=== PATIENT | male | born 1950 | race Two or more races ===

== ENCOUNTER 2020-04-03 06:20 | Outpatient (REF) | payer OTHER, MEDICARE, SELFPAY ==
[2020-04-03 07:18] LABS: MANUAL DIFF FLAG NO
[2020-04-03 07:23] LABS: Basophils Absolute Auto 0.1 X10*3/uL (0.0-0.2); Basophils Percent Auto 0.7 % (0-2); Eosinophils Absolute Auto 0.4 X10*3/uL (0.0-0.4); Eosinophils Percent Auto 5.5 % (0-4); Hematocrit 42.6 % (42-52); Hemoglobin 13.9 g/dl (14.0-18.0); Imm Gran Abs Auto 0.02 X10*3/uL (0.00-0.03); Imm Gran Pct Auto 0.3 % (0.0-0.4); Lymphocytes Absolute Auto 1.4 X10*3/uL (1.2-4.9); Lymphocytes Percent Auto 20.1 % (20-40); Mean Corpuscular HGB Conc 32.6 g/dl (31.0-36.0); Mean Corpuscular Hemoglobin 27.1 pg (27.0-33.0); Mean Platelet Volume 11.2 fL (9.4-12.4); Monocytes Absolute Auto 0.6 X10*3/uL (0.1-1.2); Monocytes Percent Auto 7.9 % (2-11); Neutrophils Absolute Auto 4.7 X10*3/uL (2.0-8.3); Neutrophils Percent Auto 65.5 % (45-73); Platelet Count 165 X10*3/uL (160-400); Red Blood Count 5.13 X10*6/uL (4.60-5.80); Red Cell Distribution Width 13.2 % (11.0-16.0); White Blood Count 7.1 X10*3/uL (4.8-10.8)
[2020-04-03 07:31] LABS: Glucose Urine UA NEG (NEG); Leukocyte Esterase Urine NEG (NEG); Nitrite Urine NEG (NEG); PH 5.5 (5.0-8.0); Specific Gravity - Urine 1.025 (1.005-1.025); Urine Blood NEG (NEG); Urine Ketones NEG (NEG); Urine Protein NEG (NEG-TRACE)
[2020-04-03 07:32] LABS: Appearance Urine CLEAR; Color Urine YELLOW
[2020-04-03 07:34] LABS: Alanine Aminotransferase 23 U/L (0-40); Albumin Level 4.2 g/dL (3.5-5.0); Alkaline Phosphatase 54 U/L (39-117); Anion Gap 13 (12-20); Aspartate Amino Transferase 19 U/L (5-37); Bilirubin Total 0.3 mg/dL (0.0-1.0); Blood Urea Nitrogen 19 mg/dL (9-16); Calcium 9.1 mg/dL (8.4-10.2); Carbon Dioxide 27 mmol/L (22-29); Chloride 103 mmol/L (96-108); Cholesterol 129 mg/dL; Estimated Glomerular Filt Rate > 60; Glucose Fasting 122 mg/dL (60-99); HDL Cholesterol 41 mg/dL; LDL Cholesterol Calculated 73 mg/dl; Potassium 4.9 mmol/l (3.3-5.1); Sodium 138 mmol/L (135-145); Total Protein 6.8 g/dL (6.5-8.0); Triglycerides 76 mg/dL
[2020-04-03 07:47] LABS: RBC Urine 0 /HPF (0); WBC Urine 0 /HPF (0-4)
[2020-04-03 07:59] LABS: TSH reflex Free T4 1.42 mIU/mL (0.32-4.0); Vitamin D 25-OH Total 47.3 ng/mL (>30)
[2020-04-03 08:32] LABS: Creatinine Urine 103.43 mg/dL; Microalbum/Creatinine Ratio Ur 4.8 ug/mg cr
== END 2020-04-03 06:21 | disposition home or self-care (01) ==
LOC: HO.LAB 06:20
PROVIDERS: Visit Provider Internal Medicine
DX: E78.5 Hyperlipidemia, unspecified (principal); E11.9 Type 2 diabetes mellitus without complications; I10 Essential (primary) hypertension; E55.9 Vitamin D deficiency, unspecified; E66.3 Overweight
CPT/HCPCS: 36415; 80053; 80061; 81001; 82043; 82306; 84443; 85025

== ENCOUNTER 2020-08-01 06:22 | Outpatient (REF) | payer OTHER, MEDICARE, SELFPAY ==
[2020-08-01 07:51] LABS: MANUAL DIFF FLAG NO
[2020-08-01 07:54] LABS: Basophils Absolute Auto 0.1 X10*3/uL (0.0-0.2); Basophils Percent Auto 0.8 % (0-2); Eosinophils Absolute Auto 0.4 X10*3/uL (0.0-0.4); Eosinophils Percent Auto 5.1 % (0-4); Hematocrit 45.2 % (42-52); Imm Gran Abs Auto 0.04 X10*3/uL (0.00-0.03); Imm Gran Pct Auto 0.5 % (0.0-0.4); Lymphocytes Absolute Auto 1.9 X10*3/uL (1.2-4.9); Lymphocytes Percent Auto 22.5 % (20-40); Mean Corpuscular HGB Conc 33.2 g/dl (31.0-36.0); Mean Corpuscular Hemoglobin 27.6 pg (27.0-33.0); Mean Corpuscular Volume 83.2 fL (80-98); Mean Platelet Volume 11.1 fL (9.4-12.4); Monocytes Absolute Auto 0.6 X10*3/uL (0.1-1.2); Monocytes Percent Auto 6.9 % (2-11); Neutrophils Absolute Auto 5.4 X10*3/uL (2.0-8.3); Neutrophils Percent Auto 64.2 % (45-73); Platelet Count 165 X10*3/uL (160-400); Red Blood Count 5.43 X10*6/uL (4.60-5.80); Red Cell Distribution Width 13.2 % (11.0-16.0); White Blood Count 8.4 X10*3/uL (4.8-10.8)
[2020-08-01 07:59] LABS: Estimated Average Glucose 140 mg/dL; Hemoglobin A1c % 6.5 %
[2020-08-01 08:09] LABS: Glucose Urine UA NEG (NEG); Leukocyte Esterase Urine NEG (NEG); Nitrite Urine NEG (NEG); Urine Blood NEG (NEG); Urine Ketones NEG (NEG); Urine Protein NEG (NEG-TRACE)
[2020-08-01 08:11] LABS: Appearance Urine CLEAR; Color Urine YELLOW
[2020-08-01 08:16] LABS: Alanine Aminotransferase 20 U/L (0-40); Albumin Level 4.5 g/dL (3.5-5.0); Alkaline Phosphatase 63 U/L (39-117); Anion Gap 11 (12-20); Aspartate Amino Transferase 18 U/L (5-37); Bilirubin Total 0.7 mg/dL (0.0-1.0); Blood Urea Nitrogen 19 mg/dL (9-16); Calcium 9.5 mg/dL (8.4-10.2); Carbon Dioxide 30 mmol/L (22-29); Chloride 103 mmol/L (96-108); Cholesterol 150 mg/dL; Estimated Glomerular Filt Rate 60; Glucose Fasting 143 mg/dL (60-99); HDL Cholesterol 40 mg/dL; LDL Cholesterol Calculated 89 mg/dl; Potassium 5.5 mmol/L (3.3-5.1); Sodium 138 mmol/L (135-145); Total Protein 7.2 g/dL (6.5-8.0); Triglycerides 105 mg/dL
[2020-08-01 08:39] LABS: TSH reflex Free T4 1.49 uIU/mL (0.32-4.0); Vitamin D 25-OH Total 43.1 ng/mL (>30)
== END 2020-08-01 06:23 | disposition home or self-care (01) ==
LOC: HO.LAB 06:22
PROVIDERS: PCP Internal Medicine; Visit Provider Internal Medicine
DX: I10 Essential (primary) hypertension (principal); E78.00 Pure hypercholesterolemia, unspecified; E11.9 Type 2 diabetes mellitus without complications; E55.9 Vitamin D deficiency, unspecified
CPT/HCPCS: 36415; 80053; 80061; 81003; 82306; 83036; 84443; 85025

== ENCOUNTER 2021-04-03 06:12 | Outpatient (REF) | payer OTHER, MEDICARE, SELFPAY ==
[2021-04-03 06:18] LABS: MANUAL DIFF FLAG NO
[2021-04-03 08:33] LABS: Basophils Percent Auto 0.5 % (0-2); Eosinophils Absolute Auto 0.5 X10*3/uL (0.0-0.4); Eosinophils Percent Auto 6.4 % (0-4); Hematocrit 43.2 % (42.0-52.0); Hemoglobin 14.4 g/dl (14.0-18.0); Imm Gran Abs Auto 0.03 X10*3/uL (0.00-0.03); Imm Gran Pct Auto 0.4 % (0.0-0.4); Lymphocytes Absolute Auto 1.7 X10*3/uL (1.2-4.9); Mean Corpuscular HGB Conc 33.3 g/dl (31.0-36.0); Mean Corpuscular Volume 81.1 fL (80.0-98.0); Mean Platelet Volume 11.3 fL (9.4-12.4); Monocytes Absolute Auto 0.7 X10*3/uL (0.1-1.2); Monocytes Percent Auto 8.4 % (2-11); Neutrophils Absolute Auto 5.4 x10*3/uL (2.0-8.3); Neutrophils Percent Auto 64.3 % (45-73); Platelet Count 164 X10*3/uL (160-400); Red Blood Count 5.33 X10*6/uL (4.60-5.80); Red Cell Distribution Width 12.8 % (11.0-16.0); White Blood Count 8.5 X10*3/uL (4.8-10.8)
[2021-04-03 09:13] LABS: Alanine Aminotransferase 18 U/L (0-40); Albumin Level 4.4 g/dL (3.5-5.0); Alkaline Phosphatase 66 U/L (39-117); Anion Gap 11 (12-20); Aspartate Amino Transferase 16 U/L (5-37); Bilirubin Total 0.4 mg/dL (0.0-1.0); Blood Urea Nitrogen 21 mg/dL (9-16); Calcium 9.2 mg/dL (8.4-10.2); Carbon Dioxide 28 mmol/L (22-29); Chloride 105 mmol/L (96-108); Cholesterol 154 mg/dL; Estimated Glomerular Filt Rate 59; Glucose Fasting 157 mg/dL (60-99); HDL Cholesterol 34 mg/dL; LDL Cholesterol Calculated 99 mg/dl; Potassium 4.4 mmol/L (3.3-5.1); Sodium 140 mmol/L (135-145); Triglycerides 105 mg/dL
[2021-04-03 09:16] LABS: Appearance Urine CLEAR; Color Urine YELLOW; Glucose Urine UA NEG (NEG); Leukocyte Esterase Urine NEG (NEG); Nitrite Urine NEG (NEG); Specific Gravity - Urine 1.025 (1.005-1.025); Urine Blood NEG (NEG); Urine Ketones NEG (NEG); Urine Protein NEG (NEG-TRACE)
[2021-04-03 09:21] LABS: TSH reflex Free T4 1.65 uIU/mL (0.32-4.0); Vitamin D 25-OH Total 34.8 ng/mL (>30)
[2021-04-03 09:48] LABS: Creatinine Urine 155.56 mg/dL; Microalbum/Creatinine Ratio Ur 8.3 ug/mg cr
[2021-04-03 14:00] LABS: Estimated Average Glucose 174 mg/dL; Hemoglobin A1c % 7.7 %
== END 2021-04-03 06:13 | disposition home or self-care (01) ==
LOC: HO.LAB 06:12
PROVIDERS: PCP Internal Medicine; Visit Provider Internal Medicine
DX: E78.00 Pure hypercholesterolemia, unspecified (principal); E11.9 Type 2 diabetes mellitus without complications; E55.9 Vitamin D deficiency, unspecified; I10 Essential (primary) hypertension
CPT/HCPCS: 36415; 80053; 80061; 81003; 82043; 82306; 83036; 84443; 85025

== ENCOUNTER 2021-08-04 05:59 | Outpatient (REF) | payer OTHER, MEDICARE, SELFPAY ==
[2021-08-04 06:13] LABS: MANUAL DIFF FLAG NO
[2021-08-04 07:12] LABS: Basophils Absolute Auto 0.1 X10*3/uL (0.0-0.2); Basophils Percent Auto 0.6 % (0-2); Eosinophils Absolute Auto 0.5 X10*3/uL (0.0-0.4); Eosinophils Percent Auto 5.1 % (0-4); Hematocrit 41.6 % (42.0-52.0); Hemoglobin 13.5 g/dl (14.0-18.0); Imm Gran Abs Auto 0.06 X10*3/uL (0.00-0.03); Imm Gran Pct Auto 0.6 % (0.0-0.4); Lymphocytes Absolute Auto 1.9 X10*3/uL (1.2-4.9); Lymphocytes Percent Auto 19.7 % (20-40); Mean Corpuscular HGB Conc 32.5 g/dl (31.0-36.0); Mean Corpuscular Hemoglobin 26.7 pg (27.0-33.0); Mean Corpuscular Volume 82.4 fL (80.0-98.0); Mean Platelet Volume 10.7 fL (9.4-12.4); Monocytes Absolute Auto 0.7 X10*3/uL (0.1-1.2); Monocytes Percent Auto 6.7 % (2-11); Neutrophils Absolute Auto 6.5 x10*3/uL (2.0-8.3); Neutrophils Percent Auto 67.3 % (45-73); Platelet Count 207 X10*3/uL (160-400); Red Blood Count 5.05 X10*6/uL (4.60-5.80); Red Cell Distribution Width 13.2 % (11.0-16.0); White Blood Count 9.7 X10*3/uL (4.8-10.8)
[2021-08-04 07:18] LABS: Estimated Average Glucose 154 mg/dL
[2021-08-04 07:29] LABS: Alanine Aminotransferase 18 U/L (0-40); Albumin Level 4.5 g/dL (3.5-5.0); Alkaline Phosphatase 67 U/L (39-117); Anion Gap 14 (12-20); Aspartate Amino Transferase 15 U/L (5-37); Bilirubin Total 0.4 mg/dL (0.0-1.0); Blood Urea Nitrogen 18 mg/dL (9-16); Calcium 9.7 mg/dL (8.4-10.2); Carbon Dioxide 26 mmol/L (22-29); Chloride 104 mmol/L (96-108); Cholesterol 151 mg/dL; Estimated Glomerular Filt Rate > 60; Glucose Fasting 157 mg/dL (60-99); HDL Cholesterol 40 mg/dL; LDL Cholesterol Calculated 93 mg/dl; Sodium 139 mmol/L (135-145); Total Protein 7.2 g/dL (6.5-8.0); Triglycerides 93 mg/dL
[2021-08-04 07:50] LABS: Vitamin D 25-OH Total 34.7 ng/mL (>30)
[2021-08-04 08:42] LABS: Appearance Urine CLEAR; Color Urine YELLOW; Glucose Urine UA NEG (NEG); Leukocyte Esterase Urine NEG (NEG); Nitrite Urine NEG (NEG); Specific Gravity - Urine 1.025 (1.005-1.025); Urine Blood NEG (NEG); Urine Ketones NEG (NEG); Urine Protein NEG (NEG-TRACE)
[2021-08-04 08:49] LABS: Creatinine Urine 170.09 mg/dL; Microalbum/Creatinine Ratio Ur 10.5 ug/mg cr
== END 2021-08-04 06:00 | disposition home or self-care (01) ==
LOC: HO.LAB 05:59
PROVIDERS: PCP Internal Medicine; Visit Provider Internal Medicine
DX: E78.00 Pure hypercholesterolemia, unspecified (principal); E55.9 Vitamin D deficiency, unspecified; E11.9 Type 2 diabetes mellitus without complications; I10 Essential (primary) hypertension
CPT/HCPCS: 36415; 80053; 80061; 81003; 82043; 82306; 83036; 84443; 85025

== ENCOUNTER 2021-12-07 06:06 | Outpatient (REF) | payer OTHER, MEDICARE, SELFPAY ==
[2021-12-07 06:23] LABS: MANUAL DIFF FLAG NO
[2021-12-07 08:00] LABS: Basophils Absolute Auto 0.1 X10*3/uL (0.0-0.2); Basophils Percent Auto 0.9 % (0-2); Eosinophils Absolute Auto 0.5 X10*3/uL (0.0-0.4); Eosinophils Percent Auto 6.1 % (0-4); Hematocrit 44.6 % (42.0-52.0); Hemoglobin 14.2 g/dl (14.0-18.0); Imm Gran Abs Auto 0.03 X10*3/uL (0.00-0.03); Imm Gran Pct Auto 0.4 % (0.0-0.4); Lymphocytes Absolute Auto 1.4 X10*3/uL (1.2-4.9); Lymphocytes Percent Auto 17.9 % (20-40); Mean Corpuscular HGB Conc 31.8 g/dl (31.0-36.0); Mean Corpuscular Volume 81.5 fL (80.0-98.0); Monocytes Absolute Auto 0.5 X10*3/uL (0.1-1.2); Monocytes Percent Auto 6.7 % (2-11); Neutrophils Absolute Auto 5.4 x10*3/uL (2.0-8.3); Platelet Count 159 X10*3/uL (160-400); Red Blood Count 5.47 X10*6/uL (4.60-5.80); Red Cell Distribution Width 13.4 % (11.0-16.0); White Blood Count 7.9 X10*3/uL (4.8-10.8)
[2021-12-07 08:08] LABS: Estimated Average Glucose 154 mg/dL
[2021-12-07 08:34] LABS: Alanine Aminotransferase 21 U/L (0-40); Albumin Level 4.3 g/dL (3.5-5.0); Alkaline Phosphatase 66 U/L (39-117); Anion Gap 15 (12-20); Aspartate Amino Transferase 19 U/L (5-37); Bilirubin Total 0.3 mg/dL (0.0-1.0); Blood Urea Nitrogen 16 mg/dL (9-16); Carbon Dioxide 25 mmol/L (22-29); Chloride 106 mmol/L (96-108); Cholesterol 129 mg/dL; Estimated Glomerular Filt Rate > 60; Glucose Fasting 156 mg/dL (60-99); HDL Cholesterol 40 mg/dL; LDL Cholesterol Calculated 73 mg/dl; Potassium 4.8 mmol/L (3.3-5.1); Sodium 141 mmol/L (135-145); Total Protein 6.8 g/dL (6.5-8.0); Triglycerides 81 mg/dL
[2021-12-07 09:00] LABS: TSH reflex Free T4 1.55 uIU/mL (0.32-4.0); Vitamin D 25-OH Total 37.4 ng/mL (>30)
[2021-12-07 09:00] LABS: Appearance Urine CLEAR; Color Urine YELLOW; Glucose Urine UA NEG (NEG); Leukocyte Esterase Urine NEG (NEG); Nitrite Urine NEG (NEG); PH 5.5 (5.0-8.0); Specific Gravity - Urine 1.025 (1.005-1.025); Urine Blood NEG (NEG); Urine Ketones NEG (NEG); Urine Protein NEG (NEG-TRACE)
[2021-12-07 09:09] LABS: Creatinine Urine 162.57 mg/dL
== END 2021-12-07 06:07 | disposition home or self-care (01) ==
LOC: HO.LAB 06:06
PROVIDERS: PCP Internal Medicine; Visit Provider Internal Medicine
DX: E78.00 Pure hypercholesterolemia, unspecified (principal); E55.9 Vitamin D deficiency, unspecified; E11.9 Type 2 diabetes mellitus without complications; I10 Essential (primary) hypertension
CPT/HCPCS: 36415; 80053; 80061; 81003; 82043; 82306; 83036; 84443; 85025

== ENCOUNTER 2021-12-18 06:02 | Outpatient (REF) | payer OTHER, MEDICARE, SELFPAY ==
[2021-12-18 08:09] LABS: Prostate Specific Antigen 0.85 ng/mL (<0.05-4.0)
== END 2021-12-18 06:03 | disposition home or self-care (01) ==
LOC: HO.LAB 06:02
PROVIDERS: PCP Internal Medicine; Visit Provider Nurse Practitioner Family
DX: Z12.5 Encounter for screening for malignant neoplasm of prostate (principal)
CPT/HCPCS: 36415; 84153

== ENCOUNTER 2021-12-24 06:26 | Outpatient (REF) | payer OTHER, MEDICARE, SELFPAY ==
--- NOTE | ~2021-12-24 | XR_ITS ---
EXAMINATION: XR CERVICAL SPINE CLINICAL INFORMATION: Radiculopathy, cervical area. COMPARISON: None TECHNIQUE: 4 views of cervical spine. FINDINGS: No abnormal prevertebral soft tissue swelling is seen. No acute cervical spine fracture is noted. There is mild spurring seen anteriorly C5 through C7. There is mild disc space narrowing at the L5-S1 level. XR/XR cervical spine 3V IMPRESSION: Mild cervical spondylosis without evidence of acute fracture.
== END 2021-12-24 06:27 | disposition home or self-care (01) ==
LOC: HO.XRAY 06:26
PROVIDERS: PCP Internal Medicine; Visit Provider Internal Medicine
DX: M54.12 Radiculopathy, cervical region (principal)
CPT/HCPCS: 72040

== ENCOUNTER 2022-04-09 19:40 | Emergency (ER) | payer OTHER, MEDICARE, SELFPAY ==
--- NOTE | ~2022-04-09 | CT_ITS ---
EXAMINATION: CT ABDOMEN AND PELVIS WITHOUT CONTRAST CLINICAL INFORMATION: pt c abd pain right sided now going to left . COMPARISON: No pertinent prior studies are available for comparison. TECHNIQUE: Multidetector volumetric imaging was performed from the superior aspect of the liver through the pubic symphysis without contrast per renal stone protocol. Sagittal and coronal reformatted images were obtained on the technologist workstation. This CT examination was performed using dose optimization techniques as appropriate, variously including the following: *Automated exposure control *Adjustment of mA and/or kV according to patient size (this includes techniques or standardized protocols for targeted exams where dose is matched to indication/reason for exam; i.e. extremities or head) *Use of iterative reconstruction technique DLP: 515 mGy-cm. FINDINGS: LUNG BASES: The visualized lung bases are unremarkable. LIVER, GALLBLADDER, BILIARY TREE: The non-contrast liver is normal in size, shape, and attenuation. Low-attenuation probable cyst in the lateral segment 8 of the liver. No suspicious focal hepatic lesion or biliary ductal dilatation is present. The gallbladder is unremarkable with no evidence of radiopaque gallstones, gallbladder wall thickening, or obvious pericholecystic inflammatory changes. PANCREAS: Unremarkable. SPLEEN: Unremarkable. ADRENAL GLANDS: Unremarkable. KIDNEYS AND URETERS: The kidneys are normal in size, shape, and attenuation. No hydronephrosis, hydroureter, or calculi seen. No perinephric stranding. BLADDER: Decompressed but otherwise unremarkable GASTROINTESTINAL TRACT: No colonic wall thickening or pericolonic inflammatory change. Colon is relatively redundant. Fluid-filled loops of mid-distal small bowel without discrete transition point extending to the fluid-filled cecum. I do not appreciate any significant perienteric inflammatory changes. Normal-appearing appendix in the right lower quadrant with no periappendiceal inflammatory change either. ABDOMINAL WALL: Tiny periumbilical fat-containing hernia LYMPHOVASCULAR STRUCTURES: Mild vascular calcification within the aorta iliac system.. PELVIC VISCERA: Unremarkable. OSSEUS STRUCTURES: Unremarkable. CT/CT abdomen pelvis wo IV con IMPRESSION: Fluid-filled loops of mid-distal small bowel extending to the cecum. I do not appreciate any discrete transition point or significant perienteric inflammatory changes. I do not appreciate any significant colonic wall thickening or pericolonic inflammatory change. No obstructive changes to the bowel.
--- NOTE | 2022-04-09 20:24 | ED.ABDPAIN ---
HPI - Abdominal Pain General Chief Complaint: Abdominal Pain <KOLBY Oliveira - Last Filed: 04/09/22 20:28> Stated Complaint: lower abd pain,vomiting <KOLBY Oliveira - Last Filed: 04/09/22 20:28> Time Seen by Provider: 04/09/22 21:50 <KOLBY Oliveira - Last Filed: 04/09/22 20:28> Source: patient and family (patient's ) <KOLBY Meza - Last Filed: 04/09/22 22:42> Mode of arrival: ambulatory <KOLBY Meza Last Filed: 04/09/22 22:42> Limitations: no limitations <KOLBY Meza Last Filed: 04/09/22 22:42> History of Present Illness HPI narrative: Patient is a 71 year old assigned male at with a history of DM presenting to the emergency department today with nausea, vomiting, and abdominal pain. Patient states that over the last 3 days he has had generalized abdominal pain with nausea and vomiting. Patient states that his last BM was today and they have been normal. Patient denies any dizziness, lightheadedness, fever, chills, blurry vision, double vision, loss of vision, chest pain, difficulty breathing, shortness of breath, back pain, night sweats, pain with urination, increased urinary frequency, increased urinary urgency, blood in his urine or stool, syncope or a near syncopal episode, recent trauma or falls, bowel incontinence, bladder incontinence, bowel retention, bladder retention, or any other complaints at this time. <KOLBY Meza - Last Filed: 04/09/22 22:42> MD elicited complaint: abdominal pain <KOLBY Meza - Last Filed: 04/09/22 22:42> Pertinent past history: none <KOLBY Meza Last Filed: 04/09/22 22:42> Onset (ago): day(s) (3) <KOLBY Meza - Last Filed: 04/09/22 22:42> Pain Consistency: constant <KOLBY Meza Last Filed: 04/09/22 22:42> Location: diffuse <KOLBY Meza Last Filed: 04/09/22 22:42> Severity: mild <KOLBY Meza - Last Filed: 04/09/22 22:42> Pain scale (0-10): 4 <KOLBY Meza Last Filed: 04/09/22 22:42> Quality: aching and dull <KOLBY Meza Last Filed: 04/09/22 22:42> Radiation: none <KOLBY Meza Last Filed: 04/09/22 22:42> Exacerbating factors: nothing <KOLBY Meza Last Filed: 04/09/22 22:42> Relieving factors: nothing <KOLBY Meza Last Filed: 04/09/22 22:42> Associated symptoms: nausea and vomiting <KOLBY Meza Last Filed: 04/09/22 22:42> Related Data Home Medications: Home Medications Medication Instructions Recorded Confirmed cholecalciferol (vitamin D3) 25 25 mcg PO DAILY 03/10/20 12/22/21 mcg (1,000 unit) capsule fexofenadine 180 mg tablet 180 mg PO DAILY PRN allergy 03/10/20 12/22/21 (Brooke Allergy) symptoms Previous Rx's Medication Instructions Recorded blood sugar diagnostic (FreeStyle 1 strip miscellaneous TID #100 02/11/21 Lite Strips) strips lancets 28 gauge (FreeStyle 28 gauge miscellaneous TID for 10/27/21 Lancets) diabetes mellitus #100 ea sitagliptin phosphate 100 mg 100 mg PO DAILY 90 days #90 tabs 10/27/21 tablet (Januvia) metformin 500 mg tablet,extended 500 mg PO BID 90 days #180 tabs 11/02/21 release 24 hr atorvastatin 10 mg tablet 10 mg PO BEDTIME 90 days #90 tabs 02/03/22 lisinopril 20 mg tablet 20 mg PO DAILY 90 days #90 tabs 02/03/22 ondansetron 4 mg disintegrating 4 mg PO Q8H 3 days #9 tabs 04/09/22 tablet <KOLBY Oliveira Last Filed: 04/09/22 20:28> Allergies/Adverse Reactions: Allergies Allergy/AdvReac Type Severity Reaction Status Date / Time No Known Allergies Allergy Verified 12/22/21 16:14 [No Known Allergies*] <KOLBY Oliveira - Last Filed: 04/09/22 20:28> Review of Systems Constitutional: Reports no additional constitutional complaints, Denies chills, Denies fever(s) and Denies night sweats <KOLBY Meza Last Filed: 04/09/22 22:42> Eyes: Reports no additional eye complaints, Denies blurry vision, Denies change in vision, Denies diplopia, Denies eye discharge, Denies loss of vision and Denies eye pain <KOLBY Meza - Last Filed: 04/09/22 22:42> Denies dizziness <KOLBY Meza - Last Filed: 04/09/22 22:42> Cardiovascular: Reports no additional cardiovascular complaints, Denies chest pain, Denies lightheadedness, Denies Loss of Consciousness and Denies dyspnea <KOLBY Meza - Last Filed: 04/09/22 22:42> Respiratory: Reports no additional respiratory complaints and Denies dyspnea <KOLBY Meza - Last Filed: 04/09/22 22:42> Gastrointestinal: Reports no additional gastrointestinal complaints, Reports abdominal pain, Denies melena, Denies hematochezia, Denies change in bowel habits, Denies change in stool character, Reports nausea and Reports vomiting <KOLBY Meza - Last Filed: 04/09/22 22:42> Genitourinary: Reports no additional male genitourinary complaints, Denies hematuria, Denies oliguria, Denies difficulty urinating, Denies dysuria, Denies urinary frequency, Denies urinary hesitancy, Denies urinary incontinence and Denies urinary urgency <KOLBY Meza - Last Filed: 04/09/22 22:42> Musculoskeletal: Reports no additional musculoskeletal complaints, Denies numbness and Denies tingling <KOLBY Meza - Last Filed: 04/09/22 22:42> Denies dizziness, Denies loss of vision, Denies numbness and Denies tingling <KOLBY Meza - Last Filed: 04/09/22 22:42> Psychiatric: Reports no additional psychiatric complaints <KOLBY Meza Last Filed: 04/09/22 22:42> Endocrine: Reports no additional endocrine complaints <KOLBY Meza - Last Filed: 04/09/22 22:42> Hematologic/Lymphatic: Reports no additional hematologic/lymphatic complaints <KOLBY Meza - Last Filed: 04/09/22 22:42> Allergic/Immunologic: Reports no additional allergic/immunologic complaints <KOLBY Meza - Last Filed: 04/09/22 22:42> [facility] Past Medical History Attestation statement: The following information was validated with the patient. <KOLBY Meza - Last Filed: 04/09/22 22:42> Source: old records reviewed, obtained from family (patient's ) and nursing notes reviewed <KOLBY Meza - Last Filed: 04/09/22 22:42> Medical History: Medical History Benign essential hypertension Diabetes mellitus Overweight (BMI 25.0-29.9) Pure hypercholesterolemia Syncope Vitamin D deficiency <KOLBY Oliveira - Last Filed: 04/09/22 20:28> Surgical History: Surgical History History of colonoscopy <KOLBY Oliveira - Last Filed: 04/09/22 20:28> Family History Family History: Family History Father Hypertension Diabetes Mother Diabetes Hypertension <KOLBY Oliveira - Last Filed: 04/09/22 20:28> Social History Social History: Social History Housing: House Alcohol intake: never Patient Tobacco Use Status: Never used Tobacco Second Hand Smoke Exposure: Yes Advance Directives: Yes Advance Directives on File: Yes Advance Directives Date on File: 12/24/21 service: No Current occupational status: retired Cognitive needs: No Hearing needs: No Vision needs: Yes <KOLBY Oliveira - Last Filed: 04/09/22 20:28> Physical Exam ED Vital Signs: Vital Signs - 24 hr 04/09/22 20:25 Temperature 98.7 F Pulse Rate 93 Respiratory Rate 18 Blood Pressure 145/77 H Pulse Oximetry 95 Oxygen Delivery Method Room Air BMI result Body Mass Index 28.3 <KOLBY Oilveira - Last Filed: 04/09/22 20:28> Vital Signs - 24 hr 04/09/22 20:25 Temperature 98.7 F Pulse Rate 93 Respiratory Rate 18 Blood Pressure 145/77 H Pulse Oximetry 95 Oxygen Delivery Method Room Air BMI result Body Mass Index 28.3 <KOLBY Meza - Last Filed: 04/09/22 22:42> Const General: cooperative, no acute distress, alert and awake <KOLBY Meza - Last Filed: 04/09/22 22:42> Nutritional Appearance: well nourished <KOLBY Meza - Last Filed: 04/09/22 22:42> Orientation/consciousness: patient oriented x3 <KOLBY Meza - Last Filed: 04/09/22 22:42> Limitations: no limitations <KOLBY Meza - Last Filed: 04/09/22 22:42> HENMT Head: Yes normal to inspection and Yes atraumatic <KOLBY Meza - Last Filed: 04/09/22 22:42> Ears: hearing grossly normal bilaterally and external ears normal <KOLBY Meza - Last Filed: 04/09/22 22:42> General nose exam: Normal external nose present, no nasal discharge noted and no epistaxis <KOLBY Meza - Last Filed: 04/09/22 22:42> Face and sinus: Yes normal facial exam, No abrasion and No laceration <KOLBY Meza - Last Filed: 04/09/22 22:42> Mouth: Normal oral and palatal mucosa present, no drooling and no muffled voice <KOLBY Meza - Last Filed: 04/09/22 22:42> Eyes General: appearance normal, both eyes and all related structures <KOLBY Meza - Last Filed: 04/09/22 22:42> Periorbital: periorbital findings normal <KOLBY Meza - Last Filed: 04/09/22 22:42> Eyelids: Yes eyelids normal <KOLBY Meza - Last Filed: 04/09/22 22:42> Conjunctivae: conjunctivae normal <KOLBY Meza - Last Filed: 04/09/22 22:42> Pupils: Equal, round and reactive pupils present <Magdalena Hernandez PA - Last Filed: 04/09/22 22:42> EOM: EOMs intact bilaterally <Magdalena Hernandez PA - Last Filed: 04/09/22 22:42> Neck Neck: Yes normal visual inspection, Yes full ROM and Yes no lymphadenopathy <Magdalena Hernandez PA - Last Filed: 04/09/22 22:42> Chest Chest palpation & inspection: normal inspection of the chest <Magdalena Hernandez PA - Last Filed: 04/09/22 22:42> Resp Effort & Inspection: normal respiratory effort and able to speak in complete sentences <Magdalena Hernandez PA - Last Filed: 04/09/22 22:42> Auscultation: clear to auscultation bilaterally <Magdalena Hernandez PA - Last Filed: 04/09/22 22:42> Cardio Rate: regular rate <Magdalena Hernandez PA - Last Filed: 04/09/22 22:42> Rhythm: regular rhythm <Magdalena Hernandez PA - Last Filed: 04/09/22 22:42> GI Inspection: Yes normal to inspection <Magdalena Hernandez PA - Last Filed: 04/09/22 22:42> Palpation (GI): Soft to palpation, not firm, nontender, no guarding and not rigid <Magdalena Hernandez PA - Last Filed: 04/09/22 22:42> Neuro General: patient oriented x3 and moves all extremities <Magdalena Hernandez PA - Last Filed: 04/09/22 22:42> Cranial nerves: Yes Equal, round and reactive pupils present <Magdalena Hernandez PA - Last Filed: 04/09/22 22:42> Cognition (Neuro): normal cognition <Magdalena Hernandez PA - Last Filed: 04/09/22 22:42> Motor exam (neuro): 5/5 motor strength present throughout <Magdalena Hernandez PA - Last Filed: 04/09/22 22:42> Sensory Exam: Normal double simultaneous stimulation for sensation <Magdalena Hernandez PA - Last Filed: 04/09/22 22:42> Coordination: [id number] test normal <Magdalena Prasadpraveen PA - Last Filed: 04/09/22 22:42> Extrem General: Yes normal to inspection, Yes full ROM and Yes capillary refill normal <KOLBY Meza - Last Filed: 04/09/22 22:42> Psych Appearance: grossly normal <KOLBY Meza Last Filed: 04/09/22 22:42> Mental Status: mental status grossly normal <KOLBY Meza Last Filed: 04/09/22 22:42> Affect: normal affect <KOLBY Meza - Last Filed: 04/09/22 22:42> Attitude: cooperative <KOLBY Meza - Last Filed: 04/09/22 22:42> Thought process: Normal thought process present <KOLBY Meza Last Filed: 04/09/22 22:42> Thought content: Normal thought content present <KOLBY Meza Last Filed: 04/09/22 22:42> Insight: Good insight present (Psych) <KOLBY Meza - Last Filed: 04/09/22 22:42> Course Course Course Narrative: RME- 20:25PM - 71yoM c PMHx HTN, DM, HLD and obesity who is presenting to the ED with complaints of right lower quadrant abdominal pain that is radiating to the left side of his abdomen x 3 days. Denies any fevers, nausea/vomiting, chest pain or shortness of breath, cough, sore throat, nasal congestion/rhinorrhea, back pain, flank pain, dysuria, hematuria, abnormal penile discharge, diarrhea constipation or any other symptoms complaints or concerns at this time. Plan: Will obtain labs, UA, CT scan abdomen pelvis without IV contrast. Patient is stable to be sent back to the waiting room to be evaluated in the ED. <KOLBY Oliveira - Last Filed: 04/09/22 20:28> Medical Decision Making Medical Decision Making MDM Narrative: Patient is a 71 year old assigned male at with a history of DM presenting to the emergency department today with nausea, vomiting, and abdominal pain. Patient's physical exam was unremarkable. Patient's blood work showed a slightly elevated WBC count however, I believe this to be a stress reaction. Patient's urine showed no acute process. Patient's abdominal CT showed no acute process. I explained my physical exam findings as well as all test results to the patient and the patient's . I answered all questions asked by the patient and the patient's . I stressed the importance of the patient taking his medication as prescribed. I stressed the importance of the patient following up with his primary care provider and a GI specialist. I stressed the importance of the patient returning to the emergency department immediately if his symptoms were to worsen or if he were to develop any dizziness, shortness of breath, difficulty breathing, chest pain, blurry vision, loss of vision, nausea, vomiting, abdominal pain, fever, chills, back pain, or any other complaints. Patient and the patient's verbalized agreement and understanding with this treatment plan and discharge. <KOLBY Meza - Last Filed: 04/09/22 22:42> Differential Diagnosis Differential Diagnoses: The differential diagnosis associated with the presentation includes <KOLBY Meza - Last Filed: 04/09/22 22:42> nausea, vomiting, enteritis <KOLBY Meza - Last Filed: 04/09/22 22:42> Lab Data MDM Lab Attestation statement: I reviewed the patient's lab results. <KOLBY Meza - Last Filed: 04/09/22 22:42> Result Diagrams: : 04/09/22 20:45 04/09/22 20:45 <KOLBY Oliveira - Last Filed: 04/09/22 20:28> Labs: Lab Results 04/09/22 04/09/22 04/09/22 Range/Units 20:30 20:30 20:45 WBC 12.2 H (4.8-10.8) X10*3/uL RBC 5.82 H (4.60-5.80) X10*6/uL Hgb 15.2 (14.0-18.0) g/dl Hct 47.0 (42.0-52.0) % MCV 80.8 (80.0-98.0) fL MCH 26.1 L (27.0-33.0) pg MCHC 32.3 (31.0-36.0) g/dl RDW 13.0 (11.0-16.0) % Plt Count 221 D (160-400) X10*3/uL MPV 10.4 (9.4-12.4) fL Immature Gran % (Auto) 0.2 (0.0-0.4) % Neut % (Auto) 79.5 H (45-73) % Lymph % (Auto) 7.5 L (20-40) % [place] % (Auto) 12.3 H (2-11) % Eos % (Auto) 0.2 (0-4) % Baso % (Auto) 0.3 (0-2) % Lymph # (Auto) 0.9 L (1.2-4.9) X10*3/uL [place] # (Auto) 1.5 H (0.1-1.2) X10*3/uL Eos # (Auto) 0.0 (0.0-0.4) X10*3/uL Baso # (Auto) 0.0 (0.0-0.2) X10*3/uL Abs Immat Gran (auto) 0.02 (0.00-0.03) X10*3/uL Absolute Neuts (auto) 9.7 H (2.0-8.3) x10*3/uL Absolute Nucleated RBC 0.000 (0.0-0.012) X10*3/uL Nucleated RBC % (auto) 0.0 (0.0-0.2) /100WBC PT (10.0-13.1) SEC INR (0.9-1.1) Sodium (135-145) mmol/L Potassium (3.3-5.1) mmol/L Chloride (96-108) mmol/L Carbon Dioxide (22-29) mmol/L Anion Gap (12-20) BUN (9-16) mg/dL Creatinine (0.5-1.4) mg/dL Estim Creat Clear Calc Estimated GFR Random Glucose (60-115) mg/dL Calcium (8.4-10.2) mg/dL Magnesium (1.6-2.6) mg/dL Total Bilirubin (0.0-1.0) mg/dL AST (5-37) U/L ALT (0-40) U/L Alkaline Phosphatase (39-117) U/L Total Protein (6.5-8.0) g/dL Albumin (3.5-5.0) g/dL Urine Color Yellow Urine Appearance Clear Urine pH 5.0 (5.0-9.0) Ur Specific [place] 1.025 (1.005-1.025) Urine Protein 30 (1+) H (Neg-Trace) mg/dL Urine Glucose (UA) Negative (Negative) mg/dL Urine Ketones 15 (Negative) mg/dL Urine Blood Negative (Negative) Urine Nitrite Negative (Negative) Ur Leukocyte Esterase Negative (Negative) Urine RBC 0-2 (0-2) /HPF Urine WBC 0-5 (0-5) /HPF Ur Squamous Epith Cells 0-2 (0-2) /HPF Urine Bacteria None Seen (None Seen) Hyaline Casts 3-5 (0-2) /LPF Influenza Type A (PCR) NEGATIVE (Negative) Influenza Type B (PCR) NEGATIVE (Negative) RSV RNA Qual (PCR) NEGATIVE (Negative) SARS-CoV-2 RNA (RT-PCR) NEGATIVE (Negative) 04/09/22 04/09/22 Range/Units 20:45 20:45 WBC (4.8-10.8) X10*3/uL RBC (4.60-5.80) X10*6/uL Hgb (14.0-18.0) g/dl Hct (42.0-52.0) % MCV (80.0-98.0) fL MCH (27.0-33.0) pg MCHC (31.0-36.0) g/dl RDW (11.0-16.0) % Plt Count (160-400) X10*3/uL MPV (9.4-12.4) fL Immature Gran % (Auto) (0.0-0.4) % Neut % (Auto) (45-73) % Lymph % (Auto) (20-40) % [place] % (Auto) (2-11) % Eos % (Auto) (0-4) % Baso % (Auto) (0-2) % Lymph # (Auto) (1.2-4.9) X10*3/uL [place] # (Auto) (0.1-1.2) X10*3/uL Eos # (Auto) (0.0-0.4) X10*3/uL Baso # (Auto) (0.0-0.2) X10*3/uL Abs Immat Gran (auto) (0.00-0.03) X10*3/uL Absolute Neuts (auto) (2.0-8.3) x10*3/uL Absolute Nucleated RBC (0.0-0.012) X10*3/uL Nucleated RBC % (auto) (0.0-0.2) /100WBC PT 12.9 (10.0-13.1) SEC INR 1.1 (0.9-1.1) Sodium 137 (135-145) mmol/L Potassium 5.1 (3.3-5.1) mmol/L Chloride 101 (96-108) mmol/L Carbon Dioxide 23 (22-29) mmol/L Anion Gap 18 (12-20) BUN 27 H (9-16) mg/dL Creatinine 1.36 (0.5-1.4) mg/dL Estim Creat Clear Calc 49.1 Estimated GFR 52 Random Glucose 173 H (60-115) mg/dL Calcium 10.0 D (8.4-10.2) mg/dL Magnesium 2.0 (1.6-2.6) mg/dL Total Bilirubin 1.1 H (0.0-1.0) mg/dL AST 18 (5-37) U/L ALT 21 (0-40) U/L Alkaline Phosphatase 85 (39-117) U/L Total Protein 7.7 (6.5-8.0) g/dL Albumin 4.9 (3.5-5.0) g/dL Urine Color Urine Appearance Urine pH (5.0-9.0) Ur Specific [place] (1.005-1.025) Urine Protein (Neg-Trace) mg/dL Urine Glucose (UA) (Negative) mg/dL Urine Ketones (Negative) mg/dL Urine Blood (Negative) Urine Nitrite (Negative) Ur Leukocyte Esterase (Negative) Urine RBC (0-2) /HPF Urine WBC (0-5) /HPF Ur Squamous Epith Cells (0-2) /HPF Urine Bacteria (None Seen) Hyaline Casts (0-2) /LPF Influenza Type A (PCR) (Negative) Influenza Type B (PCR) (Negative) RSV RNA Qual (PCR) (Negative) SARS-CoV-2 RNA (RT-PCR) (Negative) <KOLBY Oliveira - Last Filed: 04/09/22 20:28> Lab Results 04/09/22 04/09/22 04/09/22 Range/Units 20:30 20:30 20:45 WBC 12.2 H (4.8-10.8) X10*3/uL RBC 5.82 H (4.60-5.80) X10*6/uL Hgb 15.2 (14.0-18.0) g/dl Hct 47.0 (42.0-52.0) % MCV 80.8 (80.0-98.0) fL MCH 26.1 L (27.0-33.0) pg MCHC 32.3 (31.0-36.0) g/dl RDW 13.0 (11.0-16.0) % Plt Count 221 D (160-400) X10*3/uL MPV 10.4 (9.4-12.4) fL Immature Gran % (Auto) 0.2 (0.0-0.4) % Neut % (Auto) 79.5 H (45-73) % Lymph % (Auto) 7.5 L (20-40) % [place] % (Auto) 12.3 H (2-11) % Eos % (Auto) 0.2 (0-4) % Baso % (Auto) 0.3 (0-2) % Lymph # (Auto) 0.9 L (1.2-4.9) X10*3/uL [place] # (Auto) 1.5 H (0.1-1.2) X10*3/uL Eos # (Auto) 0.0 (0.0-0.4) X10*3/uL Baso # (Auto) 0.0 (0.0-0.2) X10*3/uL Abs Immat Gran (auto) 0.02 (0.00-0.03) X10*3/uL Absolute Neuts (auto) 9.7 H (2.0-8.3) x10*3/uL Absolute Nucleated RBC 0.000 (0.0-0.012) X10*3/uL Nucleated RBC % (auto) 0.0 (0.0-0.2) /100WBC PT (10.0-13.1) SEC INR (0.9-1.1) Sodium (135-145) mmol/L Potassium (3.3-5.1) mmol/L Chloride (96-108) mmol/L Carbon Dioxide (22-29) mmol/L Anion Gap (12-20) BUN (9-16) mg/dL Creatinine (0.5-1.4) mg/dL Estim Creat Clear Calc Estimated GFR Random Glucose (60-115) mg/dL Calcium (8.4-10.2) mg/dL Magnesium (1.6-2.6) mg/dL Total Bilirubin (0.0-1.0) mg/dL AST (5-37) U/L ALT (0-40) U/L Alkaline Phosphatase (39-117) U/L Total Protein (6.5-8.0) g/dL Albumin (3.5-5.0) g/dL Urine Color Yellow Urine Appearance Clear Urine pH 5.0 (5.0-9.0) Ur Specific [place] 1.025 (1.005-1.025) Urine Protein 30 (1+) H (Neg-Trace) mg/dL Urine Glucose (UA) Negative (Negative) mg/dL Urine Ketones 15 (Negative) mg/dL Urine Blood Negative (Negative) Urine Nitrite Negative (Negative) Ur Leukocyte Esterase Negative (Negative) Urine RBC 0-2 (0-2) /HPF Urine WBC 0-5 (0-5) /HPF Ur Squamous Epith Cells 0-2 (0-2) /HPF Urine Bacteria None Seen (None Seen) Hyaline Casts 3-5 (0-2) /LPF Influenza Type A (PCR) NEGATIVE (Negative) Influenza Type B (PCR) NEGATIVE (Negative) RSV RNA Qual (PCR) NEGATIVE (Negative) SARS-CoV-2 RNA (RT-PCR) NEGATIVE (Negative) 04/09/22 04/09/22 Range/Units 20:45 20:45 WBC (4.8-10.8) X10*3/uL RBC (4.60-5.80) X10*6/uL Hgb (14.0-18.0) g/dl Hct (42.0-52.0) % MCV (80.0-98.0) fL MCH (27.0-33.0) pg MCHC (31.0-36.0) g/dl RDW (11.0-16.0) % Plt Count (160-400) X10*3/uL MPV (9.4-12.4) fL Immature Gran % (Auto) (0.0-0.4) % Neut % (Auto) (45-73) % Lymph % (Auto) (20-40) % [place] % (Auto) (2-11) % Eos % (Auto) (0-4) % Baso % (Auto) (0-2) % Lymph # (Auto) (1.2-4.9) X10*3/uL [place] # (Auto) (0.1-1.2) X10*3/uL Eos # (Auto) (0.0-0.4) X10*3/uL Baso # (Auto) (0.0-0.2) X10*3/uL Abs Immat Gran (auto) (0.00-0.03) X10*3/uL Absolute Neuts (auto) (2.0-8.3) x10*3/uL Absolute Nucleated RBC (0.0-0.012) X10*3/uL Nucleated RBC % (auto) (0.0-0.2) /100WBC PT 12.9 (10.0-13.1) SEC INR 1.1 (0.9-1.1) Sodium 137 (135-145) mmol/L Potassium 5.1 (3.3-5.1) mmol/L Chloride 101 (96-108) mmol/L Carbon Dioxide 23 (22-29) mmol/L Anion Gap 18 (12-20) BUN 27 H (9-16) mg/dL Creatinine 1.36 (0.5-1.4) mg/dL Estim Creat Clear Calc 49.1 Estimated GFR 52 Random Glucose 173 H (60-115) mg/dL Calcium 10.0 D (8.4-10.2) mg/dL Magnesium 2.0 (1.6-2.6) mg/dL Total Bilirubin 1.1 H (0.0-1.0) mg/dL AST 18 (5-37) U/L ALT 21 (0-40) U/L Alkaline Phosphatase 85 (39-117) U/L Total Protein 7.7 (6.5-8.0) g/dL Albumin 4.9 (3.5-5.0) g/dL Urine Color Urine Appearance Urine pH (5.0-9.0) Ur Specific [place] (1.005-1.025) Urine Protein (Neg-Trace) mg/dL Urine Glucose (UA) (Negative) mg/dL Urine Ketones (Negative) mg/dL Urine Blood (Negative) Urine Nitrite (Negative) Ur Leukocyte Esterase (Negative) Urine RBC (0-2) /HPF Urine WBC (0-5) /HPF Ur Squamous Epith Cells (0-2) /HPF Urine Bacteria (None Seen) Hyaline Casts (0-2) /LPF Influenza Type A (PCR) (Negative) Influenza Type B (PCR) (Negative) RSV RNA Qual (PCR) (Negative) SARS-CoV-2 RNA (RT-PCR) (Negative) <KOLBY Meza - Last Filed: 04/09/22 22:42> Radiology Impression Discussion of test interpretation with radiology: I have reviewed the radiologist's reading. <KOLBY Meza - Last Filed: 04/09/22 22:42> Radiologist Impression: EXAMINATION: CT ABDOMEN AND PELVIS WITHOUT CONTRAST CLINICAL INFORMATION: pt c abd pain right sided now going to left . COMPARISON: No pertinent prior studies are available for comparison. TECHNIQUE: Multidetector volumetric imaging was performed from the superior aspect of the liver through the pubic symphysis without contrast per renal stone protocol. Sagittal and coronal reformatted images were obtained on the technologist workstation. This CT examination was performed using dose optimization techniques as appropriate, variously including the following: *Automated exposure control *Adjustment of mA and/or kV according to patient size (this includes techniques or standardized protocols for targeted exams where dose is matched to indication/reason for exam; i.e. extremities or head) *Use of iterative reconstruction technique DLP: 515 mGy-cm. FINDINGS: LUNG BASES: The visualized lung bases are unremarkable. LIVER, GALLBLADDER, BILIARY TREE: The non-contrast liver is normal in size, shape, and attenuation. Low-attenuation probable cyst in the lateral segment 8 of the liver. No suspicious focal hepatic lesion or biliary ductal dilatation is present.? The gallbladder is unremarkable with no evidence of radiopaque gallstones, gallbladder wall thickening, or obvious pericholecystic inflammatory changes. PANCREAS: Unremarkable. SPLEEN: Unremarkable. ADRENAL GLANDS: Unremarkable. KIDNEYS AND URETERS: The kidneys are normal in size, shape, and attenuation. No hydronephrosis, hydroureter, or calculi seen. No perinephric stranding. BLADDER: Decompressed but otherwise unremarkable GASTROINTESTINAL TRACT: No colonic wall thickening or pericolonic inflammatory change. Colon is relatively redundant. Fluid-filled loops of mid-distal small bowel without discrete transition point extending to the fluid-filled cecum. I do not appreciate any significant perienteric inflammatory changes. Normal-appearing appendix in the right lower quadrant with no periappendiceal inflammatory change either. ABDOMINAL WALL: Tiny periumbilical fat-containing hernia LYMPHOVASCULAR STRUCTURES: Mild vascular calcification within the aorta iliac system.. PELVIC VISCERA: Unremarkable. OSSEUS STRUCTURES: Unremarkable. CT/CT abdomen pelvis wo IV con IMPRESSION: Fluid-filled loops of mid-distal small bowel extending to the cecum. I do not appreciate any discrete transition point or significant perienteric inflammatory changes. I do not appreciate any significant colonic wall thickening or pericolonic inflammatory change. No obstructive changes to the bowel. Dictated By: Enrique Larsen MD Signed By: Electronically signed by Enrique Larsen MD 04/09/222208 <KOLBY Meza - Last Filed: 04/09/22 22:42> Independent Historian Clinical information obtained from an independent historian. History obtained from or confirmed by: Spouse <KOLBY Meza Last Filed: 04/09/22 22:42> Chronic Conditions Patient?s care impacted by: Diabetes <KOLBY Meza - Last Filed: 04/09/22 22:42> Discharge Plan Discharge Clinical Impression: Nausea & vomiting <KOLBY Oliveira Last Filed: 04/09/22 20:28> Patient Disposition: Home, Self-Care <KOLBY Oliveira - Last Filed: 04/09/22 20:28> Instructions: Acute Nausea and Vomiting (ED) <KOLBY Oliveira Last Filed: 04/09/22 20:28> Additional Instructions: Follow up with your primary care provider. Return to the emergency department immediately if your symptoms worsen or if you develop any dizziness, shortness of breath, difficulty breathing, chest pain, blurry vision, loss of vision, nausea, vomiting, abdominal pain, fever, chills, back pain, or any other complaints. <KOLBY Oliveira Last Filed: 04/09/22 20:28> Prescriptions: New ondansetron 4 mg tablet,disintegrating 4 mg PO Q8H 3 Days Qty: 9 0RF No Action cholecalciferol (vitamin D3) 25 mcg (1,000 unit) capsule 25 mcg PO DAILY fexofenadine [Brooke Allergy] 180 mg tablet 180 mg PO DAILY PRN (Reason: allergy symptoms) FreeStyle Lite Strips Strip 1 strip miscellaneous TID Qty: 100 0RF lancets [FreeStyle Lancets] 28 gauge misc 28 gauge miscellaneous TID Qty: 100 12RF Januvia 100 mg tablet 100 mg PO DAILY 90 Days Qty: 90 1RF metformin 500 mg tablet extended release 24 hr 500 mg PO BID 90 Days Qty: 180 1RF atorvastatin 10 mg tablet 10 mg PO BEDTIME 90 Days Qty: 90 1RF lisinopril 20 mg tablet 20 mg PO DAILY 90 Days Qty: 90 1RF <KOLBY Oliveira - Last Filed: 04/09/22 20:28> Referrals: [facility] [Provider Group] (Call to establish and follow up with a GI specialist. ) Bimal Lepe MD [Primary Care Provider] - <KOLBY Oliveira - Last Filed: 04/09/22 20:28> Interventions: ED Discharge Assessment Last Done: 04/09/22 22:35 <KOLBY Oliveira - Last Filed: 04/09/22 20:28> Discharge Date/Time: 04/09/22 22:35 <KOLBY Oliveira - Last Filed: 04/09/22 20:28> Print Language: Tuvaluan <KOLBY Oliveira - Last Filed: 04/09/22 20:28>
[2022-04-09 20:25] VITALS: BP 145/77; PULSE 93; RESP 18; TEMP 37.1; O2SAT 95; BMI 28.3
[2022-04-09 20:40] LABS: Appearance Urine Clear; Color Urine Yellow; Glucose Urine UA Negative (Negative); Leukocyte Esterase Urine Negative (Negative); Nitrite Urine Negative (Negative); Specific Gravity - Urine 1.025 (1.005-1.025); UMIC TRIGGER UACC YES; Urine Blood Negative (Negative); Urine Ketones 15 mg/dL (Negative); Urine Protein 30 (1+) mg/dL (Neg-Trace)
[2022-04-09 20:42] LABS: Bacteria Urine None Seen (None Seen); RBC Urine 0-2 /HPF (0-2); Squamous Epithelial Cell Urine 0-2 /HPF (0-2); WBC Urine 0-5 /HPF (0-5)
[2022-04-09 20:49] LABS: MANUAL DIFF FLAG NO
[2022-04-09 20:51] LABS: Basophils Percent Auto 0.3 % (0-2); Eosinophils Percent Auto 0.2 % (0-4); Hemoglobin 15.2 g/dl (14.0-18.0); Imm Gran Abs Auto 0.02 X10*3/uL (0.00-0.03); Imm Gran Pct Auto 0.2 % (0.0-0.4); Lymphocytes Absolute Auto 0.9 X10*3/uL (1.2-4.9); Lymphocytes Percent Auto 7.5 % (20-40); Mean Corpuscular HGB Conc 32.3 g/dl (31.0-36.0); Mean Corpuscular Hemoglobin 26.1 pg (27.0-33.0); Mean Corpuscular Volume 80.8 fL (80.0-98.0); Mean Platelet Volume 10.4 fL (9.4-12.4); Monocytes Absolute Auto 1.5 X10*3/uL (0.1-1.2); Monocytes Percent Auto 12.3 % (2-11); Neutrophils Absolute Auto 9.7 x10*3/uL (2.0-8.3); Neutrophils Percent Auto 79.5 % (45-73); Platelet Count 221 X10*3/uL (160-400); Red Blood Count 5.82 X10*6/uL (4.60-5.80); White Blood Count 12.2 X10*3/uL (4.8-10.8)
[2022-04-09 20:56] LABS: INTERNATIONAL NORM RATIO 1.1 (0.9-1.1); Prothrombin Time 12.9 SEC (10.0-13.1)
[2022-04-09 21:10] LABS: Alanine Aminotransferase 21 U/L (0-40); Albumin Level 4.9 g/dL (3.5-5.0); Alkaline Phosphatase 85 U/L (39-117); Anion Gap 18 (12-20); Aspartate Amino Transferase 18 U/L (5-37); Bilirubin Total 1.1 mg/dL (0.0-1.0); Blood Urea Nitrogen 27 mg/dL (9-16); Carbon Dioxide 23 mmol/L (22-29); Chloride 101 mmol/L (96-108); Creatinine Clr Calc Pharmacy 49.1; Estimated Glomerular Filt Rate 52; Glucose Random 173 mg/dL (60-115); Potassium 5.1 mmol/L (3.3-5.1); Sodium 137 mmol/L (135-145); Total Protein 7.7 g/dL (6.5-8.0)
[2022-04-09 21:16] LABS: Influenza A PCR NEGATIVE (Negative); Influenza B PCR NEGATIVE (Negative); Resp Syncy Virus RNA Qual PCR NEGATIVE (Negative); SARS COV2 PCR INHOUSE NEGATIVE (Negative)
--- OUTSIDE RECORDS SUMMARY | 2022-04-09 21:49 | XMS_ITS | Continuity of Care Document ---
:1950 Author Organization [facility] Address [address] [place] [id number]- Care Team Providers Name Role Phone Bimal Lepe MD Primary Care Physician Encounter [facility] [place] Date(s): 07/19/21 - 07/19/[address] [id number]- Encounter Diagnosis Non-cardiac syncope (Final) - 07/19/21 Dehydration (Final) - 07/19/21 Discharge Disposition: A-D/C Home Attending Physician: Mac Looney MD Admitting Physician: Mac Looney MD Referring Physician: Not on Staff, Referring MD Allergies, Adverse Reactions, Alerts No Known Allergies Immunizations Given and Recorded Vaccine Date Status Refusal Reason SARS-CoV-2 (COVID-19) mRNA BNT-162b2 vac 08/05/20 Given SARS-CoV-2 (COVID-19) mRNA BNT-162b2 vac 07/15/20 Given Vital Signs Most recent to oldest 1 2 3 [Reference Range]: Oxygen Saturation [94-100 %] 100 % 100 % 97 % (07/19/21 5:52 PM) (07/19/21 4:45 PM) (07/19/21 3:0 5 PM) Pulse Rate [55-90 bpm] 69 bpm 66 bpm 72 bpm (07/19/21 5:52 PM) (07/19/21 4:45 PM) (07/19/21 3:0 5 PM) Blood Pressure [90-138/55-84 mm 122/69 mm Hg 108/65 mm Hg 91/56 mm Hg Hg] (07/19/21 5:52 PM) (07/19/21 4:45 PM) (07/19/21 3:0 5 PM) Respiratory Rate [16-30 br/min] 16 br/min 20 br/min 18 br/min (07/19/21 5:52 PM) (07/19/21 4:45 PM) (07/19/21 3:0 5 PM) Temperature [96.8-100.4 DegF] 97.7 DegF 98.1 DegF 98 .0 DegF (07/19/21 5:52 PM) (07/19/21 4:45 PM) (07/19/21 3:0 5 PM) Mode of Delivery (Oxygen) Room air Room air Room a ir (07/19/21 5:52 PM) (07/19/21 4:45 PM) (07/19/21 3:0 5 PM) Blood pressure sites Arm, right Arm, right (07/19/21 5:52 PM) (07/19/21 4:45 PM) Temperature Route Oral Oral Oral (07/19/21 5:52 PM) (07/19/21 4:45 PM) (07/19/21 3:0 5 PM)
== END 2022-04-09 22:35 | disposition home or self-care (01) ==
PROVIDERS: Physician Assistant Medical; Emergency Provider Student in an Organized Health Care Education/Training Program; PCP Internal Medicine
DX: R11.2 Nausea with vomiting, unspecified (principal); R10.30 Lower abdominal pain, unspecified; Z20.822 Contact with and (suspected) exposure to COVID-19; E11.9 Type 2 diabetes mellitus without complications; I10 Essential (primary) hypertension; E78.00 Pure hypercholesterolemia, unspecified; Z79.84 Long term (current) use of oral hypoglycemic drugs; Z79.02 Long term (current) use of antithrombotics/antiplatelets; Z79.899 Other long term (current) drug therapy
CPT/HCPCS: 0241U; 36415; 74176; 80053; 81001; 83735; 85025; 85610; 99282; 99284

== ENCOUNTER 2022-04-20 06:29 | Outpatient (REF) | payer OTHER, MEDICARE, SELFPAY ==
[2022-04-20 07:34] LABS: Estimated Average Glucose 143 mg/dL; Hemoglobin A1c % 6.6 %
[2022-04-20 08:17] LABS: Alanine Aminotransferase 35 U/L (0-40); Alkaline Phosphatase 64 U/L (39-117); Anion Gap 13 (12-20); Aspartate Amino Transferase 18 U/L (5-37); Bilirubin Total 0.4 mg/dL (0.0-1.0); Blood Urea Nitrogen 18 mg/dL (9-16); Calcium 9.1 mg/dL (8.4-10.2); Carbon Dioxide 26 mmol/L (22-29); Chloride 105 mmol/L (96-108); Cholesterol 86 mg/dL; Estimated Glomerular Filt Rate > 60; Glucose Fasting 148 mg/dL (60-99); HDL Cholesterol 27 mg/dL; LDL Cholesterol Calculated 45 mg/dl; Potassium 4.7 mmol/L (3.3-5.1); Sodium 139 mmol/L (135-145); Total Protein 6.2 g/dL (6.5-8.0); Triglycerides 72 mg/dL; Vitamin D 25-OH Total 45.5 ng/mL (>30)
[2022-04-20 09:16] LABS: Appearance Urine Clear; Color Urine Yellow; Glucose Urine UA Negative (Negative); Leukocyte Esterase Urine Negative (Negative); Nitrite Urine Negative (Negative); PH 5.5 (5.0-9.0); Specific Gravity - Urine 1.025 (1.005-1.025); Urine Blood Negative (Negative); Urine Ketones Negative (Negative); Urine Protein Negative (Neg-Trace)
[2022-04-20 09:36] LABS: Creatinine Urine 192.79 mg/dL; Microalbum/Creatinine Ratio Ur 8.8 ug/mg cr
== END 2022-04-20 06:30 | disposition home or self-care (01) ==
LOC: HO.LAB 06:29
PROVIDERS: PCP Internal Medicine; Visit Provider Internal Medicine
DX: E11.9 Type 2 diabetes mellitus without complications (principal); I10 Essential (primary) hypertension; E55.9 Vitamin D deficiency, unspecified; E78.00 Pure hypercholesterolemia, unspecified
CPT/HCPCS: 36415; 80053; 80061; 81003; 82043; 82306; 83036

== ENCOUNTER 2022-04-23 16:40 | Outpatient (REF) | payer OTHER, MEDICARE, SELFPAY ==
[2022-04-23 16:56] LABS: MANUAL DIFF FLAG NO
[2022-04-23 17:17] LABS: Basophils Percent Auto 0.3 % (0-2); Eosinophils Percent Auto 0.4 % (0-4); Hematocrit 42.4 % (42.0-52.0); Hemoglobin 13.9 g/dl (14.0-18.0); Imm Gran Abs Auto 0.04 X10*3/uL (0.00-0.03); Imm Gran Pct Auto 0.4 % (0.0-0.4); Mean Corpuscular HGB Conc 32.8 g/dl (31.0-36.0); Mean Corpuscular Hemoglobin 26.2 pg (27.0-33.0); Mean Platelet Volume 9.8 fL (9.4-12.4); Monocytes Absolute Auto 1.1 X10*3/uL (0.1-1.2); Monocytes Percent Auto 10.6 % (2-11); Neutrophils Absolute Auto 7.9 x10*3/uL (2.0-8.3); Neutrophils Percent Auto 78.3 % (45-73); Platelet Count 241 X10*3/uL (160-400); Red Cell Distribution Width 12.7 % (11.0-16.0); White Blood Count 10.1 X10*3/uL (4.8-10.8)
[2022-04-23 17:44] LABS: Lipase 12 U/L (8-78)
== END 2022-04-23 16:41 | disposition home or self-care (01) ==
LOC: HO.LAB 16:40
PROVIDERS: PCP Internal Medicine; Visit Provider Internal Medicine
DX: R10.9 Unspecified abdominal pain (principal)
CPT/HCPCS: 36415; 83690; 85025

== ENCOUNTER 2022-04-26 12:47 | Inpatient (IN) | payer OTHER, MEDICARE, SELFPAY ==
--- NOTE | ~2022-04-26 | CT_ITS ---
EXAMINATION: CT ABDOMEN AND PELVIS WITHOUT CONTRAST CLINICAL INFORMATION: Mild obstruction. Persistent distended small bowel loops in spite of simple plate and Gastrografin enema. COMPARISON: CT abdomen pelvis 04/26/2022 TECHNIQUE: Multidetector volumetric imaging was performed from the superior aspect of the liver through the pubic symphysis. Sagittal and coronal reformatted images were obtained on the technologist's workstation. This CT examination was performed using dose optimization techniques as appropriate, variously including the following: *Automated exposure control *Adjustment of mA and/or kV according to patient size (this includes techniques or standardized protocols for targeted exams where dose is matched to indication/reason for exam; i.e. extremities or head) *Use of iterative reconstruction technique DLP: 496 mGy-cm FINDINGS: LUNG BASES: There is bibasilar and right middle lobe atelectasis/consolidation with small bilateral pleural effusions. Heart size is normal. Mild coronary artery calcifications are present. LIVER, GALLBLADDER, AND BILIARY TREE: The liver is normal in size, shape, and attenuation. There is a 1.4 cm cyst right hepatic lobe. The gallbladder is unremarkable with no evidence of radiopaque gallstones, gallbladder wall thickening, or obvious pericholecystic inflammatory changes. PANCREAS: Unremarkable. SPLEEN: Unremarkable. ADRENAL GLANDS: Unremarkable. KIDNEYS AND URETERS: The kidneys are normal in size, shape, and attenuation. No hydronephrosis, hydroureter, or calculi seen. No perinephric stranding. BLADDER: Unremarkable. GASTROINTESTINAL TRACT: Again visualized are contrast opacified nondilated transverse, descending and sigmoid colon with Gastrografin contrast from yesterday's barium enema exam. There is a mildly dilated ascending colon and small bowel loops without dilatation of the right colon is stable. There is no pneumatosis. Moderate stool seen in the distal ascending colon has improved or resolved. Multiple dilated small bowel loops are again seen with dilated oral contrast administered today with CT. Again there is no pneumatosis. No free air or free fluid. No obstructive lesion seen at the IC junction however no lesion or mass seen at IC Junction or internal ileum.. No fat stranding either. Appendix is not visualized. No free fluid or free air. ABDOMINAL WALL: No significant hernia is appreciated. LYMPH NODES: Normal. VASCULAR: Unremarkable. PELVIC VISCERA: No free fluid or free air seen. OSSEOUS STRUCTURES: No aggressive lytic or sclerotic process seen. CT/CT abdomen pelvis wo IV con IMPRESSION: 1. Multiple dilated small bowel loops with oral contrast administered today. There is no pneumatosis. No free air or free fluid seen. The dilated small bowel loops are unchanged compared 04/26/2022 2. There is no obstructive lesion seen at the IC junction or terminal ileum. 3. Mild dilated proximal ascending colon and cecum is stable. There is no pneumatosis. 4. There is bibasilar and right middle lobe atelectasis/consolidation with small bilateral pleural effusions, stable. Fleischner guidelines were followed.
--- NOTE | ~2022-04-26 | FL_ITS ---
EXAMINATION: XR BARIUM ENEMA CLINICAL INFORMATION: Distended small bowel loops and colon. Question obstruction. COMPARISON: None TECHNIQUE: KUB was obtained. Subsequently retrograde Gastrografin 50/50 dilution was inserted through a balloon inflated rectal tube FINDINGS: A single KUB obtained prior exam reveals NG tube within the body the stomach. There is a dilated small bowel loops and transverse colon. There is a passage of Gastrografin from the rectum, sigmoid, descending, transverse colon and the right hepatic flexure and the proximal ascending colon. Minimal contrast is seen within the proximal ascending colon. However patient started complaining of abdominal pain secondary to distention and the exam was terminated. No obstructing lesion, mass or stricture seen. There is contrast extravasation around the rectal tube surrounding the bed sheets and patient distress. FLUOROSCOPY TIME: 4.3 minutes DOSE AREA PRODUCT: 112 uGy-m2 (microgray-meter squared) FL/FL barium enema IMPRESSION: 1. There is contrast extravasation around the rectal tube surrounding the bed sheets and patient distress. 2. There is a dilated small bowel loops and transverse colon. There is no obstructing lesion or stricture seen. Distal ascending colon is patent. Contrast trickled into the proximal ascending colon.
--- NOTE | ~2022-04-26 | XR_ITS ---
EXAMINATION: XR CHEST CLINICAL INFORMATION: NG tube placement COMPARISON: Chest x-ray 04/26/2022 TECHNIQUE: Frontal portable view of the chest was obtained. 6:44 PM FINDINGS: Tubes and lines: 1. Nasogastric tube in stomach. Lung volume low. Linear atelectasis at right lung base with asymmetric elevation of right diaphragm above the left. No pulmonary vascular congestion. The cardiac and mediastinal contours are normal. XR/XR chest 1V IMPRESSION: 1. Nasogastric tube in stomach. 2. Low lung volume with linear atelectasis at right lung base.
--- NOTE | ~2022-04-26 | XR_ITS ---
EXAMINATION: XR chest 2V CLINICAL INFORMATION: Reason for Exam Abdominal pain/bloating COMPARISON: Prior chest x-ray 2007 TECHNIQUE: XR chest 2V Lungs and Shari: There is a platelike atelectasis is middle lobe. Mild atelectatic changes at left lung base. No radiographic evidence of acute infiltrates or failure. Pleura: Normal. Costophrenic angles are sharp. No pneumothorax. Heart: The heart is normal in size. Mediastinum: The mediastinum is within normal limits.. Bones: Skeletal structures included are normal for patient's age. XR/XR chest 2V IMPRESSION: * Platelike atelectasis middle lobe and mild atelectatic changes at left lung base. * No radiographic evidence of acute infiltrates or failure.
--- NOTE | ~2022-04-26 | CT_ITS ---
EXAMINATION: CT abdomen pelvis wo IV con CLINICAL INFORMATION: Abdominal pain, bloating COMPARISON: Prior CT 04/09/2022 TECHNIQUE: Multidetector volumetric imaging was performed from the superior aspect of the liver through the pubic symphysis 100 mL of Omnipaque 350 injected Sagittal and coronal reformatted images were obtained on the technologist's workstation. This CT examination was performed using dose optimization techniques as appropriate, variously including the following: *Automated exposure control *Adjustment of mA and/or kV according to patient size (this includes techniques or standardized protocols for targeted exams where dose is matched to indication/reason for exam; i.e. extremities or head) *Use of iterative reconstruction technique DLP: 554 mGy-cm FINDINGS: LOWER THORAX: There is a platelike atelectasis middle lobe, mild linear opacities likely scarring at lower lobes left more than right. HEPATOBILIARY: There is a cyst right lobe of the liver 1.4 cm liver otherwise homogeneous. GALLBLADDER: Gallbladder distended. SPLEEN: Spleen is normal in size. PANCREAS: No focal mass or ductal dilatation. STOMACH AND GASTROINTESTINAL TRACT: Stomach is distended fluid-filled. Redemonstration of diffuse small bowel dilatation, this has worsened since prior exam, more dilatation of small bowel loops measuring up to 7.1 cm, this dilatation extends all the way to the cecum, there is evidence of submucosal pneumatosis raising concern for bowel ischemia. The entire colon is nondistended there is a stool in the cecum, transition at the level of the ileocecal junction. No CT evidence of appendicitis. ADRENALS: No adrenal nodules. KIDNEYS/URETERS: No hydronephrosis, stones or solid mass lesions. URINARY BLADDER: Partially decompressed. PELVIC VISCERA: There is no free air or fluid. PERITONEUM: No free air or fluid. LYMPH NODES: No lymphadenopathy. VASCULAR:Abdominal aorta normal in size, no aneurysm found. BONES, ABDOMINAL WALL AND SOFT TISSUES: Age-appropriate changes of the spine and skeletal system, no destructive osteolytic or osteosclerotic bone lesion found CT/CT abdomen pelvis wo IV con IMPRESSION: *Worsening small bowel dilatation, more dilated small bowel loops measuring up to 7.1 cm, there is submucosal air suggesting pneumatosis intestinalis, raising concern for bowel ischemia. Surgical evaluation warranted. * Dilated bowel loops with Transition at the level of the ileocecal junction. * No free air or fluid. * Other noncritical findings as above. (Referring physician staff is being called, to be alerted of the above findings and recommendations.) kp
[2022-04-26 14:25] VITALS: BP 142/85; PULSE 108; RESP 18; TEMP 36.6; O2SAT 96; BMI 28.1
--- NOTE | 2022-04-26 14:25 | ED.ABDPAIN ---
HPI - Abdominal Pain General Chief Complaint: Abdominal Pain <KOLBY Oliveira - Last Filed: 04/26/22 14:30> Stated Complaint: severe abd pain <KOLBY Oliveira Last Filed: 04/26/22 14:30> Time Seen by Provider: 04/26/22 16:06 <KOLBY Oliveira - Last Filed: 04/26/22 14:30> Source: patient and family <KOLBY Alford - Last Filed: 04/26/22 18:04> Mode of arrival: ambulatory <KOLBY Alford - Last Filed: 04/26/22 18:04> Limitations: no limitations <KOLBY Alford Last Filed: 04/26/22 18:04> History of Present Illness HPI narrative: This is a 71-year-old male history of diabetes, hypertension, cervical radiculopathy, hypercholesterolemia presenting to the emergency department with abdominal pain and distension progressively worsening since 04/09/2022. Patient tells me he feels like his abdomen is distended, diffusely tender, he tells me he feels like he is . Tells me he is not been pooping, last bowel movement was 4 days ago. He tells me this is not normal for him. He rates his pain a 12/10. Reports intermittent nausea,vomiting. Denies chills, chest pain, shortness of breath, fevers, headache, vision changes, dizziness. <KOLBY Alford - Last Filed: 04/26/22 18:04> Related Data Home Medications: Home Medications Medication Instructions Recorded Confirmed cholecalciferol (vitamin D3) 25 25 mcg PO DAILY 03/10/20 04/25/22 mcg (1,000 unit) capsule fexofenadine 180 mg tablet 180 mg PO DAILY PRN allergy 03/10/20 04/25/22 (Brooke Allergy) symptoms Previous Rx's Medication Instructions Recorded blood sugar diagnostic (FreeStyle 1 strip miscellaneous TID #100 02/11/21 Lite Strips) strips lancets 28 gauge (FreeStyle 28 gauge miscellaneous TID for 10/27/21 Lancets) diabetes mellitus #100 ea sitagliptin phosphate 100 mg 100 mg PO DAILY 90 days #90 tabs 10/27/21 tablet (Januvia) metformin 500 mg tablet,extended 500 mg PO BID 90 days #180 tabs 11/02/21 release 24 hr atorvastatin 10 mg tablet 10 mg PO BEDTIME 90 days #90 tabs 02/03/22 lisinopril 20 mg tablet 20 mg PO DAILY 90 days #90 tabs 02/03/22 ondansetron 4 mg disintegrating 4 mg PO Q8H 3 days #9 tabs 04/09/22 tablet famotidine 40 mg tablet 40 mg PO BID 10 days #20 tabs 04/23/22 pantoprazole 40 mg tablet,delayed 40 mg PO DAILY 30 days #30 tabs 04/23/22 release sucralfate 1 gram tablet (Carafate) 1 g PO BID 10 days #20 tabs 04/23/22 <KOLBY Oliveira - Last Filed: 04/26/22 14:30> Allergies/Adverse Reactions: Allergies Allergy/AdvReac Type Severity Reaction Status Date / Time No Known Allergies Allergy Verified 04/25/22 17:01 [No Known Allergies*] <KOLBY Oliveira - Last Filed: 04/26/22 14:30> Review of Systems Review of Systems Constitutional : No Weight loss, No Fever, No Chills, No Fatigue, No Malaise ENT/Mouth : No sore throat, No Rhinorrhea Eyes: No Eye Pain, No Swelling, No Redness Cardiovascular : No Chest Pain, No SOB, No Dyspnea on Exertion, No Orthopnea, No Edema, No Palpitations Respiratory : No Cough, No Sputum, No Wheezing Gastrointestinal : + Nausea, + Vomiting, No Diarrhea, No Constipation, + abdominal Pain, No Hematochezia, No Melena Genitourinary : No Dysuria, No Urinary Frequency, No Hematuria, Musculoskeletal : No joint pain, No Myalgias, No Joint Swelling Skin : No Skin Lesions, No rash Neuro : No Weakness, No Numbness, No Dizziness, No Headache Psych : No Anxiety/Panic, No Depression All other systems reviewed and are negative <KOLBY Alford Last Filed: 04/26/22 18:04> Yes all other systems are reviewed and are negative <KOLBY Alford Last Filed: 04/26/22 18:04> [facility] Past Medical History Attestation statement: The following information was validated with the patient. <KOLBY Alford - Last Filed: 04/26/22 18:04> Source: old records reviewed and nursing notes reviewed <KOLBY Alford - Last Filed: 04/26/22 18:04> Medical History: Medical History Benign essential hypertension Diabetes mellitus Overweight (BMI 25.0-29.9) Pure hypercholesterolemia Syncope Vitamin D deficiency <KOLBY Oliveira - Last Filed: 04/26/22 14:30> Surgical History: Surgical History History of colonoscopy <KOLBY Oliveira - Last Filed: 04/26/22 14:30> Family History Family History: Family History Father Hypertension Diabetes Mother Diabetes Hypertension <KOLBY Oliveira - Last Filed: 04/26/22 14:30> Social History Social History: Social History Housing: House Alcohol intake: never Patient Tobacco Use Status: Never used Tobacco e-Cigarette/Vaping Use: Never Used Second Hand Smoke Exposure: Yes Advance Directives: Yes Advance Directives on File: Yes Advance Directives Date on File: 12/24/21 service: No Current occupational status: retired Cognitive needs: No Hearing needs: No Vision needs: Yes <KOLBY Oliveira - Last Filed: 04/26/22 14:30> Physical Exam ED Vital Signs: Vital Signs - 24 hr 04/26/22 14:25 04/26/22 15:34 Temperature 98 F 98.4 F Pulse Rate 108 H 93 Respiratory Rate 18 18 Blood Pressure 142/85 H 147/80 H Pulse Oximetry 96 94 Oxygen Delivery Method Room Air Room Air BMI result Body Mass Index 28.1 <KOLBY Oliveira - Last Filed: 04/26/22 14:30> Vital Signs - 24 hr 04/26/22 14:25 04/26/22 15:34 Temperature 98 F 98.4 F Pulse Rate 108 H 93 Respiratory Rate 18 18 Blood Pressure 142/85 H 147/80 H Pulse Oximetry 96 94 Oxygen Delivery Method Room Air Room Air BMI result Body Mass Index 28.1 vss <KOLBY Alford - Last Filed: 04/26/22 18:04> Appearance: Alert.? Oriented X3.? No acute distress.? Head: Normocephalic, atraumatic, no step-offs or deformities Eyes: Pupils equal, round and reactive to light.? ENT: Pharynx normal.? Neck: Normal inspection.? Neck supple.? CVS: Normal heart rate and rhythm.? Pulses normal.? Respiratory: No respiratory distress.? Breath sounds normal.? Abdomen: Soft + distended, hypoactive bowel sounds throughout. Diffusley tender. Skin: Skin warm and dry.? Normal skin color.? Normal skin turgor.? Extremities: No lower extremity edema.? No calf ttp. 5/5 strength to bilateral upper and lower extremities Neuro: Oriented X 3.? No motor deficit.? No sensory deficit. CN 2-12 intact <KOLBY Alford - Last Filed: 04/26/22 18:04> Course Course Course Narrative: RMSharif-14:25PM - 71yoM presenting to the the ED c c/o mid to lower abd pain since the 09 of April. He was seen here and had labs and imaging and told that everything was normal and sent home with [facility]. He reports his blood sugar was 200 last night. Feels like he is bloated. He had some vomiting. Reports was his last bowel movement which was small amount. Plan: At this time labs, chest x-ray, COVID/RSV/flu swab and a CT scan of abdomen pelvis ordered. Patient will be sent to the waiting room to be evaluated in the ED. <KOLBY Oliveira - Last Filed: 04/26/22 14:30> Reevaluation(s) Reevaluation #1: CBC with slight leukocytosis 12.9, neutrophilic predominance. Chemistry with no acute electrolyte abnormalities requiring intervention. Coags INR 16.1, PT 1.4 . Flu/COVID/RSV negative. X-ray of the chest with platelike atelectasis to the middle lobe and mid atelectatic changes at the left lung base. UA, CT of the abdomen pelvis pending. <KOLBY Alford - Last Filed: 04/26/22 18:04> Time: 16:27 <KOLBY Alford - Last Filed: 04/26/22 18:04> Reevaluation #2: CT of the abdomen and pelvis with worsening small-bowel dilation more dilated small-bowel loops measuring up to 7.1 cm there is submucosal air concerning for pneumatosis intestinalis concerning for bowel ischemia. I did reach out to the on-call surgeon who will come evaluate patient. <KOLBY Alford - Last Filed: 04/26/22 18:04> Time: 17:22 <KOLBY Alford - Last Filed: 04/26/22 18:04> Reevaluation #3: Surgery Dr. Wolf recommend NGT now, they will order enema, and admit patient. <KOLBY Alford - Last Filed: 04/26/22 18:04> Time: 17:46 <KOLBY Alford - Last Filed: 04/26/22 18:04> Additional Reevaluation(s): 1802 Lactic within normal limits, inflammatory markers elevated. <KOLBY Alford - Last Filed: 04/26/22 18:04> Medical Decision Making Medical Decision Making [facility] Narrative: 1623 71-year-old male presents with abdominal pain, distension, constipation worsening of the past few days. Physical exam with distended, diffusely tender abdomen with hypo active bowel sounds throughout. Concerns for possible small-bowel obstruction, large bowel obstruction, ischemic bowel. Unlikely acute abdomen. Plan at this time labs, imaging, urine <KOLBY Alford - Last Filed: 04/26/22 18:04> Differential Diagnosis Differential Diagnoses: The differential diagnosis associated with the presentation includes <KOLBY Alford - Last Filed: 04/26/22 18:04> Likely constipation versus small-bowel obstruction. Unlikely large bowel obstruction, acute abdomen, cholecystitis, appendicitis, pancreatitis <KOLBY Alford - Last Filed: 04/26/22 18:04> Admission/Observation Consideration of admission/observation: Escalation of care including admission/observation considered <KOLBY Alford - Last Filed: 04/26/22 18:04> Lab Data MDM Lab Attestation statement: I reviewed the patient's lab results. <KOLBY Alford - Last Filed: 04/26/22 18:04> I attest that I reviewed patient's laboratory studies. <KOLBY Alford - Last Filed: 04/26/22 18:04> Result Diagrams: : 04/26/22 14:36 04/26/22 14:36 <KOLBY Oliveira - Last Filed: 04/26/22 14:30> Labs: Lab Results 04/26/22 04/26/22 04/26/22 Range/Units 14:36 14:36 14:36 WBC 12.9 H (4.8-10.8) X10*3/uL RBC 5.62 (4.60-5.80) X10*6/uL Hgb 14.6 (14.0-18.0) g/dl Hct 44.7 (42.0-52.0) % MCV 79.5 L (80.0-98.0) fL MCH 26.0 L (27.0-33.0) pg MCHC 32.7 (31.0-36.0) g/dl RDW 12.9 (11.0-16.0) % Plt Count 275 (160-400) X10*3/uL MPV 9.8 (9.4-12.4) fL Immature Gran % (Auto) 0.2 (0.0-0.4) % Neut % (Auto) 80.5 H (45-73) % Lymph % (Auto) 7.6 L (20-40) % [place] % (Auto) 11.4 H (2-11) % Eos % (Auto) 0.1 (0-4) % Baso % (Auto) 0.2 (0-2) % Lymph # (Auto) 1.0 L (1.2-4.9) X10*3/uL [place] # (Auto) 1.5 H (0.1-1.2) X10*3/uL Eos # (Auto) 0.0 (0.0-0.4) X10*3/uL Baso # (Auto) 0.0 (0.0-0.2) X10*3/uL Abs Immat Gran (auto) 0.03 (0.00-0.03) X10*3/uL Absolute Neuts (auto) 10.3 H (2.0-8.3) x10*3/uL Absolute Nucleated RBC 0.000 (0.0-0.012) X10*3/uL Nucleated RBC % (auto) 0.0 (0.0-0.2) /100WBC PT 16.1 H (10.0-13.1) SEC INR 1.4 H (0.9-1.1) Sodium 139 (135-145) mmol/L Potassium 4.0 (3.3-5.1) mmol/L Chloride 98 (96-108) mmol/L Carbon Dioxide 28 (22-29) mmol/L Anion Gap 17 (12-20) BUN 30 H (9-16) mg/dL Creatinine 1.19 (0.5-1.4) mg/dL Estim Creat Clear Calc 54.0 Estimated GFR > 60 Random Glucose 195 H (60-115) mg/dL Lactic Acid (0.5-2.0) mmol/L Calcium 9.2 (8.4-10.2) mg/dL Magnesium 2.5 (1.6-2.6) mg/dL Total Bilirubin 0.8 (0.0-1.0) mg/dL AST 17 (5-37) U/L ALT 40 (0-40) U/L Alkaline Phosphatase 83 (39-117) U/L C-Reactive Protein (< or = 0.50) mg/dL Total Protein 6.9 (6.5-8.0) g/dL Albumin 4.3 (3.5-5.0) g/dL Lipase 10 (8-78) U/L Influenza Type A (PCR) (Negative) Influenza Type B (PCR) (Negative) RSV RNA Qual (PCR) (Negative) SARS-CoV-2 RNA (RT-PCR) (Negative) 04/26/22 04/26/22 04/26/22 Range/Units 14:36 17:22 17:22 WBC (4.8-10.8) X10*3/uL RBC (4.60-5.80) X10*6/uL Hgb (14.0-18.0) g/dl Hct (42.0-52.0) % MCV (80.0-98.0) fL MCH (27.0-33.0) pg MCHC (31.0-36.0) g/dl RDW (11.0-16.0) % Plt Count (160-400) X10*3/uL MPV (9.4-12.4) fL Immature Gran % (Auto) (0.0-0.4) % Neut % (Auto) (45-73) % Lymph % (Auto) (20-40) % [place] % (Auto) (2-11) % Eos % (Auto) (0-4) % Baso % (Auto) (0-2) % Lymph # (Auto) (1.2-4.9) X10*3/uL [place] # (Auto) (0.1-1.2) X10*3/uL Eos # (Auto) (0.0-0.4) X10*3/uL Baso # (Auto) (0.0-0.2) X10*3/uL Abs Immat Gran (auto) (0.00-0.03) X10*3/uL Absolute Neuts (auto) (2.0-8.3) x10*3/uL Absolute Nucleated RBC (0.0-0.012) X10*3/uL Nucleated RBC % (auto) (0.0-0.2) /100WBC PT (10.0-13.1) SEC INR (0.9-1.1) Sodium (135-145) mmol/L Potassium (3.3-5.1) mmol/L Chloride (96-108) mmol/L Carbon Dioxide (22-29) mmol/L Anion Gap (12-20) BUN (9-16) mg/dL Creatinine (0.5-1.4) mg/dL Estim Creat Clear Calc Estimated GFR Random Glucose (60-115) mg/dL Lactic Acid 1.2 (0.5-2.0) mmol/L Calcium (8.4-10.2) mg/dL Magnesium (1.6-2.6) mg/dL Total Bilirubin (0.0-1.0) mg/dL AST (5-37) U/L ALT (0-40) U/L Alkaline Phosphatase (39-117) U/L C-Reactive Protein 14.91 H (< or = 0.50) mg/dL Total Protein (6.5-8.0) g/dL Albumin (3.5-5.0) g/dL Lipase (8-78) U/L Influenza Type A (PCR) NEGATIVE (Negative) Influenza Type B (PCR) NEGATIVE (Negative) RSV RNA Qual (PCR) NEGATIVE (Negative) SARS-CoV-2 RNA (RT-PCR) NEGATIVE (Negative) <KOLBY Oliveira - Last Filed: 04/26/22 14:30> Lab Results 04/26/22 04/26/22 04/26/22 Range/Units 14:36 14:36 14:36 WBC 12.9 H (4.8-10.8) X10*3/uL RBC 5.62 (4.60-5.80) X10*6/uL Hgb 14.6 (14.0-18.0) g/dl Hct 44.7 (42.0-52.0) % MCV 79.5 L (80.0-98.0) fL MCH 26.0 L (27.0-33.0) pg MCHC 32.7 (31.0-36.0) g/dl RDW 12.9 (11.0-16.0) % Plt Count 275 (160-400) X10*3/uL MPV 9.8 (9.4-12.4) fL Immature Gran % (Auto) 0.2 (0.0-0.4) % Neut % (Auto) 80.5 H (45-73) % Lymph % (Auto) 7.6 L (20-40) % [place] % (Auto) 11.4 H (2-11) % Eos % (Auto) 0.1 (0-4) % Baso % (Auto) 0.2 (0-2) % Lymph # (Auto) 1.0 L (1.2-4.9) X10*3/uL [place] # (Auto) 1.5 H (0.1-1.2) X10*3/uL Eos # (Auto) 0.0 (0.0-0.4) X10*3/uL Baso # (Auto) 0.0 (0.0-0.2) X10*3/uL Abs Immat Gran (auto) 0.03 (0.00-0.03) X10*3/uL Absolute Neuts (auto) 10.3 H (2.0-8.3) x10*3/uL Absolute Nucleated RBC 0.000 (0.0-0.012) X10*3/uL Nucleated RBC % (auto) 0.0 (0.0-0.2) /100WBC PT 16.1 H (10.0-13.1) SEC INR 1.4 H (0.9-1.1) Sodium 139 (135-145) mmol/L Potassium 4.0 (3.3-5.1) mmol/L Chloride 98 (96-108) mmol/L Carbon Dioxide 28 (22-29) mmol/L Anion Gap 17 (12-20) BUN 30 H (9-16) mg/dL Creatinine 1.19 (0.5-1.4) mg/dL Estim Creat Clear Calc 54.0 Estimated GFR > 60 Random Glucose 195 H (60-115) mg/dL Lactic Acid (0.5-2.0) mmol/L Calcium 9.2 (8.4-10.2) mg/dL Magnesium 2.5 (1.6-2.6) mg/dL Total Bilirubin 0.8 (0.0-1.0) mg/dL AST 17 (5-37) U/L ALT 40 (0-40) U/L Alkaline Phosphatase 83 (39-117) U/L C-Reactive Protein (< or = 0.50) mg/dL Total Protein 6.9 (6.5-8.0) g/dL Albumin 4.3 (3.5-5.0) g/dL Lipase 10 (8-78) U/L Influenza Type A (PCR) (Negative) Influenza Type B (PCR) (Negative) RSV RNA Qual (PCR) (Negative) SARS-CoV-2 RNA (RT-PCR) (Negative) 04/26/22 04/26/22 04/26/22 Range/Units 14:36 17:22 17:22 WBC (4.8-10.8) X10*3/uL RBC (4.60-5.80) X10*6/uL Hgb (14.0-18.0) g/dl Hct (42.0-52.0) % MCV (80.0-98.0) fL MCH (27.0-33.0) pg MCHC (31.0-36.0) g/dl RDW (11.0-16.0) % Plt Count (160-400) X10*3/uL MPV (9.4-12.4) fL Immature Gran % (Auto) (0.0-0.4) % Neut % (Auto) (45-73) % Lymph % (Auto) (20-40) % [place] % (Auto) (2-11) % Eos % (Auto) (0-4) % Baso % (Auto) (0-2) % Lymph # (Auto) (1.2-4.9) X10*3/uL [place] # (Auto) (0.1-1.2) X10*3/uL Eos # (Auto) (0.0-0.4) X10*3/uL Baso # (Auto) (0.0-0.2) X10*3/uL Abs Immat Gran (auto) (0.00-0.03) X10*3/uL Absolute Neuts (auto) (2.0-8.3) x10*3/uL Absolute Nucleated RBC (0.0-0.012) X10*3/uL Nucleated RBC % (auto) (0.0-0.2) /100WBC PT (10.0-13.1) SEC INR (0.9-1.1) Sodium (135-145) mmol/L Potassium (3.3-5.1) mmol/L Chloride (96-108) mmol/L Carbon Dioxide (22-29) mmol/L Anion Gap (12-20) BUN (9-16) mg/dL Creatinine (0.5-1.4) mg/dL Estim Creat Clear Calc Estimated GFR Random Glucose (60-115) mg/dL Lactic Acid 1.2 (0.5-2.0) mmol/L Calcium (8.4-10.2) mg/dL Magnesium (1.6-2.6) mg/dL Total Bilirubin (0.0-1.0) mg/dL AST (5-37) U/L ALT (0-40) U/L Alkaline Phosphatase (39-117) U/L C-Reactive Protein 14.91 H (< or = 0.50) mg/dL Total Protein (6.5-8.0) g/dL Albumin (3.5-5.0) g/dL Lipase (8-78) U/L Influenza Type A (PCR) NEGATIVE (Negative) Influenza Type B (PCR) NEGATIVE (Negative) RSV RNA Qual (PCR) NEGATIVE (Negative) SARS-CoV-2 RNA (RT-PCR) NEGATIVE (Negative) <KOLBY Alford - Last Filed: 04/26/22 18:04> Radiology Impression Discussion of test interpretation with radiology: I have reviewed the radiologist's reading. <KOLBY Alford - Last Filed: 04/26/22 18:04> Independent Historian Clinical information obtained from an independent historian. History obtained from or confirmed by: Other (Cells) <KOLBY Alford - Last Filed: 04/26/22 18:04> Chronic Conditions Patient?s care impacted by: Diabetes and Hypertension <KOLBY Alford - Last Filed: 04/26/22 18:04> Core Measures AMI core measures followed: Yes <KOLBY Alford - Last Filed: 04/26/22 18:04> Medications Administered Discontinued Medications Generic Name Dose Route Start Last Admin Trade Name Freq PRN Reason Stop Dose Admin Piperacillin Sod/Tazobactam 50 mls @ 100 mls/hr 04/26/22 17:15 04/26/22 17:34 Sod 3.375 gm/ Sodium Chloride IV 04/26/22 17:44 100 mls/hr ONCE ONE Administration <KOLBY Oliveira - Last Filed: 04/26/22 14:30> Medications Administered Discontinued Medications Generic Name Dose Route Start Last Admin Trade Name Freq PRN Reason Stop Dose Admin Piperacillin Sod/Tazobactam 50 mls @ 100 mls/hr 04/26/22 17:15 04/26/22 17:34 Sod 3.375 gm/ Sodium Chloride IV 04/26/22 17:44 100 mls/hr ONCE ONE Administration <KOLBY Alford Last Filed: 04/26/22 18:04> Critical Care Time Critical Care Time Critical Care Time: Yes <KOLBY Alford - Last Filed: 04/26/22 18:04> Total Critical Care Time: 40 <KOLBY Alford - Last Filed: 04/26/22 18:04> Attestation: I attest to this time spent taking care of the patient, obtaining history, physical, reviewing labs, imaging, speaking to my attending, speaking to specialist. <KOLBY Alford - Last Filed: 04/26/22 18:04> Discharge Plan Discharge Clinical Impression: Abdominal pain, Bowel obstruction <KOLBY Oliveira - Last Filed: 04/26/22 14:30> Patient Disposition: Admitted As Inpatient <KOLBY Oliveira - Last Filed: 04/26/22 14:30>
[2022-04-26 14:41] LABS: Basophils Percent Auto 0.2 % (0-2); Eosinophils Percent Auto 0.1 % (0-4); Hematocrit 44.7 % (42.0-52.0); Hemoglobin 14.6 g/dl (14.0-18.0); Imm Gran Abs Auto 0.03 X10*3/uL (0.00-0.03); Imm Gran Pct Auto 0.2 % (0.0-0.4); Lymphocytes Percent Auto 7.6 % (20-40); MANUAL DIFF FLAG NO; Mean Corpuscular HGB Conc 32.7 g/dl (31.0-36.0); Mean Corpuscular Volume 79.5 fL (80.0-98.0); Mean Platelet Volume 9.8 fL (9.4-12.4); Monocytes Absolute Auto 1.5 X10*3/uL (0.1-1.2); Monocytes Percent Auto 11.4 % (2-11); Neutrophils Absolute Auto 10.3 x10*3/uL (2.0-8.3); Neutrophils Percent Auto 80.5 % (45-73); Platelet Count 275 X10*3/uL (160-400); Red Blood Count 5.62 X10*6/uL (4.60-5.80); Red Cell Distribution Width 12.9 % (11.0-16.0); White Blood Count 12.9 X10*3/uL (4.8-10.8)
[2022-04-26 14:50] LABS: INTERNATIONAL NORM RATIO 1.4 (0.9-1.1); Prothrombin Time 16.1 SEC (10.0-13.1)
[2022-04-26 14:58] LABS: Alanine Aminotransferase 40 U/L (0-40); Albumin Level 4.3 g/dL (3.5-5.0); Alkaline Phosphatase 83 U/L (39-117); Anion Gap 17 (12-20); Aspartate Amino Transferase 17 U/L (5-37); Bilirubin Total 0.8 mg/dL (0.0-1.0); Blood Urea Nitrogen 30 mg/dL (9-16); Calcium 9.2 mg/dL (8.4-10.2); Carbon Dioxide 28 mmol/L (22-29); Chloride 98 mmol/L (96-108); Estimated Glomerular Filt Rate > 60; Glucose Random 195 mg/dL (60-115); Magnesium 2.5 mg/dL (1.6-2.6); Sodium 139 mmol/L (135-145); Total Protein 6.9 g/dL (6.5-8.0)
[2022-04-26 15:34] VITALS: BP 147/80; PULSE 93; RESP 18; TEMP 36.9; O2SAT 94
[2022-04-26 15:40] LABS: Influenza A PCR NEGATIVE (Negative); Influenza B PCR NEGATIVE (Negative); Resp Syncy Virus RNA Qual PCR NEGATIVE (Negative); SARS COV2 PCR INHOUSE NEGATIVE (Negative)
[2022-04-26 16:39] LABS: Lipase 10 U/L (8-78)
[2022-04-26] MEDS: Piperacillin Sodium/Tazobactam 3.375 GM in 0.9 % Sodium Chloride 50 ML IV (17:34)
[2022-04-26 17:46] LABS: Lactic Acid 1.2 mmol/L (0.5-2.0)
[2022-04-26 17:51] LABS: Appearance Urine Clear; Color Urine Dark Yellow; Glucose Urine UA Negative (Negative); Leukocyte Esterase Urine Negative (Negative); Nitrite Urine Negative (Negative); Specific Gravity - Urine >= 1.030 (1.005-1.025); UMIC TRIGGER UACC YES; Urine Blood Negative (Negative); Urine Ketones 15 mg/dL (Negative); Urine Protein 100 (2+) mg/dL (Neg-Trace)
[2022-04-26 17:54] LABS: C Reactive Protein 14.91 mg/dL (< or = 0.50)
--- NOTE | 2022-04-26 18:24 | PHA.MEDREC ---
Pharmacy Consult ? Medication Reconciliation Pharmacy has completed the medication reconciliation. Spoke to at bedside
[2022-04-26 18:34] VITALS: BP 180/88; PULSE 102; RESP 18; TEMP 36.4; O2SAT 93
[2022-04-26 18:37] LABS: Erythrocyte Sedimentation Rate 7 MM/HR (0-15)
--- NOTE | 2022-04-26 18:39 | PC.NURSE ---
Ng tube placed in the left nare. placed on low intermittent wall suction. patient tolerated ng tube well. placement checked with auscultation, will confirm with xray as well. family at the bedside. call uribe within reach
--- NOTE | 2022-04-26 19:07 | PM.HPGS ---
History of Present Illness History of Present Illness Date of Service: 04/26/22 Chief complaint: Abd pain Narrative: Evgeny Ag is a 71 year old male Who has been having abdominal pain since the middle of the month in March. He came to the emergency room mid March complaining of abdominal pain nausea vomiting and a CT scan done did not reveal any acute issues. His white count was slightly elevated. He was DC home and was a little bit better but went to see his primary care who wanted to do a little more testing. For the last day or 2 he has been feeling worse again. He has not had bowel movement he says for about 6 days has not really been passing gas. Has been very nauseated vomiting. His abdomen gets very distended and hard and painful. This happened again today and he has not been able to eat and drink very much over the last several days so he came to the emergency room. Here CT scan was carried out which showed significantly distended small bowel were so then to 3 weeks ago. There is a lot of stool in the cecum right colon the rest of the colon is decompressed. The patient says he has had a colonoscopy back in 2014 without any significant findings. He denies any family history of any colon cancer. He is retired but he does not have any other medical problems other than diabetes. He has been urinating well Review of Systems Review of Systems: Yes all other systems are reviewed and are negative PMF Past Medical History Medical History Benign essential hypertension Diabetes mellitus Overweight (BMI 25.0-29.9) Pure hypercholesterolemia Syncope Vitamin D deficiency Family History Family History Father Hypertension Diabetes Mother Diabetes Hypertension Surgical History Surgical History History of colonoscopy Social History Social History Housing: House Alcohol intake: never Patient Tobacco Use Status: Never used Tobacco e-Cigarette/Vaping Use: Never Used Second Hand Smoke Exposure: Yes Advance Directives: Yes Advance Directives on File: Yes Advance Directives Date on File: 12/24/21 service: No Current occupational status: retired Cognitive needs: No Hearing needs: No Vision needs: Yes Meds Allergies Allergy/AdvReac Type Severity Reaction Status Date / Time No Known Allergies Allergy Verified 04/25/22 17:01 [No Known Allergies*] Active Medications: Current Medications Benzocaine (Throat Lozenge, Medicated Lozenge) 1 lozenge MUCOUS MEM RQ4H PRN PRN Reason: Sore Throat Dextrose/Sodium Chloride (D5ns) 1,000 mls @ 100 mls/hr IVCONT .Q10H SOFIA Sodium Chloride (Ns) 1,000 mls @ 100 mls/hr IVCONT .Q10H SOFIA Morphine Sulfate (Morphine Sulfate 4 Mg/Ml Cartridge) 4 mg IVPUSH RQ4H PRN; Protocol PRN Reason: Pain, Severe (Pain Scale 7-10) Ondansetron HCl (Ondansetron Hcl 4 Mg/2 Ml Vial) 4 mg IVPUSH RQ6H PRN PRN Reason: Nausea and Vomiting Pantoprazole Sodium (Pantoprazole Sodium 40 Mg/10 Ml Vial) 40 mg IVPUSH DAILY ONE Stop: 04/26/22 19:01 Pharmacy Consult (Consult Rx Perform Med Rec) 1 each MISCELLANE ONCE PRN PRN Reason: Consult order Sodium Chloride (0.9 % Sodium Chloride Flush 3 Ml Syringe) 3 ml IVFLUSH QSHIFT [facility] Home Medications Medication Instructions Recorded Confirmed Last Taken Type cholecalciferol (vitamin D3) 25 25 mcg PO DAILY 03/10/20 04/26/22 04/26/22 History mcg (1,000 unit) capsule cetirizine 10 mg tablet 10 mg PO DAILY 04/26/22 04/26/22 04/25/22 History multivitamin 1 tab PO DAILY 04/26/22 04/26/22 04/25/22 History Physical Exam Vital Signs: Vital Signs: Last Vital Signs Temp 97.5 F 04/26/22 18:34 Pulse 102 H 04/26/22 18:34 Resp 18 04/26/22 18:34 BP 180/88 H 04/26/22 18:34 Pulse Ox 93 04/26/22 18:34 O2 Del Method 04/26/22 18:34 BMI result Body Mass Index 28.1 Const: General: cooperative, alert, awake and acute distress mild Nutritional Appearance: average body habitus Orientation/consciousness: oriented to person, oriented to place and oriented to time HEENT: Head: Yes normal to inspection Neck: Neck: Yes normal visual inspection Resp: Effort & Inspection: normal respiratory effort Auscultation: clear to auscultation bilaterally Cardio: Rate: regular rate Rhythm: regular rhythm GI: Other: abdomen is soft but distended and tympanitic he has high-pitched bowel sounds consistent with a bowel obstruction. Right side is nontender the left abdomen is diffusely tender but no guarding no peritoneal signs. No masses are palpable Skin: General skin exam: no rashes or lesions noted Neuro: General: oriented to person, oriented to place and oriented to time Extrem: General: Yes normal to inspection Psych: Appearance: grossly normal Mental Status: mental status grossly normal Results Results Labs: Short CBC 04/26/22 Range/Units 14:36 WBC 12.9 H (4.8-10.8) X10*3/uL Hgb 14.6 (14.0-18.0) g/dl Hct 44.7 (42.0-52.0) % Plt Count 275 (160-400) X10*3/uL BMP 04/26/22 14:36 Sodium 139 Potassium 4.0 Chloride 98 Carbon Dioxide 28 BUN 30 H Creatinine 1.19 Calcium 9.2 Liver Function 04/26/22 Range/Units 14:36 Total Bilirubin 0.8 (0.0-1.0) mg/dL AST 17 (5-37) U/L ALT 40 (0-40) U/L Alkaline Phosphatase 83 (39-117) U/L Albumin 4.3 (3.5-5.0) g/dL Urine 04/26/22 Range/Units 17:21 Urine Color Dark Yellow Urine Appearance Clear Urine pH 5.0 (5.0-9.0) Ur Specific [place] >= 1.030 H (1.005-1.025) Urine Protein 100 (2+) H (Neg-Trace) mg/dL Urine Glucose (UA) Negative (Negative) mg/dL Abdomen CT scan report/results: report reviewed and image reviewed CT scan - pelvis: report reviewed and image reviewed Assessment and Plan (1) Bowel obstruction: Status: Acute Plan 71-year-old male with a bowel obstruction question etiology. Apparently it has been worsening over the last month. He has not passed any gas in the last dated 2 and has not had bowel movement over a week. This is unusual for him. He has had a colonoscopy he says in 2014 that was normal. At this point I do not think that he has ischemic bowel but he is very distended an obstructed. Plan to place NG tube decompressed him IV hydration and serial abdominal exams. We will try and enema from below to move along with stool and see how he does. May need inpatient colonoscopy to evaluate the cecum. Question whether he may have a mass present here. In the meantime repeat labs tomorrow IV fluid hydration and will see how he does. He and his understand and agree with the above plan Time Spent With Patient Time: Total time managing care of this patient today ____ minutes. Quality Stroke Does the patient have a stroke diagnosis?: No VTE Prior VTE?: No VTE Risk Level:: Surgical - low VTE Device Contraindication: N/A - Device Ordered VTE Drug Contraindication: Treatment Not Indicated Procedures Date of Service Date of Service: 04/26/22
[2022-04-26 19:13] LABS: RBC Urine 0-2 /HPF (0-2); WBC Urine 0-5 /HPF (0-5)
[2022-04-26 19:14] LABS: Bacteria Urine None Seen (None Seen); Hyaline Casts Urine 0-2 /LPF (0-2); Squamous Epithelial Cell Urine 0-2 /HPF (0-2)
[2022-04-26 19:28] VITALS: BP 158/80; PULSE 102; RESP 14; TEMP 36.9; O2SAT 93
--- NOTE | 2022-04-26 21:14 | MHC.EDTECH ---
POC done 145 DUTCH kim.
[2022-04-26 21:16] LABS: Glucose, Whole Blood 145 mg/dL (60-115)
[2022-04-26] MEDS: 0.9 % Sodium Chloride 1,000 ML 100 ML IVCONT (21:47)
[2022-04-26] MEDS: Pantoprazole Sodium 40 MG/10 ML VIAL IVPUSH (21:48)
--- NOTE | 2022-04-26 22:01 | PC.NURSE ---
IVF NS running at 100mL/hour. Pt. due for an enema, however, pt. wanting to sleep right now. Will give pt. enema after pt. has had a chance to rest. NG tube is in place and is draining. Pt. much more comfortable since NG tube was placed. is at bedside.
[2022-04-27] MEDS: Sodium Phosphate,Mono-Dibasic 133 ML ENEMA PR (02:10)
--- NOTE | 2022-04-27 02:19 | PC.NURSE ---
Pt. awake and prepared for the enema. Enema administered...pending results.
--- NOTE | 2022-04-27 02:43 | PC.NURSE ---
Charted against 2100 dextrose 5% fluids as pt. had both NS and D5 ordered. Blood sugar level 145. Messaged the surgeon and will hold the D5 and give the NS.
--- NOTE | 2022-04-27 03:49 | MHC.EDTECH ---
of pt would like a call if anything is going to happen to her before 8 am. She went home and will be back at 8 am.
--- NOTE | 2022-04-27 04:26 | PC.NURSE ---
Pt. had a small amount of stool following enema.
--- NOTE | 2022-04-27 04:52 | PC.NURSE ---
Pulled 600mL of fluid off NG tube waste container. Cannister and tubing appeared to no longer be suctioning. Tested suction, replaced tubing. Suction is functioning, however, output has decreased to almost 0.
[2022-04-27 05:48] VITALS: BP 169/80; PULSE 86; RESP 14; TEMP 36.8; O2SAT 95
--- NOTE | 2022-04-27 06:26 | MHC.EDTECH ---
POC taken 163. DUTCH kim.
[2022-04-27 06:28] LABS: Glucose, Whole Blood 163 mg/dL (60-115)
--- NOTE | 2022-04-27 06:31 | PC.NURSE ---
Pt. IVF still running. Due at 5am. Will hang when current bag is completed. Current POC is 163. Plan is to hang NS and chart against D5.
[2022-04-27 07:44] LABS: Hemoglobin 13.3 g/dl (14.0-18.0); Mean Corpuscular HGB Conc 32.4 g/dl (31.0-36.0); Mean Corpuscular Hemoglobin 26.4 pg (27.0-33.0); Mean Corpuscular Volume 81.3 fL (80.0-98.0); Mean Platelet Volume 10.2 fL (9.4-12.4); Platelet Count 256 X10*3/uL (160-400); Red Blood Count 5.04 X10*6/uL (4.60-5.80); Red Cell Distribution Width 13.1 % (11.0-16.0); White Blood Count 9.7 X10*3/uL (4.8-10.8)
[2022-04-27 07:59] LABS: Anion Gap 18 (12-20); Blood Urea Nitrogen 31 mg/dL (9-16); Calcium 8.5 mg/dL (8.4-10.2); Carbon Dioxide 25 mmol/L (22-29); Chloride 103 mmol/L (96-108); Creatinine Clr Calc Pharmacy 58.5; Estimated Glomerular Filt Rate > 60; Glucose Random 171 mg/dL (60-115); Potassium 4.5 mmol/L (3.3-5.1); Sodium 141 mmol/L (135-145)
[2022-04-27 08:11] LABS: Band Neutrophils Percent 16 % (3-5); Basophils Abs Manual 0.1 X10*3/uL (0.0-0.2); Basophils Percent Manual 1 % (0-2); Lymphocytes Absolute Manual 0.7 X10*3/uL (1.2-4.9); Lymphocytes Percent Manual 7 % (20-40); Monocytes Absolute Manual 1.5 X10*3/uL (0.1-1.2); Monocytes Percent Manual 15 % (2-11); Neutrophils Absolute Manual 7.5 X10*3/uL (2.0-8.3); Neutrophils Percent Manual 61 % (45-73)
[2022-04-27 08:13] LABS: Burr Cells 1+ (0-2) /OIF; Microcytosis 1+ (5-14) /OIF; Platelet Estimate NORMAL (NORMAL); Platelet Morphology Comment NORMAL; Polychromasia 1+ (0-2) /OIF; RBC Morphology NOTED; Toxic Vacuolation PRESENT
[2022-04-27] MEDS: 0.9 % Sodium Chloride 1,000 ML 100 ML IVCONT ×2 (10:10→22:04)
--- NOTE | 2022-04-27 10:57 | P.PNGS_ITS ---
Subjective Subjective Date of Service: 04/27/22 <Crystal Hernandez PA-C - Last Filed: 04/27/22 12:11> 04/28/22 <Darion Fam MD - Last Filed: 04/28/22 09:11> Interval history: Abdominal pain is minimally improved. Continues to feel very bloated. Denies flatus. Had very small hard BM following fleets. Reports change in stool caliber over the past month with a couple of episodes of blood in stool. Denies prior abd surgery. Colonoscopy in 2014 revealed hemorrhoids otherwise normal. <Crystal Hernandez PA-C - Last Filed: 04/27/22 12:11> Physical Exam Vital Signs: Vital Signs: Last Vital Signs Temp 98.3 F 04/27/22 05:48 Pulse 86 04/27/22 05:48 Resp 14 04/27/22 05:48 BP 169/80 H 04/27/22 05:48 Pulse Ox 95 04/27/22 05:48 O2 Del Method 04/27/22 05:48 BMI result Body Mass Index 28.1 <Crystal Hernandez PA-C - Last Filed: 04/27/22 12:11> Const: General: comfortable, no acute distress and alert <GEOVANY Swanson Last Filed: 04/27/22 12:11> Orientation/consciousness: patient oriented x3 <GEOVANY Swanson Last Filed: 04/27/22 12:11> Resp: Effort & Inspection: normal respiratory effort <Crystal Hernandez PA-C - Last Filed: 04/27/22 12:11> Cardio: Rate: regular rate <Crystal Hernandez PA-C - Last Filed: 04/27/22 12:11> GI: Inspection: Yes distended and No scar <GEOVANY Swanson Last Filed: 04/27/22 12:11> Palpation (GI): Soft to palpation, Tenderness to palpation present (GI) (diffusely, mild), no guarding and not rigid <GEOVANY Swanson Last Filed: 04/27/22 12:11> Percussion: Yes tympanic to percussion <GEOVANY Swanson Filed: 04/27/22 12:11> Skin: General skin exam: no rashes or lesions noted <GEOVANY Swanson Last Filed: 04/27/22 12:11> Neuro: General: patient oriented x3 <GEOVANY Swanson Last Filed: 04/27/22 12:11> Extrem: General: Yes no clubbing, cyanosis or edema <Crystal Hernandez PA-C - Last Filed: 04/27/22 12:11> Objective Data Active Medications Benzocaine (Throat Lozenge, Medicated Lozenge) 1 lozenge MUCOUS MEM RQ4H PRN PRN Reason: Sore Throat Dextrose/Sodium Chloride (D5ns) 1,000 mls @ 100 mls/hr IVCONT .Q10H [facility] Last Admin: 04/26/22 21:43 Dose: Not Given Documented By: GALEN Non-Admin Reason: Physician Approved Sodium Chloride (Ns) 1,000 mls @ 100 mls/hr IVCONT .Q10H [facility] Last Admin: 04/27/22 10:10 Dose: 100 mls/hr Documented By: XIOMARA Morphine Sulfate (Morphine Sulfate 4 Mg/Ml Cartridge) 4 mg IVPUSH RQ4H PRN; Protocol PRN Reason: Pain, Severe (Pain Scale 7-10) Ondansetron HCl (Ondansetron Hcl 4 Mg/2 Ml Vial) 4 mg IVPUSH RQ6H PRN PRN Reason: Nausea and Vomiting Pantoprazole Sodium (Pantoprazole Sodium 40 Mg/10 Ml Vial) 40 mg IVPUSH DAILY@0630 [facility] Last Admin: 04/26/22 21:48 Dose: 40 mg Documented By: GALEN Pharmacy Consult (Consult Rx Perform Med Rec) 1 each MISCELLANE ONCE PRN PRN Reason: Consult order Sodium Chloride (0.9 % Sodium Chloride Flush 3 Ml Syringe) 3 ml IVFLUSH QSHIFT [facility] Last Admin: 04/27/22 02:14 Dose: Not Given Documented By: GALEN Non-Admin Reason: IV Running <GEOVANY Swanson Last Filed: 04/27/22 12:11> Labs CBC & Chem 7: : 04/27/22 07:16 04/28/22 05:19 <Crystal Hernandez PA-C - Last Filed: 04/27/22 12:11> Labs: Laboratory Results - last 24 hr 04/26/22 04/26/22 04/26/22 14:36 14:36 14:36 MCV 79.5 L MCH 26.0 L MCHC 32.7 RDW 12.9 Plt Count 275 MPV 9.8 Immature Gran % (Auto) 0.2 Neut % (Auto) 80.5 H Lymph % (Auto) 7.6 L [place] % (Auto) 11.4 H Eos % (Auto) 0.1 Baso % (Auto) 0.2 Lymph # (Auto) 1.0 L [place] # (Auto) 1.5 H Eos # (Auto) 0.0 Baso # (Auto) 0.0 Abs Immat Gran (auto) 0.03 Absolute Neuts (auto) 10.3 H Absolute Nucleated RBC 0.000 Nucleated RBC % (auto) 0.0 Neutrophils % (Manual) Band Neutrophils % Lymphocytes % (Manual) Monocytes % (Manual) Basophils % (Manual) Abs Neuts (Manual) Lymphocytes # (Manual) Monocytes # (Manual) Basophils # (Manual) Toxic Vacuolation Platelet Estimate Plt Morphology Comment RBC Morphology Polychromasia Microcytosis Mai Cells ESR PT 16.1 H INR 1.4 H Anion Gap 17 Estim Creat Clear Calc 54.0 Estimated GFR > 60 POC Glucose Random Glucose 195 H Lactic Acid Calcium 9.2 Magnesium 2.5 Total Bilirubin 0.8 AST 17 ALT 40 Alkaline Phosphatase 83 C-Reactive Protein Total Protein 6.9 Albumin 4.3 Lipase 10 Carcinoembryonic Ag Urine Color Urine Appearance Urine pH Ur Specific [place] Urine Protein Urine Glucose (UA) Urine Ketones Urine Blood Urine Nitrite Ur Leukocyte Esterase Urine RBC Urine WBC Ur Squamous Epith Cells Urine Bacteria Hyaline Casts Influenza Type A (PCR) Influenza Type B (PCR) RSV RNA Qual (PCR) SARS-CoV-2 RNA (RT-PCR) Blood Type Antibody Screen 04/26/22 04/26/22 04/26/22 14:36 17:21 17:22 MCV MCH MCHC RDW Plt Count MPV Immature Gran % (Auto) Neut % (Auto) Lymph % (Auto) [place] % (Auto) Eos % (Auto) Baso % (Auto) Lymph # (Auto) [place] # (Auto) Eos # (Auto) Baso # (Auto) Abs Immat Gran (auto) Absolute Neuts (auto) Absolute Nucleated RBC Nucleated RBC % (auto) Neutrophils % (Manual) Band Neutrophils % Lymphocytes % (Manual) Monocytes % (Manual) Basophils % (Manual) Abs Neuts (Manual) Lymphocytes # (Manual) Monocytes # (Manual) Basophils # (Manual) Toxic Vacuolation Platelet Estimate Plt Morphology Comment RBC Morphology Polychromasia Microcytosis [place] Cells ESR 7 PT INR Anion Gap Estim Creat Clear Calc Estimated GFR POC Glucose Random Glucose Lactic Acid Calcium Magnesium Total Bilirubin AST ALT Alkaline Phosphatase C-Reactive Protein Total Protein Albumin Lipase Carcinoembryonic Ag Urine Color Dark Yellow Urine Appearance Clear Urine pH 5.0 Ur Specific [place] >= 1.030 H Urine Protein 100 (2+) H Urine Glucose (UA) Negative Urine Ketones 15 Urine Blood Negative Urine Nitrite Negative Ur Leukocyte Esterase Negative Urine RBC 0-2 Urine WBC 0-5 Ur Squamous Epith Cells 0-2 Urine Bacteria None Seen Hyaline Casts 0-2 Influenza Type A (PCR) NEGATIVE Influenza Type B (PCR) NEGATIVE RSV RNA Qual (PCR) NEGATIVE SARS-CoV-2 RNA (RT-PCR) NEGATIVE Blood Type Antibody Screen 04/26/22 04/26/22 04/26/22 17:22 17:22 17:28 MCV MCH MCHC RDW Plt Count MPV Immature Gran % (Auto) Neut % (Auto) Lymph % (Auto) [place] % (Auto) Eos % (Auto) Baso % (Auto) Lymph # (Auto) [place] # (Auto) Eos # (Auto) Baso # (Auto) Abs Immat Gran (auto) Absolute Neuts (auto) Absolute Nucleated RBC Nucleated RBC % (auto) Neutrophils % (Manual) Band Neutrophils % Lymphocytes % (Manual) Monocytes % (Manual) Basophils % (Manual) Abs Neuts (Manual) Lymphocytes # (Manual) Monocytes # (Manual) Basophils # (Manual) Toxic Vacuolation Platelet Estimate Plt Morphology Comment RBC Morphology Polychromasia Microcytosis Mai Cells ESR PT INR Anion Gap Estim Creat Clear Calc Estimated GFR POC Glucose Random Glucose Lactic Acid 1.2 Calcium Magnesium Total Bilirubin AST ALT Alkaline Phosphatase C-Reactive Protein 14.91 H Total Protein Albumin Lipase Carcinoembryonic Ag Urine Color Urine Appearance Urine pH Ur Specific [place] Urine Protein Urine Glucose (UA) Urine Ketones Urine Blood Urine Nitrite Ur Leukocyte Esterase Urine RBC Urine WBC Ur Squamous Epith Cells Urine Bacteria Hyaline Casts Influenza Type A (PCR) Influenza Type B (PCR) RSV RNA Qual (PCR) SARS-CoV-2 RNA (RT-PCR) Blood Type A Positive Antibody Screen NEGATIVE 04/26/22 04/27/22 04/27/22 21:12 06:24 07:16 MCV 81.3 MCH 26.4 L MCHC 32.4 RDW 13.1 Plt Count 256 MPV 10.2 Immature Gran % (Auto) Cancelled Neut % (Auto) Cancelled Lymph % (Auto) Cancelled [place] % (Auto) Cancelled Eos % (Auto) Cancelled Baso % (Auto) Cancelled Lymph # (Auto) Cancelled [place] # (Auto) Cancelled Eos # (Auto) Cancelled Baso # (Auto) Cancelled Abs Immat Gran (auto) Cancelled Absolute Neuts (auto) Cancelled Absolute Nucleated RBC 0.000 Nucleated RBC % (auto) 0.0 Neutrophils % (Manual) 61 Band Neutrophils % 16 H Lymphocytes % (Manual) 7 L Monocytes % (Manual) 15 H Basophils % (Manual) 1 Abs Neuts (Manual) 7.5 Lymphocytes # (Manual) 0.7 L Monocytes # (Manual) 1.5 H Basophils # (Manual) 0.1 Toxic Vacuolation PRESENT Platelet Estimate NORMAL Plt Morphology Comment NORMAL RBC Morphology NOTED Polychromasia 1+ (0-2) Microcytosis 1+ (5-14) [place] Cells 1+ (0-2) ESR PT INR Anion Gap Estim Creat Clear Calc Estimated GFR POC Glucose 145 H 163 H Random Glucose Lactic Acid Calcium Magnesium Total Bilirubin AST ALT Alkaline Phosphatase C-Reactive Protein Total Protein Albumin Lipase Carcinoembryonic Ag Urine Color Urine Appearance Urine pH Ur Specific [place] Urine Protein Urine Glucose (UA) Urine Ketones Urine Blood Urine Nitrite Ur Leukocyte Esterase Urine RBC Urine WBC Ur Squamous Epith Cells Urine Bacteria Hyaline Casts Influenza Type A (PCR) Influenza Type B (PCR) RSV RNA Qual (PCR) SARS-CoV-2 RNA (RT-PCR) Blood Type Antibody Screen 04/27/22 04/27/22 07:16 07:16 MCV MCH MCHC RDW Plt Count MPV Immature Gran % (Auto) Neut % (Auto) Lymph % (Auto) [place] % (Auto) Eos % (Auto) Baso % (Auto) Lymph # (Auto) [place] # (Auto) Eos # (Auto) Baso # (Auto) Abs Immat Gran (auto) Absolute Neuts (auto) Absolute Nucleated RBC Nucleated RBC % (auto) Neutrophils % (Manual) Band Neutrophils % Lymphocytes % (Manual) Monocytes % (Manual) Basophils % (Manual) Abs Neuts (Manual) Lymphocytes # (Manual) Monocytes # (Manual) Basophils # (Manual) Toxic Vacuolation Platelet Estimate Plt Morphology Comment RBC Morphology Polychromasia Microcytosis [place] Cells ESR PT INR Anion Gap 18 Estim Creat Clear Calc 58.5 Estimated GFR > 60 POC Glucose Random Glucose 171 H Lactic Acid Calcium 8.5 D Magnesium Total Bilirubin AST ALT Alkaline Phosphatase C-Reactive Protein Total Protein Albumin Lipase Carcinoembryonic Ag 2.50 Urine Color Urine Appearance Urine pH Ur Specific [place] Urine Protein Urine Glucose (UA) Urine Ketones Urine Blood Urine Nitrite Ur Leukocyte Esterase Urine RBC Urine WBC Ur Squamous Epith Cells Urine Bacteria Hyaline Casts Influenza Type A (PCR) Influenza Type B (PCR) RSV RNA Qual (PCR) SARS-CoV-2 RNA (RT-PCR) Blood Type Antibody Screen <Crystal Hernandez PA-C - Last Filed: 04/27/22 12:11> Procedures Date of Service Date of Service: 04/27/22 <Crystal Hernandez PA-C - Last Filed: 04/27/22 12:11> Progress Note: A&P Assessment and plan (1) Bowel obstruction: Status: Acute <Crystal Hernandez PA-C - Last Filed: 04/27/22 12:11> Assessment and Plan: Patient with lingering abdominal pain for almost month He was in the ER last April 09 for similar complaint -CT scan did not reveal any significant acute process CT scan reviewed multiple times with the radiologist - diffuse dilatation of the small bowel, right colon and transverse, seems to taper the distal sigmoid no obvious mass or cut off Colonoscopy in 2015 did not reveal any lesions or polyps CEA level normal As per radiologist - consider colonic ileus Will need to rule out distal obstruction - repeat CT with Gastrografin, andl consider flexible sigmoidoscopy Keep NG tube in place I explained to patient and that surgical intervention may be necessary if with no improvement - stoma? Resection? <Darion Fam MD - Last Filed: 04/28/22 09:11> Assessment and Plan: 71 year old male with one month history of worsening abd pain now presenting with abd pain, bloating and obstipation with CT scan showing dilated bowel loops with ?transition at the level of the ileocecal junction. Etiology of obstruction remains unclear; review of CT shows there may be rectosigmoid narrowing. He reports little to no improvement with NGT insertion and very little results with fleets. Will repeat CT scan with gastrograffin via NGT to further evaluate colon. ?Flex sigmoid down the line if CT unrevealing. Continue supportive measures of NPO, NGT, IVF for now. Plan discussed with patient and . <Crystal Hernandez PA-C - Last Filed: 04/27/22 12:11> Time Spent With Patient Time: Total time managing care of this patient today ____ minutes. <Crystal Hernandez PA-C - Last Filed: 04/27/22 12:11> Quality Stroke Does the patient have a stroke diagnosis?: No <Crystal Hernandez PA-C - Last Filed: 04/27/22 12:11> VTE Prior VTE?: No <Crystal Hernandez PA-C - Last Filed: 04/27/22 12:11> VTE Risk Level:: Surgical - low <GEOVANY Swanson Last Filed: 04/27/22 12:11> VTE Device Contraindication: N/A - Device Ordered <Crytsal Hernandez PA-C - Last Filed: 04/27/22 12:11> VTE Drug Contraindication: Treatment Not Indicated <Crystal Hernandez PA-C - Last Filed: 04/27/22 12:11>
--- NOTE | 2022-04-27 11:16 | PC.NURSE ---
Patients blood sugar remains stable, to continue wuth NS infusion, not D5 at this time
[2022-04-27] MEDS: 0.9 % Sodium Chloride Flush 3 ML SYRINGE IVFLUSH (11:27)
--- NOTE | 2022-04-27 11:34 | MHC.CM.PN ---
met with pt and his they are independent cm intervention is not indicated,pt is blaine castillo x5 ,has a ride home dc [place] [facility] no servceis
[2022-04-27 13:56] VITALS: BP 178/82; PULSE 94; RESP 16; TEMP 37.1; O2SAT 93
[2022-04-27 14:19] LABS: Glucose, Whole Blood 158 mg/dL (60-115)
[2022-04-27 15:28] VITALS: BP 187/96; PULSE 88; RESP 18; TEMP 37.1; O2SAT 96
--- NOTE | 2022-04-27 17:05 | PM.EVENT ---
Event Note Date of Service: 04/27/22 Event Note: Barium enema done, images reviewed with radiologist no colonic obstruction seen although colon distended diffusely - imaging suggestive of atony? plan to repeat CT scan tomorrow as discussed with radiologist abdomen remains distended although soft Keep NG tube in place to wall suction intermittently - nursing staff reminded and patient updated keep NPO IV fluids repeat BMP in a.m. in view of NG tube losses Time Spent With Patient Time: Total time managing care of this patient today ____ minutes.
[2022-04-27 18:04] LABS: Glucose, Whole Blood 186 mg/dL (60-115)
--- NOTE | 2022-04-27 18:08 | PC.NURSE ---
POC 186. 2 units lispro held per Dr Fam due to pt being NPO
[2022-04-27 19:21] VITALS: BP 190/89; PULSE 94; RESP 18; TEMP 36.9; O2SAT 94
[2022-04-28 00:52] LABS: Glucose, Whole Blood 135 mg/dL (60-115)
[2022-04-28 03:31] VITALS: BP 177/84; PULSE 83; RESP 18; TEMP 36.9; O2SAT 93
[2022-04-28 05:21] LABS: Glucose, Whole Blood 150 mg/dL (60-115)
[2022-04-28] MEDS: Pantoprazole Sodium 40 MG/10 ML VIAL IVPUSH (05:30)
[2022-04-28 06:19] LABS: Anion Gap 14 (12-20); Blood Urea Nitrogen 27 mg/dL (9-16); Calcium 8.3 mg/dL (8.4-10.2); Carbon Dioxide 23 mmol/L (22-29); Chloride 111 mmol/L (96-108); Creatinine Clr Calc Pharmacy 75.7; Estimated Glomerular Filt Rate > 60; Glucose Random 146 mg/dL (60-115); Sodium 144 mmol/L (135-145)
[2022-04-28 07:42] LABS: Glucose, Whole Blood 155 mg/dL (60-115)
[2022-04-28] MEDS: 0.9 % Sodium Chloride 1,000 ML 100 ML IVCONT (07:59)
[2022-04-28 08:00] VITALS: BP 196/91; PULSE 91; RESP 18; TEMP 37.2; O2SAT 93
--- NOTE | 2022-04-28 09:07 | P.PNGS_ITS ---
Subjective Subjective Date of Service: 04/29/22 Interval history: says he feels better this AM less discomfort minimal abdominal pain says he passed a little flatus overnight Physical Exam Vital Signs: Vital Signs: Last Vital Signs Temp 99.0 F 04/28/22 08:00 Pulse 91 04/28/22 08:00 Resp 18 04/28/22 08:00 BP 196/91 H 04/28/22 08:00 Pulse Ox 93 04/28/22 08:00 O2 Del Method 04/28/22 08:00 BMI result Body Mass Index 28.1 Const: Other: NGT in General: comfortable and no acute distress Resp: Effort & Inspection: normal respiratory effort Cardio: Rate: regular rate GI: Other: distended, soft, mild tenderness diffusely Palpation (GI): no guarding and not rigid Objective Data Active Medications Benzocaine (Throat Lozenge, Medicated Lozenge) 1 lozenge MUCOUS MEM RQ4H PRN PRN Reason: Sore Throat Dextrose (Dextrose 50 % 25 Gm/50 Ml Syringe) 25 gm IVPUSH Q15M PRN; Protocol PRN Reason: per Hypoglycemia Standing Ord. Glucose (Glucose Gel 15 Gm Gel..Gram.) 15 gm PO Q15M PRN; Protocol PRN Reason: per Hypoglycemia Standing Ord. Dextrose/Sodium Chloride (D5ns) 1,000 mls @ 100 mls/hr IVCONT .Q10H [facility] Last Admin: 04/28/22 01:45 Dose: Not Given Documented By: KOURTNEY Non-Admin Reason: IV Running Sodium Chloride (Ns) 1,000 mls @ 100 mls/hr IVCONT .Q10H [facility] Last Admin: 04/28/22 07:59 Dose: 100 mls/hr Documented By: ELENA Insulin Human Lispro (Insulin Lispro 100 Unit/Ml 3 Ml Vial) 0 unit SUBCUT Q6H [facility]; Protocol Last Admin: 04/28/22 05:20 Dose: Not Given Documented By: KOURTNEY Non-Admin Reason: No Insulin Coverage Morphine Sulfate (Morphine Sulfate 4 Mg/Ml Cartridge) 4 mg IVPUSH RQ4H PRN; Protocol PRN Reason: Pain, Severe (Pain Scale 7-10) Ondansetron HCl (Ondansetron Hcl 4 Mg/2 Ml Vial) 4 mg IVPUSH RQ6H PRN PRN Reason: Nausea and Vomiting Pantoprazole Sodium (Pantoprazole Sodium 40 Mg/10 Ml Vial) 40 mg IVPUSH DAILY@0630 [facility] Last Admin: 04/28/22 05:30 Dose: 40 mg Documented By: KOURTNEY Pharmacy Consult (Consult Rx Perform Med Rec) 1 each MISCELLANE ONCE PRN PRN Reason: Consult order Sodium Chloride (0.9 % Sodium Chloride Flush 3 Ml Syringe) 3 ml IVFLUSH QSHIFT [facility] Last Admin: 04/28/22 07:58 Dose: Not Given Documented By: ELENA Non-Admin Reason: IV Running Labs CBC & Chem 7: 04/29/22 05:10 04/29/22 05:10 Labs: Laboratory Results - last 24 hr 04/27/22 04/27/22 04/28/22 14:15 17:59 00:49 Anion Gap Estim Creat Clear Calc Estimated GFR POC Glucose 158 H 186 H 135 H Random Glucose Calcium 04/28/22 04/28/22 04/28/22 05:18 05:19 07:37 Anion Gap 14 Estim Creat Clear Calc 75.7 Estimated GFR > 60 POC Glucose 150 H 155 H Random Glucose 146 H Calcium 8.3 L Microbiology Microbiology Results: Microbiology 04/26/22 17:27 Blood Culture - Preliminary Blood - Venous No growth after 24 hours. 04/26/22 17:21 Blood Culture - Preliminary Blood - Venous No growth after 24 hours. Procedures Date of Service Date of Service: 04/28/22 Progress Note: A&P Assessment and plan (1) Abdominal pain: Status: Acute Assessment and Plan: Barium enema study does not reveal obstruction in colon colon distension from atony? pseudo obstruction? images reviewed again with radiologist - SB may be from air backing up from the colon will repeat CT with oral contrast, Gastrograffin remains distended although soft lytes ok IV fluids plan explained to pt hospitalist consult for HTN Time Spent With Patient Time: Total time managing care of this patient today ____ minutes. Quality Stroke Does the patient have a stroke diagnosis?: No VTE Prior VTE?: No VTE Risk Level:: Surgical - low VTE Device Contraindication: N/A - Device Ordered VTE Drug Contraindication: Treatment Not Indicated
[2022-04-28 11:23] LABS: Glucose, Whole Blood 139 mg/dL (60-115)
--- NOTE | 2022-04-28 11:44 | HO.PM.IMCN ---
History of Present Illness Data of Consult Service Date: 04/28/22 Requesting physician: Crystal Hernandez Primary Care Provider: Bimal Lepe MD [facility] Reason for consult: HTN, DM 71-year-old male with history of [id number] type 2 diabetes, hypertension, hypercholesterolemia, vitamin-D deficiency admitted to General surgery for management of acute abdominal pain with consult placed to Medicine for management of hypertension and diabetes. Patient has been NPO with NG tube in place being managed by General surgery. Glucose levels have been reasonably controlled. However blood pressures have been elevated. No headaches, lightheadedness, shortness of breath, chest pain. Review of Systems Review of Systems: Yes all other systems are reviewed and are negative [facility] Medical History Benign essential hypertension Diabetes mellitus Overweight (BMI 25.0-29.9) Pure hypercholesterolemia Syncope Vitamin D deficiency Family History Father Hypertension Diabetes Mother Diabetes Hypertension Surgical History History of colonoscopy Social History Household Members: Spouse Housing: House Do you presently have visiting nurse or other home services: No Alcohol intake: never Patient Tobacco Use Status: Never used Tobacco e-Cigarette/Vaping Use: Never Used Second Hand Smoke Exposure: Yes Advance Directives Date on File: 12/24/21 service: No Current occupational status: retired Cognitive needs: No Hearing needs: No Vision needs: Yes Meds Allergies Allergy/AdvReac Type Severity Reaction Status Date / Time No Known Allergies Allergy Verified 04/25/22 17:01 [No Known Allergies*] Active Medications: Current Medications Benzocaine (Throat Lozenge, Medicated Lozenge) 1 lozenge MUCOUS MEM RQ4H PRN PRN Reason: Sore Throat Dextrose (Dextrose 50 % 25 Gm/50 Ml Syringe) 25 gm IVPUSH Q15M PRN; Protocol PRN Reason: per Hypoglycemia Standing Ord. Glucose (Glucose Gel 15 Gm Gel..Gram.) 15 gm PO Q15M PRN; Protocol PRN Reason: per Hypoglycemia Standing Ord. Dextrose/Sodium Chloride (D5ns) 1,000 mls @ 100 mls/hr IVCONT .Q10H [facility] Last Admin: 04/28/22 11:05 Dose: Not Given Sodium Chloride (Ns) 1,000 mls @ 100 mls/hr IVCONT .Q10H [facility] Last Admin: 04/28/22 07:59 Dose: 100 mls/hr Insulin Human Lispro (Insulin Lispro 100 Unit/Ml 3 Ml Vial) 0 unit SUBCUT Q6H [facility]; Protocol Last Admin: 04/28/22 11:31 Dose: Not Given Lisinopril (Lisinopril 20 Mg Tablet) 20 mg PO DAILY [facility]; Protocol Morphine Sulfate (Morphine Sulfate 4 Mg/Ml Cartridge) 4 mg IVPUSH RQ4H PRN; Protocol PRN Reason: Pain, Severe (Pain Scale 7-10) Ondansetron HCl (Ondansetron Hcl 4 Mg/2 Ml Vial) 4 mg IVPUSH RQ6H PRN PRN Reason: Nausea and Vomiting Pantoprazole Sodium (Pantoprazole Sodium 40 Mg/10 Ml Vial) 40 mg IVPUSH DAILY@0630 [facility] Last Admin: 04/28/22 05:30 Dose: 40 mg Pharmacy Consult (Consult Rx Perform Med Rec) 1 each MISCELLANE ONCE PRN PRN Reason: Consult order Sodium Chloride (0.9 % Sodium Chloride Flush 3 Ml Syringe) 3 ml IVFLUSH QSHIFT [facility] Last Admin: 04/28/22 07:58 Dose: Not Given Home Medications Medication Instructions Recorded Confirmed Last Taken Type cholecalciferol (vitamin D3) 25 25 mcg PO DAILY 03/10/20 04/26/22 04/26/22 History mcg (1,000 unit) capsule cetirizine 10 mg tablet 10 mg PO DAILY 04/26/22 04/26/22 04/25/22 History multivitamin 1 tab PO DAILY 04/26/22 04/26/22 04/25/22 History Physical Exam Vital Signs and Narrative: Vital Signs: Last Vital Signs Temp 99.0 F 04/28/22 08:00 Pulse 91 04/28/22 08:00 Resp 18 04/28/22 08:00 BP 196/91 H 04/28/22 08:00 Pulse Ox 93 04/28/22 08:00 O2 Del Method 04/28/22 08:00 BMI result Body Mass Index 28.1 Constitutional - Awake and Alert, No apparent distress Eyes - PERRLA, EOMI Cardiovascular - S1S2, RRR, No edema Respiratory - Normal lung expansion, Normal respiratory effort, No respiratory distress, CTA bilaterally Gastrointestinal - Softly distended, mild tenderness to palpation across the epigastric and left upper quadrant regions without any guarding or rebound. +BS; NGT in place Extremities - no calf tenderness bilaterally, no swelling Skin - Warm/Dry Neurological - Alert & oriented x3 Psychological - Appropriate affect Results Labs CBC and Chem 7: 04/27/22 07:16 04/28/22 05:19 Labs: Laboratory Results - last 24 hr 04/27/22 04/27/22 04/28/22 14:15 17:59 00:49 Anion Gap Estim Creat Clear Calc Estimated GFR POC Glucose 158 H 186 H 135 H Random Glucose Calcium 04/28/22 04/28/22 04/28/22 05:18 05:19 07:37 Anion Gap 14 Estim Creat Clear Calc 75.7 Estimated GFR > 60 POC Glucose 150 H 155 H Random Glucose 146 H Calcium 8.3 L 04/28/22 11:18 Anion Gap Estim Creat Clear Calc Estimated GFR POC Glucose 139 H Random Glucose Calcium Assessment and Plan (1) Abdominal pain: Status: Acute Plan 71-year-old male with history of [id number] type 2 diabetes, hypertension, hypercholesterolemia, vitamin-D deficiency admitted to General surgery for management of acute abdominal pain with consult placed to Medicine for management of hypertension and diabetes. #Acute abdominal pain -Plan per general surgery -NGT in place currently wt contrast being administed. NPO #Hypertension- uncontrolled with bp 189/89 during exam -Has not received PO Antihypertensives as he has been NPO with NGT in place. Now with contrast running through NG tube -Administer 1 time dose hydralazine 5mg given SBP >180 -Resume lisinopril later today once contrast studies completed # [id number] type 2 diabetes without hyperglycemia - glucose levels reasonably controlled - Continue POC - Currently NPO. Consider SSI once diet advances/NGT dc'd Thank you for allowing me to participate in this consult. Signing off at this time. Please do not hesitate to call for further questions. Time Spent With Patient Time: Total time managing care of this patient today ____ minutes.
[2022-04-28] MEDS: hydrALAZINE HCl 20 MG/ML VIAL 5 MG IVPUSH (12:00)
[2022-04-28] MEDS: Morphine Sulfate 4 MG/ML CARTRIDGE IVPUSH ×2 (12:00→22:41)
--- NOTE | 2022-04-28 13:02 | MHC.CM.PN ---
Addendum entered by Flora Dejesus RN 04/28/22 13:11: PT TO ARRANGE TRANSPORT Original Note: EMR REVIEWED, PT REMAINS ON NPO, PER SURGICAL NOTES PLAN FOR REPEAT ABD CT SCAN, PT PASSING FLATUS HOWEVER STILL AWAITING FULL RETURN OF BOWEL FX, CM WILL CONT TO FOLLOW D/C NEEDS. ANTIC PT WILL D/C HOME NO SERVICES WHEN MEDICALLY CLEARED AND
[2022-04-28] MEDS: Diatrizoate Meglumine, Sodium 30 ML SOLUTION PO (13:33)
[2022-04-28 15:29] VITALS: BP 195/95; PULSE 89; RESP 16; TEMP 36.8; O2SAT 94
[2022-04-28 16:20] LABS: Glucose, Whole Blood 142 mg/dL (60-115)
--- NOTE | 2022-04-28 17:23 | PM.EVENT ---
Event Note Date of Service: 04/29/22 Event Note: CT scan reviewed with multiple radiologists diffuse small bowel dilatation all the way to the colon, no obvious identifiable transition point abdomen remains distended but soft patient describes some pain, no nausea or vomiting denies flatus still uncertain as to why he remains very distended with diffuse dilatation of the GI tract no obvious mechanical obstruction noted may need exploration if persistent explained this to the patient and at bedside Time Spent With Patient Time: Total time managing care of this patient today ____ minutes.
[2022-04-28] MEDS: amLODIPine Besylate 10 MG TABLET PO (17:36)
[2022-04-28 20:00] VITALS: BP 180/70; PULSE 90; RESP 17; TEMP 36.6; O2SAT 94
[2022-04-28 20:11] LABS: Glucose, Whole Blood 134 mg/dL (60-115)
[2022-04-28 22:10] VITALS: BP 178/82
[2022-04-28] MEDS: Labetalol HCL 100 MG/20 ML VIAL 10 MG IVPUSH (22:41)
[2022-04-28 23:23] VITALS: BP 146/72
[2022-04-29] VITALS (13 sets, daily range): BP systolic 136–183; BP diastolic 64–87; PULSE 80–105; RESP 9–18; TEMP 36–37.3; O2SAT 89–97
[2022-04-29] MEDS: Pantoprazole Sodium 40 MG/10 ML VIAL IVPUSH (05:22)
[2022-04-29 05:31] LABS: Glucose, Whole Blood 145 mg/dL (60-115)
[2022-04-29] MEDS: 0.9 % Sodium Chloride 1,000 ML 100 ML IVCONT ×4 (06:15→22:52)
[2022-04-29 06:17] LABS: Hematocrit 39.8 % (42.0-52.0); Hemoglobin 12.7 g/dl (14.0-18.0); Mean Corpuscular HGB Conc 31.9 g/dl (31.0-36.0); Mean Corpuscular Hemoglobin 26.1 pg (27.0-33.0); Mean Corpuscular Volume 81.7 fL (80.0-98.0); Platelet Count 232 X10*3/uL (160-400); Red Blood Count 4.87 X10*6/uL (4.60-5.80); Red Cell Distribution Width 13.3 % (11.0-16.0); White Blood Count 14.5 X10*3/uL (4.8-10.8)
[2022-04-29 07:13] LABS: Anion Gap 18 (12-20); Blood Urea Nitrogen 22 mg/dL (9-16); Calcium 8.1 mg/dL (8.4-10.2); Carbon Dioxide 19 mmol/L (22-29); Chloride 111 mmol/L (96-108); Creatinine Clr Calc Pharmacy 81.4; Estimated Glomerular Filt Rate > 60; Glucose Random 128 mg/dL (60-115); Potassium 4.1 mmol/L (3.3-5.1); Sodium 144 mmol/L (135-145)
--- NOTE | 2022-04-29 08:20 | P.PNGS_ITS ---
Subjective Subjective Date of Service: 04/29/22 <Crystal Hernandez PA-C - Last Filed: 04/29/22 08:26> 04/29/22 <Darion Fam MD - Last Filed: 04/29/22 12:54> Interval history: Denies constant abd pain but has intermittent episodes of cramping. Feels like his abd is softer. Taking in a lot of cups of ice chips. Denies nausea. Denies flatus or BM. Has not been OOB. <Crystal Hernandez PA-C - Last Filed: 04/29/22 08:26> Physical Exam Vital Signs: Vital Signs: Last Vital Signs Temp 97.9 F 04/29/22 07:06 Pulse 83 04/29/22 07:06 Resp 18 04/29/22 07:06 BP 158/72 H 04/29/22 07:06 Pulse Ox 94 04/29/22 07:06 O2 Del Method 04/29/22 07:06 BMI result Body Mass Index 28.1 <Crystal Hernandez PA-C - Last Filed: 04/29/22 08:26> Const: General: comfortable, no acute distress and alert <Crystal Hernandez PA-C - Last Filed: 04/29/22 08:26> Orientation/consciousness: patient oriented x3 <GEOVANY Swanson Last Filed: 04/29/22 08:26> Resp: Effort & Inspection: normal respiratory effort <Crystal Hernandez PA-C - Last Filed: 04/29/22 08:26> Cardio: Rate: regular rate <Crystal Hernandez PA-C - Last Filed: 04/29/22 08:26> GI: Inspection: Yes distended <GEOVANY Swanson Last Filed: 04/29/22 08:26> Palpation (GI): Soft to palpation, Tenderness to palpation present (GI) (mild diffuse), no guarding and not rigid <GEOVANY Swanson Last Filed: 04/29/22 08:26> Percussion: Yes tympanic to percussion <GEOVANY Swanson Last Filed: 04/29/22 08:26> Rectal Exam - Male: Yes other (performed by Dr. Fam, no stool or lesions palpated) <Crystal Hernandez PA-C - Last Filed: 04/29/22 08:26> Skin: General skin exam: no rashes or lesions noted <Crystal Hernandez PA-C - Last Filed: 04/29/22 08:26> Neuro: General: patient oriented x3 and moves all extremities <Crystal Hernandez PA-C - Last Filed: 04/29/22 08:26> Objective Data Active Medications Amlodipine Besylate (Amlodipine Besylate 10 Mg Tablet) 10 mg PO DAILY [facility]; Protocol Last Admin: 04/28/22 17:36 Dose: 10 mg Documented By: ELENA Benzocaine (Throat Lozenge, Medicated Lozenge) 1 lozenge MUCOUS MEM RQ4H PRN PRN Reason: Sore Throat Dextrose (Dextrose 50 % 25 Gm/50 Ml Syringe) 25 gm IVPUSH Q15M PRN; Protocol PRN Reason: per Hypoglycemia Standing Ord. Glucose (Glucose Gel 15 Gm Gel..Gram.) 15 gm PO Q15M PRN; Protocol PRN Reason: per Hypoglycemia Standing Ord. Sodium Chloride (Ns) 1,000 mls @ 100 mls/hr IVCONT .Q10H [facility] Last Admin: 04/29/22 06:15 Dose: 100 mls/hr Documented By: BENITA Insulin Human Lispro (Insulin Lispro 100 Unit/Ml 3 Ml Vial) 0 unit SUBCUT Q6H SOFIA; Protocol Last Admin: 04/29/22 05:35 Dose: Not Given Documented By: BENITA Non-Admin Reason: No Insulin Coverage Lisinopril (Lisinopril 20 Mg Tablet) 20 mg PO DAILY [facility]; Protocol Last Admin: 04/28/22 11:58 Dose: Not Given Documented By: ELENA Non-Admin Reason: Physician Approved Morphine Sulfate (Morphine Sulfate 4 Mg/Ml Cartridge) 4 mg IVPUSH RQ4H PRN; Protocol PRN Reason: Pain, Severe (Pain Scale 7-10) Last Admin: 04/28/22 22:41 Dose: 4 mg Documented By: BENITA Ondansetron HCl (Ondansetron Hcl 4 Mg/2 Ml Vial) 4 mg IVPUSH RQ6H PRN PRN Reason: Nausea and Vomiting Pantoprazole Sodium (Pantoprazole Sodium 40 Mg/10 Ml Vial) 40 mg IVPUSH DAILY@0630 [facility] Last Admin: 04/29/22 05:22 Dose: 40 mg Documented By: BENITA Pharmacy Consult (Consult Rx Perform Med Rec) 1 each MISCELLANE ONCE PRN PRN Reason: Consult order Sodium Chloride (0.9 % Sodium Chloride Flush 3 Ml Syringe) 3 ml IVFLUSH QSHIFT [facility] Last Admin: 04/28/22 23:39 Dose: Not Given Documented By: BENITA Non-Admin Reason: IV Running <Crystal Hernandez PA-C - Last Filed: 04/29/22 08:26> Labs CBC & Chem 7: : 04/29/22 05:10 04/29/22 05:10 <Crystal Hernandez PA-C - Last Filed: 04/29/22 08:26> Labs: Laboratory Results - last 24 hr 04/28/22 04/28/22 04/28/22 11:18 16:09 20:01 MCV MCH MCHC RDW Plt Count MPV Absolute Nucleated RBC Nucleated RBC % (auto) Anion Gap Estim Creat Clear Calc Estimated GFR POC Glucose 139 H 142 H 134 H Random Glucose Calcium Magnesium 04/29/22 04/29/22 04/29/22 05:10 05:10 05:26 MCV 81.7 MCH 26.1 L MCHC 31.9 RDW 13.3 Plt Count 232 MPV 10.0 Absolute Nucleated RBC 0.000 Nucleated RBC % (auto) 0.0 Anion Gap 18 Estim Creat Clear Calc 81.4 Estimated GFR > 60 POC Glucose 145 H Random Glucose 128 H Calcium 8.1 L Magnesium 2.0 <Crystal Hernandez PA-C - Last Filed: 04/29/22 08:26> Microbiology Microbiology Results: Microbiology 04/26/22 17:27 Blood Culture - Preliminary Blood - Venous No growth after 48 hours. 04/26/22 17:21 Blood Culture - Preliminary Blood - Venous No growth after 48 hours. <Crystal Hernandez PA-C - Last Filed: 04/29/22 08:26> Procedures Date of Service Date of Service: 04/29/22 <Crystal Hernandez PA-C - Last Filed: 04/29/22 08:26> Progress Note: A&P Assessment and plan (1) Bowel obstruction: Status: Acute <Crystal Hernandez PA-C - Last Filed: 04/29/22 08:26> Assessment and Plan: Patient remains distended Says he passes amounts of flatus but no stool Repeat CT with oral Gastrografin yesterday showing diffusely dilated bowel loops, all the way to the colon with no transition point seen Rectal exam done - rectal vault empty but with gas Patient has not really demonstrated significant improvement Remains distended although without any guarding or rebound Had a long discussion with patient and his Arin at bedside this morning He has had this problem for more than 3 weeks now without any significant change In view marked small bowel distension, I told him that it may be best to proceed with exploration to rule out any occult mass or point of obstruction We may need to do bowel resection or even just a stoma decompress I explained the technique of this procedure and I reviewed the risks including but not limited to bleeding, infections, bowel injury, staple line leak, injury to other organs inside the abdomen, blood clots, pneumonia, strokes MA I have explained the possibility of stoma and reviewed postop care with this The patient and his Arin had agreed to proceed Will do laparotomy today <Darion Fam MD - Last Filed: 04/29/22 12:54> Assessment and Plan: 71 year old male admitted with SBO of unknown etiology. CT with contrast yesterday revealed diffuse small bowel dilatation all the way to the colon, no obvious identifiable transition point. He is softer this morning but remains distended. Rectal vault empty and no lesions palpated. Will continue nonopera tive measures for now. May need exploration if no further improvement with ?ostomy or decompression of SB if no pathology found. Encouraged to ambulate the halls multiple times today. Patient understands plan. <Crystal Hernandez PA-C - Last Filed: 04/29/22 08:26> Time Spent With Patient Time: Total time managing care of this patient today ____ minutes. <Crystal Hernandez PA-C - Last Filed: 04/29/22 08:26> Quality Stroke Does the patient have a stroke diagnosis?: No <Crystal Hernandez PA-C - Last Filed: 04/29/22 08:26> VTE Prior VTE?: No <Crystal Hernandez PA-C - Last Filed: 04/29/22 08:26> VTE Risk Level:: Surgical - low <GEOVANY Swanson Last Filed: 04/29/22 08:26> VTE Device Contraindication: N/A - Device Ordered <GEOVANY Swanson Last Filed: 04/29/22 08:26> VTE Drug Contraindication: Treatment Not Indicated <GEOVANY Swanson Last Filed: 04/29/22 08:26>
--- NOTE | 2022-04-29 09:34 | HO.ANESPROP2 ---
HPI - Anesthesia Eval Consult details Narrative: Exploratory laparotomy PMFSH Active Problems Active Problems: All Active Problems (Updated 04/26/22 @ 17:49 by KOLBY Alford) Bowel obstruction (Acute) Abdominal pain (Acute) Right cervical radiculopathy (Acute) Screening for prostate cancer (Acute) Benign essential hypertension (Acute) Overweight (BMI 25.0-29.9) (Acute) Encounter for Medicare annual wellness exam (Acute) Vitamin D deficiency (Acute) Diabetes mellitus (Acute) Pure hypercholesterolemia (Acute) Past Medical History Medical History Benign essential hypertension Diabetes mellitus Overweight (BMI 25.0-29.9) Pure hypercholesterolemia Syncope Vitamin D deficiency Family History Family History Father Hypertension Diabetes Mother Diabetes Hypertension Family history of problems with anesthesia: No Surgical History Surgical History History of colonoscopy History of Problems with Anesthesia: No Social History Social History Household Members: Spouse Housing: House Do you presently have visiting nurse or other home services: No Alcohol intake: never Patient Tobacco Use Status: Never used Tobacco e-Cigarette/Vaping Use: Never Used Second Hand Smoke Exposure: Yes Advance Directives Date on File: 12/24/21 service: No Current occupational status: retired Cognitive needs: No Hearing needs: No Vision needs: Yes Meds Allergies Allergy/AdvReac Type Severity Reaction Status Date / Time No Known Allergies Allergy Verified 04/25/22 17:01 [No Known Allergies*] Active Medications: Current Medications Amlodipine Besylate (Amlodipine Besylate 10 Mg Tablet) 10 mg PO DAILY SOFIA; Protocol Last Admin: 04/28/22 17:36 Dose: 10 mg Benzocaine (Throat Lozenge, Medicated Lozenge) 1 lozenge MUCOUS MEM RQ4H PRN PRN Reason: Sore Throat Dextrose (Dextrose 50 % 25 Gm/50 Ml Syringe) 25 gm IVPUSH Q15M PRN; Protocol PRN Reason: per Hypoglycemia Standing Ord. Glucose (Glucose Gel 15 Gm Gel..Gram.) 15 gm PO Q15M PRN; Protocol PRN Reason: per Hypoglycemia Standing Ord. Sodium Chloride (Ns) 1,000 mls @ 100 mls/hr IVCONT .Q10H [facility] Last Admin: 04/29/22 06:15 Dose: 100 mls/hr Cefazolin Sodium/Dextrose (Ancef) 2 gm in 50 mls @ 100 mls/hr IV PREOP ONE Stop: 04/29/22 09:35 Insulin Human Lispro (Insulin Lispro 100 Unit/Ml 3 Ml Vial) 0 unit SUBCUT Q6H [facility]; Protocol Last Admin: 04/29/22 05:35 Dose: Not Given Lisinopril (Lisinopril 20 Mg Tablet) 20 mg PO DAILY [facility]; Protocol Last Admin: 04/28/22 11:58 Dose: Not Given Morphine Sulfate (Morphine Sulfate 4 Mg/Ml Cartridge) 4 mg IVPUSH RQ4H PRN; Protocol PRN Reason: Pain, Severe (Pain Scale 7-10) Last Admin: 04/28/22 22:41 Dose: 4 mg Ondansetron HCl (Ondansetron Hcl 4 Mg/2 Ml Vial) 4 mg IVPUSH RQ6H PRN PRN Reason: Nausea and Vomiting Pantoprazole Sodium (Pantoprazole Sodium 40 Mg/10 Ml Vial) 40 mg IVPUSH DAILY@0630 [facility] Last Admin: 04/29/22 05:22 Dose: 40 mg Pharmacy Consult (Consult Rx Perform Med Rec) 1 each MISCELLANE ONCE PRN PRN Reason: Consult order Sodium Chloride (0.9 % Sodium Chloride Flush 3 Ml Syringe) 3 ml IVFLUSH QSHIFT [facility] Last Admin: 04/29/22 09:18 Dose: Not Given Home Medications Medication Instructions Recorded Confirmed Last Taken Type cholecalciferol (vitamin D3) 25 25 mcg PO DAILY 03/10/20 04/26/22 04/26/22 History mcg (1,000 unit) capsule cetirizine 10 mg tablet 10 mg PO DAILY 04/26/22 04/26/22 04/25/22 History multivitamin 1 tab PO DAILY 04/26/22 04/26/22 04/25/22 History Exam Exam Date and Time: April 29, 2022 0934 Height,Weight and Vital Signs: Height 5 ft 4 in Weight 74.389 kg Last Vital Signs Temp 97.9 F 04/29/22 07:06 Pulse 83 04/29/22 07:06 Resp 18 04/29/22 07:06 BP 158/72 H 04/29/22 07:06 Pulse Ox 94 04/29/22 07:06 O2 Del Method 04/29/22 07:06 Pertinent Lab Results Pertinent Lab Results: Laboratory Tests 04/26/22 04/26/22 04/26/22 14:36 14:36 14:36 WBC 12.9 H RBC 5.62 Hgb 14.6 Hct 44.7 MCV 79.5 L MCH 26.0 L MCHC 32.7 RDW 12.9 Plt Count 275 MPV 9.8 Immature Gran % (Auto) 0.2 Neut % (Auto) 80.5 H Lymph % (Auto) 7.6 L [place] % (Auto) 11.4 H Eos % (Auto) 0.1 Baso % (Auto) 0.2 Lymph # (Auto) 1.0 L [place] # (Auto) 1.5 H Eos # (Auto) 0.0 Baso # (Auto) 0.0 Abs Immat Gran (auto) 0.03 Absolute Neuts (auto) 10.3 H Absolute Nucleated RBC 0.000 Nucleated RBC % (auto) 0.0 Neutrophils % (Manual) Band Neutrophils % Lymphocytes % (Manual) Monocytes % (Manual) Basophils % (Manual) Abs Neuts (Manual) Lymphocytes # (Manual) Monocytes # (Manual) Basophils # (Manual) Toxic Vacuolation Platelet Estimate Plt Morphology Comment RBC Morphology Polychromasia Microcytosis Mai Cells ESR PT 16.1 H INR 1.4 H Sodium 139 Potassium 4.0 Chloride 98 Carbon Dioxide 28 Anion Gap 17 BUN 30 H Creatinine 1.19 Estim Creat Clear Calc 54.0 Estimated GFR > 60 POC Glucose Random Glucose 195 H Lactic Acid Calcium 9.2 Magnesium 2.5 Total Bilirubin 0.8 AST 17 ALT 40 Alkaline Phosphatase 83 C-Reactive Protein Total Protein 6.9 Albumin 4.3 Lipase 10 Carcinoembryonic Ag Urine Color Urine Appearance Urine pH Ur Specific [place] Urine Protein Urine Glucose (UA) Urine Ketones Urine Blood Urine Nitrite Ur Leukocyte Esterase Urine RBC Urine WBC Ur Squamous Epith Cells Urine Bacteria Hyaline Casts Influenza Type A (PCR) Influenza Type B (PCR) RSV RNA Qual (PCR) SARS-CoV-2 RNA (RT-PCR) Blood Type Antibody Screen 04/26/22 04/26/22 04/26/22 14:36 17:21 17:22 WBC RBC Hgb Hct MCV MCH MCHC RDW Plt Count MPV Immature Gran % (Auto) Neut % (Auto) Lymph % (Auto) [place] % (Auto) Eos % (Auto) Baso % (Auto) Lymph # (Auto) [place] # (Auto) Eos # (Auto) Baso # (Auto) Abs Immat Gran (auto) Absolute Neuts (auto) Absolute Nucleated RBC Nucleated RBC % (auto) Neutrophils % (Manual) Band Neutrophils % Lymphocytes % (Manual) Monocytes % (Manual) Basophils % (Manual) Abs Neuts (Manual) Lymphocytes # (Manual) Monocytes # (Manual) Basophils # (Manual) Toxic Vacuolation Platelet Estimate Plt Morphology Comment RBC Morphology Polychromasia Microcytosis Mai Cells ESR 7 PT INR Sodium Potassium Chloride Carbon Dioxide Anion Gap BUN Creatinine Estim Creat Clear Calc Estimated GFR POC Glucose Random Glucose Lactic Acid Calcium Magnesium Total Bilirubin AST ALT Alkaline Phosphatase C-Reactive Protein Total Protein Albumin Lipase Carcinoembryonic Ag Urine Color Dark Yellow Urine Appearance Clear Urine pH 5.0 Ur Specific [place] >= 1.030 H Urine Protein 100 (2+) H Urine Glucose (UA) Negative Urine Ketones 15 Urine Blood Negative Urine Nitrite Negative Ur Leukocyte Esterase Negative Urine RBC 0-2 Urine WBC 0-5 Ur Squamous Epith Cells 0-2 Urine Bacteria None Seen Hyaline Casts 0-2 Influenza Type A (PCR) NEGATIVE Influenza Type B (PCR) NEGATIVE RSV RNA Qual (PCR) NEGATIVE SARS-CoV-2 RNA (RT-PCR) NEGATIVE Blood Type Antibody Screen 04/26/22 04/26/22 04/26/22 17:22 17:22 17:28 WBC RBC Hgb Hct MCV MCH MCHC RDW Plt Count MPV Immature Gran % (Auto) Neut % (Auto) Lymph % (Auto) [place] % (Auto) Eos % (Auto) Baso % (Auto) Lymph # (Auto) [place] # (Auto) Eos # (Auto) Baso # (Auto) Abs Immat Gran (auto) Absolute Neuts (auto) Absolute Nucleated RBC Nucleated RBC % (auto) Neutrophils % (Manual) Band Neutrophils % Lymphocytes % (Manual) Monocytes % (Manual) Basophils % (Manual) Abs Neuts (Manual) Lymphocytes # (Manual) Monocytes # (Manual) Basophils # (Manual) Toxic Vacuolation Platelet Estimate Plt Morphology Comment RBC Morphology Polychromasia Microcytosis Mai Cells ESR PT INR Sodium Potassium Chloride Carbon Dioxide Anion Gap BUN Creatinine Estim Creat Clear Calc Estimated GFR POC Glucose Random Glucose Lactic Acid 1.2 Calcium Magnesium Total Bilirubin AST ALT Alkaline Phosphatase C-Reactive Protein 14.91 H Total Protein Albumin Lipase Carcinoembryonic Ag Urine Color Urine Appearance Urine pH Ur Specific [place] Urine Protein Urine Glucose (UA) Urine Ketones Urine Blood Urine Nitrite Ur Leukocyte Esterase Urine RBC Urine WBC Ur Squamous Epith Cells Urine Bacteria Hyaline Casts Influenza Type A (PCR) Influenza Type B (PCR) RSV RNA Qual (PCR) SARS-CoV-2 RNA (RT-PCR) Blood Type A Positive Antibody Screen NEGATIVE 04/26/22 04/27/22 04/27/22 21:12 06:24 07:16 WBC 9.7 RBC 5.04 Hgb 13.3 L Hct 41.0 L MCV 81.3 MCH 26.4 L MCHC 32.4 RDW 13.1 Plt Count 256 MPV 10.2 Immature Gran % (Auto) Cancelled Neut % (Auto) Cancelled Lymph % (Auto) Cancelled [place] % (Auto) Cancelled Eos % (Auto) Cancelled Baso % (Auto) Cancelled Lymph # (Auto) Cancelled [place] # (Auto) Cancelled Eos # (Auto) Cancelled Baso # (Auto) Cancelled Abs Immat Gran (auto) Cancelled Absolute Neuts (auto) Cancelled Absolute Nucleated RBC 0.000 Nucleated RBC % (auto) 0.0 Neutrophils % (Manual) 61 Band Neutrophils % 16 H Lymphocytes % (Manual) 7 L Monocytes % (Manual) 15 H Basophils % (Manual) 1 Abs Neuts (Manual) 7.5 Lymphocytes # (Manual) 0.7 L Monocytes # (Manual) 1.5 H Basophils # (Manual) 0.1 Toxic Vacuolation PRESENT Platelet Estimate NORMAL Plt Morphology Comment NORMAL RBC Morphology NOTED Polychromasia 1+ (0-2) Microcytosis 1+ (5-14) Mai Cells 1+ (0-2) ESR PT INR Sodium Potassium Chloride Carbon Dioxide Anion Gap BUN Creatinine Estim Creat Clear Calc Estimated GFR POC Glucose 145 H 163 H Random Glucose Lactic Acid Calcium Magnesium Total Bilirubin AST ALT Alkaline Phosphatase C-Reactive Protein Total Protein Albumin Lipase Carcinoembryonic Ag Urine Color Urine Appearance Urine pH Ur Specific [place] Urine Protein Urine Glucose (UA) Urine Ketones Urine Blood Urine Nitrite Ur Leukocyte Esterase Urine RBC Urine WBC Ur Squamous Epith Cells Urine Bacteria Hyaline Casts Influenza Type A (PCR) Influenza Type B (PCR) RSV RNA Qual (PCR) SARS-CoV-2 RNA (RT-PCR) Blood Type Antibody Screen 04/27/22 04/27/22 04/27/22 07:16 07:16 14:15 WBC RBC Hgb Hct MCV MCH MCHC RDW Plt Count MPV Immature Gran % (Auto) Neut % (Auto) Lymph % (Auto) [place] % (Auto) Eos % (Auto) Baso % (Auto) Lymph # (Auto) [place] # (Auto) Eos # (Auto) Baso # (Auto) Abs Immat Gran (auto) Absolute Neuts (auto) Absolute Nucleated RBC Nucleated RBC % (auto) Neutrophils % (Manual) Band Neutrophils % Lymphocytes % (Manual) Monocytes % (Manual) Basophils % (Manual) Abs Neuts (Manual) Lymphocytes # (Manual) Monocytes # (Manual) Basophils # (Manual) Toxic Vacuolation Platelet Estimate Plt Morphology Comment RBC Morphology Polychromasia Microcytosis Mai Cells ESR PT INR Sodium 141 Potassium 4.5 Chloride 103 Carbon Dioxide 25 Anion Gap 18 BUN 31 H D Creatinine 1.10 Estim Creat Clear Calc 58.5 Estimated GFR > 60 POC Glucose 158 H Random Glucose 171 H Lactic Acid Calcium 8.5 D Magnesium Total Bilirubin AST ALT Alkaline Phosphatase C-Reactive Protein Total Protein Albumin Lipase Carcinoembryonic Ag 2.50 Urine Color Urine Appearance Urine pH Ur Specific [place] Urine Protein Urine Glucose (UA) Urine Ketones Urine Blood Urine Nitrite Ur Leukocyte Esterase Urine RBC Urine WBC Ur Squamous Epith Cells Urine Bacteria Hyaline Casts Influenza Type A (PCR) Influenza Type B (PCR) RSV RNA Qual (PCR) SARS-CoV-2 RNA (RT-PCR) Blood Type Antibody Screen 04/27/22 04/28/22 04/28/22 17:59 00:49 05:18 WBC RBC Hgb Hct MCV MCH MCHC RDW Plt Count MPV Immature Gran % (Auto) Neut % (Auto) Lymph % (Auto) [place] % (Auto) Eos % (Auto) Baso % (Auto) Lymph # (Auto) [place] # (Auto) Eos # (Auto) Baso # (Auto) Abs Immat Gran (auto) Absolute Neuts (auto) Absolute Nucleated RBC Nucleated RBC % (auto) Neutrophils % (Manual) Band Neutrophils % Lymphocytes % (Manual) Monocytes % (Manual) Basophils % (Manual) Abs Neuts (Manual) Lymphocytes # (Manual) Monocytes # (Manual) Basophils # (Manual) Toxic Vacuolation Platelet Estimate Plt Morphology Comment RBC Morphology Polychromasia Microcytosis [place] Cells ESR PT INR Sodium Potassium Chloride Carbon Dioxide Anion Gap BUN Creatinine Estim Creat Clear Calc Estimated GFR POC Glucose 186 H 135 H 150 H Random Glucose Lactic Acid Calcium Magnesium Total Bilirubin AST ALT Alkaline Phosphatase C-Reactive Protein Total Protein Albumin Lipase Carcinoembryonic Ag Urine Color Urine Appearance Urine pH Ur Specific [place] Urine Protein Urine Glucose (UA) Urine Ketones Urine Blood Urine Nitrite Ur Leukocyte Esterase Urine RBC Urine WBC Ur Squamous Epith Cells Urine Bacteria Hyaline Casts Influenza Type A (PCR) Influenza Type B (PCR) RSV RNA Qual (PCR) SARS-CoV-2 RNA (RT-PCR) Blood Type Antibody Screen 04/28/22 04/28/22 04/28/22 05:19 07:37 11:18 WBC RBC Hgb Hct MCV MCH MCHC RDW Plt Count MPV Immature Gran % (Auto) Neut % (Auto) Lymph % (Auto) [place] % (Auto) Eos % (Auto) Baso % (Auto) Lymph # (Auto) [place] # (Auto) Eos # (Auto) Baso # (Auto) Abs Immat Gran (auto) Absolute Neuts (auto) Absolute Nucleated RBC Nucleated RBC % (auto) Neutrophils % (Manual) Band Neutrophils % Lymphocytes % (Manual) Monocytes % (Manual) Basophils % (Manual) Abs Neuts (Manual) Lymphocytes # (Manual) Monocytes # (Manual) Basophils # (Manual) Toxic Vacuolation Platelet Estimate Plt Morphology Comment RBC Morphology Polychromasia Microcytosis Mai Cells ESR PT INR Sodium 144 Potassium 4.0 Chloride 111 H Carbon Dioxide 23 Anion Gap 14 BUN 27 H Creatinine 0.85 Estim Creat Clear Calc 75.7 Estimated GFR > 60 POC Glucose 155 H 139 H Random Glucose 146 H Lactic Acid Calcium 8.3 L Magnesium Total Bilirubin AST ALT Alkaline Phosphatase C-Reactive Protein Total Protein Albumin Lipase Carcinoembryonic Ag Urine Color Urine Appearance Urine pH Ur Specific [place] Urine Protein Urine Glucose (UA) Urine Ketones Urine Blood Urine Nitrite Ur Leukocyte Esterase Urine RBC Urine WBC Ur Squamous Epith Cells Urine Bacteria Hyaline Casts Influenza Type A (PCR) Influenza Type B (PCR) RSV RNA Qual (PCR) SARS-CoV-2 RNA (RT-PCR) Blood Type Antibody Screen 04/28/22 04/28/22 04/29/22 16:09 20:01 05:10 WBC 14.5 H RBC 4.87 Hgb 12.7 L Hct 39.8 L MCV 81.7 MCH 26.1 L MCHC 31.9 RDW 13.3 Plt Count 232 MPV 10.0 Immature Gran % (Auto) Neut % (Auto) Lymph % (Auto) [place] % (Auto) Eos % (Auto) Baso % (Auto) Lymph # (Auto) [place] # (Auto) Eos # (Auto) Baso # (Auto) Abs Immat Gran (auto) Absolute Neuts (auto) Absolute Nucleated RBC 0.000 Nucleated RBC % (auto) 0.0 Neutrophils % (Manual) Band Neutrophils % Lymphocytes % (Manual) Monocytes % (Manual) Basophils % (Manual) Abs Neuts (Manual) Lymphocytes # (Manual) Monocytes # (Manual) Basophils # (Manual) Toxic Vacuolation Platelet Estimate Plt Morphology Comment RBC Morphology Polychromasia Microcytosis [place] Cells ESR PT INR Sodium Potassium Chloride Carbon Dioxide Anion Gap BUN Creatinine Estim Creat Clear Calc Estimated GFR POC Glucose 142 H 134 H Random Glucose Lactic Acid Calcium Magnesium Total Bilirubin AST ALT Alkaline Phosphatase C-Reactive Protein Total Protein Albumin Lipase Carcinoembryonic Ag Urine Color Urine Appearance Urine pH Ur Specific [place] Urine Protein Urine Glucose (UA) Urine Ketones Urine Blood Urine Nitrite Ur Leukocyte Esterase Urine RBC Urine WBC Ur Squamous Epith Cells Urine Bacteria Hyaline Casts Influenza Type A (PCR) Influenza Type B (PCR) RSV RNA Qual (PCR) SARS-CoV-2 RNA (RT-PCR) Blood Type Antibody Screen 04/29/22 04/29/22 05:10 05:26 WBC RBC Hgb Hct MCV MCH MCHC RDW Plt Count MPV Immature Gran % (Auto) Neut % (Auto) Lymph % (Auto) [place] % (Auto) Eos % (Auto) Baso % (Auto) Lymph # (Auto) [place] # (Auto) Eos # (Auto) Baso # (Auto) Abs Immat Gran (auto) Absolute Neuts (auto) Absolute Nucleated RBC Nucleated RBC % (auto) Neutrophils % (Manual) Band Neutrophils % Lymphocytes % (Manual) Monocytes % (Manual) Basophils % (Manual) Abs Neuts (Manual) Lymphocytes # (Manual) Monocytes # (Manual) Basophils # (Manual) Toxic Vacuolation Platelet Estimate Plt Morphology Comment RBC Morphology Polychromasia Microcytosis Mai Cells ESR PT INR Sodium 144 Potassium 4.1 Chloride 111 H Carbon Dioxide 19 L Anion Gap 18 BUN 22 H Creatinine 0.79 Estim Creat Clear Calc 81.4 Estimated GFR > 60 POC Glucose 145 H Random Glucose 128 H Lactic Acid Calcium 8.1 L Magnesium 2.0 Total Bilirubin AST ALT Alkaline Phosphatase C-Reactive Protein Total Protein Albumin Lipase Carcinoembryonic Ag Urine Color Urine Appearance Urine pH Ur Specific [place] Urine Protein Urine Glucose (UA) Urine Ketones Urine Blood Urine Nitrite Ur Leukocyte Esterase Urine RBC Urine WBC Ur Squamous Epith Cells Urine Bacteria Hyaline Casts Influenza Type A (PCR) Influenza Type B (PCR) RSV RNA Qual (PCR) SARS-CoV-2 RNA (RT-PCR) Blood Type Antibody Screen Airway Mallampati Class: II TM Dist: >3cm Neck ROM: Full Heart: ok Lungs: ok Assessment and Plan Assessment Anesthesia Assessment: Anesthesia Plan Discussed and Chart Reviewed Final Anesthetic Review Family History of Problems with Anesthesia: No History of Problems with Anesthesia: No NPO: Yes ASA Class: III and Emergency Final Preanesthetic Review: No Changes in Pt Med Stat, Meds/Allgs Chart Reviewed, Consent Obtained/Reviewed and Anes Risks/Benef Reviewed Patient Risk: High Procedure Risk: Intermediate Anesthetic Plan Anesthetic Plan: GA and Agree w/ Assess. and Plan Disposition: Standard PACU
[2022-04-29 10:02] LABS: Glucose, Whole Blood 141 mg/dL (60-115)
--- NOTE | 2022-04-29 12:37 | W.PM.OPN ---
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 There was still significant air distal to the stricture in the distal transverse colon. There was erythema of the proximal source: From distension. The small bowels also diffusely erythematous from prolonged distension. There was no obstruction of the small bowel seen. There was note of some unavoidable spillage of liquid stool and contrast during the anastomosis of the transverse colon due to the marked distention with the lumen filled up with liquid stool proximally. The patient is a 71-year-old male who has had some distension vomiting for about 3 weeks now. He has had an NG tube for the past 3 days without any significant improvement. Repeat CT scan with oral contrast yesterday showing persistent dilatation of the small bowel as well as the colon out any obvious cut off. The right colon appeared to be more distended than the rest of the colon however. In view of nonimprovement, with persistent marked dilatation of the small bowel, explained to him that the best to proceed with exploration to at least be able to decompress dilated bowel. He understood the technique of the planned procedure as well as the risks, benefits, and alternatives . He was brought to the operating room and placed supine under general anesthesia via endotracheal tube. A Collins catheter was inserted. The abdomen is prepped and draped in the usual sterile fashion. A surgical time-out was done. The patient received Cefotan 2 g IV preoperatively. A laparotomy incision made on the midline using blade 10. And this was carried down through the full-thickness of the skin subcutaneous fat down to the fascia. The fascia was incised. The peritoneum was entered. There was no free fluid noted. Examination of the viscera showed diffuse dilatation of the small bowel all the to the terminal ileum. The right colon was distended all the way to the proximal transverse. Transverse colon was I will tortuous. At this point the Book[place]ter retractors were placed to allow better visualization. I was able to visualize the the left colon and sigmoid and there was no obvious masses. I palpated for the rectum. There was no mass in the pelvis and the rectum felt supple. The omentum was stuck to the transverse colon in between the tortuous loops. I had to divide and lyse this with electrocautery and LigaSure. By doing so was able to visualize the entire transverse colon. I was able to see a stricture with adhesions in the proximal transverse colon. The transverse colon was very dilated proximal to this. The distal transverse colon was of normal caliber was full of air as well. This suggested that there was still the presence of a patent lumen within the stricture, but this obviously was causing some significant degree of obstruction. I other expose the transverse colon be able to care for resection of this short segment and anastomosis. I had to therefore separate this area from the rest of the omentum. This was achieved with electrocautery and LigaSure. I then created a mesenteric defect proximal to this stricture. I divided this with the GINA 80 mm stapler. I divided the transverse colon distal to the stricture with a GINA 80 mm stapler as well. I resected the attached mesentery using 0 ligation with the LigaSure. This short segment of stricture was sent as a specimen. There was no palpable mass surrounding this. This stricture appeared to be an inflammatory process. I then proceeded to do our anastomosis. I opened up the apex of each staple line. I aligned both proximal and distal limbs together. There was some spillage of liquid stool as we opened the apex of the staple line proximally. This was unavoidable in view of the marked distension with the earlier obstruction. There was note of significant discrepancy in the of the proximal and distal limbs. I used the GINA 60 mm stapler to do our [id number] anastomosis. I completed the anastomosis by closing the enterotomy with a TA 60 mm stapler. I visualized the staple lines and these were all intact without any obvious leak. The anastomosis appeared viable and not ischemic at the end. In view of the marked edema and erythema of the proximal transverse colon along with the discrepancy in her, I decided to protect this with a diverting loop ileostomy. I identified the terminal ileum. I chose a segment just proximal to this and created a mesenteric defect. I excised the discoid piece of skin on the right lower quadrant which had been earlier marked using a blade 10. I used electrocautery to divide through the subcutaneous fat and incised the anterior sheath. I used muscle splitting on the rectus and divided the posterior sheath. I dilated this opening. Used a Ridge drain to pull up the segment of the distal ileum through the mesenteric defect. This was brought out through our small opening. I then removed the [place] drain applied a stoma bridge. I matured the loop ileostomy by opening the anterior wall with electrocautery. I applied Dexon 3-0 sutures full-thickness of the wall of the small bowel to the subdermal layer circumferentially to mature our loop ileostomy. We then used the suction catheter to further suction out contents from the proximal limb to decompress the small bowel. By doing so, we seemed to have traumatized the mucosa and this appeared very edematous and erythematous at the end. This ileostomy loop however viable. We had copiously irrigated the area of the anastomosis on the upper abdomen because of some spillage of liquid stool during the creation of the anastomosis. After copious irrigation, hemostasis was observed. We closed the fascia with running PDS 1 loop suture. The subcutaneous layer was irrigated. Skin closure was achieved with skin sindy. The incisions were infiltrated with Marcaine 0.5% for postop analgesia. The stoma appliance and dressings were applied. The procedure was completed. The patient tolerated procedure well. There were no immediate complications. Initial and final counts of sponges and instruments were correct. Blood loss was about 50 cc. The patient was extubated without difficulty and transferred to the recovery room with stable vital signs.
--- NOTE | 2022-04-29 12:38 | PM.OP ---
Brief Operative Note Date of Service: 04/29/22 <Crystal Hernandez PA-C - Last Filed: 04/29/22 12:39> Pre-op diagnosis: bowel obstruction <GEOVANY Swanson Last Filed: 04/29/22 12:39> Post-op diagnosis: same (stricture of transverse colon) <Crystal Hernandez PA-C - Last Filed: 04/29/22 12:39> Procedure: ex lap, resection of transverse colon stricture, loop ileostomy <Crystal Hernandez PA-C - Last Filed: 04/29/22 12:39> Surgeon: ANNA FAM MD <Crystal Hernandez PA-C - Last Filed: 04/29/22 12:39> Anesthesia: GETA <Crystal Hernandez PA-C - Last Filed: 04/29/22 12:39> Was an Configuration Management Consultant used for this Procedure?: Yes <Crystal Hernandez PA-C - Last Filed: 04/29/22 12:39> No <Anna Fam MD - Last Filed: 04/29/22 15:33> Configuration Management Consultant: Crystal Hernandez <Crystal Hernandez PA-C - Last Filed: 04/29/22 12:39> Estimated blood loss (mL): 50 <Crystal Hernandez PA-C - Last Filed: 04/29/22 12:39> IV fluids (mL): 3,000 <GEOVANY Swanson Last Filed: 04/29/22 12:39> Urine output (mL): 300 <GEOVANY Swanson Last Filed: 04/29/22 12:39> Pathology: other (TRANSVERSE COLON) <GEOVANY Swanson Last Filed: 04/29/22 12:39> Condition: stable <GEOVANY Swanson Last Filed: 04/29/22 12:39> Disposition: PACU <GEOVANY Swanson Last Filed: 04/29/22 12:39>
[2022-04-29 14:22] LABS: Glucose, Whole Blood 160 mg/dL (60-115)
--- NOTE | 2022-04-29 15:33 | PM.EVENT ---
Event Note Date of Service: 04/29/22 Event Note: Seen postop Underwent laparotomy, resection of short segment of transverse colon stricture, diverting loop ileostomy Appears to have adequate pain control Good urine output Abdomen soft Stable vital signs Continue IV fluids Collins catheter in place Pain management Family at bedside - updated Incentive spirometry Time Spent With Patient Time: Total time managing care of this patient today ____ minutes.
[2022-04-29 16:03] LABS: Glucose, Whole Blood 157 mg/dL (60-115)
[2022-04-29] MEDS: Acetaminophen 1,000 MG/100 ML PIGGYBACK 400 MG IV ×2 (17:36→22:49)
[2022-04-29 20:52] LABS: Glucose, Whole Blood 139 mg/dL (60-115)
[2022-04-30 03:38] VITALS: BP 127/76; PULSE 98; RESP 18; TEMP 37; O2SAT 96
[2022-04-30] MEDS: Acetaminophen 1,000 MG/100 ML PIGGYBACK 400 MG IV ×4 (05:16→22:55)
[2022-04-30 05:32] LABS: Glucose, Whole Blood 162 mg/dL (60-115)
[2022-04-30 06:21] LABS: Hemoglobin 13.8 g/dl (14.0-18.0); Mean Corpuscular HGB Conc 32.1 g/dl (31.0-36.0); Mean Corpuscular Hemoglobin 26.3 pg (27.0-33.0); Mean Corpuscular Volume 81.9 fL (80.0-98.0); Mean Platelet Volume 10.2 fL (9.4-12.4); Platelet Count 250 X10*3/uL (160-400); Red Blood Count 5.25 X10*6/uL (4.60-5.80); Red Cell Distribution Width 13.6 % (11.0-16.0); White Blood Count 12.4 X10*3/uL (4.8-10.8)
[2022-04-30 06:31] LABS: Anion Gap 18 (12-20); Blood Urea Nitrogen 23 mg/dL (9-16); Calcium 7.7 mg/dL (8.4-10.2); Carbon Dioxide 18 mmol/L (22-29); Chloride 113 mmol/L (96-108); Creatinine Clr Calc Pharmacy 58.5; Estimated Glomerular Filt Rate > 60; Glucose Fasting 170 mg/dL (60-99); Potassium 4.5 mmol/L (3.3-5.1); Sodium 144 mmol/L (135-145)
[2022-04-30 06:58] VITALS: BP 145/73; PULSE 101; RESP 16; TEMP 36.6; O2SAT 92
[2022-04-30 07:18] LABS: Band Neutrophils Percent 22 % (3-5); Lymphocytes Absolute Manual 0.2 X10*3/uL (1.2-4.9); Lymphocytes Percent Manual 2 % (20-40); Monocytes Absolute Manual 0.5 X10*3/uL (0.1-1.2); Monocytes Percent Manual 4 % (2-11); Neutrophils Absolute Manual 11.7 X10*3/uL (2.0-8.3); Neutrophils Percent Manual 72 % (45-73)
[2022-04-30 07:20] LABS: RBC Morphology NOTED
[2022-04-30 07:21] LABS: Burr Cells 3+ (>5) /OIF; Large Platelet PRESENT; Ovalocytes 1+ (5-14) /OIF; Platelet Estimate NORMAL (NORMAL); Platelet Morphology Comment NOTED
--- NOTE | 2022-04-30 08:24 | PM.PNGS ---
Subjective Subjective Date of Service: 04/30/22 <Crystal Hernandez PA-C - Last Filed: 04/30/22 08:32> 04/30/22 <Darion Fam MD - Last Filed: 04/30/22 09:42> Interval history: Feels better this morning. Wants NGT out. Denies abd pain but reports more of a pressure . Feels rumbling but denies flatus from ostomy. <Crystal Hernandez PA-C - Last Filed: 04/30/22 08:32> Physical Exam Vital Signs: Vital Signs: Last Vital Signs Temp 97.9 F 04/30/22 06:58 Pulse 101 H 04/30/22 06:58 Resp 16 04/30/22 06:58 BP 145/73 H 04/30/22 06:58 Pulse Ox 92 04/30/22 06:58 O2 Del Method 04/30/22 06:58 O2 Flow Rate 3 04/29/22 19:35 BMI result Body Mass Index 28.1 <Crystal Hernandez PA-C - Last Filed: 04/30/22 08:32> Const: General: comfortable, no acute distress and alert <Crystal Hernandez PA-C - Last Filed: 04/30/22 08:32> Orientation/consciousness: patient oriented x3 <GEOVANY Swanson Last Filed: 04/30/22 08:32> HEENT: Other: NGT in place, bilious output <GEOVANY Swanson Last Filed: 04/30/22 08:32> Resp: Effort & Inspection: normal respiratory effort <GEOVANY Swanson Last Filed: 04/30/22 08:32> GI: Inspection: Yes distended and Yes incision (dressing intact) <GEOVANY Swanson Last Filed: 04/30/22 08:32> Palpation (GI): Soft to palpation, Tenderness to palpation present (GI) (mild), no guarding and not rigid <GEOVANY Swanson Last Filed: 04/30/22 08:32> Percussion: Yes tympanic to percussion <GEOVANY Swanson Last Filed: 04/30/22 08:32> Skin: General skin exam: no rashes or lesions noted <GEOVANY Swanson Last Filed: 04/30/22 08:32> Neuro: General: patient oriented x3 <GEOVANY Swanson Last Filed: 04/30/22 08:32> Extrem: General: Yes no clubbing, cyanosis or edema <Crystal Hernandez PA-C - Last Filed: 04/30/22 08:32> Objective Data Active Medications Amlodipine Besylate (Amlodipine Besylate 10 Mg Tablet) 10 mg PO DAILY [facility]; Protocol Last Admin: 04/29/22 11:07 Dose: Not Given Documented By: RISHABH Non-Admin Reason: Pt went for surgery Benzocaine (Throat Lozenge, Medicated Lozenge) 1 lozenge MUCOUS MEM RQ4H PRN PRN Reason: Sore Throat Dextrose (Dextrose 50 % 25 Gm/50 Ml Syringe) 25 gm IVPUSH Q15M PRN; Protocol PRN Reason: per Hypoglycemia Standing Ord. Glucose (Glucose Gel 15 Gm Gel..Gram.) 15 gm PO Q15M PRN; Protocol PRN Reason: per Hypoglycemia Standing Ord. Heparin Sodium (Porcine) (Heparin Sodium,Porcine 5,000 Unit/Ml Vial) 5,000 unit SUBCUT Q12H [facility] Acetaminophen (Ofirmev) 1,000 mg in 100 mls @ 400 mls/hr IV Q6H COUNT [facility]CLUDES [facility] Last Infusion: 04/30/22 05:43 Dose: 0 mls/hr Documented By: BENITA Lactated Ringer's (Lr) 1,000 mls @ 125 mls/hr IVCONT .Q8H [facility] Insulin Human Lispro (Insulin Lispro 100 Unit/Ml 3 Ml Vial) 0 unit SUBCUT Q6H [facility]; Protocol Last Admin: 04/30/22 05:29 Dose: Not Given Documented By: BENITA Non-Admin Reason: NPO Lisinopril (Lisinopril 20 Mg Tablet) 20 mg PO DAILY [facility]; Protocol Last Admin: 04/29/22 11:07 Dose: Not Given Documented By: RISHABH Non-Admin Reason: Not In Room Morphine Sulfate (Morphine Sulfate 4 Mg/Ml Cartridge) 4 mg IVPUSH RQ4H PRN; Protocol PRN Reason: Pain, Severe (Pain Scale 7-10) Last Admin: 04/28/22 22:41 Dose: 4 mg Documented By: BENITA Ondansetron HCl (Ondansetron Hcl 4 Mg/2 Ml Vial) 4 mg IVPUSH RQ6H PRN PRN Reason: Nausea and Vomiting Pharmacy Consult (Consult Rx Perform Med Rec) 1 each MISCELLANE ONCE PRN PRN Reason: Consult order Sodium Chloride (0.9 % Sodium Chloride Flush 3 Ml Syringe) [facility] Last Admin: 04/30/22 01:29 Dose: Not Given Documented By: BENITA Non-Admin Reason: IV Running <Crystal Hernandez PA-C - Last Filed: 04/30/22 08:32> Labs CBC & Chem 7: 04/30/22 05:12 04/30/22 05:12 <Crystal Hernandez PA-C - Last Filed: 04/30/22 08:32> Labs: Laboratory Results - last 24 hr 04/29/22 04/29/22 04/29/22 09:36 14:18 16:00 MCV MCH MCHC RDW Plt Count MPV Immature Gran % (Auto) Neut % (Auto) Lymph % (Auto) [place] % (Auto) Eos % (Auto) Baso % (Auto) Lymph # (Auto) [place] # (Auto) Eos # (Auto) Baso # (Auto) Abs Immat Gran (auto) Absolute Neuts (auto) Absolute Nucleated RBC Nucleated RBC % (auto) Neutrophils % (Manual) Band Neutrophils % Lymphocytes % (Manual) Monocytes % (Manual) Abs Neuts (Manual) Lymphocytes # (Manual) Monocytes # (Manual) Platelet Estimate Large Platelets Plt Morphology Comment RBC Morphology Ovalocytes [place] Cells Anion Gap Estim Creat Clear Calc Estimated GFR POC Glucose 141 H 160 H 157 H Fasting Glucose Calcium 04/29/22 04/30/22 04/30/22 20:49 05:12 05:12 MCV 81.9 MCH 26.3 L MCHC 32.1 RDW 13.6 Plt Count 250 MPV 10.2 Immature Gran % (Auto) Cancelled Neut % (Auto) Cancelled Lymph % (Auto) Cancelled [place] % (Auto) Cancelled Eos % (Auto) Cancelled Baso % (Auto) Cancelled Lymph # (Auto) Cancelled [place] # (Auto) Cancelled Eos # (Auto) Cancelled Baso # (Auto) Cancelled Abs Immat Gran (auto) Cancelled Absolute Neuts (auto) Cancelled Absolute Nucleated RBC 0.000 Nucleated RBC % (auto) 0.0 Neutrophils % (Manual) 72 Band Neutrophils % 22 H Lymphocytes % (Manual) 2 L Monocytes % (Manual) 4 Abs Neuts (Manual) 11.7 H Lymphocytes # (Manual) 0.2 L Monocytes # (Manual) 0.5 Platelet Estimate NORMAL Large Platelets PRESENT Plt Morphology Comment NOTED RBC Morphology NOTED Ovalocytes 1+ (5-14) [place] Cells 3+ (>5) Anion Gap 18 Estim Creat Clear Calc 58.5 Estimated GFR > 60 POC Glucose 139 H Fasting Glucose 170 H Calcium 7.7 L 04/30/22 05:27 MCV MCH MCHC RDW Plt Count MPV Immature Gran % (Auto) Neut % (Auto) Lymph % (Auto) [place] % (Auto) Eos % (Auto) Baso % (Auto) Lymph # (Auto) [place] # (Auto) Eos # (Auto) Baso # (Auto) Abs Immat Gran (auto) Absolute Neuts (auto) Absolute Nucleated RBC Nucleated RBC % (auto) Neutrophils % (Manual) Band Neutrophils % Lymphocytes % (Manual) Monocytes % (Manual) Abs Neuts (Manual) Lymphocytes # (Manual) Monocytes # (Manual) Platelet Estimate Large Platelets Plt Morphology Comment RBC Morphology Ovalocytes [place] Cells Anion Gap Estim Creat Clear Calc Estimated GFR POC Glucose 162 H Fasting Glucose Calcium <GEOVANY Swanson Last Filed: 04/30/22 08:32> Procedures Date of Service Date of Service: 04/30/22 <GEOVANY Swanson Last Filed: 04/30/22 08:32> Progress Note: A&P Assessment and plan (1) Bowel obstruction: Status: Acute <GEOVANY Swanson Last Filed: 04/30/22 08:32> (2) Status post colon resection: Status: Acute <GEOVANY Swanson Last Filed: 04/30/22 08:32> (3) Stricture of transverse colon: Status: Acute <GEOVANY Swanson Filed: 04/30/22 08:32> Assessment and Plan: Feels better this morning Looks comfortable Abdomen distended but soft Stoma viable looking, no output yet Good urine output Continue IV fluids NG tube Pain management Incentive spirometry Out of bed Seen and examined independently - agree with KOLBY Hernandez <Darion Fam MD - Last Filed: 04/30/22 09:42> Assessment and Plan: 71 year old male admitted with bowel dilatation. He was taken to the OR for exploration yesterday and is s/p ex lap, resection of transverse colon stricture, diverting loop ileostomy. He was found to have transverse colon stricture intraoperatively. He is doing fairly well post op. Abd remains distended and tympanitic. Ostomy dark appearing but viable, no evidence of GI function yet. Will keep NGT in for now. IVF increased- most likely hypovolemic given tachycardia and elevated BUN. Strongly encouraged to ambulate halls at least 4 times today to promote bowel function, IS use. Collins removed this am. Await pathology. <Crystal Hernandez PA-C - Last Filed: 04/30/22 08:32> Time Spent With Patient Time: Total time managing care of this patient today ____ minutes. <Crystal Hernandez PA-C - Last Filed: 04/30/22 08:32> Quality Stroke Does the patient have a stroke diagnosis?: No <Crystal Hernandez PA-C - Last Filed: 04/30/22 08:32> VTE Prior VTE?: No <Crystal Hernandez PA-C - Last Filed: 04/30/22 08:32> VTE Risk Level:: Surgical - low <Crystal Hernandez PA-C - Last Filed: 04/30/22 08:32> VTE Device Contraindication: N/A - Device Ordered <Crystal Hernandez PA-C - Last Filed: 04/30/22 08:32> VTE Drug Contraindication: Treatment Not Indicated <GEOVANY Swanson Last Filed: 04/30/22 08:32>
[2022-04-30] MEDS: lisinopriL 20 MG TABLET PO (08:46)
[2022-04-30] MEDS: 0.9 % Sodium Chloride Flush 3 ML SYRINGE IVFLUSH (08:46)
[2022-04-30] MEDS: amLODIPine Besylate 10 MG TABLET PO (08:46)
[2022-04-30] MEDS: Lactated Ringers 1,000 ML 125 ML IVCONT ×2 (09:01→17:17)
[2022-04-30 11:57] LABS: Glucose, Whole Blood 177 mg/dL (60-115)
[2022-04-30] MEDS: Insulin Lispro 100 UNIT/ML 3 ML VIAL SUBCUT ×2 (12:10→18:24)
[2022-04-30 14:50] VITALS: BP 170/81; PULSE 100; RESP 18; TEMP 37.2; O2SAT 93
--- NOTE | 2022-04-30 15:27 | HO.POSTANES ---
Post Anesthesia Evaluation Post Anesthesia Evaluation Vital Signs: Vital Signs Temp Pulse Resp BP Pulse Ox O2 Del Method 04/30/22 14:50 98.9 F 100 18 170/81 H 93 Room Air 04/30/22 06:58 97.9 F 101 H 16 145/73 H 92 Room Air 04/30/22 03:38 98.6 F 98 18 127/76 96 Room Air Anesthesia: General Endotracheal-GETA Mental Status: Awake Pain Control: Satisfactory Nausea/Vomiting: None Hydration: Adequate Anesthesia-Related Issues: No Anes. Related Issues
[2022-04-30 15:45] VITALS: BP 153/78
--- NOTE | 2022-04-30 15:55 | PM.EVENT ---
Event Note Date of Service: 04/30/22 Event Note: Seen on afternoon rounds Says he continues to feel better Some incisional pain Looks well He says he has passed some flatus via the stoma Stoma no stool yet Through abdomen distended but soft Keep NG tube in place Able to void freely Pain management Incentive spirometry, out of bed Time Spent With Patient Time: Total time managing care of this patient today ____ minutes.
[2022-04-30 18:20] LABS: Glucose, Whole Blood 152 mg/dL (60-115)
[2022-04-30 19:04] VITALS: BP 164/80; PULSE 96; RESP 16; TEMP 36.6; O2SAT 92
[2022-04-30] MEDS: Heparin Sodium,Porcine 5,000 UNIT/ML VIAL 5000 UNIT SUBCUT (20:15)
[2022-04-30 23:55] LABS: Glucose, Whole Blood 142 mg/dL (60-115)
[2022-05-01] MEDS: Lactated Ringers 1,000 ML 125 ML IVCONT ×2 (01:31→08:53)
[2022-05-01 04:00] VITALS: BP 184/86; PULSE 86; RESP 18; TEMP 36.7; O2SAT 96
[2022-05-01] MEDS: Acetaminophen 1,000 MG/100 ML PIGGYBACK 400 MG IV ×4 (04:56→22:31)
[2022-05-01] MEDS: Insulin Lispro 100 UNIT/ML 3 ML VIAL SUBCUT (06:30)
[2022-05-01 06:34] LABS: Glucose, Whole Blood 161 mg/dL (60-115)
[2022-05-01 08:00] VITALS: BP 156/78; PULSE 97; RESP 20; TEMP 36.9; O2SAT 92
[2022-05-01] MEDS: Heparin Sodium,Porcine 5,000 UNIT/ML VIAL 5000 UNIT SUBCUT ×2 (08:53→19:17)
[2022-05-01] MEDS: amLODIPine Besylate 10 MG TABLET PO (08:53)
[2022-05-01] MEDS: lisinopriL 20 MG TABLET PO (08:53)
--- NOTE | 2022-05-01 09:31 | PM.PNGS ---
Subjective Subjective Date of Service: 05/01/22 Interval history: states he continues to feel better has had output frol ileostomy - liquid stool and gas wants NGT out voiding freely Physical Exam Vital Signs: Vital Signs: Last Vital Signs Temp 98.4 F 05/01/22 08:00 Pulse 97 05/01/22 08:00 Resp 20 05/01/22 08:00 BP 156/78 H 05/01/22 08:00 Pulse Ox 92 05/01/22 08:00 O2 Del Method 05/01/22 08:00 O2 Flow Rate 3 04/29/22 19:35 BMI result Body Mass Index 28.1 Const: General: comfortable and no acute distress Resp: Effort & Inspection: normal respiratory effort Cardio: Rate: regular rate GI: Other: ileostomy discolored but viable, good stool and air in bag, incision clean Palpation (GI): Soft to palpation, not firm and no guarding Objective Data Active Medications Amlodipine Besylate (Amlodipine Besylate 10 Mg Tablet) 10 mg PO DAILY [facility]; Protocol Last Admin: 05/01/22 08:53 Dose: 10 mg Documented By: ELENA Benzocaine (Throat Lozenge, Medicated Lozenge) 1 lozenge MUCOUS MEM RQ4H PRN PRN Reason: Sore Throat Dextrose (Dextrose 50 % 25 Gm/50 Ml Syringe) 25 gm IVPUSH Q15M PRN; Protocol PRN Reason: per Hypoglycemia Standing Ord. Glucose (Glucose Gel 15 Gm Gel..Gram.) 15 gm PO Q15M PRN; Protocol PRN Reason: per Hypoglycemia Standing Ord. Heparin Sodium (Porcine) (Heparin Sodium,Porcine 5,000 Unit/Ml Vial) 5,000 unit SUBCUT Q12H [facility] Last Admin: 05/01/22 08:53 Dose: 5,000 unit Documented By: ELENA Acetaminophen (Ofirmev) 1,000 mg in 100 mls @ 400 mls/hr IV Q6H [facility] Last Infusion: 05/01/22 05:13 Dose: 0 mls/hr Documented By: BHAVNA Lactated Ringer's (Lr) 1,000 mls @ 100 mls/hr IVCONT .Q10H [facility] Last Admin: 05/01/22 08:53 Dose: 125 mls/hr Documented By: ELENA Insulin Human Lispro (Insulin Lispro 100 Unit/Ml 3 Ml Vial) 0 unit SUBCUT Q6H [facility]; Protocol Last Admin: 05/01/22 06:30 Dose: 2 unit Documented By: BHAVNA Lisinopril (Lisinopril 20 Mg Tablet) 20 mg PO DAILY [facility]; Protocol Last Admin: 05/01/22 08:53 Dose: 20 mg Documented By: ELENA Morphine Sulfate (Morphine Sulfate 4 Mg/Ml Cartridge) 3 mg IVPUSH RQ4H PRN; Protocol PRN Reason: Pain, Severe (Pain Scale 7-10) Ondansetron HCl (Ondansetron Hcl 4 Mg/2 Ml Vial) 4 mg IVPUSH RQ6H PRN PRN Reason: Nausea and Vomiting Pharmacy Consult (Consult Rx Perform Med Rec) 1 each MISCELLANE ONCE PRN PRN Reason: Consult order Sodium Chloride (0.9 % Sodium Chloride Flush 3 Ml Syringe) 3 ml IVFLUSH QSHIFT [facility] Last Admin: 05/01/22 08:54 Dose: Not Given Documented By: ELENA Non-Admin Reason: IV Running Labs 04/30/22 05:12 04/30/22 05:12 Labs: Laboratory Results - last 24 hr 04/30/22 04/30/22 04/30/22 11:54 18:15 23:50 POC Glucose 177 H 152 H 142 H 05/01/22 06:18 POC Glucose 161 H Procedures Date of Service Date of Service: 05/01/22 Progress Note: A&P Assessment and plan (1) Stricture of transverse colon: Status: Acute Assessment and Plan: s/p resection, loop ileostomy stoma with good output possibly dc NGT later today OOB to chair pain mgt incentive spirometry subjectively state he feels much better IV abx Time Spent With Patient Time: Total time managing care of this patient today ____ minutes. Quality Stroke Does the patient have a stroke diagnosis?: No VTE Prior VTE?: No VTE Risk Level:: Surgical - low VTE Device Contraindication: N/A - Device Ordered VTE Drug Contraindication: Treatment Not Indicated
[2022-05-01] MEDS: Piperacillin Sodium/Tazobactam 3.375 GM in 0.9 % Sodium Chloride 50 ML IV ×3 (10:48→22:01)
[2022-05-01 12:08] LABS: Glucose, Whole Blood 131 mg/dL (60-115)
--- NOTE | 2022-05-01 15:40 | PM.EVENT ---
Event Note Date of Service: 05/01/22 Event Note: continues to have good stoma output no NGT output abd remains soft stoma functioning well will dc NGT keep NPO, sips of clears only OOB family at bedside Time Spent With Patient Time: Total time managing care of this patient today ____ minutes.
[2022-05-01 16:00] VITALS: BP 142/72; PULSE 90; RESP 18; TEMP 37.2; O2SAT 91
[2022-05-01 16:21] LABS: Glucose, Whole Blood 122 mg/dL (60-115)
[2022-05-01] MEDS: 0.9 % Sodium Chloride Flush 3 ML SYRINGE IVFLUSH (16:58)
[2022-05-01] MEDS: Lactated Ringers 1,000 ML 100 ML IVCONT (19:19)
[2022-05-01 20:00] VITALS: BP 142/78; PULSE 96; RESP 16; TEMP 36.8; O2SAT 91
[2022-05-01 20:21] LABS: Glucose, Whole Blood 145 mg/dL (60-115)
[2022-05-02] MEDS: Insulin Lispro 100 UNIT/ML 3 ML VIAL SUBCUT ×4 (00:19→20:53)
[2022-05-02 00:39] LABS: Glucose, Whole Blood 154 mg/dL (60-115)
[2022-05-02 02:59] VITALS: BP 147/77; PULSE 95; RESP 17; TEMP 36.3; O2SAT 92
[2022-05-02] MEDS: Piperacillin Sodium/Tazobactam 3.375 GM in 0.9 % Sodium Chloride 50 ML IV ×4 (03:50→20:53)
[2022-05-02] MEDS: Acetaminophen 1,000 MG/100 ML PIGGYBACK 400 MG IV ×2 (04:23→11:38)
[2022-05-02] MEDS: Lactated Ringers 1,000 ML 100 ML IVCONT ×2 (04:25→14:36)
[2022-05-02 06:02] LABS: Glucose, Whole Blood 175 mg/dL (60-115)
[2022-05-02 08:00] VITALS: BP 158/81; PULSE 90; RESP 20; TEMP 37.1; O2SAT 89
[2022-05-02] MEDS: Heparin Sodium,Porcine 5,000 UNIT/ML VIAL 5000 UNIT SUBCUT ×2 (09:18→20:52)
[2022-05-02] MEDS: 0.9 % Sodium Chloride Flush 3 ML SYRINGE IVFLUSH ×2 (09:19→16:53)
[2022-05-02] MEDS: amLODIPine Besylate 10 MG TABLET PO (09:19)
[2022-05-02] MEDS: lisinopriL 20 MG TABLET PO (09:19)
--- NOTE | 2022-05-02 10:10 | P.PNGS_ITS ---
Subjective Subjective Date of Service: 05/02/22 Interval history: states he continues to feel better no N/V ambulated well Physical Exam Vital Signs: Vital Signs: Last Vital Signs Temp 98.8 F 05/02/22 08:00 Pulse 90 05/02/22 08:00 Resp 20 05/02/22 08:00 BP 158/81 H 05/02/22 08:00 Pulse Ox 92 05/02/22 02:59 O2 Del Method 05/02/22 08:00 O2 Flow Rate 1 05/01/22 16:00 BMI result Body Mass Index 28.1 Const: General: comfortable and no acute distress Resp: Effort & Inspection: normal respiratory effort Cardio: Rate: regular rate GI: Other: distended but less, also softer; good stoma function, viable with areas of mucosal discoloration incision with serous drainage in middle part Objective Data Active Medications Amlodipine Besylate (Amlodipine Besylate 10 Mg Tablet) 10 mg PO DAILY [facility]; Protocol Last Admin: 05/02/22 09:19 Dose: 10 mg Documented By: ELENA Benzocaine (Throat Lozenge, Medicated Lozenge) 1 lozenge MUCOUS MEM RQ4H PRN PRN Reason: Sore Throat Dextrose (Dextrose 50 % 25 Gm/50 Ml Syringe) 25 gm IVPUSH Q15M PRN; Protocol PRN Reason: per Hypoglycemia Standing Ord. Glucose (Glucose Gel 15 Gm Gel..Gram.) 15 gm PO Q15M PRN; Protocol PRN Reason: per Hypoglycemia Standing Ord. Heparin Sodium (Porcine) (Heparin Sodium,Porcine 5,000 Unit/Ml Vial) 5,000 unit SUBCUT Q12H [facility] Last Admin: 05/02/22 09:18 Dose: 5,000 unit Documented By: ELENA Acetaminophen (Ofirmev) 1,000 mg in 100 mls @ 400 mls/hr IV Q6H [facility] Last Infusion: 05/02/22 04:43 Dose: 0 mls/hr Documented By: BHAVNA Lactated Ringer's (Lr) 1,000 mls @ 100 mls/hr IVCONT .Q10H [facility] Last Admin: 05/02/22 04:25 Dose: 100 mls/hr Documented By: BHAVNA Piperacillin Sod/Tazobactam (Sod 3.375 gm/ Sodium Chloride) 50 mls @ 100 mls/hr IV Q6H [facility] Last Infusion: 05/02/22 10:07 Dose: 0 mls/hr Documented By: ELENA Insulin Human Lispro (Insulin Lispro 100 Unit/Ml 3 Ml Vial) 0 unit SUBCUT Q6H [facility]; Protocol Last Admin: 05/02/22 06:11 Dose: 2 unit Documented By: BHAVNA Lisinopril (Lisinopril 20 Mg Tablet) 20 mg PO DAILY [facility]; Protocol Last Admin: 05/02/22 09:19 Dose: 20 mg Documented By: ELENA Morphine Sulfate (Morphine Sulfate 4 Mg/Ml Cartridge) 3 mg IVPUSH RQ4H PRN; Protocol PRN Reason: Pain, Severe (Pain Scale 7-10) Ondansetron HCl (Ondansetron Hcl 4 Mg/2 Ml Vial) 4 mg IVPUSH RQ6H PRN PRN Reason: Nausea and Vomiting Pharmacy Consult (Consult Rx Perform Med Rec) 1 each MISCELLANE ONCE PRN PRN Reason: Consult order Sodium Chloride (0.9 % Sodium Chloride Flush 3 Ml Syringe) 3 ml IVFLUSH QSHIFT [facility] Last Admin: 05/02/22 09:19 Dose: 3 ml Documented By: ELENA Labs 04/30/22 05:12 04/30/22 05:12 Labs: Laboratory Results - last 24 hr 05/01/22 05/01/22 05/01/22 12:02 15:58 20:06 POC Glucose 131 H 122 H 145 H 05/02/22 05/02/22 00:15 05:57 POC Glucose 154 H 175 H Microbiology Microbiology Results: Microbiology 04/26/22 17:27 Blood Culture - Final Blood - Venous No growth after 5 days. 04/26/22 17:21 Blood Culture - Final Blood - Venous No growth after 5 days. Procedures Date of Service Date of Service: 05/02/22 Progress Note: A&P Assessment and plan (1) Stricture of transverse colon: Status: Acute Assessment and Plan: much improved NGT output removed yesterday ok to have clear liquids stoma functioning well I probed incision with qtip - large amounts of serous fluid c/w subctaneous fat necrosis dressings changed doing well Time Spent With Patient Time: Total time managing care of this patient today ____ minutes. Quality Stroke Does the patient have a stroke diagnosis?: No VTE Prior VTE?: No VTE Risk Level:: Surgical - low VTE Device Contraindication: N/A - Device Ordered VTE Drug Contraindication: Treatment Not Indicated
[2022-05-02 11:34] LABS: Glucose, Whole Blood 118 mg/dL (60-115)
[2022-05-02 14:59] VITALS: BP 153/79; PULSE 92; RESP 19; TEMP 36.8; O2SAT 92
[2022-05-02 16:21] LABS: Glucose, Whole Blood 164 mg/dL (60-115)
[2022-05-02 19:08] VITALS: BP 161/82; PULSE 96; RESP 20; TEMP 37.3; O2SAT 90
[2022-05-02 20:28] LABS: Glucose, Whole Blood 190 mg/dL (60-115)
[2022-05-03] MEDS: Lactated Ringers 1,000 ML 100 ML IVCONT (02:18)
[2022-05-03 03:07] VITALS: BP 175/83; PULSE 93; RESP 18; TEMP 37.2; O2SAT 94
[2022-05-03] MEDS: Piperacillin Sodium/Tazobactam 3.375 GM in 0.9 % Sodium Chloride 50 ML IV ×4 (04:56→20:41)
[2022-05-03 07:27] VITALS: BP 160/80; PULSE 97; RESP 18; TEMP 37.4; O2SAT 90
[2022-05-03] MEDS: Heparin Sodium,Porcine 5,000 UNIT/ML VIAL 5000 UNIT SUBCUT ×2 (07:39→20:40)
[2022-05-03] MEDS: lisinopriL 20 MG TABLET PO (07:40)
[2022-05-03] MEDS: amLODIPine Besylate 10 MG TABLET PO (07:40)
[2022-05-03 07:54] LABS: Glucose, Whole Blood 135 mg/dL (60-115)
--- NOTE | 2022-05-03 08:18 | PM.PNGS ---
Subjective Subjective Date of Service: 05/04/22 Interval history: States he continues to feel better Tolerating clear liquids Has been ambulating Stoma with good function Physical Exam Vital Signs: Vital Signs: Last Vital Signs Temp 99.3 F 05/03/22 07:27 Pulse 97 05/03/22 07:27 Resp 18 05/03/22 07:27 BP 160/80 H 05/03/22 07:27 Pulse Ox 90 L 05/03/22 07:27 O2 Del Method 05/03/22 07:27 O2 Flow Rate 1 05/01/22 16:00 BMI result Body Mass Index 28.1 Const: Other: Looks well General: comfortable and no acute distress Resp: Effort & Inspection: normal respiratory effort Cardio: Rate: regular rate GI: Other: Soft, no guarding rebound,, with good output, discolored but viable Objective Data Active Medications Amlodipine Besylate (Amlodipine Besylate 10 Mg Tablet) 10 mg PO DAILY [facility]; Protocol Last Admin: 05/03/22 07:40 Dose: 10 mg Documented By: PAPO Benzocaine (Throat Lozenge, Medicated Lozenge) 1 lozenge MUCOUS MEM RQ4H PRN PRN Reason: Sore Throat Dextrose (Dextrose 50 % 25 Gm/50 Ml Syringe) 25 gm IVPUSH Q15M PRN; Protocol PRN Reason: per Hypoglycemia Standing Ord. Glucose (Glucose Gel 15 Gm Gel..Gram.) 15 gm PO Q15M PRN; Protocol PRN Reason: per Hypoglycemia Standing Ord. Heparin Sodium (Porcine) (Heparin Sodium,Porcine 5,000 Unit/Ml Vial) 5,000 unit SUBCUT Q12H [facility] Last Admin: 05/03/22 07:39 Dose: 5,000 unit Documented By: PAPO Lactated Ringer's (Lr) 1,000 mls @ 100 mls/hr IVCONT .Q10H [facility] Last Admin: 05/03/22 02:18 Dose: 100 mls/hr Documented By: KOURTNEY Piperacillin Sod/Tazobactam (Sod 3.375 gm/ Sodium Chloride) 50 mls @ 100 mls/hr IV Q6H [facility] Last Infusion: 05/03/22 05:53 Dose: 0 mls/hr Documented By: KOURTNEY Insulin Human Lispro (Insulin Lispro 100 Unit/Ml 3 Ml Vial) 0 unit SUBCUT QIDACHS [facility]; Protocol Last Admin: 05/03/22 07:39 Dose: Not Given Documented By: PAPO Non-Admin Reason: No Insulin Coverage Lisinopril (Lisinopril 20 Mg Tablet) 20 mg PO DAILY [facility]; Protocol Last Admin: 05/03/22 07:40 Dose: 20 mg Documented By: PAPO Morphine Sulfate (Morphine Sulfate 4 Mg/Ml Cartridge) 3 mg IVPUSH RQ4H PRN; Protocol PRN Reason: Pain, Severe (Pain Scale 7-10) Ondansetron HCl (Ondansetron Hcl 4 Mg/2 Ml Vial) 4 mg IVPUSH RQ6H PRN PRN Reason: Nausea and Vomiting Pharmacy Consult (Consult Rx Perform Med Rec) 1 each MISCELLANE ONCE PRN PRN Reason: Consult order Sodium Chloride (0.9 % Sodium Chloride Flush 3 Ml Syringe) 3 ml IVFLUSH QSHIFT [facility] Last Admin: 05/03/22 07:39 Dose: Not Given Documented By: PAPO Non-Admin Reason: IV Running Labs 04/30/22 05:12 04/30/22 05:12 Labs: Laboratory Results - last 24 hr 05/02/22 05/02/22 05/02/22 11:22 16:05 19:12 POC Glucose 118 H 164 H 190 H 05/03/22 07:25 POC Glucose 135 H Procedures Date of Service Date of Service: 05/03/22 Progress Note: A&P Assessment and plan (1) Stricture of transverse colon: Status: Acute Assessment and Plan: Status post short segment dissection Continues to do well Stoma functioning well Advance diet DC stoma bridge Out of bed Wound care Time Spent With Patient Time: Total time managing care of this patient today ____ minutes. Quality Stroke Does the patient have a stroke diagnosis?: No VTE Prior VTE?: No VTE Risk Level:: Surgical - low VTE Device Contraindication: N/A - Device Ordered VTE Drug Contraindication: Treatment Not Indicated
[2022-05-03 11:28] LABS: Glucose, Whole Blood 191 mg/dL (60-115)
[2022-05-03] MEDS: Insulin Lispro 100 UNIT/ML 3 ML VIAL SUBCUT ×3 (11:33→20:40)
[2022-05-03] MEDS: 0.9 % Sodium Chloride Flush 3 ML SYRINGE IVFLUSH ×2 (15:09→20:43)
[2022-05-03 16:00] VITALS: BP 160/75; PULSE 103; RESP 16; TEMP 37.4; O2SAT 92
[2022-05-03 16:10] LABS: Glucose, Whole Blood 200 mg/dL (60-115)
--- NOTE | 2022-05-03 18:39 | PC.NURSE ---
Pt tolerating diet. Ambulated in [place]. Encouraged use of incentive spirometer. Room air sats 89%, pt placed on 2L [place]
[2022-05-03 19:42] VITALS: BP 146/75; PULSE 96; RESP 16; TEMP 37.1; O2SAT 94
[2022-05-03 20:07] LABS: Glucose, Whole Blood 218 mg/dL (60-115)
[2022-05-04 03:45] VITALS: BP 160/72; PULSE 94; RESP 17; TEMP 36.6; O2SAT 96
[2022-05-04] MEDS: Piperacillin Sodium/Tazobactam 3.375 GM in 0.9 % Sodium Chloride 50 ML IV ×4 (05:35→22:03)
[2022-05-04 07:24] VITALS: BP 170/81; PULSE 93; RESP 16; TEMP 37; O2SAT 95
[2022-05-04 07:26] LABS: Glucose, Whole Blood 162 mg/dL (60-115)
--- NOTE | 2022-05-04 08:05 | P.PNGS_ITS ---
Subjective Subjective Date of Service: 05/04/22 <Crystal Hernandez PA-C - Last Filed: 05/04/22 09:00> 05/04/22 <Darion Fam MD - Last Filed: 05/04/22 12:26> Interval history: Continues to feel well. Tolerating solid diet. Ostomy continues with good output. Denies abd pain, reports occasional gas cramping. OOB and ambulating. <Crystal Hernandez PA-C - Last Filed: 05/04/22 09:00> Physical Exam Vital Signs: Vital Signs: Last Vital Signs Temp 98.6 F 05/04/22 07:24 Pulse 93 05/04/22 07:24 Resp 16 05/04/22 07:24 BP 170/81 H 05/04/22 07:24 Pulse Ox 95 05/04/22 07:24 O2 Del Method 05/04/22 07:24 O2 Flow Rate 2 05/04/22 03:45 BMI result Body Mass Index 28.1 <Crystal Hernandez PA-C - Last Filed: 05/04/22 09:00> Const: General: comfortable, no acute distress and alert <Crystal Hernandez PA-C - Last Filed: 05/04/22 09:00> Orientation/consciousness: patient oriented x3 <Crystal Hernandez PA-C - Last Filed: 05/04/22 09:00> Resp: Effort & Inspection: normal respiratory effort <Crystal Hernandez PA-C - Last Filed: 05/04/22 09:00> GI: Inspection: Yes distended and Yes incision (clean) <Crystal Hernandez PA-C - Last Filed: 05/04/22 09:00> Palpation (GI): Soft to palpation, nontender, no guarding and not rigid <GEOVANY Swanson Last Filed: 05/04/22 09:00> Percussion: Yes normal to percussion <GEOVANY Swanson Last Filed: 05/04/22 09:00> Skin: General skin exam: no rashes or lesions noted <GEOVANY Swanson Last Filed: 05/04/22 09:00> Neuro: General: patient oriented x3 <Crystal Hernandez PA-C - Last Filed: 05/04/22 09:00> Extrem: General: Yes no clubbing, cyanosis or edema <Crystal Hernandze PA-C - Last Filed: 05/04/22 09:00> Objective Data Active Medications Amlodipine Besylate (Amlodipine Besylate 10 Mg Tablet) 10 mg PO DAILY [facility]; Protocol Last Admin: 05/03/22 07:40 Dose: 10 mg Documented By: PAPO Benzocaine (Throat Lozenge, Medicated Lozenge) 1 lozenge MUCOUS MEM RQ4H PRN PRN Reason: Sore Throat Dextrose (Dextrose 50 % 25 Gm/50 Ml Syringe) 25 gm IVPUSH Q15M PRN; Protocol PRN Reason: per Hypoglycemia Standing Ord. Glucose (Glucose Gel 15 Gm Gel..Gram.) 15 gm PO Q15M PRN; Protocol PRN Reason: per Hypoglycemia Standing Ord. Heparin Sodium (Porcine) (Heparin Sodium,Porcine 5,000 Unit/Ml Vial) 5,000 unit SUBCUT Q12H [facility] Last Admin: 05/03/22 20:40 Dose: 5,000 unit Documented By: KOURTNEY Piperacillin Sod/Tazobactam (Sod 3.375 gm/ Sodium Chloride) 50 mls @ 100 mls/hr IV Q6H [facility] Last Infusion: 05/04/22 06:23 Dose: 0 mls/hr Documented By: KOURTNEY Insulin Human Lispro (Insulin Lispro 100 Unit/Ml 3 Ml Vial) 0 unit SUBCUT QIDACHS [facility]; Protocol Last Admin: 05/03/22 20:40 Dose: 4 unit Documented By: KOURTNEY Lisinopril (Lisinopril 20 Mg Tablet) 20 mg PO DAILY [facility]; Protocol Last Admin: 05/03/22 07:40 Dose: 20 mg Documented By: PAPO Morphine Sulfate (Morphine Sulfate 4 Mg/Ml Cartridge) 3 mg IVPUSH RQ4H PRN; Protocol PRN Reason: Pain, Severe (Pain Scale 7-10) Ondansetron HCl (Ondansetron Hcl 4 Mg/2 Ml Vial) 4 mg IVPUSH RQ6H PRN PRN Reason: Nausea and Vomiting Pharmacy Consult (Consult Rx Perform Med Rec) 1 each MISCELLANE ONCE PRN PRN Reason: Consult order Sodium Chloride (0.9 % Sodium Chloride Flush 3 Ml Syringe) 3 ml IVFLUSH QSHIFT [facility] Last Admin: 05/03/22 20:43 Dose: 3 ml Documented By: KOURTNEY <Crystal Hernandez PA-C - Last Filed: 05/04/22 09:00> Labs CBC & Chem 7: 04/30/22 05:12 04/30/22 05:12 <Crystal Hernandez PA-C - Last Filed: 05/04/22 09:00> Labs: Laboratory Results - last 24 hr 05/03/22 05/03/22 05/03/22 11:18 15:36 19:43 POC Glucose 191 H 200 H 218 H 05/04/22 07:23 POC Glucose 162 H <Crystal Hernandez PA-C - Last Filed: 05/04/22 09:00> Procedures Date of Service Date of Service: 05/04/22 <Crystal Hernandez PA-C - Last Filed: 05/04/22 09:00> Progress Note: A&P Assessment and plan (1) Stricture of transverse colon: Status: Acute <Crystal Hernandez PA-C - Last Filed: 05/04/22 09:00> (2) Status post colon resection: Status: Acute <Crystal Hernandez PA-C - Last Filed: 05/04/22 09:00> Assessment and Plan: continues to feel better tolerating diet well stoma with good function abd soft has has been ambulating Arin says she can bring him home tomorrow - they need to arrange bedroom for him doing very well path pending seen and examined independently <Darion Fam MD - Last Filed: 05/04/22 12:26> (3) Bowel obstruction: Status: Acute <Crystal Hernandez PA-C - Last Filed: 05/04/22 09:00> Assessment and Plan: 71 year old male admitted with bowel dilatation. He was taken to the OR for exploration 04/29/22 and is s/p ex lap, resection of transverse colon s tricture, diverting loop ileostomy. He was found to have transverse colon stricture intraoperatively. He is doing well post op and tolerating solid diet. Abd is benign, ostomy functioning well. Ostomy education performed, encouraged own participation in care today. Will reassess later today for possible discharge to home. Pathology still pending. <Crystal Hernandez PA-C - Last Filed: 05/04/22 09:00> Time Spent With Patient Time: Total time managing care of this patient today ____ minutes. <Crystal Hernandez PA-C - Last Filed: 05/04/22 09:00> Quality Stroke Does the patient have a stroke diagnosis?: No <Crystal Hernandez PA-C - Last Filed: 05/04/22 09:00> VTE Prior VTE?: No <Crystal Hernandez PA-C - Last Filed: 05/04/22 09:00> VTE Risk Level:: Surgical - low <GEOVANY Swanson Last Filed: 05/04/22 09:00> VTE Device Contraindication: N/A - Device Ordered <Crystal Hernandez PA-C - Last Filed: 05/04/22 09:00> VTE Drug Contraindication: Treatment Not Indicated <GEOVANY Swanson Last Filed: 05/04/22 09:00>
[2022-05-04] MEDS: Heparin Sodium,Porcine 5,000 UNIT/ML VIAL 5000 UNIT SUBCUT ×2 (09:57→22:03)
[2022-05-04] MEDS: lisinopriL 20 MG TABLET PO (09:58)
[2022-05-04] MEDS: amLODIPine Besylate 10 MG TABLET PO (09:58)
[2022-05-04] MEDS: 0.9 % Sodium Chloride Flush 3 ML SYRINGE IVFLUSH ×3 (09:58→23:52)
[2022-05-04] MEDS: Insulin Lispro 100 UNIT/ML 3 ML VIAL SUBCUT ×4 (09:58→22:02)
--- NOTE | 2022-05-04 10:50 | MHC.CM.PN ---
PER SURGICAL PT MAY BE CLEARED FOR D/C TODAY, [facility] WILL PROVIDE SN FOR NEW OSTOMY TEACHING, FAMILY WILL TRANSPORT
[2022-05-04 11:13] LABS: Glucose, Whole Blood 203 mg/dL (60-115)
[2022-05-04 15:31] VITALS: BP 149/78; PULSE 104; RESP 17; TEMP 37.6; O2SAT 92
[2022-05-04 16:02] LABS: Glucose, Whole Blood 186 mg/dL (60-115)
[2022-05-04 20:00] VITALS: BP 151/76; PULSE 95; RESP 17; TEMP 37.2; O2SAT 92
[2022-05-04 20:30] LABS: Glucose, Whole Blood 256 mg/dL (60-115)
[2022-05-05 03:22] VITALS: BP 164/77; PULSE 98; RESP 16; TEMP 37.3; O2SAT 92
[2022-05-05] MEDS: Piperacillin Sodium/Tazobactam 3.375 GM in 0.9 % Sodium Chloride 50 ML IV ×2 (04:45→10:27)
[2022-05-05 07:27] LABS: Glucose, Whole Blood 192 mg/dL (60-115)
[2022-05-05 07:49] VITALS: BP 163/79; PULSE 91; RESP 18; TEMP 36.9; O2SAT 91
--- NOTE | 2022-05-05 08:15 | PM.PNGS ---
Subjective Subjective Date of Service: 05/06/22 Interval history: Says he continues to feel better Exercise tolerance improved Ambulating well Good oral intake Stoma functioning Physical Exam Vital Signs: Vital Signs: Last Vital Signs Temp 98.4 F 05/05/22 07:49 Pulse 91 05/05/22 07:49 Resp 18 05/05/22 07:49 BP 163/79 H 05/05/22 07:49 Pulse Ox 91 L 05/05/22 07:49 O2 Del Method 05/05/22 07:49 O2 Flow Rate 2 05/04/22 03:45 BMI result Body Mass Index 28.1 Const: General: comfortable and no acute distress Resp: Effort & Inspection: normal respiratory effort Cardio: Rate: regular rate GI: Other: Incision clean, stoma functioning well with good output Palpation (GI): Soft to palpation, not firm and nontender Objective Data Active Medications Amlodipine Besylate (Amlodipine Besylate 10 Mg Tablet) 10 mg PO DAILY [facility]; Protocol Last Admin: 05/04/22 09:58 Dose: 10 mg Documented By: CLARK Benzocaine (Throat Lozenge, Medicated Lozenge) 1 lozenge MUCOUS MEM RQ4H PRN PRN Reason: Sore Throat Dextrose (Dextrose 50 % 25 Gm/50 Ml Syringe) 25 gm IVPUSH Q15M PRN; Protocol PRN Reason: per Hypoglycemia Standing Ord. Glucose (Glucose Gel 15 Gm Gel..Gram.) 15 gm PO Q15M PRN; Protocol PRN Reason: per Hypoglycemia Standing Ord. Heparin Sodium (Porcine) (Heparin Sodium,Porcine 5,000 Unit/Ml Vial) 5,000 unit SUBCUT Q12H [facility] Last Admin: 05/04/22 22:03 Dose: 5,000 unit Documented By: ROSSI Piperacillin Sod/Tazobactam (Sod 3.375 gm/ Sodium Chloride) 50 mls @ 100 mls/hr IV Q6H [facility] Last Infusion: 05/05/22 05:34 Dose: 0 mls/hr Documented By: ROSSI Insulin Human Lispro (Insulin Lispro 100 Unit/Ml 3 Ml Vial) 0 unit SUBCUT QIDACHS [facility]; Protocol Last Admin: 05/04/22 22:02 Dose: 6 unit Documented By: ROSSI Lisinopril (Lisinopril 20 Mg Tablet) 20 mg PO DAILY [facility]; Protocol Last Admin: 05/04/22 09:58 Dose: 20 mg Documented By: CLARK Morphine Sulfate (Morphine Sulfate 4 Mg/Ml Cartridge) 3 mg IVPUSH RQ4H PRN; Protocol PRN Reason: Pain, Severe (Pain Scale 7-10) Ondansetron HCl (Ondansetron Hcl 4 Mg/2 Ml Vial) 4 mg IVPUSH RQ6H PRN PRN Reason: Nausea and Vomiting Pharmacy Consult (Consult Rx Perform Med Rec) 1 each MISCELLANE ONCE PRN PRN Reason: Consult order Sodium Chloride (0.9 % Sodium Chloride Flush 3 Ml Syringe) 3 ml IVFLUSH QSHIFT [facility] Last Admin: 05/04/22 23:52 Dose: 3 ml Documented By: ROSSI Labs 04/30/22 05:12 04/30/22 05:12 Labs: Laboratory Results - last 24 hr 05/04/22 05/04/22 05/04/22 11:05 15:51 20:19 POC Glucose 203 H 186 H 256 H 05/05/22 07:08 POC Glucose 192 H Procedures Date of Service Date of Service: 05/05/22 Progress Note: A&P Assessment and plan (1) Stricture of transverse colon: Start date: 05/05/22 Status: Acute Assessment and Plan: Status post resection, diverting loop ileostomy Continues to improve Feels well States he is ready to go home Good stoma function Continue incentive spirometry Follow-up with me in the office well as PCP Plans discussed with Arin as well Time Spent With Patient Time: Total time managing care of this patient today ____ minutes. Quality Stroke Does the patient have a stroke diagnosis?: No VTE Prior VTE?: No VTE Risk Level:: Surgical - low VTE Device Contraindication: N/A - Device Ordered VTE Drug Contraindication: Treatment Not Indicated
[2022-05-05] MEDS: lisinopriL 20 MG TABLET PO (08:28)
[2022-05-05] MEDS: Insulin Lispro 100 UNIT/ML 3 ML VIAL SUBCUT ×2 (08:28→11:56)
[2022-05-05] MEDS: Heparin Sodium,Porcine 5,000 UNIT/ML VIAL 5000 UNIT SUBCUT (08:28)
[2022-05-05] MEDS: amLODIPine Besylate 10 MG TABLET PO (08:28)
--- NOTE | 2022-05-05 09:40 | MHC.CM.PN ---
PT MEDICALLY CLEARED FOR D/C HOME W/[facility] FOR VNA SERVICES AND FOR TRANSPORT.
--- NOTE | 2022-05-05 09:42 | P.F2F_ITS ---
Service Date Service Date: 05/05/22 Encounter Date of encounter: 05/05/22 Reasons for Services Signs and symptoms assessed: Has loop ileostomy after short segment resection of the transverse colon Reason for penitentiary: wound care Homebound: Leaving the home is medically contraindicated at this time without the asist of a device and/or another person due th the listed conditions above and below. Reason homebound: poor balance / fall risk and weakness related to hospital stay Certification: Based on the above findings, I certify that this patient is confined to the home and needs intermittent penitentiary care, physical therapy and/or speech therapy, or continues to need occupational therapy. The patient is under my care, and I have initiated the establishment of the plan of care. The patient will be followed by a physician who will periodically review the plan of care. Time Spent With Patient Time: Total time managing care of this patient today ____ minutes.
--- NOTE | 2022-05-05 09:43 | P.DS_ITS ---
DS: Providers Provider Date of Service: 05/05/22 Date of admission: 04/26/22 18:52 Date of discharge: 05/05/22 Primary care physician: Bimal Lepe MD Consults: 04/26/22 18:03 Consult to General Surgery Stat Consulting Provider: Maribel Wolf Reason for consultation: Abd pain ? obstruction vs ischemic bowel 04/28/22 09:10 Consult to Hospitalist Routine Consulting Provider: Hospitalist Reason For Exam: medical management HTN, DM DS: Diagnosis Discharge Diagnosis (1) Stricture of transverse colon: Status: Acute (2) Benign essential hypertension: Status: Acute DS: Summary Hospital Course Hospital Course: 71-year-old male admitted on April 26, 2021 for abdominal pain, vomiting and distension. Imaging study showed dilated small bowel and colon. No obvious cut off was identified. He had persistent distension without any passage of significant stool, and persistently high NG tube output. I therefore took him to the operating room for a laparotomy last April 29, 2021. He was noted to have a short segment stricture at any mass in the transverse colon. Resection of this was done along with diverting ileostomy for protection. His NG tube was 2 days postop. He had good passage of stool and gas from his ileostomy. He improved steadily. Was tolerating regular diet by his 4th postop day. He has been ambulating and has had good function of his ileostomy. He has been educated on stoma care. Time spent discussing smoking cessation with patient: 3 to 10 minutes Status at Discharge Overall status at discharge: patient is progressing back to baseline Time Spent with Patient Time attestation: Total time managing care of this patient today ____ minutes. Discharge coordination time: Less than 30 minutes Quality: Safe Use of Opioids Does Pt have an Active Cancer Diagnosis on the Problem List?: No Quality: Stroke Does the patient have a stroke diagnosis?: No Physical Exam Vital Signs: Vital Signs: Last Vital Signs Temp 98.4 F 05/05/22 07:49 Pulse 91 05/05/22 07:49 Resp 18 05/05/22 07:49 BP 163/79 H 05/05/22 07:49 Pulse Ox 91 L 05/05/22 07:49 O2 Del Method 05/05/22 07:49 O2 Flow Rate 2 05/04/22 03:45 BMI result Body Mass Index 28.1 Const: General: comfortable and no acute distress Orientation/consciousness : patient oriented x3 Neck: Neck: Yes no lymphadenopathy Resp: Auscultation: clear to auscultation bilaterally Cardio: Rhythm: regular rhythm GI: Other: Midline incision healing well, stoma functioning well Palpation (GI): Soft to palpation, nontender and no guarding Neuro: General: patient oriented x3 DS: Data Data Completed and Pending Pending studies at discharge: Pending at discharge 04/29/22 11:35 Surgical [PTH] Routine Labs on day of discharge: Laboratory Results - last 24 hr 05/04/22 05/04/22 05/04/22 11:05 15:51 20:19 POC Glucose 203 H 186 H 256 H 05/05/22 07:08 POC Glucose 192 H Laboratory Results WBC 12.4 X10*3/uL (4.8-10.8) H 04/30/22 05:12 RBC 5.25 X10*6/uL (4.60-5.80) 04/30/22 05:12 Hgb 13.8 g/dl (14.0-18.0) L 04/30/22 05:12 Hct 43.0 % (42.0-52.0) 04/30/22 05:12 MCV 81.9 fL (80.0-98.0) 04/30/22 05:12 MCH 26.3 pg (27.0-33.0) L 04/30/22 05:12 MCHC 32.1 g/dl (31.0-36.0) 04/30/22 05:12 RDW 13.6 % (11.0-16.0) 04/30/22 05:12 Plt Count 250 X10*3/uL (160-400) 04/30/22 05:12 MPV 10.2 fL (9.4-12.4) 04/30/22 05:12 Immature Gran % (Auto) Cancelled 04/30/22 05:12 Neut % (Auto) Cancelled 04/30/22 05:12 Lymph % (Auto) Cancelled 04/30/22 05:12 [place] % (Auto) Cancelled 04/30/22 05:12 Eos % (Auto) Cancelled 04/30/22 05:12 Baso % (Auto) Cancelled 04/30/22 05:12 Lymph # (Auto) Cancelled 04/30/22 05:12 [place] # (Auto) Cancelled 04/30/22 05:12 Eos # (Auto) Cancelled 04/30/22 05:12 Baso # (Auto) Cancelled 04/30/22 05:12 Abs Immat Gran (auto) Cancelled 04/30/22 05:12 Absolute Neuts (auto) Cancelled 04/30/22 05:12 Absolute Nucleated RBC 0.000 X10*3/uL (0.0-0.012) 04/30/22 05:12 Nucleated RBC % (auto) 0.0 /100WBC (0.0-0.2) 04/30/22 05:12 Neutrophils % (Manual) 72 % (45-73) 04/30/22 05:12 Band Neutrophils % 22 % (3-5) H 04/30/22 05:12 Lymphocytes % (Manual) 2 % (20-40) L 04/30/22 05:12 Monocytes % (Manual) 4 % (2-11) 04/30/22 05:12 Basophils % (Manual) 1 % (0-2) 04/27/22 07:16 Abs Neuts (Manual) 11.7 X10*3/uL (2.0-8.3) H 04/30/22 05:12 Lymphocytes # (Manual) 0.2 X10*3/uL (1.2-4.9) L 04/30/22 05:12 Monocytes # (Manual) 0.5 X10*3/uL (0.1-1.2) 04/30/22 05:12 Basophils # (Manual) 0.1 X10*3/uL (0.0-0.2) 04/27/22 07:16 Toxic Vacuolation PRESENT 04/27/22 07:16 Platelet Estimate NORMAL (NORMAL) 04/30/22 05:12 Large Platelets PRESENT 04/30/22 05:12 Plt Morphology Comment NOTED 04/30/22 05:12 RBC Morphology NOTED 04/30/22 05:12 Polychromasia 1+ (0-2) /OIF 04/27/22 07:16 Microcytosis 1+ (5-14) /OIF 04/27/22 07:16 Ovalocytes 1+ (5-14) /OIF 04/30/22 05:12 Mai Cells 3+ (>5) /OIF 04/30/22 05:12 ESR 7 MM/HR (0-15) 04/26/22 17:22 PT 16.1 SEC (10.0-13.1) H 04/26/22 14:36 INR 1.4 (0.9-1.1) H 04/26/22 14:36 Sodium 144 mmol/L (135-145) 04/30/22 05:12 Potassium 4.5 mmol/L (3.3-5.1) 04/30/22 05:12 Chloride 113 mmol/L (96-108) H 04/30/22 05:12 Carbon Dioxide 18 mmol/L (22-29) L 04/30/22 05:12 Anion Gap 18 (12-20) 04/30/22 05:12 BUN 23 mg/dL (9-16) H 04/30/22 05:12 Creatinine 1.10 mg/dL (0.5-1.4) 04/30/22 05:12 Estim Creat Clear Calc 58.5 04/30/22 05:12 Estimated GFR > 60 04/30/22 05:12 POC Glucose 192 mg/dL (60-115) H 05/05/22 07:08 Random Glucose 128 mg/dL (60-115) H 04/29/22 05:10 Fasting Glucose 170 mg/dL (60-99) H 04/30/22 05:12 Lactic Acid 1.2 mmol/L (0.5-2.0) 04/26/22 17:22 Calcium 7.7 mg/dL (8.4-10.2) L 04/30/22 05:12 Magnesium 2.0 mg/dL (1.6-2.6) 04/29/22 05:10 Total Bilirubin 0.8 mg/dL (0.0-1.0) 04/26/22 14:36 AST 17 U/L (5-37) 04/26/22 14:36 ALT 40 U/L (0-40) 04/26/22 14:36 Alkaline Phosphatase 83 U/L (39-117) 04/26/22 14:36 C-Reactive Protein 14.91 mg/dL (< or = 0.50) H 04/26/22 17:22 Total Protein 6.9 g/dL (6.5-8.0) 04/26/22 14:36 Albumin 4.3 g/dL (3.5-5.0) 04/26/22 14:36 Lipase 10 U/L (8-78) 04/26/22 14:36 Carcinoembryonic Ag 2.50 ng/mL 04/27/22 07:16 Urine Color Dark Yellow 04/26/22 17:21 Urine Appearance Clear 04/26/22 17:21 Urine pH 5.0 (5.0-9.0) 04/26/22 17:21 Ur Specific M[place] >= 1.030 (1.005-1.025) H 04/26/22 17:21 Urine Protein 100 (2+) mg/dL (Neg-Trace) H 04/26/22 17:21 Urine Glucose (UA) Negative mg/dL (Negative) 04/26/22 17:21 Urine Ketones 15 mg/dL (Negative) 04/26/22 17:21 Urine Blood Negative (Negative) 04/26/22 17:21 Urine Nitrite Negative (Negative) 04/26/22 17:21 Ur Leukocyte Esterase Negative (Negative) 04/26/22 17:21 Urine RBC 0-2 /HPF (0-2) 04/26/22 17:21 Urine WBC 0-5 /HPF (0-5) 04/26/22 17:21 Ur Squamous Epith Cells 0-2 /HPF (0-2) 04/26/22 17:21 Urine Bacteria None Seen (None Seen) 04/26/22 17:21 Hyaline Casts 0-2 /LPF (0-2) 04/26/22 17:21 Influenza Type A (PCR) NEGATIVE (Negative) 04/26/22 14:36 Influenza Type B (PCR) NEGATIVE (Negative) 04/26/22 14:36 RSV RNA Qual (PCR) NEGATIVE (Negative) 04/26/22 14:36 SARS-CoV-2 RNA (RT-PCR) NEGATIVE (Negative) 04/26/22 14:36 Blood Type A Positive 04/26/22 17:28 Antibody Screen NEGATIVE 04/26/22 17:28 Impressions Chest X-Ray 04/26/22 18:47 IMPRESSION: 1. Nasogastric tube in stomach. 2. Low lung volume with linear atelectasis at right lung base. Barium Enema 04/27/22 17:30 IMPRESSION: 1. There is contrast extravasation around the rectal tube surrounding the bed sheets and patient distress. 2. There is a dilated small bowel loops and transverse colon. There is no obstructing lesion or stricture seen. Distal ascending colon is patent. Contrast trickled into the proximal ascending colon. Abdomen/Pelvis CT 04/28/22 13:29 IMPRESSION: 1. Multiple dilated small bowel loops with oral contrast administered today. There is no pneumatosis. No free air or free fluid seen. The dilated small bowel loops are unchanged compared 04/26/2022 2. There is no obstructive lesion seen at the IC junction or terminal ileum. 3. Mild dilated proximal ascending colon and cecum is stable. There is no pneumatosis. 4. There is bibasilar and right middle lobe atelectasis/consolidation with small bilateral pleural effusions, stable. Fleischner guidelines were followed. Discharge Plan Discharge Anticipated Discharge Date/Time: 05/04/22 13:11 Patient Disposition: Home Health Service Discharge Diagnosis: transverse colon stricture Referrals: [facility] [Other] - 1 Day ([facility], A NURSE WILL CONTACT YOU TO ARRANGE FIRST VISIT. ) Bimal Lepe MD [Primary Care Provider] - 1 Week Darion Fam MD [Physician] - 2 Weeks Discharge Medications: New amlodipine 10 mg tablet 10 mg PO DAILY Qty: 30 0RF amoxicillin-pot clavulanate [Augmentin] 500-125 mg tablet 1 tab PO BID Qty: 4 0RF oxycodone 5 mg tablet 5 mg PO Q4H PRN (Reason: pain (scale score 7-10)) Qty: 20 0RF Rx Instructions: Partial Fill upon patient request. Continued cholecalciferol (vitamin D3) 25 mcg (1,000 unit) capsule 25 mcg PO DAILY Januvia 100 mg tablet 100 mg PO DAILY 90 Days Qty: 90 1RF metformin 500 mg tablet extended release 24 hr 500 mg PO BID 90 Days Qty: 180 1RF atorvastatin 10 mg tablet 10 mg PO BEDTIME 90 Days Qty: 90 1RF lisinopril 20 mg tablet 20 mg PO DAILY 90 Days Qty: 90 1RF ondansetron 4 mg tablet,disintegrating 4 mg PO Q8H 3 Days Qty: 9 0RF multivitamin Tablet 1 tab PO DAILY cetirizine 10 mg Tablet 10 mg PO DAILY pantoprazole 40 mg tablet,delayed release (DR/EC) 40 mg PO DAILY 30 Days Qty: 30 2RF sucralfate [Carafate] 1 gram tablet 1 g PO BID 10 Days Qty: 20 0RF Discharge Orders: Discharge Order (Routine); Ordered 05/05/22 Ordered By: Darion Fam Diet: Diabetic diet Activity on Discharge: No heavy lifting Stand Alone Forms: Patient Portal Discharge page Activity Restrictions/Additional Instructions: If the incision area is tender, you may apply an ice pack for short intervals (No more than 20 minutes on, followed by at least 20 minutes off). Do not apply heat. Do not use creams, lotions, or topical antibiotics unless instructed to do so by your surgeon. These can cause infection or allergic reaction. Ok to shower. You have sindy closing your incision and these will be removed approximately 10-14 days after surgery. NO HEAVY LIFTING (>10lbs) or strenuous activity. Follow up in office with Dr. Fam. ([phone]) F/u with your PCP regarding your blood pressure. Call Your Doctor If: -Your temperature exceeds 101.5? F -You experience excessive pain or swelling -You have an unexpected reaction to medication -You have excessive bleeding -You experience continued vomiting/nausea -Your incision begins to separate -Your incision shows signs of infection such as increased redness, swelling, excessive pain, drainage (light blood or clear fluid is normal) or heat Care Plan Goals: Return to baseline health and gradual return to activity following recovery period. Health Concerns: Diabetes mellitus Hypertension Transverse colon stricture Bowel obstruction Plan of Treatment: S/p transverse colon resection, loop ileostomy VNA services F/u in office Assessment: Doing well post op
[2022-05-05] MEDS: 0.9 % Sodium Chloride Flush 3 ML SYRINGE IVFLUSH (10:29)
[2022-05-05 11:36] LABS: Glucose, Whole Blood 235 mg/dL (60-115)
== END 2022-05-05 13:26 | disposition home health service (06) | DRG 230 ==
LOC: HO.ED 17:49 → HO.EDOVER 19:05 → HO.S3 04-27 12:36
PROVIDERS: Physician Assistant; Physician Assistant Medical; Physician Assistant Surgical; Admitting Provider Surgery; Emergency Provider Internal Medicine; PCP Internal Medicine; Visit Provider Surgery
PROC: 0D1B0Z4 Bypass Ileum to Cutaneous, Open Approach (ICD-10-PCS; CPT 49000; principal; 2022-04-29 10:00)
DX: K56.699 Other intestinal obstruction unspecified as to partial versus complete obstruction (principal); E11.9 Type 2 diabetes mellitus without complications; E78.00 Pure hypercholesterolemia, unspecified; Z20.822 Contact with and (suspected) exposure to COVID-19; Z79.84 Long term (current) use of oral hypoglycemic drugs; Z79.899 Other long term (current) drug therapy
CPT/HCPCS: 0241U; 36415; 71045; 71046; 74176; 74270; 80048; 80053; 81001; 82378; 82947; 83605; 83690; 83735; 85007; 85025; 85027; 85610; 85652; 86140; 86850; 86900; 86901; 87040; 88307; 88341; 88342; 99285; C1758; J0131; J0690; J1170; J1643; J2250; J2270; J2370; J2405; J2543; J3010

== ENCOUNTER → 2022-05-13 14:14 | Outpatient (BNVA) | payer OTHER, MEDICARE, SELFPAY | PROVIDERS: PCP Internal Medicine; Visit Provider Surgery | DX: Z13.89 Encounter for screening for other disorder (principal) ==

== ENCOUNTER 2022-05-28 09:49 | Inpatient (IN) | payer OTHER, MEDICARE, SELFPAY ==
[2022-05-28] VITALS (9 sets, daily range): BP systolic 73–131; BP diastolic 38–58; PULSE 78–100; RESP 14–19; TEMP 36.3–36.7; O2SAT 98–100; BMI 23.6
--- NOTE | ~2022-05-28 | CT_ITS ---
EXAMINATION: CT ABDOMEN AND PELVIS WITHOUT CONTRAST CLINICAL INFORMATION: Abdominal pain. Colon cancer. Acute kidney injury. COMPARISON: CT abdomen pelvis 04/28/2022 TECHNIQUE: Multidetector volumetric imaging was performed from the superior aspect of the liver through the pubic symphysis. Sagittal and coronal reformatted images were obtained on the technologist's workstation. This CT examination was performed using dose optimization techniques as appropriate, variously including the following: *Automated exposure control *Adjustment of mA and/or kV according to patient size (this includes techniques or standardized protocols for targeted exams where dose is matched to indication/reason for exam; i.e. extremities or head) *Use of iterative reconstruction technique DLP: 420 mGy-cm FINDINGS: LUNG BASES: The visualized lung bases are unremarkable. LIVER, GALLBLADDER, AND BILIARY TREE: 1.5 cm low attenuating lesion segment 8 of the liver. This is unchanged since CAT scan 04/09/2022. No additional liver lesion. No intrahepatic bile duct dilatation. The gallbladder is unremarkable with no evidence of radiopaque gallstones, gallbladder wall thickening, or obvious pericholecystic inflammatory changes. PANCREAS: Unremarkable. SPLEEN: Unremarkable. ADRENAL GLANDS: Unremarkable. KIDNEYS AND URETERS: The kidneys are normal in size, shape, and attenuation. No hydronephrosis, hydroureter, or calculi seen. No perinephric stranding. BLADDER: Unremarkable. ABDOMINAL WALL/GASTROINTESTINAL TRACT: Status post ileostomy through the anterior abdominal wall. There are now surgical sutures associated with the hepatic flexure of the colon with some surrounding edema consistent with postoperative changes. No abscess or evidence of perforation. Midline surgical incision at the abdominal wall is intact with no herniation, fluid collection or abscess. LYMPH NODES: Normal. VASCULAR: Scattered vascular calcifications of aorta and iliac arteries. There is no aneurysm. PELVIC VISCERA: Prostate measures 4.7 cm transverse. OSSEOUS STRUCTURES: No suspicious osseous lesions. Mild degenerative spondylosis of the spine. CT/CT abdomen pelvis wo IV con IMPRESSION: 1. Status post ileostomy through the anterior abdominal wall. Postsurgical changes at the hepatic flexure of the colon. No abscess or evidence of perforation. 2. Stable 1.5 cm low attenuating lesion in the right lobe of liver unchanged since CAT scan 04/09/2022. Fleischner guidelines were followed.
--- NOTE | 2022-05-28 10:16 | ECG_ITS ---
Test Reason : HYPOTENSION Blood Pressure : / mmHG Vent. Rate : 082 BPM Atrial Rate : 082 BPM P-R Int : 184 ms QRS Dur : 082 ms QT Int : 318 ms P-R-T Axes : 051 -05 030 degrees QTc Int : 371 ms Normal sinus rhythm Low voltage QRS Borderline ECG When compared to the previous EKG of Premature ventricular complexes not present Referred By: Lety Garber Electronically Signed By:Drew Thomas
[2022-05-28] MEDS: 0.9 % Sodium Chloride 1,000 ML 999 ML IV ×4 (10:22→13:47)
--- NOTE | 2022-05-28 10:23 | ED_ITS ---
HPI - General Adult General Chief complaint: Abdominal Pain <Lety GarberMENDY - Last Filed: 05/28/22 19:10> Stated complaint: Low blood pressure <Lety GarberMENDY - Last Filed: 05/28/22 19:10> Time Seen by Provider: 05/28/22 10:07 <Lety LopesMENDY luther - Last Filed: 05/28/22 19:10> Source: patient and family <Lety GarberMENDY - Last Filed: 05/28/22 19:10> Mode of arrival: ambulatory <Lety GarberMENDY - Last Filed: 05/28/22 19:10> Limitations: no limitations <Lety GarberMENDY - Last Filed: 05/28/22 19:10> History of Present Illness HPI narrative: Patient is a 71-year-old male who presents to emergency department with his . Patient has been feeling generally weak over the past few days, reports that she contacted his oncologist 3 days ago, he came in to have IV fluids administered. Over the past couple of days he has continued to be weak, poor p.o. intake, vomiting since yesterday. Visiting nurse arrived to the home today to check his blood pressure which was reading low 80s systolic, and therefore was referred to the emergency department. Reports recent colon cancer diagnosis, not yet started on chemotherapy, he is awaiting port placement. Denies any known sick contacts. Denies any fevers, chills, chest pain, shortness of breath, difficulty breathing, dizziness, headache, dysuria, urinary frequency, constipation, diarrhea, hematochezia, melena. <Lety LopesMENDY luther - Last Filed: 05/28/22 19:10> Related Data Home medications: Home Medications Medication Instructions Recorded Confirmed cholecalciferol (vitamin D3) 25 25 mcg PO DAILY 03/10/20 05/28/22 mcg (1,000 unit) capsule multivitamin 1 tab PO DAILY 04/26/22 05/28/22 cetirizine 10 mg tablet 10 mg PO DAILY 05/28/22 05/28/22 pantoprazole 40 mg tablet,delayed 40 mg PO DAILY 05/28/22 05/28/22 release Previous Rx's Medication Instructions Recorded sitagliptin phosphate 100 mg 100 mg PO DAILY 90 days #90 tabs 10/27/21 tablet (Januvia) metformin 500 mg tablet,extended 500 mg PO BID 90 days #180 tabs 11/02/21 release 24 hr atorvastatin 10 mg tablet 10 mg PO BEDTIME 90 days #90 tabs 02/03/22 lisinopril 20 mg tablet 20 mg PO DAILY 90 days #90 tabs 02/03/22 amlodipine 10 mg tablet 10 mg PO DAILY #30 tabs 05/04/22 blood sugar diagnostic (FreeStyle #100 ea 05/17/22 Test strips) <Lety Garber CNP - Last Filed: 05/28/22 19:10> Allergies/adverse reactions: Allergies Allergy/AdvReac Type Severity Reaction Status Date / Time No Known Allergies Allergy Verified 04/25/22 17:01 [No Known Allergies*] <Lety Garber CNP - Last Filed: 05/28/22 19:10> Review of Systems Review of Systems: Constitutional : No Weight loss, No Fever, No Chills ENT/Mouth :? No sore throat, No Rhinorrhea Eyes: No Swelling, No Redness Cardiovascular : No Chest Pain, No SOB, No Edema Respiratory : No Cough, No Sputum, No Wheezing Gastrointestinal : Positive Nausea, Positive Vomiting, no Diarrhea, no abdominal pain, No Hematochezia, No Melena Genitourinary : No Dysuria, No Urinary Frequency, No Hematuria, No Urgency? Musculoskeletal : No joint pain, No Myalgias, No Joint Swelling Skin : No Skin Lesions, No rash Neuro : Positive Weakness, No Numbness, No Dizziness, No Headache Psych : No Anxiety/Panic, No Depression <Lety Garber CNP - Last Filed: 05/28/22 19:10> Yes all other systems are reviewed and are negative <Lety Garber CNP - Last Filed: 05/28/22 19:10> FOR[facility]LY [facility], [facility] Past Medical History Attestation statement: The following information was validated with the patient. <Lety Garber CNP - Last Filed: 05/28/22 19:10> Source: old records reviewed <Lety Garber CNP - Last Filed: 05/28/22 19:10> Medical History: Medical History Benign essential hypertension Colon cancer Diabetes mellitus Overweight (BMI 25.0-29.9) Pure hypercholesterolemia Syncope Vitamin D deficiency <Lety Garber CNP - Last Filed: 05/28/22 19:10> Surgical History: Surgical History History of colonoscopy <Lety Garber CNP - Last Filed: 05/28/22 19:10> Family History Family History: Family History (Updated 05/19/22 @ 10:08 by Layla Terrell MD) Father Diabetes Hypertension Mother Diabetes Hypertension Mother Colon cancer Unknown Colon cancer Daughter Breast cancer <Lety Garber CNP - Last Filed: 05/28/22 19:10> Social History Social History: Social History (Updated 05/19/22 @ 09:51 by Simran Eric) Household Members: Spouse Housing: House Do you presently have visiting nurse or other home services: No Alcohol intake: unknown Patient Tobacco Use Status: Never used Tobacco Smoked in Last 30 Days: No e-Cigarette/Vaping Use: Never Used Second Hand Smoke Exposure: No Use of substances other than those prescribed or required for medical reasons: Unknown Advance Directives: Yes Advance Directives on File: Yes Advance Directives Date on File: 12/24/21 service: No Current occupational status: retired Cognitive needs: No Hearing needs: No Vision needs: Yes <Lety Garber CNP - Last Filed: 05/28/22 19:10> Physical Exam ED Vital Signs: Vital Signs - 24 hr 05/28/22 09:56 05/28/22 10:34 05/28/22 10:54 Temperature 97.4 F Pulse Rate 100 81 78 Respiratory Rate 19 18 Blood Pressure 73/42 L 102/38 L 101/44 L Pulse Oximetry 100 Oxygen Delivery Method Room Air 05/28/22 14:15 05/28/22 15:23 05/28/22 16:03 Temperature 97.5 F 97.9 F Pulse Rate 81 91 84 Respiratory Rate 14 16 18 Blood Pressure 111/46 L 111/50 L 118/44 L Pulse Oximetry 98 98 98 Oxygen Delivery Method Room Air Room Air Room Air 05/28/22 17:54 05/28/22 19:34 05/28/22 22:00 Temperature 97.6 F 97.7 F 98.1 F Pulse Rate 87 89 90 Respiratory Rate 16 16 16 Blood Pressure 124/55 L 121/51 L 131/58 L Pulse Oximetry 99 98 98 Oxygen Delivery Method Room Air Room Air 05/29/22 00:00 05/29/22 02:00 05/29/22 04:00 Temperature 98.0 F 98.5 F 97.5 F Pulse Rate 85 82 70 Respiratory Rate 16 16 16 Blood Pressure 98/46 L 100/50 L 93/41 L Pulse Oximetry 98 99 98 Oxygen Delivery Method Room Air Room Air Room Air 05/29/22 04:59 05/29/22 06:00 05/29/22 08:10 Temperature 98.8 F 97.9 F Pulse Rate 76 85 85 Respiratory Rate 16 16 14 Blood Pressure 100/47 L 105/52 L 118/54 L Pulse Oximetry 99 99 98 Oxygen Delivery Method Room Air Room Air Room Air BMI result Body Mass Index 23.6 <Lety Garber CNP - Last Filed: 05/28/22 19:10> Vital Signs - 24 hr 05/28/22 09:56 05/28/22 10:34 05/28/22 10:54 Temperature 97.4 F Pulse Rate 100 81 78 Respiratory Rate 19 18 Blood Pressure 73/42 L 102/38 L 101/44 L Pulse Oximetry 100 Oxygen Delivery Method Room Air 05/28/22 14:15 05/28/22 15:23 05/28/22 16:03 Temperature 97.5 F 97.9 F Pulse Rate 81 91 84 Respiratory Rate 14 16 18 Blood Pressure 111/46 L 111/50 L 118/44 L Pulse Oximetry 98 98 98 Oxygen Delivery Method Room Air Room Air Room Air 05/28/22 17:54 05/28/22 19:34 05/28/22 22:00 Temperature 97.6 F 97.7 F 98.1 F Pulse Rate 87 89 90 Respiratory Rate 16 16 16 Blood Pressure 124/55 L 121/51 L 131/58 L Pulse Oximetry 99 98 98 Oxygen Delivery Method Room Air Room Air 05/29/22 00:00 05/29/22 02:00 05/29/22 04:00 Temperature 98.0 F 98.5 F 97.5 F Pulse Rate 85 82 70 Respiratory Rate 16 16 16 Blood Pressure 98/46 L 100/50 L 93/41 L Pulse Oximetry 98 99 98 Oxygen Delivery Method Room Air Room Air Room Air 05/29/22 04:59 05/29/22 06:00 05/29/22 08:10 Temperature 98.8 F 97.9 F Pulse Rate 76 85 85 Respiratory Rate 16 16 14 Blood Pressure 100/47 L 105/52 L 118/54 L Pulse Oximetry 99 99 98 Oxygen Delivery Method Room Air Room Air Room Air BMI result Body Mass Index 23.6 <Jose Antonio Nowak MD - Last Filed: 05/29/22 01:20> Appearance: Alert.?Oriented to person, place and time. No acute distress.?Normal affect. Eyes: Pupils equal, round and reactive to light.? ENT: Pharynx normal.?? Neck: Normal inspection.? Neck supple.?? CVS: Heart sounds normal. Normal heart rate and rhythm.? Pulses normal.?? Respiratory: No respiratory distress.? Lung sounds clear to auscultation bilaterally?? Abdomen: Soft and non-tender. Normoactive bowel sounds. No pulsatile mass.?? Skin: Skin warm and dry.? Normal skin color.? ? Extremities: No lower extremity edema.? Neuro: Moves all extremities spontaneously. Sensation intact bilaterally. CN II- XII intact. No focal neuro deficits. Ambulates with normal steady gait. <Lety Garber CNP - Last Filed: 05/28/22 19:10> Course Course Course Narrative: 1 am Patient to stay in the ER as observation to be seen by illuminating engineer and correctional lieutenant in the morning repeat labs showed potassium of 5.8 creatinine of 8.45 BUN 140 bicarb of 15 will continue IV hydration, MARILYNN likely from high output ileostomy done on 04/29/19. <Jose Antonio Nowak MD - Last Filed: 0 05/29/22 01:20> Reevaluation(s) Reevaluation #1: CBC revealing a mild leukocytosis with left shift, microcytic anemia. Received call from lab, critical values; potassium 6.8, bicarb 9, creatinine 10.0 for consistent with a metabolic acidosis. Lactic acid is within normal limits. Troponin 17.0, EKG revealing normal sinus rhythm with ventricular rate of 82, normal HI eye, QTC 371, no ST elevation, no ST depression, no T-wave inversion, no acute hyperkalemia changes. Patient receive D50 25 g, insulin reg ular 5 units IV, sodium bicarb 50 mEq IV, calcium gluconate 2 g IV. Will provide patient with additional 2 L normal saline, abdominal examination is overall benign, no active nausea or vomiting at this time, ileostomy remains with normal output, patient declines inability to void, has been urinating over the past couple days and today without issue. Will obtain CT of the abdomen and pelvis, does not appear consistent with bowel obstruction as he has normal ileostomy output and a benign exam, therefore will obtain CT without oral contrast at this time. Discussed this case with ED attending Dr. Andujar. Agrees with plan of care. <Lety Garber CNP - Last Filed: 05/28/22 19:10> Time: 12:00 <Lety Garber CNP - Last Filed: 05/28/22 19:10> Reevaluation #2: Received call from lab, repeat potassium of 7.0, bicarb 10, creatinine 9.3, venous blood gas consistent with compensating metabolic acidosis pH 7.21, CO2 23.6, HCO3 9. BP stable 111/46. CT abdomen and pelvis is pending. <Anna Garber CNP - Last Filed: 05/28/22 19:10> Time: 13:45 <Lety Garber CNP - Last Filed: 05/28/22 19:10> Reevaluation #3: Consulted with correctional lieutenant, Dr. Sandy, Collins catheter placed, sodium bicarb drip ordered, if patient is able to produce urinary output, at that time intense this feels patient would be appropriate for admission to telemetry. <Lety Garber CNP - Last Filed: 05/28/22 19:10> Time: 15:00 <Lety Garber CNP - Last Filed: 05/28/22 19:10> Additional Reevaluation(s): 1700: Patient with urinary output from Collins catheter, approximately [address] of the abdomen and pelvis shows s/p ileostomy with postsurgical changes no evidence of abscess, perforation, obstruction, unchanged lesion of the liver. At this time Will consult with hospitalist, Dr. Martins, for admission to medicine service as discussed with attending. 1814: Repeat venous pH improving 7.27, HC03 11. Consulted with Nephrology, Dr Caio Hinson, advised most likely to need dialysis if no significant improvement in renal function or hyperkalemia on repeat. 1829: Creatinine 8.71, potassium 5.9, bicarb 11. Nephrology at this time recommends holding off on dialysis. Recommend Q 4 hour lab monitoring. Will speak with correctional lieutenant again Dr. Sandy, and hospitalist Dr. Martins to coordinate admission. 1899: Spoke with correctional lieutenant Dr. Sandy, recommends patient be admitted to ICU at this time, however no ICU beds are available. He advised that if patient is not admitted to ICU should either remain in ED for continued management, or consider transfer out of hospital. Reviewed case at this time with ED attending Dr. Nowak, patient will remain on bicarb drip, repeat basic metabolic panel 22:00. Patient signed out to Dr. Nowak <Lety Garber, MENDY - Last Filed: 05/28/22 19:10> Medications Administered Generic Name Dose Route Start Last Admin Trade Name Freq PRN Reason Stop Dose Admin Sodium Bicarbonate 150 meq/ 1,000 mls @ 100 mls/hr 05/28/22 15:00 05/29/22 00 :10 Dextrose IV 100 mls/hr .Q10H SOFIA Administration Discontinued Medications Generic Name Dose Route Start Last Admin Trade Name Freq PRN Reason Stop Dose Admin Dextrose 25 gm 05/28/22 12:03 05/28/22 12:18 Dextrose 50 % 25 Gm/50 Ml Syringe IVPUSH 05/28/22 12:04 25 gm ONCE ONE Administration Sodium Chloride 1,000 mls @ 999 mls/hr 05/28/22 10:15 05/28/22 10:45 Ns IV 05/28/22 11:15 Infused .Q1H1M SOFIA Infusion Sodium Chloride 1,000 mls @ 999 mls/hr 05/28/22 10:45 05/28/22 14:19 Ns IV 05/28/22 11:45 Infused .Q1H1M SOFIA Infusion Calcium Gluconate 2 gm in 100 mls @ 50 mls/hr 05/28/22 12:03 05/28/22 14:17 Calcium Gluconate IV 05/28/22 14:02 Infused ONCE ONE Infusion Sodium Chloride 1,000 mls @ 999 mls/hr 05/28/22 12:45 05/28/22 14:17 Ns IV 05/28/22 14:45 Infused .Q1H1M SOFIA Infusion Lactated Ringer's 1,000 mls @ 150 mls/hr 05/29/22 01:30 05/29/22 08:29 Lr IVCONT Infused .Q6H40M SOFIA Infusion Insulin Human Regular 5 unit 05/28/22 12:03 05/28/22 12:18 Insulin Regular, Human 100 Unit/Ml 3 Ml Vial IVPUSH 05/28/22 12:04 5 unit ONCE ONE Administration Ondansetron HCl 4 mg 05/28/22 10:15 05/28/22 10:24 Ondansetron Hcl 4 Mg/2 Ml Vial IVPUSH 05/28/22 10:16 4 mg ONCE ONE Administration Sodium Bicarbonate 50 meq 05/28/22 12:03 05/28/22 12:18 Sodium Bicarbonate 8.4% 50 Meq/50 Ml Syringe IVPUSH 05/28/22 12:04 50 meq ONCE ONE Administration Sodium Zirconium Cyclosilicate 10 gm 05/28/22 17:58 05/28/22 18:18 Sodium Zirconium Cyclosilicate 10 Gm Powd.Pack PO 05/28/22 17:59 10 gm ONCE ONE Administration <Lety Garber, PHOTO PRODUCER - Last Filed: 05/28/22 19:10> Medications Administered Generic Name Dose Route Start Last Admin Trade Name Freq PRN Reason Stop Dose Admin Sodium Bicarbonate 150 meq/ 1,000 mls @ 100 mls/hr 05/28/22 15:00 05/29/22 00:10 Dextrose IV 100 mls/hr .Q10H SOFIA Administration Discontinued Medications Generic Name Dose Route Start Last Admin Trade Name Freq PRN Reason Stop Dose Admin Dextrose 25 gm 05/28/22 12:03 05/28/22 12:18 Dextrose 50 % 25 Gm/50 Ml Syringe IVPUSH 05/28/22 12:04 25 gm ONCE ONE Administration Sodium Chloride 1,000 mls @ 999 mls/hr 05/28/22 10:15 05/28/22 10:45 Ns IV 05/28/22 11:15 Infused .Q1H1M SOFIA Infusion Sodium Chloride 1,000 mls @ 999 mls/hr 05/28/22 10:45 05/28/22 14:19 Ns IV 05/28/22 11:45 Infused .Q1H1M SOFIA Infusion Calcium Gluconate 2 gm in 100 mls @ 50 mls/hr 05/28/22 12:03 05/28/22 14:17 Calcium Gluconate IV 05/28/22 14:02 Infused ONCE ONE Infusion Sodium Chloride 1,000 mls @ 999 mls/hr 05/28/22 12:45 05/28/22 14:17 Ns IV 05/28/22 14:45 Infused .Q1H1M SOFIA Infusion Lactated Ringer's 1,000 mls @ 150 mls/hr 05/29/22 01:30 05/29/22 08:29 Lr IVCONT Infused .Q6H40M SOFIA Infusion Insulin Human Regular 5 unit 05/28/22 12:03 05/28/22 12:18 Insulin Regular, Human 100 Unit/Ml 3 Ml Vial IVPUSH 05/28/22 12:04 5 unit ONCE ONE Administration Ondansetron HCl 4 mg 05/28/22 10:15 05/28/22 10:24 Ondansetron Hcl 4 Mg/2 Ml Vial IVPUSH 05/28/22 10:16 4 mg ONCE ONE Administration Sodium Bicarbonate 50 meq 05/28/22 12:03 05/28/22 12:18 Sodium Bicarbonate 8.4% 50 Meq/50 Ml Syringe IVPUSH 05/28/22 12:04 50 meq ONCE ONE Administration Sodium Zirconium Cyclosilicate 10 gm 05/28/22 17:58 05/28/22 18:18 Sodium Zirconium Cyclosilicate 10 Gm Powd.Pack PO 05/28/22 17:59 10 gm ONCE ONE Administration <Jose Antonio Nowak MD - Last Filed: 05/29/22 01:20> Medical Decision Making Medical Decision Making MDM Narrative: Patient is a 71-year-old male with past medical history of hypertension, diabetes, hyperlipidemia, recent diagnosis of colon cancer presenting to emergency department for evaluation of hypotension weakness, nausea/vomiting. Patient was admitted to [facility] 04/26/2022, found to have dilated small bowel and colon, underwent laparotomy revealing stricture and mass of the transverse colon underwent resection and had ileostomy placed. Patient seen by General surgery Dr. Fam is 05/13/2022, pathology revealing adenocarcinoma T4 NO with recommendations for chemotherapy, therefore he was referred to oncology Dr. Terrell, seen 05/19/2022; with recommendation for chemotherapy, awaiting med port placement and PET-CT scan for staging, has follow-up scheduled in 2 weeks. At the time of examination Patient noted to be hypotensive and tachycardic, meeting SIRS criteria, blood cultures and lactic acid ordered at this time, although I suspect this is secondary to hypovolemia at this time. Patient to receive normal saline 1 L IV fluid bolus, ondansetron IV for nausea. Will obtain CBC to evaluate for leukocytosis/ anemia, CMP and lipase to evaluate for abnormal electrolytes /abnormal renal function/ abnormal hepatic/biliary function, EKG and troponin to evaluate for ischemia/ACS, and Urinalysis. <Lety Garber CNP - Last Filed: 05/28/22 19:10> Differential Diagnosis Differential Diagnoses: The differential diagnosis associated with the presentation includes (Viral gastroenteritis, bowel obstruction, metastasis, ACS, dehydration, viral upper respiratory infection) <Lety Garber CNP - Last Filed: 05/28/22 19:10> Admission/Observation Consideration of admission/observation: Escalation of care including admission/observation considered (As noted in course) <Lety Garber CNP - Last Filed: 05/28/22 19:10> Consult Healthcare Provider Management of the patient was discussed with: Hospitalist (As noted in course) <Lety Garber CNP - Last Filed: 05/28/22 19:10> Lab Data MDM Lab Attestation statement: I reviewed the patient's lab results. <Lety Garber CNP - Last Filed: 05/28/22 19:10> Result Diagrams: 05/28/22 10:31 05/28/22 10:31 <Lety Garber CNP - Last Filed: 05/28/22 19:10> Labs: Lab Results 05/28/22 05/28/22 05/28/22 Range/Units 10:31 10:31 10:31 WBC 12.1 H (4.8-10.8) X10*3/uL RBC 4.62 (4.60-5.80) X10*6/uL Hgb 12.0 L (14.0-18.0) g/dl Hct 36.7 L (42.0-52.0) % MCV 79.4 L (80.0-98.0) fL MCH 26.0 L (27.0-33.0) pg MCHC 32.7 (31.0-36.0) g/dl RDW 14.2 (11.0-16.0) % Plt Count 186 D (160-400) X10*3/uL MPV 10.5 (9.4-12.4) fL Immature Gran % (Auto) 0.6 H (0.0-0.4) % Neut % (Auto) 84.6 H (45-73) % Lymph % (Auto) 8.0 L (20-40) % Benson % (Auto) 6.0 (2-11) % Eos % (Auto) 0.3 (0-4) % Baso % (Auto) 0.5 (0-2) % Lymph # (Auto) 1.0 L (1.2-4.9) X10*3/uL Benson # (Auto) 0.7 (0.1-1.2) X10*3/uL Eos # (Auto) 0.0 (0.0-0.4) X10*3/uL Baso # (Auto) 0.1 (0.0-0.2) X10*3/uL Abs Immat Gran (auto) 0.07 H (0.00-0.03) X10*3/uL Absolute Neuts (auto) 10.2 H (2.0-8.3) x10*3/uL Absolute Nucleated RBC 0.000 (0.0-0.012) X10*3/uL Nucleated RBC % (auto) 0.0 (0.0-0.2) /100WBC VBG pH (7.32-7.43) VBG pCO2 mmHg VBG pO2 mmHg VBG HCO3 (22-26) mmol/L VBG O2 Saturation % VBG Base Excess mmol/L Sodium 130 L (135-145) mmol/L Potassium 6.8 H* D (3.3-5.1) mmol/L Chloride 101 (96-108) mmol/L Carbon Dioxide 9 L* D (22-29) mmol/L Anion Gap 27 H (12-20) BUN 169 H (9-16) mg/dL Creatinine 10.04 H* (0.5-1.4) mg/dL Estim Creat Clear Calc 5.8 Estimated GFR 5 POC Glucose (60-115) mg/dL Random Glucose 191 H (60-115) mg/dL Lactic Acid (0.5-2.0) mmol/L Calcium 9.6 D (8.4-10.2) mg/dL Magnesium 1.8 (1.6-2.6) mg/dL Total Bilirubin 0.4 (0.0-1.0) mg/dL AST 19 (5-37) U/L ALT 67 H (0-40) U/L Alkaline Phosphatase 109 (39-117) U/L Troponin I High Sens 17.0 (<3.5-35.0) ng/L Total Protein 6.6 (6.5-8.0) g/dL Albumin 3.9 (3.5-5.0) g/dL Lipase 219 H (8-78) U/L Urine Color Urine Appearance Urine pH (5.0-9.0) Ur Specific [place] (1.005-1.025) Urine Protein (Neg-Trace) mg/dL Urine Glucose (UA) (Negative) mg/dL Urine Ketones (Negative) mg/dL Urine Blood (Negative) Urine Nitrite (Negative) Ur Leukocyte Esterase (Negative) Urine RBC (0-2) /HPF Urine WBC (0-5) /HPF Ur Squamous Epith Cells (0-2) /HPF Urine Bacteria (None Seen) Hyaline Casts (0-2) /LPF COVID-19 (BRITTNEE) (Negative) COVID-19 Clin Com Influenza Type A (SARAH) (Negative) Influenza Type B (SARAH) (Negative) Influenza A & B Note 05/28/22 05/28/22 05/28/22 Range/Units 10:31 10:34 10:34 WBC (4.8-10.8) X10*3/uL RBC (4.60-5.80) X10*6/uL Hgb (14.0-18.0) g/dl Hct (42.0-52.0) % MCV (80.0-98.0) fL MCH (27.0-33.0) pg MCHC (31.0-36.0) g/dl RDW (11.0-16.0) % Plt Count (160-400) X10*3/uL MPV (9.4-12.4) fL Immature Gran % (Auto) (0.0-0.4) % Neut % (Auto) (45-73) % Lymph % (Auto) (20-40) % Benson % (Auto) (2-11) % Eos % (Auto) (0-4) % Baso % (Auto) (0-2) % Lymph # (Auto) (1.2-4.9) X10*3/uL Benson # (Auto) (0.1-1.2) X10*3/uL Eos # (Auto) (0.0-0.4) X10*3/uL Baso # (Auto) (0.0-0.2) X10*3/uL Abs Immat Gran (auto) (0.00-0.03) X10*3/uL Absolute Neuts (auto) (2.0-8.3) x10*3/uL Absolute Nucleated RBC (0.0-0.012) X10*3/uL Nucleated RBC % (auto) (0.0-0.2) /100WBC VBG pH (7.32-7.43) VBG pCO2 mmHg VBG pO2 mmHg VBG HCO3 (22-26) mmol/L VBG O2 Saturation % VBG Base Excess mmol/L Sodium (135-145) mmol/L Potassium (3.3-5.1) mmol/L Chloride (96-108) mmol/L Carbon Dioxide (22-29) mmol/L Anion Gap (12-20) BUN (9-16) mg/dL Creatinine (0.5-1.4) mg/dL Estim Creat Clear Calc Estimated GFR POC Glucose (60-115) mg/dL Random Glucose (60-115) mg/dL Lactic Acid 0.9 (0.5-2.0) mmol/L Calcium (8.4-10.2) mg/dL Magnesium (1.6-2.6) mg/dL Total Bilirubin (0.0-1.0) mg/dL AST (5-37) U/L ALT (0-40) U/L Alkaline Phosphatase (39-117) U/L Troponin I High Sens (<3.5-35.0) ng/L Total Protein (6.5-8.0) g/dL Albumin (3.5-5.0) g/dL Lipase (8-78) U/L Urine Color Urine Appearance Urine pH (5.0-9.0) Ur Specific [place] (1.005-1.025) Urine Protein (Neg-Trace) mg/dL Urine Glucose (UA) (Negative) mg/dL Urine Ketones (Negative) mg/dL Urine Blood (Negative) Urine Nitrite (Negative) Ur Leukocyte Esterase (Negative) Urine RBC (0-2) /HPF Urine WBC (0-5) /HPF Ur Squamous Epith Cells (0-2) /HPF Urine Bacteria (None Seen) Hyaline Casts (0-2) /LPF COVID-19 ([facility]) Negative (Negative) COVID-19 Clin Com See Note Influenza Type A (SARAH) Negative (Negative) Influenza Type B (SARAH) Negative (Negative) Influenza A & B Note See Note 05/28/22 05/28/22 05/28/22 Range/Units 12:49 13:02 13:21 WBC (4.8-10.8) X10*3/uL RBC (4.60-5.80) X10*6/uL Hgb (14.0-18.0) g/dl Hct (42.0-52.0) % MCV (80.0-98.0) fL MCH (27.0-33.0) pg MCHC (31.0-36.0) g/dl RDW (11.0-16.0) % Plt Count (160-400) X10*3/uL MPV (9.4-12.4) fL Immature Gran % (Auto) (0.0-0.4) % Neut % (Auto) (45-73) % Lymph % (Auto) (20-40) % Benson % (Auto) (2-11) % Eos % (Auto) (0-4) % Baso % (Auto) (0-2) % Lymph # (Auto) (1.2-4.9) X10*3/uL Benson # (Auto) (0.1-1.2) X10*3/uL Eos # (Auto) (0.0-0.4) X10*3/uL Baso # (Auto) (0.0-0.2) X10*3/uL Abs Immat Gran (auto) (0.00-0.03) X10*3/uL Absolute Neuts (auto) (2.0-8.3) x10*3/uL Absolute Nucleated RBC (0.0-0.012) X10*3/uL Nucleated RBC % (auto) (0.0-0.2) /100WBC VBG pH 7.21 L (7.32-7.43) VBG pCO2 24 mmHg VBG pO2 155 mmHg VBG HCO3 9 L (22-26) mmol/L VBG O2 Saturation 99.0 % VBG Base Excess -16.2 mmol/L Sodium 130 L (135-145) mmol/L Potassium 7.0 H* (3.3-5.1) mmol/L Chloride 106 (96-108) mmol/L Carbon Dioxide 10 L* (22-29) mmol/L Anion Gap 21 H (12-20) BUN > 125 H (9-16) mg/dL Creatinine 9.33 H* (0.5-1.4) mg/dL Estim Creat Clear Calc 6.2 Estimated GFR 6 POC Glucose 251 H (60-115) mg/dL Random Glucose 287 H (60-115) mg/dL Lactic Acid (0.5-2.0) mmol/L Calcium 9.7 (8.4-10.2) mg/dL Magnesium (1.6-2.6) mg/dL Total Bilirubin (0.0-1.0) mg/dL AST (5-37) U/L ALT (0-40) U/L Alkaline Phosphatase (39-117) U/L Troponin I High Sens (<3.5-35.0) ng/L Total Protein (6.5-8.0) g/dL Albumin (3.5-5.0) g/dL Lipase (8-78) U/L Urine Color Urine Appearance Urine pH (5.0-9.0) Ur Specific [place] (1.005-1.025) Urine Protein (Neg-Trace) mg/dL Urine Glucose (UA) (Negative) mg/dL Urine Ketones (Negative) mg/dL Urine Blood (Negative) Urine Nitrite (Negative) Ur Leukocyte Esterase (Negative) Urine RBC (0-2) /HPF Urine WBC (0-5) /HPF Ur Squamous Epith Cells (0-2) /HPF Urine Bacteria (None Seen) Hyaline Casts (0-2) /LPF COVID-19 ([facility]) (Negative) COVID-19 Clin Com Influenza Type A (SARAH) (Negative) Influenza Type B (SARAH) (Negative) Influenza A & B Note 05/28/22 05/28/22 05/28/22 Range/Units 18:02 18:02 18:08 WBC (4.8-10.8) X10*3/uL RBC (4.60-5.80) X10*6/uL Hgb (14.0-18.0) g/dl Hct (42.0-52.0) % MCV (80.0-98.0) fL MCH (27.0-33.0) pg MCHC (31.0-36.0) g/dl RDW (11.0-16.0) % Plt Count (160-400) X10*3/uL MPV (9.4-12.4) fL Immature Gran % (Auto) (0.0-0.4) % Neut % (Auto) (45-73) % Lymph % (Auto) (20-40) % Benson % (Auto) (2-11) % Eos % (Auto) (0-4) % Baso % (Auto) (0-2) % Lymph # (Auto) (1.2-4.9) X10*3/uL Benson # (Auto) (0.1-1.2) X10*3/uL Eos # (Auto) (0.0-0.4) X10*3/uL Baso # (Auto) (0.0-0.2) X10*3/uL Abs Immat Gran (auto) (0.00-0.03) X10*3/uL Absolute Neuts (auto) (2.0-8.3) x10*3/uL Absolute Nucleated RBC (0.0-0.012) X10*3/uL Nucleated RBC % (auto) (0.0-0.2) /100WBC VBG pH 7.27 L (7.32-7.43) VBG pCO2 23 mmHg VBG pO2 199 mmHg VBG HCO3 11 L (22-26) mmol/L VBG O2 Saturation 99.0 % VBG Base Excess -13.9 mmol/L Sodium 134 L (135-145) mmol/L Potassium 5.9 H (3.3-5.1) mmol/L Chloride 110 H (96-108) mmol/L Carbon Dioxide 11 L (22-29) mmol/L Anion Gap 19 (12-20) BUN 144 H (9-16) mg/dL Creatinine 8.71 H* (0.5-1.4) mg/dL Estim Creat Clear Calc 6.7 Estimated GFR 6 POC Glucose (60-115) mg/dL Random Glucose 164 H (60-115) mg/dL Lactic Acid (0.5-2.0) mmol/L Calcium 8.6 D (8.4-10.2) mg/dL Magnesium (1.6-2.6) mg/dL Total Bilirubin (0.0-1.0) mg/dL AST (5-37) U/L ALT (0-40) U/L Alkaline Phosphatase (39-117) U/L Troponin I High Sens (<3.5-35.0) ng/L Total Protein (6.5-8.0) g/dL Albumin (3.5-5.0) g/dL Lipase (8-78) U/L Urine Color Dark Yellow Urine Appearance Cloudy Urine pH 5.0 (5.0-9.0) Ur Specific [place] 1.020 (1.005-1.025) Urine Protein 100 (2+) H (Neg-Trace) mg/dL Urine Glucose (UA) Negative (Negative) mg/dL Urine Ketones Negative (Negative) mg/dL Urine Blood Moderate (2+) H (Negative) Urine Nitrite Negative (Negative) Ur Leukocyte Esterase Trace H (Negative) Urine RBC >20 H (0-2) /HPF Urine WBC 11-20 H (0-5) /HPF Ur Squamous Epith Cells 0-2 (0-2) /HPF Urine Bacteria None Seen (None Seen) Hyaline Casts >20 (0-2) /LPF COVID-19 ([facility]) (Negative) COVID-19 Clin Com Influenza Type A (SARAH) (Negative) Influenza Type B (SARAH) (Negative) Influenza A & B Note 05/28/22 05/29/22 Range/Units 22:06 05:03 WBC (4.8-10.8) X10*3/uL RBC (4.60-5.80) X10*6/uL Hgb (14.0-18.0) g/dl Hct (42.0-52.0) % MCV (80.0-98.0) fL MCH (27.0-33.0) pg MCHC (31.0-36.0) g/dl RDW (11.0-16.0) % Plt Count (160-400) X10*3/uL MPV (9.4-12.4) fL Immature Gran % (Auto) (0.0-0.4) % Neut % (Auto) (45-73) % Lymph % (Auto) (20-40) % Benson % (Auto) (2-11) % Eos % (Auto) (0-4) % Baso % (Auto) (0-2) % Lymph # (Auto) (1.2-4.9) X10*3/uL Benson # (Auto) (0.1-1.2) X10*3/uL Eos # (Auto) (0.0-0.4) X10*3/uL Baso # (Auto) (0.0-0.2) X10*3/uL Abs Immat Gran (auto) (0.00-0.03) X10*3/uL Absolute Neuts (auto) (2.0-8.3) x10*3/uL Absolute Nucleated RBC (0.0-0.012) X10*3/uL Nucleated RBC % (auto) (0.0-0.2) /100WBC VBG pH (7.32-7.43) VBG pCO2 mmHg VBG pO2 mmHg VBG HCO3 (22-26) mmol/L VBG O2 Saturation % VBG Base Excess mmol/L Sodium 135 137 (135-145) mmol/L Potassium 5.8 H 5.2 H (3.3-5.1) mmol/L Chloride 106 107 (96-108) mmol/L Carbon Dioxide 15 L 15 L (22-29) mmol/L Anion Gap 20 20 (12-20) BUN 140 H 139 H (9-16) mg/dL Creatinine 8.45 H* 7.62 H* (0.5-1.4) mg/dL Estim Creat Clear Calc 6.9 7.6 Estimated GFR 6 7 POC Glucose (60-115) mg/dL Random Glucose 186 H 176 H (60-115) mg/dL Lactic Acid (0.5-2.0) mmol/L Calcium 8.7 8.4 (8.4-10.2) mg/dL Magnesium (1.6-2.6) mg/dL Total Bilirubin (0.0-1.0) mg/dL AST (5-37) U/L ALT (0-40) U/L Alkaline Phosphatase (39-117) U/L Troponin I High Sens (<3.5-35.0) ng/L Total Protein (6.5-8.0) g/dL Albumin (3.5-5.0) g/dL Lipase (8-78) U/L Urine Color Urine Appearance Urine pH (5.0-9.0) Ur Specific [place] (1.005-1.025) Urine Protein (Neg-Trace) mg/dL Urine Glucose (UA) (Negative) mg/dL Urine Ketones (Negative) mg/dL Urine Blood (Negative) Urine Nitrite (Negative) Ur Leukocyte Esterase (Negative) Urine RBC (0-2) /HPF Urine WBC (0-5) /HPF Ur Squamous Epith Cells (0-2) /HPF Urine Bacteria (None Seen) Hyaline Casts (0-2) /LPF COVID-19 ([facility]) (Negative) COVID-19 Clin Com Influenza Type A (SARAH) (Negative) Influenza Type B (SARAH) (Negative) Influenza A & B Note <Lety Garber, MENDY - Last Filed: 05/28/22 19:10> Lab Results 05/28/22 05/28/22 05/28/22 Range/Units 10:31 10:31 10:31 WBC 12.1 H (4.8-10.8) X10*3/uL RBC 4.62 (4.60-5.80) X10*6/uL Hgb 12.0 L (14.0-18.0) g/dl Hct 36.7 L (42.0-52.0) % MCV 79.4 L (80.0-98.0) fL MCH 26.0 L (27.0-33.0) pg MCHC 32.7 (31.0-36.0) g/dl RDW 14.2 (11.0-16.0) % Plt Count 186 D (160-400) X10*3/uL MPV 10.5 (9.4-12.4) fL Immature Gran % (Auto) 0.6 H (0.0-0.4) % Neut % (Auto) 84.6 H (45-73) % Lymph % (Auto) 8.0 L (20-40) % Benson % (Auto) 6.0 (2-11) % Eos % (Auto) 0.3 (0-4) % Baso % (Auto) 0.5 (0-2) % Lymph # (Auto) 1.0 L (1.2-4.9) X10*3/uL Benson # (Auto) 0.7 (0.1-1.2) X10*3/uL Eos # (Auto) 0.0 (0.0-0.4) X10*3/uL Baso # (Auto) 0.1 (0.0-0.2) X10*3/uL Abs Immat Gran (auto) 0.07 H (0.00-0.03) X10*3/uL Absolute Neuts (auto) 10.2 H (2.0-8.3) x10*3/uL Absolute Nucleated RBC 0.000 (0.0-0.012) X10*3/uL Nucleated RBC % (auto) 0.0 (0.0-0.2) /100WBC VBG pH (7.32-7.43) VBG pCO2 mmHg VBG pO2 mmHg VBG HCO3 (22-26) mmol/L VBG O2 Saturation % VBG Base Excess mmol/L Sodium 130 L (135-145) mmol/L Potassium 6.8 H* D (3.3-5.1) mmol/L Chloride 101 (96-108) mmol/L Carbon Dioxide 9 L* D (22-29) mmol/L Anion Gap 27 H (12-20) BUN 169 H (9-16) mg/dL Creatinine 10.04 H* (0.5-1.4) mg/dL Estim Creat Clear Calc 5.8 Estimated GFR 5 POC Glucose (60-115) mg/dL Random Glucose 191 H (60-115) mg/dL Lactic Acid (0.5-2.0) mmol/L Calcium 9.6 D (8.4-10.2) mg/dL Magnesium 1.8 (1.6-2.6) mg/dL Total Bilirubin 0.4 (0.0-1.0) mg/dL AST 19 (5-37) U/L ALT 67 H (0-40) U/L Alkaline Phosphatase 109 (39-117) U/L Troponin I High Sens 17.0 (<3.5-35.0) ng/L Total Protein 6.6 (6.5-8.0) g/dL Albumin 3.9 (3.5-5.0) g/dL Lipase 219 H (8-78) U/L Urine Color Urine Appearance Urine pH (5.0-9.0) Ur Specific [place] (1.005-1.025) Urine Protein (Neg-Trace) mg/dL Urine Glucose (UA) (Negative) mg/dL Urine Ketones (Negative) mg/dL Urine Blood (Negative) Urine Nitrite (Negative) Ur Leukocyte Esterase (Negative) Urine RBC (0-2) /HPF Urine WBC (0-5) /HPF Ur Squamous Epith Cells (0-2) /HPF Urine Bacteria (None Seen) Hyaline Casts (0-2) /LPF COVID-19 ([facility]) (Negative) COVID-19 Clin Com Influenza Type A (SARAH) (Negative) Influenza Type B (SARAH) (Negative) Influenza A & B Note 05/28/22 05/28/22 05/28/22 Range/Units 10:31 10:34 10:34 WBC (4.8-10.8) X10*3/uL RBC (4.60-5.80) X10*6/uL Hgb (14.0-18.0) g/dl Hct (42.0-52.0) % MCV (80.0-98.0) fL MCH (27.0-33.0) pg MCHC (31.0-36.0) g/dl RDW (11.0-16.0) % Plt Count (160-400) X10*3/uL MPV (9.4-12.4) fL Immature Gran % (Auto) (0.0-0.4) % Neut % (Auto) (45-73) % Lymph % (Auto) (20-40) % Benson % (Auto) (2-11) % Eos % (Auto) (0-4) % Baso % (Auto) (0-2) % Lymph # (Auto) (1.2-4.9) X10*3/uL [place] # (Auto) (0.1-1.2) X10*3/uL Eos # (Auto) (0.0-0.4) X10*3/uL Baso # (Auto) (0.0-0.2) X10*3/uL Abs Immat Gran (auto) (0.00-0.03) X10*3/uL Absolute Neuts (auto) (2.0-8.3) x10*3/uL Absolute Nucleated RBC (0.0-0.012) X10*3/uL Nucleated RBC % (auto) (0.0-0.2) /100WBC VBG pH (7.32-7.43) VBG pCO2 mmHg VBG pO2 mmHg VBG HCO3 (22-26) mmol/L VBG O2 Saturation % VBG Base Excess mmol/L Sodium (135-145) mmol/L Potassium (3.3-5.1) mmol/L Chloride (96-108) mmol/L Carbon Dioxide (22-29) mmol/L Anion Gap (12-20) BUN (9-16) mg/dL Creatinine (0.5-1.4) mg/dL Estim Creat Clear Calc Estimated GFR POC Glucose (60-115) mg/dL Random Glucose (60-115) mg/dL Lactic Acid 0.9 (0.5-2.0) mmol/L Calcium (8.4-10.2) mg/dL Magnesium (1.6-2.6) mg/dL Total Bilirubin (0.0-1.0) mg/dL AST (5-37) U/L ALT (0-40) U/L Alkaline Phosphatase (39-117) U/L Troponin I High Sens (<3.5-35.0) ng/L Total Protein (6.5-8.0) g/dL Albumin (3.5-5.0) g/dL Lipase (8-78) U/L Urine Color Urine Appearance Urine pH (5.0-9.0) Ur Specific [place] (1.005-1.025) Urine Protein (Neg-Trace) mg/dL Urine Glucose (UA) (Negative) mg/dL Urine Ketones (Negative) mg/dL Urine Blood (Negative) Urine Nitrite (Negative) Ur Leukocyte Esterase (Negative) Urine RBC (0-2) /HPF Urine WBC (0-5) /HPF Ur Squamous Epith Cells (0-2) /HPF Urine Bacteria (None Seen) Hyaline Casts (0-2) /LPF COVID-19 ([facility]) Negative (Negative) COVID-19 Clin Com See Note Influenza Type A (SARAH) Negative (Negative) Influenza Type B (SARAH) Negative (Negative) Influenza A & B Note See Note 05/28/22 05/28/22 05/28/22 Range/Units 12:49 13:02 13:21 WBC (4.8-10.8) X10*3/uL RBC (4.60-5.80) X10*6/uL Hgb (14.0-18.0) g/dl Hct (42.0-52.0) % MCV (80.0-98.0) fL MCH (27.0-33.0) pg MCHC (31.0-36.0) g/dl RDW (11.0-16.0) % Plt Count (160-400) X10*3/uL MPV (9.4-12.4) fL Immature Gran % (Auto) (0.0-0.4) % Neut % (Auto) (45-73) % Lymph % (Auto) (20-40) % Benson % (Auto) (2-11) % Eos % (Auto) (0-4) % Baso % (Auto) (0-2) % Lymph # (Auto) (1.2-4.9) X10*3/uL [place] # (Auto) (0.1-1.2) X10*3/uL Eos # (Auto) (0.0-0.4) X10*3/uL Baso # (Auto) (0.0-0.2) X10*3/uL Abs Immat Gran (auto) (0.00-0.03) X10*3/uL Absolute Neuts (auto) (2.0-8.3) x10*3/uL Absolute Nucleated RBC (0.0-0.012) X10*3/uL Nucleated RBC % (auto) (0.0-0.2) /100WBC VBG pH 7.21 L (7.32-7.43) VBG pCO2 24 mmHg VBG pO2 155 mmHg VBG HCO3 9 L (22-26) mmol/L VBG O2 Saturation 99.0 % VBG Base Excess -16.2 mmol/L Sodium 130 L (135-145) mmol/L Potassium 7.0 H* (3.3-5.1) mmol/L Chloride 106 (96-108) mmol/L Carbon Dioxide 10 L* (22-29) mmol/L Anion Gap 21 H (12-20) BUN > 125 H (9-16) mg/dL Creatinine 9.33 H* (0.5-1.4) mg/dL Estim Creat Clear Calc 6.2 Estimated GFR 6 POC Glucose 251 H (60-115) mg/dL Random Glucose 287 H (60-115) mg/dL Lactic Acid (0.5-2.0) mmol/L Calcium 9.7 (8.4-10.2) mg/dL Magnesium (1.6-2.6) mg/dL Total Bilirubin (0.0-1.0) mg/dL AST (5-37) U/L ALT (0-40) U/L Alkaline Phosphatase (39-117) U/L Troponin I High Sens (<3.5-35.0) ng/L Total Protein (6.5-8.0) g/dL Albumin (3.5-5.0) g/dL Lipase (8-78) U/L Urine Color Urine Appearance Urine pH (5.0-9.0) Ur Specific [place] (1.005-1.025) Urine Protein (Neg-Trace) mg/dL Urine Glucose (UA) (Negative) mg/dL Urine Ketones (Negative) mg/dL Urine Blood (Negative) Urine Nitrite (Negative) Ur Leukocyte Esterase (Negative) Urine RBC (0-2) /HPF Urine WBC (0-5) /HPF Ur Squamous Epith Cells (0-2) /HPF Urine Bacteria (None Seen) Hyaline Casts (0-2) /LPF COVID-19 ([facility]) (Negative) COVID-19 Clin Com Influenza Type A (SARAH) (Negative) Influenza Type B (SARAH) (Negative) Influenza A & B Note 05/28/22 05/28/22 05/28/22 Range/Units 18:02 18:02 18:08 WBC (4.8-10.8) X10*3/uL RBC (4.60-5.80) X10*6/uL Hgb (14.0-18.0) g/dl Hct (42.0-52.0) % MCV (80.0-98.0) fL MCH (27.0-33.0) pg MCHC (31.0-36.0) g/dl RDW (11.0-16.0) % Plt Count (160-400) X10*3/uL MPV (9.4-12.4) fL Immature Gran % (Auto) (0.0-0.4) % Neut % (Auto) (45-73) % Lymph % (Auto) (20-40) % [place] % (Auto) (2-11) % Eos % (Auto) (0-4) % Baso % (Auto) (0-2) % Lymph # (Auto) (1.2-4.9) X10*3/uL [place] # (Auto) (0.1-1.2) X10*3/uL Eos # (Auto) (0.0-0.4) X10*3/uL Baso # (Auto) (0.0-0.2) X10*3/uL Abs Immat Gran (auto) (0.00-0.03) X10*3/uL Absolute Neuts (auto) (2.0-8.3) x10*3/uL Absolute Nucleated RBC (0.0-0.012) X10*3/uL Nucleated RBC % (auto) (0.0-0.2) /100WBC VBG pH 7.27 L (7.32-7.43) VBG pCO2 23 mmHg VBG pO2 199 mmHg VBG HCO3 11 L (22-26) mmol/L VBG O2 Saturation 99.0 % VBG Base Excess -13.9 mmol/L Sodium 134 L (135-145) mmol/L Potassium 5.9 H (3.3-5.1) mmol/L Chloride 110 H (96-108) mmol/L Carbon Dioxide 11 L (22-29) mmol/L Anion Gap 19 (12-20) BUN 144 H (9-16) mg/dL Creatinine 8.71 H* (0.5-1.4) mg/dL Estim Creat Clear Calc 6.7 Estimated GFR 6 POC Glucose (60-115) mg/dL Random Glucose 164 H (60-115) mg/dL Lactic Acid (0.5-2.0) mmol/L Calcium 8.6 D (8.4-10.2) mg/dL Magnesium (1.6-2.6) mg/dL Total Bilirubin (0.0-1.0) mg/dL AST (5-37) U/L ALT (0-40) U/L Alkaline Phosphatase (39-117) U/L Troponin I High Sens (<3.5-35.0) ng/L Total Protein (6.5-8.0) g/dL Albumin (3.5-5.0) g/dL Lipase (8-78) U/L Urine Color Dark Yellow Urine Appearance Cloudy Urine pH 5.0 (5.0-9.0) Ur Specific [place] 1.020 (1.005-1.025) Urine Protein 100 (2+) H (Neg-Trace) mg/dL Urine Glucose (UA) Negative (Negative) mg/dL Urine Ketones Negative (Negative) mg/dL Urine Blood Moderate (2+) H (Negative) Urine Nitrite Negative (Negative) Ur Leukocyte Esterase Trace H (Negative) Urine RBC >20 H (0-2) /HPF Urine WBC 11-20 H (0-5) /HPF Ur Squamous Epith Cells 0-2 (0-2) /HPF Urine Bacteria None Seen (None Seen) Hyaline Casts >20 (0-2) /LPF COVID-19 ([facility]) (Negative) COVID-19 Clin Com Influenza Type A (SARAH) (Negative) Influenza Type B (SARAH) (Negative) Influenza A & B Note 05/28/22 05/29/22 Range/Units 22:06 05:03 WBC (4.8-10.8) X10*3/uL RBC (4.60-5.80) X10*6/uL Hgb (14.0-18.0) g/dl Hct (42.0-52.0) % MCV (80.0-98.0) fL MCH (27.0-33.0) pg MCHC (31.0-36.0) g/dl RDW (11.0-16.0) % Plt Count (160-400) X10*3/uL MPV (9.4-12.4) fL Immature Gran % (Auto) (0.0-0.4) % Neut % (Auto) (45-73) % Lymph % (Auto) (20-40) % [place] % (Auto) (2-11) % Eos % (Auto) (0-4) % Baso % (Auto) (0-2) % Lymph # (Auto) (1.2-4.9) X10*3/uL [place] # (Auto) (0.1-1.2) X10*3/uL Eos # (Auto) (0.0-0.4) X10*3/uL Baso # (Auto) (0.0-0.2) X10*3/uL Abs Immat Gran (auto) (0.00-0.03) X10*3/uL Absolute Neuts (auto) (2.0-8.3) x10*3/uL Absolute Nucleated RBC (0.0-0.012) X10*3/uL Nucleated RBC % (auto) (0.0-0.2) /100WBC VBG pH (7.32-7.43) VBG pCO2 mmHg VBG pO2 mmHg VBG HCO3 (22-26) mmol/L VBG O2 Saturation % VBG Base Excess mmol/L Sodium 135 137 (135-145) mmol/L Potassium 5.8 H 5.2 H (3.3-5.1) mmol/L Chloride 106 107 (96-108) mmol/L Carbon Dioxide 15 L 15 L (22-29) mmol/L Anion Gap 20 20 (12-20) BUN 140 H 139 H (9-16) mg/dL Creatinine 8.45 H* 7.62 H* (0.5-1.4) mg/dL Estim Creat Clear Calc 6.9 7.6 Estimated GFR 6 7 POC Glucose (60-115) mg/dL Random Glucose 186 H 176 H (60-115) mg/dL Lactic Acid (0.5-2.0) mmol/L Calcium 8.7 8.4 (8.4-10.2) mg/dL Magnesium (1.6-2.6) mg/dL Total Bilirubin (0.0-1.0) mg/dL AST (5-37) U/L ALT (0-40) U/L Alkaline Phosphatase (39-117) U/L Troponin I High Sens (<3.5-35.0) ng/L Total Protein (6.5-8.0) g/dL Albumin (3.5-5.0) g/dL Lipase (8-78) U/L Urine Color Urine Appearance Urine pH (5.0-9.0) Ur Specific [place] (1.005-1.025) Urine Protein (Neg-Trace) mg/dL Urine Glucose (UA) (Negative) mg/dL Urine Ketones (Negative) mg/dL Urine Blood (Negative) Urine Nitrite (Negative) Ur Leukocyte Esterase (Negative) Urine RBC (0-2) /HPF Urine WBC (0-5) /HPF Ur Squamous Epith Cells (0-2) /HPF Urine Bacteria (None Seen) Hyaline Casts (0-2) /LPF COVID-19 ([facility]) (Negative) COVID-19 Clin Com Influenza Type A (SARAH) (Negative) Influenza Type B (SARAH) (Negative) Influenza A & B Note <Jose Antonio Nowak MD - Last Filed: 05/29/22 01:20> Independent Interpretation I performed an independent interpretation of an: EKG (As noted in course) and CT Scan <Lety Garber CNP - Last Filed: 05/28/22 19:10> Radiology Impression Discussion of test interpretation with radiology: I have reviewed the radiologist's reading. <Lety Garber CNP - Last Filed: 05/28/22 19:10> Radiologist Impression: CT/CT abdomen pelvis wo IV con IMPRESSION: 1.? Status post ileostomy through the anterior abdominal wall. Postsurgical changes at the hepatic flexure of the colon. No abscess or evidence of perforation. 2.? Stable 1.5 cm low attenuating lesion in the right lobe of liver unchanged since CAT scan 04/09/2022. <Lety Garber CNP - Last Filed: 05/28/22 19:10> Critical Care Time Critical Care Time Critical Care Time: Yes <Lety Garber CNP - Last Filed: 05/28/22 19:10> Total Critical Care Time: 60 <Lety Garber CNP - Last Filed: 05/28/22 19:10> Attestation: I personally attest to this critical care time spent taking care of the patient exclusive of all other billable procedures was approximately 60 minutes including initial evaluation of patient, ordering tests, x-ray interpretation, EKG interpretation, medical consultation, documentation, re-evaluation. <Lety Garber CNP - Last Filed: 05/28/22 19:10> Discharge Plan Discharge Clinical Impression: Acute kidney injury, Colon cancer, Acute hyperkalemia <Lety Garber CNP - Last Filed: 05/28/22 19:10> Patient Disposition: Still a Patient <Lety Garber CNP - Last Filed: 05/28/22 19:10> Prescriptions: No Action cholecalciferol (vitamin D3) 25 mcg (1,000 unit) capsule 25 mcg PO DAILY Januvia 100 mg tablet 100 mg PO DAILY 90 Days Qty: 90 1RF metformin 500 mg tablet extended release 24 hr 500 mg PO BID 90 Days Qty: 180 1RF atorvastatin 10 mg tablet 10 mg PO BEDTIME 90 Days Qty: 90 1RF lisinopril 20 mg tablet 20 mg PO DAILY 90 Days Qty: 90 1RF (DME) FreeStyle Test Strip See Rx Instructions .Route Qty: 100 3RF Rx Instructions: As directed multivitamin Tablet 1 tab PO DAILY amlodipine 10 mg tablet 10 mg PO DAILY Qty: 30 0RF pantoprazole 40 mg Tablet,Delayed Release (Dr/Ec) 40 mg PO DAILY cetirizine 10 mg Tablet 10 mg PO DAILY <Lety Garber CNP - Last Filed: 05/28/22 19:10>
[2022-05-28] MEDS: ondansetron HCL 4 MG/2 ML VIAL IVPUSH (10:24)
[2022-05-28 10:41] LABS: MANUAL DIFF FLAG NO
[2022-05-28 10:42] LABS: Basophils Absolute Auto 0.1 X10*3/uL (0.0-0.2); Basophils Percent Auto 0.5 % (0-2); Eosinophils Percent Auto 0.3 % (0-4); Hematocrit 36.7 % (42.0-52.0); Imm Gran Abs Auto 0.07 X10*3/uL (0.00-0.03); Imm Gran Pct Auto 0.6 % (0.0-0.4); Mean Corpuscular HGB Conc 32.7 g/dl (31.0-36.0); Mean Corpuscular Volume 79.4 fL (80.0-98.0); Mean Platelet Volume 10.5 fL (9.4-12.4); Monocytes Absolute Auto 0.7 X10*3/uL (0.1-1.2); Neutrophils Absolute Auto 10.2 x10*3/uL (2.0-8.3); Neutrophils Percent Auto 84.6 % (45-73); Platelet Count 186 X10*3/uL (160-400); Red Blood Count 4.62 X10*6/uL (4.60-5.80); Red Cell Distribution Width 14.2 % (11.0-16.0); White Blood Count 12.1 X10*3/uL (4.8-10.8)
[2022-05-28 10:56] LABS: Lactic Acid 0.9 mmol/L (0.5-2.0)
--- NOTE | 2022-05-28 11:06 | PC.NURSE ---
Patient with recent illeostomy with weakness hypotension. Liquid stool noted denies any bleeding. Patient is cancer patient PO intake poor. Patient denies chest pain or SOB no distress noted. Responsive to fluids will CTM
[2022-05-28 11:13] LABS: COVID-19 Test Negative (Negative); IDNOW Serial# 9DB6401D; IDNOW Serial# BCCEAD1C; Influenza A Negative (Negative); Influenza B2 Negative (Negative)
[2022-05-28 11:31] LABS: Alanine Aminotransferase 67 U/L (0-40); Albumin Level 3.9 g/dL (3.5-5.0); Alkaline Phosphatase 109 U/L (39-117); Aspartate Amino Transferase 19 U/L (5-37); Bilirubin Total 0.4 mg/dL (0.0-1.0); Calcium 9.6 mg/dL (8.4-10.2); Glucose Random 191 mg/dL (60-115); Lipase 219 U/L (8-78); Magnesium 1.8 mg/dL (1.6-2.6); Total Protein 6.6 g/dL (6.5-8.0)
[2022-05-28 12:00] LABS: Anion Gap 27 (12-20); Blood Urea Nitrogen 169 mg/dL (9-16); Carbon Dioxide 9 mmol/L (22-29); Chloride 101 mmol/L (96-108); Creatinine Clr Calc Pharmacy 5.8; Estimated Glomerular Filt Rate 5; Potassium 6.8 mmol/L (3.3-5.1); Sodium 130 mmol/L (135-145)
[2022-05-28] MEDS: Insulin Regular, Human 100 UNIT/ML 3 ML VIAL IVPUSH (12:18)
[2022-05-28] MEDS: Dextrose 50 % 25 GM/50 ML SYRINGE IVPUSH (12:18)
[2022-05-28] MEDS: Calcium Gluconate/NaCl,Iso-Osm 2 GM/100 ML PLAST..BAG IV (12:18)
[2022-05-28] MEDS: Sodium Bicarbonate 8.4% 50 MEQ/50 ML SYRINGE IVPUSH (12:18)
[2022-05-28 13:07] LABS: Glucose, Whole Blood 251 mg/dL (60-115)
[2022-05-28 13:31] LABS: VBG Base Excess -16.2 mmol/L; VBG HCO3 9 mmol/L (22-26); VBG pCO2 24 mmHg; VBG pH 7.21 (7.32-7.43); VBG pO2 155 mmHg
[2022-05-28 13:48] LABS: Anion Gap 21 (12-20); Blood Urea Nitrogen > 125 mg/dL (9-16); Calcium 9.7 mg/dL (8.4-10.2); Carbon Dioxide 10 mmol/L (22-29); Chloride 106 mmol/L (96-108); Creatinine Clr Calc Pharmacy 6.2; Estimated Glomerular Filt Rate 6; Glucose Random 287 mg/dL (60-115); Sodium 130 mmol/L (135-145)
[2022-05-28 13:51] LABS: Venous Blood Gas Refer to POC result
--- NOTE | 2022-05-28 15:24 | MHC.EDTECH ---
this pct assumed care of pt at 1500 ,assist rn with pt kern cath ,vitals sign taken .
[2022-05-28] MEDS: Sodium Bicarbonate 8.4% 150 MEQ in Dextrose 5 % 850 ML 100 MEQ IV (16:03)
--- NOTE | 2022-05-28 16:48 | PC.NURSE ---
Notified TRANSIT SPECIALIST patient tolerating IVF making urine small amount 50 ml
--- NOTE | 2022-05-28 17:39 | P.HPHOSP_ITS ---
History of Present Illness Date of Service: 05/28/22 Attending physician on admission: Charles Martins Chief Complaint: Hypotension, generalized weakness Pt is a 71-year-old male with a PMH significant for recent cancer diagnosis who presents to the ED with? In the ED hypotensive at 73/42 at time presentation. Labs were significant for leukocytosis of 12.1, H&H of 12.0/36.7, hyponatremia 130, hyperkalemia 6.8 with repeat 7.0, carbon dioxide of 9 with repeat of 10, VBG with pH of 7.21 and HC03 of 9. CXR showed CT? EKG demonstrates Pt was treated with Pt will be admitted to the hospital [facility] Medical History Benign essential hypertension Colon cancer Diabetes mellitus Overweight (BMI 25.0-29.9) Pure hypercholesterolemia Syncope Vitamin D deficiency Family History (Updated 05/19/22 @ 10:08 by Layla Terrell MD) Father Diabetes Hypertension Mother Diabetes Hypertension Mother Colon cancer Unknown Colon cancer Daughter Breast cancer Surgical History History of colonoscopy Social History (Updated 05/19/22 @ 09:51 by Simran Eric) Household Members: Spouse Housing: House Do you presently have visiting nurse or other home services: No Alcohol intake: unknown Patient Tobacco Use Status: Never used Tobacco Smoked in Last 30 Days: No e-Cigarette/Vaping Use: Never Used Second Hand Smoke Exposure: No Use of substances other than those prescribed or required for medical reasons: Unknown Advance Directives: Yes Advance Directives on File: Yes Advance Directives Date on File: 12/24/21 service: No Current occupational status: retired Cognitive needs: No Hearing needs: No Vision needs: Yes Meds Allergies Allergy/AdvReac Type Severity Reaction Status Date / Time No Known Allergies Allergy Verified 04/25/22 17:01 [No Known Allergies*] Active Medications: Current Medications Sodium Bicarbonate 150 meq/ (Dextrose) 1,000 mls @ 100 mls/hr IV .Q10H SOFIA Last Admin: 05/28/22 16:03 Dose: 100 mls/hr Pharmacy Consult (Consult Rx Perform Med Rec) 1 each MISCELLANE ONCE PRN PRN Reason: Consult order Home Medications Medication Instructions Recorded Confirmed Last Taken Type cholecalciferol (vitamin D3) 25 25 mcg PO DAILY 03/10/20 05/19/22 04/26/22 History mcg (1,000 unit) capsule cetirizine 10 mg tablet 10 mg PO DAILY 04/26/22 05/19/22 04/25/22 History multivitamin 1 tab PO DAILY 04/26/22 05/19/22 04/25/22 History Physical Exam Vital Signs and Narrative: Vital Signs: Last Vital Signs Temp 97.9 F 05/28/22 15:23 Pulse 84 05/28/22 16:03 Resp 18 05/28/22 16:03 BP 118/44 L 05/28/22 16:03 Pulse Ox 98 05/28/22 16:03 O2 Del Method 05/28/22 16:03 BMI result Body Mass Index 23.6 Results Labs 05/28/22 10:31 05/28/22 12:49 Labs: Laboratory Results - last 24 hr 05/28/22 05/28/22 05/28/22 10:31 10:31 10:31 MCV 79.4 L MCH 26.0 L MCHC 32.7 RDW 14.2 Plt Count 186 D MPV 10.5 Immature Gran % (Auto) 0.6 H Neut % (Auto) 84.6 H Lymph % (Auto) 8.0 L Runn[place] % (Auto) 6.0 Eos % (Auto) 0.3 Baso % (Auto) 0.5 Lymph # (Auto) 1.0 L R[place] # (Auto) 0.7 Eos # (Auto) 0.0 Baso # (Auto) 0.1 Abs Immat Gran (auto) 0.07 H Absolute Neuts (auto) 10.2 H Absolute Nucleated RBC 0.000 Nucleated RBC % (auto) 0.0 VBG pH VBG pCO2 VBG pO2 VBG HCO3 VBG O2 Saturation VBG Base Excess Anion Gap 27 H Estim Creat Clear Calc 5.8 Estimated GFR 5 POC Glucose Random Glucose 191 H Lactic Acid Calcium 9.6 D Magnesium 1.8 Total Bilirubin 0.4 AST 19 ALT 67 H Alkaline Phosphatase 109 Troponin I High Sens 17.0 Total Protein 6.6 Albumin 3.9 Lipase 219 H COVID-19 ([facility]) COVID-19 Clin Com Influenza Type A (SARAH) Influenza Type B (SARAH) Influenza A & B Note 05/28/22 05/28/22 05/28/22 10:31 10:34 10:34 MCV MCH MCHC RDW Plt Count MPV Immature Gran % (Auto) Neut % (Auto) Lymph % (Auto) Runnels % (Auto) Eos % (Auto) Baso % (Auto) Lymph # (Auto) Runnels # (Auto) Eos # (Auto) Baso # (Auto) Abs Immat Gran (auto) Absolute Neuts (auto) Absolute Nucleated RBC Nucleated RBC % (auto) VBG pH VBG pCO2 VBG pO2 VBG HCO3 VBG O2 Saturation VBG Base Excess Anion Gap Estim Creat Clear Calc Estimated GFR POC Glucose Random Glucose Lactic Acid 0.9 Calcium Magnesium Total Bilirubin AST ALT Alkaline Phosphatase Troponin I High Sens Total Protein Albumin Lipase COVID-19 ([facility]) Negative COVID-19 Clin Com See Note Influenza Type A (SARAH) Negative Influenza Type B (SARAH) Negative Influenza A & B Note See Note 05/28/22 05/28/22 05/28/22 12:49 13:02 13:21 MCV MCH MCHC RDW Plt Count MPV Immature Gran % (Auto) Neut % (Auto) Lymph % (Auto) Runnels % (Auto) Eos % (Auto) Baso % (Auto) Lymph # (Auto) Runnels # (Auto) Eos # (Auto) Baso # (Auto) Abs Immat Gran (auto) Absolute Neuts (auto) Absolute Nucleated RBC Nucleated RBC % (auto) VBG pH 7.21 L VBG pCO2 24 VBG pO2 155 VBG HCO3 9 L VBG O2 Saturation 99.0 VBG Base Excess -16.2 Anion Gap 21 H Estim Creat Clear Calc 6.2 Estimated GFR 6 POC Glucose 251 H Random Glucose 287 H Lactic Acid Calcium 9.7 Magnesium Total Bilirubin AST ALT Alkaline Phosphatase Troponin I High Sens Total Protein Albumin Lipase COVID-19 ([facility]) COVID-19 Clin Com Influenza Type A (SARAH) Influenza Type B (SARAH) Influenza A & B Note Imaging Radiologist's Impressions: Impressions Abdomen/Pelvis CT 05/28/22 13:51 IMPRESSION: 1. Status post ileostomy through the anterior abdominal wall. Postsurgical changes at the hepatic flexure of the colon. No abscess or evidence of perforation. 2. Stable 1.5 cm low attenuating lesion in the right lobe of liver unchanged since CAT scan 04/09/2022. Fleischner guidelines were followed. Assessment and Plan Time Spent With Patient Time: Total time managing care of this patient today ____ minutes.
--- NOTE | 2022-05-28 18:03 | MHC.EDTECH ---
1800 rounding and vitals sign taken ,repeated labs drawn and send to lab .
[2022-05-28 18:16] LABS: Appearance Urine Cloudy; Color Urine Dark Yellow; Glucose Urine UA Negative (Negative); Leukocyte Esterase Urine Trace (Negative); Nitrite Urine Negative (Negative); UMIC TRIGGER UACC YES; Urine Blood Moderate (2+) (Negative); Urine Ketones Negative (Negative); Urine Protein 100 (2+) mg/dL (Neg-Trace)
[2022-05-28 18:16] LABS: VBG Base Excess -13.9 mmol/L; VBG HCO3 11 mmol/L (22-26); VBG pCO2 23 mmHg; VBG pH 7.27 (7.32-7.43); VBG pO2 199 mmHg
[2022-05-28] MEDS: Sodium Zirconium Cyclosilicate 10 GM POWD.PACK PO (18:18)
[2022-05-28 18:25] LABS: Bacteria Urine None Seen (None Seen); Hyaline Casts Urine >20 /LPF (0-2); RBC Urine >20 /HPF (0-2); Squamous Epithelial Cell Urine 0-2 /HPF (0-2); UACC Culture Trigger YES
[2022-05-28 18:35] LABS: Anion Gap 19 (12-20); Calcium 8.6 mg/dL (8.4-10.2); Carbon Dioxide 11 mmol/L (22-29); Chloride 110 mmol/L (96-108); Creatinine Clr Calc Pharmacy 6.7; Estimated Glomerular Filt Rate 6; Glucose Random 164 mg/dL (60-115); Potassium 5.9 mmol/L (3.3-5.1); Sodium 134 mmol/L (135-145)
[2022-05-28 18:41] LABS: Blood Urea Nitrogen 144 mg/dL (9-16)
[2022-05-28 19:04] LABS: Venous Blood Gas Refer to POC result
--- NOTE | 2022-05-28 20:35 | PHA.MEDREC ---
Pharmacy Consult ? Medication Reconciliation Pharmacy has completed the medication reconciliation. Spoke to patients on the phone
--- NOTE | 2022-05-28 22:06 | MHC.EDTECH ---
pt 2200 rounding and vitals sign taken ,repeated labs drawn and send to lab .
[2022-05-28 22:46] LABS: Anion Gap 20 (12-20); Calcium 8.7 mg/dL (8.4-10.2); Carbon Dioxide 15 mmol/L (22-29); Chloride 106 mmol/L (96-108); Creatinine Clr Calc Pharmacy 6.9; Estimated Glomerular Filt Rate 6; Glucose Random 186 mg/dL (60-115); Potassium 5.8 mmol/L (3.3-5.1); Sodium 135 mmol/L (135-145)
[2022-05-28 22:58] LABS: Blood Urea Nitrogen 140 mg/dL (9-16)
[2022-05-29] VITALS (8 sets, daily range): BP systolic 93–151; BP diastolic 41–57; PULSE 70–97; RESP 14–18; TEMP 36.4–37.1; O2SAT 97–99; BMI 25.1
[2022-05-29] MEDS: Sodium Bicarbonate 8.4% 150 MEQ in Dextrose 5 % 850 ML 100 MEQ IV ×2 (00:10→11:21)
--- NOTE | 2022-05-29 00:19 | MHC.EDTECH ---
0000 rounding and vitals sign taken ,pt sleeping ,pt at bedside ,call uribe within reach .
[2022-05-29] MEDS: Lactated Ringers 1,000 ML 150 ML IVCONT (01:44)
--- NOTE | 2022-05-29 05:07 | MHC.EDTECH ---
pt repeated lab drawn and send to lab ,vitals sign taken ,pt at bedside .
[2022-05-29 05:27] LABS: Anion Gap 20 (12-20)
[2022-05-29 05:34] LABS: Calcium 8.4 mg/dL (8.4-10.2); Carbon Dioxide 15 mmol/L (22-29); Chloride 107 mmol/L (96-108); Creatinine Clr Calc Pharmacy 7.6; Estimated Glomerular Filt Rate 7; Glucose Random 176 mg/dL (60-115); Potassium 5.2 mmol/L (3.3-5.1); Sodium 137 mmol/L (135-145)
[2022-05-29 05:44] LABS: Blood Urea Nitrogen 139 mg/dL (9-16)
--- NOTE | 2022-05-29 08:50 | W.ED.CONSULT ---
Consult Details Consult Details: 71-year-old male signed out to Dr. Brady last night after there were no beds available in the ER she was made to board the patient in the ER overnight. I will call this morning from Dr. Sandy off from the ICU who had seen the patient yesterday patient had been evaluated by hospitalist service as well there is a note in from both. Patient is cleared per Dr. Sandy up to go to the floor at this time. I did consult the hospitalist
--- NOTE | 2022-05-29 09:12 | PM.IMHP ---
History of Present Illness Date of Service: 05/29/22 Chief Complaint: Hyperkalemia 71-year-old male with history of sfg-emsumfg-xpfghdiop type 2 diabetes, hypertension, hypercholesterolemia, vitamin-D deficiency who was diagnosed with colon cancer s/p ex lap, resection of transverse colon stricture, loop ileostomyand on 04/29/[address] Fam and is awaiting chemotherapy. He has no underlying kidney disease. On April 30 his creatinine was 1. He presented to the emergency room yesterday with nausea vomiting and feeling weak and was advised to come to the emergency room by [facility]. He was noted to have a creatinine of 10 and potassium of 7 with marked metabolic acidosis. Initial thought was that patient was to be admitted to ICU for possible emergent dialysis however there were no ICU bed so the patient was managed while in the emergency room with bicarb in an and the potassium lowering agent. At this point his potassium has come down to 5.2 and creatinine has reduced to 7.6 to and no emergent dialysis is advise by Nephrology. Patient overall said he feels better it is also of note that his blood pressure was markedly low when the checked at home by the VNA yesterday but is much better and in fact within normal limits at this time. Review of Systems Review of Systems: Gen: no fever Resp: no sob, no cough CV: no chest, no AGUILA, no leg edema GI: No n/v, no abd pain Neuro: No confusion Yes all other systems are reviewed and are negative [facility] Medical History Benign essential hypertension Colon cancer Diabetes mellitus Overweight (BMI 25.0-29.9) Pure hypercholesterolemia Syncope Vitamin D deficiency Family History Father Diabetes Hypertension Mother Diabetes Hypertension Mother Colon cancer Unknown Colon cancer Daughter Breast cancer Surgical History History of colonoscopy Social History Household Members: Spouse Housing: House Do you presently have visiting nurse or other home services: No Alcohol intake: unknown Patient Tobacco Use Status: Never used Tobacco Smoked in Last 30 Days: No e-Cigarette/Vaping Use: Never Used Second Hand Smoke Exposure: No Use of substances other than those prescribed or required for medical reasons: Unknown Advance Directives: Yes Advance Directives on File: Yes Advance Directives Date on File: 12/24/21 Nutrition Risks: No Nutritional Risk service: No Current occupational status: retired Cognitive needs: No Hearing needs: No Vision needs: Yes Meds Allergies Allergy/AdvReac Type Severity Reaction Status Date / Time No Known Allergies Allergy Verified 04/25/22 17:01 [No Known Allergies*] Active Medications: Current Medications Sodium Bicarbonate 150 meq/ (Dextrose) 1,000 mls @ 100 mls/hr IV .Q10H [facility] Last Admin: 05/29/22 00:10 Dose: 100 mls/hr Pharmacy Consult (Consult Rx Perform Med Rec) 1 each MISCELLANE ONCE PRN PRN Reason: Consult order Sodium Bicarbonate (Sodium Bicarbonate 650 Mg Tablet) 1,300 mg PO BID [facility] Home Medications Medication Instructions Recorded Confirmed Last Taken Type cholecalciferol (vitamin D3) 25 25 mcg PO DAILY 03/10/20 05/28/22 04/26/22 History mcg (1,000 unit) capsule multivitamin 1 tab PO DAILY 04/26/22 05/28/22 04/25/22 History cetirizine 10 mg tablet 10 mg PO DAILY 05/28/22 05/28/22 Unknown History pantoprazole 40 mg tablet,delayed 40 mg PO DAILY 05/28/22 05/28/22 Unknown History release Physical Exam Vital Signs and Narrative: Vital Signs: Last Vital Signs Temp 97.9 F 05/29/22 06:00 Pulse 85 05/29/22 08:10 Resp 14 05/29/22 08:10 BP 118/54 L 05/29/22 08:10 Pulse Ox 98 05/29/22 08:10 O2 Del Method 05/29/22 08:10 BMI result Body Mass Index 23.6 Const: Other: Constitutional: Alert, in no distress, Mental Status: Oriented to person, place and time. Eyes: Pupils are equal, round and reactive to light. Ear, Nose and Throat: Oropharynx clear, mucous membranes moist. Ears and nose without deformities. Trachea midline. Respiratory: Clear to auscultation. No wheezing, rales or rhonchi. Cardiovascular: S1 S2 regular. No murmurs, rubs or gallops. Gastrointestinal: Abdomen soft, non-tender, non-distended. Normal bowel sounds.?colostomy bag Neurologic: Cranial nerves II-XII grossly intact. No focal neurological deficits. Moves all extremities spontaneously.? Skin: No rashes or lesions.? Musculoskeletal: No cyanosis or clubbing. Psychiatric: Normal mood and affect? Results Labs 05/28/22 10:31 05/29/22 05:03 Labs: Laboratory Results - last 24 hr 05/28/22 05/28/22 05/28/22 10:31 10:31 10:31 MCV 79.4 L MCH 26.0 L MCHC 32.7 RDW 14.2 Plt Count 186 D MPV 10.5 Immature Gran % (Auto) 0.6 H Neut % (Auto) 84.6 H Lymph % (Auto) 8.0 L Cuming % (Auto) 6.0 Eos % (Auto) 0.3 Baso % (Auto) 0.5 Lymph # (Auto) 1.0 L Cuming # (Auto) 0.7 Eos # (Auto) 0.0 Baso # (Auto) 0.1 Abs Immat Gran (auto) 0.07 H Absolute Neuts (auto) 10.2 H Absolute Nucleated RBC 0.000 Nucleated RBC % (auto) 0.0 VBG pH VBG pCO2 VBG pO2 VBG HCO3 VBG O2 Saturation VBG Base Excess Anion Gap 27 H Estim Creat Clear Calc 5.8 Estimated GFR 5 POC Glucose Random Glucose 191 H Lactic Acid Calcium 9.6 D Magnesium 1.8 Total Bilirubin 0.4 AST 19 ALT 67 H Alkaline Phosphatase 109 Troponin I High Sens 17.0 Total Protein 6.6 Albumin 3.9 Lipase 219 H Urine Color Urine Appearance Urine pH Ur Specific [place] Urine Protein Urine Glucose (UA) Urine Ketones Urine Blood Urine Nitrite Ur Leukocyte Esterase Urine RBC Urine WBC Ur Squamous Epith Cells Urine Bacteria Hyaline Casts COVID-19 (BRITTNEE) COVID-19 Clin Com Influenza Type A (SARAH) Influenza Type B (SARAH) Influenza A & B Note 05/28/22 05/28/22 05/28/22 10:31 10:34 10:34 MCV MCH MCHC RDW Plt Count MPV Immature Gran % (Auto) Neut % (Auto) Lymph % (Auto) Cuming % (Auto) Eos % (Auto) Baso % (Auto) Lymph # (Auto) Cuming # (Auto) Eos # (Auto) Baso # (Auto) Abs Immat Gran (auto) Absolute Neuts (auto) Absolute Nucleated RBC Nucleated RBC % (auto) VBG pH VBG pCO2 VBG pO2 VBG HCO3 VBG O2 Saturation VBG Base Excess Anion Gap Estim Creat Clear Calc Estimated GFR POC Glucose Random Glucose Lactic Acid 0.9 Calcium Magnesium Total Bilirubin AST ALT Alkaline Phosphatase Troponin I High Sens Total Protein Albumin Lipase Urine Color Urine Appearance Urine pH Ur Specific [place] Urine Protein Urine Glucose (UA) Urine Ketones Urine Blood Urine Nitrite Ur Leukocyte Esterase Urine RBC Urine WBC Ur Squamous Epith Cells Urine Bacteria Hyaline Casts COVID-19 (BRITTNEE) Negative COVID-19 Clin Com See Note Influenza Type A (SARAH) Negative Influenza Type B (SARAH) Negative Influenza A & B Note See Note 05/28/22 05/28/22 05/28/22 12:49 13:02 13:21 MCV MCH MCHC RDW Plt Count MPV Immature Gran % (Auto) Neut % (Auto) Lymph % (Auto) Cuming % (Auto) Eos % (Auto) Baso % (Auto) Lymph # (Auto) Cuming # (Auto) Eos # (Auto) Baso # (Auto) Abs Immat Gran (auto) Absolute Neuts (auto) Absolute Nucleated RBC Nucleated RBC % (auto) VBG pH 7.21 L VBG pCO2 24 VBG pO2 155 VBG HCO3 9 L VBG O2 Saturation 99.0 VBG Base Excess -16.2 Anion Gap 21 H Estim Creat Clear Calc 6.2 Estimated GFR 6 POC Glucose 251 H Random Glucose 287 H Lactic Acid Calcium 9.7 Magnesium Total Bilirubin AST ALT Alkaline Phosphatase Troponin I High Sens Total Protein Albumin Lipase Urine Color Urine Appearance Urine pH Ur Specific [place] Urine Protein Urine Glucose (UA) Urine Ketones Urine Blood Urine Nitrite Ur Leukocyte Esterase Urine RBC Urine WBC Ur Squamous Epith Cells Urine Bacteria Hyaline Casts COVID-19 (BRTITNEE) COVID-19 Clin Com Influenza Type A (SARAH) Influenza Type B (SARAH) Influenza A & B Note 05/28/22 05/28/22 05/28/22 18:02 18:02 18:08 MCV MCH MCHC RDW Plt Count MPV Immature Gran % (Auto) Neut % (Auto) Lymph % (Auto) Cuming % (Auto) Eos % (Auto) Baso % (Auto) Lymph # (Auto) Cuming # (Auto) Eos # (Auto) Baso # (Auto) Abs Immat Gran (auto) Absolute Neuts (auto) Absolute Nucleated RBC Nucleated RBC % (auto) VBG pH 7.27 L VBG pCO2 23 VBG pO2 199 VBG HCO3 11 L VBG O2 Saturation 99.0 VBG Base Excess -13.9 Anion Gap 19 Estim Creat Clear Calc 6.7 Estimated GFR 6 POC Glucose Random Glucose 164 H Lactic Acid Calcium 8.6 D Magnesium Total Bilirubin AST ALT Alkaline Phosphatase Troponin I High Sens Total Protein Albumin Lipase Urine Color Dark Yellow Urine Appearance Cloudy Urine pH 5.0 Ur Specific [place] 1.020 Urine Protein 100 (2+) H Urine Glucose (UA) Negative Urine Ketones Negative Urine Blood Moderate (2+) H Urine Nitrite Negative Ur Leukocyte Esterase Trace H Urine RBC >20 H Urine WBC 11-20 H Ur Squamous Epith Cells 0-2 Urine Bacteria None Seen Hyaline Casts >20 COVID-19 (BRITTNEE) COVID-19 Clin Com Influenza Type A (SARAH) Influenza Type B (SARAH) Influenza A & B Note 05/28/22 05/29/22 22:06 05:03 MCV MCH MCHC RDW Plt Count MPV Immature Gran % (Auto) Neut % (Auto) Lymph % (Auto) Cuming % (Auto) Eos % (Auto) Baso % (Auto) Lymph # (Auto) Cuming # (Auto) Eos # (Auto) Baso # (Auto) Abs Immat Gran (auto) Absolute Neuts (auto) Absolute Nucleated RBC Nucleated RBC % (auto) VBG pH VBG pCO2 VBG pO2 VBG HCO3 VBG O2 Saturation VBG Base Excess Anion Gap 20 20 Estim Creat Clear Calc 6.9 7.6 Estimated GFR 6 7 POC Glucose Random Glucose 186 H 176 H Lactic Acid Calcium 8.7 8.4 Magnesium Total Bilirubin AST ALT Alkaline Phosphatase Troponin I High Sens Total Protein Albumin Lipase Urine Color Urine Appearance Urine pH Ur Specific [place] Urine Protein Urine Glucose (UA) Urine Ketones Urine Blood Urine Nitrite Ur Leukocyte Esterase Urine RBC Urine WBC Ur Squamous Epith Cells Urine Bacteria Hyaline Casts COVID-19 ([facility]ITTN[facility]) COVID-19 Clin Com Influenza Type A (SARAH) Influenza Type B (SARAH) Influenza A & B Note Imaging Radiologist's Impressions: Impressions Abdomen/Pelvis CT 05/28/22 13:51 IMPRESSION: 1. Status post ileostomy through the anterior abdominal wall. Postsurgical changes at the hepatic flexure of the colon. No abscess or evidence of perforation. 2. Stable 1.5 cm low attenuating lesion in the right lobe of liver unchanged since CAT scan 04/09/2022. Fleischner guidelines were followed. Assessment and Plan (1) Acute kidney injury: Status: Acute (2) Acute hyperkalemia: Status: Acute Plan 71-year-old male with history of gaz-olcepnt-weitqyhmj type 2 diabetes, hypertension, hypercholesterolemia, vitamin-D deficiency who was diagnosed with colon cancer s/p ex lap, resection of transverse colon stricture, loop ileostomyand on 04/29/[address] Fam and is awaiting chemotherapy here here with MARILYNN, hyperkalemia and Metabolic acidosid 1/MARILYNN suspect possible pre renal and ATN from renal hypOperfusion hypotension. Creatine is already getting better and full recovery expected. Nephrology will be following. Continue IVF with Bicab. No indication for HD at this 2/Hyperkalemia--d/t #1, improved with k lowering agents, continue to moniotor and if needed Lokelnd 3/ acute Metabolic aciodis d/t above..Bicab as directed by Nephrology 4/Diabetes--SSI, 5/HTN--in light hypotension hold meds 6/DVT prophylaxis--Lovenox Full code, plan discussed with spouse Admission to last at least 2 midnight for management of acute hyperkalemia in the setting of acute renal failure with a possibility of needing dialysis. Time Spent With Patient Time: Total time managing care of this patient today ____ minutes. Quality Stroke Does the patient have a stroke diagnosis?: No VTE Prior VTE?: No VTE Risk Level:: Medical - moderate - high VTE Device Contraindication: Treatment Not Indicated VTE Drug Contraindication: N/A - Med Ordered
--- NOTE | 2022-05-29 10:01 | MHC.CM.PN ---
Lives with on second floor, owns walker. drives him where he needs to go. No previous services. Prior to this past month, patient has been mostly functionally independent at home until recent illness and slow decline. Plan is home with via . CM to follow.
[2022-05-29] MEDS: Sodium Bicarbonate 650 MG TABLET 1300 MG PO ×2 (10:24→21:47)
[2022-05-29] MEDS: Sodium Zirconium Cyclosilicate 10 GM POWD.PACK PO ×2 (10:25→15:31)
--- NOTE | 2022-05-29 11:14 | PM.CNNEP ---
History of Present Illness Reason for Consult Consult date: 05/29/22 Reason for consult: MARILYNN, Hyperkalemia Chief Complaint Chief complaint: Hyperkalemia History of Present Illness Narrative: Mr. Evgeny Ag is a 71-year-old gentleman with history of vag-aarcjjv-gduhtxiqx type 2 diabetes, hypertension, hypercholesterolemia, vitamin-D deficiency who was diagnosed with colon cancer s/p?ex lap & resection of transverse colon stricture w/ loop ileostomy on 04/29/22. He is now awaiting CHEMO by port to be placed 06/01/22. He presented to the emergency room 05/28/22 with nausea vomiting and feeling weak. Creatinine of 10mg/dL and potassium of 7meq/L with profound metabolic acidosis. Collins was placed with 100cc UOP. CT abd/pelvis non-contrast ruled out obstruction. He was started on Bicarb isotonic gtt with improving GFR / Acidosis / Hyperkalemia since. On my exam, the patient has been profoundly depressed since hearing of his colon cancer diagnosis. tells me he has stopped eating and has been less interactive. Review of Systems Review of Systems Gen: no fever Resp: no sob, no cough CV: no chest, no AGUILA, no leg edema GI: No n/v, no abd pain Neuro: No confusion Yes all other systems are reviewed and are negative Constitutional: Reports no additional constitutional complaints Cardiovascular: Reports no additional cardiovascular complaints Respiratory: Reports no additional respiratory complaints Gastrointestinal: Reports no additional gastrointestinal complaints Genitourinary: Reports no additional male genitourinary complaints Reports system reviewed and no additional complaints, except as documented PMFSH Past Medical History Medical History Benign essential hypertension Colon cancer Diabetes mellitus Overweight (BMI 25.0-29.9) Pure hypercholesterolemia Syncope Vitamin D deficiency Family History Family History Father Diabetes Hypertension Mother Diabetes Hypertension Mother Colon cancer Unknown Colon cancer Daughter Breast cancer Surgical History Surgical History History of colonoscopy Social History Social History Household Members: Spouse Housing: House Do you presently have visiting nurse or other home services: No Alcohol intake: unknown Patient Tobacco Use Status: Never used Tobacco Smoked in Last 30 Days: No e-Cigarette/Vaping Use: Never Used Second Hand Smoke Exposure: No Use of substances other than those prescribed or required for medical reasons: Unknown Advance Directives: Yes Advance Directives on File: Yes Advance Directives Date on File: 12/24/21 service: No Current occupational status: retired Cognitive needs: No Hearing needs: No Vision needs: Yes Meds Allergies Allergy/AdvReac Type Severity Reaction Status Date / Time No Known Allergies Allergy Verified 04/25/22 17:01 [No Known Allergies*] Active Medications: Current Medications Acetaminophen (Acetaminophen 325 Mg Tablet) 650 mg PO Q6H PRN PRN Reason: Pain, Mild (Pain Scale 1-3) Atorvastatin Calcium (Atorvastatin Calcium 10 Mg Tablet) 10 mg PO BEDTIME [facility] Sodium Bicarbonate 150 meq/ (Dextrose) 1,000 mls @ 100 mls/hr IV .Q10H [facility] Last Admin: 05/29/22 00:10 Dose: 100 mls/hr Insulin Human Lispro (Insulin Lispro 100 Unit/Ml 3 Ml Vial) 0 unit SUBCUT QIDACHS [facility]; Protocol Loratadine (Loratadine 10 Mg Tablet) 10 mg PO DAILY [facility] Multivitamins/Vitamin C (Multivitamin Tablet) 1 tab PO DAILY [facility] Omeprazole (Omeprazole 20 Mg Capsule.Dr) 20 mg PO DAILY@0630 [facility] Ondansetron HCl (Ondansetron Hcl 4 Mg/2 Ml Vial) 4 mg IVPUSH Q8H PRN PRN Reason: Nausea and Vomiting Pharmacy Consult (Consult Rx Perform Med Rec) 1 each MISCELLANE ONCE PRN PRN Reason: Consult order Sodium Bicarbonate (Sodium Bicarbonate 650 Mg Tablet) 1,300 mg PO BID [facility] Last Admin: 05/29/22 10:24 Dose: 1,300 mg Sodium Chloride (0.9 % Sodium Chloride Flush 3 Ml Syringe) 3 ml IVFLUSH QSHIFT [facility] Vitamin D (Cholecalciferol (Vitamin D3) 25 Mcg Tablet) 25 mcg PO DAILY [facility] Home Medications Medication Instructions Recorded Confirmed Last Taken Type cholecalciferol (vitamin D3) 25 25 mcg PO DAILY 03/10/20 05/28/22 04/26/22 History mcg (1,000 unit) capsule multivitamin 1 tab PO DAILY 04/26/22 05/28/22 04/25/22 History cetirizine 10 mg tablet 10 mg PO DAILY 05/28/22 05/28/22 Unknown History pantoprazole 40 mg tablet,delayed 40 mg PO DAILY 05/28/22 05/28/22 Unknown History release Physical Exam Vital Signs: Last Vital Signs Temp 97.9 F 05/29/22 06:00 Pulse 85 05/29/22 08:10 Resp 14 05/29/22 08:10 BP 118/54 L 05/29/22 08:10 Pulse Ox 98 05/29/22 08:10 O2 Del Method 05/29/22 08:10 BMI result Body Mass Index 23.6 Const Other: Constitutional: Alert, in no distress, Mental Status: Oriented to person, place and time. Eyes: Pupils are equal, round and reactive to light. Ear, Nose and Throat: Oropharynx clear, mucous membranes moist. Ears and nose without deformities. Trachea midline. Respiratory: Clear to auscultation. No wheezing, rales or rhonchi. Cardiovascular: S1 S2 regular. No murmurs, rubs or gallops. Gastrointestinal: Abdomen soft, non-tender, non-distended. Normal bowel sounds.?colostomy bag Neurologic: Cranial nerves II-XII grossly intact. No focal neurological deficits. Moves all extremities spontaneously.? Skin: No rashes or lesions.? Musculoskeletal: No cyanosis or clubbing. Psychiatric: Normal mood and affect? Results Lab Results 05/28/22 10:31 05/29/22 05:03 Lab results: Chemistry 05/28/22 05/28/22 05/28/22 10:31 12:49 18:02 Sodium 130 L 130 L 134 L Potassium 6.8 H* D 7.0 H* 5.9 H Carbon Dioxide 9 L* D 10 L* 11 L BUN 169 H > 125 H 144 H Creatinine 10.04 H* 9.33 H* 8.71 H* Calcium 9.6 D 9.7 8.6 D 05/28/22 05/29/22 22:06 05:03 Sodium 135 137 Potassium 5.8 H 5.2 H Carbon Dioxide 15 L 15 L BUN 140 H 139 H Creatinine 8.45 H* 7.62 H* Calcium 8.7 8.4 Hematology 05/28/22 10:31 WBC 12.1 H Hgb 12.0 L Plt Count 186 D Urinalysis 05/28/22 18:02 Urine Color Dark Yellow Urine Appearance Cloudy Urine pH 5.0 Ur Specific [place] 1.020 Urine Protein 100 (2+) H Urine Glucose (UA) Negative Urine Ketones Negative Urine Blood Moderate (2+) H Urine Nitrite Negative Ur Leukocyte Esterase Trace H Urine RBC >20 H Urine WBC 11-20 H Ur Squamous Epith Cells 0-2 Hyaline Casts >20 Assessment and Plan (1) Acute kidney injury: Status: Acute (2) Acute hyperkalemia: Status: Acute (3) Colon cancer: Status: Acute (4) Benign essential hypertension: Status: Acute (5) Metabolic acidosis: Status: Acute Plan Mr. Evgeny Ag is a 71-year-old gentleman with history of dig-yahnxan-lstuwffti type 2 diabetes, hypertension, hypercholesterolemia, vitamin-D deficiency who was diagnosed with colon cancer s/p?ex lap & resection of transverse colon stricture w/ loop ileostomy on 04/29/22. He is now awaiting CHEMO by port to be placed 06/01/22. He presented to the emergency room 05/28/22 with nausea vomiting and feeling weak. Creatinine of 10mg/dL and potassium of 7meq/L with profound metabolic acidosis. 1. MARILYNN 2. Metabolic acidosis of renal failure 3. Hyperkalemia of renal failure Hemodynamic stress with renal hypo -perfusion and pre-renal azotemia which has undoubtedly progressed to ischemic tubular injury. Some Cr / GFR improvement with IVF support. He is has not normalized renal function because there are some nephron units with necrosis. 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 - Watch serum calcium which will fall as we reverse acidosis. Time Spent With Patient Time: Total time managing care of this patient today ____ minutes. Procedures Date of Service Date of Service: 05/29/22
[2022-05-29 14:31] LABS: Glucose, Whole Blood 184 mg/dL (60-115)
[2022-05-29 21:43] LABS: Glucose, Whole Blood 172 mg/dL (60-115)
[2022-05-29] MEDS: Atorvastatin Calcium 10 MG TABLET PO (21:43)
[2022-05-29] MEDS: Insulin Lispro 100 UNIT/ML 3 ML VIAL SUBCUT (21:43)
[2022-05-30] VITALS (7 sets, daily range): BP systolic 111–158; BP diastolic 55–69; PULSE 68–86; RESP 14–18; TEMP 35.7–37.6; O2SAT 95–98
[2022-05-30] MEDS: Sodium Bicarbonate 8.4% 150 MEQ in Dextrose 5 % 850 ML 100 MEQ IV (00:33)
[2022-05-30] MEDS: Omeprazole 20 MG CAPSULE.DR PO (05:24)
--- NOTE | 2022-05-30 09:19 | P.PNIM_ITS ---
Subjective Subjective Date of Service: 05/30/22 Interval History: f/u on MARILYNN, hyperkalemia interval history: no complaint, no n/v, K level is pending Physical Exam Vital Signs: Vital Signs: Last Vital Signs Temp 98.2 F 05/30/22 07:49 Pulse 78 05/30/22 07:49 Resp 18 05/30/22 07:49 BP 111/55 L 05/30/22 07:49 Pulse Ox 97 05/30/22 07:49 O2 Del Method 05/30/22 07:49 BMI result Body Mass Index 25.1 Const: Other: General: AO X 3, no acute distress Resp: CTA bilateral CVS: S1,S2,RRR GI: +BS, NT, no distention, colostomy in place Skin: No rash Neuro: motor grossly intact Psych: appropriate affect Objective Data Active Medications Acetaminophen (Acetaminophen 325 Mg Tablet) 650 mg PO Q6H PRN PRN Reason: Pain, Mild (Pain Scale 1-3) Atorvastatin Calcium (Atorvastatin Calcium 10 Mg Tablet) 10 mg PO BEDTIME [facility] Last Admin: 05/29/22 21:43 Dose: 10 mg Documented By: AYAH Sodium Bicarbonate 150 meq/ (Dextrose) 1,000 mls @ 100 mls/hr IV .Q10H [facility] Last Admin: 05/30/22 00:33 Dose: 100 mls/hr Documented By: AYAH Insulin Human Lispro (Insulin Lispro 100 Unit/Ml 3 Ml Vial) 0 unit SUBCUT QIDACHS [facility]; Protocol Last Admin: 05/29/22 21:43 Dose: 2 unit Documented By: AYAH Loratadine (Loratadine 10 Mg Tablet) 10 mg PO DAILY [facility] Multivitamins/Vitamin C (Multivitamin Tablet) 1 tab PO DAILY [facility] Omeprazole (Omeprazole 20 Mg Capsule.) 20 mg PO DAILY@0630 [facility] Last Admin: 05/30/22 05:24 Dose: 20 mg Documented By: AYAH Ondansetron HCl (Ondansetron Hcl 4 Mg/2 Ml Vial) 4 mg IVPUSH Q8H PRN PRN Reason: Nausea and Vomiting Pharmacy Consult (Consult Rx Perform Med Rec) 1 each MISCELLANE ONCE PRN PRN Reason: Consult order Sodium Bicarbonate (Sodium Bicarbonate 650 Mg Tablet) 1,300 mg PO BID [facility] Last Admin: 05/29/22 21:47 Dose: 1,300 mg Documented By: AYAH Sodium Chloride (0.9 % Sodium Chloride Flush 3 Ml Syringe) 3 ml IVFLUSH QSHIFT [facility] Last Admin: 05/30/22 00:35 Dose: Not Given Documented By: AYAH Non-Admin Reason: IV Running Vitamin D (Cholecalciferol (Vitamin D3) 25 Mcg Tablet) 25 mcg PO DAILY [facility] Labs 05/28/22 10:31 05/29/22 05:03 Labs: Laboratory Results - last 24 hr 05/29/22 05/29/22 14:26 21:39 POC Glucose 184 H 172 H Microbiology Microbiology Results: Microbiology 05/28/22 10:34 Blood Culture - Preliminary Blood - Venous No growth after 24 hours. 05/28/22 10:31 Blood Culture - Preliminary Blood - Venous No growth after 24 hours. 05/28/22 19:03 Urine Culture - Preliminary Urine clean catch - Urine hood top No growth to date. Assessment and Plan (1) Acute kidney injury: Status: Acute (2) Metabolic acidosis: Status: Acute (3) Colon cancer: Status: Acute (4) Acute hyperkalemia: Status: Acute Plan 71-year-old male with history of sja-bvhroze-qezwukolf type 2 diabetes, hypertension, hypercholesterolemia, vitamin-D deficiency who was diagnosed with colon cancer s/p ex lap, resection of transverse colon stricture, loop ileostomyand on 04/29/[address] Fam and is awaiting chemotherapy here here with MARILYNN, hyperkalemia and Metabolic acidosid 1/MARILYNN suspect possible pre renal and ATN from renal hypOperfusion hypotension. Creatine is already trending down 10 --> 4 today and full recovery expected. Nephrology will be following. Continue IVF with Bicab. No indication for HD at this time 2/Hyperkalemia--d/t #1, resolved after LokelmaAutumn 4.2 3/ acute Metabolic aciodis d/t above..Bicab as directed by Nephrology 4/Diabetes--SSI, 5/HTN--in light hypotension hold meds' 6/ Colon cancer--outpatient f/u with Dr. Terrell 6/DVT prophylaxis--Lovenox Full code, plan discussed with spouse Admission to last at least 2 midnight for management of acute hyperkalemia in the setting of acute renal failure with a possibility of needing dialysis. Time Spent With Patient Time: Total time managing care of this patient today ____ minutes. Quality Stroke Does the patient have a stroke diagnosis?: No VTE Prior VTE?: No VTE Risk Level:: Medical - moderate - high VTE Device Contraindication: Treatment Not Indicated VTE Drug Contraindication: N/A - Med Ordered
[2022-05-30 09:20] LABS: Glucose, Whole Blood 258 mg/dL (60-115)
[2022-05-30] MEDS: Cholecalciferol (Vitamin D3) 25 MCG TABLET PO (09:25)
[2022-05-30] MEDS: Multivitamin TABLET 1 TAB PO (09:25)
[2022-05-30] MEDS: Sodium Bicarbonate 650 MG TABLET 1300 MG PO (09:25)
[2022-05-30] MEDS: Insulin Lispro 100 UNIT/ML 3 ML VIAL SUBCUT ×2 (09:25→20:48)
[2022-05-30] MEDS: Loratadine 10 MG TABLET PO (09:25)
[2022-05-30 09:43] LABS: Anion Gap 17 (12-20); Blood Urea Nitrogen 108 mg/dL (9-16); Calcium 8.3 mg/dL (8.4-10.2); Carbon Dioxide 27 mmol/L (22-29); Chloride 100 mmol/L (96-108); Estimated Glomerular Filt Rate 13; Glucose Random 173 mg/dL (60-115); Potassium 4.2 mmol/L (3.3-5.1); Sodium 140 mmol/L (135-145)
--- NOTE | 2022-05-30 10:26 | PM.PNNEP ---
Subjective Subjective Date of Service: 05/30/22 Interval history: Cr falling like a stone Hyperkalemia and Acidosis resolved Physical Exam Vital Signs: Vital Signs: Last Vital Signs Temp 98.2 F 05/30/22 07:49 Pulse 78 05/30/22 07:49 Resp 18 05/30/22 07:49 BP 111/55 L 05/30/22 07:49 Pulse Ox 97 05/30/22 07:49 O2 Del Method 05/30/22 07:49 BMI result Body Mass Index 25.1 Const: Other: Constitutional: Alert, in no distress, Mental Status: Oriented to person, place and time. Eyes: Pupils are equal, round and reactive to light. Ear, Nose and Throat: Oropharynx clear, mucous membranes moist. Ears and nose without deformities. Trachea midline. Respiratory: Clear to auscultation. No wheezing, rales or rhonchi. Cardiovascular: S1 S2 regular. No murmurs, rubs or gallops. Gastrointestinal: Abdomen soft, non-tender, non-distended. Normal bowel sounds.?colostomy bag Neurologic: Cranial nerves II-XII grossly intact. No focal neurological deficits. Moves all extremities spontaneously.? Skin: No rashes or lesions.? Musculoskeletal: No cyanosis or clubbing. Psychiatric: Normal mood and affect? Objective Data Labs 05/28/22 10:31 05/30/22 07:54 Labs: Laboratory Results - last 24 hr 05/29/22 05/29/22 05/30/22 14:26 21:39 07:54 Sodium 140 Potassium 4.2 Chloride 100 Carbon Dioxide 27 Anion Gap 17 BUN 108 H Creatinine 4.48 H* Estim Creat Clear Calc 13.0 Estimated GFR 13 POC Glucose 184 H 172 H Random Glucose 173 H Calcium 8.3 L 05/30/22 09:16 Sodium Potassium Chloride Carbon Dioxide Anion Gap BUN Creatinine Estim Creat Clear Calc Estimated GFR POC Glucose 258 H Random Glucose Calcium Microbiology Microbiology Results: Microbiology 05/28/22 10:34 Blood - Venous Blood Culture - Preliminary Prelim: GPC Gram Stain only 05/28/22 10:31 Blood - Venous Blood Culture - Preliminary No growth after 24 hours. 05/28/22 19:03 Urine clean catch - Urine hood top Urine Culture - Preliminary No growth to date. Procedures Date of Service Date of Service: 05/30/22 Assessment & Plan Assessment and plan (1) Acute kidney injury: Status: Acute (2) Acute hyperkalemia: Status: Acute (3) Colon cancer: Status: Acute (4) Benign essential hypertension: Status: Acute (5) Metabolic acidosis: Status: Acute Plan Mr. Evgeny Ag is a 71-year-old gentleman with history of cqv-riquijd-qennlvnno type 2 diabetes, hypertension, hypercholesterolemia, vitamin-D deficiency who was diagnosed with colon cancer s/p?ex lap & resection of transverse colon stricture w/ loop ileostomy on 04/29/22. He is now awaiting CHEMO by port to be placed 06/01/22. He presented to the emergency room 05/28/22 with nausea vomiting and feeling weak. Creatinine of 10mg/dL and potassium of 7meq/L with profound metabolic acidosis. 1. MARILYNN 2. Metabolic acidosis of renal failure 3. Hyperkalemia of renal failure Hemodynamic stress with renal hypo -perfusion and pre-renal azotemia which has undoubtedly progressed to ischemic tubular injury. Some Cr / GFR improvement with IVF support. He is has not normalized renal function because there are some nephron units with necrosis. 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 Time Spent With Patient Time: Total time managing care of this patient today ____ minutes. Progress Note: Quality Stroke Does the patient have a stroke diagnosis?: No
[2022-05-30] MEDS: Lactated Ringers 1,000 ML 100 ML IVCONT ×2 (10:51→20:17)
[2022-05-30 13:21] LABS: Glucose, Whole Blood 185 mg/dL (60-115)
[2022-05-30 16:12] LABS: Glucose, Whole Blood 157 mg/dL (60-115)
[2022-05-30] MEDS: Atorvastatin Calcium 10 MG TABLET PO (20:48)
[2022-05-30 20:49] LABS: Glucose, Whole Blood 156 mg/dL (60-115)
[2022-05-31 04:00] VITALS: BP 131/62; PULSE 80; RESP 18; TEMP 37; O2SAT 96
[2022-05-31] MEDS: Lactated Ringers 1,000 ML 100 ML IVCONT ×2 (05:57→17:17)
[2022-05-31] MEDS: Omeprazole 20 MG CAPSULE.DR PO (05:57)
[2022-05-31 07:09] VITALS: BP 122/58; PULSE 82; RESP 20; TEMP 37.1; O2SAT 95
[2022-05-31 07:13] LABS: Glucose, Whole Blood 150 mg/dL (60-115)
[2022-05-31 09:25] LABS: Blood Urea Nitrogen 68 mg/dL (9-16); Calcium 8.2 mg/dL (8.4-10.2); Creatinine Clr Calc Pharmacy 19.9; Estimated Glomerular Filt Rate 22; Glucose Random 262 mg/dL (60-115)
[2022-05-31 09:51] LABS: Anion Gap 14 (12-20); Carbon Dioxide 28 mmol/L (22-29); Chloride 102 mmol/L (96-108); Potassium 5.1 mmol/L (3.3-5.1); Sodium 139 mmol/L (135-145)
[2022-05-31] MEDS: Cholecalciferol (Vitamin D3) 25 MCG TABLET PO (10:28)
[2022-05-31] MEDS: 0.9 % Sodium Chloride Flush 3 ML SYRINGE IVFLUSH (10:29)
[2022-05-31] MEDS: Loratadine 10 MG TABLET PO (10:29)
[2022-05-31] MEDS: Multivitamin TABLET 1 TAB PO (10:29)
--- NOTE | 2022-05-31 10:46 | P.PNIM_ITS ---
Subjective Subjective Date of Service: 05/31/22 Interval History: f/u on MARILYNN, hyperkalemia interval history:Creatine continues to trend down, has no new symptoms Review of Systems Gen: no fever Resp: no sob, no cough CV: no chest, no AGUILA, no leg edema GI: No n/v, no abd pain Neuro: No confusion Physical Exam Vital Signs: Vital Signs: Last Vital Signs Temp 98.7 F 05/31/22 07:09 Pulse 82 05/31/22 07:09 Resp 20 05/31/22 07:09 BP 122/58 L 05/31/22 07:09 Pulse Ox 95 05/31/22 07:09 O2 Del Method 05/31/22 07:09 BMI result Body Mass Index 25.1 Const: Other: General: AO X 3, no acute distress Resp: CTA bilateral CVS: S1,S2,RRR GI: +BS, NT, no distention, colostomy in place Skin: No rash Neuro: motor grossly intact Psych: appropriate affect Objective Data Active Medications Acetaminophen (Acetaminophen 325 Mg Tablet) 650 mg PO Q6H PRN PRN Reason: Pain, Mild (Pain Scale 1-3) Atorvastatin Calcium (Atorvastatin Calcium 10 Mg Tablet) 10 mg PO BEDTIME [facility] Last Admin: 05/30/22 20:48 Dose: 10 mg Documented By: LUZ Lactated Ringer's (Lr) 1,000 mls @ 100 mls/hr IVCONT .Q10H [facility] Last Admin: 05/31/22 05:57 Dose: 100 mls/hr Documented By: LUZ Insulin Human Lispro (Insulin Lispro 100 Unit/Ml 3 Ml Vial) 0 unit SUBCUT QIDACHS [facility]; Protocol Last Admin: 05/31/22 09:58 Dose: Not Given Documented By: SHAUN Non-Admin Reason: No Insulin Coverage Loratadine (Loratadine 10 Mg Tablet) 10 mg PO DAILY [facility] Last Admin: 05/31/22 10:29 Dose: 10 mg Documented By: SHAUN Multivitamins/Vitamin C (Multivitamin Tablet) 1 tab PO DAILY [facility] Last Admin: 05/31/22 10:29 Dose: 1 tab Documented By: SHAUN Omeprazole (Omeprazole 20 Mg Reyes.) 20 mg PO DAILY@0630 [facility] Last Admin: 05/31/22 05:57 Dose: 20 mg Documented By: LUZ Ondansetron HCl (Ondansetron Hcl 4 Mg/2 Ml Vial) 4 mg IVPUSH Q8H PRN PRN Reason: Nausea and Vomiting Pharmacy Consult (Consult Rx Perform Med Rec) 1 each MISCELLANE ONCE PRN PRN Reason: Consult order Sodium Chloride (0.9 % Sodium Chloride Flush 3 Ml Syringe) 3 ml IVFLUSH QSHIFT [facility] Last Admin: 05/31/22 10:29 Dose: 3 ml Documented By: SHAUN Vitamin D (Cholecalciferol (Vitamin D3) 25 Mcg Tablet) 25 mcg PO DAILY [facility] Last Admin: 05/31/22 10:28 Dose: 25 mcg Documented By: SHAUN Labs 05/28/22 10:31 05/31/22 08:42 Labs: Laboratory Results - last 24 hr 05/30/22 05/30/22 05/30/22 13:16 16:09 20:43 Anion Gap Estim Creat Clear Calc Estimated GFR POC Glucose 185 H 157 H 156 H Random Glucose Calcium 05/31/22 05/31/22 07:10 08:42 Anion Gap 14 Estim Creat Clear Calc 19.9 Estimated GFR 22 POC Glucose 150 H Random Glucose 262 H Calcium 8.2 L Microbiology Microbiology Results: Microbiology 05/28/22 10:34 Blood Culture - Final Blood - Venous Coag negative Staphylococcus 05/28/22 10:31 Blood Culture - Preliminary Blood - Venous No growth after 48 hours. 05/28/22 19:03 Urine Culture - Final Urine clean catch - Urine hood top No growth. Assessment and Plan (1) Acute kidney injury: Status: Acute (2) Metabolic acidosis: Status: Acute (3) Colon cancer: Status: Acute (4) Acute hyperkalemia: Status: Acute Plan 71-year-old male with history of [id number]-[id number] type 2 diabetes, hypertension, hypercholesterolemia, vitamin-D deficiency who was diagnosed with colon cancer s/p ex lap, resection of transverse colon stricture, loop ileostomyand on 04/29/[address] Fam and is awaiting chemotherapy here here with MARILYNN, hyperkalemia and Metabolic acidosid 1/MARILYNN suspect possible pre renal and ATN from renal hypOperfusion hypotension. Creatine is already trending down 10 --> 4 (2/)--> 2 2/6 today and full recovery expected. Nephrology will be following. 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 Terrell was scheduled for a Port tomorrow 6/DVT prophylaxis--Lovenox Full code, plan discussed with spouse Admission to last at least 2 midnight for management of acute hyperkalemia in the setting of acute renal failure with a possibility of needing dialysis. Time Spent With Patient Time: Total time managing care of this patient today ____ minutes. Quality Stroke Does the patient have a stroke diagnosis?: No VTE Prior VTE?: No VTE Risk Level:: Medical - moderate - high VTE Device Contraindication: Treatment Not Indicated VTE Drug Contraindication: N/A - Med Ordered
--- NOTE | 2022-05-31 10:53 | P.PNNP_ITS ---
Subjective Subjective Date of Service: 06/01/22 Interval history: Events noted Physical Exam Vital Signs: Vital Signs: Last Vital Signs Temp 98.7 F 05/31/22 07:09 Pulse 82 05/31/22 07:09 Resp 20 05/31/22 07:09 BP 122/58 L 05/31/22 07:09 Pulse Ox 95 05/31/22 07:09 O2 Del Method 05/31/22 07:09 BMI result Body Mass Index 25.1 Const: Other: Constitutional: Alert, in no distress, Mental Status: Oriented to person, place and time. Eyes: Pupils are equal, round and reactive to light. Ear, Nose and Throat: Oropharynx clear, mucous membranes moist. Ears and nose without deformities. Trachea midline. Respiratory: Clear to auscultation. No wheezing, rales or rhonchi. Cardiovascular: S1 S2 regular. No murmurs, rubs or gallops. Gastrointestinal: Abdomen soft, non-tender, non-distended. Normal bowel sounds.?colostomy bag Neurologic: Cranial nerves II-XII grossly intact. No focal neurological deficits. Moves all extremities spontaneously.? Skin: No rashes or lesions.? Musculoskeletal: No cyanosis or clubbing. Psychiatric: Normal mood and affect? Objective Data Labs 05/28/22 10:31 05/31/22 08:42 Labs: Laboratory Results - last 24 hr 05/30/22 05/30/22 05/30/22 13:16 16:09 20:43 Sodium Potassium Chloride Carbon Dioxide Anion Gap BUN Creatinine Estim Creat Clear Calc Estimated GFR POC Glucose 185 H 157 H 156 H Random Glucose Calcium 05/31/22 05/31/22 07:10 08:42 Sodium 139 Potassium 5.1 D Chloride 102 Carbon Dioxide 28 Anion Gap 14 BUN 68 H Creatinine 2.92 H Estim Creat Clear Calc 19.9 Estimated GFR 22 POC Glucose 150 H Random Glucose 262 H Calcium 8.2 L Microbiology Microbiology Results: Microbiology 05/28/22 10:34 Blood - Venous Blood Culture - Final Coag negative Staphylococcus 05/28/22 10:31 Blood - Venous Blood Culture - Preliminary No growth after 48 hours. 05/28/22 19:03 Urine clean catch - Urine hood top Urine Culture - Final No growth. Procedures Date of Service Date of Service: 05/31/22 Assessment & Plan Assessment and plan (1) Acute kidney injury: Status: Acute (2) Acute hyperkalemia: Status: Acute (3) Colon cancer: Status: Acute (4) Benign essential hypertension: Status: Acute (5) Metabolic acidosis: Status: Acute Plan 71-year-old gentleman with history of xqv-rlcgube-wpyorslwk type 2 diabetes, hypertension, hypercholesterolemia, vitamin-D deficiency who was diagnosed with colon cancer s/p?ex lap & resection of transverse colon stricture w/ loop ileostomy on 04/29/22. He is now awaiting CHEMO by port to be placed 06/01/22. He presented to the emergency room 05/28/22 with nausea vomiting and feeling weak. Creatinine of 10mg/dL and potassium of 7meq/L with profound metabolic acidosis. 1. MARILYNN 2. Metabolic acidosis of renal failure 3. Hyperkalemia of renal failure Hemodynamic stress with renal hypo -perfusion and pre-renal azotemia which has undoubtedly progressed to ischemic tubular injury. Some Cr / GFR improvement with IVF support. He is has not normalized renal function because there are some nephron units with necrosis. 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 Progress Note: Quality Stroke Does the patient have a stroke diagnosis?: No
[2022-05-31 11:07] VITALS: BP 134/63; PULSE 78; RESP 20; TEMP 37.1; O2SAT 95
[2022-05-31 11:19] LABS: Glucose, Whole Blood 301 mg/dL (60-115)
[2022-05-31] MEDS: Insulin Lispro 100 UNIT/ML 3 ML VIAL SUBCUT ×3 (12:31→21:21)
[2022-05-31 14:01] VITALS: BMI 25.1
--- NOTE | 2022-05-31 14:05 | MHC.CLN ---
PT WITH 13% SIGNIFICANT WT LOSS X 6 MONTHS S/P COLON CA WITH EX LAP SX AWAITING CHEMO PO INTAKE 75% X 1 MEALS DIET RX: 1800DM-RECOMMEND INCREASING 2000DM DIET IN ADDITION, RECOMMEND ADDING ENSURE MAX BID TO INCREASE KCALS/PROTEIN SUPP TO PROVIDE 300KCALS, 60G PROTEIN MONITOR PO INTAKE CLOSELY SEE FULL CLINICAL NUTRITION ASSESSMENT
[2022-05-31 14:58] VITALS: BP 154/71; PULSE 82; RESP 18; TEMP 37.1; O2SAT 97
--- NOTE | 2022-05-31 15:47 | MHC.CM.PN ---
per rounds pt may be dcd today plan [facility] home
[2022-05-31 15:55] LABS: Glucose, Whole Blood 151 mg/dL (60-115)
[2022-05-31 19:52] VITALS: BP 156/75; PULSE 79; RESP 18; TEMP 37.1; O2SAT 98
[2022-05-31 20:29] LABS: Glucose, Whole Blood 193 mg/dL (60-115)
[2022-05-31] MEDS: Atorvastatin Calcium 10 MG TABLET PO (21:20)
[2022-06-01] VITALS (7 sets, daily range): BP systolic 132–146; BP diastolic 66–74; PULSE 70–81; RESP 16–20; TEMP 36.9–37.1; O2SAT 96–98
[2022-06-01] MEDS: Omeprazole 20 MG CAPSULE.DR PO (06:23)
[2022-06-01] MEDS: 0.9 % Sodium Chloride Flush 3 ML SYRINGE IVFLUSH ×3 (06:25→15:49)
[2022-06-01 07:20] LABS: Glucose, Whole Blood 280 mg/dL (60-115)
[2022-06-01] MEDS: Insulin Lispro 100 UNIT/ML 3 ML VIAL SUBCUT ×2 (08:20→11:43)
[2022-06-01] MEDS: Cholecalciferol (Vitamin D3) 25 MCG TABLET PO (08:21)
[2022-06-01] MEDS: Multivitamin TABLET 1 TAB PO (08:21)
[2022-06-01] MEDS: Loratadine 10 MG TABLET PO (08:21)
[2022-06-01 08:36] LABS: Anion Gap 15 (12-20); Blood Urea Nitrogen 46 mg/dL (9-16); Calcium 8.2 mg/dL (8.4-10.2); Carbon Dioxide 23 mmol/L (22-29); Chloride 108 mmol/L (96-108); Creatinine Clr Calc Pharmacy 28.3; Estimated Glomerular Filt Rate 32; Glucose Random 149 mg/dL (60-115); Potassium 4.7 mmol/L (3.3-5.1); Sodium 141 mmol/L (135-145)
--- NOTE | 2022-06-01 09:57 | PC.NURSE ---
erlin mercer dc'd at 1630
--- NOTE | 2022-06-01 10:08 | PM.PNNEP ---
Subjective Subjective Date of Service: 06/02/22 Interval history: Events noted Physical Exam Vital Signs: Vital Signs: Last Vital Signs Temp 98.4 F 06/01/22 07:19 Pulse 72 06/01/22 07:19 Resp 20 06/01/22 07:19 BP 132/66 06/01/22 07:19 Pulse Ox 96 06/01/22 07:19 O2 Del Method 06/01/22 07:19 BMI result Body Mass Index 25.1 Const: Other: Constitutional: Alert, in no distress, Mental Status: Oriented to person, place and time. Eyes: Pupils are equal, round and reactive to light. Ear, Nose and Throat: Oropharynx clear, mucous membranes moist. Ears and nose without deformities. Trachea midline. Respiratory: Clear to auscultation. No wheezing, rales or rhonchi. Cardiovascular: S1 S2 regular. No murmurs, rubs or gallops. Gastrointestinal: Abdomen soft, non-tender, non-distended. Normal bowel sounds.?colostomy bag Neurologic: Cranial nerves II-XII grossly intact. No focal neurological deficits. Moves all extremities spontaneously.? Skin: No rashes or lesions.? Musculoskeletal: No cyanosis or clubbing. Psychiatric: Normal mood and affect? Objective Data Labs 05/28/22 10:31 06/01/22 08:11 Labs: Laboratory Results - last 24 hr 05/31/22 05/31/22 05/31/22 11:13 14:56 19:49 Sodium Potassium Chloride Carbon Dioxide Anion Gap BUN Creatinine Estim Creat Clear Calc Estimated GFR POC Glucose 301 H 151 H 193 H Random Glucose Calcium 06/01/22 06/01/22 07:16 08:11 Sodium 141 Potassium 4.7 Chloride 108 Carbon Dioxide 23 Anion Gap 15 BUN 46 H Creatinine 2.06 H Estim Creat Clear Calc 28.3 Estimated GFR 32 POC Glucose 280 H Random Glucose 149 H Calcium 8.2 L Microbiology Microbiology Results: Microbiology 05/28/22 10:34 Blood - Venous Blood Culture - Final Coag negative Staphylococcus 05/28/22 10:31 Blood - Venous Blood Culture - Preliminary No growth after 48 hours. 05/28/22 19:03 Urine clean catch - Urine hood top Urine Culture - Final No growth. Procedures Date of Service Date of Service: 06/01/22 Assessment & Plan Assessment and plan (1) Acute kidney injury: Status: Acute (2) Acute hyperkalemia: Status: Acute (3) Colon cancer: Status: Acute (4) Benign essential hypertension: Status: Acute (5) Metabolic acidosis: Status: Acute Plan 71-year-old gentleman with history of lni-dszqopn-ucgksakbz type 2 diabetes, hypertension, hypercholesterolemia, vitamin-D deficiency who was diagnosed with colon cancer s/p?ex lap & resection of transverse colon stricture w/ loop ileostomy on 04/29/22. He is now awaiting CHEMO by port to be placed 06/01/22. He presented to the emergency room 05/28/22 with nausea vomiting and feeling weak. Creatinine of 10mg/dL and potassium of 7meq/L with profound metabolic acidosis. 1. MARILYNN 2. Metabolic acidosis of renal failure 3. Hyperkalemia of renal failure Hemodynamic stress with renal hypo -perfusion and pre-renal azotemia which has undoubtedly progressed to ischemic tubular injury. Some Cr / GFR improvement with IVF support. He is has not normalized renal function because there are some nephron units with necrosis. 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 Progress Note: Quality Stroke Does the patient have a stroke diagnosis?: No
[2022-06-01 11:09] LABS: Glucose, Whole Blood 288 mg/dL (60-115)
--- NOTE | 2022-06-01 15:44 | P.CNID_ITS ---
History of Present Illness Data of Consult Service Date: 06/01/22 Requesting physician: Justen Chiu Primary Care Provider: Bimal Lepe MD HPI Reason for consult: bacteremia He presents with weakness,nausea and vomiting and now feeling better. He had symptoms several days. He has weakness as well. He has new diagnosis of colon cancer and had colonoscopy by Dr Fam in 2015 and at that time no abnormalities seen he says. He had loop ileostomy and has area that healed above surgical site and now has some clear fluid leaking. He is awaiting port for chemotherapy. He has blood culture coagulase negative staph. Review of Systems Review of Systems: Yes all other systems are reviewed and are negative PMFSH Past Medical History Medical History (Updated 06/01/22 @ 15:48 by Tierra Simms MD) Benign essential hypertension Coagulase negative Staphylococcus bacteremia Colon cancer Diabetes mellitus Overweight (BMI 25.0-29.9) Pure hypercholesterolemia Syncope Vitamin D deficiency Family History Family History Father Diabetes Hypertension Mother Diabetes Hypertension Mother Colon cancer Unknown Colon cancer Daughter Breast cancer Family history: reviewed and not pertinent Surgical History Surgical History History of colonoscopy Social History Social History Household Members: Spouse Housing: House Do you presently have visiting nurse or other home services: Yes (unsure) Alcohol intake: unknown Patient Tobacco Use Status: Never used Tobacco Smoked in Last 30 Days: No e-Cigarette/Vaping Use: Never Used Second Hand Smoke Exposure: No Use of substances other than those prescribed or required for medical reasons: No Currently Displaying Signs/Symptoms of Drug Intoxication Withdrawal: No Have you been hit, kicked, punched, or otherwise hurt by someone within the past year? If so, by whom?: No Do you feel safe in your current relationship?: Yes Is there a partner from a previous relationship who is making you feel unsafe now?: No Advance Directives: Yes Advance Directives on File: Yes Advance Directives Date on File: 12/24/21 Do you have thoughts of harming others: None Do you have a plan to hurt others: No Plan Recently lost weight without trying: Yes How much weight loss: 24-33 pounds Eating poorly because of decreased appetite: No Nutrition screen score: 5 Nutrition Risks: No Nutritional Risk Poor oral hygiene: No service: No Current occupational status: retired Cognitive needs: No Hearing needs: No Vision needs: Yes Meds Allergies Allergy/AdvReac Type Severity Reaction Status Date / Time No Known Allergies Allergy Verified 04/25/22 17:01 [No Known Allergies*] Active Medications: Current Medications Acetaminophen (Acetaminophen 325 Mg Tablet) 650 mg PO Q6H PRN PRN Reason: Pain, Mild (Pain Scale 1-3) Atorvastatin Calcium (Atorvastatin Calcium 10 Mg Tablet) 10 mg PO BEDTIME [facility] Last Admin: 05/31/22 21:20 Dose: 10 mg Insulin Human Lispro (Insulin Lispro 100 Unit/Ml 3 Ml Vial) 0 unit SUBCUT QIDACHS [facility]; Protocol Last Admin: 06/01/22 11:43 Dose: 6 unit Loratadine (Loratadine 10 Mg Tablet) 10 mg PO DAILY [facility] Last Admin: 06/01/22 08:21 Dose: 10 mg Multivitamins/Vitamin C (Multivitamin Tablet) 1 tab PO DAILY [facility] Last Admin: 06/01/22 08:21 Dose: 1 tab Omeprazole (Omeprazole 20 Mg Capsule.Dr) 20 mg PO DAILY@0630 [facility] Last Admin: 06/01/22 06:23 Dose: 20 mg Ondansetron HCl (Ondansetron Hcl 4 Mg/2 Ml Vial) 4 mg IVPUSH Q8H PRN PRN Reason: Nausea and Vomiting Pharmacy Consult (Consult Rx Perform Med Rec) 1 each MISCELLANE ONCE PRN PRN Reason: Consult order Sodium Chloride (0.9 % Sodium Chloride Flush 3 Ml Syringe) 3 ml IVFLUSH QSHIFT [facility] Last Admin: 06/01/22 08:21 Dose: 3 ml Vitamin D (Cholecalciferol (Vitamin D3) 25 Mcg Tablet) 25 mcg PO DAILY [facility] Last Admin: 06/01/22 08:21 Dose: 25 mcg Home Medications Medication Instructions Recorded Confirmed Last Taken Type cholecalciferol (vitamin D3) 25 25 mcg PO DAILY 03/10/20 05/28/22 04/26/22 History mcg (1,000 unit) capsule multivitamin 1 tab PO DAILY 04/26/22 05/28/22 04/25/22 History cetirizine 10 mg tablet 10 mg PO DAILY 05/28/22 05/28/22 Unknown History pantoprazole 40 mg tablet,delayed 40 mg PO DAILY 05/28/22 05/28/22 Unknown History release Physical Exam Vital Signs: Vital Signs: Last Vital Signs Temp 98.4 F 06/01/22 11:02 Pulse 78 06/01/22 11:02 Resp 20 06/01/22 11:02 BP 142/74 H 06/01/22 11:02 Pulse Ox 97 06/01/22 11:02 O2 Del Method 06/01/22 11:02 BMI result Body Mass Index 25.1 Const: General: cooperative HEENT: Head: Yes normal to inspection Face and sinus: Yes normal facial exam Mouth: Normal oral and palatal mucosa present Teeth and gingiva: dentition normal Eyes: General: appearance normal, both eyes and all related structures P upils: Equal, round and reactive pupils present Resp: Effort & Inspection: normal respiratory effort Cardio: Rate: regular rate Rhythm: regular rhythm GI: Other: clear .3cm drainage area above surgery Palpation (GI): Soft to palpation and nontender : General: Yes no CVA tenderness Back/Spine/Pelvis: Back: no CVA tenderness Skin: General skin exam: no rashes or lesions noted Neuro: General: moves all extremities Cranial nerves: Yes Equal, round and reactive pupils present Extrem: General: Yes normal to inspection Psych: Appearance: grossly normal Results Labs 05/28/22 10:31 06/01/22 08:11 Labs: BMP 06/01/22 08:11 Sodium 141 Potassium 4.7 Chloride 108 Carbon Dioxide 23 BUN 46 H Creatinine 2.06 H Calcium 8.2 L Microbiology Microbiology Results: Microbiology 05/28/22 10:34 Blood - Venous Blood Culture - Final Coag negative Staphylococcus 05/28/22 10:31 Blood - Venous Blood Culture - Preliminary No growth after 48 hours. 05/28/22 19:03 Urine clean catch - Urine hood top Urine Culture - Final No growth. Assessment and Plan (1) Coagulase negative Staphylococcus bacteremia: Status: Acute This bacteremia is a contaminant. This coagulase negative staph is not a barrier to portacath (can have with IR). Wound evaluation possibly per Surgery Time Spent With Patient Time: Total time managing care of this patient today ____ minutes.
[2022-06-01 16:06] LABS: Glucose, Whole Blood 105 mg/dL (60-115)
--- NOTE | 2022-06-01 16:45 | PC.NURSE ---
Per Dr Fam , dry dressing only to the midline incision wound
--- NOTE | 2022-06-01 17:01 | HO.PM.IMPN ---
Subjective Subjective Date of Service: 06/01/22 Interval History: 1/2 gram posiitive cocci,f/u on MARILYNN, hyperkalemia Review of Systems Creatine continues to trend down, has no new symptoms Physical Exam Vital Signs: Vital Signs: Last Vital Signs Temp 98.7 F 06/01/22 16:00 Pulse 70 06/01/22 16:00 Resp 18 06/01/22 16:00 BP 135/68 06/01/22 16:00 Pulse Ox 98 06/01/22 16:00 O2 Del Method 06/01/22 16:00 BMI result Body Mass Index 25.1 General: AO X 3, no acute distress Resp:? CTA bilateral CVS: S1,S2,RRR GI: +BS, NT, no distention, colostomy in place Skin: No rash Neuro:? motor grossly intact Psych: appropriate affect Objective Data Active Medications Acetaminophen (Acetaminophen 325 Mg Tablet) 650 mg PO Q6H PRN PRN Reason: Pain, Mild (Pain Scale 1-3) Atorvastatin Calcium (Atorvastatin Calcium 10 Mg Tablet) 10 mg PO BEDTIME [facility] Last Admin: 05/31/22 21:20 Dose: 10 mg Documented By: CASSIE Insulin Human Lispro (Insulin Lispro 100 Unit/Ml 3 Ml Vial) 0 unit SUBCUT QIDACHS [facility]; Protocol Last Admin: 06/01/22 16:43 Dose: Not Given Documented By: DANY Non-Admin Reason: No Insulin Coverage Loratadine (Loratadine 10 Mg Tablet) 10 mg PO DAILY [facility] Last Admin: 06/01/22 08:21 Dose: 10 mg Documented By: MARIE Multivitamins/Vitamin C (Multivitamin Tablet) 1 tab PO DAILY [facility] Last Admin: 06/01/22 08:21 Dose: 1 tab Documented By: MARIE Omeprazole (Omeprazole 20 Mg Capsule.) 20 mg PO DAILY@0630 [facility] Last Admin: 06/01/22 06:23 Dose: 20 mg Documented By: CASSIE Ondansetron HCl (Ondansetron Hcl 4 Mg/2 Ml Vial) 4 mg IVPUSH Q8H PRN PRN Reason: Nausea and Vomiting Pharmacy Consult (Consult Rx Perform Med Rec) 1 each MISCELLANE ONCE PRN PRN Reason: Consult order Sodium Chloride (0.9 % Sodium Chloride Flush 3 Ml Syringe) 3 ml IVFLUSH QSHIFT [facility] Last Admin: 06/01/22 15:49 Dose: 3 ml Documented By: DANY Vitamin D (Cholecalciferol (Vitamin D3) 25 Mcg Tablet) 25 mcg PO DAILY [facility] Last Admin: 06/01/22 08:21 Dose: 25 mcg Documented By: MARIE Labs 05/28/22 10:31 06/01/22 08:11 Labs: Laboratory Results - last 24 hr 05/31/22 06/01/22 06/01/22 19:49 07:16 08:11 Anion Gap 15 Estim Creat Clear Calc 28.3 Estimated GFR 32 POC Glucose 193 H 280 H Random Glucose 149 H Calcium 8.2 L 06/01/22 06/01/22 11:04 16:02 Anion Gap Estim Creat Clear Calc Estimated GFR POC Glucose 288 H 105 Random Glucose Calcium Assessment and Plan (1) Coagulase negative Staphylococcus bacteremia: Status: Acute (2) Acute kidney injury: Status: Acute (3) Acute hyperkalemia: Status: Acute (4) Colon cancer: Status: Acute Plan 71-year-old male with history of dka-uyrtwaj-zcormgrkv type 2 diabetes, hypertension, hypercholesterolemia, vitamin-D deficiency who was diagnosed with colon cancer s/p? ex lap, resection of transverse colon stricture, loop ileostomyand on 04/29/[address] Fam and is awaiting chemotherapy here here with MARILYNN, hyperkalemia and Metabolic acidosid MARILYNN suspect possible pre renal and ATN from renal hypOperfusion hypotension. Creatine is already trending down 10 --> 4 (2/5)--> 2 2/6 today and full recovery expected. Nephrology will be following. DC IVF,? 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 HTN--in light hypotension and now normal BPs, hold meds Colon cancer--outpatient f/u with Dr. Terrell. has colostomy was scheduled for? a Port ? coagulase neg staph : possible contaimination ,leucocytosis trending down DVT prophylaxis--Lovenox Full code,? plan discussed with spouse. inpatient need:marilynn/hyperkalemia : Monitor renal function electrolytes closely, in addition possible need of Port-A-Cath for treatment of colon cancer?chemo. Time Spent With Patient Time: Total time managing care of this patient today ____ minutes. Quality Stroke Does the patient have a stroke diagnosis?: No VTE Prior VTE?: No VTE Risk Level:: Medical - moderate - high VTE Device Contraindication: Treatment Not Indicated VTE Drug Contraindication: N/A - Med Ordered
[2022-06-01 19:42] LABS: Glucose, Whole Blood 185 mg/dL (60-115)
[2022-06-01] MEDS: Atorvastatin Calcium 10 MG TABLET PO (20:24)
[2022-06-02] MEDS: 0.9 % Sodium Chloride Flush 3 ML SYRINGE IVFLUSH ×2 (00:09→08:19)
[2022-06-02 03:23] VITALS: BP 152/77; PULSE 77; RESP 18; TEMP 37.1; O2SAT 98
[2022-06-02 07:22] LABS: Anion Gap 16 (12-20); Blood Urea Nitrogen 32 mg/dL (9-16); Calcium 8.4 mg/dL (8.4-10.2); Carbon Dioxide 22 mmol/L (22-29); Chloride 108 mmol/L (96-108); Creatinine Clr Calc Pharmacy 32.9; Estimated Glomerular Filt Rate 38; Glucose Random 149 mg/dL (60-115); Potassium 4.7 mmol/L (3.3-5.1); Sodium 141 mmol/L (135-145)
[2022-06-02 07:35] VITALS: BP 124/74; PULSE 73; RESP 16; TEMP 37.2; O2SAT 98
[2022-06-02 07:47] LABS: Glucose, Whole Blood 162 mg/dL (60-115)
[2022-06-02] MEDS: Insulin Lispro 100 UNIT/ML 3 ML VIAL SUBCUT (08:18)
[2022-06-02 08:31] LABS: Hematocrit 29.9 % (42.0-52.0); Hemoglobin 9.9 g/dl (14.0-18.0); Mean Corpuscular HGB Conc 33.1 g/dl (31.0-36.0); Mean Corpuscular Hemoglobin 26.7 pg (27.0-33.0); Mean Corpuscular Volume 80.6 fL (80.0-98.0); Mean Platelet Volume 10.3 fL (9.4-12.4); Platelet Count 133 X10*3/uL (160-400); Red Blood Count 3.71 X10*6/uL (4.60-5.80); Red Cell Distribution Width 13.6 % (11.0-16.0); White Blood Count 9.7 X10*3/uL (4.8-10.8)
[2022-06-02 08:33] LABS: INTERNATIONAL NORM RATIO 1.2 (0.9-1.1); Prothrombin Time 13.3 SEC (10.0-13.1)
[2022-06-02 11:17] VITALS: BP 131/73; PULSE 72; RESP 16; TEMP 36.6; O2SAT 98
--- NOTE | 2022-06-02 11:17 | P.PNNP_ITS ---
Subjective Subjective Date of Service: 06/02/22 Interval history: Events noted Family at bedside Physical Exam Vital Signs: Vital Signs: Last Vital Signs Temp 99.0 F 06/02/22 07:35 Pulse 73 06/02/22 07:35 Resp 16 06/02/22 07:35 BP 124/74 06/02/22 07:35 Pulse Ox 98 06/02/22 07:35 O2 Del Method 06/02/22 07:35 BMI result Body Mass Index 25.1 Const: Other: Constitutional: Alert, in no distress, Mental Status: Oriented to person, place and time. Eyes: Pupils are equal, round and reactive to light. Ear, Nose and Throat: Oropharynx clear, mucous membranes moist. Ears and nose without deformities. Trachea midline. Respiratory: Clear to auscultation. No wheezing, rales or rhonchi. Cardiovascular: S1 S2 regular. No murmurs, rubs or gallops. Gastrointestinal: Abdomen soft, non-tender, non-distended. Normal bowel sounds.?colostomy bag Neurologic: Cranial nerves II-XII grossly intact. No focal neurological defic its. Moves all extremities spontaneously.? Skin: No rashes or lesions.? Musculoskeletal: No cyanosis or clubbing. Psychiatric: Normal mood and affect? Objective Data Labs 06/02/22 08:19 06/02/22 06:29 Labs: Laboratory Results - last 24 hr 06/01/22 06/01/22 06/02/22 16:02 19:14 06:29 WBC RBC Hgb Hct MCV MCH MCHC RDW Plt Count MPV Absolute Nucleated RBC Nucleated RBC % (auto) PT INR Sodium 141 Potassium 4.7 Chloride 108 Carbon Dioxide 22 Anion Gap 16 BUN 32 H Creatinine 1.77 H Estim Creat Clear Calc 32.9 Estimated GFR 38 POC Glucose 105 185 H Random Glucose 149 H Calcium 8.4 06/02/22 06/02/22 06/02/22 07:37 08:19 08:19 WBC 9.7 RBC 3.71 L Hgb 9.9 L Hct 29.9 L MCV 80.6 MCH 26.7 L MCHC 33.1 RDW 13.6 Plt Count 133 L D MPV 10.3 Absolute Nucleated RBC 0.000 Nucleated RBC % (auto) 0.0 PT 13.3 H INR 1.2 H Sodium Potassium Chloride Carbon Dioxide Anion Gap BUN Creatinine Estim Creat Clear Calc Estimated GFR POC Glucose 162 H Random Glucose Calcium Microbiology Microbiology Results: Microbiology 05/28/22 10:34 Blood - Venous Blood Culture - Final Coag negative Staphylococcus 05/28/22 10:31 Blood - Venous Blood Culture - Preliminary No growth after 48 hours. 05/28/22 19:03 Urine clean catch - Urine hood top Urine Culture - Final No growth. Procedures Date of Service Date of Service: 06/02/22 Assessment & Plan Assessment and plan (1) Acute kidney injury: Status: Acute (2) Acute hyperkalemia: Status: Acute (3) Colon cancer: Status: Acute (4) Benign essential hypertension: Status: Acute (5) Metabolic acidosis: Status: Acute Plan 71-year-old gentleman with history of won-ygpgsgt-otssnvupw type 2 diabetes, hypertension, hypercholesterolemia, vitamin-D deficiency who was diagnosed with colon cancer s/p?ex lap & resection of transverse colon stricture w/ loop ileostomy on 04/29/22. He is now awaiting CHEMO by port to be placed 06/01/22. He presented to the emergency room 05/28/22 with nausea vomiting and feeling weak. Creatinine of 10mg/dL and potassium of 7meq/L with profound metabolic acidosis. 1. MARILYNN 2. Metabolic acidosis of renal failure 3. Hyperkalemia of renal failure Hemodynamic stress with renal hypo -perfusion and pre-renal azotemia which has undoubtedly progressed to ischemic tubular injury. Some Cr / GFR improvement with IVF support. He is has not normalized renal function because there are some nephron units with necrosis. 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 Progress Note: Quality Stroke Does the patient have a stroke diagnosis?: No
[2022-06-02 11:53] LABS: Glucose, Whole Blood 147 mg/dL (60-115)
--- NOTE | 2022-06-02 13:23 | MHC.CLN ---
F/U PO INTAKE 75-100% DIET RX: 1800DM-RECOMMEND INCREASING 2000DM DIET IN ADDITION, RECOMMEND RE-STARTING ENSURE MAX BID TO INCREASE KCALS/PROTEIN SUPP TO PROVIDE 300KCALS, 60G PROTEIN MONITOR PO INTAKE CLOSELY
--- NOTE | 2022-06-02 13:33 | PM.DS ---
DS: Providers Provider Date of Service: 06/02/22 Date of admission: 05/29/22 09:20 Primary care physician: Bimal Lepe MD Consults: 06/01/22 08:04 Consult to Infectious Diseases Routine Consulting Provider: Tierra Simms Reason for consultation: ?bacterermia vs contamination/leucocytosis Has provider been notified: No DS: Diagnosis Discharge Diagnosis (1) Acute kidney injury: Status: Acute (2) Acute hyperkalemia: Status: Acute (3) Colon cancer: Status: Acute (4) Benign essential hypertension: Status: Acute (5) Metabolic acidosis: Status: Acute DS: Summary Hospital Course Hospital Course: 71-year-old male with history of jfq-sovtnbh-puyqxruuy type 2 diabetes, hypertension, hypercholesterolemia, vitamin-D deficiency who was diagnosed with colon cancer s/p? ex lap, resection of transverse colon stricture, loop ileostomyand on 04/29/[address] Fam and is awaiting chemotherapy.? He has no underlying kidney disease.? On April 30 his creatinine was 1.? He presented to the emergency room yesterday with nausea vomiting and feeling weak and was advised to come to the emergency room by [facility].? He was noted to have a creatinine of 10 and potassium of 7 with marked metabolic acidosis.? Initial thought was that patient was to be admitted to ICU for possible emergent dialysis however there were no ICU bed so the patient was managed while in the emergency room with bicarb in an and the potassium lowering agent.? At this point his potassium has come down to 5.2 and creatinine has reduced to 7.6 to and no emergent dialysis is advise by Nephrology.? Patient overall said he feels better it is also of note that his blood pressure was markedly low when the checked at home by the [facility] yesterday but is much better and in fact within normal limits at this time. hospital course: Patient admitted for MARILYNN secondary to ATN and hypoperfusion-patient was given hydration initially-subsequently was seen by Nephrology thought to be kidney injury due to hypoperfusion, blood pressure medications were on hold initially for due to low blood pressure. Renal function seems to be improving, patient was encouraged for hydration and p.o. intake, as well as blood pressure medication adjusted . Blood pressure is fluctuating running between 130-150 range, we will start small dose amlodipine. Patient creatinine is 1.7 today. Monitor blood pressure out patiently . Metabolic acidosis and hyperkalemia probably related to acute renal failure: Seems to be improved with hydration , hyperkalemia also improved with bicarbarb drip. Monitor renal function and electrolytes outpatient. moniter dm : General via adjusted for renal function, metformin stopped until recovery of renal function. Currently given insulin sliding scale coverage monitor fingersticks at home. Colon cancer--outpatient f/u with Dr. Terrell. Plan for outpatient Port-A-Cath for tomorrow morning. plan: Acute kidney failure is improving-encouraged for hydration and p.o. intake, monitor blood pressures at home. 2.5 mg amlodipine started. Hold lisinopril until seen by Nephrology out patiently. Monitor renal function and electrolytes outpatient. Monitor fingersticks-metformin stopped, sitagliptin adjusted, in addition given diabetic supply with sliding scale coverage until renal function improves then may consider to reintroduce metformin. Colon cancer: Patient need Port-A-Cath possible tomorrow. Patient is to follow-up with Nephrology, Oncology outpatient. Also patient is to follow-up with surgery Dr. Fam as outpatient. Assessment and plan coordination time spent 50 minute. Time Spent with Patient Time attestation: Total time managing care of this patient today ____ minutes. Discharge coordination time: Greater than 30 minutes Quality: Safe Use of Opioids Does Pt have an Active Cancer Diagnosis on the Problem List?: No Quality: Stroke Does the patient have a stroke diagnosis?: No Physical Exam Vital Signs: Vital Signs: Last Vital Signs Temp 97.8 F 06/02/22 11:17 Pulse 72 06/02/22 11:17 Resp 16 06/02/22 11:17 BP 131/73 06/02/22 11:17 Pulse Ox 98 06/02/22 11:17 O2 Del Method 06/02/22 11:17 BMI result Body Mass Index 25.1 ?General: AO X 3, no acute distress Resp:? CTA bilateral CVS: S1,S2,RRR GI: +BS, NT, no distention, colostomy in place Skin: No rash Neuro:? motor grossly intact Psych: appropriate affect DS: Data Data Completed and Pending Completed studies during hospitalization [Text1]: Procedures Bypass Ileum to Cutaneous, Open Approach (04/26/22) Excision of Transverse Colon, Open Approach (04/26/22) Labs on day of discharge: Laboratory Results - last 24 hr 06/01/22 06/01/22 06/02/22 16:02 19:14 06:29 WBC RBC Hgb Hct MCV MCH MCHC RDW Plt Count MPV Absolute Nucleated RBC Nucleated RBC % (auto) PT INR Sodium 141 Potassium 4.7 Chloride 108 Carbon Dioxide 22 Anion Gap 16 BUN 32 H Creatinine 1.77 H Estim Creat Clear Calc 32.9 Estimated GFR 38 POC Glucose 105 185 H Random Glucose 149 H Calcium 8.4 06/02/22 06/02/22 06/02/22 07:37 08:19 08:19 WBC 9.7 RBC 3.71 L Hgb 9.9 L Hct 29.9 L MCV 80.6 MCH 26.7 L MCHC 33.1 RDW 13.6 Plt Count 133 L D MPV 10.3 Absolute Nucleated RBC 0.000 Nucleated RBC % (auto) 0.0 PT 13.3 H INR 1.2 H Sodium Potassium Chloride Carbon Dioxide Anion Gap BUN Creatinine Estim Creat Clear Calc Estimated GFR POC Glucose 162 H Random Glucose Calcium 06/02/22 11:49 WBC RBC Hgb Hct MCV MCH MCHC RDW Plt Count MPV Absolute Nucleated RBC Nucleated RBC % (auto) PT INR Sodium Potassium Chloride Carbon Dioxide Anion Gap BUN Creatinine Estim Creat Clear Calc Estimated GFR POC Glucose 147 H Random Glucose Calcium Imaging Chest x-ray: Radiologist's impression: ITS Impressions Abdomen/Pelvis CT 05/28/22 13:51 IMPRESSION: 1. Status post ileostomy through the anterior abdominal wall. Postsurgical changes at the hepatic flexure of the colon. No abscess or evidence of perforation. 2. Stable 1.5 cm low attenuating lesion in the right lobe of liver unchanged since CAT scan 04/09/2022. Fleischner guidelines were followed. Discharge Plan Discharge Anticipated Discharge Date/Time: 06/02/22 12:49 Patient Disposition: Home, Self-Care Discharge Diagnosis: marilynn , hyperkalemia, metabolic acidosis, recent colon cancer history. Referrals: Bimal Lepe MD [Primary Care Provider] - 1 Week (CALL OFFICE TO SCHEDULE FOLLOW UP APPOINTMENT WITH PCP) Layla Terrell MD [Physician] - 1 Week (follow up outpatient) Nato Lerner MD [Physician] - 1 Week (follow up outpatient) Discharge Medications: New (DME) FreeStyle Lite Strips Strip Qty: 100 0RF Rx Instructions: Test four times a day or as directed. (DME) blood-glucose meter [FreeStyle Lite Meter] Kit Qty: 1 0RF Rx Instructions: As Directed alcohol swabs Pads, Medicated 1 pad TOPICAL QIDACHS Qty: 100 0RF Rx Instructions: Use four times a day or as directed. insulin lispro [Humalog KwikPen Insulin] 100 unit/mL insulin pen 0 sliding scale dose SUBCUT QIDACHS Qty: 15 0RF Rx Instructions: Blood Sugar: <150 - 0 units 151-200 - 2 units 201-250 - 4 units 251-300 - 6 units 301-350 - 8 units >350 - 10 units (DME) pen needle, diabetic 32 gauge x 1/4 needle Qty: 100 0RF Rx Instructions: Use four times a day or as directed. (DME) lancets [FreeStyle Lancets] 28 gauge misc Qty: 100 0RF Rx Instructions: Test four times a day or as directed. Continued cholecalciferol (vitamin D3) 25 mcg (1,000 unit) capsule 25 mcg PO DAILY atorvastatin 10 mg tablet 10 mg PO BEDTIME 90 Days Qty: 90 1RF (DME) FreeStyle Test Strip See Rx Instructions .Route Qty: 100 3RF Rx Instructions: As directed multivitamin Tablet 1 tab PO DAILY pantoprazole 40 mg Tablet,Delayed Release (Dr/Ec) 40 mg PO DAILY cetirizine 10 mg Tablet 10 mg PO DAILY Changed Januvia 100 mg tablet 50 mg PO DAILY 90 Days Qty: 90 1RF amlodipine 10 mg tablet 2.5 mg PO DAILY Qty: 30 0RF Discontinued metformin 500 mg tablet extended release 24 hr 500 mg PO BID 90 Days Qty: 180 1RF lisinopril 20 mg tablet 20 mg PO DAILY 90 Days Qty: 90 1RF Discharge Orders: Discharge Order (Routine); Ordered 06/02/22 Ordered By: Justen Chiu Diet: Diabetic diet Activity on Discharge: As tolerated Stand Alone Forms: Patient Portal Discharge page Care Plan Goals: Patient admitted for MARILYNN secondary to ATN and hypoperfusion-patient was given hydration initially-subsequently was seen by Nephrology thought to be kidney injury due to hypoperfusion, blood pressure medications were on hold initially for due to low blood pressure. Renal function seems to be improving, patient was encouraged for hydration and p.o. intake, as well as blood pressure medication adjusted . Blood pressure is fluctuating running between 130-150 range, we will start small dose amlodipine. Patient creatinine is 1.7 today. Monitor blood pressure out patiently . Metabolic acidosis and hyperkalemia probably related to acute renal failure: Seems to be improved with hydration , hyperkalemia also improved with bicarbarb drip. Monitor renal function and electrolytes outpatient. moniter dm : General via adjusted for renal function, metformin stopped until recovery of renal function. Currently given insulin sliding scale coverage monitor fingersticks at home. Colon cancer--outpatient f/u with Dr. Terrell. Plan for outpatient Port-A-Cath for tomorrow morning. Health Concerns: As above. Plan of Treatment: As above. Assessment: As above.
--- NOTE | 2022-06-02 13:47 | MHC.CM.PN ---
pt dcd home no skilled servceis orderd by
--- NOTE | 2022-06-02 15:20 | PM.EVENT ---
Event Note Date of Service: 06/02/22 Event Note: Patient is wellknown to me admitted for hypertensive nephropathy midline incision with small area of skin separation, clean, not infected continue dry dressings daily to allow healing by secondary intention Time Spent With Patient Time: Total time managing care of this patient today ____ minutes.
== END 2022-06-02 17:06 | disposition home or self-care (01) | DRG 469 ==
LOC: HO.ED 19:10 → HO.EDOVER 05-29 09:26 → HO.IMC 05-29 16:57
PROVIDERS: Internal Medicine; Nurse Practitioner Family; Admitting Provider Internal Medicine; Emergency Provider Emergency Medicine; PCP Internal Medicine; Visit Provider Internal Medicine
DX: N17.0 Acute kidney failure with tubular necrosis (principal); E87.21 Acute metabolic acidosis; C18.4 Malignant neoplasm of transverse colon; F32.A Depression, unspecified; E55.9 Vitamin D deficiency, unspecified; E11.9 Type 2 diabetes mellitus without complications; E78.00 Pure hypercholesterolemia, unspecified; E87.5 Hyperkalemia; Z20.822 Contact with and (suspected) exposure to COVID-19; Z93.2 Ileostomy status; Z79.4 Long term (current) use of insulin; Z79.899 Other long term (current) drug therapy
CPT/HCPCS: 36415; 74176; 80048; 80053; 81001; 82803; 82947; 83605; 83690; 83735; 84484; 85025; 85027; 85610; 87040; 87086; 87147; 87205; 87502; 87635; 93005; 99285; C1758; J0611; J2405

== ENCOUNTER 2022-06-03 07:15 | Day surgery (SDC) | payer OTHER, MEDICARE, SELFPAY ==
[2022-06-03] VITALS (8 sets, daily range): BP systolic 96–118; BP diastolic 61–68; PULSE 72–91; RESP 16; TEMP 36.4–36.6; O2SAT 95–96; BMI 23.6
--- NOTE | ~2022-06-03 | IR_ITS ---
PROCEDURE: IR INSERTION OF TUNNEL CATHETER CLINICAL INFORMATION: Colon cancer. Needs IV chemotherapy. COMPARISON: None TECHNIQUE: Following explaining ultrasound and fluoroscopy-guided placement of port catheter procedure, benefits and risks, a written consent was obtained. Patient was placed supine on fluoroscopy table and preliminary ultrasound imaging was obtained through the right neck. An optimal site was selected, marked and draped in the usual sterile manner with 2% chlorhexidine solution. 1% lidocaine was inserted at puncture site. Under sterile ultrasound guidance, the right jugular vein was punctured and a thin guidewire was advanced through the single wall needle after observing venous return. The needle was withdrawn and 5-Colombian dilator with sheath was placed. Approximately 1 gauze length from the right anterior neck wall incision, 1% lidocaine was injected along the anterior chest wall and skin was infiltrated. A small skin incision was performed. More lidocaine with epinephrine was injected in the subcutaneous soft tissues and a small pocket was dissected. A trial of hardware was performed to the port within the pocket. Subsequently, the port attached to the catheter was inserted in the pocket and the port was anchored to the subcutaneous soft tissues with 2 nonabsorbable 3-0 nylon sutures. A blunt tunneler attached to the catheter was then tunneled subcutaneous from the right anterior chest wall incision to the right neck incision and pulled through the neck incision. The tunneler was removed and the catheter was sized appropriately. The guidewire and the dilator were removed and a 0.035 J-wire was advanced and placed in the SVC under fluoroscopy. The 5-Colombian dilator was removed and a 6.6-Colombian dilator with peel-away sheath was placed over the guidewire. The dilator and the guidewire was removed and precut catheter was then inserted through the peel-away sheath as the peel-away sheath was removed. The catheter tip now lies within the mid SVC. A single image was obtained for documentation. The port was then flushed with heparinized saline. Absorbable 3-0 sutures were then placed subcutaneously along the right anterior chest wall followed by absorbable sutures along the skin. The right neck incision was also sutured with 3-0 absorbable sutures. Sterile dressing applied postprocedure. Patient tolerated procedure extremely well. All elements of maximal sterile barrier technique followed including use of cap, mask, sterile gown, sterile gloves, a sterile full body drape and hand hygiene. Also followed skin preparation with 2% chlorhexidine for cutaneous antisepsis, and sterile ultrasound preparation with sterile gel and probe cover when applicable. Conscious sedation was utilized and patient monitored for 45 minutes by IR nursing and IR radiologist. FINDINGS: On preliminary ultrasound imaging there is a widely patent right jugular vein. A 20 cm long 6.6-Colombian port catheter was placed with its tip in the mid SVC and the hardware along the right anterolateral upper chest wall. IR/IR cvc insert tunnel w prt/metal bench patternmaker IMPRESSION: Successful ultrasound and fluoroscopy-guided placement of a right port catheter with its tip in mid SVC. FLUOROSCOPY TIME: 1.3 minutes. DOSE AREA PRODUCT: 288 cGy-cm2. SEDATION TIME: 45 minutes. IMAGES: 1 ultrasound. 1 x-ray.
--- NOTE | ~2022-06-03 | IR_ITS ---
PROCEDURE: IR INSERTION OF TUNNEL CATHETER CLINICAL INFORMATION: Colon cancer. Needs IV chemotherapy. COMPARISON: None TECHNIQUE: Following explaining ultrasound and fluoroscopy-guided placement of port catheter procedure, benefits and risks, a written consent was obtained. Patient was placed supine on fluoroscopy table and preliminary ultrasound imaging was obtained through the right neck. An optimal site was selected, marked and draped in the usual sterile manner with 2% chlorhexidine solution. 1% lidocaine was inserted at puncture site. Under sterile ultrasound guidance, the right jugular vein was punctured and a thin guidewire was advanced through the single wall needle after observing venous return. The needle was withdrawn and 5-Ecuadorean dilator with sheath was placed. Approximately 1 gauze length from the right anterior neck wall incision, 1% lidocaine was injected along the anterior chest wall and skin was infiltrated. A small skin incision was performed. More lidocaine with epinephrine was injected in the subcutaneous soft tissues and a small pocket was dissected. A trial of hardware was performed to the port within the pocket. Subsequently, the port attached to the catheter was inserted in the pocket and the port was anchored to the subcutaneous soft tissues with 2 nonabsorbable 3-0 nylon sutures. A blunt tunneler attached to the catheter was then tunneled subcutaneous from the right anterior chest wall incision to the right neck incision and pulled through the neck incision. The tunneler was removed and the catheter was sized appropriately. The guidewire and the dilator were removed and a 0.035 J-wire was advanced and placed in the SVC under fluoroscopy. The 5-Ecuadorean dilator was removed and a 6.6-Ecuadorean dilator with peel-away sheath was placed over the guidewire. The dilator and the guidewire was removed and precut catheter was then inserted through the peel-away sheath as the peel-away sheath was removed. The catheter tip now lies within the mid SVC. A single image was obtained for documentation. The port was then flushed with heparinized saline. Absorbable 3-0 sutures were then placed subcutaneously along the right anterior chest wall followed by absorbable sutures along the skin. The right neck incision was also sutured with 3-0 absorbable sutures. Sterile dressing applied postprocedure. Patient tolerated procedure extremely well. All elements of maximal sterile barrier technique followed including use of cap, mask, sterile gown, sterile gloves, a sterile full body drape and hand hygiene. Also followed skin preparation with 2% chlorhexidine for cutaneous antisepsis, and sterile ultrasound preparation with sterile gel and probe cover when applicable. Conscious sedation was utilized and patient monitored for 45 minutes by IR nursing and IR radiologist. FINDINGS: On preliminary ultrasound imaging there is a widely patent right jugular vein. A 20 cm long 6.6-Ecuadorean port catheter was placed with its tip in the mid SVC and the hardware along the right anterolateral upper chest wall. IR/IR us guide venous access IMPRESSION: Successful ultrasound and fluoroscopy-guided placement of a right port catheter with its tip in mid SVC. FLUOROSCOPY TIME: 1.3 minutes. DOSE AREA PRODUCT: 288 cGy-cm2. SEDATION TIME: 45 minutes. IMAGES: 1 ultrasound. 1 x-ray.
[2022-06-03 08:01] LABS: Glucose, Whole Blood 168 mg/dL (60-115)
[2022-06-03] MEDS: Lidocaine HCl 1 % MPF 30 ML VIAL 10 ML SUBCUT (10:41)
== END 2022-06-03 12:58 | disposition home or self-care (01) ==
PROVIDERS: PCP Internal Medicine; Visit Provider Radiology Diagnostic Radiology
DX: Z45.2 Encounter for adjustment and management of vascular access device (principal); C18.9 Malignant neoplasm of colon, unspecified; Z80.0 Family history of malignant neoplasm of digestive organs; I10 Essential (primary) hypertension; E11.9 Type 2 diabetes mellitus without complications; E78.00 Pure hypercholesterolemia, unspecified; E55.9 Vitamin D deficiency, unspecified; R55 Syncope and collapse; Z79.899 Other long term (current) drug therapy
CPT/HCPCS: 36561; 76937; 82947; 99152; 99153; C1769; C1788; J0690; J1642; J2250; J3010

== ENCOUNTER → 2022-06-07 14:17 | Outpatient (BNVA) | payer OTHER, MEDICARE, SELFPAY | PROVIDERS: PCP Internal Medicine; Referring Provider Internal Medicine; Visit Provider Surgery | DX: Z13.89 Encounter for screening for other disorder (principal) ==

== ENCOUNTER → 2022-06-11 14:00 | Outpatient (BNV) | payer MEDICARE, OTHER, SELFPAY | PROVIDERS: PCP Internal Medicine; Visit Provider Internal Medicine | DX: C18.9 Malignant neoplasm of colon, unspecified (principal) | CPT/HCPCS: 99213; 99214; G2211 ==

== ENCOUNTER 2022-06-15 10:42 | Outpatient (REF) | payer OTHER, MEDICARE, SELFPAY ==
--- NOTE | ~2022-06-15 | PE_ITS ---
EXAMINATION: Fluorine-18 FDG PET/CT Scan CLINICAL INDICATION: Subsequent treatment management. Colon cancer, restaging. PROCEDURE: 60 minutes following the intravenous administration of 19.5 mCi of fluorine 18 FDG, images from the base of the skull to the mid thighs were obtained using a combined PET/CT scanner with CT scan based attenuation correction. No oral contrast was administered. No intravenous contrast was administered. Transverse, coronal, sagittal, and volume reconstruction projections were obtained. The patient's blood glucose as determined by a finger stick, was 140 mg/dl immediately prior to injection. Total CT exam dose-length product 328.70 mGy-cm * These CT images were obtained using dose optimization techniques as appropriate, variously including the following: Automated exposure control * Adjustment of mA and/or kV according to patient size (this includes techniques or standardized protocols for targeted exams where dose is matched to indication/reason for exam; i.e. extremities or head) * Use of iterative reconstruction technique COMPARISON: No previous PET/CT scan is available for comparison. CT scan of the abdomen and pelvis dated 05/28/2022 is available for comparison. FINDINGS: (Slice numbers described in this report are numbered superiorly to inferiorly with slice #1 in the head) NECK AND VISUALIZED HEAD: No foci of abnormal FDG activity are noted. The distribution of FDG activity is physiological. There is no cervical lymphadenopathy. THORAX: There is minimally increased FDG activity associated with a few centimeters of length adjacent to the supraclavicular anterior aspect of the recently placed internal jugular catheter associated with the right chest port which terminates in the superior vena cava. This likely represents minimal inflammatory changes at this site, showing SUVmax 2.7, slice 58/267. There are no other foci of abnormal FDG activity in the chest. No pulmonary nodules are visualized. There is no pleural or pericardial fluid or pneumothorax. There is no mediastinal, supraclavicular, or axillary lymphadenopathy. ABDOMEN AND PELVIS: There are no foci of abnormal FDG activity in the abdomen and pelvis. Multiple metallic sutures are present in the hepatic flexure of the large bowel with no associated abnormal FDG activity. There is also mildly increased FDG activity in the midline lower abdominal surgical incision likely representing mild postsurgical inflammatory changes and unchanged on the CT images from 05/28/2022. A right lower quadrant ileostomy is present with minimally increased FDG activity within the bowel similar to diffuse FDG activity throughout the gastrointestinal tract, the latter without a suspicious focal noted and likely physiological. There is a stable 1.5 cm hypodensity in the right lobe of the liver unchanged from the 05/28/2022 CT scan and showing no abnormal increased or decreased FDG activity. The liver is otherwise unremarkable. The gallbladder, spleen comment kidneys, adrenal glands, and pancreas are unremarkable. There is no retroperitoneal, mesenteric, pelvic or inguinal lymphadenopathy. The pelvic organs are unremarkable. MUSCULOSKELETAL: There are no foci of abnormal FDG activity in the osseous structures. There are mild degenerative changes in the spine but no suspicious sclerotic or lytic lesions are visualized. VASCULAR: Diffuse vascular calcifications including coronary are noted. PET/PET CT fusion whole body IMPRESSION: 1. Postsurgical changes are noted in the abdomen as described above with mild FDG activity associated with the recent surgical incision which likely represent mild postoperative inflammatory changes. 2. There are no abnormalities suspicious for metastatic or other malignant lesions. 3. Very mild FDG activity adjacent to a small portion of the chest port catheter in the right supraclavicular region likely represents inflammatory changes from its recent placement. 4. Vascular calcifications including coronary.
== END 2022-06-15 10:43 | disposition home or self-care (01) ==
LOC: HO.PET 10:42
PROVIDERS: PCP Internal Medicine; Visit Provider Internal Medicine
DX: Z13.89 Encounter for screening for other disorder (principal)

== ENCOUNTER → 2022-06-17 14:15 | Outpatient (BNVA) | payer OTHER, MEDICARE, SELFPAY | PROVIDERS: PCP Internal Medicine; Visit Provider Surgery | DX: Z13.89 Encounter for screening for other disorder (principal) | CPT/HCPCS: 99212 ==

== ENCOUNTER 2022-07-15 06:47 | Outpatient (REF) | payer OTHER, MEDICARE, SELFPAY ==
[2022-07-15 07:49] LABS: Hematocrit 33.1 % (42.0-52.0); Hemoglobin 10.6 g/dl (14.0-18.0); Mean Corpuscular Volume 81.3 fL (80.0-98.0); Mean Platelet Volume 9.8 fL (9.4-12.4); Platelet Count 153 X10*3/uL (160-400); Red Blood Count 4.07 X10*6/uL (4.60-5.80); White Blood Count 6.2 X10*3/uL (4.8-10.8)
[2022-07-15 07:58] LABS: Estimated Average Glucose 197 mg/dL; Hemoglobin A1c % 8.5 %
[2022-07-15 08:08] LABS: Appearance Urine Clear; Color Urine Yellow; Glucose Urine UA >=1000 mg/dL (Negative); Leukocyte Esterase Urine Negative (Negative); Nitrite Urine Negative (Negative); Specific Gravity - Urine 1.025 (1.005-1.025); UMIC TRIGGER UACC YES; Urine Blood Negative (Negative); Urine Ketones Negative (Negative); Urine Protein Negative (Neg-Trace)
[2022-07-15 08:14] LABS: Bacteria Urine None Seen (None Seen); Hyaline Casts Urine 0-2 /LPF (0-2); RBC Urine 0-2 /HPF (0-2); Squamous Epithelial Cell Urine 0-2 /HPF (0-2); WBC Urine 0-5 /HPF (0-5)
[2022-07-15 08:25] LABS: Band Neutrophils Percent 2 % (3-5); Basophils Abs Manual 0.1 X10*3/uL (0.0-0.2); Basophils Percent Manual 1 % (0-2); Eosinophils Absolute Manual 0.2 X10*3/uL (0.0-0.4); Eosinophils Percent Manual 3 % (0-4); Lymphocytes Absolute Manual 1.6 X10*3/uL (1.2-4.9); Lymphocytes Percent Manual 26 % (20-40); Metamyelocytes Absolute 0.3 X10*3/uL; Metamyelocytes Percent 5 %; Monocytes Absolute Manual 0.6 X10*3/uL (0.1-1.2); Monocytes Percent Manual 9 % (2-11); Myelocytes Absolute 0.1 X10*/uL; Myelocytes Percent 2 %; Neutrophils Absolute Manual 3.3 X10*3/uL (2.0-8.3); Neutrophils Percent Manual 52 % (45-73); Platelet Estimate SLIGHTLY DECREASED (NORMAL); Platelet Morphology Comment NORMAL; RBC Morphology NORMAL
[2022-07-15 09:26] LABS: Alanine Aminotransferase 25 U/L (0-40); Albumin Level 3.9 g/dL (3.5-5.0); Alkaline Phosphatase 108 U/L (39-117); Anion Gap 16 (12-20); Aspartate Amino Transferase 21 U/L (5-37); Bilirubin Total 0.4 mg/dL (0.0-1.0); Blood Urea Nitrogen 13 mg/dL (9-16); Calcium 9.4 mg/dL (8.4-10.2); Carbon Dioxide 21 mmol/L (22-29); Chloride 103 mmol/L (96-108); Cholesterol 170 mg/dL; Estimated Glomerular Filt Rate 54; Glucose Fasting 434 mg/dL (60-99); HDL Cholesterol 58 mg/dL; LDL Cholesterol Calculated 88 mg/dl; Potassium 4.8 mmol/L (3.3-5.1); Sodium 135 mmol/L (135-145); Total Protein 6.2 g/dL (6.5-8.0); Triglycerides 121 mg/dL
== END 2022-07-15 06:48 | disposition home or self-care (01) ==
LOC: HO.LAB 06:47
PROVIDERS: PCP Internal Medicine; Visit Provider Internal Medicine
DX: E78.00 Pure hypercholesterolemia, unspecified (principal); E11.9 Type 2 diabetes mellitus without complications
CPT/HCPCS: 36415; 80053; 80061; 81001; 81003; 83036; 85007; 85025; 85027

== ENCOUNTER 2022-07-18 09:41 | Emergency (ER) | payer OTHER, MEDICARE, SELFPAY ==
--- NOTE | ~2022-07-18 | CT_ITS ---
EXAMINATION: CT ABDOMEN AND PELVIS WITHOUT CONTRAST CLINICAL INFORMATION: Abdominal pain, colon cancer and colectomy. COMPARISON: None available. TECHNIQUE: Multidetector volumetric imaging was performed from the superior aspect of the liver through the pubic symphysis. Sagittal and coronal reformatted images were obtained on the technologist's workstation. This CT examination was performed using dose optimization techniques as appropriate, variously including the following: *Automated exposure control *Adjustment of mA and/or kV according to patient size (this includes techniques or standardized protocols for targeted exams where dose is matched to indication/reason for exam; i.e. extremities or head) *Use of iterative reconstruction technique DLP: 430 mGy-cm FINDINGS: LUNG BASES: The visualized lung bases are unremarkable. LIVER, GALLBLADDER, AND BILIARY TREE: The liver is normal in size, shape, and attenuation. There are several hypodense areas in the right and left hepatic lobe largest measuring 1.1 cm on axial image 17/3. A punctate radiopaque calculi is visualized in the neck of the gallbladder. PANCREAS: Unremarkable. SPLEEN: Unremarkable. ADRENAL GLANDS: Unremarkable. KIDNEYS AND URETERS: The kidneys are normal in size, shape, and attenuation. No hydronephrosis, hydroureter, or calculi seen. No perinephric stranding. BLADDER: Unremarkable. GASTROINTESTINAL TRACT: There are postsurgical changes along the right ascending colon with patent lumen. Scattered stool is seen throughout the colon. There is fecal residue seen in the loop of bowel left upper mid quadrant likely closed loop obstruction from adhesion, less likely twist. The distal small bowel loops are normal. There is no free fluid or free air. ABDOMINAL WALL: There is a right mid/lower quadrant colostomy. LYMPH NODES: Normal. VASCULAR: Unremarkable. PELVIC VISCERA: Unremarkable. OSSEOUS STRUCTURES: No aggressive lytic or sclerotic process seen. CT/CT abdomen pelvis wo IV con IMPRESSION: 1. Postsurgical changes along the right ascending colon with patent lumen. 2. There is fecal residue seen in a loop of bowel left upper mid quadrant likely closed loop obstruction from adhesion, less likely twist. 3. Likely hepatic cyst. 4. No free air or free fluid. Fleischner guidelines were followed.
[2022-07-18 09:53] VITALS: BP 141/75; PULSE 99; RESP 18; TEMP 36.6; O2SAT 99; BMI 25.2
[2022-07-18 13:50] VITALS: BP 147/77; PULSE 93; RESP 16; TEMP 36.7; O2SAT 100
--- NOTE | 2022-07-18 13:58 | PC.NURSE ---
pt reporting pain in abdomen that was more severe last night but has lessened to a 4/10 today. pt AOx3. ostomy bag due to colon cancer. current contents of bag are liquid and pt reports that typically the contents are solid. Vitals stable. awaiting labs and ct scan
--- NOTE | 2022-07-18 14:15 | ED_ITS ---
HPI - Abdominal Pain General Chief Complaint: Abdominal Pain Stated Complaint: Vomiting/Colostomy bag issues Time Seen by Provider: 07/18/22 13:51 Source: patient and family (Spouse) Mode of arrival: ambulatory Limitations: no limitations History of Present Illness HPI narrative: 71-year-old male history of colon cancer status post colectomy with diverting ileostomy about 2 months ago. Patient returned today for severe abdominal pain last night, with empty ileostomy bag, patient had 1 time vomiting, while patient waiting in the emergency department started to have drainage in ileostomy bag with significant improvement of the abdominal pain and nausea with vomiting, ileostomy bag was emptied by the patient twice in the emergency department with passing gas and fluid. Related Data Home Medications Medication Instructions Recorded Confirmed cholecalciferol (vitamin D3) 25 25 mcg PO DAILY 03/10/20 06/11/22 mcg (1,000 unit) capsule multivitamin 1 tab PO DAILY 04/26/22 06/11/22 cetirizine 10 mg tablet 10 mg PO DAILY 05/28/22 06/11/22 pantoprazole 40 mg tablet,delayed 40 mg PO DAILY 05/28/22 06/11/22 release Previous Rx's Medication Instructions Recorded atorvastatin 10 mg tablet 10 mg PO BEDTIME 90 days #90 tabs 02/03/22 blood sugar diagnostic (FreeStyle #100 ea 05/17/22 Test strips) blood-glucose meter (FreeStyle #1 ea 06/02/22 Lite Meter kit) insulin lispro 100 unit/mL 0 sliding scale dose subcut 06/02/22 subcutaneous pen (Humalog KwikPen QIDACHS #15 mL (U-100) Insulin) lancets 28 gauge (FreeStyle #100 ea 06/02/22 Lancets) pen needle, diabetic 32 gauge x #100 ea 06/02/22 1/ sitagliptin phosphate 100 mg 50 mg PO DAILY 90 days #90 tabs 06/02/22 tablet (Januvia) blood sugar diagnostic (FreeStyle #100 ea 06/10/22 Lite Strips) dexamethasone 4 mg tablet 4 mg PO BID #30 tabs 06/11/22 ondansetron 8 mg disintegrating 8 mg PO Q8H PRN Nausea #60 tabs 06/11/22 tablet BD Ultra Fine Floridalma Pen Needle 32 G #100 ea 06/29/22 x /32 alcohol swabs 1 pad topical QIDACHS #100 ea 06/29/22 amlodipine 10 mg tablet 2.5 mg PO DAILY #30 tabs 06/29/22 glipizide 5 mg tablet, extended 5 mg PO DAILY #90 tabs 07/07/22 release 24 hr (Glucotrol XL) Allergies Allergy/AdvReac Type Severity Reaction Status Date / Time No Known Allergies Allergy Verified 07/18/22 09:53 [No Known Allergies*] Review of Systems Review of Systems All other systems are reviewed and are negative Constitutional: Reports as per HPI and Reports no additional constitutional complaints Eyes: Reports as per HPI and Reports no additional eye complaints Reports system reviewed and no additional complaints, except as documented Cardiovascular: Reports as per HPI and Reports no additional cardiovascular complaints Respiratory: Reports as per HPI and Reports no additional respiratory complaints Gastrointestinal: Reports as per HPI and Reports no additional gastrointestinal complaints Genitourinary: Reports no additional female genitourinary complaints Musculoskeletal: Reports no additional musculoskeletal complaints Skin/Breast: Reports system reviewed and no additional complaints, except as docu Psychiatric: Reports no additional psychiatric complaints Endocrine: Reports no additional endocrine complaints Hematologic/Lymphatic: Reports no additional hematologic/lymphatic complaints Allergic/Immunologic: Reports no additional allergic/immunologic complaints Reports system reviewed and no additional complaints, except as documented and Reports Abnormal speech present [facility] Past Medical History Medical History Benign essential hypertension Coagulase negative Staphylococcus bacteremia Colon cancer Diabetes mellitus Overweight (BMI 25.0-29.9) Pure hypercholesterolemia Syncope Vitamin D deficiency Surgical History History of colonoscopy Status post colon resection (~04/29/22) Family History Family History Father Diabetes Hypertension Mother Diabetes Hypertension Mother Colon cancer Unknown Colon cancer Daughter Breast cancer Social History Social History Household Members: Spouse Housing: House Do you presently have visiting nurse or other home services: Yes (unsure) Alcohol intake: never Patient Tobacco Use Status: Never used Tobacco e-Cigarette/Vaping Use: Never Used Second Hand Smoke Exposure: No Use of substances other than those prescribed or required for medical reasons: No Advance Directives: No Advance Directives Information Provided: No Advance Directives Date on File: 12/24/21 service: No Current occupational status: retired Cognitive needs: No Hearing needs: No Vision needs: Yes Physical Exam ED Vital Signs: Vital Signs - 24 hr 07/18/22 09:53 07/18/22 13:50 07/18/22 15:47 Temperature 98 F 98.0 F 98.2 F Pulse Rate 99 93 93 Respiratory Rate 18 16 16 Blood Pressure 141/75 H 147/77 H 152/83 H Pulse Oximetry 99 100 97 Oxygen Delivery Method Room Air Room Air Room Air BMI result Body Mass Index 25.2 Vital signs have been reviewed as appeared to be correct. Blood pressure normal. Heart rate normal. Respiration rate normal. Temperature normal. O xygen saturation normal. Appearance: Alert. Oriented X3. No acute distress. Head: Normal external exam. Normocephalic. Atraumatic. No Hunter signs noted. No raccoon eyes noted Eyes: PERRLA. EOMI. Conjunctiva and sclera normal. Eyelids normal. ENT: TM's Normal. Pharynx normal. Uvula midline. Moist mucous membranes. No trismus noted. No drooling noted. No muffled voice noted. Neck: Normal inspection. Neck supple. FROM. No adenopathy. Thyroid Normal. No meningeal signs. No neck mass noted. CVS: Normal heart rate and rhythm. Heart sound normal. No murmurs noted. Pulses normal throughout. Respiratory: No respiratory distress. Painless inspiration. Breath sounds normal. No wheezes/rales/rhonchi noted. Chest nontender. No accessory muscle usage noted or decreased air movement noted. Abdomen: Soft, ileostomy stump appear paring with no tenderness, skin around it is unremarkable, bag is full of gas and fluid.. Bowel sounds normal in all 4 quadrants. No distention noted. No organomegaly noted. No visible injury noted. Back: No CVA tenderness. Full range of motion noted. Skin: Skin warm and dry. Normal skin color. Normal skin turgor. No rashes/lesions/lacerations noted. Extremities: No lower extremity edema. Extremities exhibit normal range of m otion. Extremities nontender. Neuro: Oriented X 3. Cranial nerve exam: II-XII are grossly intact No motor deficit. No sensory deficit. Reflexes normal. Course Course Course Narrative: 71-year-old male came in for crampy abdominal pain was not passing fecal material in the ileostomy, possibly patient had episode of bowel obstruction that was improved spontaneously while he is in the emergency department, the case was discussed with Dr. Esposito who is okay with discharge the patient with no concern of any further obstruction. Patient was instructed to follow up with Dr. Fam as an outpatient, return if worsening of abdominal pain, or ileostomy bag is not working. Medical Decision Making Differential Diagnosis Differential Diagnoses: The differential diagnosis associated with the presentation includes (Bowel obstruction, postsurgical complication, intra- abdominal bleed.) Admission/Observation Consideration of admission/observation: Escalation of care including admission/observation considered Consult Healthcare Provider Management of the patient was discussed with: Instructor Knitting (Dr. Esposito) Lab Data MDM Lab Attestation statement: I reviewed the patient's lab results. 07/18/22 14:57 07/18/22 14:57 Labs: Lab Results 07/18/22 07/18/22 Range/Units 14:57 14:57 WBC 14.0 H (4.8-10.8) X10*3/uL RBC 4.58 L (4.60-5.80) X10*6/uL Hgb 12.3 L (14.0-18.0) g/dl Hct 36.9 L (42.0-52.0) % MCV 80.6 (80.0-98.0) fL MCH 26.9 L (27.0-33.0) pg MCHC 33.3 (31.0-36.0) g/dl RDW 16.7 H (11.0-16.0) % Plt Count 118 L (160-400) X10*3/uL MPV 10.0 (9.4-12.4) fL Immature Gran % (Auto) 0.7 H (0.0-0.4) % Neut % (Auto) 86.2 H (45-73) % Lymph % (Auto) 6.9 L (20-40) % Hayes % (Auto) 5.9 (2-11) % Eos % (Auto) 0.0 (0-4) % Baso % (Auto) 0.3 (0-2) % Lymph # (Auto) 1.0 L (1.2-4.9) X10*3/uL Hayes # (Auto) 0.8 (0.1-1.2) X10*3/uL Eos # (Auto) 0.0 (0.0-0.4) X10*3/uL Baso # (Auto) 0.0 (0.0-0.2) X10*3/uL Abs Immat Gran (auto) 0.10 H (0.00-0.03) X10*3/uL Absolute Neuts (auto) 12.1 H (2.0-8.3) x10*3/uL Absolute Nucleated RBC 0.000 (0.0-0.012) X10*3/uL Nucleated RBC % (auto) 0.0 (0.0-0.2) /100WBC Sodium 137 (135-145) mmol/L Potassium 4.7 (3.3-5.1) mmol/L Chloride 102 (96-108) mmol/L Carbon Dioxide 20 L (22-29) mmol/L Anion Gap 20 (12-20) BUN 15 (9-16) mg/dL Creatinine 1.12 (0.5-1.4) mg/dL Estim Creat Clear Calc 52.1 Estimated GFR > 60 Random Glucose 225 H (60-115) mg/dL Calcium 9.1 (8.4-10.2) mg/dL Total Bilirubin 0.6 (0.0-1.0) mg/dL Direct Bilirubin 0.2 (0.0-0.5) mg/dL AST 17 (5-37) U/L ALT 21 (0-40) U/L Alkaline Phosphatase 124 H (39-117) U/L Total Protein 6.6 (6.5-8.0) g/dL Albumin 4.2 (3.5-5.0) g/dL Lipase 21 (8-78) U/L Independent Interpretation I performed an independent interpretation of an: CT Scan (Abdomen and pelvis:1. Postsurgical changes along the right ascending colon with patent lumen. 2. There is fecal residue seen in a loop of bowel left upper mid quadrant likely closed loop obstruction from adhesion, less likely twist. 3. Likely hepatic cyst. 4. No free air or free fluid.) Radiology Impression Discussion of test interpretation with radiology: I have reviewed the radiologist's reading. Discharge Plan Discharge Clinical Impression: Abdominal pain Patient Disposition: Home, Self-Care Instructions: Abdominal Pain (ED) Prescriptions: No Action cholecalciferol (vitamin D3) 25 mcg (1,000 unit) capsule 25 mcg PO DAILY atorvastatin 10 mg tablet 10 mg PO BEDTIME 90 Days Qty: 90 1RF (DME) FreeStyle Test Strip See Rx Instructions .Route Qty: 100 3RF Rx Instructions: As directed amlodipine 10 mg tablet 2.5 mg PO DAILY Qty: 30 0RF alcohol swabs Pads, Medicated 1 pad TOPICAL QIDACHS Qty: 100 12RF Rx Instructions: Use four times a day or as directed. (DME) BD Ultra Fine Floridalma Pen Needle 32 G x / See Rx Instructions .ROUTE .MEDSUPPLY Qty: 100 12RF Rx Instructions: Use as directed up to 4 times a day multivitamin Tablet 1 tab PO DAILY ondansetron 8 mg Tablet,Disintegrating 8 mg PO Q8H PRN (Reason: Nausea) Qty: 60 3RF dexamethasone 4 mg Tablet 4 mg PO BID Qty: 30 0RF Rx Instructions: for 2 days after chemo glipizide [Glucotrol XL] 5 mg Tablet Extended Release 24hr 5 mg PO DAILY Qty: 90 0RF pantoprazole 40 mg Tablet,Delayed Release (Dr/Ec) 40 mg PO DAILY cetirizine 10 mg Tablet 10 mg PO DAILY Januvia 100 mg tablet 50 mg PO DAILY 90 Days Qty: 90 1RF (DME) blood-glucose meter [FreeStyle Lite Meter] Kit Qty: 1 0RF Rx Instructions: As Directed insulin lispro [Humalog KwikPen Insulin] 100 unit/mL insulin pen 0 sliding scale dose SUBCUT QIDACHS Qty: 15 0RF Rx Instructions: Blood Sugar: <150 - 0 units 151-200 - 2 units 201-250 - 4 units 251-300 - 6 units 301-350 - 8 units >350 - 10 units (DME) pen needle, diabetic 32 gauge x 1/4 needle Qty: 100 0RF Rx Instructions: Use four times a day or as directed. (DME) lancets [FreeStyle Lancets] 28 gauge misc Qty: 100 0RF Rx Instructions: Test four times a day or as directed. (DME) FreeStyle Lite Strips Strip Qty: 100 12RF Rx Instructions: Test four times a day or as directed. Referrals: Bimal Lepe MD [Primary Care Provider] - Darion Fam MD [Physician] -
--- NOTE | 2022-07-18 14:42 | PC.NURSE ---
patient is a difficult stick- pt does have a port, spoke with Dr. Gilman who requested that we just do a straight stick vs start an iv or access a port at this time until CT results have come back. If the patient is needing port access Dr. Gilman was notified that we will need a chest xray to determine what type of port he has as there is no previous cxr on file. will ask a tech to attempt a straight stick with a butterfly per Dr. Mayorga request.
[2022-07-18 15:01] LABS: MANUAL DIFF FLAG NO
[2022-07-18 15:05] LABS: Basophils Percent Auto 0.3 % (0-2); Hematocrit 36.9 % (42.0-52.0); Hemoglobin 12.3 g/dl (14.0-18.0); Imm Gran Pct Auto 0.7 % (0.0-0.4); Lymphocytes Percent Auto 6.9 % (20-40); Mean Corpuscular HGB Conc 33.3 g/dl (31.0-36.0); Mean Corpuscular Hemoglobin 26.9 pg (27.0-33.0); Mean Corpuscular Volume 80.6 fL (80.0-98.0); Monocytes Absolute Auto 0.8 X10*3/uL (0.1-1.2); Monocytes Percent Auto 5.9 % (2-11); Neutrophils Absolute Auto 12.1 x10*3/uL (2.0-8.3); Neutrophils Percent Auto 86.2 % (45-73); Platelet Count 118 X10*3/uL (160-400); Red Blood Count 4.58 X10*6/uL (4.60-5.80); Red Cell Distribution Width 16.7 % (11.0-16.0)
[2022-07-18 15:25] LABS: Alanine Aminotransferase 21 U/L (0-40); Albumin Level 4.2 g/dL (3.5-5.0); Alkaline Phosphatase 124 U/L (39-117); Anion Gap 20 (12-20); Aspartate Amino Transferase 17 U/L (5-37); Bilirubin Direct 0.2 mg/dL (0.0-0.5); Bilirubin Total 0.6 mg/dL (0.0-1.0); Blood Urea Nitrogen 15 mg/dL (9-16); Calcium 9.1 mg/dL (8.4-10.2); Carbon Dioxide 20 mmol/L (22-29); Chloride 102 mmol/L (96-108); Creatinine Clr Calc Pharmacy 52.1; Estimated Glomerular Filt Rate > 60; Glucose Random 225 mg/dL (60-115); Lipase 21 U/L (8-78); Potassium 4.7 mmol/L (3.3-5.1); Sodium 137 mmol/L (135-145); Total Protein 6.6 g/dL (6.5-8.0)
[2022-07-18 15:47] VITALS: BP 152/83; PULSE 93; RESP 16; TEMP 36.8; O2SAT 97
== END 2022-07-18 16:14 | disposition home or self-care (01) ==
PROVIDERS: Emergency Provider Emergency Medicine; PCP Internal Medicine
DX: R11.10 Vomiting, unspecified (principal); R10.13 Epigastric pain; Z79.899 Other long term (current) drug therapy
CPT/HCPCS: 36415; 74176; 80048; 80076; 83690; 85025; 96360; 99284

== ENCOUNTER 2022-07-19 09:21 | Inpatient (IN) | payer OTHER, MEDICARE, SELFPAY ==
[2022-07-19] VITALS (14 sets, daily range): BP systolic 141–185; BP diastolic 79–90; PULSE 73–87; RESP 14–18; TEMP 36.1–36.9; O2SAT 94–100; BMI 22.8
--- NOTE | 2022-07-19 09:36 | ED_ITS ---
HPI - Abdominal Pain General Chief Complaint: Abdominal Pain Stated Complaint: Abdominal Pain Time Seen by Provider: 07/19/22 09:30 Source: patient and old records reviewed Mode of arrival: ambulatory Limitations: no limitations History of Present Illness HPI narrative: Patient is a 71yo male with PMH of alv-uebfoti-xywxvfirx type 2 diabetes, hypertension, and colon cancer s/p? colectomy with diverting ileostomy on 04/29/22 who presented to the ER yesterday for abdominal pain which was determined to be due to possible bowel obstruction which improved spontaneously. Consulted with surgery who had no concerns for further obstruction and patient was sent home. Patient returned today for continuing abdominal pain with no passage of fecal materials in his ileostomy. Patient endorsed cramping pain that comes and goes and associated nausea and vomiting. MD elicited complaint: abdominal pain Pertinent past history: other (colon cancer s/p colectomy with diverting ileostomy) Onset (ago): day(s) (2) Pain Consistency: intermittent Location: LUQ and LLQ Severity: similar to previous episodes Quality: cramping Radiation: none Migration to: no migration Context: recent surgery/procedure (colectomy 04/29/22) Associated symptoms: nausea and vomiting Treatments prior to arrival: other (odansetron) Related Data Home Medications Medication Instructions Recorded Confirmed cholecalciferol (vitamin D3) 25 25 mcg PO DAILY 03/10/20 06/11/22 mcg (1,000 unit) capsule multivitamin 1 tab PO DAILY 04/26/22 06/11/22 cetirizine 10 mg tablet 10 mg PO DAILY 05/28/22 06/11/22 pantoprazole 40 mg tablet,delayed 40 mg PO DAILY 05/28/22 06/11/22 release amlodipine 2.5 mg tablet 2.5 mg PO DAILY 07/19/22 famotidine 20 mg tablet 20 mg PO BID 07/19/22 Previous Rx's Medication Instructions Recorded atorvastatin 10 mg tablet 10 mg PO BEDTIME 90 days #90 tabs 02/03/22 blood sugar diagnostic (FreeStyle #100 ea 05/17/22 Test strips) blood-glucose meter (FreeStyle #1 ea 06/02/22 Lite Meter kit) insulin lispro 100 unit/mL 0 sliding scale dose subcut 06/02/22 subcutaneous pen (Humalog KwikPen QIDACHS #15 mL (U-100) Insulin) lancets 28 gauge (FreeStyle #100 ea 06/02/22 Lancets) pen needle, diabetic 32 gauge x #100 ea 06/02/22 1/ sitagliptin phosphate 100 mg 50 mg PO DAILY 90 days #90 tabs 06/02/22 tablet (Januvia) blood sugar diagnostic (FreeStyle #100 ea 06/10/22 Lite Strips) dexamethasone 4 mg tablet 4 mg PO BID #30 tabs 06/11/22 ondansetron 8 mg disintegrating 8 mg PO Q8H PRN Nausea #60 tabs 06/11/22 tablet BD Ultra Fine Floridalma Pen Needle 32 G #100 ea 06/29/22 x glipizide 5 mg tablet, extended 5 mg PO DAILY #90 tabs 07/07/22 release 24 hr (Glucotrol XL) Allergies Allergy/AdvReac Type Severity Reaction Status Date / Time No Known Allergies Allergy Verified 07/18/22 09:53 [No Known Allergies*] Review of Systems Review of Systems Cramping pain in left abdominal quadrants Yes all other systems are reviewed and are negative PMFSH Past Medical History Medical History Benign essential hypertension Coagulase negative Staphylococcus bacteremia Colon cancer Diabetes mellitus Overweight (BMI 25.0-29.9) Pure hypercholesterolemia Syncope Vitamin D deficiency Surgical History History of colonoscopy Status post colon resection (~04/29/22) Family History Family History Father Diabetes Hypertension Mother Diabetes Hypertension Mother Colon cancer Unknown Colon cancer Daughter Breast cancer Social History Social History Household Members: Spouse Housing: House Do you presently have visiting nurse or other home services: Yes (unsure) Alcohol intake: never Patient Tobacco Use Status: Never used Tobacco Smoked in Last 30 Days: No e-Cigarette/Vaping Use: Never Used Second Hand Smoke Exposure: No Use of substances other than those prescribed or required for medical reasons: No Advance Directives: Yes Advance Directives on File: Yes Advance Directives Date on File: 12/24/21 service: No Current occupational status: retired Cognitive needs: No Hearing needs: No Vision needs: Yes Physical Exam ED Vital Signs: Vital Signs - 24 hr 07/19/22 09:32 07/19/22 10:35 07/19/22 10:50 Temperature 98.4 F Pulse Rate 78 74 75 Respiratory Rate 18 18 16 Blood Pressure 146/80 H 154/83 H 160/84 H Pulse Oximetry 100 98 98 Oxygen Delivery Method Room Air Room Air Room Air BMI result Body Mass Index 22.8 Appearance: Alert. Oriented X3. No acute distress. HEENT: normal inspection Respiratory: No respiratory distress. Clear lungs throughout CV: RRR, no murmur Abdomen: soft abdomen with guarding and tenderness in LUQ and LLQ. +BS x4. Minimal mucous noted in illeostomy Skin: Skin warm and dry. Normal skin color. Normal skin turgor. No rashes. Neuro: Oriented X 3. No motor deficit. No sensory deficit. Medical Decision Making Medical Decision Making [facility] Narrative: Patient is a 71yo male with PMH of joi-eeizxwc-ryyglxfuk type 2 diabetes, hypertension, and colon cancer s/p? colectomy with diverting ileostomy on 04/29/22 who presented to the ER yesterday for abdominal pain which was determined to be due to possible bowel obstruction which improved spontaneously, presenting today for continued intermittent abdominal pain with nausea and vomiting. No Stool in ostomy bag. Given CT scan findings yesterday and patient's symptoms concern is for obstruction. Dr. Fam came to see the patient in the ER - will admit and take to the OR. Differential Diagnosis Differential Diagnoses: The differential diagnosis associated with the presentation includes Large bowel obstruction, Small bowel obstruction, Volvulus, Illeus, Splenic infarction, Nephrolithiasis Admission/Observation Consideration of admission/observation: Escalation of care including admission/observation considered patient to go to the OR Consult Healthcare Provider Management of the patient was discussed with: Child Development Assistant Dr. Fam came to evaluate the patient. He has going to take the patient to the OR given yesterday's CT scan findings Lab Data [facility] Lab Attestation statement: I reviewed the patient's lab results. improved leukocytosis compared to yesterday, hyperglycmia without anion gap 07/19/22 09:39 07/19/22 09:39 Labs: Lab Results 07/19/22 07/19/22 07/19/22 Range/Units 09:39 09:39 09:39 WBC 10.9 H (4.8-10.8) X10*3/uL RBC 4.29 L (4.60-5.80) X10*6/uL Hgb 11.5 L (14.0-18.0) g/dl Hct 34.3 L (42.0-52.0) % MCV 80.0 (80.0-98.0) fL MCH 26.8 L (27.0-33.0) pg MCHC 33.5 (31.0-36.0) g/dl RDW 16.6 H (11.0-16.0) % Plt Count 118 L (160-400) X10*3/uL MPV 9.7 (9.4-12.4) fL Immature Gran % (Auto) 0.5 H (0.0-0.4) % Neut % (Auto) 83.5 H (45-73) % Lymph % (Auto) 7.2 L (20-40) % Worth % (Auto) 8.4 (2-11) % Eos % (Auto) 0.2 (0-4) % Baso % (Auto) 0.2 (0-2) % Lymph # (Auto) 0.8 L (1.2-4.9) X10*3/uL Worth # (Auto) 0.9 (0.1-1.2) X10*3/uL Eos # (Auto) 0.0 (0.0-0.4) X10*3/uL Baso # (Auto) 0.0 (0.0-0.2) X10*3/uL Abs Immat Gran (auto) 0.05 H (0.00-0.03) X10*3/uL Absolute Neuts (auto) 9.1 H (2.0-8.3) x10*3/uL Absolute Nucleated RBC 0.000 (0.0-0.012) X10*3/uL Nucleated RBC % (auto) 0.0 (0.0-0.2) /100WBC Sodium 136 (135-145) mmol/L Potassium 4.3 (3.3-5.1) mmol/L Chloride 98 (96-108) mmol/L Carbon Dioxide 26 (22-29) mmol/L Anion Gap 16 (12-20) BUN 15 (9-16) mg/dL Creatinine 1.17 (0.5-1.4) mg/dL Estim Creat Clear Calc 49.8 Estimated GFR > 60 Random Glucose 266 H (60-115) mg/dL Calcium 9.0 (8.4-10.2) mg/dL Magnesium 1.4 L* (1.6-2.6) mg/dL Total Bilirubin 0.9 (0.0-1.0) mg/dL Direct Bilirubin 0.3 (0.0-0.5) mg/dL AST 15 (5-37) U/L ALT 19 (0-40) U/L Alkaline Phosphatase 120 H (39-117) U/L Total Protein 6.3 L (6.5-8.0) g/dL Albumin 4.0 (3.5-5.0) g/dL Lipase 18 (8-78) U/L COVID-19 ([facility]) Negative (Negative) COVID-19 Clin Com See Note Radiology Impression Discussion of test interpretation with radiology: I have reviewed the radiologist's reading. Radiologist Impression: 07/18 - CT/CT abdomen pelvis wo IV con IMPRESSION: 1.? Postsurgical changes along the right ascending colon with patent lumen. 2.? There is fecal residue seen in a loop of bowel left upper mid quadrant likely closed loop obstruction from adhesion, less likely twist. 3.? Likely hepatic cyst. 4.? No free air or free fluid. Independent Historian Clinical information obtained from an independent historian. History obtained from or confirmed by: Spouse and Other Dr. Terrell, oncologist External Record Review External record reviewed: Inpatient record, Office record, Outpatient record, Prior outpatient labs and Prior outpatient radiology Tests considered The following testing was considered but not selected: CT scan, KUB. Awaiting recommendation from surgery Prescription Management I considered prescription management with: Pain Medication Chronic Conditions Patient?s care impacted by: Diabetes, Hypertension and Cancer Medications Administered Generic Name Dose Route Start Last Admin Trade Name Freq PRN Reason Stop Dose Admin Magnesium Sulfate 2 gm in 50 mls @ 25 mls/hr 07/19/22 10:19 07/19/22 10:33 Magnesium Sulfate/H2o IV 07/19/22 12:18 25 mls/hr ONCE ONE Administration Discontinued Medications Generic Name Dose Route Start Last Admin Trade Name Freq PRN Reason Stop Dose Admin Sodium Chloride 1,000 mls @ 999 mls/hr 07/19/22 10:00 07/19/22 10:57 Ns IVCONT 07/19/22 11:00 Infused .Q1H1M [facility] Infusion Discharge Plan Discharge Clinical Impression: Bowel obstruction Patient Disposition: Admitted As Inpatient
[2022-07-19 09:50] LABS: MANUAL DIFF FLAG NO
[2022-07-19 09:54] LABS: Basophils Percent Auto 0.2 % (0-2); Eosinophils Percent Auto 0.2 % (0-4); Hematocrit 34.3 % (42.0-52.0); Hemoglobin 11.5 g/dl (14.0-18.0); Imm Gran Abs Auto 0.05 X10*3/uL (0.00-0.03); Imm Gran Pct Auto 0.5 % (0.0-0.4); Lymphocytes Absolute Auto 0.8 X10*3/uL (1.2-4.9); Lymphocytes Percent Auto 7.2 % (20-40); Mean Corpuscular HGB Conc 33.5 g/dl (31.0-36.0); Mean Corpuscular Hemoglobin 26.8 pg (27.0-33.0); Mean Platelet Volume 9.7 fL (9.4-12.4); Monocytes Absolute Auto 0.9 X10*3/uL (0.1-1.2); Monocytes Percent Auto 8.4 % (2-11); Neutrophils Absolute Auto 9.1 x10*3/uL (2.0-8.3); Neutrophils Percent Auto 83.5 % (45-73); Platelet Count 118 X10*3/uL (160-400); Red Blood Count 4.29 X10*6/uL (4.60-5.80); Red Cell Distribution Width 16.6 % (11.0-16.0); White Blood Count 10.9 X10*3/uL (4.8-10.8)
[2022-07-19] MEDS: 0.9 % Sodium Chloride 1,000 ML 999 ML IVCONT (09:55)
[2022-07-19 10:05] LABS: COVID-19 Test Negative (Negative); IDNOW Serial# BCCEAD1C
[2022-07-19 10:19] LABS: Alanine Aminotransferase 19 U/L (0-40); Alkaline Phosphatase 120 U/L (39-117); Anion Gap 16 (12-20); Aspartate Amino Transferase 15 U/L (5-37); Bilirubin Direct 0.3 mg/dL (0.0-0.5); Bilirubin Total 0.9 mg/dL (0.0-1.0); Blood Urea Nitrogen 15 mg/dL (9-16); Carbon Dioxide 26 mmol/L (22-29); Chloride 98 mmol/L (96-108); Creatinine Clr Calc Pharmacy 49.8; Estimated Glomerular Filt Rate > 60; Glucose Random 266 mg/dL (60-115); Lipase 18 U/L (8-78); Magnesium 1.4 mg/dL (1.6-2.6); Potassium 4.3 mmol/L (3.3-5.1); Sodium 136 mmol/L (135-145); Total Protein 6.3 g/dL (6.5-8.0)
[2022-07-19] MEDS: Magnesium Sulfate/H2O 2 GM/50 ML PIGGYBACK IV (10:33)
--- NOTE | 2022-07-19 11:28 | PM.HPGS ---
History of Present Illness History of Present Illness Date of Service: 07/26/22 Chief complaint: Closed Loop Small Bowel Obstruction Narrative: Evgeny Ag is a 71 year old male who was sent to the ER this morning because of abdominal pain. He had undergone urgent transverse colon resection with a diverting loop ileostomy for obstruction last April 29, 2022. 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 He has been undergoing adjuvant chemotherapy. He had been doing very well and says that he has had no problems with stoma function as well as with oral intake However he says that he had sudden abdominal pain 2 days ago. He also had multiple episodes of vomiting. He went to the emergency room yesterday. He had a CAT scan showing what appeared to be a small-bowel obstruction with question of closed loop. At that time, he has stoma had and he says that his pain improved so he was discharged from the ER. However, he continued to have vomiting overnight at home along with episodes of pain. His stoma has had no output since yesterday. Review of Systems Constitutional: Constitutional: Denies chills and Denies fever(s) Cardiovascular: Cardiovascular: Denies chest pain, Denies dyspnea and Denies dyspnea on exertion Respiratory: Respiratory: Denies cough, Denies dyspnea and Denies dyspnea on exertion Gastrointestinal: Gastrointestinal: Denies hematochezia and Denies change in bowel habits Genitourinary: Genitourinary: Denies hematuria and Denies difficulty urinating Musculoskeletal: Musculoskeletal: Denies back pain and Denies limited range of motion Neurologic: Denies focal weakness and Denies convulsions Psychiatric: Psychiatric: Denies depression and Denies mood swings [facility] Past Medical History Medical History (Updated 07/25/22 @ 17:00 by Bimal Lepe MD) Benign essential hypertension Coagulase negative Staphylococcus bacteremia Colon cancer Diabetes mellitus Overweight (BMI 25.0-29.9) Pure hypercholesterolemia Small bowel obstruction Syncope Vitamin D deficiency Family History Family History Father Diabetes Hypertension Mother Diabetes Hypertension Mother Colon cancer Unknown Colon cancer Daughter Breast cancer Surgical History Surgical History History of colonoscopy Status post colon resection (~04/29/22) Social History Social History Household Members: Unknown / Unable to assess Housing: House Do you presently have visiting nurse or other home services: Yes (unsure) Unable to assess alcohol history related to: Unknown Alcohol intake: never Patient Tobacco Use Status: Never used Tobacco e-Cigarette/Vaping Use: Never Used Second Hand Smoke Exposure: No Advance Directives Date on File: 12/24/21 service: No Current occupational status: retired Cognitive needs: No Hearing needs: No Vision needs: Yes Meds Allergies Allergy/AdvReac Type Severity Reaction Status Date / Time No Known Allergies Allergy Verified 07/25/22 16:37 [No Known Allergies*] Active Medications: Current Medications Magnesium Sulfate (Magnesium Sulfate/H2o) 2 gm in 50 mls @ 25 mls/hr IV ONCE ONE Stop: 07/19/22 12:18 Last Admin: 07/19/22 10:33 Dose: 25 mls/hr Pharmacy Consult (Consult Rx Perform Med Rec) 1 each MISCELLANE ONCE PRN PRN Reason: Consult order Sodium Chloride (0.9 % Sodium Chloride Flush 3 Ml Syringe) 3 ml IVFLUSH [facility] Medications Medication Instructions Recorded Confirmed Last Taken Type cholecalciferol (vitamin D3) 25 25 mcg PO DAILY 03/10/20 07/25/22 04/26/22 History mcg (1,000 unit) capsule multivitamin 1 tab PO DAILY 04/26/22 07/25/22 07/19/22 History cetirizine 10 mg tablet 10 mg PO DAILY 05/28/22 07/25/22 Unknown History pantoprazole 40 mg tablet,delayed 40 mg PO DAILY 05/28/22 07/25/22 07/19/22 History release lisinopril 20 mg tablet 20 mg PO DAILY 07/19/22 07/25/22 07/19/22 History Physical Exam Vital Signs: Vital Signs: Last Vital Signs Temp 98.4 F 07/19/22 09:32 Pulse 75 07/19/22 10:50 Resp 16 07/19/22 10:50 BP 160/84 H 07/19/22 10:50 Pulse Ox 98 07/19/22 10:50 O2 Del Method Room Air 07/19/22 10:50 BMI result Body Mass Index 22.8 Const: General: comfortable and no acute distress Orientation/consciousness: patient oriented x3 Neck: Neck: Yes no lymphadenopathy Resp: Auscultation: clear to auscultation bilaterally Cardio: Rhythm: regular rhythm GI: Palpation (GI): Soft to palpation, nontender and no guarding Neuro: General: patient oriented x3 Results Results Labs: Short CBC 07/19/22 Range/Units 09:39 WBC 10.9 H (4.8-10.8) X10*3/uL Hgb 11.5 L (14.0-18.0) g/dl Hct 34.3 L (42.0-52.0) % Plt Count 118 L (160-400) X10*3/uL BMP 07/19/22 09:39 Sodium 136 Potassium 4.3 Chloride 98 Carbon Dioxide 26 BUN 15 Creatinine 1.17 Calcium 9.0 Liver Function 07/19/22 Range/Units 09:39 Total Bilirubin 0.9 (0.0-1.0) mg/dL Direct Bilirubin 0.3 (0.0-0.5) mg/dL AST 15 (5-37) U/L ALT 19 (0-40) U/L Alkaline Phosphatase 120 H (39-117) U/L Albumin 4.0 (3.5-5.0) g/dL Assessment and Plan (1) Small bowel obstruction: Status: Acute I have reviewed his CAT scan with the radiologist. He appears to have a closed loop small-bowel obstruction. This is likely secondary to adhesions from his colon resection. He still has had no output from his ileostomy since yesterday. I therefore explained to him that it will be best to proceed with laparotomy in view of the likely closed loop nature of the obstruction. This may involve possible small bowel resection. I reviewed the technique of this procedure. I explained the risks including but not limited to bleeding, infections, bowel injury, recurrence, wound complications, inherent risks of anesthesia, as well as the benefits and alternatives. He understands and wants to proceed. We will put him on the add on schedule for today. Because of the suggestion of a closed-loop obstruction, it may be best to proceed with surgery as soon as possible because of the risks of ongoing ischemia from any twisting of the involved bowel. His was with him during the discussion. Time Spent With Patient Time: Total time managing care of this patient today ____ minutes. Quality Stroke Does the patient have a stroke diagnosis?: No VTE Prior VTE?: No VTE Risk Level:: Medical - moderate - high VTE Device Contraindication: N/A - Device Ordered VTE Drug Contraindication: N/A - Med Ordered Procedures Date of Service Date of Service: 07/19/22
--- NOTE | 2022-07-19 11:54 | PC.NURSE ---
Report given to OR. Patient remains alert and oriented x3. VSS
--- NOTE | 2022-07-19 12:06 | PHA.MEDREC ---
Pharmacy Consult ? Medication Reconciliation Pharmacy has completed the medication reconciliation. Pt unsure of home medications, called his Arin who went over home medications. She noted that he no longer takes amlodipine but takes lisinopril instead. She also noted he got 8 units of insulin this morning.
--- NOTE | 2022-07-19 12:28 | HO.ANESPROP2 ---
HPI - Anesthesia Eval Consult details Narrative: 71 M for Ex Lap s/p colon resection undergoing chemo Magnesium replenished by ED Case discussed with the surgeon , as per him this is emergent and needs to proceed PMFSH Active Problems Active Problems: All Active Problems (Updated 07/19/22 @ 11:28 by Darion Fam MD) Small bowel obstruction (Acute) Bowel obstruction (Acute) Status post colon resection (Acute ~04/29/22) Diabetes (Acute) Coagulase negative Staphylococcus bacteremia (Acute) Metabolic acidosis (Acute) Acute kidney injury (Acute) Acute hyperkalemia (Acute) Colon cancer (Acute) Stricture of transverse colon (Acute) Right cervical radiculopathy (Acute) Screening for prostate cancer (Acute) Benign essential hypertension (Acute) Overweight (BMI 25.0-29.9) (Acute) Encounter for Medicare annual wellness exam (Acute) Vitamin D deficiency (Acute) Diabetes mellitus (Acute) Pure hypercholesterolemia (Acute) Past Medical History Medical History Benign essential hypertension Coagulase negative Staphylococcus bacteremia Colon cancer Diabetes mellitus Overweight (BMI 25.0-29.9) Pure hypercholesterolemia Small bowel obstruction Syncope Vitamin D deficiency Functional capacity: independent ambulation Family History Family History Father Diabetes Hypertension Mother Diabetes Hypertension Mother Colon cancer Unknown Colon cancer Daughter Breast cancer Family history of problems with anesthesia: No Surgical History Surgical History History of colonoscopy Status post colon resection (~04/29/22) History of Problems with Anesthesia: No Social History Social History Household Members: Unknown / Unable to assess Housing: House Do you presently have visiting nurse or other home services: Yes (unsure) Unable to assess alcohol history related to: Unknown Alcohol intake: never Patient Tobacco Use Status: Never used Tobacco Smoked in Last 30 Days: No e-Cigarette/Vaping Use: Never Used Second Hand Smoke Exposure: No Use of substances other than those prescribed or required for medical reasons: Unknown Are you DNR?: No Advance Directives: Yes Advance Directives Information Provided: No Advance Directives on File: Yes Advance Directives Date on File: 12/24/21 Do you have thoughts of harming others: None Do you have a plan to hurt others: No Plan Recently lost weight without trying: No How much weight loss: Not applicable Eating poorly because of decreased appetite: Yes Nutrition screen score: 1 Nutrition Risks: No Nutritional Risk Poor oral hygiene: No service: No Current occupational status: retired Cognitive needs: No Hearing needs: No Vision needs: Yes Meds Allergies Allergy/AdvReac Type Severity Reaction Status Date / Time No Known Allergies Allergy Verified 07/18/22 09:53 [No Known Allergies*] Active Medications: Current Medications Pharmacy Consult (Consult Rx Perform Med Rec) 1 each MISCELLANE ONCE PRN PRN Reason: Consult order Sodium Chloride (0.9 % Sodium Chloride Flush 3 Ml Syringe) 3 ml IVFLUSH QSHIFT [facility] Home Medications Medication Instructions Recorded Confirmed Last Taken Type cholecalciferol (vitamin D3) 25 25 mcg PO DAILY 03/10/20 07/19/22 04/26/22 History mcg (1,000 unit) capsule multivitamin 1 tab PO DAILY 04/26/22 07/19/22 07/19/22 History cetirizine 10 mg tablet 10 mg PO DAILY 05/28/22 07/19/22 Unknown History pantoprazole 40 mg tablet,delayed 40 mg PO DAILY 05/28/22 07/19/22 07/19/22 History release lisinopril 20 mg tablet 20 mg PO DAILY 07/19/22 07/19/22 07/19/22 History Exam Exam Date and Time: July 19, 2022 1228 Height,Weight and Vital Signs: Height 5 ft 4 in Weight 60.5 kg Last Vital Signs Temp 98.0 F 07/19/22 12:17 Pulse 83 07/19/22 12:17 Resp 16 07/19/22 12:17 BP 164/81 H 07/19/22 12:17 Pulse Ox 98 07/19/22 12:17 O2 Del Method Room Air 07/19/22 12:17 Pertinent Lab Results Pertinent Lab Results: Laboratory Tests 07/19/22 07/19/22 07/19/22 09:39 09:39 09:39 WBC 10.9 H RBC 4.29 L Hgb 11.5 L Hct 34.3 L MCV 80.0 MCH 26.8 L MCHC 33.5 RDW 16.6 H Plt Count 118 L MPV 9.7 Immature Gran % (Auto) 0.5 H Neut % (Auto) 83.5 H Lymph % (Auto) 7.2 L [place] % (Auto) 8.4 Eos % (Auto) 0.2 Baso % (Auto) 0.2 Lymph # (Auto) 0.8 L [place] # (Auto) 0.9 Eos # (Auto) 0.0 Baso # (Auto) 0.0 Abs Immat Gran (auto) 0.05 H Absolute Neuts (auto) 9.1 H Absolute Nucleated RBC 0.000 Nucleated RBC % (auto) 0.0 Sodium 136 Potassium 4.3 Chloride 98 Carbon Dioxide 26 Anion Gap 16 BUN 15 Creatinine 1.17 Estim Creat Clear Calc 49.8 Estimated GFR > 60 Random Glucose 266 H Calcium 9.0 Magnesium 1.4 L* Total Bilirubin 0.9 Direct Bilirubin 0.3 AST 15 ALT 19 Alkaline Phosphatase 120 H Total Protein 6.3 L Albumin 4.0 Lipase 18 COVID-19 ([facility]) Negative COVID-19 Clin Com See Note Narrative Narrative: Date of Service: 05/28/22 Procedure(s): ECG 12 lead EKG Vent. Rate : 082 BPM ? ? Atrial Rate : 082 BPM ?? P-R Int : 184 ms? QRS Dur : 082 ms ? ? QT Int : 318 ms ? ? ? P-R-T Axes : 051 -05 030 degrees ?? QTc Int : 371 ms ? Normal sinus rhythm Low voltage QRS Borderline ECG When compared to the previous EKG of Premature ventricular complexes not present Airway Mallampati Class: IV TM Dist: >3cm Neck ROM: Full Loose/Missing/Broken Teeth: Yes Heart: S1,S2 Lungs: b/l breath sounds Assessment and Plan Assessment Anesthesia Assessment: Anesthesia Plan Discussed and Chart Reviewed Final Anesthetic Review Family History of Problems with Anesthesia: No History of Problems with Anesthesia: No NPO: No ASA Class: III and Emergency Final Preanesthetic Review: Meds/Allgs Chart Reviewed, Consent Obtained/Reviewed and Anes Risks/Benef Reviewed Patient Risk: High Procedure Risk: Intermediate Anesthetic Plan Anesthetic Plan: GA and Agree w/ Assess. and Plan Disposition: Inp. Admit - Standard Bed
[2022-07-19 12:30] LABS: Glucose, Whole Blood 193 mg/dL (60-115)
--- NOTE | 2022-07-19 14:28 | P.OP_ITS ---
Operative Note Operative Note Date of Service: 07/19/22 Narrative: Preop Diagnosis: closed loop small-bowel obstruction Postop diagnosis: As above, with extensive adhesions Procedure: Laparotomy, extensive lysis of adhesions Surgeon: Darion Fam MD The patient is a 71-year-old male, with a 2 day history of abdominal pain, and vomiting. He had a CAT scan in the ER yesterday showing small-bowel obstruction with what appeared to be a closed loop. 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 He had not improved since yesterday and has had no output from his stoma for almost 24 hours. In view of the suggestion of closed loop, persistent pain and vomiting came explained him that it would be best to proceed with laparotomy. I reviewed with her the technique of this procedure. He understood the risks, b enefits, and alternatives. He had given consent. His Arin was involved with discussion . He was brought to the operating room. He was placed supine. A Collins catheter was inserted. He was under general anesthesia via endotracheal tube.An NG tube was also inserted. The abdomen was prepped and draped in the usual sterile fashion. A surgical time-out was done. The patient received cefazolin 2 g IV preoperatively . The ileostomy was sealed with Tegaderm. I made an incision on the skin of the midline along the same problem incision from April using blade 10. This was carried down with electrocautery through the full-thickness of the skin subcutaneous fat exposed the fascia. There was note of a lot of fibrotic changes with poor planes in the subcutaneous layer as well as the fascia. I therefore had to be a mm by mm dissection of the fascia to enter the peritoneal cavity. I applied graspers on this open fascia to directly visualize the peritoneal cavity. I was able to see that reason area on the fascia free of adhesions so I went leak and slowly open this with electrocautery, periodically looking at the fascial edges to make sure that there were no bowel loops or any adhesions. I retracted the GINA with Francisco clamps. By doing so was able to visualize markedly adherent small bowel loops mostly on the left side of the incision. I therefore had to carefully this up using fine dissection with the Metzenbaum sirs. This long loop was eventually freed up and this allowed us to open up the entire she had to optimize the length of the skin incision. There was still a lot of small-bowel loops the inferior aspect which wet to free up from the peritoneum with gentle sharp dissection using the Metzenbaum scissors. This part of the procedure took and extended period of time. Eventually we were able to free up the entire abdominal wall from adherent bowel loops. This allowed me to see bowel loops and on the left side was note of what appeared to be markedly distended small bowel loops. This appeared to be long. there were extensive interloop adhesions as well which we had to carefully lysed with Metzenbaum scissors until was able to pull up this markedly distended small bowel loops. There was note of a thick adherent bands during this superiorly causing this small-bowel obstruction, with adhesions surrounding this long loop. We had to do a lot of careful dissection with Metzenbaum scissors to divide all these adhesions. There were multiple of these causing distension of the involved small bowel loops. We proceeded to carefully pull up the bowel loops towards distally, periodically freeing up these bowel loops of adhesions. Eventually, as able to visualize nondistended small bowel loops leading all the way to the loop ileostomy. I was able to clearly visualize this loop ileostomy in see both its afferent and efferent limbs. I therefore proceeded to trace this entire length of small bowel starting from this ileostomy all the way to the end of Treitz. There was note of diffusely distended small bowel loops but no evidence of any residual obstruction after extensive lysis. I also proceeded to seated lead read the small bowel starting from the ligament of Treitz all the way to the loop ileostomy. Again, there was no other pathology seen. There was note of some evidence of transition point but these segments were patent. It appeared that all the bowel loops were free of adhesions. Once this was confirmed, I proceeded to do therefore irrigate. The recurrent fluid with suction out. There was no evidence of any injury nor any spillage. I closed the fascia with a running Maxon 1 stitch with wide bites due to thepresence of fibrotic tissue. The skin was closed with skin sindy. The area was infiltrated with Marcaine 0.5% for postop GINA. The procedure was completed. A new stoma appliance was also positioned. The patient tolerated procedure well. There were there were no immediate complications. Initial and final counts of sponges and instruments were correct. Estimated blood loss was less than 20 cc. The patient was extubated without difficulty and transferred to the recovery room with stable vital signs.
[2022-07-19] MEDS: fentaNYL citrate/PF 100 MCG/2 ML VIAL 25 MCG IVPUSH (15:09)
[2022-07-19] MEDS: Acetaminophen 1,000 MG/100 ML PIGGYBACK 400 MG IV ×2 (16:15→21:05)
[2022-07-19] MEDS: 0.9 % Sodium Chloride Flush 3 ML SYRINGE IVFLUSH (16:15)
[2022-07-19] MEDS: Lactated Ringers 1,000 ML 100 ML IVCONT (16:15)
[2022-07-19 16:49] LABS: Glucose, Whole Blood 241 mg/dL (60-115)
--- NOTE | 2022-07-19 17:16 | P.CONHOSP_ITS ---
History of Present Illness Data of Consult Service Date: 07/19/22 Requesting physician: Darion Fam Primary Care Provider: Bimal Lepe MD HPI Reason for consult: diabetes 71-year-old male admitted by general surgery for small-bowel obstruction. He is status post laparotomy with extensive lysis of adhesions. He presented to the ER with 2 days of abdominal pain and vomiting. He has a history of laparotomy and transverse colon resection with ostomy due to obstructive cancer in April of 2022.. Surgery was unremarkable. His vital signs are stable and in fact blood pressure is on the higher side. Labs within acceptable limits except for magnesium 1.4 which was repleted. Review of Systems Review of Systems: Denies any recent fever chills or decrease in appetite respiratory denies any shortness of breath coverage production cardiovascular denies chest pain gastrointestinal denies any dysphagia abdominal pain nausea vomiting or diarrhea genitourinary denies any dysuria frequency or hematuria musculoskeletal denies any joint pain or swelling neuropsych denies any weakness or seizures all other systems reviewed are negative [facility] Medical History Benign essential hypertension Coagulase negative Staphylococcus bacteremia Colon cancer Diabetes mellitus Overweight (BMI 25.0-29.9) Pure hypercholesterolemia Small bowel obstruction Syncope Vitamin D deficiency Functional capacity: independent ambulation Family History Father Diabetes Hypertension Mother Diabetes Hypertension Mother Colon cancer Unknown Colon cancer Daughter Breast cancer Surgical History History of colonoscopy Status post colon resection (~04/29/22) Social History Household Members: Unknown / Unable to assess Housing: House Do you presently have visiting nurse or other home services: Yes (unsure) Unable to assess alcohol history related to: Unknown Alcohol intake: never Patient Tobacco Use Status: Never used Tobacco Smoked in Last 30 Days: No e-Cigarette/Vaping Use: Never Used Second Hand Smoke Exposure: No Use of substances other than those prescribed or required for medical reasons: Unknown Are you DNR?: No Advance Directives: Yes Advance Directives Information Provided: No Advance Directives on File: Yes Advance Directives Date on File: 12/24/21 Do you have thoughts of harming others: None Do you have a plan to hurt others: No Plan Recently lost weight without trying: No How much weight loss: Not applicable Eating poorly because of decreased appetite: Yes Nutrition screen score: 1 Nutrition Risks: No Nutritional Risk Poor oral hygiene: No service: No Current occupational status: retired Cognitive needs: No Hearing needs: No Vision needs: Yes Meds Allergies Allergy/AdvReac Type Severity Reaction Status Date / Time No Known Allergies Allergy Verified 07/18/22 09:53 [No Known Allergies*] Active Medications: Current Medications Famotidine (Famotidine/Pf 20 Mg/2 Ml Vial) 20 mg IVPUSH DAILY [facility] Glucose (Glucose Gel 15 Gm Gel..Gram.) 15 gm PO Q15M PRN; Protocol PRN Reason: per Hypoglycemia Standing Ord. Acetaminophen (Ofirmev) 1,000 mg in 100 mls @ 400 mls/hr IV Q6H [facility] Last Infusion: 07/19/22 16:54 Dose: Infused Dextrose (D10) 250 mls @ 750 mls/hr IV Q15M PRN; Protocol PRN Reason: per Hypoglycemia Standing Ord. Lactated Ringer's (Lr) 1,000 mls @ 100 mls/hr IVCONT .Q10H [facility] Last Admin: 07/19/22 16:15 Dose: 100 mls/hr Insulin Human Lispro (Insulin Lispro 100 Unit/Ml 3 Ml Vial) 0 unit SUBCUT QIDACHS [facility]; Protocol Last Admin: 07/19/22 16:54 Dose: Not Given Lisinopril (Lisinopril 20 Mg Tablet) 20 mg PO DAILY [facility]; Protocol Morphine Sulfate (Morphine Sulfate 4 Mg/Ml Cartridge) 4 mg IVPUSH Q3H PRN; Protocol PRN Reason: Pain, Severe (Pain Scale 7-10) Ondansetron HCl (Ondansetron Hcl 4 Mg/2 Ml Vial) 4 mg IVPUSH Q8H PRN PRN Reason: Nausea and Vomiting Pharmacy Consult (Consult Rx Perform Med Rec) 1 each MISCELLANE ONCE PRN PRN Reason: Consult order Sodium Chloride (0.9 % Sodium Chloride Flush 3 Ml Syringe) 3 ml IVFLUSH QSHIFT [facility] Last Admin: 07/19/22 16:15 Dose: 3 ml Home Medications Medication Instructions Recorded Confirmed Last Taken Type cholecalciferol (vitamin D3) 25 25 mcg PO DAILY 03/10/20 07/19/2223 History mcg (1,000 unit) capsule multivitamin 1 tab PO DAILY 04/26/22 07/19/22 07/19/22 History cetirizine 10 mg tablet 10 mg PO DAILY 05/28/22 07/19/22 Unknown History pantoprazole 40 mg tablet,delayed 40 mg PO DAILY 05/28/22 07/19/22 07/19/22 History release lisinopril 20 mg tablet 20 mg PO DAILY 07/19/22 07/19/22 07/19/22 History Physical Exam Vital Signs and Narrative: Vital Signs: Last Vital Signs Temp 97.0 F 07/19/22 15:47 Pulse 87 07/19/22 15:47 Resp 16 07/19/22 15:47 BP 162/90 H 07/19/22 15:47 Pulse Ox 100 07/19/22 15:47 O2 Del Method Nasal Cannula 07/19/22 15:47 O2 Flow Rate 2 07/19/22 15:47 BMI result Body Mass Index 22.8 Appearing in no acute distress head is normocephalic atraumatic eyes pupils are PERRLA sclera is anicteric mouth throat mucous membranes are intact and moist neck is supple no lymphadenopathy, no JVD noted lung sounds are clear to auscultation heart regular rate rhythm, clear S1, S2 positive bowel sounds, abdomen is soft, nontender neuro patient is alert x3, no focal deficits Results Labs 07/19/22 09:39 07/19/22 09:39 Labs: Laboratory Results - last 24 hr 07/19/22 07/19/22 07/19/22 09:39 09:39 09:39 MCV 80.0 MCH 26.8 L MCHC 33.5 RDW 16.6 H Plt Count 118 L MPV 9.7 Immature Gran % (Auto) 0.5 H Neut % (Auto) 83.5 H Lymph % (Auto) 7.2 L [place] % (Auto) 8.4 Eos % (Auto) 0.2 Baso % (Auto) 0.2 Lymph # (Auto) 0.8 L [place] # (Auto) 0.9 Eos # (Auto) 0.0 Baso # (Auto) 0.0 Abs Immat Gran (auto) 0.05 H Absolute Neuts (auto) 9.1 H Absolute Nucleated RBC 0.000 Nucleated RBC % (auto) 0.0 Anion Gap 16 Estim Creat Clear Calc 49.8 Estimated GFR > 60 POC Glucose Random Glucose 266 H Calcium 9.0 Magnesium 1.4 L* Total Bilirubin 0.9 Direct Bilirubin 0.3 AST 15 ALT 19 Alkaline Phosphatase 120 H Total Protein 6.3 L Albumin 4.0 Lipase 18 COVID-19 ([facility]) Negative COVID-19 Clin Com See Note Blood Type Antibody Screen 07/19/22 07/19/22 07/19/22 12:27 12:52 16:46 MCV MCH MCHC RDW Plt Count MPV Immature Gran % (Auto) Neut % (Auto) Lymph % (Auto) [place] % (Auto) Eos % (Auto) Baso % (Auto) Lymph # (Auto) [place] # (Auto) Eos # (Auto) Baso # (Auto) Abs Immat Gran (auto) Absolute Neuts (auto) Absolute Nucleated RBC Nucleated RBC % (auto) Anion Gap Estim Creat Clear Calc Estimated GFR POC Glucose 193 H 241 H Random Glucose Calcium Magnesium Total Bilirubin Direct Bilirubin AST ALT Alkaline Phosphatase Total Protein Albumin Lipase COVID-19 ([facility]) COVID-19 Clin Com Blood Type A Positive Antibody Screen NEGATIVE Assessment and Plan (1) Small bowel obstruction: Status: Acute Plan 71-year-old man admitted by general surgery and is status post laparotomy and lysis of adhesions Laparotomy Management as per surgical team Pain management Ppi Hypomagnesemia Repleted Diabetes mellitus type 2 Sliding scale, ADA diet was started by admitting team Hypertension Continue home medications as blood pressure is on the higher side Hyperlipidemia Continue statin at discharge DVT prophylaxis as per surgical team Full code Attending Dr. Chiu Time Spent With Patient Time: Total time managing care of this patient today ____ minutes.
--- NOTE | 2022-07-19 18:33 | PM.EVENT ---
Event Note Date of Service: 07/19/22 Event Note: Seen postop underwent extensive lysis of adhesions earlier appears to have good pain control NG tube in place stoma without output yet abdomen soft Good urine output pain management await return of GI function updated Time Spent With Patient Time: Total time managing care of this patient today ____ minutes.
[2022-07-19 20:10] LABS: Glucose, Whole Blood 251 mg/dL (60-115)
[2022-07-19] MEDS: Insulin Lispro 100 UNIT/ML 3 ML VIAL SUBCUT (21:06)
[2022-07-20] MEDS: Lactated Ringers 1,000 ML 100 ML IVCONT ×2 (01:34→10:42)
[2022-07-20 03:40] VITALS: BP 134/72; PULSE 74; RESP 16; TEMP 36.4; O2SAT 100
[2022-07-20] MEDS: Acetaminophen 1,000 MG/100 ML PIGGYBACK 400 MG IV ×4 (04:24→23:05)
[2022-07-20 06:40] LABS: MANUAL DIFF FLAG NO
[2022-07-20 06:44] LABS: Basophils Percent Auto 0.3 % (0-2); Eosinophils Percent Auto 0.1 % (0-4); Hematocrit 31.9 % (42.0-52.0); Hemoglobin 10.5 g/dl (14.0-18.0); Imm Gran Abs Auto 0.05 X10*3/uL (0.00-0.03); Imm Gran Pct Auto 0.5 % (0.0-0.4); Lymphocytes Absolute Auto 0.9 X10*3/uL (1.2-4.9); Lymphocytes Percent Auto 8.9 % (20-40); Mean Corpuscular HGB Conc 32.9 g/dl (31.0-36.0); Mean Corpuscular Hemoglobin 26.6 pg (27.0-33.0); Mean Corpuscular Volume 80.8 fL (80.0-98.0); Mean Platelet Volume 10.3 fL (9.4-12.4); Monocytes Absolute Auto 1.5 X10*3/uL (0.1-1.2); Monocytes Percent Auto 13.9 % (2-11); Neutrophils Percent Auto 76.3 % (45-73); Platelet Count 120 X10*3/uL (160-400); Red Blood Count 3.95 X10*6/uL (4.60-5.80); Red Cell Distribution Width 16.5 % (11.0-16.0); White Blood Count 10.5 X10*3/uL (4.8-10.8)
[2022-07-20 07:22] LABS: Anion Gap 14 (12-20); Blood Urea Nitrogen 13 mg/dL (9-16); Calcium 8.2 mg/dL (8.4-10.2); Carbon Dioxide 25 mmol/L (22-29); Chloride 104 mmol/L (96-108); Creatinine Clr Calc Pharmacy 57.2; Estimated Glomerular Filt Rate > 60; Glucose Fasting 150 mg/dL (60-99); Potassium 4.8 mmol/L (3.3-5.1); Sodium 138 mmol/L (135-145)
[2022-07-20 07:57] VITALS: BP 136/71; PULSE 75; RESP 18; TEMP 37.2; O2SAT 96
[2022-07-20 07:59] LABS: Glucose, Whole Blood 154 mg/dL (60-115)
--- NOTE | 2022-07-20 08:08 | PM.PNGS ---
Subjective Subjective Date of Service: 07/20/22 Interval history: Feels overall much better this morning. Denies nausea. Stoma now wiith liquid and solid stool output. Has not been OOB. Pain well controlled. Reports discomfort from NGT and wants it out. Physical Exam Vital Signs: Vital Signs: Last Vital Signs Temp 98.9 F 07/20/22 07:57 Pulse 75 07/20/22 07:57 Resp 18 07/20/22 07:57 BP 136/71 07/20/22 07:57 Pulse Ox 96 07/20/22 07:57 O2 Del Method Room Air 07/20/22 07:57 O2 Flow Rate 2 07/19/22 19:24 BMI result Body Mass Index 22.8 Const: General: comfortable, no acute distress and alert Orientation/consciousness: patient oriented x3 HEENT: Other: NGT in place with bilious output Resp: Effort & Inspection: normal respiratory effort GI: Inspection: No distended and Yes incision (dressing c/d/i) Palpation (GI): Soft to palpation, Tenderness to palpation present (GI) (mild, incisional), no guarding and not rigid Percussion: Yes normal to percussion Skin: General skin exam: no rashes or lesions noted Neuro: General: patient oriented x3 Objective Data Active Medications Famotidine (Famotidine/Pf 20 Mg/2 Ml Vial) 20 mg IVPUSH DAILY [facility] Glucose (Glucose Gel 15 Gm Gel..Gram.) 15 gm PO Q15M PRN; Protocol PRN Reason: per Hypoglycemia Standing Ord. Acetaminophen (Ofirmev) 1,000 mg in 100 mls @ 400 mls/hr IV Q6H [facility] Last Infusion: 07/20/22 05:09 Dose: 0 mls/hr Documented By: MICHAEL Dextrose (D10) 250 mls @ 750 mls/hr IV Q15M PRN; Protocol PRN Reason: per Hypoglycemia Standing Ord. Lactated Ringer's (Lr) 1,000 mls @ 100 mls/hr IVCONT .Q10H [facility] Last Admin: 07/20/22 01:34 Dose: 100 mls/hr Documented By: MICHAEL Insulin Human Lispro (Insulin Lispro 100 Unit/Ml 3 Ml Vial) 0 unit SUBCUT QIDACHS [facility]; Protocol Last Admin: 07/20/22 08:00 Dose: Not Given Documented By: ELENA Non-Admin Reason: No Insulin Coverage Lisinopril (Lisinopril 20 Mg Tablet) 20 mg PO DAILY [facility]; Protocol Morphine Sulfate (Morphine Sulfate 4 Mg/Ml Cartridge) 4 mg IVPUSH Q3H PRN; Protocol PRN Reason: Pain, Severe (Pain Scale 7-10) Ondansetron HCl (Ondansetron Hcl 4 Mg/2 Ml Vial) 4 mg IVPUSH Q8H PRN PRN Reason: Nausea and Vomiting Pharmacy Consult (Consult Rx Perform Med Rec) 1 each MISCELLANE ONCE PRN PRN Reason: Consult order Sodium Chloride (0.9 % Sodium Chloride Flush 3 Ml Syringe) 3 ml IVFLUSH QSHIFT [facility] Last Admin: 07/20/22 00:01 Dose: Not Given Documented By: MICHAEL Non-Admin Reason: IV Running Labs 07/20/22 05:35 07/20/22 05:35 Labs: Laboratory Results - last 24 hr 07/19/22 07/19/22 07/19/22 09:39 09:39 09:39 MCV 80.0 MCH 26.8 L MCHC 33.5 RDW 16.6 H Plt Count 118 L MPV 9.7 Immature Gran % (Auto) 0.5 H Neut % (Auto) 83.5 H Lymph % (Auto) 7.2 L [place] % (Auto) 8.4 Eos % (Auto) 0.2 Baso % (Auto) 0.2 Lymph # (Auto) 0.8 L [place] # (Auto) 0.9 Eos # (Auto) 0.0 Baso # (Auto) 0.0 Abs Immat Gran (auto) 0.05 H Absolute Neuts (auto) 9.1 H Absolute Nucleated RBC 0.000 Nucleated RBC % (auto) 0.0 Anion Gap 16 Estim Creat Clear Calc 49.8 Estimated GFR > 60 POC Glucose Random Glucose 266 H Fasting Glucose Calcium 9.0 Magnesium 1.4 L* Total Bilirubin 0.9 Direct Bilirubin 0.3 AST 15 ALT 19 Alkaline Phosphatase 120 H Total Protein 6.3 L Albumin 4.0 Lipase 18 COVID-19 ([facility]) Negative COVID-19 Clin Com See Note Blood Type Antibody Screen 07/19/22 07/19/22 07/19/22 12:27 12:52 16:46 MCV MCH MCHC RDW Plt Count MPV Immature Gran % (Auto) Neut % (Auto) Lymph % (Auto) [place] % (Auto) Eos % (Auto) Baso % (Auto) Lymph # (Auto) [place] # (Auto) Eos # (Auto) Baso # (Auto) Abs Immat Gran (auto) Absolute Neuts (auto) Absolute Nucleated RBC Nucleated RBC % (auto) Anion Gap Estim Creat Clear Calc Estimated GFR POC Glucose 193 H 241 H Random Glucose Fasting Glucose Calcium Magnesium Total Bilirubin Direct Bilirubin AST ALT Alkaline Phosphatase Total Protein Albumin Lipase COVID-19 ([facility]) COVID-19 Clin Com Blood Type A Positive Antibody Screen NEGATIVE 07/19/22 07/20/22 07/20/22 20:00 05:35 05:35 MCV 80.8 MCH 26.6 L MCHC 32.9 RDW 16.5 H Plt Count 120 L MPV 10.3 Immature Gran % (Auto) 0.5 H Neut % (Auto) 76.3 H Lymph % (Auto) 8.9 L [place] % (Auto) 13.9 H Eos % (Auto) 0.1 Baso % (Auto) 0.3 Lymph # (Auto) 0.9 L [place] # (Auto) 1.5 H Eos # (Auto) 0.0 Baso # (Auto) 0.0 Abs Immat Gran (auto) 0.05 H Absolute Neuts (auto) 8.0 Absolute Nucleated RBC 0.000 Nucleated RBC % (auto) 0.0 Anion Gap 14 Estim Creat Clear Calc 57.2 Estimated GFR > 60 POC Glucose 251 H Random Glucose Fasting Glucose 150 H Calcium 8.2 L D Magnesium Total Bilirubin Direct Bilirubin AST ALT Alkaline Phosphatase Total Protein Albumin Lipase COVID-19 ([facility]) COVID-19 Clin Com Blood Type Antibody Screen 07/20/22 07:47 MCV MCH MCHC RDW Plt Count MPV Immature Gran % (Auto) Neut % (Auto) Lymph % (Auto) [place] % (Auto) Eos % (Auto) Baso % (Auto) Lymph # (Auto) [place] # (Auto) Eos # (Auto) Baso # (Auto) Abs Immat Gran (auto) Absolute Neuts (auto) Absolute Nucleated RBC Nucleated RBC % (auto) Anion Gap Estim Creat Clear Calc Estimated GFR POC Glucose 154 H Random Glucose Fasting Glucose Calcium Magnesium Total Bilirubin Direct Bilirubin AST ALT Alkaline Phosphatase Total Protein Albumin Lipase COVID-19 ([facility]) COVID-19 Clin Com Blood Type Antibody Screen Procedures Date of Service Date of Service: 07/20/22 Progress Note: A&P Assessment and plan (1) Small bowel obstruction: Status: Acute (2) Status post colon resection: Status: Acute (3) Colon cancer: Status: Acute Plan 71 year old male with hx of laparotomy and transverse colon resection and diverting loop ileostomy for obstructing colon CA in 05/17. He had 2 day history of abdominal pain, and vomiting found to have closed loop small-bowel obstruction on CT scan.?Therefore underwent ex lap, extensive RAQUEL yesterday. He is doing well this morning now and obstruction seems to be resolving with good ileostomy output. NGT output has not been significant. VSS. Abd very benign with appropriate post op tenderness, clean dressing. Will dc NGT. Ok for ice chips, sips of water. Encouraged OOB/ambulation. Dc kern. Cont IVF for now. Will advance diet as tolerated. Time Spent With Patient Time: Total time managing care of this patient today ____ minutes. Quality Stroke Does the patient have a stroke diagnosis?: No VTE Prior VTE?: No VTE Risk Level:: Medical - moderate - high VTE Device Contraindication: N/A - Device Ordered VTE Drug Contraindication: N/A - Med Ordered
[2022-07-20 08:31] LABS: Magnesium 1.6 mg/dL (1.6-2.6)
[2022-07-20] MEDS: Famotidine/PF 20 MG/2 ML VIAL IVPUSH (09:05)
[2022-07-20] MEDS: 0.9 % Sodium Chloride Flush 3 ML SYRINGE IVFLUSH ×2 (09:05→19:56)
[2022-07-20] MEDS: lisinopriL 20 MG TABLET PO (09:06)
--- NOTE | 2022-07-20 09:59 | HO.PM.IMPN ---
Subjective Subjective Date of Service: 07/20/22 Review of Systems Follow up consult, SBO doing better still with NGT Physical Exam Vital Signs: Vital Signs: Last Vital Signs Temp 98.9 F 07/20/22 07:57 Pulse 75 07/20/22 07:57 Resp 18 07/20/22 07:57 BP 136/71 07/20/22 07:57 Pulse Ox 96 07/20/22 07:57 O2 Del Method Room Air 07/20/22 07:57 O2 Flow Rate 2 07/19/22 19:24 BMI result Body Mass Index 22.8 Appearing in no acute distress lung sounds are clear to auscultation heart regular rate rhythm, clear S1, S2 positive bowel sounds, abdomen is soft, nontender, NGT neuro patient is alert x3, no focal deficits Objective Data Active Medications Famotidine (Famotidine/Pf 20 Mg/2 Ml Vial) 20 mg IVPUSH DAILY [facility] Last Admin: 07/20/22 09:05 Dose: 20 mg Documented By: ELENA Glucose (Glucose Gel 15 Gm Gel..Gram.) 15 gm PO Q15M PRN; Protocol PRN Reason: per Hypoglycemia Standing Ord. Acetaminophen (Ofirmev) 1,000 mg in 100 mls @ 400 mls/hr IV Q6H [facility] Last Infusion: 07/20/22 09:41 Dose: 0 mls/hr Documented By: ELENA Dextrose (D10) 250 mls @ 750 mls/hr IV Q15M PRN; Protocol PRN Reason: per Hypoglycemia Standing Ord. Lactated Ringer's (Lr) 1,000 mls @ 100 mls/hr IVCONT .Q10H [facility] Last Admin: 07/20/22 01:34 Dose: 100 mls/hr Documented By: MICHAEL Insulin Human Lispro (Insulin Lispro 100 Unit/Ml 3 Ml Vial) 0 unit SUBCUT QIDACHS [facility]; Protocol Last Admin: 07/20/22 08:00 Dose: Not Given Documented By: ELENA Non-Admin Reason: No Insulin Coverage Lisinopril (Lisinopril 20 Mg Tablet) 20 mg PO DAILY [facility]; Protocol Last Admin: 07/20/22 09:06 Dose: 20 mg Documented By: ELENA Morphine Sulfate (Morphine Sulfate 4 Mg/Ml Cartridge) 4 mg IVPUSH Q3H PRN; Protocol PRN Reason: Pain, Severe (Pain Scale 7-10) Ondansetron HCl (Ondansetron Hcl 4 Mg/2 Ml Vial) 4 mg IVPUSH Q8H PRN PRN Reason: Nausea and Vomiting Pharmacy Consult (Consult Rx Perform Med Rec) 1 each MISCELLANE ONCE PRN PRN Reason: Consult order Sodium Chloride (0.9 % Sodium Chloride Flush 3 Ml Syringe) 3 ml IVFLUSH QSHIFT [facility] Last Admin: 07/20/22 09:05 Dose: 3 ml Documented By: ELENA Labs 07/20/22 05:35 07/20/22 05:35 Labs: Laboratory Results - last 24 hr 07/19/22 07/19/22 07/19/22 09:39 09:39 12:27 MCV MCH MCHC RDW Plt Count MPV Immature Gran % (Auto) Neut % (Auto) Lymph % (Auto) [place] % (Auto) Eos % (Auto) Baso % (Auto) Lymph # (Auto) [place] # (Auto) Eos # (Auto) Baso # (Auto) Abs Immat Gran (auto) Absolute Neuts (auto) Absolute Nucleated RBC Nucleated RBC % (auto) Anion Gap 16 Estim Creat Clear Calc 49.8 Estimated GFR > 60 POC Glucose 193 H Random Glucose 266 H Fasting Glucose Calcium 9.0 Magnesium 1.4 L* Total Bilirubin 0.9 Direct Bilirubin 0.3 AST 15 ALT 19 Alkaline Phosphatase 120 H Total Protein 6.3 L Albumin 4.0 Lipase 18 COVID-19 ([facility]) Negative COVID-19 Clin Com See Note Blood Type Antibody Screen 07/19/22 07/19/22 07/19/22 12:52 16:46 20:00 MCV MCH MCHC RDW Plt Count MPV Immature Gran % (Auto) Neut % (Auto) Lymph % (Auto) [place] % (Auto) Eos % (Auto) Baso % (Auto) Lymph # (Auto) [place] # (Auto) Eos # (Auto) Baso # (Auto) Abs Immat Gran (auto) Absolute Neuts (auto) Absolute Nucleated RBC Nucleated RBC % (auto) Anion Gap Estim Creat Clear Calc Estimated GFR POC Glucose 241 H 251 H Random Glucose Fasting Glucose Calcium Magnesium Total Bilirubin Direct Bilirubin AST ALT Alkaline Phosphatase Total Protein Albumin Lipase COVID-19 ([facility]) COVID-19 Clin Com Blood Type A Positive Antibody Screen NEGATIVE 07/20/22 07/20/22 07/20/22 05:35 05:35 07:47 MCV 80.8 MCH 26.6 L MCHC 32.9 RDW 16.5 H Plt Count 120 L MPV 10.3 Immature Gran % (Auto) 0.5 H Neut % (Auto) 76.3 H Lymph % (Auto) 8.9 L [place] % (Auto) 13.9 H Eos % (Auto) 0.1 Baso % (Auto) 0.3 Lymph # (Auto) 0.9 L [place] # (Auto) 1.5 H Eos # (Auto) 0.0 Baso # (Auto) 0.0 Abs Immat Gran (auto) 0.05 H Absolute Neuts (auto) 8.0 Absolute Nucleated RBC 0.000 Nucleated RBC % (auto) 0.0 Anion Gap 14 Estim Creat Clear Calc 57.2 Estimated GFR > 60 POC Glucose 154 H Random Glucose Fasting Glucose 150 H Calcium 8.2 L D Magnesium 1.6 Total Bilirubin Direct Bilirubin AST ALT Alkaline Phosphatase Total Protein Albumin Lipase COVID-19 ([facility]) COVID-19 Clin Com Blood Type Antibody Screen Assessment and Plan (1) Coagulase negative Staphylococcus bacteremia: Status: Acute (2) Acute kidney injury: Status: Acute (3) Acute hyperkalemia: Status: Acute (4) Colon cancer: Status: Acute Assessment and Plan: 71-year-old man admitted by general surgery and is status post laparotomy and lysis of adhesions Laparotomy Management as per surgical team Pain management PPI NGT Hypomagnesemia Repleted Diabetes mellitus type 2 Sliding scale, ADA diet was started by admitting team Hypertension Continue home medications as blood pressure is on the higher side Hyperlipidemia Continue statin at discharge DVT prophylaxis as per surgical team Full code Attending Dr. Hilario Medical consultation completed. Will sign off (5) Small bowel obstruction: Status: Acute Time Spent With Patient Time: Total time managing care of this patient today ____ minutes. Quality Stroke Does the patient have a stroke diagnosis?: No VTE Prior VTE?: No VTE Risk Level:: Medical - moderate - high VTE Device Contraindication: N/A - Device Ordered VTE Drug Contraindication: N/A - Med Ordered
--- NOTE | 2022-07-20 11:18 | MHC.CM.PN ---
pt lives with his ,he is covid vax reports he has a vna 2 x weekly for bp checks and ostomy care he is unsure of agencey call placed and message left for dc plan home resume vna
[2022-07-20 11:21] LABS: Glucose, Whole Blood 177 mg/dL (60-115)
[2022-07-20] MEDS: oxyCODONE HCl Immed Release 5 MG TABLET 10 MG PO (11:26)
--- NOTE | 2022-07-20 15:31 | HO.POSTANES ---
Post Anesthesia Evaluation Post Anesthesia Evaluation Vital Signs: Vital Signs Temp Pulse Resp BP Pulse Ox O2 Del Method 07/20/22 07:57 98.9 F 75 18 136/71 96 Room Air 07/20/22 03:40 97.5 F 74 16 134/72 100 Room Air Anesthesia: General Endotracheal-GETA Mental Status: Awake Pain Control: Satisfactory Nausea/Vomiting: None Hydration: Adequate Anesthesia-Related Issues: No Anes. Related Issues
[2022-07-20 15:40] VITALS: BP 99/58; PULSE 70; RESP 18; TEMP 36.6; O2SAT 99
--- NOTE | 2022-07-20 15:40 | PM.EVENT ---
Event Note Date of Service: 07/20/22 Event Note: Seen on afternoon rounds He says he continues to feel well Tolerating liquids Stoma functioning Pain well controlled He has been ambulating Wants to try regular fluid tonight Looks well bedside Time Spent With Patient Time: Total time managing care of this patient today ____ minutes.
[2022-07-20 16:43] LABS: Glucose, Whole Blood 155 mg/dL (60-115)
[2022-07-20 19:25] VITALS: BP 101/55; PULSE 77; RESP 16; TEMP 36.6; O2SAT 97
[2022-07-20 20:30] LABS: Glucose, Whole Blood 223 mg/dL (60-115)
[2022-07-20] MEDS: Insulin Lispro 100 UNIT/ML 3 ML VIAL SUBCUT (20:51)
[2022-07-20] MEDS: Lactated Ringers 1,000 ML 80 ML IVCONT (20:52)
[2022-07-20 23:46] VITALS: BP 90/55; PULSE 72; RESP 16; TEMP 36.3; O2SAT 97
[2022-07-21 03:26] VITALS: BP 103/56; PULSE 74; RESP 16; TEMP 36.6; O2SAT 95
[2022-07-21 07:23] LABS: Glucose, Whole Blood 141 mg/dL (60-115)
[2022-07-21] MEDS: oxyCODONE HCl Immed Release 5 MG TABLET 10 MG PO (07:46)
[2022-07-21] MEDS: Lactated Ringers 1,000 ML 80 ML IVCONT (07:47)
[2022-07-21 08:00] VITALS: BP 114/56; PULSE 80; RESP 18; TEMP 36.6; O2SAT 94
[2022-07-21] MEDS: lisinopriL 20 MG TABLET PO (08:04)
[2022-07-21] MEDS: Famotidine/PF 20 MG/2 ML VIAL IVPUSH (08:05)
[2022-07-21] MEDS: Acetaminophen 1,000 MG/100 ML PIGGYBACK 400 MG IV ×3 (08:05→22:39)
--- NOTE | 2022-07-21 08:46 | PM.PNGS ---
Subjective Subjective Date of Service: 07/21/22 <Crystal Hernandez PA-C - Last Filed: 07/21/22 08:47> 07/21/22 <Darion Fam MD - Last Filed: 07/21/22 09:49> Interval history: Feeling well this morning. Tolerating solid diet. OOB and ambulating halls. <Crystal Hernandez PA-C - Last Filed: 07/21/22 08:47> Physical Exam Vital Signs: Vital Signs: Last Vital Signs Temp 97.8 F 07/21/22 03:26 Pulse 74 07/21/22 03:26 Resp 16 07/21/22 03:26 BP 103/56 L 07/21/22 03:26 Pulse Ox 95 07/21/22 03:26 O2 Del Method Room Air 07/21/22 03:26 O2 Flow Rate 2 07/19/22 19:24 BMI result Body Mass Index 22.8 <Crystal Hernandez PA-C - Last Filed: 07/21/22 08:47> Const: General: comfortable, no acute distress and alert <Crystal Hernandez PA-C - Last Filed: 07/21/22 08:47> Orientation/consciousness: patient oriented x3 <Crystal Hernandez PA-C - Last Filed: 07/21/22 08:47> Resp: Effort & Inspection: normal respiratory effort <Crystal Hernandez PA-C - Last Filed: 07/21/22 08:47> GI: Other: ileostomy pink, small amt of stool output in appliance <Crystal Hernandez PA-C - Last Filed: 07/21/22 08:47> Inspection: No distended and Yes incision (clean) <Crystal Hernandez PA-C - Last Filed: 07/21/22 08:47> Palpation (GI): Soft to palpation, Tenderness to palpation present (GI) (mild, incisional), no guarding and not rigid <GEOVANY Swanson Last Filed: 07/21/22 08:47> Percussion: Yes normal to percussion <GEOVANY Swanson Last Filed: 07/21/22 08:47> Skin: General skin exam: no rashes or lesions noted <Crystal Hernandez PA-C - Last Filed: 07/21/22 08:47> Neuro: General: patient oriented x3 <Crystal Hernandez PA-C - Last Filed: 07/21/22 08:47> Objective Data Active Medications Famotidine (Famotidine/Pf 20 Mg/2 Ml Vial) 20 mg IVPUSH DAILY [facility] Last Admin: 07/21/22 08:05 Dose: 20 mg Documented By: ALPA Glucose (Glucose Gel 15 Gm Gel..Gram.) 15 gm PO Q15M PRN; Protocol PRN Reason: per Hypoglycemia Standing Ord. Acetaminophen (Ofirmev) 1,000 mg in 100 mls @ 400 mls/hr IV Q6H [facility] Last Infusion: 07/21/22 08:39 Dose: 0 mls/hr Documented By: MURPHY Dextrose (D10) 250 mls @ 750 mls/hr IV Q15M PRN; Protocol PRN Reason: per Hypoglycemia Standing Ord. Lactated Ringer's (Lr) 1,000 mls @ 80 mls/hr IVCONT .[id number] [facility] Last Admin: 07/21/22 07:47 Dose: 80 mls/hr Documented By: MURPHY Insulin Human Lispro (Insulin Lispro 100 Unit/Ml 3 Ml Vial) 0 unit SUBCUT QIDACHS [facility]; Protocol Last Admin: 07/21/22 07:24 Dose: Not Given Documented By: MURPHY Non-Admin Reason: See Note Lisinopril (Lisinopril 20 Mg Tablet) 20 mg PO DAILY [facility]; Protocol Last Admin: 07/21/22 08:04 Dose: 20 mg Documented By: ALPA Morphine Sulfate (Morphine Sulfate 4 Mg/Ml Cartridge) 4 mg IVPUSH Q3H PRN; Protocol PRN Reason: Pain, Severe (Pain Scale 7-10) Ondansetron HCl (Ondansetron Hcl 4 Mg/2 Ml Vial) 4 mg IVPUSH Q8H PRN PRN Reason: Nausea and Vomiting Oxycodone HCl (Oxycodone Hcl Immed Release 5 Mg Tablet) 10 mg PO Q4H PRN PRN Reason: Pain, Severe (Pain Scale 7-10) Last Admin: 07/21/22 07:46 Dose: 10 mg Documented By: MURPHY Pharmacy Consult (Consult Rx Perform Med Rec) 1 each MISCELLANE ONCE PRN PRN Reason: Consult order Sodium Chloride (0.9 % Sodium Chloride Flush 3 Ml Syringe) 3 ml IVFLUSH QSHIFT [facility] Last Admin: 07/21/22 07:24 Dose: Not Given Documented By: MURPHY Non-Admin Reason: See Note <Crystal Hernandez PA-C - Last Filed: 07/21/22 08:47> Labs CBC & Chem 7: 07/20/22 05:35 07/20/22 05:35 <GEOVANY Swanson Last Filed: 07/21/22 08:47> Labs: Laboratory Results - last 24 hr 07/20/22 07/20/22 07/20/22 11:07 16:35 20:24 POC Glucose 177 H 155 H 223 H 07/21/22 07:10 POC Glucose 141 H <Crystal Hernandez PA-C - Last Filed: 07/21/22 08:47> Procedures Date of Service Date of Service: 07/21/22 <Darion Fam MD - Last Filed: 07/21/22 09:49> Progress Note: A&P Assessment and plan (1) Small bowel obstruction: Status: Acute <Crystal Hernandez PA-C - Last Filed: 07/21/22 08:47> Assessment and Plan: Status post laparotomy, extensive lysis of adhesions He continues to do well Tolerating regular diet Good stoma function Seems to have good pain control Abdomen soft He feels he may be ready to go home this afternoon Will re-evaluate later Doing well overall postop Seen and examined independently-agree with KOLBY Hernandez <Darion Fam MD - Last Filed: 07/21/22 09:49> (2) Status post colon resection: Status: Acute <Crystal Hernandez PA-C - Last Filed: 07/21/22 08:47> Assessment and Plan: 71 year old male with hx of laparotomy and transverse colon resection and diverting loop ileostomy for obstructing colon CA in 05/17. He had 2 day history of abdominal pain, and vomiting found to have closed loop small-bowel obstruction on CT scan. Therefore underwent ex lap, extensive RAQUEL 07/19/22. Continues to do well and tolerating solid diet. Ileostomy continues with output VSS. Abd very benign with appropriate post op tenderness, clean dressing. Will dc NGT. Ok for ice chips, sips of water. Encouraged OOB/ambulation. Dc kern. Cont IVF for now. Will advance diet as tolerated. <Crystal Hernandez PA-C - Last Filed: 07/21/22 08:47> Time Spent With Patient Time: Total time managing care of this patient today ____ minutes. <Crystal Hernandez PA-C - Last Filed: 07/21/22 08:47> Quality Stroke Does the patient have a stroke diagnosis?: No <Crystal Hernandez PA-C - Last Filed: 07/21/22 08:47> VTE Prior VTE?: No <Crystal Hernandez PA-C - Last Filed: 07/21/22 08:47> VTE Risk Level:: Medical - moderate - high <GEOVANY Swanson Last Filed: 07/21/22 08:47> VTE Device Contraindication: N/A - Device Ordered <GEOVANY Swanson Last Filed: 07/21/22 08:47> VTE Drug Contraindication: N/A - Med Ordered <Crystal Hernandez PA-C - Last Filed: 07/21/22 08:47>
--- NOTE | 2022-07-21 08:58 | P.CDIM_ITS ---
PROVIDER RESPONSE TEXT: To clarify, the appropriate diagnosis supported by the clinical indicators: Small bowel obstruction with adhesions, complete QUERY TEXT: PHYSICIAN'S DOCUMENTATION REQUEST Date of Query: 07/20/2022 08:42 AM EDT Patient Name: Evgeny Samayoa Admit Date: 07/19/2022 Dear Darion Fam, A review of the medical record indicates additional documentation may be needed. Please review below and update the documentation accordingly. Clinical Indicators: CT 07/18 - Fecal residue seen in a loop of bowel left upper mid quadrant likely closed loop obstructio n from adhesions. OP 07/19 - Closed loop small bowel obstruction, extensive lysis of adhesions. Based on the above, could you clarify the appropriate diagnosis, if significant, that supports the ab ove abnormalities and additional evaluation, monitoring, and/or treatment rendered: Small bowel obstruction with adhesions Small bowel obstruction with adhesions, complete Small bowel obstruction with adhesions, incomplete Small bowel obstruction with adhesions, partial Small bowel obstruction with adhesions, unspecified or unable to determine Other (explain) Clinically unable to determine (explain) Thank you, Pham Tomlinson, CCS, CDIS Use of terms such as suspected, likely, concern for, or probable (associated with a specific diagnosi s that is being evaluated, monitored, or treated as if it exists) are acceptable and can be coded in the inpatient se tting, when documented at the time of discharge. Please use your independent medical judgment in providing your response. THIS QUERY IS PART OF THE PERMANENT MEDICAL RECORD
[2022-07-21 11:11] LABS: Glucose, Whole Blood 192 mg/dL (60-115)
[2022-07-21 16:00] VITALS: BP 137/69; PULSE 75; RESP 18; TEMP 36.4; O2SAT 98
[2022-07-21 16:34] LABS: Glucose, Whole Blood 211 mg/dL (60-115)
[2022-07-21] MEDS: Insulin Lispro 100 UNIT/ML 3 ML VIAL SUBCUT (16:39)
[2022-07-21 20:08] LABS: Glucose, Whole Blood 199 mg/dL (60-115)
[2022-07-21] MEDS: 0.9 % Sodium Chloride Flush 3 ML SYRINGE IVFLUSH (22:40)
[2022-07-21 23:41] VITALS: BP 141/64; PULSE 72; RESP 16; TEMP 36.6; O2SAT 95
[2022-07-22 03:52] VITALS: BP 146/76; PULSE 76; RESP 16; TEMP 36.6; O2SAT 98
[2022-07-22 07:09] VITALS: BP 168/77; PULSE 70; RESP 18; TEMP 36.8; O2SAT 95
[2022-07-22 07:35] LABS: Glucose, Whole Blood 175 mg/dL (60-115)
--- NOTE | 2022-07-22 08:04 | P.PNGS_ITS ---
Subjective Subjective Date of Service: 07/22/22 <Crystal Hernandez PA-C - Last Filed: 07/22/22 09:14> 07/22/22 <Darion Fam MD - Last Filed: 07/22/22 08:45> Interval history: Feels well today. Pain well controlled. tolerating solid diet. Ostomy functioning. OOB and ambulating without difficulty. <Crystal Hernandez PA-C - Last Filed: 07/22/22 09:14> Physical Exam Vital Signs: Vital Signs: Last Vital Signs Temp 98.3 F 07/22/22 07:09 Pulse 70 07/22/22 07:09 Resp 18 07/22/22 07:09 BP 168/77 H 07/22/22 07:09 Pulse Ox 95 07/22/22 07:09 O2 Del Method Room Air 07/22/22 07:09 O2 Flow Rate 2 07/19/22 19:24 BMI result Body Mass Index 22.8 <Crystal Hernandez PA-C - Last Filed: 07/22/22 09:14> Const: General: comfortable, no acute distress and alert <Crystal Hernandez PA-C - Last Filed: 07/22/22 09:14> Orientation/consciousness: patient oriented x3 <Crystal Hernandez PA-C - Last Filed: 07/22/22 09:14> Resp: Effort & Inspection: normal respiratory effort <Crystal Hernandez PA-C - Last Filed: 07/22/22 09:14> GI: Other: ostomy pink <Crystal Hernandez PA-C - Last Filed: 07/22/22 09:14> Inspection: No distended and Yes incision (clean) <Crystal Hernandez PA-C - Last Filed: 07/22/22 09:14> Palpation (GI): Soft to palpation, Tenderness to palpation present (GI) (mild i ncisional), no guarding and not rigid <GEOVANY Swanson Last Filed: 07/22/22 09:14> Skin: General skin exam: no rashes or lesions noted <GEOVANY Swanson Last Filed: 07/22/22 09:14> Neuro: General: patient oriented x3 and moves all extremities <Crystal Hernandez PA-C - Last Filed: 07/22/22 09:14> Objective Data Active Medications Famotidine (Famotidine/Pf 20 Mg/2 Ml Vial) 20 mg IVPUSH DAILY [facility] Last Admin: 07/21/22 08:05 Dose: 20 mg Documented By: ALPA Glucose (Glucose Gel 15 Gm Gel..Gram.) 15 gm PO Q15M PRN; Protocol PRN Reason: per Hypoglycemia Standing Ord. Acetaminophen (Ofirmev) 1,000 mg in 100 mls @ 400 mls/hr IV Q6H [facility] Last Admin: 07/22/22 04:19 Dose: Not Given Documented By: AGNES Non-Admin Reason: Patient Asleep Dextrose (D10) 250 mls @ 750 mls/hr IV Q15M PRN; Protocol PRN Reason: per Hypoglycemia Standing Ord. Insulin Human Lispro (Insulin Lispro 100 Unit/Ml 3 Ml Vial) 0 unit SUBCUT QIDACHS [facility]; Protocol Last Admin: 07/22/22 07:39 Dose: Not Given Documented By: OBINNA Non-Admin Reason: No Insulin Coverage Lisinopril (Lisinopril 20 Mg Tablet) 20 mg PO DAILY [facility]; Protocol Last Admin: 07/21/22 08:04 Dose: 20 mg Documented By: ALPA Morphine Sulfate (Morphine Sulfate 4 Mg/Ml Cartridge) 4 mg IVPUSH Q3H PRN; Protocol PRN Reason: Pain, Severe (Pain Scale 7-10) Ondansetron HCl (Ondansetron Hcl 4 Mg/2 Ml Vial) 4 mg IVPUSH Q8H PRN PRN Reason: Nausea and Vomiting Oxycodone HCl (Oxycodone Hcl Immed Release 5 Mg Tablet) 10 mg PO Q4H PRN PRN Reason: Pain, Severe (Pain Scale 7-10) Last Admin: 07/21/22 07:46 Dose: 10 mg Documented By: MURPHY Pharmacy Consult (Consult Rx Perform Med Rec) 1 each MISCELLANE ONCE PRN PRN Reason: Consult order Sodium Chloride (0.9 % Sodium Chloride Flush 3 Ml Syringe) 3 ml IVFLUSH QSHIFT [facility] Last Admin: 07/21/22 22:40 Dose: 3 ml Documented By: AGNES <Crystal Hernandez PA-C - Last Filed: 07/22/22 09:14> Labs CBC & Chem 7: 07/20/22 05:35 07/20/22 05:35 <Crystal Hernandez PA-C - Last Filed: 07/22/22 09:14> Labs: Laboratory Results - last 24 hr 07/21/22 07/21/22 07/21/22 11:03 16:29 20:05 POC Glucose 192 H 211 H 199 H 07/22/22 07:07 POC Glucose 175 H <Crystal Hernandez PA-C - Last Filed: 07/22/22 09:14> Procedures Date of Service Date of Service: 07/22/22 <Darion Fam MD - Last Filed: 07/22/22 08:45> Progress Note: A&P Assessment and plan (1) Small bowel obstruction: Status: Acute <Crystal Hernandez PA-C - Last Filed: 07/22/22 09:14> Assessment and Plan: continues to feel well postoperatively good p.o. intake appropriate incisional pain stoma functioning well okay to DC home today follow-up in the office he also has a follow-up with Dr. Terrell <Darion Fam MD - Last Filed: 08:45> (2) Status post colon resection: Status: Acute <Crystal Hernandez PA-C - Last Filed: 07/22/22 09:14> (3) Colon cancer: Status: Acute <Crystal Hernandez PA-C - Last Filed: 07/22/22 09:14> Assessment and Plan: 71 year old male with hx of laparotomy and transverse colon resection and diverting loop ileostomy for obstructing colon CA in 05/17. He had 2 day history of abdominal pain, and vomiting found to have closed loop small-bowel obstructi on on CT scan. Therefore underwent ex lap, extensive RAQUEL 07/19/22. Doing well post op, comfortable on PO analgesics, tolerating diet with good ostomy function. vss. abd exam is benign with clean incision. Stable for discharge to home today with VNA services. F/u in office in 2 weeks. <Crystal Hernandez PA-C - Last Filed: 07/22/22 09:14> Time Spent With Patient Time: Total time managing care of this patient today ____ minutes. <Crystal Hernandez PA-C - Last Filed: 07/22/22 09:14> Quality Stroke Does the patient have a stroke diagnosis?: No <Crystal Hernandez PA-C - Last Filed: 07/22/22 09:14> VTE Prior VTE?: No <Crystal Hernandez PA-C - Last Filed: 07/22/22 09:14> VTE Risk Level:: Medical - moderate - high <Crystal Hernandez PA-C - Last Filed: 07/22/22 09:14> VTE Device Contraindication: N/A - Device Ordered <Crystal Hernandez PA-C - Last Filed: 07/22/22 09:14> VTE Drug Contraindication: N/A - Med Ordered <Crystal Hernandez PA-C - Last Filed: 07/22/22 09:14>
[2022-07-22] MEDS: Famotidine/PF 20 MG/2 ML VIAL IVPUSH (08:36)
[2022-07-22] MEDS: lisinopriL 20 MG TABLET PO (08:36)
[2022-07-22] MEDS: 0.9 % Sodium Chloride Flush 3 ML SYRINGE IVFLUSH (08:37)
--- NOTE | 2022-07-22 09:18 | PM.DS ---
DS: Providers Provider Date of Service: 07/22/22 Date of admission: 07/19/22 11:25 Date of discharge: 07/22/22 Primary care physician: Bimal Lepe MD Attending physician on admission: Darion Fam Consults: 07/19/22 16:09 Consult to Hospitalist Routine Consulting Provider: Hospitalist Reason For Exam: DM, HTN, DS: Diagnosis Discharge Diagnosis (1) Small bowel obstruction: Status: Acute (2) Status post colon resection: Status: Acute (3) Colon cancer: Status: Acute DS: Summary Hospital Course Hospital Course: HPI AT ADMISSION: Evgeny Ag is a 71 year old male who was sent to the ER this morning because of abdominal pain. He had undergone urgent transverse colon resection with a diverting loop ileostomy for obstruction last April 29, 2022. 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 He has been undergoing adjuvant chemotherapy. He had been doing very well and says that he has had no problems with stoma function as well as with oral intake. However he says that he had sudden abdominal pain 2 days ago. He also had multiple episodes of vomiting. He went to the emergency room yesterday. He had a CAT scan showing what appeared to be a small-bowel obstruction with question of closed loop. At that time, he has stoma had and he says that his pain improved so he was discharged from the ER. However, he continued to have vomiting overnight at home along with episodes of pain. His stoma has had no output since yesterday. HOSPITAL COURSE: He was admitted to the surgical service for further treatment of the SBO. His CAT scan with the radiologist and he appeared to have a closed loop small-bowel obstruction, likely secondary to adhesions from his colon resection. It was therefore proceed with laparotomy in view of the closed loop nature of the obstruction with possible small bowel resection. He was added onto the OR schedule for that day. On 07/19/22, an exploratory laparotomy, extensive lysis of adhesions was performed by Dr. Fam without complication. He was found to have extensive small bowel adhesions to the abdominal wall as well as interloop adhesions causing a complete obstruction. An NGT was inserted during the procedure for decompression. He was transferred to the medical/surgical floor. He had an uncomplicated recovery course. On POD #1, he felt significantly improved without nausea and he was less distended. His ostomy had stool output. His NGT was therefore removed and he was started on clear liquids. He was ambulated. His kern catheter was removed. He was advanced to a solid diet later that night. He remained inpatient for another night for pain control. On the day of discharge, he was tolerating a solid diet with good pain control on oral analgesics. His ostomy had good function and his abdomen was benign with a clean incision. He was discharged to home with VNA services on 07/22/22. He is to follow up in the office in 1-2 weeks. He has a follow up appointment scheduled with Dr. Terrell as well. Status at Discharge Functional status at discharge: independent ambulation Overall status at discharge: patient is progressing back to baseline Time Spent with Patient Time attestation: Total time managing care of this patient today ____ minutes. Discharge coordination time: Less than 30 minutes Quality: Safe Use of Opioids Does Pt have an Active Cancer Diagnosis on the Problem List?: Yes Opioid Measure Date for [facility] Report: 06/22/22 Opioid Measure Time for [facility] Report: 09:34 Quality: Stroke Does the patient have a stroke diagnosis?: No Physical Exam Vital Signs: Vital Signs: Last Vital Signs Temp 98.3 F 07/22/22 07:09 Pulse 70 07/22/22 07:09 Resp 18 07/22/22 07:09 BP 168/77 H 07/22/22 07:09 Pulse Ox 95 07/22/22 07:09 O2 Del Method Room Air 07/22/22 07:09 O2 Flow Rate 2 07/19/22 19:24 BMI result Body Mass Index 22.8 Const: General: comfortable, no acute distress and alert Orientation/consciousness: patient oriented x3 Resp: Effort & Inspection: normal respiratory effort GI: Other: ostomy pink, stool in appliance Inspection: No distended and Yes incision (clean) Palpation (GI): Soft to palpation, Tenderness to palpation present (GI) (mild, incisional), no guarding and not rigid Skin: General skin exam: no rashes or lesions noted Neuro: General: patient oriented x3 DS: Data Data Completed and Pending Completed studies during hospitalization [Text1]: Procedures Bypass Ileum to Cutaneous, Open Approach (04/26/22) Excision of Transverse Colon, Open Approach (04/26/22) Labs on day of discharge: Laboratory Results - last 24 hr 07/21/22 07/21/22 07/21/22 11:03 16:29 20:05 POC Glucose 192 H 211 H 199 H 07/22/22 07:07 POC Glucose 175 H Discharge Plan Discharge Anticipated Discharge Date/Time: 07/21/22 15:26 Patient Disposition: Home Health Service Discharge Diagnosis: SBO Referrals: Bimal Lepe MD [Primary Care Provider] - 1 Week Darion Fam MD [Physician] - 2 Weeks Discharge Medications: New oxycodone 5 mg tablet 5 mg PO Q4H PRN (Reason: pain (scale score 7-10)) Qty: 20 0RF Rx Instructions: Partial Fill upon patient request. Continued cholecalciferol (vitamin D3) 25 mcg (1,000 unit) capsule 25 mcg PO DAILY atorvastatin 10 mg tablet 10 mg PO BEDTIME 90 Days Qty: 90 1RF (DME) FreeStyle Test Strip See Rx Instructions .Route Qty: 100 3RF Rx Instructions: As directed (DME) BD Ultra Fine Floridalma Pen Needle 32 G x 4/32 See Rx Instructions .ROUTE .MEDSUPPLY Qty: 100 12RF Rx Instructions: Use as directed up to 4 times a day multivitamin Tablet 1 tab PO DAILY ondansetron 8 mg Tablet,Disintegrating 8 mg PO Q8H PRN (Reason: Nausea) Qty: 60 3RF dexamethasone 4 mg Tablet 4 mg PO BID Qty: 30 0RF Rx Instructions: for 2 days after chemo glipizide [Glucotrol XL] 5 mg Tablet Extended Release 24hr 5 mg PO DAILY Qty: 90 0RF pantoprazole 40 mg Tablet,Delayed Release (Dr/Ec) 40 mg PO DAILY cetirizine 10 mg Tablet 10 mg PO DAILY Januvia 100 mg tablet 50 mg PO DAILY 90 Days Qty: 90 1RF (DME) blood-glucose meter [FreeStyle Lite Meter] Kit Qty: 1 0RF Rx Instructions: As Directed insulin lispro [Humalog KwikPen Insulin] 100 unit/mL insulin pen 0 sliding scale dose SUBCUT QIDACHS Qty: 15 0RF Rx Instructions: Blood Sugar: <150 - 0 units 151-200 - 2 units 201-250 - 4 units 251-300 - 6 units 301-350 - 8 units >350 - 10 units (DME) pen needle, diabetic 32 gauge x 1/4 needle Qty: 100 0RF Rx Instructions: Use four times a day or as directed. (DME) lancets [FreeStyle Lancets] 28 gauge misc Qty: 100 0RF Rx Instructions: Test four times a day or as directed. lisinopril 20 mg tablet 20 mg PO DAILY (DME) FreeStyle Lite Strips Strip Qty: 100 12RF Rx Instructions: Test four times a day or as directed. Discharge Orders: Discharge Order (Routine); Ordered 07/22/22 Ordered By: Crystal Hernandez Diet: Advance to usual diet Activity on Discharge: No heavy lifting Stand Alone Forms: Patient Portal Discharge page Activity Restrictions/Additional Instructions: If the incision area is tender, you may apply an ice pack for short intervals (No more than 20 minutes on, followed by at least 20 minutes off). Do not apply heat. Do not use creams, lotions, or topical antibiotics unless instructed to do so by your surgeon. These can cause infection or allergic reaction. Ok to shower. You have sindy closing your incision and these will be removed approximately 10-14 days after surgery. NO HEAVY LIFTING (>10lbs) or strenuous activity. Follow up in office. ([phone]) Call Your Doctor If: -Your temperature exceeds 101.5? F -You experience excessive pain or swelling -You have an unexpected reaction to medication -You have excessive bleeding -You experience continued vomiting/nausea -Your incision begins to separate -Your incision shows signs of infection such as increased redness, swelling, excessive pain, drainage (light blood or clear fluid is normal) or heat Care Plan Goals: Return to baseline health and resume normal activities following recovery period. Health Concerns: SBO colon CA, s/p transverse colectomy with diverting loop ileostomy Plan of Treatment: s/p ex lap, extensive RAQUEL f/u in office Assessment: DOing well post op, improved
[2022-07-22] MEDS: Heparin Sodium,Porcine Flush 50 UNITS, 0.9 % Sodium Chloride Flush 5 ML IVFLUSH (09:20)
== END 2022-07-22 10:00 | disposition home health service (06) | DRG 224 ==
LOC: HO.ED 11:35 → HO.EDOVER 11:36 → HO.S3 13:00
PROVIDERS: Physician Assistant; Physician Assistant Surgical; Admitting Provider Surgery; Emergency Provider Student in an Organized Health Care Education/Training Program; PCP Internal Medicine; Visit Provider Surgery
PROC: 0DN80ZZ Release Small Intestine, Open Approach (ICD-10-PCS; CPT 49000; principal; 2022-07-19 13:00)
DX: K56.52 Intestinal adhesions [bands] with complete obstruction (principal); C18.4 Malignant neoplasm of transverse colon; E11.9 Type 2 diabetes mellitus without complications; E87.5 Hyperkalemia; E83.42 Hypomagnesemia; Z93.2 Ileostomy status; E78.00 Pure hypercholesterolemia, unspecified; Z20.822 Contact with and (suspected) exposure to COVID-19; Z79.4 Long term (current) use of insulin; Z79.84 Long term (current) use of oral hypoglycemic drugs; Z79.899 Other long term (current) drug therapy
CPT/HCPCS: 36415; 80048; 80076; 82947; 83690; 83735; 85025; 86850; 86900; 86901; 87635; 99284; C1758; J0131; J0330; J1100; J1170; J1642; J2250; J2370; J2405; J2795; J3010; J3475

== ENCOUNTER → 2022-08-05 10:38 | Outpatient (BNVA) | payer OTHER, MEDICARE, SELFPAY | PROVIDERS: PCP Internal Medicine; Visit Provider Surgery | DX: E11.65 Type 2 diabetes mellitus with hyperglycemia (principal); Z98.890 Other specified postprocedural states | CPT/HCPCS: 82947 ==

== ENCOUNTER → 2022-09-02 09:42 | Outpatient (BNVA) | payer OTHER, MEDICARE, SELFPAY | PROVIDERS: PCP Internal Medicine; Visit Provider Internal Medicine Endocrinology, Diabetes & Metabolism | DX: K56.609 Unspecified intestinal obstruction, unspecified as to partial versus complete obstruction (principal); E11.9 Type 2 diabetes mellitus without complications; E78.5 Hyperlipidemia, unspecified; Z98.890 Other specified postprocedural states; Z83.3 Family history of diabetes mellitus; Z79.899 Other long term (current) drug therapy | CPT/HCPCS: 82947 ==

== ENCOUNTER → 2022-09-03 08:28 | Outpatient (BNVA) | payer OTHER, MEDICARE, SELFPAY | PROVIDERS: PCP Internal Medicine; Visit Provider Registered Nurse Diabetes Educator ==

== ENCOUNTER → 2022-09-22 12:20 | Outpatient (BNVA) | payer OTHER, MEDICARE, SELFPAY | PROVIDERS: PCP Internal Medicine; Visit Provider Internal Medicine Endocrinology, Diabetes & Metabolism | DX: E11.65 Type 2 diabetes mellitus with hyperglycemia (principal); Z79.4 Long term (current) use of insulin | CPT/HCPCS: 82947 ==

== ENCOUNTER → 2022-09-30 14:26 | Outpatient (BNVA) | payer OTHER, MEDICARE, SELFPAY | PROVIDERS: PCP Internal Medicine; Visit Provider Dietitian, Registered | DX: E11.9 Type 2 diabetes mellitus without complications (principal) | CPT/HCPCS: 97802 ==

== ENCOUNTER 2022-10-08 06:16 | Outpatient (REF) | payer OTHER, MEDICARE, SELFPAY ==
[2022-10-08 07:31] LABS: Basophils Percent Auto 0.9 % (0-2); Eosinophils Absolute Auto 0.1 X10*3/uL (0.0-0.4); Hematocrit 36.3 % (42.0-52.0); Hemoglobin 11.5 g/dl (14.0-18.0); Imm Gran Abs Auto 0.03 X10*3/uL (0.00-0.03); Imm Gran Pct Auto 0.7 % (0.0-0.4); Lymphocytes Absolute Auto 1.4 X10*3/uL (1.2-4.9); Lymphocytes Percent Auto 29.3 % (20-40); MANUAL DIFF FLAG SCAN; Mean Corpuscular HGB Conc 31.7 g/dl (31.0-36.0); Mean Corpuscular Hemoglobin 27.1 pg (27.0-33.0); Mean Corpuscular Volume 85.6 fL (80.0-98.0); Monocytes Absolute Auto 0.7 X10*3/uL (0.1-1.2); Monocytes Percent Auto 16.1 % (2-11); Neutrophils Absolute Auto 2.3 x10*3/uL (2.0-8.3); PLT CLUMP 1; Red Blood Count 4.24 X10*6/uL (4.60-5.80); Red Cell Distribution Width 14.1 % (11.0-16.0); SCAN SMEAR FLAG 1
[2022-10-08 07:33] LABS: White Blood Count 4.6 X10*3/uL (4.8-10.8)
[2022-10-08 07:47] LABS: Appearance Urine Clear; Color Urine Yellow; Glucose Urine UA Negative (Negative); Leukocyte Esterase Urine Negative (Negative); Nitrite Urine Negative (Negative); PH 5.5 (5.0-9.0); Urine Blood Negative (Negative); Urine Ketones Negative (Negative); Urine Protein Trace mg/dL (Neg-Trace)
[2022-10-08 07:55] LABS: Estimated Average Glucose 160 mg/dL; Hemoglobin A1c % 7.2 %
[2022-10-08 08:19] LABS: Alanine Aminotransferase 26 U/L (0-40); Albumin Level 4.2 g/dL (3.5-5.0); Alkaline Phosphatase 90 U/L (39-117); Anion Gap 14 (12-20); Aspartate Amino Transferase 25 U/L (5-37); Bilirubin Total 0.5 mg/dL (0.0-1.0); Blood Urea Nitrogen 21 mg/dL (9-16); Calcium 9.8 mg/dL (8.4-10.2); Carbon Dioxide 22 mmol/L (22-29); Chloride 107 mmol/L (96-108); Cholesterol 168 mg/dL; Estimated Glomerular Filt Rate 50; Glucose Fasting 160 mg/dL (60-99); HDL Cholesterol 56 mg/dL; LDL Cholesterol Calculated 90 mg/dl; Potassium 4.3 mmol/L (3.3-5.1); Sodium 139 mmol/L (135-145); Total Protein 6.7 g/dL (6.5-8.0); Triglycerides 110 mg/dL
[2022-10-08 08:24] LABS: TSH reflex Free T4 1.34 uIU/mL (0.32-4.0); Vitamin D 25-OH Total 39.4 ng/mL (>30)
[2022-10-08 08:25] LABS: Creatinine Urine 154.15 mg/dL
== END 2022-10-08 06:17 | disposition home or self-care (01) ==
LOC: HO.LAB 06:16
PROVIDERS: PCP Internal Medicine; Visit Provider Internal Medicine
DX: E78.00 Pure hypercholesterolemia, unspecified (principal); E11.9 Type 2 diabetes mellitus without complications; I10 Essential (primary) hypertension; R30.0 Dysuria; E55.9 Vitamin D deficiency, unspecified
CPT/HCPCS: 36415; 80053; 80061; 81003; 82043; 82306; 83036; 84443; 85025

== ENCOUNTER 2022-10-13 14:41 | Outpatient (AMB) | payer OTHER, MEDICARE, SELFPAY ==
[2022-10-13 15:09] VITALS: BP 118/70; PULSE 62; O2SAT 97; BMI 27.5
--- NOTE | 2022-10-13 15:09 | MHC.PC.OV ---
Vital Signs 10/13/22 15:09 Height 5 ft 4 in Weight 160 lb BMI 27.5 BP 118/70 Blood Pressure Location Lt brachial Position Sitting Pulse 62 Pulse Source Pulse Oximeter Pulse Oximetry (%) 97 Oxygen Delivery Method Room Air Intake Visit Reasons: colon cancer, DM Make Up Artist Required: No Accompanied by: Self / Same As Patient Allergies No Known Allergies (No Known Allergies*) Allergy (Verified 05/13/25 13:26) Medication List - Last Reconciled 10/13/22 by Bimal Lepe MD alcohol swabs (BD Alcohol Swabs) 0 pad topical QID amlodipine 2.5 mg PO DAILY 90 days atorvastatin 10 mg PO BEDTIME 90 days [BD Ultra Fine Floridalma Pen Needle 32 G x Use as directed up to 4 times a day] blood sugar diagnostic (FreeStyle Test strips) As directed blood sugar diagnostic (FreeStyle Lite Strips) Test four times a day or as directed. blood-glucose meter (FreeStyle Lite Meter kit) As Directed cetirizine 10 mg PO DAILY cholecalciferol (vitamin D3) 25 mcg PO DAILY dexamethasone 4 mg PO BID flash glucose scanning reader (FreeStyle Keily 2 [place]) As directed flash glucose sensor (FreeStyle Keily 2 Sensor kit) As directed glucagon 3 mg/actuation (Baqsimi) 3 mg intranasal ONCE insulin lispro (Humalog KwikPen (U-100) Insulin) 2 - 10 sliding scale doses subcut QIDACHS insulin NPH isoph U-100 human (Humulin N NPH U-100 Insulin KwikPen) 10 units (0.1 mL) subcut QAM lancets (FreeStyle Lancets) Test four times a day or as directed. multivitamin 1 tab PO DAILY ondansetron 8 mg PO Q8H PRN pantoprazole 40 mg PO DAILY pen needle, diabetic Use four times a day or as directed. Tobacco use date assessed: 10/13/22 Fall risk assessment: No Falls in past year Dental Screening Dental Screen Date: 10/13/22 Did you have a dental visit in the last 12 months?: Yes Did you have a dental problem in the last 6 months where you did not have access to dental care?: No Was dental information given to patient?: Patient has dentist HPI colon cancer, DM HPI Details Patient comes in today for his follow up visit States that he feels okay He denies any headaches or dizziness Denies any chest pains, no SOB No nausea/vomiting, no abdominal pain No change in bowel habits noted Had his follow up labs done last week - to discuss his results [facility] Medical History Obstructive sleep apnea GERD without esophagitis Vitamin B [address] History of colon cancer Small bowel obstruction Coagulase negative Staphylococcus bacteremia Colon cancer Syncope Benign essential hypertension Overweight (BMI 25.0-29.9) Vitamin D deficiency Diabetes mellitus Pure hypercholesterolemia Surgical History Hx of surgical procedure (~08/02/23) History of colonoscopy (~2022) Status post laparotomy History of surgery Status post colon resection (~04/29/22) History of colonoscopy Family History Father Diabetes Hypertension Mother Diabetes Hypertension Mother Colon cancer Unknown Colon cancer Daughter Breast cancer Social History Household Members: Spouse Housing: House Are you a primary health care social worker to a significant other at home: No Do you presently have visiting nurse or other home services: No Alcohol intake: never Patient Tobacco Use Status: Never used Tobacco e-Cigarette/Vaping Use: Never Used Second Hand Smoke Exposure: No Advance Directives Date on File: 12/24/21 service: No Current occupational status: retired Cognitive needs: No Hearing needs: No Vision needs: Yes Questionnaire PHQ-9 Over the last 2 weeks, how often have you been bothered by any of the following problems? 1. Little interest or pleasure in doing things: not at all 2. Feeling down, depressed, or hopeless: not at all 3. Trouble falling or staying asleep, or sleeping too much: not at all 4. Feeling tired or having little energy: not at all 5. Poor appetite or overeating: not at all 6. Feeling bad about yourself - or that you are a failure or have let yourself or your family down: not at all 7. Trouble concentrating on things, such as reading the newspaper or watching television: not at all 8. Moving or speaking so slowly that other people could have noticed. Or the opposite - being so fidgety or restless that you have been moving around a lot more than usual: not at all 9. Thoughts that you would be better off or of hurting yourself in some way: not at all Total score: 0 Depression Screening Interpretation: Negative [id number] - PHQ-9 Billing: Yes Source: Developed by Drs. Cooper Beck, Gertrude Vega, Santo Tejada and colleagues, with an educational otto from [employer]. Thrive Questionnaire Date Thrive assessed: 10/13/22 I am a: Patient What is your living situation today?: I have a steady place to live Within the past 12 months, did the food you bought not last and you didn't have the money to get more?: Never true Within the past 12 months, did you worry whether your food would run out before you got money to buy more?: Never true Do you have trouble paying for medicines?: No Do you have trouble getting transportation to medical appointments?: No Do you have trouble paying your heating and electricity bill?: No Do you have trouble taking care of your child, family member or friend?: No Do you have trouble with day-to-day activities such as bathing, preparing meals, shopping, managing finances, etc.?: No Are you currently unemployed and looking for a job?: No Are you interested in more education?: No Currently or been in a relationship where the following occur: no concerns reported AUDIT C Alcohol Use Questionnaire (AUDIT-C) 1. How often do you have a drink containing alcohol?: Never 3. How often do you have six or more drinks on one occasion?: Never Total Score: 0 Score Reviewed/Action Taken: Yes AALIYAH-7 AMB Questionnaire AALIYAH-7 Date AALIYAH - 7 assessed: 10/13/22 Feeling nervous, anxious, or on edge: 0 = Not at all Not being able to stop or control worryin = Not at all Worrying too much about different things: 0 = Not at all Trouble relaxin = Not at all Being so restless that it is hard to sit still: 0 = Not at all Becoming easily annoyed or irritable: 0 = Not at all Feeling afraid as if something awful might happen: 0 = Not at all Total AALIYAH-7 score (0-4 normal; 5-9 mild; 10-14 moderate; 15-21 severe): 0 Source: Developed by Drs. Cooper Beck, Gertrude Vega, Santo Tejada and colleagues, with an educational otto from [employer]. Review of Systems Const Reports fatigue, Denies fever(s) and Denies headache(s) ENT Denies dysphagia, Denies dizziness, Denies otalgia, Denies headache(s), Denies odynophagia and Denies sore throat Card Denies chest pain, Denies palpitations and Denies dyspnea Resp Denies cough and Denies dyspnea GI Details: (+) diversion ileostomy - (+) stool in ileostomy bag Denies abdominal pain, Denies dysphagia, Denies heartburn, Denies nausea, Denies odynophagia and Denies vomiting Denies dysuria, Denies nocturia and Denies urinary frequency Neuro Denies dizziness and Denies headache(s) Endo Reports fatigue and Denies palpitations Physical exam (Primary Care) Vital Signs: Last Vital Signs Pulse 62 10/13/22 15:09 BP 118/70 10/13/22 15:09 Pulse Ox 97 10/13/22 15:09 Oxygen Delivery Method Room Air 10/13/22 15:09 BMI result Body Mass Index 27.5 Tobacco/Smoking Status: Tobacco use Status Tobacco use date assessed 10/13/22 10/13/22 15:14 Patient Tobacco Use Status Never used Tobacco 10/13/22 15:14 e-Cigarette/Vaping Use Never Used 10/13/22 15:14 PHQ-9: PHQ-9 Score PHQ-9: Total score 0 10/13/22 15:40 Depression Screening Interpretation: Negative Thrive Assessment: Date of Thrive Assessment Date Thrive assessed 10/13/22 10/13/22 15:14 Currently or been in a relationship where the following occur: no concerns reported Const General: no acute distress and alert HENMT Ears: TM's normal bilaterally and EAC's normal Throat: Yes posterior oropharynx normal and Yes tonsils normal (no TP congestion) Neck Neck: Yes no lymphadenopathy and Yes supple Resp Auscultation: clear to auscultation bilaterally, no rales and no wheezes Cardio Rate: regular rate Rhythm: regular rhythm Heart sounds: no murmurs GI Other: (+) diversion ileostomy, with stool noted in ileostomy bag Palpation (GI): Soft to palpation and nontender Extrem General: Yes no clubbing, cyanosis or edema Results Reviewed Results Reviewed: Laboratory Tests 10/08/22 10/08/22 10/08/22 06:37 06:37 07:08 WBC Hgb Hct Plt Count Sodium 139 Potassium 4.3 Creatinine 1.40 Estimated GFR 50 Fasting Glucose 160 H Hemoglobin A1c % 7.2 Calcium 9.8 AST 25 ALT 26 Triglycerides 110 Cholesterol 168 LDL Cholesterol, Calc 90 HDL Cholesterol 56 Carcinoembryonic Ag 25-OH Vitamin D Total 39.4 TSH 1.34 Urine pH 5.5 Ur Specific [place] 1.020 Urine Protein Trace Urine Glucose (UA) Negative Urine Blood Negative Microalb/Creat Ratio 10/08/22 10/08/22 10/11/22 07:08 11:07 13:05 WBC 5.4 Hgb 11.7 L Hct 34.9 L Plt Count 92 L Sodium Potassium Creatinine Estimated GFR Fasting Glucose Hemoglobin A1c % Calcium AST ALT Triglycerides Cholesterol LDL Cholesterol, Calc HDL Cholesterol Carcinoembryonic Ag 2.00 25-OH Vitamin D Total TSH Urine pH Ur Specific [place] Urine Protein Urine Glucose (UA) Urine Blood Microalb/Creat Ratio 22.0 Coding Level of Care Code Admin Sign Off/No Billing Diagnoses Small bowel obstruction K56.609 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 Colon location: transverse Type 2 diabetes mellitus with hyperglycemia, without long-term current use of insulin E11.65 Diabetes mellitus complication status: with hyperglycemia Diabetes mellitus core analysis operator insulin use: without core analysis operator use Diabetes mellitus type: type 2 Benign essential hypertension I10 Pure hypercholesterolemia E78.00 Vitamin D deficiency E55.9
== END 2022-10-13 16:00 | disposition home or self-care (01) ==
PROVIDERS: PCP Internal Medicine; Visit Provider Internal Medicine
DX: K56.609 Unspecified intestinal obstruction, unspecified as to partial versus complete obstruction (principal); C18.4 Malignant neoplasm of transverse colon; E11.65 Type 2 diabetes mellitus with hyperglycemia; I10 Essential (primary) hypertension; E78.00 Pure hypercholesterolemia, unspecified; E55.9 Vitamin D deficiency, unspecified
CPT/HCPCS: 99499

== ENCOUNTER → 2022-10-19 10:48 | Outpatient (BNVA) | payer OTHER, MEDICARE, SELFPAY | PROVIDERS: PCP Internal Medicine; Visit Provider Registered Nurse Diabetes Educator ==

== ENCOUNTER 2022-10-27 14:08 | Outpatient (REF) | payer OTHER, MEDICARE, SELFPAY | END 2022-10-27 14:09 | disposition home or self-care (01) | LOC: HO.CT 14:08 | PROVIDERS: PCP Internal Medicine; Visit Provider Internal Medicine | DX: C18.9 Malignant neoplasm of colon, unspecified (principal) | CPT/HCPCS: 74177; Q9967 ==

== ENCOUNTER → 2022-11-18 07:36 | Outpatient (REF) | payer OTHER, MEDICARE, SELFPAY ==
--- NOTE | 2022-11-18 07:38 | CA_ITS ---
Transthoracic Echocardiogram Patient (Last, First, Middle): Evgeny Samayoa, Gender: Male Date of : 1950 Age: 71 Procedure Date: 11/18/2022 Procedure Type: Transthoracic Echocardiogram Location: OP Height: 162.56 cm Weight: 76.2 kg BSA: 1.82 m2 Heart Rate: 73 bpm BP: 145 / 75 mmHg Supervisor Publications: QUETA Jacob MD: Bimal Lepe MD Emergency Vehicle Dispatcher: Niraj Mcclain MD Symptoms: R60.9 - Edema, unspecified Study Quality: Good ECG Rhythm: Sinus Conclusions: - Essentially normal study Findings Left Ventricle Normal left ventricular size, thickness, and systolic function. The visually estimated ejection fraction is between 60-65%. Spectral Doppler is indicative of a normal filling pattern. Prominent LV false tendon. Peak GLS is -20.2%, within normal limits. Right Ventricle Normal right ventricular cavity size and systolic function. Atria Both atria are normal in size. There is no evidence of interatrial shunt. Aortic Valve Normal aortic valve structure and function. There is no aortic valve stenosis. There is no aortic valve regurgitation. Mitral Valve Normal mitral valve structure and function. There is trace mitral valve regurgitation. There is no mitral valve stenosis. Pulmonic Valve The pulmonic valve is likely normal. Tricuspid Valve Normal tricuspid valve structure. Tricuspid regurgitation envelope is inadequate for calculation of right ventricular systolic pressure. Normal right atrial pressure. Great Vessels All visible segments of the aorta are normal in size. The pulmonary artery was not well visualized. Venous The inferior vena cava is normal in size and collapses greater than 50% with inspiration. Pericardium/Pleural There is no evidence of pericardial effusion. Prior Study Comparison No prior study available for comparison. Measurements 2D Linear Measurements IVSd: 1.25 0.6-0.9/0.6-1.0 cm LVIDd: 3.79 3.9-5.3/4.2-5.9 cm LVIDd Index: 2.08 2.4-3.2/2.2-3.1 cm/m2 LVIDs: 2.46 2.0-3.6 cm LVPWd: 0.93 0.7-1.1 cm LA Diam: 3.50 2.7-3.8/3.0-4.0 cm LAIDs Index: 1.92 1.5-2.3 cm/m2 LV Mass: 164.89 67-162/88-224 g LV Mass Index: 90.60 43-95/49-115 g/m2 LVOT Diam: 2.00 3.0+(-)1.3 cm 2D Systolic Function EF 4C: 64.60 >55% EF 2C: 57.40 >55% EF BiP: 59.50 >55% Mitral Valve MV Pk E: 0.68 MV PK A: 0.79 MV Decel Time: 192.00 E/A: 0.90 E'Lateral: 10.00 E'Medial: 6.96 E/E' Med: 9.70 E/E' Lat: 6.80 PHT: 56.00 MVA PHT: 3.93 Decel [place]: 3.53 Aortic Valve AoV Pk Kiet: 1.33 AoV Mn Kiet: 0.98 AoV VTI: 0.30 AoV Pk Grad: 7.00 Aov Mn Grad: 4.00 LUCIANO Cont.VTI: 2.16 LVOT LVOT Pk Kiet: 0.99 LVOT Mn Kiet: 0.67 LVOT VTI: 0.21 LVOT Pk Grad: 4.00 LVOT Mn Grad: 2.00 LVOT Diam: 2.00 LVOT Area: 3.14 Diastolic Function MV Pk E: 0.68 MV Pk A: 0.79 E/A: 0.90 E'Medial: 6.96 E/E' Med: 9.70 E' Laterial: 10.00 E/E' Lat: 6.80 Right Ventricle TAPSE (mm): 22.60 TVS' Kiet: 14.10 Tricuspid Valve RA Press: 3.00 Great Vessels Aorta Sinus of Valsalva: 3.60 2.0-3.5 cm Ao Asc: 3.70 2.1-3.4 cm Pulmonary Valve PV Pk Kiet: 1.09 Peak PV Grad: 5.00 LA Pk Kiet: 1.93 Updated in Other Vendor System with Status of Final Niraj Mcclain MD electronically signed on 11/18/2022 4:14:44 PM with status of Final
[2022-11-18 08:56] LABS: Basophils Percent Auto 0.8 % (0-2); Eosinophils Absolute Auto 0.1 X10*3/uL (0.0-0.4); Eosinophils Percent Auto 2.6 % (0-4); Hemoglobin 10.8 g/dl (14.0-18.0); Imm Gran Abs Auto 0.03 X10*3/uL (0.00-0.03); Imm Gran Pct Auto 0.8 % (0.0-0.4); Lymphocytes Absolute Auto 1.1 X10*3/uL (1.2-4.9); Lymphocytes Percent Auto 28.1 % (20-40); MANUAL DIFF FLAG SCAN; Mean Corpuscular HGB Conc 32.7 g/dl (31.0-36.0); Mean Corpuscular Hemoglobin 27.1 pg (27.0-33.0); Mean Corpuscular Volume 82.9 fL (80.0-98.0); Mean Platelet Volume 9.8 fL (9.4-12.4); Monocytes Absolute Auto 0.8 X10*3/uL (0.1-1.2); Monocytes Percent Auto 21.3 % (2-11); Neutrophils Absolute Auto 1.8 x10*3/uL (2.0-8.3); Neutrophils Percent Auto 46.4 % (45-73); Red Blood Count 3.98 X10*6/uL (4.60-5.80); Red Cell Distribution Width 14.3 % (11.0-16.0); SCAN SMEAR FLAG 1; White Blood Count 3.8 X10*3/uL (4.8-10.8)
[2022-11-18 08:58] LABS: Platelet Count 85 X10*3/uL (160-400)
[2022-11-18 09:11] LABS: Alanine Aminotransferase 28 U/L (0-40); Alkaline Phosphatase 105 U/L (39-117); Anion Gap 18 (12-20); Aspartate Amino Transferase 31 U/L (5-37); Bilirubin Total 0.4 mg/dL (0.0-1.0); Blood Urea Nitrogen 17 mg/dL (9-16); Calcium 9.4 mg/dL (8.4-10.2); Carbon Dioxide 20 mmol/L (22-29); Chloride 107 mmol/L (96-108); Estimated Glomerular Filt Rate 52; Glucose Random 255 mg/dL (60-115); Magnesium 1.5 mg/dL (1.6-2.6); Potassium 4.8 mmol/L (3.3-5.1); Sodium 140 mmol/L (135-145); Total Protein 6.4 g/dL (6.5-8.0)
[2022-11-18 15:30] LABS: SLIDE REVIEW VERIFIED
== END ==
LOC: HO.CARD 07:36
PROVIDERS: Internal Medicine; PCP Internal Medicine; Visit Provider Internal Medicine
DX: C18.9 Malignant neoplasm of colon, unspecified (principal); H34.12 Central retinal artery occlusion, left eye; R60.9 Edema, unspecified
CPT/HCPCS: 36415; 80053; 83735; 85025; 93306; 93356

== ENCOUNTER → 2022-11-18 07:38 | Outpatient (BNV) | payer OTHER, MEDICARE, SELFPAY | PROVIDERS: PCP Internal Medicine; Visit Provider Internal Medicine Cardiovascular Disease | DX: R60.9 Edema, unspecified (principal) | CPT/HCPCS: 93306 ==

== ENCOUNTER 2022-12-09 10:47 | Outpatient (AMB) | payer OTHER, MEDICARE, SELFPAY ==
--- NOTE | 2022-12-09 11:26 | A.OFFVIS_ITS ---
Intake Intake Visit Reasons: f/u Type 2 DM Allergies No Known Allergies [No Known Allergies*] Allergy (Verified 11/22/22 08:32) HPI Comprehensive Diabetes Asmnt Most Recent Diabetes Results: Microalb/Creat Ratio 22.0 ug/mg cr 10/08/22 Cholesterol 168 mg/dL 10/08/22 HDL Cholesterol 56 mg/dL 10/08/22 Triglycerides 110 mg/dL 10/08/22 Creatinine 1.44 mg/dL (0.5-1.4) H 12/03/22 Blood Urea Nitrogen 18 mg/dL (9-16) H 12/03/22 Sodium 141 mmol/L (135-145) 12/03/22 Potassium 5.0 mmol/L (3.3-5.1) 12/03/22 Chloride 110 mmol/L (96-108) H 12/03/22 Carbon Dioxide 23 mmol/L (22-29) 12/03/22 Calcium 10.1 mg/dL (8.4-10.2) 12/03/22 AST 31 U/L (5-37) 12/03/22 ALT 27 U/L (0-40) 12/03/22 Total Protein 6.7 g/dL (6.5-8.0) 12/03/22 Albumin 4.2 g/dL (3.5-5.0) 12/03/22 [facility] Medical History Benign essential hypertension Coagulase negative Staphylococcus bacteremia Colon cancer Diabetes mellitus Overweight (BMI 25.0-29.9) Pure hypercholesterolemia Small bowel obstruction Syncope Vitamin D deficiency Surgical History History of colonoscopy History of surgery Status post colon resection (~04/29/22) Status post laparotomy Family History Father Diabetes Hypertension Mother Diabetes Hypertension Mother Colon cancer Unknown Colon cancer Daughter Breast cancer Social History Household Members: Unknown / Unable to assess Housing: House Do you presently have visiting nurse or other home services: Yes (unsure) Unable to assess alcohol history related to: Unknown Alcohol intake: never Patient Tobacco Use Status: Never used Tobacco e-Cigarette/Vaping Use: Never Used Second Hand Smoke Exposure: No Advance Directives Date on File: 12/24/21 service: No Current occupational status: retired Cognitive needs: No Hearing needs: No Vision needs: Yes Assessment & Plan Assessment & Plan (1) Diabetes mellitus: Code(s): E11.9 - Type 2 diabetes mellitus without complications Qualifiers: Diabetes mellitus type: type 2 Diabetes mellitus penitentiary insulin use: without terminal carman use Diabetes mellitus complication status: with hyperglycemia Qualified Code(s): E11.65 - Type 2 diabetes mellitus with hyperglycemia Plan: Personal Continuous Glucose Monitor: Patients CGM information reviewed Reviewed patient's sensor data: Hypoglycemia: ? 0% Hyperglycemia:? 49% Time in Range:? 51% Average glucose for the last 2 weeks?184 mg/dL Pt reported his insulin plan that he is using is: <150 no insulin 151-200 6 units, during chemo 10 units 201-250 8 units, during chemo 12 units 251-300 10 units, during chemo 14 units Data for the last 2 weeks is without chemotherapy Patient having increase in glucose levels starting at approximately 07:00 and lasting throughout the day Recommended to patient to increase sliding scale before meals she 151-200 7 units 201-250 9 units 251-300 10 units Did not increase chemo sliding scale since patient was not on chemotherapy for the last 2 weeks Showed patient how to interpret average glucose on Keily reader Patient given target goal handout Patient is due for his next A1c, has appointment with Dr. Corral on 12/23/2022 Reviewed how to interpret trend arrows Reminded patient that to check finger sticks if symptoms do not match sensor reading. Discussed lag time between finger stick and sensor data.? Patient able to insert sensor independently at home without issue.? Patient Instructions: Insulin plan without Chemo <150 no insulin 151-200 7 units 201-250 9 units 251-300 10 units Coding Level of Care Code Est Pt Level 1 (69857) Diagnoses Diabetes mellitus E11.65 Diabetes mellitus type: type 2 Diabetes mellitus penitentiary insulin use: without penitentiary use Diabetes mellitus complication status: with hyperglycemia
== END 2022-12-09 11:34 | disposition home or self-care (01) ==
PROVIDERS: PCP Internal Medicine; Visit Provider Registered Nurse Diabetes Educator
DX: E11.65 Type 2 diabetes mellitus with hyperglycemia (principal)
CPT/HCPCS: 99211

== ENCOUNTER → 2022-12-09 10:47 | Outpatient (BNVA) | payer OTHER, MEDICARE, SELFPAY | PROVIDERS: PCP Internal Medicine; Visit Provider Registered Nurse Diabetes Educator ==

== ENCOUNTER 2022-12-16 14:59 | Outpatient (AMB) | payer OTHER, MEDICARE, SELFPAY ==
--- NOTE | 2022-12-16 15:02 | A.OFFVIS_ITS ---
Intake Vital Signs 12/16/22 15:07 Height 5 ft 4 in Weight 167 lb BMI 28.7 Intake Visit Reasons: 3 mth follow up loop small bowel obstruction Intake Note: This patient presents for an assessment for a three month follow-up loop SBO. Patient c/o; reports no complaints at this time. 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 blood-glucose meter (FreeStyle Lite Meter kit) As Directed cetirizine 10 mg PO DAILY cholecalciferol (vitamin D3) 25 mcg PO DAILY dexamethasone 4 mg PO BID flash glucose scanning reader (FreeStyle Keily 2 [place]) As directed flash glucose sensor (FreeStyle Keily 2 Sensor kit) As directed glucagon 3 mg/actuation (Baqsimi) 3 mg intranasal ONCE insulin lispro (Humalog KwikPen (U-100) Insulin) subcutaneously 3 times a day; Use up to 20 units before meals when on dexamethasone insulin NPH isoph U-100 human (Humulin N NPH U-100 Insulin KwikPen) 10 units (0.1 mL) subcut QAM lancets (FreeStyle Lancets) Test four times a day or as directed. magnesium oxide 400 mg PO DAILY multivitamin 1 tab PO DAILY ondansetron 8 mg PO Q8H PRN pantoprazole 40 mg PO DAILY pen needle, diabetic Use four times a day or as directed. HPI 3 mth follow up loop small bowel obstruction HPI Details 71-year-old male here for follow-up. 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 He had been undergoing chemotherapy but had to undergo another laparotomy last June, for a closed-loop obstruction of the small bowel secondary to adhesions. He had extensive lysis of adhesions at that time He still has a diverting loop ileostomy after transverse colon resection because of the significant edema of the colon along with disparity of the proximal and distal anastomotic limbs. He says his stoma has been functioning well. He has never had any colonoscopy in the past. He is currently on all FOLFOX [address] regimen [address] regularly sees Dr. Terrell of Oncology. He says he gets some body malaise and weakness for about 2-3 days during his chemotherapy. COUNT INCLUDES THE [facility] Medical History (Updated 12/16/22 @ 15:17 by Darion Fam MD) Benign essential hypertension Coagulase negative Staphylococcus bacteremia Colon cancer Diabetes mellitus History of colon cancer Overweight (BMI 25.0-29.9) Pure hypercholesterolemia Small bowel obstruction Syncope Vitamin D deficiency Surgical History History of colonoscopy History of surgery Status post colon resection (~04/29/22) Status post laparotomy Family History Father Diabetes Hypertension Mother Diabetes Hypertension Mother Colon cancer Unknown Colon cancer Daughter Breast cancer Social History Household Members: Unknown / Unable to assess Housing: House Do you presently have visiting nurse or other home services: Yes (unsure) Unable to assess alcohol history related to: Unknown Alcohol intake: never Patient Tobacco Use Status: Never used Tobacco e-Cigarette/Vaping Use: Never Used Second Hand Smoke Exposure: No Advance Directives Date on File: 12/24/21 service: No Current occupational status: retired Cognitive needs: No Hearing needs: No Vision needs: Yes Review of Systems Const Denies chills and Denies fever(s) Card Denies chest pain, Denies dyspnea and Denies dyspnea on exertion Resp Denies cough, Denies dyspnea and Denies dyspnea on exertion GI Denies hematochezia and Denies change in bowel habits Denies hematuria and Denies difficulty urinating Musc Denies back pain and Denies limited range of motion Neuro Denies focal weakness and Denies convulsions Psych Denies depression and Denies mood swings Physical Exam Const General: comfortable and no acute distress Orientation/consciousness: patient oriented x3 Neck Neck: Yes no lymphadenopathy Resp Auscultation: clear to auscultation bilaterally Cardio Rhythm: regular rhythm GI Other: Loop ileostomy in the right side functioning well, midline incision well healed Palpation (GI): Soft to palpation, nontender and no guarding Neuro General: patient oriented x3 Assessment & Plan Assessment & Plan (1) History of colon cancer: Code(s): Z85.038 - Personal history of other malignant neoplasm of large intestine Plan: He is currently undergoing chemotherapy and his last cycle will be on December 28. I will schedule him for a colonoscopy thereafter as his last colonoscopy was in 2014. I reviewed with him the technique of this procedure and explained the risks, benefits, and alternatives. He says he understands and wants to proceed He does not need any bowel prep for his colonoscopy in view of his diverting loop ileostomy. His was with him during the visit. Overall, he has been doing well after his 2 surgeries in April and June of this year. Coding Level of Care Code Est Pt Level 4 (23067) Diagnoses History of colon cancer Z85.038
[2022-12-16 15:07] VITALS: BMI 28.7
== END 2022-12-16 15:15 | disposition home or self-care (01) ==
PROVIDERS: PCP Internal Medicine; Visit Provider Surgery
DX: Z85.038 Personal history of other malignant neoplasm of large intestine (principal)
CPT/HCPCS: 99214

== ENCOUNTER → 2022-12-16 14:59 | Outpatient (BNVA) | payer OTHER, MEDICARE, SELFPAY | PROVIDERS: PCP Internal Medicine; Visit Provider Surgery ==

== ENCOUNTER 2022-12-23 12:37 | Outpatient (AMB) | payer OTHER, MEDICARE, SELFPAY ==
--- NOTE | 2022-12-23 12:51 | MHC.OFFVIS ---
Intake Vital Signs 12/23/22 12:52 Height 5 ft 4 in Weight 166 lb BMI 28.5 BP 125/66 Blood Pressure Location Lt brachial Position Sitting Pulse 66 Pulse Source Pulse Oximeter Intake Visit Reasons: f/u Type 2 DM Intake Note: Patient presents today to follow up on Type 2 Diabetes Mellitus. Patient receives DME supplies through: Last Diabetic Eye exam: 10/2022 Last Podiatry Visit: None Random Glucose: 226 mg/dl HgA1C:7.5% Central Office Mechanic Required: No Accompanied by: Spouse Allergies No Known Allergies [No Known Allergies*] Allergy (Verified 12/23/22 12:56) Medication List - Last Reconciled 12/23/22 by Cooper Corral MD alcohol swabs (BD Alcohol Swabs) 0 pad topical QID amlodipine 2.5 mg PO DAILY 90 days atorvastatin 10 mg PO BEDTIME 90 days [BD Ultra Fine [place] Pen Needle 32 G x Use as directed up to 4 times a day] blood sugar diagnostic (FreeStyle Test strips) As directed blood sugar diagnostic (FreeStyle Lite Strips) Test four times a day or as directed. blood-glucose meter (FreeStyle Lite Meter kit) As Directed cetirizine 10 mg PO DAILY cholecalciferol (vitamin D3) 25 mcg PO DAILY dexamethasone 4 mg PO BID flash glucose scanning reader (FreeStyle Keily 2 [place]) As directed flash glucose sensor (FreeStyle Keily 2 Sensor kit) As directed glucagon 3 mg/actuation (Baqsimi) 3 mg intranasal ONCE insulin lispro (Humalog KwikPen (U-100) Insulin) subcutaneously 3 times a day; Use up to 20 units before meals when on dexamethasone insulin NPH isoph U-100 human (Humulin N NPH U-100 Insulin KwikPen) 10 units (0.1 mL) subcut QAM lancets (FreeStyle Lancets) Test four times a day or as directed. magnesium oxide 400 mg PO DAILY multivitamin 1 tab PO DAILY ondansetron 8 mg PO Q8H PRN pantoprazole 40 mg PO DAILY pen needle, diabetic Use four times a day or as directed. HPI HPI Comments History of Present Illness Details 71 YO M who is seen in consultation for T2DM at the request of PCP. Initially diagnosed with T2DM in 10 yrs . Was initially started on treatment with []. Current regimen Humalog 6 units is given for point care 81-150, 14 units for point of care 151-200 up to 18 units for point care greater >250 . NPH 10 units in a.m. Checks sugars 4 times per day. Average sugar: 197 Is receiving Dexamethasone with chemo receiving next dose next wk Keily download shows he is using the sensor 98% of the time with average glucose of 175 and GMI of 7.5 variability 27.2%. 58% range with 34% hyperglycemia 8% very hyperglycemic no hypoglycemia Not Reports low sugars . Family history of T2DM in mother, father and sister . Has eyes checked yearly, last eye exam , denies retinopathy. Denies neuropathy, not sees podiatry. Denies nephropathy, on PEDRO/ARB.]. Has HLD, on statin. . Denies CAD. occasionally Had diabetes education. [facility] Medical History (Updated 12/16/22 @ 15:17 by Darion Fam MD) Benign essential hypertension Coagulase negative Staphylococcus bacteremia Colon cancer Diabetes mellitus History of colon cancer Overweight (BMI 25.0-29.9) Pure hypercholesterolemia Small bowel obstruction Syncope Vitamin D deficiency Surgical History History of colonoscopy History of surgery Status post colon resection (~04/29/22) Status post laparotomy Family History Father Diabetes Hypertension Mother Diabetes Hypertension Mother Colon cancer Unknown Colon cancer Daughter Breast cancer Social History Household Members: Unknown / Unable to assess Housing: House Do you presently have visiting nurse or other home services: Yes (unsure) Unable to assess alcohol history related to: Unknown Alcohol intake: never Patient Tobacco Use Status: Never used Tobacco e-Cigarette/Vaping Use: Never Used Second Hand Smoke Exposure: No Advance Directives Date on File: 12/24/21 service: No Current occupational status: retired Cognitive needs: No Hearing needs: No Vision needs: Yes Physical Exam Vital Signs: Last Vital Signs Pulse 66 12/23/22 12:52 BP 125/66 12/23/22 12:52 BMI result Body Mass Index 28.5 Absence of Cushingoid features. Absence of acromegalic features. Neck exam reveals nl size thyroid about 15 gms. No thyroid nodules palpable. No carotid bruits present. Lungs CTA. Heart S1 S2, Reg R/R. No M/R/ G. Skin exam reveals absence of vitiligo or acanthosis nigricans. Abdominal exam reveals Soft NT/ND with NA BS. No organomegaly present. Neck Other: . Extrem Other: Visual exam of foot performed. No ulcerations or open lesions. No onchomycosis, no callouses.Pulses 2 + distally Sensation intact to monofilament exam. Vibratory sensation sensed is intact with 128 Hz tuning fork Results AMB Hemoglobin A1c AMB Hemoglobin A1c 7.5 % Last Edit by Doretha Vásquez on 12/23/22 13:17 Results Reviewed Results Reviewed: 12/23/22 13:04 Glucose, Whole Blood Routine Laboratory Last Values Glucose (Clinic) 226 mg/dL (60-115) H 12/23/22 13:04 Hgb A1c (Clinic) 7.5 % (4.0-6.0) H 12/23/22 13:16 Assessment & Plan Assessment & Plan (1) Diabetes mellitus: Code(s): E11.9 - Type 2 diabetes mellitus without complications Qualifiers: Diabetes mellitus complication status: with hyperglycemia Diabetes mellitus skilled nursing insulin use: without skilled nursing use Diabetes mellitus type: type 2 Qualified Code(s): E11.65 - Type 2 diabetes mellitus with hyperglycemia Plan: This is a 71-year-old male with history of type 2 diabetes exacerbated by steroids currently being treated with NPH and prandial insulin with improving fair glycemic control and no known microvascular or macrovascular complications. Plan is to have the patient increase the NPH to 14 units in AM and Humalog 14 units for point of care 151-200 up to 18 units for point care greater >250. Once chemotherapy is completed dexamethasone was discontinued after last round of chemotherapy next week, patient was instructed to stop the NPH and only take Humalog for point care >200. If he has persistent hyperglycemia off the dexamethasone, we could consider use of a alternative therapy like a GLP 1 agonist Orders: Orders AMB Hemoglobin A1c Today E11.9 - Type 2 diabetes mellitus without complications Coding Level of Care Code Est Pt Level 4 (11051) Diagnoses Diabetes mellitus E11.65 Diabetes mellitus complication status: with hyperglycemia Diabetes mellitus skilled nursing insulin use: without intermediate designer use Diabetes mellitus type: type 2
[2022-12-23 12:52] VITALS: BP 125/66; PULSE 66; BMI 28.5
[2022-12-23 13:09] LABS: Glucose, Whole Blood 226 mg/dL (60-115)
== END 2022-12-23 13:18 | disposition home or self-care (01) ==
PROVIDERS: PCP Internal Medicine; Visit Provider Internal Medicine Endocrinology, Diabetes & Metabolism
DX: E11.9 Type 2 diabetes mellitus without complications (principal); E11.65 Type 2 diabetes mellitus with hyperglycemia
CPT/HCPCS: 99214

== ENCOUNTER → 2022-12-23 12:37 | Outpatient (BNVA) | payer OTHER, MEDICARE, SELFPAY | PROVIDERS: Visit Provider Internal Medicine Endocrinology, Diabetes & Metabolism | DX: E11.65 Type 2 diabetes mellitus with hyperglycemia (principal); C18.9 Malignant neoplasm of colon, unspecified; Z79.4 Long term (current) use of insulin | CPT/HCPCS: 82947; 83036 ==

== ENCOUNTER 2023-01-07 06:21 | Outpatient (REF) | payer OTHER, MEDICARE, SELFPAY ==
[2023-01-07 06:35] LABS: MANUAL DIFF FLAG NO
[2023-01-07 08:12] LABS: Basophils Percent Auto 0.8 % (0-2); Eosinophils Absolute Auto 0.2 X10*3/uL (0.0-0.4); Eosinophils Percent Auto 2.9 % (0-4); Imm Gran Abs Auto 0.14 X10*3/uL (0.00-0.03); Imm Gran Pct Auto 2.7 % (0.0-0.4); Lymphocytes Absolute Auto 1.6 X10*3/uL (1.2-4.9); Mean Corpuscular HGB Conc 32.4 g/dl (31.0-36.0); Mean Corpuscular Hemoglobin 27.5 pg (27.0-33.0); Mean Corpuscular Volume 84.9 fL (80.0-98.0); Monocytes Absolute Auto 0.9 X10*3/uL (0.1-1.2); Monocytes Percent Auto 17.6 % (2-11); NRBC Pct Auto 0.4 /100WBC (0.0-0.2); Neutrophils Absolute Auto 2.4 x10*3/uL (2.0-8.3); Platelet Count 126 X10*3/uL (160-400); Red Blood Count 4.36 X10*6/uL (4.60-5.80); Red Cell Distribution Width 14.4 % (11.0-16.0); White Blood Count 5.2 X10*3/uL (4.8-10.8)
[2023-01-07 08:19] LABS: Estimated Average Glucose 166 mg/dL; Hemoglobin A1c % 7.4 % (<6.0)
[2023-01-07 08:40] LABS: Alanine Aminotransferase 27 U/L (0-40); Albumin Level 4.3 g/dL (3.5-5.0); Alkaline Phosphatase 127 U/L (39-117); Anion Gap 13 (12-20); Aspartate Amino Transferase 29 U/L (5-37); Bilirubin Total 0.4 mg/dL (0.0-1.0); Blood Urea Nitrogen 23 mg/dL (9-16); Calcium 9.6 mg/dL (8.4-10.2); Carbon Dioxide 24 mmol/L (22-29); Chloride 108 mmol/L (96-108); Cholesterol 178 mg/dL (<200); Estimated Glomerular Filt Rate 50; Glucose Fasting 170 mg/dL (60-99); HDL Cholesterol 75 mg/dL (>40); LDL Cholesterol Calculated 85 mg/dL (<100); Sodium 140 mmol/L (135-145); Total Protein 6.7 g/dL (6.5-8.0); Triglycerides 92 mg/dL (<150)
== END 2023-01-07 06:22 | disposition home or self-care (01) ==
LOC: HO.LAB 06:21
PROVIDERS: PCP Internal Medicine; Visit Provider Internal Medicine
DX: I10 Essential (primary) hypertension (principal); E78.00 Pure hypercholesterolemia, unspecified; E11.9 Type 2 diabetes mellitus without complications
CPT/HCPCS: 36415; 80053; 80061; 83036; 85025

== ENCOUNTER 2023-01-12 12:31 | Outpatient (AMB) | payer OTHER, MEDICARE, SELFPAY ==
--- NOTE | 2023-01-12 12:47 | A.OFFPC_ITS ---
Vital Signs 01/12/23 12:49 Height 5 ft 4 in Weight 164 lb 6 oz BMI 28.2 BP 138/76 Blood Pressure Location Lt brachial Position Sitting Pulse 72 Pulse Source Pulse Oximeter Pulse Oximetry (%) 98 Oxygen Delivery Method Room Air Intake Visit Reasons: F/Up colon cancer, ELIERO Director Market Intelligence Required: No Accompanied by: Self / Same As Patient Allergies No Known Allergies [No Known Allergies*] Allergy (Verified 08/12/23 18:37) Medication List - Last Reconciled 08/15/23 by Bimal Lepe MD amlodipine 2.5 mg PO DAILY 90 days atorvastatin 10 mg PO BEDTIME 90 days [BD Ultra Fine [place] Pen Needle 32 G x Use as directed up to 4 times a day] blood sugar diagnostic (FreeStyle Test strips) As directed blood sugar diagnostic (FreeStyle Lite Strips) Test four times a day or as directed. blood-glucose meter (FreeStyle Lite Meter kit) As Directed cetirizine 10 mg PO DAILY cholecalciferol (vitamin D3) 25 mcg PO DAILY cyanocobalamin (vitamin B-12) (Vitamin B-12) 50 mcg PO DAILY docusate sodium (Colace) 100 mg PO DAILY flash glucose scanning reader (FreeStyle Keily 2 [place]) As directed flash glucose sensor (FreeStyle Keily 2 Sensor kit) APPLY ONCE EVERY 14 DAYS DIRECTED insulin lispro (Humalog KwikPen (U-100) Insulin) subcutaneously 3 times a day; Use up to 20 units before meals when on dexamethasone lancets (FreeStyle Lancets) Test four times a day or as directed. magnesium oxide 400 mg PO DAILY 90 days oxycodone-acetaminophen 5-325 mg (Percocet) 1 tab PO Q4-6H PRN pantoprazole 40 mg PO DAILY@0630 pen needle, diabetic Use four times a day or as directed. Tobacco use date assessed: 01/12/23 Fall risk assessment: No Falls in past year Last assessed Fall Risk: 01/12/23 Dental Screening Dental Screen Date: 01/12/23 Did you have a dental visit in the last 12 months?: No Did you have a dental problem in the last 6 months where you did not have access to dental care?: No Was dental information given to patient?: Patient has dentist HPI F/Up colon cancerGREY HPI Details Patient comes in today for his follow up visit States that he feels okay He completed his adjuvant treatment for colon cancer last month (November 2022) and is scheduled for repeat colonoscopy with Dr. Fam in a couple of days He denies any headaches or dizziness Denies any chest pains, no SOB No nausea/vomiting, no abdominal pain No change in bowel habits noted Needs a couple of his Rx refilled He had his follow up labs done a few days ago - to discuss his results [facility] Medical History (Updated 08/15/23 @ 03:00 by Bimal Lepe MD) GERD without esophagitis Vitamin B [address] History of colon cancer Small bowel obstruction Coagulase negative Staphylococcus bacteremia Colon cancer Syncope Benign essential hypertension Overweight (BMI 25.0-29.9) Vitamin D deficiency Diabetes mellitus Pure hypercholesterolemia Surgical History Hx of surgical procedure (~08/02/23) History of colonoscopy (~2022) Status post laparotomy History of surgery Status post colon resection (~04/29/22) History of colonoscopy Family History Father Diabetes Hypertension Mother Diabetes Hypertension Mother Colon cancer Unknown Colon cancer Daughter Breast cancer Social History Household Members: Spouse Housing: House Are you a primary acute care clinical nurse specialist to a significant other at home: No Do you presently have visiting nurse or other home services: No Unable to assess alcohol history related to: Unknown Alcohol intake: never Patient Tobacco Use Status: Never used Tobacco e-Cigarette/Vaping Use: Never Used Second Hand Smoke Exposure: No Advance Directives Date on File: 12/24/21 service: No Current occupational status: retired Cognitive needs: No Hearing needs: No Vision needs: Yes Questionnaire PHQ-9 Over the last 2 weeks, how often have you been bothered by any of the following problems? 1. Little interest or pleasure in doing things: not at all 2. Feeling down, depressed, or hopeless: not at all 3. Trouble falling or staying asleep, or sleeping too much: not at all 4. Feeling tired or having little energy: not at all 5. Poor appetite or overeating: not at all 6. Feeling bad about yourself - or that you are a failure or have let yourself or your family down: not at all 7. Trouble concentrating on things, such as reading the newspaper or watching television: not at all 8. Moving or speaking so slowly that other people could have noticed. Or the opposite - being so fidgety or restless that you have been moving around a lot more than usual: not at all 9. Thoughts that you would be better off or of hurting yourself in some way: not at all Total score: 0 Depression Screening Interpretation: Negative 25660 - PHQ-9 Billing: Yes Source: Developed by Drs. Cooper Beck, Gertrude Vega, Santo Tejada and colleagues, with an educational otto from [employer]. Thrive Questionnaire Date Thrive assessed: 01/12/23 I am a: Patient What is your living situation today?: I have a steady place to live Within the past 12 months, did the food you bought not last and you didn't have the money to get more?: Never true Within the past 12 months, did you worry whether your food would run out before you got money to buy more?: Never true Do you have trouble paying for medicines?: No Do you have trouble getting transportation to medical appointments?: No Do you have trouble paying your heating and electricity bill?: No Do you have trouble taking care of your child, family member or friend?: No Do you have trouble with day-to-day activities such as bathing, preparing meals, shopping, managing finances, etc.?: No Are you currently unemployed and looking for a job?: No Are you interested in more education?: No Please select the resources that you would like help with: None Currently or been in a relationship where the following occur: no concerns reported AUDIT C Alcohol Use Questionnaire (AUDIT-C) 1. How often do you have a drink containing alcohol?: Never 3. How often do you have six or more drinks on one occasion?: Never Total Score: 0 Score Reviewed/Action Taken: Yes AALIYAH-7 AMB Questionnaire AALIYAH-7 Date AALIYAH - 7 assessed: 01/12/23 Feeling nervous, anxious, or on edge: 0 = Not at all Not being able to stop or control worryin = Not at all Worrying too much about different things: 0 = Not at all Trouble relaxin = Not at all Being so restless that it is hard to sit still: 0 = Not at all Becoming easily annoyed or irritable: 0 = Not at all Feeling afraid as if something awful might happen: 0 = Not at all Total AALIYAH-7 score (0-4 normal; 5-9 mild; 10-14 moderate; 15-21 severe): 0 Source: Developed by Drs. Cooper Beck, Gertrude Vega, Santo Tejada and colleagues, with an educational otto from [employer]. Review of Systems Const Denies fatigue, Denies fever(s) and Denies headache(s) ENT Denies dysphagia, Denies dizziness, Denies headache(s), Denies odynophagia and Denies sore throat Card Denies chest pain, Denies palpitations and Denies dyspnea Resp Denies cough and Denies dyspnea GI Details: (+) diversion ileostomy - (+) stool in ileostomy bag Denies abdominal pain, Denies dysphagia, Denies heartburn, Denies nausea, Denies odynophagia and Denies vomiting Denies dysuria, Denies nocturia and Denies urinary frequency Skin/Breast Denies rash Neuro Denies dizziness and Denies headache(s) Endo Denies fatigue and Denies palpitations Physical exam (Primary Care) Vital Signs: Last Vital Signs Pulse 72 01/12/23 12:49 BP 138/76 01/12/23 12:49 Pulse Ox 98 01/12/23 12:49 Oxygen Delivery Method Room Air 01/12/23 12:49 BMI result Body Mass Index 28.2 Tobacco/Smoking Status: Tobacco use Status Tobacco use date assessed 01/12/23 01/12/23 12:55 Patient Tobacco Use Status Never used Tobacco 01/12/23 12:55 e-Cigarette/Vaping Use Never Used 01/12/23 12:55 PHQ-9: PHQ-9 Score PHQ-9: Total score 0 01/12/23 13:41 Depression Screening Interpretation: Negative Thrive Assessment: Date of Thrive Assessment Date Thrive assessed 01/12/23 01/12/23 12:55 Currently or been in a relationship where the following occur: no concerns reported Const General: no acute distress and alert HENMT Ears: TM's normal bilaterally and EAC's normal Throat: Yes posterior oropharynx normal and Yes tonsils normal (no TP congestion) Neck Neck: Yes no lymphadenopathy and Yes supple Resp Auscultation: clear to auscultation bilaterally, no rales and no wheezes Cardio Rate: regular rate Rhythm: regular rhythm Heart sounds: no murmurs GI Other: (+) diversion ileostomy, with stool noted in ileostomy bag Palpation (GI): Soft to palpation and nontender Skin Rashes: no rashes Extrem General: Yes no clubbing, cyanosis or edema Results Reviewed Results Reviewed: Laboratory Tests 01/07/23 06:34 WBC 5.2 Hgb 12.0 L Hct 37.0 L Plt Count 126 L Sodium 140 Potassium 5.0 Creatinine 1.40 Estimated GFR 50 Fasting Glucose 170 H Hemoglobin A1c % 7.4 H Calcium 9.6 D AST 29 ALT 27 Triglycerides 92 Cholesterol 178 LDL Cholesterol, Calc 85 HDL Cholesterol 75 Assessment and Plan Assessment & Plan (1) Small bowel obstruction: Code(s): K56.609 - Unspecified intestinal obstruction, unspecified as to partial versus complete obstruction Plan: Currently resolved Patient was admitted and underwent exploratory laparotomy with lysis of extensive adhesions by Dr. Fam back in June 2022 - was found to have extensive small bowel adhesions to the abdominal wall as well as interloop adhesions causing a complete obstruction Follow up with surgery as scheduled (2) Colon cancer: Code(s): C18.9 - Malignant neoplasm of colon, unspecified Qualifiers: Colon location: transverse Qualified Code(s): C18.4 - Malignant neoplasm of transverse colon Plan: S/P laparotomy and resection of proximal transverse colon, with diverting loop ileostomy on 04/29/[address] Fam Pathology revealed invasive adenocarcinoma, with tumor perforating the visceral peritoneum (pT4a), focal high grade adenomatous dysplasia and lymph nodes and anastomotic tissues negative for tumor (pN0) He then started adjuvant chemotherapy (modified FOLFOX 6 regimen) for his colon cancer and just completed his Tx last month (November 2022) Follow-up with oncology as scheduled (3) Diabetes mellitus: Code(s): E11.9 - Type 2 diabetes mellitus without complications Qualifiers: Diabetes mellitus complication status: with hyperglycemia Diabetes mellitus php consultant insulin use: without php consultant use Diabetes mellitus type: type 2 Qualified Code(s): E11.65 - Type 2 diabetes mellitus with hyperglycemia Plan: HgbA1c was at 7.4% on his labs done a few days ago (in-office HgbA1c was at 7.5% just a few weeks ago on 12/23/2022 when checked at the endocrinology office) - goal is < 7.0% Reinforced diabetic diet Will continue on Januvia 50 mg QD and Humalog TID with meals dosed per sliding scale for now; was previously on Metformin ER 500 mg BID but this was discontinued due to his recent [place] (4) Benign essential hypertension: Code(s): I10 - Essential (primary) hypertension Plan: Reinforced low sodium diet - goal is systolic BP of at least 140 mm or less Continue Amlodipine 2.5 mg QD; was previously on Lisinopril 20 mg QD but this was discontinued when he presented to the ER a few months ago in [place] Patient is again reminded to continue monitoring his blood pressure regularly (5) Pure hypercholesterolemia: Code(s): E78.00 - Pure hypercholesterolemia, unspecified Plan: Results of his labs done a few days ago reviewed and discussed with patient Reinforced low cholesterol diet Continue Atorvastatin 10 mg QD Will recheck his labs and fasting lipids in 3 month for follow up (6) Vitamin D deficiency: Code(s): E55.9 - Vitamin D deficiency, unspecified Plan: Continue Vitamin D3 1000 units QD (7) GERD without esophagitis: Code(s): K21.9 - Gastro-esophageal reflux disease without esophagitis Plan: Dietary restrictions reinforced Continue Pantoprazole 40 mg QD (Rx refilled) Plan Follow up in 3 months Orders: Orders Lipid Panel 3 Months E78.00 - Pure hypercholesterolemia, unspecified Hemoglobin A1c 3 Months E11.9 - Type 2 diabetes mellitus without complications Complete Blood Count Auto Diff 3 Months I10 - Essential (primary) hypertension Comprehensive [place]. Panel Fast 3 Months E78.00 - Pure hypercholesterolemia, unspecified Magnesium 3 Months E83.42 - Hypomagnesemia Medications: Changed From magnesium oxide 400 mg PO DAILY 30 tabs 3RF To magnesium oxide 400 mg PO DAILY 90 tabs 1RF 90 days Refilled pantoprazole 40 mg PO DAILY 90 tabs 1RF Coding Level of Care Code Est Pt Level 4 (17731) Diagnoses Small bowel obstruction K56.609 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 Colon location: transverse Type 2 diabetes mellitus with hyperglycemia, without long-term current use of insulin E11.65 Diabetes mellitus complication status: with hyperglycemia Diabetes mellitus custodial insulin use: without custodial use Diabetes mellitus type: type 2 Benign essential hypertension I10 Pure hypercholesterolemia E78.00 Vitamin D deficiency E55.9 GERD without esophagitis K21.9
[2023-01-12 12:49] VITALS: BP 138/76; PULSE 72; O2SAT 98; BMI 28.2
== END 2023-01-12 13:45 | disposition home or self-care (01) ==
PROVIDERS: PCP Internal Medicine; Visit Provider Internal Medicine
DX: K56.609 Unspecified intestinal obstruction, unspecified as to partial versus complete obstruction (principal); C18.4 Malignant neoplasm of transverse colon; E11.65 Type 2 diabetes mellitus with hyperglycemia; I10 Essential (primary) hypertension; E78.00 Pure hypercholesterolemia, unspecified; E55.9 Vitamin D deficiency, unspecified; K21.9 Gastro-esophageal reflux disease without esophagitis
CPT/HCPCS: 99499

== ENCOUNTER 2023-01-14 05:55 | Day surgery (SDC) | payer OTHER, MEDICARE, SELFPAY ==
--- NOTE | 2023-01-13 09:48 | P.CONAN_ITS ---
Documented by User: Celia Ahumada NP 01/13/23 09:51 HPI - Anesthesia Eval Consult details Narrative: 72yo M for Colonoscopy with possible Polypectomy s/p colon resection 04/2022 [facility] Active Problems Active Problems: All Active Problems (Updated 01/11/23 @ 16:08 by Layla Terrell MD) History of colon cancer (Acute) Central retinal artery occlusion of left eye (Acute) Edema (Acute) Status post laparotomy (Acute) Small bowel obstruction (Acute) Status post colon resection (Acute ~04/29/22) Diabetes (Acute) Metabolic acidosis (Acute) Colon cancer (Chronic) Stricture of transverse colon (Acute) Right cervical radiculopathy (Acute) Screening for prostate cancer (Acute) Benign essential hypertension (Acute) Overweight (BMI 25.0-29.9) (Acute) Encounter for Medicare annual wellness exam (Acute) Vitamin D deficiency (Acute) Diabetes mellitus (Acute) Pure hypercholesterolemia (Acute) Past Medical History Medical History (Updated 01/11/23 @ 16:08 by Layla Terrell MD) History of colon cancer Small bowel obstruction Coagulase negative Staphylococcus bacteremia Colon cancer Syncope Benign essential hypertension Overweight (BMI 25.0-29.9) Vitamin D deficiency Diabetes mellitus Pure hypercholesterolemia Family History Family History Father Diabetes Hypertension Mother Diabetes Hypertension Mother Colon cancer Unknown Colon cancer Daughter Breast cancer Family history of problems with anesthesia: No Surgical History Surgical History Status post laparotomy History of surgery Status post colon resection (~04/29/22) History of colonoscopy History of Problems with Anesthesia: No Social History Social History Household Members: Unknown / Unable to assess Housing: House Do you presently have visiting nurse or other home services: Yes (unsure) Unable to assess alcohol history related to: Unknown Alcohol intake: never Patient Tobacco Use Status: Never used Tobacco e-Cigarette/Vaping Use: Never Used Second Hand Smoke Exposure: No Use of substances other than those prescribed or required for medical reasons: No Are you DNR?: No Advance Directives: No Advance Directives Information Provided: Yes Advance Directives on File: No Advance Directives Date on File: 12/24/21 service: No Current occupational status: retired Cognitive needs: No Hearing needs: No Vision needs: Yes Meds Allergies Allergy/AdvReac Type Severity Reaction Status Date / Time No Known Allergies Allergy Verified 01/12/23 12:50 [No Known Allergies*] Home Medications Medication Instructions Recorded Confirmed Last Taken Type cholecalciferol (vitamin D3) 25 25 mcg PO DAILY 03/10/20 01/11/23 04/26/22 History mcg (1,000 unit) capsule multivitamin 1 tab PO DAILY 04/26/22 01/11/23 07/19/22 History cetirizine 10 mg tablet 10 mg PO DAILY 05/28/22 01/11/23 Unknown History alcohol swabs (BD Alcohol Swabs) 0 pad topical QID 09/02/22 01/11/23 Unknown History Exam Exam Date and Time: January 13, 2023 0948 Pertinent Lab Results Pertinent Lab Results: Laboratory Tests 01/07/23 06:34 WBC 5.2 Hgb 12.0 L Hct 37.0 L Plt Count 126 L Sodium 140 Potassium 5.0 Chloride 108 Carbon Dioxide 24 BUN 23 H Creatinine 1.40 Narrative Narrative: ECHO 10/2022 Conclusions: - Essentially normal study EKG 05/2022 Vent. Rate : 082 BPM Atrial Rate : 082 BPM P-R Int : 184 ms QRS Dur : 082 ms QT Int : 318 ms P-R-T Axes : 051 -05 030 degrees QTc Int : 371 ms Normal sinus rhythm Low voltage QRS Borderline ECG When compared to the previous EKG of Premature ventricular complexes not present Assessment and Plan Assessment Anesthesia Assessment: Chart Reviewed Final Anesthetic Review Family History of Problems with Anesthesia: No History of Problems with Anesthesia: No Documented by User: Roberto Dang MD 01/14/23 07:24 [facility] Past Medical History Medical History (Updated 01/11/23 @ 16:08 by Layla Terrell MD) History of colon cancer Small bowel obstruction Coagulase negative Staphylococcus bacteremia Colon cancer Syncope Benign essential hypertension Overweight (BMI 25.0-29.9) Vitamin D deficiency Diabetes mellitus Pure hypercholesterolemia Family History Family History Father Diabetes Hypertension Mother Diabetes Hypertension Mother Colon cancer Unknown Colon cancer Daughter Breast cancer Surgical History Surgical History Status post laparotomy History of surgery Status post colon resection (~04/29/22) History of colonoscopy Social History Social History Household Members: Unknown / Unable to assess Housing: House Do you presently have visiting nurse or other home services: Yes (unsure) Unable to assess alcohol history related to: Unknown Alcohol intake: never Patient Tobacco Use Status: Never used Tobacco e-Cigarette/Vaping Use: Never Used Second Hand Smoke Exposure: No Use of substances other than those prescribed or required for medical reasons: No Are you DNR?: No Advance Directives: No Advance Directives Information Provided: Yes Advance Directives on File: No Advance Directives Date on File: 12/24/21 service: No Current occupational status: retired Cognitive needs: No Hearing needs: No Vision needs: Yes Meds Allergies Allergy/AdvReac Type Severity Reaction Status Date / Time No Known Allergies Allergy Verified 01/12/23 12:50 [No Known Allergies*] Home Medications Medication Instructions Recorded Confirmed Last Taken Type cholecalciferol (vitamin D3) 25 25 mcg PO DAILY 03/10/20 01/11/23 04/26/22 History mcg (1,000 unit) capsule multivitamin 1 tab PO DAILY 04/26/22 01/11/23 07/19/22 History cetirizine 10 mg tablet 10 mg PO DAILY 05/28/22 01/11/23 Unknown History alcohol swabs (BD Alcohol Swabs) 0 pad topical QID 09/02/22 01/11/23 Unknown History Exam Airway Mallampati Class: II TM Dist: >3cm Neck ROM: Full Loose/Missing/Broken Teeth: No Heart: ok Lungs: ok Assessment and Plan Assessment Anesthesia Assessment: Anesthesia Plan Discussed Final Anesthetic Review NPO: Yes ASA Class: III Final Preanesthetic Review: No Changes in Pt Med Stat, Meds/Allgs Chart Reviewed, Consent Obtained/Reviewed and Anes Risks/Benef Reviewed Patient Risk: Intermediate Procedure Risk: Low Anesthetic Plan Anesthetic Plan: MAC: and Agree w/ Assess. and Plan Disposition: Standard PACU
[2023-01-14 06:23] VITALS: BMI 28.1
[2023-01-14 06:45] LABS: Glucose, Whole Blood 118 mg/dL (60-115)
[2023-01-14] MEDS: Lactated Ringers 1,000 ML 100 ML IVCONT (07:11)
--- NOTE | 2023-01-14 07:20 | MHC.SHP ---
Pre-Procedural Eval Section A Date of Service: 01/14/23 The patient is an INPATIENT: No Changes since office visit: No Cold of Flu in the past 2 weeks, No New Medical Problems, No Changes in Medication and No Patient answered all questions The History & Physical has been completed within 30 days and I have reviewed it.: Yes Section B Chief Complaint: Personal history of other malignant neoplasm of Allergies: Allergies Allergy/AdvReac Type Severity Reaction Status Date / Time No Known Allergies Allergy Verified 01/12/23 12:50 [No Known Allergies*] Plan I have reviewed the history and physical and performed a pertinent physical examination on my patient. No changes have occurred unless specified. Time Spent With Patient Time: Total time managing care of this patient today ____ minutes.
--- NOTE | 2023-01-14 08:07 | P.OP_ITS ---
Operative Note Operative Note Date of Service: 01/14/23 Narrative: Preop diagnosis: History of colon cancer Postop diagnosis: diversion colitis otherwise normal colonoscopy with a lot of fecaliths Procedure: Colonoscopy Surgeon: Darion Fam MD The patient is a 72-year-old male, who had transverse colon resection with a diverting loop ileostomy for an obstructing colon cancer in April,. He also had laparotomy and lysis of adhesions in June,. His his last colonoscopy was in 2014 so I had recommended for him to undergo colonoscopy prior to planning for reversal of his ileostomy. He understood that planned procedure as well as the risks, benefits, and alternatives. He was brought to the operating room placed in left lateral decubitus position under monitored anesthesia care. a full digital rectal exam was done. There were no palpable include lesions. A surgical time-out had been done as well I then proceeded to carefully insert the scope through the anal orifice and this was gently advanced with insufflation. The patient did have a lot of ins pissated stool ball so at his colon so we had to do a lot of irrigation to allow as to visualize the lumen all the way to the cecum. The cecum was intubated. The cecum is identified via visualization of the ileocecal valve transillumination. The patient had a stool balls as well in the cecum so we had to be push this around with irrigation to allow visualization of the mucosa. We then proceeded to carefully withdraw the scope gentle examination of the entire colonic mucosa being done with scope withdrawal. Again, the patient had multiple stool balls out the colon. It was however unlikely that any large lesion may have been missed. 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 We proceeded to desufflate withdrawing the scope The rectum was which. There were no lesions seen. The anal canal was unremarkable. The scope was then withdrawn completely The patient tolerated procedure well. There were no immediate complications. Again there was note of multiple inspissated fecaliths throughout the colon, though no large lesion was seen .I will discuss with him these findings in the office. He does have a personal history of colon cancer so his next colonoscopy may be in the next 3-5 years
[2023-01-14 08:10] VITALS: BP 107/45; PULSE 64; RESP 12; TEMP 36.2; O2SAT 94
[2023-01-14 08:25] VITALS: BP 123/65; PULSE 53; RESP 16; O2SAT 98
[2023-01-14 08:40] VITALS: BP 128/68; PULSE 52; RESP 16; TEMP 36.2; O2SAT 98
== END 2023-01-14 09:25 | disposition home or self-care (01) ==
PROVIDERS: PCP Internal Medicine; Visit Provider Surgery
PROC: 0DBE8ZZ Excision of Large Intestine, Via Natural or Artificial Opening Endoscopic (ICD-10-PCS; CPT G0105; principal; 2023-01-14 07:30)
DX: Z12.11 Encounter for screening for malignant neoplasm of colon (principal); Z85.038 Personal history of other malignant neoplasm of large intestine; Z92.21 Personal history of antineoplastic chemotherapy; Z93.2 Ileostomy status; Z90.49 Acquired absence of other specified parts of digestive tract; K52.89 Other specified noninfective gastroenteritis and colitis; K56.41 Fecal impaction; I10 Essential (primary) hypertension; E78.00 Pure hypercholesterolemia, unspecified; E11.9 Type 2 diabetes mellitus without complications; Z79.4 Long term (current) use of insulin; Z79.899 Other long term (current) drug therapy; Z98.890 Other specified postprocedural states
CPT/HCPCS: G0105; 82947; J3010

== ENCOUNTER → 2023-01-14 05:55 | Outpatient (BNV) | payer OTHER, MEDICARE, SELFPAY | PROVIDERS: PCP Internal Medicine; Visit Provider Surgery | DX: Z85.038 Personal history of other malignant neoplasm of large intestine (principal); K52.89 Other specified noninfective gastroenteritis and colitis; Z93.3 Colostomy status | CPT/HCPCS: 45378 ==

== ENCOUNTER 2023-01-27 09:15 | Outpatient (AMB) | payer OTHER, MEDICARE, SELFPAY ==
--- NOTE | 2023-01-27 09:18 | MHC.OFFVIS ---
Intake Vital Signs 01/27/23 09:25 Height 5 ft 4 in Weight 166 lb BMI 28.5 BP 150/66 H Blood Pressure Location Rt brachial Position Sitting Pulse 69 Intake Visit Reasons: S/P colonoscopy Intake Note: This patient presents for a post-op assessment status post colonoscopy. Patient c/o; reports no complaints at this time status post colonoscopy. 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 He tolerated procedure well. The anastomotic site in the transverse colon appeared patent. There were no lesions seen or though he did have stool particles throughout his colon He denies any complaints at this time. He had finished his adjuvant chemotherapy last 12/28/2022. He states that he feels well overall. He stoma has been functioning well. REPLACED BY [facility] Medical History (Updated 01/27/23 @ 09:38 by Darion Fam MD) Ileostomy in place History of colon cancer Small bowel obstruction Coagulase negative Staphylococcus bacteremia Colon cancer Syncope Benign essential hypertension Overweight (BMI 25.0-29.9) Vitamin D deficiency Diabetes mellitus Pure hypercholesterolemia Surgical History History of colonoscopy (~2022) Status post laparotomy History of surgery Status post colon resection (~04/29/22) History of colonoscopy Family History Father Diabetes Hypertension Mother Diabetes Hypertension Mother Colon cancer Unknown Colon cancer Daughter Breast cancer Social History Household Members: Unknown / Unable to assess Housing: House Do you presently have visiting nurse or other home services: Yes (unsure) Unable to assess alcohol history related to: Unknown Alcohol intake: never Patient Tobacco Use Status: Never used Tobacco e-Cigarette/Vaping Use: Never Used Second Hand Smoke Exposure: No Advance Directives Date on File: 12/24/21 service: No Current occupational status: retired Cognitive needs: No Hearing needs: No Vision needs: Yes Review of Systems Const Denies chills and Denies fever(s) Card Denies chest pain, Denies dyspnea and Denies dyspnea on exertion Resp Denies cough, Denies dyspnea and Denies dyspnea on exertion GI Denies hematochezia and Denies change in bowel habits Denies hematuria and Denies difficulty urinating Musc Denies back pain and Denies limited range of motion Neuro Denies focal weakness and Denies convulsions Psych Denies depression and Denies mood swings Physical Exam Vital Signs: Last Vital Signs Pulse 69 01/27/23 09:25 BP 150/66 H 01/27/23 09:25 BMI result Body Mass Index 28.5 Const General: comfortable and no acute distress Resp Effort & Inspection: normal respiratory effort GI Other: Ileostomy functioning well, no incisional hernias Palpation (GI): Soft to palpation, not firm and nontender Assessment & Plan Assessment & Plan (1) History of colon cancer: Code(s): Z85.038 - Personal history of other malignant neoplasm of large intestine Plan: His colonoscopy last January 14, 2022 was unremarkable although he did have some residual stool throughout the colon. The anastomotic site appeared patent He has completed his adjuvant chemotherapy. He is scheduled to have a surveillance CT scan this March. We will plan on doing barium study as well for his anastomosis and we can reverse his ileostomy thereafter. (2) Ileostomy in place: Code(s): Z93.2 - Ileostomy status Coding Level of Care Code Est Pt Level 2 (94677) Diagnoses History of colon cancer Z85.[address] Z93.2
[2023-01-27 09:25] VITALS: BP 150/66; PULSE 69; BMI 28.5
== END 2023-01-27 09:38 | disposition home or self-care (01) ==
PROVIDERS: PCP Internal Medicine; Visit Provider Surgery
DX: Z85.038 Personal history of other malignant neoplasm of large intestine (principal); Z93.2 Ileostomy status
CPT/HCPCS: 99212

== ENCOUNTER → 2023-01-27 09:15 | Outpatient (BNVA) | payer OTHER, MEDICARE, SELFPAY | PROVIDERS: PCP Internal Medicine; Visit Provider Surgery | DX: E11.9 Type 2 diabetes mellitus without complications (principal); Z71.3 Dietary counseling and surveillance; Z85.038 Personal history of other malignant neoplasm of large intestine; Z92.21 Personal history of antineoplastic chemotherapy; Z93.2 Ileostomy status | CPT/HCPCS: 97803 ==

== ENCOUNTER 2023-01-27 12:46 | Outpatient (AMB) | payer OTHER, MEDICARE, SELFPAY ==
[2023-01-27 10:32] VITALS: BMI 28.5
--- NOTE | 2023-01-27 13:02 | A.OFFVIS_ITS ---
Intake VS Expanded 01/27/23 10:32 Height 5 ft 4 in Weight 166 lb BMI 28.5 Intake Visit Reasons: dm2-CONFIRMED Allergies No Known Allergies [No Known Allergies*] Allergy (Verified 01/27/23 09:24) HPI Nutrition Presentation Details Pt presents for MNT for T2DM Pt santiago has an ileostomy related to colon cancer. Pt reports having finished adjuvant chemo in 12/2022. Pt reports overall doing well with good appetite. He reports he blood B: 2 Uzbek Muffin 2 eggs, coffee no sugar cream L: chicken noodles soup with eggs D: pasteles (1-2) and rice ,w ater snack: apple with peanut butter fluids: water, diluted juice with water, sometimes janet consuelo Pt brought his glucometer has 72% BG within target, 25 % high , 3 % very high, NO hypoglycemia Pt reports following recommendations from Dr. Cook regarding DM meds . Most Recent Diabetes Results: Cholesterol 178 mg/dL (<200) 01/07/23 HDL Cholesterol 75 mg/dL (>40) 01/07/23 Triglycerides 92 mg/dL (<150) 01/07/23 Creatinine 1.20 mg/dL (0.5-1.4) 02/03/23 Blood Urea Nitrogen 20 mg/dL (9-16) H 02/03/23 Sodium 143 mmol/L (135-145) 02/03/23 Potassium 4.2 mmol/L (3.3-5.1) 02/03/23 Chloride 112 mmol/L (96-108) H 02/03/23 Carbon Dioxide 20 mmol/L (22-29) L 02/03/23 Calcium 9.4 mg/dL (8.4-10.2) 02/03/23 AST 29 U/L (5-37) 01/07/23 ALT 27 U/L (0-40) 01/07/23 Total Protein 6.7 g/dL (6.5-8.0) 01/07/23 Albumin 4.3 g/dL (3.5-5.0) 01/07/23 [facility] Medical History (Updated 01/27/23 @ 09:38 by Darion Fam MD) Ileostomy in place History of colon cancer Small bowel obstruction Coagulase negative Staphylococcus bacteremia Colon cancer Syncope Benign essential hypertension Overweight (BMI 25.0-29.9) Vitamin D deficiency Diabetes mellitus Pure hypercholesterolemia Surgical History History of colonoscopy (~2022) Status post laparotomy History of surgery Status post colon resection (~04/29/22) History of colonoscopy Family History Father Diabetes Hypertension Mother Diabetes Hypertension Mother Colon cancer Unknown Colon cancer Daughter Breast cancer Social History Household Members: Unknown / Unable to assess Housing: House Do you presently have visiting nurse or other home services: Yes (unsure) Unable to assess alcohol history related to: Unknown Alcohol intake: never Patient Tobacco Use Status: Never used Tobacco e-Cigarette/Vaping Use: Never Used Second Hand Smoke Exposure: No Advance Directives Date on File: 12/24/21 service: No Current occupational status: retired Cognitive needs: No Hearing needs: No Vision needs: Yes Assessment & Plan Assessment & Plan (1) Diabetes: Code(s): E11.9 - Type 2 diabetes mellitus without complications Plan: used wt: 75 kg Est kcal needs as per MSJ: 1965 (40% carb, 30% protein/fat) Est fluid needs as per 25-30 ml/d: 1875- 2250 Est prot per day as per 1 g/kg bw: 75 Recommend fiber intake : 8-10 g per day and gradually increase as tolerated Recommend sodium intake per day : less than 2000 mg Educated patient on: ( R = reviewed V = verbalizes understanding N/R = needs review N/A = not applicable * Food sources of carbohydrate, adequate serving sizes and its role in various health conditions: R * Differences between complex carbohydrates a simple carbohydrates, role of fiber in diet: R * Differences between types of fats and role in diet (mono on saturated fat fatty acids, saturated fatty acids, trans fats): R basic low fat concepts * Food sources of protein : R * Food sources of sodium in salt and healthy modifications for heart health in kidney health: R V R/V * Vitamins and minerals: R * Healthy plate method concept: R * Physical activity: Benefits a precaution: NR * Hypoglycemia protocol (rule of 15): NR * Dietary prevention of Hyperglycemia: R Patient Instructions: Include a variety of foods in your diet Aim at including lean protein foods in your meals , 3-4 oz serving (include a variety : fish/poultry/legumes Include MUFA in your diet (avocado, olive oil, nut butters Keep hydrated by having water or juice diluted with water with meals and snacks Coding Level of Care Code Nutr Indiv Subseq (69236) Diagnoses Diabetes E11.9 Time Spent (min) 30
== END 2023-01-27 13:38 | disposition home or self-care (01) ==
PROVIDERS: PCP Internal Medicine; Visit Provider Dietitian, Registered
DX: E11.9 Type 2 diabetes mellitus without complications (principal)

== ENCOUNTER 2023-02-03 11:44 | Outpatient (REF) | payer OTHER, MEDICARE, SELFPAY ==
[2023-02-03 13:24] LABS: Anion Gap 15 (12-20); Blood Urea Nitrogen 20 mg/dL (9-16); Calcium 9.4 mg/dL (8.4-10.2); Carbon Dioxide 20 mmol/L (22-29); Chloride 112 mmol/L (96-108); Estimated Glomerular Filt Rate 60; Glucose Random 131 mg/dL (60-115); Potassium 4.2 mmol/L (3.3-5.1); Sodium 143 mmol/L (135-145)
== END 2023-02-03 11:45 | disposition home or self-care (01) ==
LOC: HO.LAB 11:44
PROVIDERS: Visit Provider Internal Medicine Hypertension Specialist
DX: N18.31 Chronic kidney disease, stage 3a (principal)
CPT/HCPCS: 36415; 80048

== ENCOUNTER 2023-03-01 13:19 | Outpatient (AMB) | payer OTHER, MEDICARE, SELFPAY ==
--- NOTE | 2023-03-01 13:44 | HO.NEPHOV_ITS ---
HPI HPI Comments History of Present Illness Details 72 yr old man with a history of non-insu [place]akot[place]-dependent type 2 diabetes, hypertension, hypercholesterolemia, vitamin-D deficiency with a h/o colon cancer s/p ex lap & resection of transverse colon stricture w/ loop ileostomy on 04/29/22. s/p Chemo He had MARILYNN in May 2022 with creatinine of 10 and K of 7. MARILYNN resolved with hydration He has completed chemotherapy. Creatinine is stable at 1.2 [facility] Medical History (Updated 03/01/23 @ 13:57 by Nato Lerner MD) Ileostomy in place History of colon cancer Small bowel obstruction Coagulase negative Staphylococcus bacteremia Colon cancer Syncope Benign essential hypertension Overweight (BMI 25.0-29.9) Vitamin D deficiency Diabetes mellitus Pure hypercholesterolemia Surgical History History of colonoscopy (~2022) Status post laparotomy History of surgery Status post colon resection (~04/29/22) History of colonoscopy Family History Father Diabetes Hypertension Mother Diabetes Hypertension Mother Colon cancer Unknown Colon cancer Daughter Breast cancer Social History Household Members: Unknown / Unable to assess Housing: House Do you presently have visiting nurse or other home services: Yes (unsure) Unable to assess alcohol history related to: Unknown Alcohol intake: never Patient Tobacco Use Status: Never used Tobacco e-Cigarette/Vaping Use: Never Used Second Hand Smoke Exposure: No Advance Directives Date on File: 12/24/21 service: No Current occupational status: retired Cognitive needs: No Hearing needs: No Vision needs: Yes Vital Signs 03/01/23 13:47 Height 5 ft 4 in Weight 166 lb 8 oz BMI 28.6 BP 100/60 Blood Pressure Location Lt brachial Position Sitting Pulse 70 Pulse Source Pulse Oximeter Pulse Oximetry (%) 96 Oxygen Delivery Method Room Air Physical Exam Vital Signs: Last Vital Signs Pulse 70 03/01/23 13:47 BP 100/60 03/01/23 13:47 Pulse Ox 96 03/01/23 13:47 Oxygen Delivery Method Room Air 03/01/23 13:47 BMI result Body Mass Index 28.6 Const General: comfortable Nutritional Appearance: well nourished Orientation/consciousness: patient oriented x3 HEENT Head: No normal to inspection Mouth: moist mucous membranes Neck Neck: Yes supple and Yes no JVD Resp Auscultation: clear to auscultation bilaterally, no rales and rub present Cardio Jugular venous distension: no JVD Palpation: no palpable S3 and no palpable S4 Heart sounds: no rubs GI Palpation (GI): Soft to palpation and nontender Percussion: No Fluid wave present General: Yes no CVA tenderness Back/Spine/Pelvis Back: no CVA tenderness Skin General skin exam: no rashes or lesions noted Neuro General: patient oriented x3 Extrem General: Yes no pedal edema and No clubbing Results Reviewed Results Reviewed: Labs reviewed All notes reviewed Assessment & Plan Assessment & Plan (1) CKD (chronic kidney disease) stage 3, GFR 30-59 ml/min: Code(s): N18.30 - Chronic kidney disease, stage 3 unspecified Plan h/o MARILYNN superimposed on CKD MARILYNN has resolved Creatinine is back to base line At risk for MARILYNN Encouraged to increase PO fluid intake Avoid nephrotoxins including NSAIDS HTN BP acceptable Stay on low salt diet Ca Colon s/p Chemo Follow with Orders: Orders Electrolytes 03/01/23 N18.30 - Chronic kidney disease, stage 3 unspecified Creatinine 03/01/23 N18.30 - Chronic kidney disease, stage 3 unspecified Calcium 03/01/23 N18.30 - Chronic kidney disease, stage 3 unspecified Blood Urea Nitrogen 03/01/23 N18.30 - Chronic kidney disease, stage 3 unspecified Coding Level of Care Code Est Pt Level 4 (96444) Diagnoses CKD (chronic kidney disease) stage 3, GFR 30-59 ml/min N18.30
[2023-03-01 13:47] VITALS: BP 100/60; PULSE 70; O2SAT 96; BMI 28.6
== END 2023-03-01 14:00 | disposition home or self-care (01) ==
PROVIDERS: PCP Internal Medicine; Visit Provider Internal Medicine Hypertension Specialist
DX: N18.30 Chronic kidney disease, stage 3 unspecified (principal)
CPT/HCPCS: 99214

== ENCOUNTER → 2023-03-01 13:19 | Outpatient (BNVA) | payer OTHER, MEDICARE, SELFPAY | PROVIDERS: PCP Internal Medicine; Visit Provider Internal Medicine Hypertension Specialist ==

== ENCOUNTER 2023-03-23 10:47 | Outpatient (AMB) | payer OTHER, MEDICARE, SELFPAY ==
[2023-03-23 10:48] VITALS: BP 130/68; PULSE 64; O2SAT 99; BMI 28.3
--- NOTE | 2023-03-23 10:49 | AM.OFFVISMDC ---
Intake Vital Signs 03/23/23 10:48 Height 5 ft 4 in Weight 165 lb 0.6 oz BMI 28.3 BP 130/68 Blood Pressure Location Lt brachial Position Sitting Pulse 64 Pulse Source Pulse Oximeter Pulse Oximetry (%) 99 Oxygen Delivery Method Room Air Intake Visit Reasons: SAWV Intake Note: Patient is here for an Annual Wellness Visit. Appeals Representative Required: No Allergies No Known Allergies [No Known Allergies*] Allergy (Verified 03/23/23 11:19) Medication List - Last Reconciled 03/23/23 by UMESH Reyes alcohol swabs (BD Alcohol Swabs) 0 pad topical QID amlodipine 2.5 mg PO DAILY 90 days atorvastatin 10 mg PO BEDTIME 90 days [BD Ultra Fine [place] Pen Needle 32 G x Use as directed up to 4 times a day] blood sugar diagnostic (FreeStyle Test strips) As directed blood sugar diagnostic (FreeStyle Lite Strips) Test four times a day or as directed. blood-glucose meter (FreeStyle Lite Meter kit) As Directed cetirizine 10 mg PO DAILY cholecalciferol (vitamin D3) 25 mcg PO DAILY flash glucose scanning reader ([employer]Style Keily 2 [place]) As directed flash glucose sensor (FreeStyle Keily 2 Sensor kit) USE DIRECTED glucagon 3 mg/actuation (Baqsimi) 3 mg intranasal ONCE insulin lispro (Humalog KwikPen (U-100) Insulin) subcutaneously 3 times a day; Use up to 20 units before meals when on dexamethasone insulin NPH isoph U-100 human (Humulin N NPH U-100 Insulin KwikPen) 10 units (0.1 mL) subcut QAM lancets (FreeStyle Lancets) Test four times a day or as directed. magnesium oxide 400 mg PO DAILY 90 days multivitamin 1 tab PO DAILY pantoprazole 40 mg PO DAILY pen needle, diabetic Use four times a day or as directed. HPI SAWV HPI Details Patient is a 72-year-old male who presents today for subsequent wellness visit. Patient of Dr. Lepe. Today we discussed patient's need for prostate cancer screening. Colonoscopy 12/2022 and repeat in 3-[address] Fam - patient with history of colon cancer. [place] of care was reviewed with the patient and he was provided with a screening schedule. MOLST form is on file and he was provided with healthcare proxy form. [facility] Medical History Ileostomy in place History of colon cancer Small bowel obstruction Coagulase negative Staphylococcus bacteremia Colon cancer Syncope Benign essential hypertension Overweight (BMI 25.0-29.9) Vitamin D deficiency Diabetes mellitus Pure hypercholesterolemia Surgical History History of colonoscopy (~2022) Status post laparotomy History of surgery Status post colon resection (~04/29/22) History of colonoscopy Family History Father Diabetes Hypertension Mother Diabetes Hypertension Mother Colon cancer Unknown Colon cancer Daughter Breast cancer Social History Household Members: Unknown / Unable to assess Housing: House Do you presently have visiting nurse or other home services: Yes (unsure) Unable to assess alcohol history related to: Unknown Alcohol intake: never Patient Tobacco Use Status: Never used Tobacco e-Cigarette/Vaping Use: Never Used Second Hand Smoke Exposure: No Advance Directives Date on File: 12/24/21 service: No Current occupational status: retired Cognitive needs: No Hearing needs: No Vision needs: Yes Questionnaire Medicare Wellness Checkup [age] What gender do you identify with?: male During the past 4 weeks, how much have you been bothered by emotional problems such as feeling anxious, depressed, irritable, sad or downhearted, and blue?: not at all During the past 4 weeks, has your physical & emotional health limited your social activities with family, friends, neighbors, or groups?: not at all During the past 4 weeks, how much bodily pain have you generally had?: no pain During the past 4 weeks, was someone available to help you if you needed & wanted help?: yes, as much as I wanted During the past 4 weeks, what was the hardest physical activity you could do for at least 2 minutes?: moderate Can you get to places out of walking distance without help? (For eg., can you travel alone on buses, taxis or drive your car?): Yes Can you go shopping for groceries or clothes without someone's help?: Yes Can you prepare your own meals?: Yes Can you do your housework without help?: Yes Because of any health problems, do you need the help of another person with your personal care needs such as eating, bathing, dressing or getting around the house?: No Can you handle your own money without help?: Yes During the past 4 weeks, how would you rate your health in general?: good During the past 4 weeks how have things been going for you?: good & bad parts about equal Are you having difficulties driving your car?: no Do you always fasten your seat belt when you are in a car?: yes, sometimes During past 4 weeks, have you been bothered by the following: never: Falling or dizzy when standing up, Sexual problems?, Trouble eating well?, Teeth or denture problems? and Problems using the telephone? and sometimes: Tiredness or fatigue? Have you fallen 2 or more times in the past year?: No Are you afraid of falling?: No Are you a smoker?: no During the past 4 weeks, how many drinks of wine, beer, or other alcoholic beverages did you have?: no alcohol at all Do you exercise for about 20 minutes 3 or more times a week?: yes, some of the time Have you been given information to help with the following?: no: Hazards in your house that might hurt you? and no: Keeping track of your medications? How often do you have trouble taking medicines the way you have been told to take them?: I always take medicine as prescribed How confident are you that you can control & manage most of your health problems?: very confident What is your race?: or origin or descent Mini Mental State Exam (MMSE) Orientation What is the (year) (season) (date) (day) (month)?: year, season, date, day and month Score Score: 5 Activity of Daily Living Bathing - sponge bath, tub bath or shower: receives no assistance (gets in/out by self, if usual bathing means Dressing - getting clothes from closets & drawers, including inner/outer garments & fasteners.: gets clothes & gets completely dressed without help Toileting - going to the 'toilet room' for urine/bowel elimination & cleaning self/arranging clothes: goes to toilet room, cleans self, arranges clothes without help Transfer: moves in & out of bed and chair without help (may use support object) Continence: controls urination/bowel movements completely by self Feeding: feeds self without help Total Score: 0 Information obtained from: patient Using telephone: independent Traveling: independent Shopping: independent Preparing meals: independent Housework: independent Taking medicine: independent Managing money: independent PHQ-9 Over the last 2 weeks, how often have you been bothered by any of the following problems? 1. Little interest or pleasure in doing things: not at all 2. Feeling down, depressed, or hopeless: not at all 3. Trouble falling or staying asleep, or sleeping too much: not at all 4. Feeling tired or having little energy: not at all 5. Poor appetite or overeating: not at all 6. Feeling bad about yourself - or that you are a failure or have let yourself or your family down: not at all 7. Trouble concentrating on things, such as reading the newspaper or watching television: not at all 8. Moving or speaking so slowly that other people could have noticed. Or the opposite - being so fidgety or restless that you have been moving around a lot more than usual: not at all 9. Thoughts that you would be better off or of hurting yourself in some way: not at all Total score: 0 Depression Screening Interpretation: Negative Depression Screening Done: Yes [id number] - PHQ-9 Billing: Yes Source: Developed by Drs. Cooper Beck, Gertrude Vega, [place] and colleagues, with an educational otto from [employer]. Physical Exam Vital Signs: Last Vital Signs Pulse 64 03/23/23 10:48 BP 130/68 03/23/23 10:48 Pulse Ox 99 03/23/23 10:48 Oxygen Delivery Method Room Air 03/23/23 10:48 BMI result Body Mass Index 28.3 Const General: cooperative and no acute distress Orientation/consciousness: patient oriented x3 HEENT Other: Whisper test: pass Neuro Other: Balance: Normal Get up and walk: able to Romberg: negative Tandem gait: able to General: patient oriented x3 Assessment & Plan Assessment & Plan (1) Screening for prostate cancer: Code(s): Z12.5 - Encounter for screening for malignant neoplasm of prostate (2) Benign essential hypertension: Code(s): I10 - Essential (primary) hypertension Plan: Continue current treatment Low-sodium diet Continue to follow-up with nephrology (3) Overweight (BMI 25.0-29.9): Code(s): E66.3 - Overweight Plan: Healthy food choices and exercise as tolerated (4) Encounter for Medicare annual wellness exam: Code(s): Z00.00 - Encounter for general adult medical examination without abnormal findings (5) Diabetes mellitus: Code(s): E11.9 - Type 2 diabetes mellitus without complications Qualifiers: Diabetes mellitus type: type 2 Diabetes mellitus detention insulin use: without detention use Diabetes mellitus complication status: with hyperglycemia Qualified Code(s): E11.65 - Type 2 diabetes mellitus with hyperglycemia Plan: A1c 7.4 12/2022 Continue current treatment Low-carbohydrate diet (6) Pure hypercholesterolemia: Code(s): E78.00 - Pure hypercholesterolemia, unspecified Plan: Atorvastatin 10 mg at bedtime Low-cholesterol diet (7) CKD (chronic kidney disease) stage 3, GFR 30-59 ml/min: Code(s): N18.30 - Chronic kidney disease, stage 3 unspecified Plan: Continue to follow-up with nephrology Dr. Lerner (8) Ileostomy in place: Code(s): Z93.2 - Ileostomy status Plan: Continue to follow-up with general surgery Dr. Fam (9) History of colon cancer: Code(s): Z85.038 - Personal history of other malignant neoplasm of large intestine Plan: Continue to follow-up with Dr. Fam and Dr. Terrell-oncology Orders: Orders Prostate Specific Antigen Today Z12.5 - Encounter for screening for malignant neoplasm of prostate Quality Reporting (2020) Depression/Bipolar (159/160/161/177) PHQ-9: Total score: 0 Coding Level of Care Code Medicare Subsequent (G0439) Diagnoses Screening for prostate cancer Z12.5 Benign essential hypertension I10 Overweight (BMI 25.0-29.9) E66.3 Encounter for Medicare annual wellness exam Z00.00 Type 2 diabetes mellitus with hyperglycemia, without long-term current use of insulin E11.65 Diabetes mellitus type: type 2 Diabetes mellitus detention insulin use: without watermelon harvesting 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 use Diabetes mellitus complication status: with hyperglycemia Pure hypercholesterolemia E78.00 CKD (chronic kidney disease) stage 3, GFR 30-59 ml/min N18.[address] Z93.2 History of colon cancer Z85.038 CPT Codes Advance Care Planning - Advance Care Planning discussion: On file, no changes ([id number]) Advance Care Planning - Time spent: 1-15 minutes, on File ([id number]) Advance Care Planning Advance Care Planning discussion: On file, no changes Date of discussion: 03/23/23 Who was present: pt and nonprofit director Forms completed: None Time spent: 1-15 minutes, on File Actual minutes spent: 1 Did not discuss due to Cultural/Spiritual beliefs: No
== END 2023-03-23 11:36 | disposition home or self-care (01) ==
PROVIDERS: PCP Internal Medicine; Visit Provider Nurse Practitioner Family
DX: Z00.00 Encounter for general adult medical examination without abnormal findings (principal); E11.65 Type 2 diabetes mellitus with hyperglycemia; I12.9 Hypertensive chronic kidney disease with stage 1 through stage 4 chronic kidney disease, or unspecified chronic kidney disease; N18.30 Chronic kidney disease, stage 3 unspecified; E78.00 Pure hypercholesterolemia, unspecified; Z93.2 Ileostomy status; Z85.038 Personal history of other malignant neoplasm of large intestine
CPT/HCPCS: 1123F; 99397; G0439

== ENCOUNTER 2023-04-11 07:01 | Outpatient (REF) | payer OTHER, MEDICARE, SELFPAY ==
[2023-04-11 07:34] LABS: Anion Gap 13 (12-20); Blood Urea Nitrogen 13 mg/dL (9-16); Calcium 9.5 mg/dL (8.4-10.2); Carbon Dioxide 24 mmol/L (22-29); Chloride 112 mmol/L (96-108); Estimated Glomerular Filt Rate 53; Potassium 4.6 mmol/L (3.3-5.1); Sodium 144 mmol/L (135-145)
[2023-04-11 08:07] LABS: Prostate Specific Antigen 1.16 ng/mL (<0.05-4.0)
== END 2023-04-11 07:02 | disposition home or self-care (01) ==
LOC: HO.LAB 07:01
PROVIDERS: Internal Medicine Hypertension Specialist; Absent Provider Nurse Practitioner Family; PCP Internal Medicine; Visit Provider Internal Medicine
DX: Z12.5 Encounter for screening for malignant neoplasm of prostate (principal); N18.30 Chronic kidney disease, stage 3 unspecified
CPT/HCPCS: 36415; 80051; 82310; 82565; 84153; 84520

== ENCOUNTER 2023-04-15 13:06 | Outpatient (AMB) | payer OTHER, MEDICARE, SELFPAY ==
--- NOTE | 2023-04-15 13:07 | MHC.PC.OV ---
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 blood-glucose meter (FreeStyle Lite Meter kit) As Directed cetirizine 10 mg PO DAILY cholecalciferol (vitamin D3) 25 mcg PO DAILY flash glucose scanning reader (SqueeStyle Keily 2 Polaris) As directed flash glucose sensor (FreeStyle Keily 2 Sensor kit) USE DIRECTED ONCE EVERY 14 DAYS glucagon 3 mg/actuation (Baqsimi) 3 mg intranasal ONCE insulin lispro (Humalog KwikPen (U-100) Insulin) subcutaneously 3 times a day; Use up to 20 units before meals when on dexamethasone insulin NPH isoph U-100 human (Humulin N NPH U-100 Insulin KwikPen) 10 units (0.1 mL) subcut QAM lancets (FreeStyle Lancets) Test four times a day or as directed. magnesium oxide 400 mg PO DAILY 90 days multivitamin 1 tab PO DAILY pantoprazole 40 mg PO DAILY pen needle, diabetic Use four times a day or as directed. Tobacco use date assessed: 04/15/23 Fall risk assessment: No Falls in past year Last assessed Fall Risk: 04/15/23 Dental Screening Dental Screen Date: 04/15/23 Did you have a dental visit in the last 12 months?: Yes Did you have a dental problem in the last 6 months where you did not have access to dental care?: No Was dental information given to patient?: Patient has dentist HPI colon cancer, DM, hyperlipidemia, HTN HPI Details Patient comes in today for his follow up visit States that he feels okay He denies any headaches or dizziness Denies any chest pains, no SOB No nausea/vomiting, no abdominal pain No change in bowel habits noted - has not had any further problems since his last visit States that he completed his chemotherapy a few weeks ago and is scheduled for a repeat abdominal and pelvic CT next month for follow up Had some follow up labs done a few days ago - to discuss his results [facility] Medical History Ileostomy in place History of colon cancer Small bowel obstruction Coagulase negative Staphylococcus bacteremia Colon cancer Syncope Benign essential hypertension Overweight (BMI 25.0-29.9) Vitamin D deficiency Diabetes mellitus Pure hypercholesterolemia Surgical History History of colonoscopy (~2022) Status post laparotomy History of surgery Status post colon resection (~04/29/22) History of colonoscopy Family History Father Diabetes Hypertension Mother Diabetes Hypertension Mother Colon cancer Unknown Colon cancer Daughter Breast cancer Social History Household Members: Unknown / Unable to assess Housing: House Do you presently have visiting nurse or other home services: Yes (unsure) Unable to assess alcohol history related to: Unknown Alcohol intake: never Patient Tobacco Use Status: Never used Tobacco e-Cigarette/Vaping Use: Never Used Second Hand Smoke Exposure: No Advance Directives Date on File: 12/24/21 service: No Current occupational status: retired Cognitive needs: No Hearing needs: No Vision needs: Yes Questionnaire PHQ-9 Over the last 2 weeks, how often have you been bothered by any of the following problems? 1. Little interest or pleasure in doing things: not at all 2. Feeling down, depressed, or hopeless: not at all 3. Trouble falling or staying asleep, or sleeping too much: not at all 4. Feeling tired or having little energy: not at all 5. Poor appetite or overeating: not at all 6. Feeling bad about yourself - or that you are a failure or have let yourself or your family down: not at all 7. Trouble concentrating on things, such as reading the newspaper or watching television: not at all 8. Moving or speaking so slowly that other people could have noticed. Or the opposite - being so fidgety or restless that you have been moving around a lot more than usual: not at all 9. Thoughts that you would be better off or of hurting yourself in some way: not at all Total score: 0 Depression Screening Interpretation: Negative Depression Screening Done: Yes [id number] - PHQ-9 Billing: Yes Source: Developed by Drs. Cooper Beck, Gertrude Vega, Santo Tejada and colleagues, with an educational otto from [employer]. Thrive Questionnaire Date Thrive assessed: 04/15/23 I am a: Patient What is your living situation today?: I have a steady place to live Within the past 12 months, did the food you bought not last and you didn't have the money to get more?: Never true Within the past 12 months, did you worry whether your food would run out before you got money to buy more?: Never true Do you have trouble paying for medicines?: No Do you have trouble getting transportation to medical appointments?: No Do you have trouble paying your heating and electricity bill?: No Do you have trouble taking care of your child, family member or friend?: No Do you have trouble with day-to-day activities such as bathing, preparing meals, shopping, managing finances, etc.?: No Are you currently unemployed and looking for a job?: No Are you interested in more education?: No Please select the resources that you would like help with: None Currently or been in a relationship where the following occur: no concerns reported AUDIT C Alcohol Use Questionnaire (AUDIT-C) 1. How often do you have a drink containing alcohol?: Never 3. How often do you have six or more drinks on one occasion?: Never Total Score: 0 Score Reviewed/Action Taken: Yes AALIYAH-7 AMB Questionnaire AALIYAH-7 Date AALIYAH - 7 assessed: 04/15/23 Feeling nervous, anxious, or on edge: 0 = Not at all Not being able to stop or control worryin = Not at all Worrying too much about different things: 0 = Not at all Trouble relaxin = Not at all Being so restless that it is hard to sit still: 0 = Not at all Becoming easily annoyed or irritable: 0 = Not at all Feeling afraid as if something awful might happen: 0 = Not at all Total AALIYAH-7 score (0-4 normal; 5-9 mild; 10-14 moderate; 15-21 severe): 0 Source: Developed by Drs. Cooper Beck, Gertrude Vega, Santo Tejada and colleagues, with an educational otto from [employer]. Review of Systems Const Denies chills, Denies fatigue, Denies fever(s) and Denies headache(s) ENT Denies dysphagia, Denies dizziness, Denies otalgia, Denies headache(s), Denies odynophagia and Denies sore throat Card Denies chest pain, Denies palpitations and Denies dyspnea Resp Denies cough and Denies dyspnea GI Details: (+) diversion ileostomy - (+) stool in ileostomy bag Denies abdominal pain, Denies dysphagia, Denies heartburn, Denies nausea, Denies odynophagia and Denies vomiting Denies dysuria, Denies nocturia and Denies urinary frequency Skin/Breast Denies rash Neuro Denies dizziness and Denies headache(s) Endo Denies fatigue and Denies palpitations Physical exam (Primary Care) Vital Signs: Last Vital Signs Pulse 79 04/15/23 13:08 BP 104/80 04/15/23 13:08 Pulse Ox 99 04/15/23 13:08 Oxygen Delivery Method Room Air 04/15/23 13:08 BMI result Body Mass Index 28.9 Tobacco/Smoking Status: Tobacco use Status Tobacco use date assessed 04/15/23 04/15/23 13:09 Patient Tobacco Use Status Never used Tobacco 04/15/23 13:09 e-Cigarette/Vaping Use Never Used 04/15/23 13:09 PHQ-9: PHQ-9 Score PHQ-9: Total score 0 04/15/23 13:48 Depression Screening Interpretation: Negative Thrive Assessment: Date of Thrive Assessment Date Thrive assessed 04/15/23 04/15/23 13:09 Currently or been in a relationship where the following occur: no concerns reported Const General: no acute distress and alert HENMT Ears: TM's normal bilaterally and EAC's normal Throat: Yes posterior oropharynx normal and Yes tonsils normal (no TP congestion) Neck Neck: Yes no lymphadenopathy and Yes supple Resp Auscultation: clear to auscultation bilaterally, no rales and no wheezes Cardio Rate: regular rate Rhythm: regular rhythm Heart sounds: no murmurs GI Other: (+) diversion ileostomy, with stool noted in ileostomy bag Palpation (GI): Soft to palpation and nontender Skin Rashes: no rashes Extrem General: Yes no clubbing, cyanosis or edema Results AMB Hemoglobin A1c AMB Hemoglobin A1c 7.3 % Last Edit by Cynthia Randolph on 04/15/23 13:30 Results Reviewed Results Reviewed: Laboratory Last Values Hgb A1c (Clinic) 7.3 % (4.0-6.0) H 04/15/23 13:29 Laboratory Tests 04/11/23 04/11/23 04/15/23 07:14 07:14 13:29 Sodium 144 Potassium 4.6 Creatinine 1.34 Estimated GFR 53 Hgb A1c (Clinic) 7.3 H Calcium 9.5 Prostate Specific Ag 1.16 Assessment and Plan Assessment & Plan (1) Colon cancer: Code(s): C18.9 - Malignant neoplasm of colon, unspecified Qualifiers: Colon location: transverse Qualified Code(s): C18.4 - Malignant neoplasm of transverse colon Plan: S/P laparotomy and resection of proximal transverse colon, with diverting loop ileostomy on 04/29/[address] Fam Pathology revealed invasive adenocarcinoma, with tumor perforating the visceral peritoneum (pT4a), focal high grade adenomatous dysplasia and lymph nodes and anastomotic tissues negative for tumor (pN0) He has completed adjuvant chemotherapy (modified FOLFOX 6 regimen) although he developed SBO due to adhesions back in December 2022 and required exploratory laparotomy with lysis of extensive adhesions He presently still has a Port-a-cath on his right upper chest area He is scheduled to undergo repeat abdominal and pelvic CT next month for follow up Follow-up with oncology and with surgery as scheduled (2) Diabetes mellitus: Code(s): E11.9 - Type 2 diabetes mellitus without complications Qualifiers: Diabetes mellitus complication status: with hyperglycemia Diabetes mellitus terminal clerk insulin use: without terminal clerk use Diabetes mellitus type: type 2 Qualified Code(s): E11.65 - Type 2 diabetes mellitus with hyperglycemia Plan: In-office HgbA1c today is at 7.3% (HgbA1c was at 8.5% a few months ago) - goal is < 7.0% Reinforced diabetic diet Continue Januvia 50 mg QD and Humalog TID with meals dosed per sliding scale for now; Metformin ER 500 mg was discontinued a few months ago due to [place] (3) Benign essential hypertension: Code(s): I10 - Essential (primary) hypertension Plan: Reinforced low sodium diet - goal is systolic BP of at least 140 mm or less Continue Amlodipine 2.5 mg QD; was previously on Lisinopril 20 mg QD but this was discontinued when he presented to the ER a few months ago in [place] Patient is again reminded to continue monitoring his blood pressure regularly (4) Pure hypercholesterolemia: Code(s): E78.00 - Pure hypercholesterolemia, unspecified Plan: Results of his labs done a few days ago reviewed and discussed with patient although these did not include a fasting lipid profile Reinforced low cholesterol diet Continue Atorvastatin 10 mg QD Will recheck his labs and fasting lipids in 3 months for follow up - his previous lab orders are updated and he can just use these for his next lab draw (5) Vitamin D deficiency: Code(s): E55.9 - Vitamin D deficiency, unspecified Plan: Continue Vitamin D3 1000 units QD Plan Follow up in 3 months Orders: Orders UA CC w/rflx Micro + Cult 07/08/23 R30.0 - Dysuria Vitamin D 25-OH Total 07/08/23 E55.9 - Vitamin D deficiency, unspecified AMB Hemoglobin A1c Today Z13.9 - Encounter for screening, unspecified TSH reflex Free T4 07/08/23 E78.00 - Pure hypercholesterolemia, unspecified Coding Level of Care Code Est Pt Level 4 (95083) Diagnoses 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 Colon location: transverse Type 2 diabetes mellitus with hyperglycemia, without long-term current use of insulin E11.65 Diabetes mellitus complication status: with hyperglycemia Diabetes mellitus half-way insulin use: without terminal clerk use Diabetes mellitus type: type 2 Benign essential hypertension I10 Pure hypercholesterolemia E78.00 Vitamin D deficiency E55.9
[2023-04-15 13:08] VITALS: BP 104/80; PULSE 79; O2SAT 99; BMI 28.9
== END 2023-04-15 13:53 | disposition home or self-care (01) ==
PROVIDERS: PCP Internal Medicine; Visit Provider Internal Medicine
DX: C18.4 Malignant neoplasm of transverse colon (principal); E11.65 Type 2 diabetes mellitus with hyperglycemia; E78.00 Pure hypercholesterolemia, unspecified; I10 Essential (primary) hypertension; E55.9 Vitamin D deficiency, unspecified
CPT/HCPCS: 83036; 99214

== ENCOUNTER 2023-04-21 12:45 | Outpatient (AMB) | payer OTHER, MEDICARE, SELFPAY ==
--- NOTE | 2023-04-21 12:48 | MHC.OFFVIS ---
Intake Vital Signs 04/21/23 12:49 Height 5 ft 4 in Weight 169 lb 12.095 oz BMI 29.1 BP 150/62 H Blood Pressure Location Lt brachial Position Sitting Pulse 70 Pulse Source Pulse Oximeter Intake Visit Reasons: f/u steroid induced hyperglycemia-CONFIRMED Intake Note: Patient presents today to follow up on steroid induced hyperglycemia. Last Diabetic Eye exam: 02/2023 Last Podiatry Visit: None Random Glucose: 212 mg/dl HgA1C: 7.3% 04/15/[address] Required: No Accompanied by: Spouse Allergies No Known Allergies [No Known Allergies*] Allergy (Verified 04/21/23 12:57) Medication List - Last Reconciled 04/21/23 by Cooper Corral MD alcohol swabs (BD Alcohol Swabs) 0 pad topical QID amlodipine 2.5 mg PO DAILY 90 days atorvastatin 10 mg PO BEDTIME 90 days [BD Ultra Fine Floridalma Pen Needle 32 G x Use as directed up to 4 times a day] blood sugar diagnostic (FreeStyle Test strips) As directed blood sugar diagnostic (FreeStyle Lite Strips) Test four times a day or as directed. blood-glucose meter (FreeStyle Lite Meter kit) As Directed cetirizine 10 mg PO DAILY cholecalciferol (vitamin D3) 25 mcg PO DAILY flash glucose scanning reader (UmmitechStyle Keily 2 Schneider) As directed flash glucose sensor (FreeStyle Keily 2 Sensor kit) USE DIRECTED ONCE EVERY 14 DAYS glucagon 3 mg/actuation (Baqsimi) 3 mg intranasal ONCE insulin lispro (Humalog KwikPen (U-100) Insulin) subcutaneously 3 times a day; Use up to 20 units before meals when on dexamethasone lancets (FreeStyle Lancets) Test four times a day or as directed. magnesium oxide 400 mg PO DAILY 90 days multivitamin 1 tab PO DAILY pantoprazole 40 mg PO DAILY pen needle, diabetic Use four times a day or as directed. HPI HPI Comments History of Present Illness Details 72 YO M who is seen in consultation for T2DM at the request of PCP.off chemo Initially diagnosed with T2DM in 10 yrs . Was initially started on treatment with []. Current regimen Humalog 4-6 units Is not receiving Dexamethasone or chemo any more Keily download shows he is using the sensor 97% of the time with average glucose of 157 and GMI of 7.1 variability 21.5%. 79% range with 20% hyperglycemia 8% very hyperglycemic no hypoglycemia Not Reports low sugars . Family history of T2DM in mother, father and sister . Has eyes checked yearly,last mo , denies retinopathy. Denies neuropathy, not sees podiatry. Denies nephropathy, on PEDRO/ARB.]. Has HLD, on statin. . Denies CAD. occasionally Had diabetes education. [facility] Medical History Ileostomy in place History of colon cancer Small bowel obstruction Coagulase negative Staphylococcus bacteremia Colon cancer Syncope Benign essential hypertension Overweight (BMI 25.0-29.9) Vitamin D deficiency Diabetes mellitus Pure hypercholesterolemia Surgical History History of colonoscopy (~2022) Status post laparotomy History of surgery Status post colon resection (~04/29/22) History of colonoscopy Family History Father Diabetes Hypertension Mother Diabetes Hypertension Mother Colon cancer Unknown Colon cancer Daughter Breast cancer Social History Household Members: Unknown / Unable to assess Housing: House Do you presently have visiting nurse or other home services: Yes (unsure) Unable to assess alcohol history related to: Unknown Alcohol intake: never Patient Tobacco Use Status: Never used Tobacco e-Cigarette/Vaping Use: Never Used Second Hand Smoke Exposure: No Advance Directives Date on File: 12/24/21 service: No Current occupational status: retired Cognitive needs: No Hearing needs: No Vision needs: Yes Physical Exam Vital Signs: Last Vital Signs Pulse 70 04/21/23 12:49 BP 150/62 H 04/21/23 12:49 BMI result Body Mass Index 29.1 Absence of Cushingoid features. Absence of acromegalic features. Neck exam reveals nl size thyroid about 15 gms. No thyroid nodules palpable. No carotid bruits present. Lungs CTA. Heart S1 S2, Reg R/R. No M/R/ G. Skin exam reveals absence of vitiligo or acanthosis nigricans. Abdominal exam reveals Soft NT/ND with NA BS. No organomegaly present. Neck Other: . Extrem Other: Visual exam of foot performed. No ulcerations or open lesions. No onchomycosis, no callouses.Pulses 2 + distally Sensation intact to monofilament exam. Vibratory sensation sensed is intact with 128 Hz tuning fork Assessment & Plan Assessment & Plan (1) Diabetes mellitus: Code(s): E11.9 - Type 2 diabetes mellitus without complications Qualifiers: Diabetes mellitus type: type 2 Diabetes mellitus remote computer terminal operator insulin use: without remote computer terminal operator use Diabetes mellitus complication status: with hyperglycemia Qualified Code(s): E11.65 - Type 2 diabetes mellitus with hyperglycemia Plan: This is a 72-year-old male with history of type 2 diabetes exacerbated by steroids currentlyoff steroids being treated with correction prandial with improving excellent glycemic control and no known microvascular or macrovascular complications. Plan is to continue present management but have the patient attempt to wean off the insulin . At this point, patient can follow up with primary care provider and return back to endocrinology should his HbA1c deteriorate Coding Level of Care Code Est Pt Level 4 (04908) Diagnoses Type 2 diabetes mellitus with hyperglycemia, without long-term current use of insulin E11.65 Diabetes mellitus type: type 2 Diabetes mellitus correction insulin use: without remote computer terminal operator use Diabetes mellitus complication status: with hyperglycemia
[2023-04-21 12:49] VITALS: BP 150/62; PULSE 70; BMI 29.1
[2023-04-21 13:04] LABS: Glucose, Whole Blood 212 mg/dL (60-115)
== END 2023-04-21 13:14 | disposition home or self-care (01) ==
PROVIDERS: PCP Internal Medicine; Visit Provider Internal Medicine Endocrinology, Diabetes & Metabolism
DX: E11.65 Type 2 diabetes mellitus with hyperglycemia (principal)
CPT/HCPCS: 99214

== ENCOUNTER → 2023-04-21 12:45 | Outpatient (BNVA) | payer OTHER, MEDICARE, SELFPAY | PROVIDERS: PCP Internal Medicine; Visit Provider Internal Medicine Endocrinology, Diabetes & Metabolism | DX: E11.65 Type 2 diabetes mellitus with hyperglycemia (principal) | CPT/HCPCS: 82947 ==

== ENCOUNTER 2023-05-02 12:28 | Outpatient (AMB) | payer OTHER, MEDICARE, SELFPAY ==
--- NOTE | 2023-05-02 13:11 | A.OFFVIS_ITS ---
Intake VS Expanded 05/02/23 13:12 Height 5 ft 4 in Weight 169 lb 8.568 oz BMI 29.1 Intake Visit Reasons: DM/LVM Allergies No Known Allergies [No Known Allergies*] Allergy (Verified 04/21/23 12:57) HPI Nutrition Presentation Details Pt presents for MNT f/u for T2DM Pt reports doing well, feeling well Reports eating 3 meals/d B: Sand (ham/cheese or egg/cheese or tuna), tea or water or coffee L: root veg with meat or fish ,water Dinner: rice/beans, chicken or pasta with chicken and sauce ,water snack: glucerna shake or cracker with p.b or cheese and fruit Denies having hypoglycemia. Reports no longer on basal insulin but taking humalog with a meal (1-2 x/day) depending on pre prandial blood glucose. Pt reports fasting blood sugar range from 140-150s. Rports keeping hydrated by water water, juice diluted with water, milk Pt reports taking a one a day MVI, vitamin D and a b 12 Most Recent Diabetes Results: Creatinine 1.34 mg/dL (0.5-1.4) 04/11/23 Blood Urea Nitrogen 13 mg/dL (9-16) 04/11/23 Sodium 144 mmol/L (135-145) 04/11/23 Potassium 4.6 mmol/L (3.3-5.1) 04/11/23 Chloride 112 mmol/L (96-108) H 04/11/23 Carbon Dioxide 24 mmol/L (22-29) 04/11/23 Calcium 9.5 mg/dL (8.4-10.2) 04/11/23 AST 32 U/L (5-37) 12/24/22 ALT 27 U/L (0-40) 12/24/22 Total Protein 7.2 g/dL (6.5-8.0) 12/24/22 Albumin 4.5 g/dL (3.5-5.0) 12/24/22 [facility] Medical History Ileostomy in place History of colon cancer Small bowel obstruction Coagulase negative Staphylococcus bacteremia Colon cancer Syncope Benign essential hypertension Overweight (BMI 25.0-29.9) Vitamin D deficiency Diabetes mellitus Pure hypercholesterolemia Surgical History History of colonoscopy (~2022) Status post laparotomy History of surgery Status post colon resection (~04/29/22) History of colonoscopy Family History Father Diabetes Hypertension Mother Diabetes Hypertension Mother Colon cancer Unknown Colon cancer Daughter Breast cancer Social History Household Members: Unknown / Unable to assess Housing: House Do you presently have visiting nurse or other home services: Yes (unsure) Unable to assess alcohol history related to: Unknown Alcohol intake: never Patient Tobacco Use Status: Never used Tobacco e-Cigarette/Vaping Use: Never Used Second Hand Smoke Exposure: No Advance Directives Date on File: 12/24/21 service: No Current occupational status: retired Cognitive needs: No Hearing needs: No Vision needs: Yes Assessment & Plan Assessment & Plan (1) Diabetes: Code(s): E11.9 - Type 2 diabetes mellitus without complications Plan: used wt: 75 kg Est kcal needs as per MSJ: 1965 (40% carb, 30% protein/fat) Est fluid needs as per 25-30 ml/d: 1875- 2250 Est prot per day as per 1 g/kg bw: 75 Recommend fiber intake : 8-10 g per day and gradually increase as tolerated Recommend sodium intake per day : less than 2000 mg Educated patient on: ( R = reviewed V = verbalizes understanding N/R = needs review N/A = not applicable * Food sources of carbohydrate, adequate serving sizes and its role in various health conditions: R * Differences between complex carbohydrates a simple carbohydrates, role of fiber in diet: R * Differences between types of fats and role in diet (mono on saturated fat fatty acids, saturated fatty acids, trans fats): R basic low fat concepts * Food sources of protein : R * Food sources of sodium in salt and healthy modifications for heart health in kidney health: R V * Vitamins and minerals: R * Healthy plate method concept: R , V * Physical activity: Benefits a precaution: R, V * Hypoglycemia protocol (rule of 15): R, V * Dietary prevention of Hyperglycemia: R , V PCP RECOMMENDATION: Pt may be in need of basal insulin. Pt did not bring glucometer to this appt, however Pt mentioned having fasting blood glucose between 140-160s , not on basal insulin or oral hypoglycemic agents but taking Humalog on a sliding scale with meals. Pt was advised to monitor blood glucose and discuss levels with MD at f/u visit Patient Instructions: Continue following healthy plate method, include iron rich sources of foods Monitor your blood sugars prior to each meal, discuss blood sugar levels with your doctor for further assessment.. Coding Level of Care Code Nutr Indiv Subseq (62289) Diagnoses Diabetes E11.9 Time Spent (min) 30
[2023-05-02 13:12] VITALS: BMI 29.1
== END 2023-05-02 13:58 | disposition home or self-care (01) ==
PROVIDERS: PCP Internal Medicine; Visit Provider Dietitian, Registered
DX: E11.9 Type 2 diabetes mellitus without complications (principal)

== ENCOUNTER → 2023-05-02 12:28 | Outpatient (BNVA) | payer OTHER, MEDICARE, SELFPAY | PROVIDERS: PCP Internal Medicine; Visit Provider Dietitian, Registered | DX: E11.9 Type 2 diabetes mellitus without complications (principal); Z71.3 Dietary counseling and surveillance | CPT/HCPCS: 97803 ==

== ENCOUNTER 2023-05-12 14:40 | Outpatient (REF) | payer OTHER, MEDICARE, SELFPAY ==
--- NOTE | ~2023-05-12 | CT_ITS ---
EXAMINATION: CT chest. CLINICAL INFORMATION: Colon carcinoma, restaging. COMPARISON: FDG PET scan on 06/15/2022 TECHNIQUE: A multidetector helical CT acquisition of the chest was obtained following the administration of 85 mL of Omnipaque 350. Multiplanar reformats were acquired and utilized for image interpretation. Coronal and sagittal images were reconstructed from axial image data. Dose reduction technique: One or more of the following individual dose optimization techniques were used including: Automated exposure control, mA and/or kV were adjusted according to patient size or iterative reconstruction. DLP: 457.32 mGy-cm FINDINGS: LUNGS: The visualized lung parenchyma is clear. -Nodule #1 (Series 6, image 119): 3.4 mm solid nodule, posterior lateral pleural border of left upper lobe apical posterior segment. -Nodule #2 (Series 6, image 194): 2.7 mm solid nodule, right upper lobe anterior segment. PLEURA: No pleural effusion or pneumothorax is seen. PERICARDIUM: No pericardial effusion is seen. MEDIASTINUM AND YONIS: No abnormally enlarged mediastinal or hilar lymph nodes are seen. TRACHEOBRONCHIAL TREE: Trachea and bilateral mainstem bronchi are patent. THORACIC AORTA: The thoracic aorta is normal in size and smoothly patent. CORONARY ARTERY CALCIFICATIONS: None PULMONARY ARTERIES: The main pulmonary arteries show normal enhancement. CHEST WALL AND LOWER NECK: Right internal jugular central catheter is seen ending in superior vena cava. The subcutaneous and muscular chest wall are intact with no focal lesion. No abnormal mass lesion could be seen in the visualized lower neck. BONES: No fracture or dislocation. No focal bone lesion diagnostic of metastatic disease could be seen in the thorax. VISUALIZED UPPER ABDOMEN: Bilateral adrenal glands are not enlarged. Fleischner guidelines were followed. EXAMINATION: CT abdomen. CLINICAL INFORMATION: Colon carcinoma, restaging. COMPARISON: CT scan of abdomen and pelvis on 10/27/2022, FDG PET/CT scan on 06/15/2022 TECHNIQUE: A multidetector helical CT acquisition of the abdomen and pelvis was obtained following the administration of 85 mL of Omnipaque 350. Multiplanar reformats were acquired and utilized for image interpretation. Dose reduction technique: One or more of the following individual dose optimization techniques were used including: Automated exposure control, mA and/or kV were adjusted according to patient size or iterative reconstruction. DLP: 457.32 mGy-cm FINDINGS: LUNG BASES: Bilateral lung bases are clear. LIVER: Low density stable cystic lesions are seen in the left hepatic lobe with the largest cyst found in posterior segment 4A, measuring 1.0 cm in size, mean attenuation of 28 Hounsfield units. GALLBLADDER AND BILIARY TREE: Gallbladder appears unremarkable without calcified stones. Common bile duct is not dilated. SPLEEN: The spleen is normal in size without focal lesion. PANCREAS: The pancreas appears unremarkable. ADRENAL GLANDS: Adrenal glands are normal in size without focal lesion bilaterally. KIDNEYS: Bilateral kidneys are normal in size with unchanged simple cyst at lateral mid right renal cortex measuring 0.7 cm in diameter, for which no follow up imaging is recommended. BOWELS: There is no abnormal dilatation of the large and small bowel loops. Ascending colon is filled with feces, with apparent mural thickening due to incomplete distention. Right-sided transverse colon anastomosis is seen. RETROPERITONEUM: No abnormally enlarged retroperitoneal lymph nodes, mass or hematoma could be seen. BLOOD VESSELS: Abdominal aorta is normal in size and smoothly patent. ABDOMINAL WALL: Small right periumbilical hernia containing mesenteric fat is seen. Right suprapubic ileostomy is present. PERITONEUM: There was no ascites. There were no abdominal peritoneal inflammatory changes seen. No free peritoneal air was seen. No abnormally enlarged mesenteric lymph nodes are found. BONES: No fracture or dislocation. No focal bone lesion diagnostic of metastatic disease could be seen in the lumbar region. EXAMINATION: CT pelvis. TECHNIQUE: Multiple axial images were obtained from iliac crest to the inferior pubic rami following the administration of 100 mL of Omnipaque 300. Coronal and sagittal images were reconstructed from axial image data. Dose reduction technique: One or more of the following individual dose optimization techniques were used including: Automated exposure control, mA and/or kV were adjusted according to patient size or iterative reconstruction. FINDINGS: URINARY BLADDER: Urinary bladder fills normally with urine. There is mild circumferential mural thickening of urinary bladder. BOWELS: There is moderate fecal distention of the cecum. Appendix cannot be identified. GENITAL ORGANS: Seminal vesicles are unremarkable. Prostate gland is enlarged. LYMPH NODES: No abnormally enlarged iliac or inguinal lymph nodes are seen. PERITONEUM: No inflammatory changes, ascites or free peritoneal air are found in the pelvis. BONES: No fracture or dislocation. No focal bone lesion diagnostic of metastatic disease could be seen in the pelvis. CT/CT abdomen pelvis w IV con IMPRESSION: 1. Left upper lobe and right upper lobe micronodules are found. 2. Stable cystic lesions in the left hepatic lobe. 3. Unchanged Right-sided transverse colon anastomosis and Right suprapubic ileostomy. 4. Unchanged tiny right mid renal cortical simple cyst, for which no follow up imaging is recommended. 5. Recurrent Moderate fecal distention of the cecum. 6. Unchanged Mild circumferential mural thickening of urinary bladder. 7. Unchanged Small right periumbilical hernia containing mesenteric fat. 8. Right internal jugular central line is seen ending in the superior vena cava.
[2023-05-12] MEDS: iohexoL 350 MG/ML 100 ML INFUS..BTL 85 ML IV (15:33)
== END 2023-05-12 14:41 | disposition home or self-care (01) ==
LOC: HO.CT 14:40
PROVIDERS: PCP Internal Medicine; Visit Provider Internal Medicine
DX: C18.9 Malignant neoplasm of colon, unspecified (principal)
CPT/HCPCS: 71260; 74177; Q9967

== ENCOUNTER 2023-05-18 15:03 | Outpatient (AMB) | payer OTHER, MEDICARE, SELFPAY ==
--- NOTE | 2023-05-18 15:08 | MHC.OFFVIS ---
Intake Vital Signs 05/18/23 15:14 Height 5 ft 4 in Weight 169 lb BMI 29.0 BP 150/68 H Blood Pressure Location Lt brachial Position Sitting Pulse 57 Intake Visit Reasons: History of colon cancer, ileostomy in place Intake Note: This patient presents for an assessment for history of colon carcinoma, ileostomy in place. Patient c/o; reports no complaints at this time. 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 blood-glucose meter (FreeStyle Lite Meter kit) As Directed cetirizine 10 mg PO DAILY cholecalciferol (vitamin D3) 25 mcg PO DAILY flash glucose scanning reader (FreeStyle Keily 2 Blanco) As directed flash glucose sensor (FreeStyle Keily 2 Sensor kit) APPLY ONCE EVERY 14 DAYS DIRECTED glucagon 3 mg/actuation (Baqsimi) 3 mg intranasal ONCE insulin lispro (Humalog KwikPen (U-100) Insulin) subcutaneously 3 times a day; Use up to 20 units before meals when on dexamethasone lancets (FreeStyle Lancets) Test four times a day or as directed. magnesium oxide 400 mg PO DAILY 90 days multivitamin 1 tab PO DAILY pantoprazole 40 mg PO DAILY pen needle, diabetic Use four times a day or as directed. HPI History of colon cancer, ileostomy in place HPI Details He had an obstructing stricture in the transverse colon and had undergone colon resection for this last April,. I had protected this anastomosis with a loop ileostomy because of the marked edema and dilatation of the proximal colon. He feels that he is ready to have his ileostomy reversed. He feels well. He has no problems with ileostomy function. [facility] Medical History Ileostomy in place History of colon cancer Small bowel obstruction Coagulase negative Staphylococcus bacteremia Colon cancer Syncope Benign essential hypertension Overweight (BMI 25.0-29.9) Vitamin D deficiency Diabetes mellitus Pure hypercholesterolemia Surgical History History of colonoscopy (~2022) Status post laparotomy History of surgery Status post colon resection (~04/29/22) History of colonoscopy Family History Father Diabetes Hypertension Mother Diabetes Hypertension Mother Colon cancer Unknown Colon cancer Daughter Breast cancer Social History Household Members: Unknown / Unable to assess Housing: House Do you presently have visiting nurse or other home services: Yes (unsure) Unable to assess alcohol history related to: Unknown Alcohol intake: never Patient Tobacco Use Status: Never used Tobacco e-Cigarette/Vaping Use: Never Used Second Hand Smoke Exposure: No Advance Directives Date on File: 12/24/21 service: No Current occupational status: retired Cognitive needs: No Hearing needs: No Vision needs: Yes Review of Systems Const Denies chills and Denies fever(s) Card Denies chest pain, Denies dyspnea and Denies dyspnea on exertion Resp Denies cough, Denies dyspnea and Denies dyspnea on exertion GI Denies hematochezia and Denies change in bowel habits Denies hematuria and Denies difficulty urinating Musc Denies back pain and Denies limited range of motion Neuro Denies focal weakness and Denies convulsions Psych Denies depression and Denies mood swings Physical Exam Const General: comfortable and no acute distress Resp Effort & Inspection: normal respiratory effort Cardio Rate: regular rate GI Other: Loop ileostomy functioning well Palpation (GI): Soft to palpation, not firm, nontender and no guarding Assessment & Plan Assessment & Plan (1) Ileostomy in place: Code(s): Z93.2 - Ileostomy status Plan: He is now considering reversal of his loop ileostomy. I am going to order for a barium enema study to check his transverse colon anastomosis. I had done his colonoscopy last December 2022 for the colon but he had a lot of stools left. He had a CAT scan done last week both the chest and abdomen as ordered by Dr. Terrell. Micro nodules although lungs were seen but otherwise there was no suggestion of metastatic disease. I will see him in the office after his barium enema study to discuss reversal of his loop ileostomy. (2) History of colon cancer: Code(s): Z85.038 - Personal history of other malignant neoplasm of large intestine Plan: He still has his diverting loop ileostomy after transverse colon resection. We will schedule him for a barium enema study. Orders: Orders FL barium enema Today Z85.038 - Personal history of other malignant neoplasm of large intestine, Z93.2 - Ileostomy status Coding Level of Care Code Est Pt Level 3 (47321) Diagnoses Ileostomy in place Z93.2 History of colon cancer Z85.038
[2023-05-18 15:14] VITALS: BP 150/68; PULSE 57; BMI 29.0
== END 2023-05-18 15:35 | disposition home or self-care (01) ==
PROVIDERS: PCP Internal Medicine; Visit Provider Surgery
DX: Z93.2 Ileostomy status (principal); Z85.038 Personal history of other malignant neoplasm of large intestine
CPT/HCPCS: 99213

== ENCOUNTER → 2023-05-18 15:03 | Outpatient (BNVA) | payer OTHER, MEDICARE, SELFPAY | PROVIDERS: PCP Internal Medicine; Visit Provider Surgery ==

== ENCOUNTER 2023-06-21 09:48 | Outpatient (REF) | payer OTHER, MEDICARE, SELFPAY ==
--- NOTE | ~2023-06-21 | FL_ITS ---
EXAMINATION: XR BARIUM ENEMA CLINICAL INFORMATION: Status post partial colectomy for stricture/colon cancer. Surgery requests evaluation of the anastomosis prior to ileostomy reversal. COMPARISON: Barium enema 04/27/2022 TECHNIQUE: Retrograde Gastrografin was inserted through a rectal tube. Multiple spot images were then performed. FINDINGS: There is passage of Gastrografin from the rectum to the distal ileum/ileostomy. The transverse colon anastomosis is widely patent, or evidence of stricture. There is no extravasation of contrast. No masses are seen. No strictures are evident. Mild sigmoid diverticular disease. The appendix filled with contrast. FLUOROSCOPY TIME: 4 minutes 14 seconds 23 static images obtained. 3 Cine runs obtained. DOSE AREA PRODUCT: [id number] uGy-m2 (microgray-meter squared) FL/FL barium enema IMPRESSION: 1. Transverse colon anastomosis is patent, without evidence of stricture or mass. No extravasation of contrast is seen. 2. Contrast flows from the rectum all the way to the distal ileum/ileostomy. No obstruction This procedure was performed by Lewis Gaspar PA-C, and supervised by Dr. Carrasco
[2023-06-21] MEDS: Diatrizoate Meglumine, Sodium 120 ML SOLUTION 600 ML PO (12:28)
== END 2023-06-21 09:49 | disposition home or self-care (01) ==
LOC: HO.XRAY 09:48
PROVIDERS: PCP Internal Medicine; Visit Provider Surgery
DX: Z93.2 Ileostomy status (principal); Z85.038 Personal history of other malignant neoplasm of large intestine
CPT/HCPCS: 74270

== ENCOUNTER → 2023-06-21 09:51 | Outpatient (BNV) | payer OTHER, MEDICARE, SELFPAY | PROVIDERS: PCP Internal Medicine; Visit Provider Physician Assistant Surgical | DX: Z93.2 Ileostomy status (principal) | CPT/HCPCS: 74270 ==

== ENCOUNTER 2023-06-30 13:06 | Outpatient (AMB) | payer OTHER, MEDICARE, SELFPAY ==
--- NOTE | 2023-06-30 13:17 | A.OFFVIS_ITS ---
Intake Vital Signs 06/30/23 13:26 Height 5 ft 4 in Weight 162 lb BMI 27.8 BP 130/67 Blood Pressure Location Lt brachial Position Sitting Pulse 56 Intake Visit Reasons: Barium Enema Results Intake Note: This patient presents for a follow-up assessment for barium enema results. Pt c/o; reports no changes or complaints at this time. 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 blood-glucose meter (FreeStyle Lite Meter kit) As Directed cetirizine 10 mg PO DAILY cholecalciferol (vitamin D3) 25 mcg PO DAILY flash glucose scanning reader (FreeStyle Keily 2 [place]) As directed flash glucose sensor (FreeStyle Keily 2 Sensor kit) APPLY ONCE EVERY 14 DAYS DIRECTED glucagon 3 mg/actuation (Baqsimi) 3 mg intranasal ONCE insulin lispro (Humalog KwikPen (U-100) Insulin) subcutaneously 3 times a day; Use up to 20 units before meals when on dexamethasone lancets (FreeStyle Lancets) Test four times a day or as directed. magnesium oxide 400 mg PO DAILY 90 days multivitamin 1 tab PO DAILY pantoprazole 40 mg PO DAILY pen needle, diabetic Use four times a day or as directed. HPI Barium Enema Results HPI Details 71-year-old male here for follow-up for an diverting loop ileostomy. 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 He had undergone chemotherapy and has completed this. 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 He underwent extensive lysis of adhesion at that time. He has been doing very well otherwise. He still has his diverting loop ileostomy which was done because of the significant edema of the colon along with disparity in diameter of the proximal distal anastomotic limbs. He has good stoma function I had done his colonoscopy last April 2023 and I did not see any obvious lesions. I would sent him for a barium enema study last month as well. This showed the anastomosis in the transverse colon to be patent and intact. [facility] Medical History Ileostomy in place History of colon cancer Small bowel obstruction Coagulase negative Staphylococcus bacteremia Colon cancer Syncope Benign essential hypertension Overweight (BMI 25.0-29.9) Vitamin D deficiency Diabetes mellitus Pure hypercholesterolemia Surgical History History of colonoscopy (~2022) Status post laparotomy History of surgery Status post colon resection (~04/29/22) History of colonoscopy Family History Father Diabetes Hypertension Mother Diabetes Hypertension Mother Colon cancer Unknown Colon cancer Daughter Breast cancer Social History Household Members: Unknown / Unable to assess Housing: House Do you presently have visiting nurse or other home services: Yes (unsure) Unable to assess alcohol history related to: Unknown Alcohol intake: never Patient Tobacco Use Status: Never used Tobacco e-Cigarette/Vaping Use: Never Used Second Hand Smoke Exposure: No Advance Directives Date on File: 12/24/21 service: No Current occupational status: retired Cognitive needs: No Hearing needs: No Vision needs: Yes Review of Systems Const Denies chills and Denies fever(s) Card Denies chest pain, Denies dyspnea and Denies dyspnea on exertion Resp Denies cough, Denies dyspnea and Denies dyspnea on exertion GI Denies hematochezia and Denies change in bowel habits Denies hematuria and Denies difficulty urinating Musc Denies back pain and Denies limited range of motion Neuro Denies focal weakness and Denies convulsions Psych Denies depression and Denies mood swings Physical Exam Vital Signs: Last Vital Signs Pulse 56 06/30/23 13:26 BP 130/67 06/30/23 13:26 BMI result Body Mass Index 27.8 Const General: comfortable and no acute distress Orientation/consciousness: patient oriented x3 Neck Neck: Yes no lymphadenopathy Resp Auscultation: clear to auscultation bilaterally Cardio Rhythm: regular rhythm GI Other: Loop ileostomy in the right side, functioning well, no palpable hernias on the abdominal wall Palpation (GI): Soft to palpation, nontender and no guarding Neuro General: patient oriented x3 Assessment & Plan Assessment & Plan (1) Ileostomy in place: Code(s): Z93.2 - Ileostomy status Plan: He had a loop ileostomy after urgent resection for an obstructing transverse colon cancer. He is doing very well. Colonoscopy did not reveal any other lesions. He had a barium enema study and have reviewed this and this shows the anastomosis in the transverse colon to be intact and patent He wants to proceed with reversal of his loop ileostomy. I reviewed with him the technique of this procedure. I explained the risks including but not limited to bleeding, anastomotic leak, infections, bowel injury, obstruction, inherent risks of anesthesia, as well as the benefits and alternatives. I also discussed to be what to expect postoperatively He is given consent. He is being followed by Dr. Terrell and has been deemed to be cancer free at this time. Coding Level of Care Code Est Pt Level 4 (17015) Diagnoses Ileostomy in place Z93.2
[2023-06-30 13:26] VITALS: BP 130/67; PULSE 56; BMI 27.8
== END 2023-06-30 13:36 | disposition home or self-care (01) ==
PROVIDERS: PCP Internal Medicine; Visit Provider Surgery
DX: Z93.2 Ileostomy status (principal)
CPT/HCPCS: 99214

== ENCOUNTER → 2023-06-30 13:06 | Outpatient (BNVA) | payer OTHER, MEDICARE, SELFPAY | PROVIDERS: PCP Internal Medicine; Visit Provider Surgery ==

== ENCOUNTER → 2023-07-25 14:26 | Outpatient (BNV) | payer OTHER, MEDICARE, SELFPAY | PROVIDERS: Admitting Provider Surgery; PCP Internal Medicine; Visit Provider Internal Medicine Cardiovascular Disease | DX: R00.1 Bradycardia, unspecified (principal); Z01.810 Encounter for preprocedural cardiovascular examination | CPT/HCPCS: 93010 ==

== ENCOUNTER 2023-08-01 14:10 | Outpatient (AMB) | payer OTHER, MEDICARE, SELFPAY ==
--- NOTE | 2023-08-01 14:14 | HO.NEPHOV ---
HPI HPI Comments History of Present Illness Details 72 yr old man with a history of qmy-[id number]-[id number] type 2 diabetes, hypertension, hypercholesterolemia, vitamin-D deficiency with a h/o colon cancer s/p ex lap & resection of transverse colon stricture w/ loop ileostomy on 04/29/22. s/p Chemo He had MARILYNN in May 2022 with creatinine of 10 and K of 7. MARILYNN resolved with hydration He has completed chemotherapy. Creatinine is stable at 1.2 08/01/2023. Scheduled for reversal of colostomy tomorrow. Apparently he is cancer free at this time [facility] Medical History (Updated 07/25/23 @ 13:20 by Bailey Roberts RN) Vitamin B [address] History of colon cancer Small bowel obstruction Coagulase negative Staphylococcus bacteremia Colon cancer Syncope Benign essential hypertension Overweight (BMI 25.0-29.9) Vitamin D deficiency Diabetes mellitus Pure hypercholesterolemia Surgical History History of colonoscopy (~2022) Status post laparotomy History of surgery Status post colon resection (~04/29/22) History of colonoscopy Family History Father Diabetes Hypertension Mother Diabetes Hypertension Mother Colon cancer Unknown Colon cancer Daughter Breast cancer Social History Household Members: Unknown / Unable to assess Housing: House Are you a primary career resource specialist to a significant other at home: No Do you presently have visiting nurse or other home services: No Unable to assess alcohol history related to: Unknown Alcohol intake: never Patient Tobacco Use Status: Never used Tobacco e-Cigarette/Vaping Use: Never Used Second Hand Smoke Exposure: No Advance Directives Date on File: 12/24/21 service: No Current occupational status: retired Cognitive needs: No Hearing needs: No Vision needs: Yes Vital Signs 08/01/23 14:15 Height 5 ft 4 in Weight 163 lb 6 oz BMI 28.0 BP 130/70 Blood Pressure Location Rt brachial Position Sitting Pulse 70 Pulse Source Pulse Oximeter Pulse Oximetry (%) 97 Oxygen Delivery Method Room Air Physical Exam Vital Signs: Last Vital Signs Pulse 70 08/01/23 14:15 BP 130/70 08/01/23 14:15 Pulse Ox 97 08/01/23 14:15 Oxygen Delivery Method Room Air 08/01/23 14:15 BMI result Body Mass Index 28.0 Const General: comfortable Nutritional Appearance: well nourished Orientation/consciousness: patient oriented x3 HEENT Head: No normal to inspection Mouth: moist mucous membranes Neck Neck: Yes supple and Yes no JVD Resp Auscultation: clear to auscultation bilaterally, no rales and rub present Cardio Jugular venous distension: no JVD Palpation: no palpable S3 and no palpable S4 Heart sounds: no rubs GI Palpation (GI): Soft to palpation and nontender Percussion: No Fluid wave present General: Yes no CVA tenderness Back/Spine/Pelvis Back: no CVA tenderness Skin General skin exam: no rashes or lesions noted Neuro General: patient oriented x3 Extrem General: Yes no pedal edema and No clubbing Assessment & Plan Assessment & Plan (1) CKD (chronic kidney disease) stage 3, GFR 30-59 ml/min: Code(s): N18.30 - Chronic kidney disease, stage 3 unspecified Plan h/o MARILYNN superimposed on CKD MARILYNN has resolved Creatinine is back to base line At risk for MARILYNN Encouraged to increase PO fluid intake Avoid nephrotoxins including NSAIDS HTN BP acceptable Stay on low salt diet Ca Colon s/p Chemo Follow with Orders: Orders Complete Blood Count no Diff 4 Months N18.30 - Chronic kidney disease, stage 3 unspecified Basic Metabolic Panel 4 Months N18.30 - Chronic kidney disease, stage 3 unspecified Coding Level of Care Code Est Pt Level 4 (31319) Diagnoses CKD (chronic kidney disease) stage 3, GFR 30-59 ml/min N18.30 Results Reviewed Nephrology Results: Hgb 11.8 g/dl (14.0-18.0) L 06/27/23 WBC 8.0 X10*3/uL (4.8-10.8) 06/27/23 Plt Count 155 X10*3/uL (160-400) L 06/27/23 Sodium 141 mmol/L (135-145) 06/27/23 Potassium 4.0 mmol/L (3.3-5.1) 06/27/23 Chloride 111 mmol/L (96-108) H 06/27/23 Carbon Dioxide 24 mmol/L (22-29) 06/27/23 BUN 17 mg/dL (9-16) H 06/27/23 Creatinine 1.25 mg/dL (0.5-1.4) 06/27/23 Calcium 9.3 mg/dL (8.4-10.2) 06/27/23
[2023-08-01 14:15] VITALS: BP 130/70; PULSE 70; O2SAT 97; BMI 28.0
== END 2023-08-01 14:26 | disposition home or self-care (01) ==
PROVIDERS: PCP Internal Medicine; Visit Provider Internal Medicine Hypertension Specialist
DX: N18.30 Chronic kidney disease, stage 3 unspecified (principal)
CPT/HCPCS: 99214

== ENCOUNTER → 2023-08-01 14:10 | Outpatient (BNVA) | payer OTHER, MEDICARE, SELFPAY | PROVIDERS: PCP Internal Medicine; Visit Provider Internal Medicine Hypertension Specialist ==

== ENCOUNTER 2023-08-02 07:55 | Inpatient (IN) | payer OTHER, MEDICARE, SELFPAY ==
--- NOTE | 2023-07-25 | ECG_ITS ---
Test Reason : preop Blood Pressure : / mmHG Vent. Rate : 052 BPM Atrial Rate : 052 BPM P-R Int : 198 ms QRS Dur : 084 ms QT Int : 360 ms P-R-T Axes : 036 -07 026 degrees QTc Int : 334 ms Sinus bradycardia Otherwise normal ECG When compared with ECG of 28-MAY-2022 10:40, Premature ventricular complexes are no longer Present Vent. rate has decreased BY 30 BPM Referred By: Celia Ahumada Electronically Signed By:HARPER ALLEN MD
[2023-07-25 13:33] VITALS: BP 158/76; PULSE 63; RESP 18; O2SAT 100; BMI 28.5
--- NOTE | 2023-07-25 13:45 | P.CONAN_ITS ---
Documented by User: Celia Ahumada NP 08/01/23 09:04 HPI - Anesthesia Eval Consult details Narrative: 72yo M for Reversal of Loop Ileostomy, 08/02/23 No recent illness No CP/SOB with walking, stairs s/p ex lap, ileostomy 04/2022 with GA- ETT 7 DM. FBS ~ 130-160. A1C = 7.3 03/2023 [facility] Active Problems Active Problems: All Active Problems (Updated 07/25/23 @ 13:20 by Bailey Roberts RN) CKD (chronic kidney disease) stage 3, GFR 30-59 ml/min (Acute) Central retinal artery occlusion of left eye (Acute) Edema (Acute) Diabetes (Acute) Metabolic acidosis (Acute) Stricture of transverse colon (Acute) Right cervical radiculopathy (Acute) Screening for prostate cancer (Acute) Encounter for Medicare annual wellness exam (Acute) Ileostomy in place (Acute) History of colon cancer (Acute) Status post laparotomy (Acute) Small bowel obstruction (Acute) Status post colon resection (Acute ~04/29/22) Colon cancer (Chronic) Benign essential hypertension (Acute) Overweight (BMI 25.0-29.9) (Acute) Vitamin D deficiency (Acute) Diabetes mellitus (Acute) Pure hypercholesterolemia (Acute) Past Medical History Medical History (Updated 07/25/23 @ 13:20 by Bailey Roberts RN) Vitamin B [address] History of colon cancer Small bowel obstruction Coagulase negative Staphylococcus bacteremia Colon cancer Syncope Benign essential hypertension Overweight (BMI 25.0-29.9) Vitamin D deficiency Diabetes mellitus Pure hypercholesterolemia Family History Family History Father Diabetes Hypertension Mother Diabetes Hypertension Mother Colon cancer Unknown Colon cancer Daughter Breast cancer Family history of problems with anesthesia: No Surgical History Surgical History History of colonoscopy (~2022) Status post laparotomy History of surgery Status post colon resection (~04/29/22) History of colonoscopy History of Problems with Anesthesia: No Social History Social History Household Members: Unknown / Unable to assess Housing: House Are you a primary healthcare applications analyst to a significant other at home: No Do you presently have visiting nurse or other home services: No Unable to assess alcohol history related to: Unknown Alcohol intake: never Patient Tobacco Use Status: Never used Tobacco e-Cigarette/Vaping Use: Never Used Second Hand Smoke Exposure: No Advance Directives Date on File: 12/24/21 service: No Current occupational status: retired Cognitive needs: No Hearing needs: No Vision needs: Yes Meds Allergies Allergy/AdvReac Type Severity Reaction Status Date / Time No Known Allergies Allergy Verified 08/01/23 14:17 [No Known Allergies*] Home Medications ?Medication ?Instructions ?Recorded ?Confirmed ?Last Taken ?Type cholecalciferol (vitamin D3) 25 25 mcg PO DAILY 03/10/20 07/25/23 08/01/23 History mcg (1,000 unit) capsule cetirizine 10 mg tablet 10 mg PO DAILY 05/28/22 07/25/23 08/01/23 History alcohol swabs (BD Alcohol Swabs) 0 pad topical QID 09/02/22 07/25/23 Unknown History cyanocobalamin (vitamin B-12) 50 50 mcg PO DAILY 07/25/23 07/25/23 08/01/23 History mcg tablet (Vitamin B-12) glucagon 3 mg/actuation nasal 3 mg intranasal ONCE PRN 07/25/23 07/25/23 08/01/23 History spray (Baqsimi) Hypoglycemia Exam Height,Weight and Vital Signs: Height 5 ft 4 in Weight 75.296 kg Last Vital Signs Pulse 63 07/25/23 13:33 Resp 18 07/25/23 13:33 BP 158/76 H 07/25/23 13:33 Pulse Ox 100 07/25/23 13:33 O2 Del Method Room Air 07/25/23 13:33 Pertinent Lab Results Pertinent Lab Results: Laboratory Tests 06/27/23 13:40 WBC 8.0 Hgb 11.8 L Hct 35.1 L Plt Count 155 L Sodium 141 Potassium 4.0 Chloride 111 H Carbon Dioxide 24 BUN 17 H Creatinine 1.25 Narrative Narrative: EKG 07/2023 Vent. Rate : 052 BPM Atrial Rate : 052 BPM P-R Int : 198 ms QRS Dur : 084 ms QT Int : 360 ms P-R-T Axes : 036 -07 026 degrees QTc Int : 334 ms Sinus bradycardia Otherwise normal ECG When compared with ECG of 28-MAY-2022 10:40, Premature ventricular complexes are no longer Present Vent. rate has decreased BY 30 BPM ECHO 2022 Conclusions: - Essentially normal study Airway Mallampati Class: II TM Dist: >3cm Neck ROM: Full Loose/Missing/Broken Teeth: Yes (Missing molars) Heart: RRR Lungs: CTAB Assessment and Plan Assessment Anesthesia Assessment: Anesthesia Plan Discussed and PAT Visit Final Anesthetic Review Family History of Problems with Anesthesia: No History of Problems with Anesthesia: No Documented by User: Roberto Dang MD 08/02/23 07:40 PMF Past Medical History Medical History (Updated 07/25/23 @ 13:20 by Bailey Roberts RN) Vitamin B [address] History of colon cancer Small bowel obstruction Coagulase negative Staphylococcus bacteremia Colon cancer Syncope Benign essential hypertension Overweight (BMI 25.0-29.9) Vitamin D deficiency Diabetes mellitus Pure hypercholesterolemia Family History Family History Father Diabetes Hypertension Mother Diabetes Hypertension Mother Colon cancer Unknown Colon cancer Daughter Breast cancer Surgical History Surgical History History of colonoscopy (~2022) Status post laparotomy History of surgery Status post colon resection (~04/29/22) History of colonoscopy Social History Social History Household Members: Unknown / Unable to assess Housing: House Are you a primary healthcare applications analyst to a significant other at home: No Do you presently have visiting nurse or other home services: No Unable to assess alcohol history related to: Unknown Alcohol intake: never Patient Tobacco Use Status: Never used Tobacco e-Cigarette/Vaping Use: Never Used Second Hand Smoke Exposure: No Advance Directives Date on File: 12/24/21 service: No Current occupational status: retired Cognitive needs: No Hearing needs: No Vision needs: Yes Meds Allergies Allergy/AdvReac Type Severity Reaction Status Date / Time No Known Allergies Allergy Verified 08/01/23 14:17 [No Known Allergies*] Home Medications ?Medication ?Instructions ?Recorded ?Confirmed ?Last Taken ?Type cholecalciferol (vitamin D3) 25 25 mcg PO DAILY 03/10/20 07/25/23 08/01/23 History mcg (1,000 unit) capsule cetirizine 10 mg tablet 10 mg PO DAILY 05/28/22 07/25/23 08/01/23 History alcohol swabs (BD Alcohol Swabs) 0 pad topical QID 09/02/22 07/25/23 Unknown History cyanocobalamin (vitamin B-12) 50 50 mcg PO DAILY 07/25/23 07/25/23 08/01/23 History mcg tablet (Vitamin B-12) glucagon 3 mg/actuation nasal 3 mg intranasal ONCE PRN 07/25/23 07/25/23 08/01/23 History spray (Baqsimi) Hypoglycemia Assessment and Plan Final Anesthetic Review NPO: Yes ASA Class: III Final Preanesthetic Review: No Changes in Pt Med Stat, Meds/Allgs Chart Reviewed, Consent Obtained/Reviewed and Anes Risks/Benef Reviewed Patient Risk: Intermediate Procedure Risk: Intermediate Anesthetic Plan Anesthetic Plan: GA and Agree w/ Assess. and Plan Disposition: Standard PACU
[2023-08-02] VITALS (8 sets, daily range): BP systolic 129–157; BP diastolic 60–73; PULSE 54–71; RESP 12–18; TEMP 36.2–36.6; O2SAT 98–100; BMI 28.4
[2023-08-02] MEDS: Lactated Ringers 1,000 ML 100 ML IVCONT (07:23)
--- NOTE | 2023-08-02 07:48 | MHC.SHP ---
Pre-Procedural Eval Section A - 24 Hr Update-Section A only Date of Service: 08/02/23 Section B - Complete if H&P > 30 days Chief Complaint: Ileostomy status Details of Present Illness: has diverting loop ileostomy after emergent transverse colon resection for obstructing colon cancer in Apr 2022; had ex lap for SBO with adhesions in June 2022 Relevant Family History (Specify if Yes): No Relevant Social History: None Present Medications: see Short Stay Collaborative assessment Medical History: Significant History (colon cancer, CKD, DM) Allergies: Allergies Allergy/AdvReac Type Severity Reaction Status Date / Time No Known Allergies Allergy Verified 08/01/23 14:17 [No Known Allergies*] Review of Systems Sugical H&P ROS: Negative: Constitution, Cardiovascular, Respiratory, Neurological, Psychiatric, Hem-Onc, Allergic/Immunologic, Gastrointestinal, Genitourinary, Musculoskeletal, Integumentary, Endocrine and Eyes/Ears/Nose/Throat Exam Surgical H&P Exam: Normal: HEENT, Normal: Heart, Normal: Lungs, Normal: Extremities, Normal: Skin and Normal: Neurological and Significant Findings: Abdomen (ileostomy on right side) Plan Diagnosis/Plan: Unchanged I have reviewed the history and physical and performed a pertinent physical examination on my patient. No changes have occurred unless specified. Time Spent With Patient Time: Total time managing care of this patient today ____ minutes.
--- NOTE | 2023-08-02 08:04 | PHA.MEDREC ---
Pharmacy Consult ? Medication Reconciliation Pharmacy has completed the medication reconciliation. Reviewed med rec done by nursing
[2023-08-02 09:03] LABS: Glucose, Whole Blood 159 mg/dL (60-115)
--- NOTE | 2023-08-02 09:09 | P.OP_ITS ---
Operative Note Operative Note Date of Service: 08/02/23 Narrative: Preop diagnosis: Presence of loop ileostomy Postop diagnosis: The same Procedure: Reversal of loop ileostomy with [id number] anastomosis Surgeon: Darion Fam MD engineering inspection assistant: KOLBY Hernandez The patient is a 72-year-old male with a history of segmental transverse colon resection for a malignant obstruction and had a diverting loop ileostomy at that time. He also has a history of laparotomy pads of small-bowel obstruction 2 months after He is here for reversal of his loop ileostomy. His barium enema study shows the transverse colon anastomosis to be patent and intact. He understood the technique of the planned procedure as well as the risks, benefits, and alternatives. He was brought to the operating room. He was placed supine under general anesthesia via endotracheal tube. The abdomen was prepped and draped in usual sterile fashion. Prior to that, I closed both afferent and efferent openings of the loop ileostomy with a running Polysorb 2-0 stitch I made an incision around the ileostomy on the skin blade 15 in an elliptical fashion. This was carried down through the full-thickness of thick amounts of subcutaneous fat until I exposed the fascia. I then proceeded to gently dissect around the fascia to identify the interface between the bowel wall and the fascial edge. Once this was identified I circumferentially proceeded to define this interface with a combination of sharp dissection Metzenbaum scissors as well as electrocautery. After this was achieved, a 1 area of the bowel wall away from the fascial edge with CT careful dissection with Metzenbaum scissors. I was therefore able to enter the peritoneal cavity. I followed this well-defined plane and continued to do sharp dissection with electrocautery as well as with fine dissection with Metzenbaum scissors to separate the entire fascial edge from the ileostomy itself. This part of the procedure took some time. Eventually, as able to free up the entire ileostomy. I was able to define both limbs. I transected both limbs separately below the ileostomy level using GINA 60 mm staplers. I opened up the apex of each staple line with curved Landa scissors. I entered the lumen and defined both the anti mesenteric margins. I lined this margins together. I positioned each arm of the GINA 60 mm stapler into the lumen at the anti mesenteric margin. I closed the stapler. I made sure there was no bowel loop or mesentery caught between the staple line. The stapler was fired to create our [id number] anastomosis. The lumen was examined. The staple line appeared intact and nonbleeding. I completed the anastomosis by closing the enterotomy with a TA 60 mm stapler. I examined the staple lines and these all appeared intact and viable. I applied seromuscular sutures at the crotch of the anastomosis to release any tension using Polysorb 3-0 sutures Re-examined for hemostasis. Once hemostasis was confirmed, I proceeded to then reduce the bowel loops back into the peritoneal cavity through the stoma opening. I closed the fascia with a running Maxon 1 stitch in a longitudinal fashion I copiously irrigated the thick subcutaneous layer. I closed the skin loosely with skin sindy. The area on the incision was infiltrated with Marcaine 0.5 footprint for postop analgesia. Dressings were applied. The procedure was completed. The patient tolerated procedure well. There were no immediate complications. Initial final counts of sponges and instruments were correct. Estimated blood loss was about 25 cc. The patient was extubated without difficulty and transferred to the recovery room with stable vital signs.
[2023-08-02] MEDS: Lactated Ringers 1,000 ML 80 ML IVCONT (10:38)
[2023-08-02] MEDS: 0.9 % Sodium Chloride Flush 3 ML SYRINGE IVFLUSH (10:43)
[2023-08-02] MEDS: Acetaminophen 1,000 MG/100 ML PIGGYBACK 400 MG IV ×3 (10:44→21:27)
[2023-08-02 11:17] LABS: Glucose, Whole Blood 166 mg/dL (60-115)
--- NOTE | 2023-08-02 15:29 | PM.EVENT ---
Event Note Date of Service: 08/02/23 Event Note: seen postop s/p reversal of ileostomy appears comfortable stable postop abd soft pain mgt on clears Arin updated Time Spent With Patient Time: Total time managing care of this patient today ____ minutes.
[2023-08-02 16:31] LABS: Glucose, Whole Blood 167 mg/dL (60-115)
[2023-08-02] MEDS: Insulin Lispro 100 UNIT/ML 3 ML VIAL SUBCUT ×2 (17:36→21:27)
[2023-08-02 20:20] LABS: Glucose, Whole Blood 175 mg/dL (60-115)
[2023-08-02] MEDS: Atorvastatin Calcium 10 MG TABLET PO (21:26)
[2023-08-03] MEDS: Lactated Ringers 1,000 ML 80 ML IVCONT ×2 (01:01→11:07)
[2023-08-03 03:10] VITALS: BP 138/65; PULSE 62; RESP 18; TEMP 36.1; O2SAT 97
[2023-08-03] MEDS: Acetaminophen 1,000 MG/100 ML PIGGYBACK 400 MG IV ×4 (04:11→21:32)
[2023-08-03 07:08] LABS: Glucose, Whole Blood 114 mg/dL (60-115)
[2023-08-03 07:14] VITALS: BP 162/73; PULSE 60; RESP 12; TEMP 36.2; O2SAT 98
[2023-08-03 07:14] LABS: MANUAL DIFF FLAG NO
[2023-08-03 07:33] LABS: Anion Gap 10 (12-20); Blood Urea Nitrogen 12 mg/dL (9-16); Calcium 8.2 mg/dL (8.4-10.2); Carbon Dioxide 23 mmol/L (22-29); Chloride 110 mmol/L (96-108); Creatinine Clr Calc Pharmacy 61.2; Estimated Glomerular Filt Rate > 60; Glucose Fasting 132 mg/dL (60-99); Potassium 3.6 mmol/L (3.3-5.1); Sodium 139 mmol/L (135-145)
[2023-08-03 07:43] LABS: Basophils Percent Auto 0.3 % (0-2); Eosinophils Absolute Auto 0.4 X10*3/uL (0.0-0.4); Eosinophils Percent Auto 4.5 % (0-4); Hematocrit 36.5 % (42.0-52.0); Hemoglobin 12.3 g/dl (14.0-18.0); Imm Gran Abs Auto 0.04 X10*3/uL (0.00-0.03); Imm Gran Pct Auto 0.4 % (0.0-0.4); Mean Corpuscular HGB Conc 33.7 g/dl (31.0-36.0); Mean Corpuscular Hemoglobin 27.2 pg (27.0-33.0); Mean Corpuscular Volume 80.8 fL (80.0-98.0); Mean Platelet Volume 10.5 fL (9.4-12.4); Monocytes Absolute Auto 0.7 X10*3/uL (0.1-1.2); Monocytes Percent Auto 7.4 % (2-11); Neutrophils Absolute Auto 7.2 x10*3/uL (2.0-8.3); Neutrophils Percent Auto 76.4 % (45-73); Platelet Count 117 X10*3/uL (160-400); Red Blood Count 4.52 X10*6/uL (4.60-5.80); Red Cell Distribution Width 14.2 % (11.0-16.0); White Blood Count 9.5 X10*3/uL (4.8-10.8)
--- NOTE | 2023-08-03 07:51 | PM.PNGS ---
Subjective Subjective Date of Service: 08/03/23 <Crystal Hernandez PA-C - Last Filed: 08/03/23 07:55> 08/04/23 <Darion Fam MD - Last Filed: 08/04/23 08:37> Interval history: Feels well this morning. Pain is mild and controlled. Tolerating clear liquids without nausea. Denies flatus. OOB to bathroom. <Crystal Hernandez PA-C - Last Filed: 08/03/23 07:55> Physical Exam Vital Signs: Vital Signs: Last Vital Signs Temp 97.1 F 08/03/23 07:14 Pulse 60 08/03/23 07:14 Resp 12 08/03/23 07:14 BP 162/73 H 08/03/23 07:14 Pulse Ox 98 08/03/23 07:14 O2 Del Method Room Air 08/03/23 07:14 O2 Flow Rate 1 08/02/23 10:39 BMI result Body Mass Index 28.4 <Crystal Hernandez PA-C - Last Filed: 08/03/23 07:55> Const: General: comfortable, no acute distress and alert <Crystal Hernandez PA-C - Last Filed: 08/03/23 07:55> Orientation/consciousness: patient oriented x3 <GEOVANY Swanson Last Filed: 08/03/23 07:55> Resp: Effort & Inspection: normal respiratory effort <Crystal Hernandez PA-C - Last Filed: 08/03/23 07:55> GI: Other: dressing c/d/i <Crystal Hernandez PA-C - Last Filed: 08/03/23 07:55> Inspection: No distended <GEOVANY Swanson Last Filed: 08/03/23 07:55> Palpation (GI): Soft to palpation, Tenderness to palpation present (GI) (mild) and no guarding <GEOVANY Swanson Last Filed: 08/03/23 07:55> Skin: General skin exam: no rashes or lesions noted <GEOVANY Swanson Last Filed: 08/03/23 07:55> Neuro: General: patient oriented x3 <Crystal Hernandez PA-C - Last Filed: 08/03/23 07:55> Objective Data Active Medications Amlodipine Besylate (Amlodipine Besylate 2.5 Mg Tablet) 2.5 mg PO DAILY [facility]; Protocol Atorvastatin Calcium (Atorvastatin Calcium 10 Mg Tablet) 10 mg PO BEDTIME [facility] Last Admin: 08/02/23 21:26 Dose: 10 mg Documented By: GEORGI Glucose (Glucose Gel 15 Gm Gel..Gram.) 15 gm PO Q15M PRN; Protocol PRN Reason: per Hypoglycemia Standing Ord. Heparin Sodium (Porcine) (Heparin Sodium,Porcine 5,000 Unit/Ml Vial) 5,000 unit SUBCUT Q12H [facility] Lactated Ringer's (Lr) 1,000 mls @ 80 mls/hr IVCONT .[id number] [facility] Last Admin: 08/03/23 01:01 Dose: 80 mls/hr Documented By: GEORGI Dextrose (D10) 250 mls @ 750 mls/hr IV Q15M PRN; Protocol PRN Reason: per Hypoglycemia Standing Ord. Acetaminophen (Ofirmev) 1,000 mg in 100 mls @ 400 mls/hr IV Q6H [facility] Last Infusion: 08/03/23 04:56 Dose: Infused Documented By: GEORGI Insulin Human Lispro (Insulin Lispro 100 Unit/Ml 3 Ml Vial) 0 unit SUBCUT QIDACHS [facility]; Protocol Last Admin: 08/02/23 21:27 Dose: 2 unit Documented By: GEORGI Loratadine (Loratadine 10 Mg Tablet) 10 mg PO DAILY [facility] Magnesium Oxide (Magnesium Oxide 400 Mg Tablet) 400 mg PO DAILY [facility] Morphine Sulfate (Morphine Sulfate 4 Mg/Ml Cartridge) 4 mg IVPUSH Q4H PRN; Protocol PRN Reason: Pain, Severe (Pain Scale 7-10) Omeprazole (Omeprazole 20 Mg Capsule.Dr) 20 mg PO DAILY@0630 [facility] Oxycodone HCl (Oxycodone Hcl Immed Release 5 Mg Tablet) 5 mg PO Q4H PRN PRN Reason: Pain, Moderate(Pain Scale 4-6) Sodium Chloride (0.9 % Sodium Chloride Flush 3 Ml Syringe) 3 ml IVFLUSH QSHIFT [facility] Last Admin: 08/03/23 00:08 Dose: Not Given Documented By: GEORGI Non-Admin Reason: IV Running <Crystal Hernandez PA-C - Last Filed: 08/03/23 07:55> Labs CBC & Chem 7: 08/03/23 07:03 08/03/23 07:03 <Crystal Hernandez PA-C - Last Filed: 08/03/23 07:55> Labs: Laboratory Results - last 24 hr 08/02/23 08/02/23 08/02/23 07:14 11:13 16:22 MCV MCH MCHC RDW Plt Count MPV Immature Gran % (Auto) Neut % (Auto) Lymph % (Auto) Oliver % (Auto) Eos % (Auto) Baso % (Auto) Lymph # (Auto) Oliver # (Auto) Eos # (Auto) Baso # (Auto) Abs Immat Gran (auto) Absolute Neuts (auto) Absolute Nucleated RBC Nucleated RBC % (auto) Anion Gap Estim Creat Clear Calc Estimated GFR POC Glucose 159 H 166 H 167 H Fasting Glucose Calcium 08/02/23 08/03/23 08/03/23 20:12 07:03 07:04 MCV 80.8 MCH 27.2 MCHC 33.7 RDW 14.2 Plt Count 117 L MPV 10.5 Immature Gran % (Auto) 0.4 Neut % (Auto) 76.4 H Lymph % (Auto) 11.0 L Oliver % (Auto) 7.4 Eos % (Auto) 4.5 H Baso % (Auto) 0.3 Lymph # (Auto) 1.0 L Oliver # (Auto) 0.7 Eos # (Auto) 0.4 Baso # (Auto) 0.0 Abs Immat Gran (auto) 0.04 H Absolute Neuts (auto) 7.2 Absolute Nucleated RBC 0.000 Nucleated RBC % (auto) 0.0 Anion Gap 10 L Estim Creat Clear Calc 61.2 Estimated GFR > 60 POC Glucose 175 H 114 Fasting Glucose 132 H Calcium 8.2 L D <Crystal Hernandez PA-C - Last Filed: 08/03/23 07:55> Procedures Date of Service Date of Service: 08/03/23 <Crystal Hernandez PA-C - Last Filed: 08/03/23 07:55> 08/04/23 <Darion Fam MD - Last Filed: 08/04/23 08:37> Progress Note: A&P Assessment and plan (1) S/P closure of ileostomy: Status: Acute <Crystal Hernandez PA-C - Last Filed: 08/03/23 07:55> Assessment and Plan: tolerating clears denies flatus feels well abd soft dressings dry await return of GI function OOB, ambulate seen and examined independently <Darion Fam MD - Last Filed: 08/04/23 08:37> Assessment and Plan: POD #1 s/p reversal of loop ileostomy with [id number]-[id number] anastomosis. Doing well post op. Tolerating clear liquids without nausea or vomiting. No evidence of GI function. Hemodynamically stable. Abd exam benign with appropriate post op tenderness, dry/intact dressing. Cont clear liquids for now, await return of GI function. Encouraged increasing activity, OOB/ambulation. IS use. <Crystal Hernandez PA-C - Last Filed: 08/03/23 07:55> Time Spent With Patient Time: Total time managing care of this patient today ____ minutes. <Crystal Hernandez PA-C - Last Filed: 08/03/23 07:55> Quality Stroke Does the patient have a stroke diagnosis?: No <Crystal Hernandez PA-C - Last Filed: 08/03/23 07:55> VTE Prior VTE?: No <Crystal Hernandez PA-C - Last Filed: 08/03/23 07:55> VTE Risk Level:: Medical - moderate - high <Crystal Hernandez PA-C - Last Filed: 08/03/23 07:55> VTE Device Contraindication: N/A - Device Ordered <Crystal Hernandez PA-C - Last Filed: 08/03/23 07:55> VTE Drug Contraindication: N/A - Med Ordered <Crystal Hernandez PA-C - Last Filed: 08/03/23 07:55>
[2023-08-03] MEDS: amLODIPine Besylate 2.5 MG TABLET PO (08:00)
[2023-08-03] MEDS: Omeprazole 20 MG CAPSULE.DR PO (08:00)
[2023-08-03] MEDS: Loratadine 10 MG TABLET PO (08:00)
[2023-08-03] MEDS: Magnesium Oxide 400 MG TABLET PO (08:00)
--- NOTE | 2023-08-03 08:46 | MHC.CM.PN ---
PT REPORTS HE LIVES WITH HIS AND IS INDEPENDENT WITH CARE HE HAS NO DME AND NO SERVICES HCP ON FILE PCP: DAREN DYE IMM DELIVERED DCP: HOME NO SERVICES VIA PRIVATE TRANSPORT
[2023-08-03] MEDS: Heparin Sodium,Porcine 5,000 UNIT/ML VIAL 5000 UNIT SUBCUT ×2 (11:03→21:32)
[2023-08-03 11:40] LABS: Glucose, Whole Blood 160 mg/dL (60-115)
[2023-08-03] MEDS: Insulin Lispro 100 UNIT/ML 3 ML VIAL SUBCUT (11:52)
[2023-08-03 15:25] VITALS: BP 150/71; PULSE 66; RESP 18; TEMP 36.4; O2SAT 98
--- NOTE | 2023-08-03 16:06 | PM.EVENT ---
Event Note Date of Service: 08/03/23 Event Note: Feels well Good pain control Tolerating clear liquids Denies flatus Abdomen soft and benign Clinically looks well Will keep on clear liquids for now Await full return of GI function Family at bedside Ambulate Time Spent With Patient Time: Total time managing care of this patient today ____ minutes.
[2023-08-03 16:08] LABS: Glucose, Whole Blood 90 mg/dL (60-115)
--- NOTE | 2023-08-03 18:20 | PC.NURSE ---
Pt passing flatus. One output of white mucousy substance per rectum in BR. Ambulating in [place] independently
[2023-08-03 20:00] VITALS: BP 148/62; PULSE 72; RESP 18; TEMP 36.6; O2SAT 98
[2023-08-03 20:10] LABS: Glucose, Whole Blood 133 mg/dL (60-115)
[2023-08-03] MEDS: Atorvastatin Calcium 10 MG TABLET PO (21:32)
--- NOTE | 2023-08-03 22:10 | PC.NURSE ---
Pt aox 3, lying comfortably in bed on assessment. Lungs CTA, abd soft, non tender except slightly at site of reversal, +BS x 4- +flatulence, and mucousy stools via rectum x 4 this day per pt report. +PP, no edema noted. Pain is 0 at beginning of shift, at 2/10 to abd at time of med admisitration. denies any other needs at this time will continue to mointor.
--- NOTE | 2023-08-03 22:12 | PC.NURSE ---
Dressing to reversal site at abd is CDI
[2023-08-04] MEDS: 0.9 % Sodium Chloride Flush 3 ML SYRINGE IVFLUSH ×2 (00:34→08:44)
[2023-08-04] MEDS: Lactated Ringers 1,000 ML 80 ML IVCONT (00:34)
[2023-08-04 03:47] VITALS: BP 137/62; PULSE 68; RESP 20; TEMP 36.3; O2SAT 98
[2023-08-04] MEDS: Acetaminophen 1,000 MG/100 ML PIGGYBACK 400 MG IV (04:23)
[2023-08-04] MEDS: Omeprazole 20 MG CAPSULE.DR PO (06:09)
--- NOTE | 2023-08-04 07:40 | PM.PNGS ---
Subjective Subjective Date of Service: 08/04/23 <Crystal Hernandez PA-C - Last Filed: 08/04/23 07:44> 08/04/23 <Darion Fam MD - Last Filed: 08/04/23 08:37> Interval history: Feels well. Has been passing consistent flatus and mucous via rectum. Tolerating clears. Is hungry and would like solid food. <Crystal Hernandez PA-C - Last Filed: 08/04/23 07:44> Physical Exam Vital Signs: Vital Signs: Last Vital Signs Temp 97.3 F 08/04/23 03:47 Pulse 68 08/04/23 03:47 Resp 20 08/04/23 03:47 BP 137/62 08/04/23 03:47 Pulse Ox 98 08/04/23 03:47 O2 Del Method Room Air 08/04/23 03:47 O2 Flow Rate 1 08/02/23 10:39 BMI result Body Mass Index 28.4 <Crystal Hernandez PA-C - Last Filed: 08/04/23 07:44> Const: General: comfortable, no acute distress and alert <Crystal Hernandez PA-C - Last Filed: 08/04/23 07:44> Orientation/consciousness: patient oriented x3 <Crystal Hernandez PA-C - Last Filed: 08/04/23 07:44> Resp: Effort & Inspection: normal respiratory effort <Crystal Hernandez PA-C - Last Filed: 08/04/23 07:44> GI: Inspection: No distended and Yes incision (dressing intact) <Crystal Hernandez PA-C - Last Filed: 08/04/23 07:44> Palpation (GI): Soft to palpation, Tenderness to palpation present (GI) (mild incisional) and no guarding <GEOVANY Swanson Last Filed: 08/04/23 07:44> Skin: General skin exam: no rashes or lesions noted <GEOVANY Swanson Last Filed: 08/04/23 07:44> Neuro: General: patient oriented x3 and moves all extremities <Crystal Hernandez PA-C - Last Filed: 08/04/23 07:44> Objective Data Active Medications Amlodipine Besylate (Amlodipine Besylate 2.5 Mg Tablet) 2.5 mg PO DAILY [facility]; Protocol Last Admin: 08/03/23 08:00 Dose: 2.5 mg Documented By: PAPO Atorvastatin Calcium (Atorvastatin Calcium 10 Mg Tablet) 10 mg PO BEDTIME [facility] Last Admin: 08/03/23 21:32 Dose: 10 mg Documented By: DORIS Glucose (Glucose Gel 15 Gm Gel..Gram.) 15 gm PO Q15M PRN; Protocol PRN Reason: per Hypoglycemia Standing Ord. Heparin Sodium (Porcine) (Heparin Sodium,Porcine 5,000 Unit/Ml Vial) 5,000 unit SUBCUT Q12H [facility] Last Admin: 08/03/23 21:32 Dose: 5,000 unit Documented By: DORIS Dextrose (D10) 250 mls @ 750 mls/hr IV Q15M PRN; Protocol PRN Reason: per Hypoglycemia Standing Ord. Acetaminophen (Ofirmev) 1,000 mg in 100 mls @ 400 mls/hr IV Q6H [facility] Last Infusion: 08/04/23 04:38 Dose: Infused Documented By: ARMANDO Insulin Human Lispro (Insulin Lispro 100 Unit/Ml 3 Ml Vial) 0 unit SUBCUT QIDACHS [facility]; Protocol Last Admin: 08/03/23 21:45 Dose: Not Given Documented By: DORIS Non-Admin Reason: No Insulin Coverage Loratadine (Loratadine 10 Mg Tablet) 10 mg PO DAILY [facility] Last Admin: 08/03/23 08:00 Dose: 10 mg Documented By: PAPO Magnesium Oxide (Magnesium Oxide 400 Mg Tablet) 400 mg PO DAILY [facility] Last Admin: 08/03/23 08:00 Dose: 400 mg Documented By: PAPO Morphine Sulfate (Morphine Sulfate 4 Mg/Ml Cartridge) 4 mg IVPUSH Q4H PRN; Protocol PRN Reason: Pain, Severe (Pain Scale 7-10) Omeprazole (Omeprazole 20 Mg Capsule.) 20 mg PO DAILY@0630 [facility] Last Admin: 08/04/23 06:09 Dose: 20 mg Documented By: ARMANDO Oxycodone HCl (Oxycodone Hcl Immed Release 5 Mg Tablet) 5 mg PO Q4H PRN PRN Reason: Pain, Moderate(Pain Scale 4-6) Sodium Chloride (0.9 % Sodium Chloride Flush 3 Ml Syringe) 3 [facility] Last Admin: 08/04/23 00:34 Dose: 3 ml Documented By: ARMANDO <Crystal Hernandez PA-C - Last Filed: 08/04/23 07:44> Labs CBC & Chem 7: 08/03/23 07:03 08/03/23 07:03 <Crystal Hernandez PA-C - Last Filed: 08/04/23 07:44> Labs: Laboratory Results - last 24 hr 08/03/23 08/03/23 08/03/23 07:03 11:36 15:57 MCV 80.8 MCH 27.2 MCHC 33.7 RDW 14.2 Plt Count 117 L MPV 10.5 Immature Gran % (Auto) 0.4 Neut % (Auto) 76.4 H Lymph % (Auto) 11.0 L [place] % (Auto) 7.4 Eos % (Auto) 4.5 H Baso % (Auto) 0.3 Lymph # (Auto) 1.0 L [place] # (Auto) 0.7 Eos # (Auto) 0.4 Baso # (Auto) 0.0 Abs Immat Gran (auto) 0.04 H Absolute Neuts (auto) 7.2 Absolute Nucleated RBC 0.000 Nucleated RBC % (auto) 0.0 POC Glucose 160 H 90 08/03/23 19:59 MCV MCH MCHC RDW Plt Count MPV Immature Gran % (Auto) Neut % (Auto) Lymph % (Auto) [place] % (Auto) Eos % (Auto) Baso % (Auto) Lymph # (Auto) [place] # (Auto) Eos # (Auto) Baso # (Auto) Abs Immat Gran (auto) Absolute Neuts (auto) Absolute Nucleated RBC Nucleated RBC % (auto) POC Glucose 133 H <Crystal Hernandez PA-C - Last Filed: 08/04/23 07:44> Procedures Date of Service Date of Service: 08/04/23 <Crystal Hernandez PA-C - Last Filed: 08/04/23 07:44> 08/04/23 <Darion Fam MD - Last Filed: 08/04/23 08:37> Progress Note: A&P Assessment and plan (1) S/P closure of ileostomy: Status: Acute <Crystal Hernandez PA-C - Last Filed: 08/04/23 07:44> Assessment and Plan: Passing flatus Denies significant pain Feels well overall Tolerating clear liquids Advance diet Doing well postop Incision site clean Seen and examined independently <Darion Fam MD - Last Filed: 08/04/23 08:37> Assessment and Plan: POD #2s/p reversal of loop ileostomy with [id number] anastomosis. Doing well post op with return of GI function. Hemodynamically stable. Abd exam benign with appropriate post op tenderness, will return to remove dressing later. Advance to solid diet. Encouraged increasing activity, OOB/ambulation. IS use. Possible home later today if tolerating diet. <Crystal Hernandez PA-C - Last Filed: 08/04/23 07:44> Time Spent With Patient Time: Total time managing care of this patient today ____ minutes. <Crystal Hernandez PA-C - Last Filed: 08/04/23 07:44> Quality Stroke Does the patient have a stroke diagnosis?: No <Crystal Hernandez PA-C - Last Filed: 08/04/23 07:44> VTE Prior VTE?: No <Crystal Hernandez PA-C - Last Filed: 08/04/23 07:44> VTE Risk Level:: Medical - moderate - high <Crystal Hernandez PA-C - Last Filed: 08/04/23 07:44> VTE Device Contraindication: N/A - Device Ordered <Crystal Hernandez PA-C - Last Filed: 08/04/23 07:44> VTE Drug Contraindication: N/A - Med Ordered <Crystal Hernandez PA-C - Last Filed: 08/04/23 07:44>
[2023-08-04 07:51] LABS: Glucose, Whole Blood 124 mg/dL (60-115)
[2023-08-04 08:00] VITALS: BP 146/67; PULSE 77; RESP 14; TEMP 36.4; O2SAT 95
[2023-08-04] MEDS: Loratadine 10 MG TABLET PO (08:43)
[2023-08-04] MEDS: amLODIPine Besylate 2.5 MG TABLET PO (08:43)
[2023-08-04] MEDS: Magnesium Oxide 400 MG TABLET PO (08:43)
[2023-08-04] MEDS: Heparin Sodium,Porcine 5,000 UNIT/ML VIAL 5000 UNIT SUBCUT (10:57)
[2023-08-04 11:31] LABS: Glucose, Whole Blood 209 mg/dL (60-115)
[2023-08-04] MEDS: Insulin Lispro 100 UNIT/ML 3 ML VIAL SUBCUT (12:01)
--- NOTE | 2023-08-04 13:22 | PM.EVENT ---
Event Note Date of Service: 08/04/23 Event Note: Tolerated both lunch breakfast well denies abdominal pain Passing good amounts of flatus Good vital signs Abdomen remained soft, benign, incision clean He looks well clinically He says he is ready to go home Okay to DC home this afternoon Instructions reinforced with patient and his Follow-up in the office Time Spent With Patient Time: Total time managing care of this patient today ____ minutes.
--- NOTE | 2023-08-04 13:31 | MHC.CM.PN ---
Patient medically cleared for dc home self care. will provide transportation home ~1400. RN aware. IMM was delivered 08/02.
--- NOTE | 2023-08-05 09:59 | PM.DS ---
DS: Providers Provider Date of Service: 08/04/23 Date of admission: 08/02/23 07:55 Date of discharge: 08/04/23 Primary care physician: Bimal Lepe MD Attending physician on admission: Darion Fam Attending physician on discharge: Darion Fam DS: Diagnosis Discharge Diagnosis (1) S/P closure of ileostomy: Status: Acute DS: Summary Hospital Course Hospital Course: HPI AT ADMISSION: 71-year-old male here for follow-up for an diverting loop ileostomy. 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 He had undergone chemotherapy and has completed this. 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 He underwent extensive lysis of adhesion at that time. He has been doing very well otherwise. He still has his diverting loop ileostomy which was done because of the significant edema of the colon along with disparity in diameter of the proximal distal anastomotic limbs. He has good stoma function. He had a colonoscopy April 2023 and no obvious lesions were seen. He was sent for a barium enema study which showed the anastomosis in the transverse colon to be patent and intact. HOSPITAL COURSE: On 08/02/23, a reversal of loop ileostomy with [id number] anastomosis was performed by Dr. Fam without complication. The patient tolerated the procedure well and was admitted post operatively for observation. He had an uncomplicated recovery course. On POD #1, he felt well with good pain control and was tolerating clear liquids without nausea or vomiting. He was ambulated. The following day he was passing flatus and had a small BM. His diet was advanced to solids. He was reassessed later in the day and was tolerating a solid diet and had a benign abdomen with clean incision. He felt ready for discharge to home. He was discharged to home on 08/04/23 in stable condition. Status at Discharge Functional status at discharge: independent ambulation Overall status at discharge: patient is progressing back to baseline Time Attestation Discharge Coordination Time (in mins): 30 Quality: Safe Use of Opioids Does Pt have an Active Cancer Diagnosis on the Problem List?: No Quality: Stroke Does the patient have a stroke diagnosis?: No Physical Exam Vital Signs: Vital Signs: Last Vital Signs Temp 97.6 F 08/04/23 08:00 Pulse 77 08/04/23 08:00 Resp 14 08/04/23 08:00 BP 146/67 H 08/04/23 08:00 Pulse Ox 95 08/04/23 08:00 O2 Del Method Room Air 08/04/23 08:00 O2 Flow Rate 1 08/02/23 10:39 BMI result Body Mass Index 28.4 Const: Orientation/consciousness: patient oriented x3 Resp: Effort & Inspection: normal respiratory effort GI: Inspection: No distended and Yes incision (clean) Palpation (GI): Soft to palpation Skin: General skin exam: no rashes or lesions noted Neuro: General: patient oriented x3 DS: Data Data Completed and Pending Completed studies during hospitalization [Text1]: 08/02/23 08:48 Surgical [PTH] Routine Ileostomy, reversal: Inflamed enterocutaneous tissue, consistent with ileostomy; negative for malignancy. Procedures Bypass Ileum to Cutaneous, Open Approach (04/26/22) Excision of Transverse Colon, Open Approach (04/26/22) Release Small Intestine, Open Approach (07/19/22) Labs on day of discharge: Laboratory Results - last 24 hr 08/04/23 11:12 POC Glucose 209 H Discharge Plan Discharge Anticipated Discharge Date/Time: 08/04/23 13:09 Patient Disposition: Home, Self-Care Discharge Diagnosis: ileostomy closure Referrals: Darion Fam MD [Physician] - 2 Weeks Discharge Medications: New oxycodone-acetaminophen [Percocet] 5-325 mg tablet 1 tab PO Q4-6H PRN (Reason: pain) Qty: 20 0RF Rx Instructions: Partial Fill upon patient request. docusate sodium [Colace] 100 mg capsule 100 mg PO DAILY Qty: 60 2RF Continued cholecalciferol (vitamin D3) 25 mcg (1,000 unit) capsule 25 mcg PO DAILY (DME) FreeStyle Test Strip See Rx Instructions .Route Qty: 100 3RF Rx Instructions: As directed insulin lispro [Humalog KwikPen Insulin] 100 unit/mL insulin pen See Rx Instructions SUBCUT TID Qty: 45 4RF Rx Instructions: subcutaneously 3 times a day; Use up to 20 units before meals when on dexamethasone (DME) lancets [FreeStyle Lancets] 28 gauge misc Qty: 100 0RF Rx Instructions: Test four times a day or as directed. amlodipine 2.5 mg tablet 2.5 mg PO DAILY 90 Days Qty: 90 1RF atorvastatin 10 mg tablet 10 mg PO BEDTIME 90 Days Qty: 90 1RF (DME) BD Ultra Fine [place] Pen Needle 32 G x 4/32 See Rx Instructions .ROUTE .MEDSUPPLY Qty: 100 12RF Rx Instructions: Use as directed up to 4 times a day (DME) FreeStyle Keily 2 Sensor Kit See Rx Instructions .ROUTE .COMPLEX Qty: 2 0RF Dose Instruction: APPLY ONCE EVERY 14 DAYS DIRECTED Rx Instructions: APPLY ONCE EVERY 14 DAYS DIRECTED cetirizine 10 mg Tablet 10 mg PO DAILY (DME) blood-glucose meter [FreeStyle Lite Meter] Kit Qty: 1 0RF Rx Instructions: As Directed (DME) pen needle, diabetic 32 gauge x 1/4 needle Qty: 100 0RF Rx Instructions: Use four times a day or as directed. Vitamin B-12 50 mcg Tablet 50 mcg PO DAILY Baqsimi 3 mg/actuation spray,non-aerosol 3 mg intranasal ONCE PRN (Reason: Hypoglycemia) pantoprazole 40 mg tablet,delayed release (DR/EC) 40 mg PO DAILY@0630 (DME) FreeStyle Lite Strips Strip Qty: 100 12RF Rx Instructions: Test four times a day or as directed. magnesium oxide 400 mg magnesium tablet 400 mg PO DAILY 90 Days Qty: 90 1RF (DME) FreeStyle Keily 2 [place] Misc See Rx Instructions .Route Qty: 1 0RF Rx Instructions: As directed Discharge Orders: Discharge Order (Routine); Ordered 08/04/23 Ordered By: Darion Fam Diet: Advance to usual diet Activity on Discharge: No heavy lifting Stand Alone Forms: Patient Portal Discharge page Print Language: Trinid[place] Activity Restrictions/Additional Instructions: If the incision area is tender, you may apply an ice pack for short intervals (No more than 20 minutes on, followed by at least 20 minutes off). Do not apply heat. Do not use creams, lotions, or topical antibiotics unless instructed to do so by your surgeon. These can cause infection or allergic reaction. No lifting more than 20 lbs Okay to shower No strenuous activities Call the office for follow-up in 2 weeks - with Dr. Fam Call Your Doctor If: -Your temperature exceeds 101.5? F -You experience excessive pain or swelling -You have an unexpected reaction to medication -You have excessive bleeding -You experience continued vomiting/nausea -Your incision begins to separate -Your incision shows signs of infection such as increased redness, swelling, excessive pain, drainage (light blood or clear fluid is normal) or heat Care Plan Goals: return to baseline Health Concerns: pain control postop Plan of Treatment: oral pain meds no lifting > 20 lbs Assessment: doing very well Discharge Date/Time: 08/04/23 13:45
== END 2023-08-04 13:45 | disposition home or self-care (01) | DRG 230 ==
LOC: HO.SSSA 07:56 → HO.S3 09:18
PROVIDERS: Physician Assistant Surgical; Admitting Provider Surgery; PCP Internal Medicine; Visit Provider Surgery
PROC: 0DBB0ZZ Excision of Ileum, Open Approach (ICD-10-PCS; CPT 44620; principal; 2023-08-02 09:30)
DX: Z43.2 Encounter for attention to ileostomy (principal); E11.9 Type 2 diabetes mellitus without complications; E78.00 Pure hypercholesterolemia, unspecified; Z79.4 Long term (current) use of insulin; Z79.899 Other long term (current) drug therapy
CPT/HCPCS: 36415; 80048; 82947; 85025; 88304; 93005; J0131; J0665; J0690; J1170; J1644; J2310; J2405; J2704; J3010; J7120

== ENCOUNTER → 2023-08-02 07:55 | Outpatient (BNV) | payer OTHER, MEDICARE, SELFPAY | PROVIDERS: Admitting Provider Surgery; PCP Internal Medicine; Visit Provider Surgery | DX: Z98.890 Other specified postprocedural states (principal) | CPT/HCPCS: 44625; 99024; 99499 ==

== ENCOUNTER 2023-08-12 16:38 | Outpatient (AMB) | payer OTHER, MEDICARE, SELFPAY ==
--- NOTE | 2023-08-12 16:46 | A.OFFPC_ITS ---
Vital Signs 08/12/23 16:47 Height 5 ft 4 in Weight 165 lb BMI 28.3 BP 122/62 Blood Pressure Location Lt brachial Position Sitting Pulse 65 Pulse Source Pulse Oximeter Pulse Oximetry (%) 98 Oxygen Delivery Method Room Air Intake Visit Reasons: TCM follow up [employer] Required: No Bag Bailer: Present Accompanied by: Spouse Allergies No Known Allergies [No Known Allergies*] Allergy (Verified 08/12/23 18:37) Medication List - Last Reconciled 08/12/23 by Bimal Lepe MD amlodipine 2.5 mg PO DAILY 90 days atorvastatin 10 mg PO BEDTIME 90 days [BD Ultra Fine Floridalma Pen Needle 32 G x Use as directed up to 4 times a day] blood sugar diagnostic (FreeStyle Test strips) As directed blood sugar diagnostic (FreeStyle Lite Strips) Test four times a day or as directed. blood-glucose meter (FreeStyle Lite Meter kit) As Directed cetirizine 10 mg PO DAILY cholecalciferol (vitamin D3) 25 mcg PO DAILY cyanocobalamin (vitamin B-12) (Vitamin B-12) 50 mcg PO DAILY docusate sodium (Colace) 100 mg PO DAILY flash glucose scanning reader (FreeStyle Keily 2 Sobieski) As directed flash glucose sensor (FreeStyle Keily 2 Sensor kit) APPLY ONCE EVERY 14 DAYS DIRECTED insulin lispro (Humalog KwikPen (U-100) Insulin) subcutaneously 3 times a day; Use up to 20 units before meals when on dexamethasone lancets (FreeStyle Lancets) Test four times a day or as directed. magnesium oxide 400 mg PO DAILY 90 days oxycodone-acetaminophen 5-325 mg (Percocet) 1 tab PO Q4-6H PRN pantoprazole 40 mg PO DAILY@0630 pen needle, diabetic Use four times a day or as directed. Tobacco use date assessed: 08/12/23 Fall risk assessment: No Falls in past year Last assessed Fall Risk: 08/12/23 Dental Screening Dental Screen Date: 08/12/23 Did you have a dental visit in the last 12 months?: Yes Did you have a dental problem in the last 6 months where you did not have access to dental care?: No Was dental information given to patient?: Patient has dentist HPI TCM follow up HPI Details Patient comes in today for his TCM follow up He recently had his loop ileostomy reversed with [id number] anastomosis on 08/02/[address] Fam The procedure and his recovery reportedly went well without any complications Patient states that he currently feels okay although he still has some pain and discomfort over his surgical area States that he has been eating and drinking normally for a few days now and that his bowels have also been moving regularly with no significant problems - stools are still somewhat soft (he is taking some stool softeners) but otherwise are normal He still has the sindy in place over his surgical incision site but the wound appears well-healed with no erythema or irritation noted He denies any fever. headaches or dizziness Denies any chest pains, no SOB No nausea/vomiting, no abdominal pain noted TCM TCM Information Date of Discharge 08/04/23 Discharged From [facility] Interactive Contact Date (Reference documentation from this date) 08/09/23 [facility] Medical History Vitamin B [address] History of colon cancer Small bowel obstruction Coagulase negative Staphylococcus bacteremia Colon cancer Syncope Benign essential hypertension Overweight (BMI 25.0-29.9) Vitamin D deficiency Diabetes mellitus Pure hypercholesterolemia Surgical History Hx of surgical procedure (~08/02/23) History of colonoscopy (~2022) Status post laparotomy History of surgery Status post colon resection (~04/29/22) History of colonoscopy Family History Father Diabetes Hypertension Mother Diabetes Hypertension Mother Colon cancer Unknown Colon cancer Daughter Breast cancer Social History Household Members: Spouse Housing: House Are you a primary respiratory care technician to a significant other at home: No Do you presently have visiting nurse or other home services: No Unable to assess alcohol history related to: Unknown Alcohol intake: never Patient Tobacco Use Status: Never used Tobacco e-Cigarette/Vaping Use: Never Used Second Hand Smoke Exposure: No Advance Directives Date on File: 12/24/21 service: No Current occupational status: retired Cognitive needs: No Hearing needs: No Vision needs: Yes Questionnaire PHQ-9 Over the last 2 weeks, how often have you been bothered by any of the following problems? 1. Little interest or pleasure in doing things: not at all 2. Feeling down, depressed, or hopeless: not at all 3. Trouble falling or staying asleep, or sleeping too much: not at all 4. Feeling tired or having little energy: not at all 5. Poor appetite or overeating: not at all 6. Feeling bad about yourself - or that you are a failure or have let yourself or your family down: not at all 7. Trouble concentrating on things, such as reading the newspaper or watching television: not at all 8. Moving or speaking so slowly that other people could have noticed. Or the opposite - being so fidgety or restless that you have been moving around a lot more than usual: not at all 9. Thoughts that you would be better off or of hurting yourself in some way: not at all Total score: 0 Depression Screening Interpretation: Negative Depression Screening Done: Yes 39253 - PHQ-9 Billing: Yes Source: Developed by Drs. Cooper Beck, Gertrude Vega, Santo Tejada and colleagues, with an educational otto from [employer]. Thrive Questionnaire Date Thrive assessed: 08/12/23 I am a: Patient What is your living situation today?: I have a steady place to live Within the past 12 months, did the food you bought not last and you didn't have the money to get more?: Never true Within the past 12 months, did you worry whether your food would run out before you got money to buy more?: Never true Do you have trouble paying for medicines?: No Do you have trouble getting transportation to medical appointments?: No Do you have trouble paying your heating and electricity bill?: No Do you have trouble taking care of your child, family member or friend?: No Do you have trouble with day-to-day activities such as bathing, preparing meals, shopping, managing finances, etc.?: No Are you currently unemployed and looking for a job?: No Are you interested in more education?: No Please select the resources that you would like help with: None Currently or been in a relationship where the following occur: no concerns reported THRIVE Score: 0 AUDIT C Alcohol Use Questionnaire (AUDIT-C) 1. How often do you have a drink containing alcohol?: Never 3. How often do you have six or more drinks on one occasion?: Never Total Score: 0 Score Reviewed/Action Taken: Yes AALIYAH-7 AMB Questionnaire AALIYAH-7 Date AALIYAH - 7 assessed: 08/12/23 Feeling nervous, anxious, or on edge: 0 = Not at all Not being able to stop or control worryin = Not at all Worrying too much about different things: 0 = Not at all Trouble relaxin = Not at all Being so restless that it is hard to sit still: 0 = Not at all Becoming easily annoyed or irritable: 0 = Not at all Feeling afraid as if something awful might happen: 0 = Not at all Total AALIYAH-7 score (0-4 normal; 5-9 mild; 10-14 moderate; 15-21 severe): 0 Source: Developed by Drs. Cooper Beck, Gertrude Vega, Santo Tejada and colleagues, with an educational otto from [employer]. Review of Systems Const Denies chills, Denies fatigue, Denies fever(s) and Denies headache(s) ENT Denies dysphagia, Denies dizziness, Denies otalgia, Denies headache(s), Denies neck pain, Denies odynophagia and Denies sore throat Card Denies chest pain, Denies palpitations and Denies dyspnea Resp Denies cough and Denies dyspnea GI Details: (+) mild tenderness over the surgical area on his right lower abdomen Denies abdominal pain, Denies hematochezia, Denies constipation, Denies dysphagia, Denies heartburn, Denies diarrhea, Denies nausea, Denies odynophagia and Denies vomiting Denies dysuria, Denies nocturia and Denies urinary frequency Musc Denies neck pain Skin/Breast Denies rash Neuro Denies dizziness and Denies headache(s) Endo Denies fatigue and Denies palpitations Physical exam (Primary Care) Vital Signs: Last Vital Signs Pulse 65 08/12/23 16:47 BP 122/62 08/12/23 16:47 Pulse Ox 98 08/12/23 16:47 Oxygen Delivery Method Room Air 08/12/23 16:47 BMI result Body Mass Index 28.3 Tobacco/Smoking Status: Tobacco use Status Tobacco use date assessed 08/12/23 08/12/23 16:48 Patient Tobacco Use Status Never used Tobacco 08/12/23 16:48 e-Cigarette/Vaping Use Never Used 08/12/23 16:48 PHQ-9: PHQ-9 Score PHQ-9: Total score 0 08/12/23 17:13 Depression Screening Interpretation: Negative Thrive Assessment: Date of Thrive Assessment Date Thrive assessed 08/03/23 08/12/23 16:48 Currently or been in a relationship where the following occur: no concerns reported Const General: no acute distress and alert Neck Neck: Yes no lymphadenopathy and Yes supple Thyroid: Thyroid normal Resp Auscultation: clear to auscultation bilaterally, no rales and no wheezes Cardio Rate: regular rate Rhythm: regular rhythm Heart sounds: no murmurs GI Other: (+) healed surgical wound over the right lower abdomen - sindy appear in place with no erythema, irritation or drainage noted Palpation (GI): Soft to palpation and nontender Auscultation: normal bowel sounds Skin Rashes: no rashes Extrem General: Yes no clubbing, cyanosis or edema Results AMB Hemoglobin A1c AMB Hemoglobin A1c 7.2 % Last Edit by JEREMY Clements on 08/12/23 16:58 Results Reviewed Results Reviewed: Laboratory Last Values Hgb A1c (Clinic) 7.2 % (4.0-6.0) H 08/12/23 16:48 Assessment and Plan Assessment & Plan (1) S/P closure of ileostomy: Code(s): Z98.890 - Other specified postprocedural states Plan: Previous loop ileostomy was reversed with [id number]-nz-lytz anastomosis successfully on 08/02/[address] Fam He is currently doing well with no acute issues and will be seeing Dr. Fam next week for removal of sindy (2) Colon cancer: Code(s): C18.9 - Malignant neoplasm of colon, unspecified Qualifiers: Colon location: transverse Qualified Code(s): C18.4 - Malignant neoplasm of transverse colon Plan: S/P laparotomy and resection of proximal transverse colon, with diverting loop ileostomy on 04/29/[address] Fam Pathology revealed invasive adenocarcinoma, with tumor perforating the visceral peritoneum (pT4a), focal high grade adenomatous dysplasia and lymph nodes and anastomotic tissues negative for tumor (pN0) He has completed adjuvant chemotherapy (modified FOLFOX 6 regimen) although he developed SBO due to adhesions back in December 2022 and required exploratory laparotomy with lysis of extensive adhesions Follow-up with oncology and with surgery as scheduled for continuing surveillance (3) Diabetes mellitus: Code(s): E11.9 - Type 2 diabetes mellitus without complications Qualifiers: Diabetes mellitus type: type 2 Diabetes mellitus predatory animal exterminator insulin use: without predatory animal exterminator use Diabetes mellitus complication status: with hyperglycemia Qualified Code(s): E11.65 - Type 2 diabetes mellitus with hyperglycemia Plan: In-office HgbA1c today is at 7.2% (was at 7.3% a few months ago) - goal is < 7.0% Reinforced diabetic diet Continue Januvia 50 mg QD and Humalog TID with meals dosed per sliding scale; Metformin ER 500 mg was discontinued a few months ago due to [place] (4) Benign essential hypertension: Code(s): I10 - Essential (primary) hypertension Plan: Reinforced low sodium diet - goal is systolic BP of at least 140 mm or less Continue Amlodipine 2.5 mg QD; was previously on Lisinopril 20 mg QD but this was discontinued when he presented to the ER a few months ago in [place] Patient is again reminded to continue monitoring his blood pressure regularly (5) Pure hypercholesterolemia: Code(s): E78.00 - Pure hypercholesterolemia, unspecified Plan: Reinforced low cholesterol diet Continue Atorvastatin 10 mg QD Will recheck his labs and fasting lipids in a couple of months for follow up Plan Follow up in 2 months - will have office move his originally scheduled appoin tment next month (August 2023) to September 2023 He is reminded to get his previously ordered follow up labs done BEFORE he comes in for his follow up appt Orders: Orders AMB Hemoglobin A1c Today E11.65 - Type 2 diabetes mellitus with hyperglycemia Coding Level of Care Code TCM Mod MDM <= 14 Days Diagnoses S/P closure of ileostomy Z98.890 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 Colon location: transverse Type 2 diabetes mellitus with hyperglycemia, without long-term current use of insulin E11.65 Diabetes mellitus type: type 2 Diabetes mellitus half-way insulin use: without predatory animal exterminator use Diabetes mellitus complication status: with hyperglycemia Benign essential hypertension I10 Pure hypercholesterolemia E78.00
[2023-08-12 16:47] VITALS: BP 122/62; PULSE 65; O2SAT 98; BMI 28.3
== END 2023-08-12 17:14 | disposition home or self-care (01) ==
PROVIDERS: PCP Internal Medicine; Visit Provider Internal Medicine
DX: C18.4 Malignant neoplasm of transverse colon (principal); Z93.2 Ileostomy status; E11.65 Type 2 diabetes mellitus with hyperglycemia; I10 Essential (primary) hypertension; E78.00 Pure hypercholesterolemia, unspecified
CPT/HCPCS: 83036; 99214

== ENCOUNTER 2023-08-17 15:14 | Outpatient (AMB) | payer OTHER, MEDICARE, SELFPAY ==
--- NOTE | 2023-08-17 15:17 | MHC.OFFVIS ---
Vital Signs 08/17/23 15:24 Height 5 ft 4 in Weight 166 lb BMI 28.5 BP 146/67 H Blood Pressure Location Lt brachial Position Sitting Pulse 67 Intake Visit Reasons: S/P reversal of loop ileostomy Intake Note: This patient presents for a post-op assessment status post reversal of loop ileostomy. Pt c/o; report no complaints. Chief [employer] Required: No Accompanied by: Spouse Allergies No Known Allergies [No Known Allergies*] Allergy (Verified 08/17/23 15:25) HPI HPI S/P reversal of loop ileostomy: Details: Underwent reversal of a loop ileostomy he underwent reversal of a loop ileostomy last August 02, 2023. He tolerated procedure well. He currently denies significant complaints. He has good oral intake and has good bowel movements. [facility] Medical History GERD without esophagitis Vitamin B [address] History of colon cancer Small bowel obstruction Coagulase negative Staphylococcus bacteremia Colon cancer Syncope Benign essential hypertension Overweight (BMI 25.0-29.9) Vitamin D deficiency Diabetes mellitus Pure hypercholesterolemia Surgical History Hx of surgical procedure (~08/02/23) History of colonoscopy (~2022) Status post laparotomy History of surgery Status post colon resection (~04/29/22) History of colonoscopy Family History Father Diabetes Hypertension Mother Diabetes Hypertension Mother Colon cancer Unknown Colon cancer Daughter Breast cancer Social History Household Members: Spouse Housing: House Are you a primary home care manager rn to a significant other at home: No Do you presently have visiting nurse or other home services: No Unable to assess alcohol history related to: Unknown Alcohol intake: never Patient Tobacco Use Status: Never used Tobacco e-Cigarette/Vaping Use: Never Used Second Hand Smoke Exposure: No Advance Directives Date on File: 12/24/21 service: No Current occupational status: retired Cognitive needs: No Hearing needs: No Vision needs: Yes Review of Systems Const Denies chills and Denies fever(s) Card Denies chest pain, Denies dyspnea and Denies dyspnea on exertion Resp Denies cough, Denies dyspnea and Denies dyspnea on exertion GI Denies hematochezia and Denies change in bowel habits Denies hematuria and Denies difficulty urinating Musc Denies back pain and Denies limited range of motion Neuro Denies focal weakness and Denies convulsions Psych Denies depression and Denies mood swings Physical Exam Const General: comfortable and no acute distress Resp Effort & Inspection: normal respiratory effort GI Other: Incision well healed, not infected, sindy intact Palpation (GI): Soft to palpation, not firm, nontender and no guarding Assessment & Plan Assessment & Plan (1) S/P closure of ileostomy: Code(s): Z98.890 - Other specified postprocedural states Category: Surgical Plan: He is doing very well. His incision is well healed. I removed all his skin sindy He was advised to avoid lifting and anything more than 20 lb for at least another month. He is to continue to follow-up with Dr. Terrell of Oncology for his colon cancer history. He can follow up with me on a p.r.n. basis. Coding Level of Care Code Global (69461) Diagnoses S/P closure of ileostomy Z98.890
[2023-08-17 15:24] VITALS: BP 146/67; PULSE 67; BMI 28.5
== END 2023-08-17 15:52 | disposition home or self-care (01) ==
PROVIDERS: PCP Internal Medicine; Visit Provider Surgery
DX: Z98.890 Other specified postprocedural states (principal)
CPT/HCPCS: 99024

== ENCOUNTER → 2023-08-17 15:14 | Outpatient (BNVA) | payer OTHER, MEDICARE, SELFPAY | PROVIDERS: PCP Internal Medicine; Visit Provider Surgery ==

== ENCOUNTER 2023-10-03 12:12 | Outpatient (AMB) | payer OTHER, MEDICARE, SELFPAY ==
[2023-10-03 12:35] VITALS: BMI 28.3
--- NOTE | 2023-10-03 12:35 | A.OFFVIS_ITS ---
VS Expanded 10/03/23 12:35 Height 5 ft 4 in Weight 165 lb 2 oz BMI 28.3 Intake Visit Reasons: T2DM/CONFIRMED Allergies No Known Allergies [No Known Allergies*] Allergy (Verified 08/22/23 14:19) Nutrition Presentation Details: Pt presents for MNT for T2DM. Pt reports feeling well,motivated Reports having 3 meals day following healthy plate method food frequency fruits: 2-3 serving/d dairy: 3-4 serving/d vegetables: 2 serving/d protein : 2-3 oz in each meal and sometimes 1-2 as snack starches: 23 serving/d fried foods: 0-1/m etoh/smoking- denies physical activity: daily > 30 min Pt did not bring glucometer to this appt. Pt reports FBG ranges from 140-160 in the fasting state and takes humalog prior to meals 4-6 units before most meals. Pt is not on basal insulin or other hypoglycemia agents Pt reports taking an iron suppl due to anemia and takes supplement with water BS Monitoring Most Recent Diabetes Results: Creatinine 1.04 mg/dL (0.5-1.4) 08/03/23 Blood Urea Nitrogen 12 mg/dL (9-16) 08/03/23 Sodium 139 mmol/L (135-145) 08/03/23 Potassium 3.6 mmol/L (3.3-5.1) 08/03/23 Chloride 110 mmol/L (96-108) H 08/03/23 Carbon Dioxide 23 mmol/L (22-29) 08/03/23 Calcium 8.2 mg/dL (8.4-10.2) L 08/03/23 AST 20 U/L (5-37) 06/27/23 ALT 23 U/L (0-40) 06/27/23 Total Protein 6.8 g/dL (6.5-8.0) 06/27/23 Albumin 4.2 g/dL (3.5-5.0) 06/27/23 [facility] Medical History GERD without esophagitis Vitamin B [address] History of colon cancer Small bowel obstruction Coagulase negative Staphylococcus bacteremia Colon cancer Syncope Benign essential hypertension Overweight (BMI 25.0-29.9) Vitamin D deficiency Diabetes mellitus Pure hypercholesterolemia Surgical History Hx of surgical procedure (~08/02/23) History of colonoscopy (~2022) Status post laparotomy History of surgery Status post colon resection (~04/29/22) History of colonoscopy Family History Father Diabetes Hypertension Mother Diabetes Hypertension Mother Colon cancer Unknown Colon cancer Daughter Breast cancer Social History Household Members: Spouse Housing: House Are you a primary healthcare or medical to a significant other at home: No Do you presently have visiting nurse or other home services: No Unable to assess alcohol history related to: Unknown Alcohol intake: never Patient Tobacco Use Status: Never used Tobacco e-Cigarette/Vaping Use: Never Used Second Hand Smoke Exposure: No Advance Directives Date on File: 12/24/21 service: No Current occupational status: retired Cognitive needs: No Hearing needs: No Vision needs: Yes Assessment & Plan Assessment & Plan (1) Diabetes: Code(s): E11.9 - Type 2 diabetes mellitus without complications Category: Medical Plan: used wt: 75 kg Est kcal needs as per MSJ: 1965 (40% carb, 30% protein/fat) Est fluid needs as per 25-30 ml/d: 1875- 2250 Est prot per day as per 1 g/kg bw: 75 Recommend fiber intake : 8-10 g per day and gradually increase as tolerated Recommend sodium intake per day : less than 2000 mg Educated patient on: ( R = reviewed V = verbalizes understanding N/R = needs review N/A = not applicable * Food sources of carbohydrate, adequate serving sizes and its role in various health conditions: R * Differences between complex carbohydrates a simple carbohydrates, role of fiber in diet: R * Differences between types of fats and role in diet (mono on saturated fat fatty acids, saturated fatty acids, trans fats): R basic low fat concepts * Food sources of protein : R * Food sources of sodium in salt and healthy modifications for heart health in kidney health: R V * Vitamins and minerals: R * Healthy plate method concept: R , V * Physical activity: Benefits a precaution: R, V * Hypoglycemia protocol (rule of 15): R, V * Dietary prevention of Hyperglycemia: R , V PCP RECOMMENDATION: Pt may be in need of basal insulin. Pt did not bring glucometer to this appt, however Pt mentions having fasting blood glucose between 140-160s , not on basal insulin or oral hypoglycemic agents but taking Humalog on a sliding scale with meals and takes insulin with most meals , 2-3 times a day. Pt was advised to monitor blood glucose and bring blood sugar log to discuss levels and medications with MD at f/u visit Patient Instructions: Continue following healthy plate method Include food sources of omega 3 in your diet (fish, nuts, algae) Keep hydrated by having water with meals and snacks Take iron supplement in combination with vitamin c (fruit or 1/2 c of juice or with a meal with vegetables Watch on portion of snack at bedtime, choose 30 g carb or less with 1-2 serving of protein (ex 1 cup of milk and 3 crackers with peanut butter) Coding Level of Care Code Nutr Indiv Subseq (00053) Diagnoses Diabetes E11.9 Time Spent (min) 30
== END 2023-10-03 13:02 | disposition home or self-care (01) ==
PROVIDERS: PCP Internal Medicine; Visit Provider Dietitian, Registered
DX: E11.9 Type 2 diabetes mellitus without complications (principal)

== ENCOUNTER → 2023-10-03 12:12 | Outpatient (BNVA) | payer OTHER, MEDICARE, SELFPAY | PROVIDERS: PCP Internal Medicine; Visit Provider Dietitian, Registered | DX: E11.9 Type 2 diabetes mellitus without complications (principal); Z71.3 Dietary counseling and surveillance | CPT/HCPCS: 97803 ==

== ENCOUNTER 2023-10-20 06:10 | Outpatient (REF) | payer OTHER, MEDICARE, SELFPAY ==
[2023-10-20 06:34] LABS: MANUAL DIFF FLAG NO
[2023-10-20 07:25] LABS: Basophils Absolute Auto 0.1 X10*3/uL (0.0-0.2); Basophils Percent Auto 0.8 % (0-2); Eosinophils Absolute Auto 0.4 X10*3/uL (0.0-0.4); Eosinophils Percent Auto 5.9 % (0-4); Hematocrit 41.5 % (42.0-52.0); Hemoglobin 13.7 g/dl (14.0-18.0); Imm Gran Abs Auto 0.03 X10*3/uL (0.00-0.03); Imm Gran Pct Auto 0.4 % (0.0-0.4); Lymphocytes Absolute Auto 1.7 X10*3/uL (1.2-4.9); Lymphocytes Percent Auto 23.5 % (20-40); Mean Corpuscular Volume 81.9 fL (80.0-98.0); Mean Platelet Volume 10.4 fL (9.4-12.4); Monocytes Absolute Auto 0.5 X10*3/uL (0.1-1.2); Monocytes Percent Auto 7.4 % (2-11); Neutrophils Absolute Auto 4.4 x10*3/uL (2.0-8.3); Platelet Count 151 X10*3/uL (160-400); Red Blood Count 5.07 X10*6/uL (4.60-5.80); Red Cell Distribution Width 12.9 % (11.0-16.0); White Blood Count 7.1 X10*3/uL (4.8-10.8)
[2023-10-20 07:53] LABS: Estimated Average Glucose 148 mg/dL; Hemoglobin A1c % 6.8 % (<6.0)
[2023-10-20 08:16] LABS: Alanine Aminotransferase 15 U/L (0-40); Albumin Level 4.3 g/dL (3.5-5.0); Alkaline Phosphatase 93 U/L (39-117); Anion Gap 14 (12-20); Aspartate Amino Transferase 20 U/L (5-37); Bilirubin Total 0.5 mg/dL (0.0-1.0); Blood Urea Nitrogen 19 mg/dL (9-16); Calcium 9.5 mg/dL (8.4-10.2); Carbon Dioxide 27 mmol/L (22-29); Chloride 106 mmol/L (96-108); Cholesterol 146 mg/dL (<200); Estimated Glomerular Filt Rate 44; Glucose Fasting 159 mg/dL (60-99); HDL Cholesterol 39 mg/dL (>40); LDL Cholesterol Calculated 94 mg/dL (<100); Magnesium 1.9 mg/dL (1.6-2.6); Potassium 4.8 mmol/L (3.3-5.1); Sodium 142 mmol/L (135-145); Total Protein 6.8 g/dL (6.5-8.0); Triglycerides 67 mg/dL (<150)
[2023-10-20 08:23] LABS: Appearance Urine Clear; Color Urine Yellow; Glucose Urine UA Negative (Negative); Leukocyte Esterase Urine Negative (Negative); Nitrite Urine Negative (Negative); PH 5.5 (5.0-9.0); Urine Blood Negative (Negative); Urine Ketones Negative (Negative); Urine Protein Trace mg/dL (Neg-Trace)
[2023-10-20 08:33] LABS: TSH reflex Free T4 1.47 uIU/mL (0.32-4.0); Vitamin D 25-OH Total 34.8 ng/mL (>30)
== END 2023-10-20 06:11 | disposition home or self-care (01) ==
LOC: HO.LAB 06:10
PROVIDERS: PCP Internal Medicine; Visit Provider Internal Medicine
DX: I10 Essential (primary) hypertension (principal); E78.00 Pure hypercholesterolemia, unspecified; R30.0 Dysuria; E55.9 Vitamin D deficiency, unspecified; E11.9 Type 2 diabetes mellitus without complications; E83.42 Hypomagnesemia
CPT/HCPCS: 36415; 80053; 80061; 81003; 82306; 83036; 83735; 84443; 85025

== ENCOUNTER 2023-10-25 16:18 | Outpatient (AMB) | payer MEDICARE, SELFPAY ==
[2023-10-25 16:28] VITALS: BP 170/80; PULSE 65; O2SAT 98; BMI 28.5
--- NOTE | 2023-10-25 16:28 | A.OFFPC_ITS ---
Vital Signs 10/25/23 16:28 Height 5 ft 4 in Weight 166 lb BMI 28.5 BP 170/80 H Blood Pressure Location Lt brachial Position Sitting Pulse 65 Pulse Source Pulse Oximeter Pulse Oximetry (%) 98 Oxygen Delivery Method Room Air Intake Visit Reasons: 3 month f/u - see comments Environmental Professional Required: No Turbine Assembler: Not Required per policy Accompanied by: Self / Same As Patient Allergies No Known Allergies [No Known Allergies*] Allergy (Verified 10/25/23 16:45) Medication List - Last Reconciled 10/25/23 by Bimal Lepe MD amlodipine 2.5 mg PO DAILY 90 days atorvastatin 10 mg PO BEDTIME 90 days [BD Ultra Fine [place] Pen Needle 32 G x Use as directed up to 4 times a day] blood sugar diagnostic (FreeStyle Test strips) As directed blood sugar diagnostic (FreeStyle Lite Strips) Test four times a day or as directed. blood-glucose meter (FreeStyle Lite Meter kit) As Directed cetirizine 10 mg PO DAILY cholecalciferol (vitamin D3) 25 mcg PO DAILY cyanocobalamin (vitamin B-12) (Vitamin B-12) 50 mcg PO DAILY flash glucose scanning reader (FreeStyle Keily 2 [place]) As directed flash glucose sensor (FreeStyle Keily 2 Sensor kit) APPLY ONCE EVERY 14 DAYS DIRECTED insulin lispro (Humalog KwikPen (U-100) Insulin) subcutaneously 3 times a day; Use up to 20 units before meals when on dexamethasone lancets (FreeStyle Lancets) Test four times a day or as directed. magnesium oxide 400 mg PO DAILY 90 days pantoprazole 40 mg PO DAILY@0630 pen needle, diabetic Use four times a day or as directed. Tobacco use date assessed: 08/12/23 Fall risk assessment: No Falls in past year Last assessed Fall Risk: 10/25/23 Dental Screening Dental Screen Date: 08/12/23 HPI 3 month f/u - see comments HPI Details Patient comes in today for his follow-up visit States that he feels okay He denies any headaches or dizziness Denies any chest pains, no shortness of breath No nausea/vomiting, no abdominal pain No change in bowel habits noted He had his follow-up labs done last week - to discuss his results [facility] Medical History (Updated 10/26/23 @ 03:39 by Bimal Lepe MD) GERD without esophagitis Vitamin B [address] History of colon cancer Small bowel obstruction Coagulase negative Staphylococcus bacteremia Colon cancer Syncope Benign essential hypertension Overweight (BMI 25.0-29.9) Vitamin D deficiency Diabetes mellitus Pure hypercholesterolemia Surgical History Hx of surgical procedure (~08/02/23) History of colonoscopy (~2022) Status post laparotomy History of surgery Status post colon resection (~04/29/22) History of colonoscopy Family History Father Diabetes Hypertension Mother Diabetes Hypertension Mother Colon cancer Unknown Colon cancer Daughter Breast cancer Social History Household Members: Spouse Housing: House Are you a primary early breastfeeding care specialist to a significant other at home: No Do you presently have visiting nurse or other home services: No Unable to assess alcohol history related to: Unknown Alcohol intake: never Patient Tobacco Use Status: Never used Tobacco e-Cigarette/Vaping Use: Never Used Second Hand Smoke Exposure: No Advance Directives Date on File: 12/24/21 service: No Current occupational status: retired Cognitive needs: No Hearing needs: No Vision needs: Yes Questionnaire Thrive Questionnaire Date Thrive assessed: 08/12/23 AALIYAH-7 AMB Questionnaire AALIYAH-7 Date AALIYAH - 7 assessed: 08/12/23 Source: Developed by Drs. Cooper Beck, Gertrude Vega, [place] and colleagues, with an educational otto from [employer]. Review of Systems Const Denies chills, Denies fatigue, Denies fever(s) and Denies headache(s) ENT Denies dysphagia, Denies dizziness, Denies otalgia, Denies headache(s), Denies neck pain, Denies odynophagia and Denies sore throat Card Denies chest pain, Denies palpitations and Denies dyspnea Resp Denies cough and Denies dyspnea GI Denies abdominal pain, Denies hematochezia, Denies constipation, Denies dysphagia, Denies heartburn, Denies diarrhea, Denies nausea, Denies odynophagia and Denies vomiting Denies dysuria, Denies nocturia and Denies urinary frequency Musc Denies neck pain Skin/Breast Denies rash Neuro Denies dizziness and Denies headache(s) Endo Denies fatigue and Denies palpitations Physical exam (Primary Care) Vital Signs: Last Vital Signs Pulse 65 10/25/23 16:28 BP 170/80 H 10/25/23 16:28 Pulse Ox 98 10/25/23 16:28 Oxygen Delivery Method Room Air 10/25/23 16:28 BMI result Body Mass Index 28.5 Tobacco/Smoking Status: Tobacco use Status Tobacco use date assessed 08/12/23 10/25/23 16:32 Patient Tobacco Use Status Never used Tobacco 10/25/23 16:32 e-Cigarette/Vaping Use Never Used 10/25/23 16:32 Thrive Assessment: Date of Thrive Assessment Date Thrive assessed 08/12/23 10/25/23 16:32 Const General: no acute distress and alert Neck Neck: Yes no lymphadenopathy and Yes supple Thyroid: Thyroid normal Resp Auscultation: clear to auscultation bilaterally, no rales and no wheezes Cardio Rate: regular rate Rhythm: regular rhythm Heart sounds: no murmurs GI Palpation (GI): Soft to palpation and nontender Auscultation: normal bowel sounds Skin Rashes: no rashes Extrem General: Yes no clubbing, cyanosis or edema Results Reviewed Results Reviewed: Laboratory Tests 10/20/23 10/20/23 06:20 06:32 WBC 7.1 Hgb 13.7 L Hct 41.5 L Plt Count 151 L D Sodium 142 Potassium 4.8 D Creatinine 1.56 H Estimated GFR 44 Fasting Glucose 159 H Hemoglobin A1c % 6.8 H Calcium 9.5 D AST 20 ALT 15 Triglycerides 67 Cholesterol 146 LDL Cholesterol, Calc 94 HDL Cholesterol 39 L 25-OH Vitamin D Total 34.8 TSH 1.47 Ur Specific [place] 1.020 Urine Protein Trace Urine Glucose (UA) Negative Urine Blood Negative Urine Nitrite Negative Ur Leukocyte Esterase Negative Assessment and Plan Assessment & Plan (1) Colon cancer: Code(s): C18.9 - Malignant neoplasm of colon, unspecified Qualifiers: Colon location: transverse Qualified Code(s): C18.4 - Malignant neoplasm of transverse colon Plan: S/P laparotomy and resection of proximal transverse colon, with diverting loop ileostomy on 04/29/[address] Fam Pathology revealed invasive adenocarcinoma, with tumor perforating the visceral peritoneum (pT4a), focal high grade adenomatous dysplasia and lymph nodes and anastomotic tissues negative for tumor (pN0) He has completed adjuvant chemotherapy (modified FOLFOX 6 regimen) although he developed SBO due to adhesions back in December 2022 and required exploratory laparotomy with lysis of extensive adhesions He had his loop ileostomy reversed successfully a few months ago on 08/02/2023 Follow-up with oncology and with surgery as scheduled for continuing surveillance (2) Diabetes mellitus: Code(s): E11.9 - Type 2 diabetes mellitus without complications Qualifiers: Diabetes mellitus complication status: with hyperglycemia Diabetes mellitus manager of internal audit insulin use: without manager of internal audit use Diabetes mellitus type: type 2 Qualified Code(s): E11.65 - Type 2 diabetes mellitus with hyperglycemia Plan: His HgbA1c was at 6.8% on his labs done last week (in-office HgbA1c was at 7.2% a few months ago) - goal is < 7.0% Reinforced diabetic diet Continue Humalog TID with meals dosed per sliding scale; Metformin ER 500 mg was discontinued a few months ago due to MARILYNN and it appears that he was also take it off his Januvia 50 mg by endocrinology a few months ago (3) Benign essential hypertension: Code(s): I10 - Essential (primary) hypertension Plan: Reinforced low sodium diet - goal is systolic BP of at least 140 mm or less Have advised patient that his blood pressure is still running high and of concern is his renal function appears to have declined from previous on his recent labs Will go ahead and increase his Amlodipine today from 2.5 mg to 5 mg QD He was previously on Lisinopril 20 mg QD but this was discontinued when he presented to the ER a few months ago in [place] Patient is again reminded to continue monitoring his blood pressure regularly (4) Pure hypercholesterolemia: Code(s): E78.00 - Pure hypercholesterolemia, unspecified Plan: Results of his labs done last week reviewed and discussed with patient Reinforced low cholesterol diet Continue Atorvastatin 10 mg QD Will recheck his labs and fasting lipids in 3 months for follow up (5) Vitamin D deficiency: Code(s): E55.9 - Vitamin D deficiency, unspecified Plan: Continue Vitamin D3 1000 units QD (6) CKD (chronic kidney disease) stage 3, GFR 30-59 ml/min: Code(s): N18.30 - Chronic kidney disease, stage 3 unspecified Qualifiers: Chronic kidney disease stage 3 subtype: stage 3b (GFR 30-44) Qualified Code(s): N18.32 - Chronic kidney disease, stage 3b Plan: Have cautioned patient today with his renal function appears to have declined again on his recent labs so should try to get his blood pressure controlled as quickly as possible and he should also try to maintain his glycemic control as best as he can Patient was also advised to make sure he stays adequately hydrated all the time, especially during the upcoming summer months Will continue to monitor his renal function closely Will have him recheck his renal function before he sees Nephrology for his follow-up in early December 2023 Follow-up with nephrology as scheduled (7) GERD without esophagitis: Code(s): K21.9 - Gastro-esophageal reflux disease without esophagitis Plan: Dietary restrictions reinforced Continue Pantoprazole 40 mg QD (8) Overweight (BMI 25.0-29.9): Code(s): E66.3 - Overweight Plan: Reinforced diet/exercise as tolerated/lose weight Plan Follow up in 3 months Orders: Orders Comprehensive Met. Panel 24 N18.30 - Chronic kidney disease, stage 3 unspecified Hemoglobin A1c 3 Months E11.9 - Type 2 diabetes mellitus without complications Vitamin D 25-OH Total 3 Months E55.9 - Vitamin D deficiency, unspecified Complete Blood Count Auto Diff 3 Months D64.9 - Anemia, unspecified Comprehensive [place]. Panel Fast 3 Months E78.00 - Pure hypercholesterolemia, unspecified Lipid Panel 3 Months E78.00 - Pure hypercholesterolemia, unspecified Microalbumin, Random (w Creat) 3 Months E11.9 - Type 2 diabetes mellitus without complications UA CC w/rflx Micro + Cult 3 Months R30.0 - Dysuria Medications: Changed From amlodipine 2.5 mg PO DAILY 90 days 90 tabs 1RF To amlodipine 5 mg PO DAILY 90 days 90 tabs 1RF Coding Level of Care Code Est Pt Level 4 (94463) Complex EM visit Add On G2211 Diagnoses 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 Colon location: transverse Type 2 diabetes mellitus with hyperglycemia, without long-term current use of insulin E11.65 Diabetes mellitus complication status: with hyperglycemia Diabetes mellitus mcc insulin use: without manager of internal audit use Diabetes mellitus type: type 2 Benign essential hypertension I10 Pure hypercholesterolemia E78.00 Vitamin D deficiency E55.9 Stage 3b chronic kidney disease N18.32 Chronic kidney disease stage 3 subtype: stage 3b (GFR 30-44) GERD without esophagitis K21.9 Overweight (BMI 25.0-29.9) E66.3
== END 2023-10-25 16:58 | disposition home or self-care (01) ==
PROVIDERS: PCP Internal Medicine; Visit Provider Internal Medicine
DX: I12.9 Hypertensive chronic kidney disease with stage 1 through stage 4 chronic kidney disease, or unspecified chronic kidney disease (principal); C18.4 Malignant neoplasm of transverse colon; E11.65 Type 2 diabetes mellitus with hyperglycemia; N18.32 Chronic kidney disease, stage 3b; E78.00 Pure hypercholesterolemia, unspecified; E55.9 Vitamin D deficiency, unspecified; K21.9 Gastro-esophageal reflux disease without esophagitis; E66.3 Overweight
CPT/HCPCS: 99214; G2211

== ENCOUNTER 2024-01-16 14:32 | Outpatient (REF) | payer MEDICARE, BC, SELFPAY ==
[2024-01-16 15:31] LABS: Hematocrit 41.5 % (42.0-52.0); Mean Corpuscular HGB Conc 33.7 g/dl (31.0-36.0); Mean Corpuscular Hemoglobin 27.4 pg (27.0-33.0); Mean Corpuscular Volume 81.2 fL (80.0-98.0); Mean Platelet Volume 10.5 fL (9.4-12.4); Platelet Count 145 X10*3/uL (160-400); Red Blood Count 5.11 X10*6/uL (4.60-5.80); Red Cell Distribution Width 13.6 % (11.0-16.0)
== END 2024-01-16 14:33 | disposition home or self-care (01) ==
LOC: HO.LAB 14:32
PROVIDERS: PCP Internal Medicine; Visit Provider Internal Medicine Hypertension Specialist
DX: N18.30 Chronic kidney disease, stage 3 unspecified (principal)
CPT/HCPCS: 36415; 85027

== ENCOUNTER 2024-01-20 09:50 | Outpatient (AMB) | payer MEDICARE, SELFPAY ==
[2024-01-20 09:45] VITALS: BP 150/62; PULSE 69; O2SAT 97; BMI 29.7
--- NOTE | 2024-01-20 09:45 | HO.NEPHOV_ITS ---
Vital Signs 01/20/24 09:45 Height 5 ft 4 in Weight 173 lb BMI 29.7 BP 150/62 H Blood Pressure Location Lt brachial Position Sitting Pulse 69 Pulse Source Pulse Oximeter Pulse Oximetry (%) 97 Oxygen Delivery Method Room Air Intake Visit Reasons: 4 mon follow up/ Conf Arts Education Teacher Required: No Accompanied by: Spouse Allergies No Known Allergies [No Known Allergies*] Allergy (Verified 01/20/24 09:46) Medication List - Last Reconciled 01/20/24 by Nato Lerner MD amlodipine 5 mg PO DAILY 90 days atorvastatin 10 mg PO BEDTIME 90 days [BD Ultra Fine [place] Pen Needle 32 G x Use as directed up to 4 times a day] blood sugar diagnostic (FreeStyle Test strips) As directed blood sugar diagnostic (FreeStyle Lite Strips) Test four times a day or as directed. blood-glucose meter (FreeStyle Lite Meter kit) As Directed blood-glucose meter,continuous (FreeStyle Keily 3 [place]) As directed blood-glucose sensor (FreeStyle Keily 3 Plus Sensor device) As directed cetirizine 10 mg PO DAILY cholecalciferol (vitamin D3) 25 mcg PO DAILY cyanocobalamin (vitamin B-12) (Vitamin B-12) 50 mcg PO DAILY flash glucose scanning reader (FreeStyle Keily 2 [place]) As directed flash glucose sensor (FreeStyle Keily 2 Sensor kit) APPLY ONCE EVERY 14 DAYS DIRECTED insulin lispro (Humalog KwikPen (U-100) Insulin) subcutaneously 3 times a day; Use up to 20 units before meals when on dexamethasone lancets (FreeStyle Lancets) Test four times a day or as directed. magnesium oxide 400 mg PO DAILY 90 days pantoprazole 40 mg PO DAILY@0630 pen needle, diabetic Use four times a day or as directed. HPI Comments Details: 72 yr old man with a history of [id number] type 2 diabetes, hypertension, hypercholesterolemia, vitamin-D deficiency with a h/o colon cancer s/p ex lap & resection of transverse colon stricture w/ loop ileostomy on 04/29/22. s/p Chemo He had MARILYNN in May 2022 with creatinine of 10 and K of 7. MARILYNN resolved with hydration He has completed chemotherapy. Creatinine is stable at 1.2 08/01/2023. Scheduled for reversal of colostomy tomorrow. Apparently he is cancer free at this time 01/20/2024. Serum underwent reversal of colostomy in July. He is doing very well. No new complaints. [facility] Medical History (Updated 10/26/23 @ 03:39 by Bimal Lepe MD) GERD without esophagitis Vitamin B [address] History of colon cancer Small bowel obstruction Coagulase negative Staphylococcus bacteremia Colon cancer Syncope Benign essential hypertension Overweight (BMI 25.0-29.9) Vitamin D deficiency Diabetes mellitus Pure hypercholesterolemia Surgical History Hx of surgical procedure (~08/02/23) History of colonoscopy (~2022) Status post laparotomy History of surgery Status post colon resection (~04/29/22) History of colonoscopy Family History Father Diabetes Hypertension Mother Diabetes Hypertension Mother Colon cancer Unknown Colon cancer Daughter Breast cancer Social History Household Members: Spouse Housing: House Are you a primary district manager primary care sales to a significant other at home: No Do you presently have visiting nurse or other home services: No Unable to assess alcohol history related to: Unknown Alcohol intake: never Patient Tobacco Use Status: Never used Tobacco e-Cigarette/Vaping Use: Never Used Second Hand Smoke Exposure: No Advance Directives Date on File: 12/24/21 service: No Current occupational status: retired Cognitive needs: No Hearing needs: No Vision needs: Yes Physical Exam Vital Signs: Last Vital Signs Pulse 69 01/20/24 09:45 BP 150/62 H 01/20/24 09:45 Pulse Ox 97 01/20/24 09:45 Oxygen Delivery Method Room Air 01/20/24 09:45 BMI result Body Mass Index 29.7 Const General: comfortable; No acute distress Orientation/consciousness: patient oriented x3 Eyes General: appearance normal, both eyes and all related structures Visual Barnes: normal visual barnes by confrontation Neck Neck: Yes supple and Yes no JVD Resp Effort & Inspection: normal respiratory effort and respiratory effort not d ecreased Auscultation: rhonchi Cardio Palpation: no palpable S3 and no palpable S4 Heart sounds: no rubs GI Inspection: Yes normal to inspection Palpation (GI): Soft to palpation Percussion: Yes normal to percussion Auscultation: normal bowel sounds General: Yes no CVA tenderness Back/Spine/Pelvis Back: no CVA tenderness Skin General skin exam: no petechiae and no purpura Neuro General: patient oriented x3 and no focal motor deficits Extrem General: No clubbing and No edema Results Reviewed Nephrology Results: Hgb 14.0 g/dl (14.0-18.0) 01/16/24 WBC 7.0 X10*3/uL (4.8-10.8) 01/16/24 Plt Count 145 X10*3/uL (160-400) L 01/16/24 Sodium 142 mmol/L (135-145) 10/20/23 Potassium 4.8 mmol/L (3.3-5.1) 10/20/23 Chloride 106 mmol/L (96-108) 10/20/23 Carbon Dioxide 27 mmol/L (22-29) 10/20/23 BUN 19 mg/dL (9-16) H 10/20/23 Creatinine 1.56 mg/dL (0.5-1.4) H 10/20/23 Calcium 9.5 mg/dL (8.4-10.2) 10/20/23 Urine Protein Trace mg/dL (Neg-Trace) 10/20/23 Urine Creatinine Pending 01/20/24 Assessment & Plan Assessment & Plan (1) CKD (chronic kidney disease) stage 3, GFR 30-59 ml/min: Code(s): N18.30 - Chronic kidney disease, stage 3 unspecified Category: Medical Qualifiers: Chronic kidney disease stage 3 subtype: stage 3b (GFR 30-44) Qualified Code(s): N18.32 - Chronic kidney disease, stage 3b Plan h/o MARILYNN superimposed on CKD MARILYNN has resolved Creatinine bumped up again in 10/13/2023. We will repeat again today. Encouraged to increase PO fluid intake Avoid nephrotoxins including NSAIDS Further workup will be based on today's lab results. HTN BP acceptable Stay on low salt diet Ca Colon s/p Chemo Follow with Orders: Orders Basic Metabolic Panel Today N18.32 - Chronic kidney disease, stage 3b Basic Metabolic Panel 4 Months N18.32 - Chronic kidney disease, stage 3b Complete Blood Count Auto Diff 4 Months N18.32 - Chronic kidney disease, stage 3b Total Protein Urine Random 4 Months N18.32 - Chronic kidney disease, stage 3b UA and rflx microscopic 4 Months N18.32 - Chronic kidney disease, stage 3b Creatinine Urine 4 Months N18.32 - Chronic kidney disease, stage 3b Coding Level of Care Code Est Pt Level 4 (77026) Diagnoses Stage 3b chronic kidney disease N18.32 Chronic kidney disease stage 3 subtype: stage 3b (GFR 30-44)
== END 2024-01-20 10:04 | disposition home or self-care (01) ==
PROVIDERS: PCP Internal Medicine; Visit Provider Internal Medicine Hypertension Specialist
DX: E11.22 Type 2 diabetes mellitus with diabetic chronic kidney disease (principal); N18.32 Chronic kidney disease, stage 3b
CPT/HCPCS: 99214

== ENCOUNTER 2024-01-20 09:50 | Outpatient (REF) | payer MEDICARE, SELFPAY ==
[2024-01-20 10:32] LABS: MANUAL DIFF FLAG NO
[2024-01-20 10:52] LABS: Basophils Absolute Auto 0.1 X10*3/uL (0.0-0.2); Basophils Percent Auto 0.7 % (0-2); Eosinophils Absolute Auto 0.3 X10*3/uL (0.0-0.4); Eosinophils Percent Auto 4.1 % (0-4); Hematocrit 40.5 % (42.0-52.0); Hemoglobin 13.7 g/dl (14.0-18.0); Imm Gran Abs Auto 0.04 X10*3/uL (0.00-0.03); Imm Gran Pct Auto 0.5 % (0.0-0.4); Lymphocytes Absolute Auto 1.5 X10*3/uL (1.2-4.9); Lymphocytes Percent Auto 20.2 % (20-40); Mean Corpuscular HGB Conc 33.8 g/dl (31.0-36.0); Mean Corpuscular Hemoglobin 27.2 pg (27.0-33.0); Mean Corpuscular Volume 80.5 fL (80.0-98.0); Mean Platelet Volume 10.2 fL (9.4-12.4); Monocytes Absolute Auto 0.5 X10*3/uL (0.1-1.2); Monocytes Percent Auto 6.3 % (2-11); Neutrophils Absolute Auto 5.2 x10*3/uL (2.0-8.3); Neutrophils Percent Auto 68.2 % (45-73); Platelet Count 139 X10*3/uL (160-400); Red Blood Count 5.03 X10*6/uL (4.60-5.80); Red Cell Distribution Width 13.7 % (11.0-16.0); White Blood Count 7.6 X10*3/uL (4.8-10.8)
[2024-01-20 10:55] LABS: Appearance Urine Clear; Color Urine Yellow; Glucose Urine UA Negative (Negative); Leukocyte Esterase Urine Negative (Negative); Nitrite Urine Negative (Negative); PH 5.5 (5.0-9.0); Urine Blood Negative (Negative); Urine Ketones Negative (Negative); Urine Protein Trace mg/dL (Neg-Trace)
[2024-01-20 11:24] LABS: Estimated Average Glucose 160 mg/dL; Hemoglobin A1c % 7.2 % (<6.0)
[2024-01-20 11:30] LABS: Creatinine Urine 120.21 mg/dL; Microalbum/Creatinine Ratio Ur 70.7 ug/mg cr (<30)
[2024-01-20 11:43] LABS: Alanine Aminotransferase 17 U/L (0-40); Albumin Level 4.4 g/dL (3.5-5.0); Alkaline Phosphatase 86 U/L (39-117); Anion Gap 11 (12-20); Aspartate Amino Transferase 17 U/L (5-37); Bilirubin Total 0.7 mg/dL (0.0-1.0); Blood Urea Nitrogen 24 mg/dL (9-16); Calcium 9.6 mg/dL (8.4-10.2); Carbon Dioxide 25 mmol/L (22-29); Chloride 107 mmol/L (96-108); Estimated Glomerular Filt Rate 53; Glucose Random 195 mg/dL (60-115); Potassium 3.9 mmol/L (3.3-5.1); Sodium 139 mmol/L (135-145)
[2024-01-20 12:13] LABS: Vitamin D 25-OH Total 43.4 ng/mL (>30)
== END 2024-01-20 09:51 | disposition home or self-care (01) ==
LOC: HO.LAB 09:50
PROVIDERS: PCP Internal Medicine; Visit Provider Internal Medicine Hypertension Specialist
DX: N18.32 Chronic kidney disease, stage 3b (principal); E11.9 Type 2 diabetes mellitus without complications; E55.9 Vitamin D deficiency, unspecified; D64.9 Anemia, unspecified; R30.0 Dysuria
CPT/HCPCS: 36415; 80053; 81003; 82043; 82306; 82570; 83036; 85025; 99212

== ENCOUNTER 2024-02-29 06:08 | Outpatient (REF) | payer MEDICARE, SELFPAY ==
[2024-02-29 08:25] LABS: Alanine Aminotransferase 24 U/L (0-40); Albumin Level 4.4 g/dL (3.5-5.0); Alkaline Phosphatase 89 U/L (39-117); Anion Gap 14 (12-20); Aspartate Amino Transferase 25 U/L (5-37); Bilirubin Total 0.5 mg/dL (0.0-1.0); Blood Urea Nitrogen 25 mg/dL (9-16); Calcium 9.5 mg/dL (8.4-10.2); Carbon Dioxide 25 mmol/L (22-29); Chloride 108 mmol/L (96-108); Cholesterol 139 mg/dL (<200); Estimated Glomerular Filt Rate 53; Glucose Fasting 145 mg/dL (60-99); HDL Cholesterol 41 mg/dL (>40); LDL Cholesterol Calculated 76 mg/dL (<100); Potassium 4.2 mmol/L (3.3-5.1); Sodium 143 mmol/L (135-145); Triglycerides 111 mg/dL (<150)
== END 2024-02-29 06:09 | disposition home or self-care (01) ==
LOC: HO.LAB 06:08
PROVIDERS: PCP Internal Medicine; Visit Provider Internal Medicine
DX: E78.00 Pure hypercholesterolemia, unspecified (principal)
CPT/HCPCS: 36415; 80053; 80061

== ENCOUNTER 2024-03-05 16:49 | Outpatient (AMB) | payer MEDICARE, SELFPAY ==
[2024-03-05 16:52] VITALS: BP 124/76; PULSE 66; O2SAT 96; BMI 29.5
--- NOTE | 2024-03-05 16:52 | MHC.PC.OV ---
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 blood-glucose meter (FreeStyle Lite Meter kit) As Directed blood-glucose meter,continuous (FreeStyle Keily 3 [place]) As directed blood-glucose sensor (FreeStyle Keily 3 Plus Sensor device) As directed cetirizine 10 mg PO DAILY cholecalciferol (vitamin D3) 25 mcg PO DAILY cyanocobalamin (vitamin B-12) (Vitamin B-12) 50 mcg PO DAILY flash glucose scanning reader (FreeStyle Keily 2 [place]) As directed flash glucose sensor (FreeStyle Keily 2 Sensor kit) APPLY ONCE EVERY 14 DAYS DIRECTED insulin lispro (Humalog KwikPen (U-100) Insulin) subcutaneously 3 times a day; Use up to 20 units before meals when on dexamethasone [iron-vitamins 300 mg PO DAILY] lancets (FreeStyle Lancets) Test four times a day or as directed. magnesium oxide 400 mg PO DAILY 90 days pantoprazole 40 mg PO DAILY@0630 pen needle, diabetic Use four times a day or as directed. Tobacco use date assessed: 03/05/24 Fall risk assessment: No Falls in past year Last assessed Fall Risk: 03/05/24 Dental Screening Dental Screen Date: 03/05/24 Did you have a dental visit in the last 12 months?: Yes Did you have a dental problem in the last 6 months where you did not have access to dental care?: No Was dental information given to patient?: Patient has dentist HPI 4 month f/u HPI Details Patient comes in today for his follow-up visit States that he feels okay He denies any headaches or dizziness Denies any chest pains, no shortness of breath No nausea/vomiting, no abdominal pain No change in bowel habits noted His states that patient has been snoring very loudly when he is sleeping for the past couple of years now and she has noticed lately that has some apneic spells when he sleeping at night and would often end up with coughing fits after a few seconds of apnea She is concerned that he may have sleep apnea and would like to have him checked for this Needs Rx refills for some of his diabetes supplies and would like to have these sent over to [facility] He had his follow-up labs done last week - to discuss his results He is scheduled for his yearly surveillance CT for his colon cancer in April 2024 [facility] Medical History (Updated 03/06/24 @ 06:01 by Bimal Lepe MD) GERD without esophagitis Vitamin B [address] History of colon cancer Small bowel obstruction Coagulase negative Staphylococcus bacteremia Colon cancer Syncope Benign essential hypertension Overweight (BMI 25.0-29.9) Vitamin D deficiency Diabetes mellitus Pure hypercholesterolemia Surgical History Hx of surgical procedure (~08/02/23) History of colonoscopy (~2022) Status post laparotomy History of surgery Status post colon resection (~04/29/22) History of colonoscopy Family History Father Diabetes Hypertension Mother Diabetes Hypertension Mother Colon cancer Unknown Colon cancer Daughter Breast cancer Social History Household Members: Spouse Housing: House Are you a primary respiratory care specialist to a significant other at home: No Do you presently have visiting nurse or other home services: No Unable to assess alcohol history related to: Unknown Alcohol intake: never Patient Tobacco Use Status: Never used Tobacco e-Cigarette/Vaping Use: Never Used Second Hand Smoke Exposure: No Advance Directives Date on File: 12/24/21 service: No Current occupational status: retired Cognitive needs: No Hearing needs: No Vision needs: Yes Questionnaire PHQ-9 Over the last 2 weeks, how often have you been bothered by any of the following problems? 1. Little interest or pleasure in doing things: not at all 2. Feeling down, depressed, or hopeless: not at all 3. Trouble falling or staying asleep, or sleeping too much: not at all 4. Feeling tired or having little energy: not at all 5. Poor appetite or overeating: not at all 6. Feeling bad about yourself - or that you are a failure or have let yourself or your family down: not at all 7. Trouble concentrating on things, such as reading the newspaper or watching television: not at all 8. Moving or speaking so slowly that other people could have noticed. Or the opposite - being so fidgety or restless that you have been moving around a lot more than usual: not at all 9. Thoughts that you would be better off or of hurting yourself in some way: not at all Total score: 0 Depression Screening Interpretation: Negative Depression Screening Done: Yes 16215 - PHQ-9 Billing: Yes Source: Developed by Drs. Cooper Beck, Gertrude Vega, Santo Tejada and colleagues, with an educational otto from [employer]. Thrive Questionnaire Date Thrive assessed: 03/05/24 I am a: Patient What is your living situation today?: I have a steady place to live Within the past 12 months, did the food you bought not last and you didn't have the money to get more?: Never true Within the past 12 months, did you worry whether your food would run out before you got money to buy more?: Never true Do you have trouble paying for medicines?: No Do you have trouble getting transportation to medical appointments?: No Do you have trouble paying your heating and electricity bill?: No Do you have trouble taking care of your child, family member or friend?: No Do you have trouble with day-to-day activities such as bathing, preparing meals, shopping, managing finances, etc.?: No Are you currently unemployed and looking for a job?: No Are you interested in more education?: No Please select the resources that you would like help with: None Currently or been in a relationship where the following occur: No concerns reported THRIVE Score: 0 AUDIT C Alcohol Use Questionnaire (AUDIT-C) 1. How often do you have a drink containing alcohol?: Never 3. How often do you have six or more drinks on one occasion?: Never Total Score: 0 Score Reviewed/Action Taken: Yes AALIYAH-7 AMB Questionnaire AALIYAH-7 Date AALIYAH - 7 assessed: 03/05/24 Feeling nervous, anxious, or on edge: 0 = Not at all Not being able to stop or control worryin = Not at all Worrying too much about different things: 0 = Not at all Trouble relaxin = Not at all Being so restless that it is hard to sit still: 0 = Not at all Becoming easily annoyed or irritable: 0 = Not at all Feeling afraid as if something awful might happen: 0 = Not at all Total AALIYAH-7 score (0-4 normal; 5-9 mild; 10-14 moderate; 15-21 severe): 0 Source: Developed by Drs. Cooper Beck, Gertrude Vega, Santo Tejada and colleagues, with an educational otto from [employer]. Review of Systems Const Denies chills, Denies fatigue, Denies fever(s), Denies headache(s), Reports snoring and Reports stops breathing during sleep ENT Denies dysphagia, Denies dizziness, Denies otalgia, Denies headache(s), Denies neck pain, Denies odynophagia and Denies sore throat Card Denies chest pain, Denies palpitations and Denies dyspnea Resp Denies cough, Denies dyspnea and Reports snoring GI Denies abdominal pain, Denies hematochezia, Denies constipation, Denies dysphagia, Denies heartburn, Denies diarrhea, Denies nausea, Denies odynophagia and Denies vomiting Denies dysuria, Denies nocturia and Denies urinary frequency Musc Denies neck pain Skin/Breast Denies rash Neuro Denies dizziness and Denies headache(s) Endo Denies fatigue and Denies palpitations Physical exam (Primary Care) Vital Signs: Last Vital Signs Pulse 66 03/05/24 16:52 BP 124/76 03/05/24 16:52 Pulse Ox 96 03/05/24 16:52 Oxygen Delivery Method Room Air 03/05/24 16:52 BMI result Body Mass Index 29.5 Tobacco/Smoking Status: Tobacco use Status Tobacco use date assessed 03/05/24 03/05/24 16:58 Patient Tobacco Use Status Never used Tobacco 03/05/24 16:53 e-Cigarette/Vaping Use Never Used 03/05/24 16:53 PHQ-9: PHQ-9 Score PHQ-9: Total score 0 03/05/24 17:17 Depression Screening Interpretation: Negative Thrive Assessment: Date of Thrive Assessment Date Thrive assessed 03/05/24 03/05/24 16:58 Currently or been in a relationship where the following occur: No concerns reported Const General: no acute distress and alert HENMT Ears: TM's normal bilaterally and EAC's normal Throat: Yes posterior oropharynx normal and Yes tonsils normal Neck Neck: Yes no lymphadenopathy and Yes supple Thyroid: Thyroid normal Resp Auscultation: clear to auscultation bilaterally, no rales and no wheezes Cardio Rate: regular rate Rhythm: regular rhythm Heart sounds: no murmurs GI Palpation (GI): Soft to palpation and nontender Auscultation: normal bowel sounds Skin Rashes: no rashes Extrem General: Yes no clubbing, cyanosis or edema Results Reviewed Results Reviewed: Laboratory Tests 10/20/23 01/20/24 01/20/24 06:32 10:25 10:27 WBC 7.6 Hgb 13.7 L Hct 40.5 L Plt Count 139 L Sodium Potassium Creatinine Estimated GFR Fasting Glucose Hemoglobin A1c % 7.2 H Calcium AST ALT Triglycerides Cholesterol LDL Cholesterol, Calc HDL Cholesterol 25-OH Vitamin D Total 43.4 TSH 1.47 Ur Specific [place] 1.020 Urine Protein Trace Urine Glucose (UA) Negative Urine Blood Negative Urine Nitrite Negative Ur Leukocyte Esterase Negative Microalb/Creat Ratio 70.7 H 02/29/24 06:27 WBC Hgb Hct Plt Count Sodium 143 Potassium 4.2 Creatinine 1.32 Estimated GFR 53 Fasting Glucose 145 H Hemoglobin A1c % Calcium 9.5 AST 25 ALT 24 Triglycerides 111 Cholesterol 139 LDL Cholesterol, Calc 76 HDL Cholesterol 41 25-OH Vitamin D Total TSH Ur Specific [place] Urine Protein Urine Glucose (UA) Urine Blood Urine Nitrite Ur Leukocyte Esterase Microalb/Creat Ratio Coding Level of Care Code Est Pt Level 4 (24668) Diagnoses 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 Colon location: transverse Witnessed apneic spells R06.81 Type 2 diabetes mellitus with hyperglycemia, without long-term current use of insulin E11.65 Diabetes mellitus type: type 2 Diabetes mellitus long term acute care registered nurse insulin use: without long term acute care registered nurse use Diabetes mellitus complication status: with hyperglycemia Benign essential hypertension I10 Pure hypercholesterolemia E78.00 Vitamin D deficiency E55.9 Stage 3a chronic kidney disease N18.31 Chronic kidney disease stage 3 subtype: stage 3a (GFR 45-59) GERD without esophagitis K21.9 Overweight (BMI 25.0-29.9) E66.3 Additional Codes PHQ-9 - 69619 - PHQ-9 Billing: Yes ([id number]) Assessment & Plan Assessment & Plan (1) Colon cancer: Code(s): C18.9 - Malignant neoplasm of colon, unspecified Category: Medical Qualifiers: Colon location: transverse Qualified Code(s): C18.4 - Malignant neoplasm of transverse colon Plan: S/P laparotomy and resection of proximal transverse colon, with diverting loop ileostomy on 04/29/[address] Fam Pathology revealed invasive adenocarcinoma, with tumor perforating the visceral peritoneum (pT4a), focal high grade adenomatous dysplasia and lymph nodes and anastomotic tissues negative for tumor (pN0) He completed adjuvant chemotherapy (modified FOLFOX 6 regimen) although he developed SBO due to adhesions back in December 2022 and required exploratory laparotomy with lysis of extensive adhesions He had his loop ileostomy reversed successfully on 08/02/2023 Follow-up with oncology and with surgery as scheduled for continuing surveillance - he is scheduled for his yearly surveillance CT for colon cancer in April 2024 (2) Witnessed apneic spells: Code(s): R06.81 - Apnea, not elsewhere classified Category: Medical Plan: Will refer him to Sleep Medicine for further evaluation and management (3) Diabetes mellitus: Code(s): E11.9 - Type 2 diabetes mellitus without complications Category: Medical Qualifiers: Diabetes mellitus type: type 2 Diabetes mellitus prison insulin use: without long term acute care registered nurse use Diabetes mellitus complication status: with hyperglycemia Qualified Code(s): E11.65 - Type 2 diabetes mellitus with hyperglycemia Plan: His HgbA1c was at 7.2% on his labs done a few weeks ago on 01/20/2024 (was previously at 6.8% a few months ago) - goal is < 7.0% Reinforced diabetic diet Continue Humalog TID with meals dosed per sliding scale; Metformin ER 500 mg was discontinued a few months ago due to [place] and he was also taken off Januvia 50 mg by endocrinology a few months ago (4) Benign essential hypertension: Code(s): I10 - Essential (primary) hypertension Category: Medical Plan: Reinforced low sodium diet - goal is systolic BP of at least 140 mm or less Continue Amlodipine 5 mg QD He was previously on Lisinopril 20 mg QD but this was discontinued when he presented to the ER a few months ago in [place] Patient is reminded to continue monitoring his blood pressure regularly (5) Pure hypercholesterolemia: Code(s): E78.00 - Pure hypercholesterolemia, unspecified Category: Medical Plan: Results of his labs done last week reviewed and discussed with patient Reinforced low cholesterol diet Continue Atorvastatin 10 mg QD Will recheck his labs and fasting lipids in 4 months for follow up (6) Vitamin D deficiency: Code(s): E55.9 - Vitamin D deficiency, unspecified Category: Medical Plan: Continue Vitamin D3 1000 units QD (7) CKD (chronic kidney disease) stage 3, GFR 30-59 ml/min: Code(s): N18.30 - Chronic kidney disease, stage 3 unspecified Category: Medical Qualifiers: Chronic kidney disease stage 3 subtype: stage 3a (GFR 45-59) Qualified Code(s): N18.31 - Chronic kidney disease, stage 3a Plan: His renal function appears to have stabilized again over the past few months Patient is again reminded to make sure he stays adequately hydrated all the time Will continue to monitor his renal function closely Follow-up with nephrology as scheduled (8) GERD without esophagitis: Code(s): K21.9 - Gastro-esophageal reflux disease without esophagitis Category: Medical Plan: Dietary restrictions reinforced Continue Pantoprazole 40 mg QD (9) Overweight (BMI 25.0-29.9): Code(s): E66.3 - Overweight Category: Medical Plan: Reinforced diet/exercise as tolerated/lose weight Plan Follow up in 4 months Orders: Orders Comprehensive [place]. Panel Fast 4 Months E78.00 - Pure hypercholesterolemia, unspecified Complete Blood Count Auto Diff 4 Months D64.9 - Anemia, unspecified TSH reflex Free T4 4 Months E78.00 - Pure hypercholesterolemia, unspecified Lipid Panel 4 Months E78.00 - Pure hypercholesterolemia, unspecified Hemoglobin A1c 4 Months E11.9 - Type 2 diabetes mellitus without complications Microalbumin, Random (w Creat) 4 Months E11.9 - Type 2 diabetes mellitus without complications UA CC w/rflx Micro + Cult 4 Months R30.0 - Dysuria Vitamin D 25-OH Total 4 Months E55.9 - Vitamin D deficiency, unspecified Referrals Sleep Medicine Referral R06.81 - Apnea, not elsewhere classified, R06.83 - Snoring Medications: Refilled flash glucose sensor (FreeStyle Keily 2 Sensor kit) APPLY ONCE EVERY 14 DAYS DIRECTED 2 ea 3RF blood sugar diagnostic (FreeStyle Test strips) As directed 100 ea 3RF [BD Ultra Fine [place] Pen Needle 32 G x 4/32 ] Use as directed up to 4 times a day 100 ea 12RF [id number] flash glucose scanning reader (FreeStyle Keily 2 [place]) As directed 1 ea 3RF lancets (FreeStyle Lancets) Test four times a day or as directed. 100 ea 0RF E11.9 - Type 2 diabetes mellitus without complications
== END 2024-03-05 17:40 | disposition home or self-care (01) ==
PROVIDERS: PCP Internal Medicine; Visit Provider Internal Medicine
DX: I12.9 Hypertensive chronic kidney disease with stage 1 through stage 4 chronic kidney disease, or unspecified chronic kidney disease (principal); E11.65 Type 2 diabetes mellitus with hyperglycemia; C18.4 Malignant neoplasm of transverse colon; N18.31 Chronic kidney disease, stage 3a; R06.81 Apnea, not elsewhere classified; E78.00 Pure hypercholesterolemia, unspecified; E55.9 Vitamin D deficiency, unspecified; K21.9 Gastro-esophageal reflux disease without esophagitis; E66.3 Overweight

== ENCOUNTER → 2024-03-05 16:49 | Outpatient (BNVA) | payer MEDICARE, SELFPAY | PROVIDERS: PCP Internal Medicine; Visit Provider Internal Medicine | DX: C18.4 Malignant neoplasm of transverse colon (principal); R06.81 Apnea, not elsewhere classified; E11.65 Type 2 diabetes mellitus with hyperglycemia; E78.00 Pure hypercholesterolemia, unspecified; E55.9 Vitamin D deficiency, unspecified; I12.9 Hypertensive chronic kidney disease with stage 1 through stage 4 chronic kidney disease, or unspecified chronic kidney disease; E11.22 Type 2 diabetes mellitus with diabetic chronic kidney disease; N18.31 Chronic kidney disease, stage 3a; K21.9 Gastro-esophageal reflux disease without esophagitis; E66.3 Overweight | CPT/HCPCS: 96127; 99212 ==

== ENCOUNTER 2024-03-26 15:57 | Outpatient (AMB) | payer MEDICARE, SELFPAY ==
[2024-03-26 16:01] VITALS: BP 124/82; PULSE 65; O2SAT 95; BMI 29.6
--- NOTE | 2024-03-26 16:01 | AM.OFFVISMDC ---
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 blood sugar diagnostic (FreeStyle Test strips) As directed blood-glucose meter (FreeStyle Lite Meter kit) As Directed blood-glucose meter,continuous (FreeStyle Keily 3 Laurel) As directed blood-glucose sensor (FreeStyle Keily 3 Plus Sensor device) As directed cetirizine 10 mg PO DAILY cholecalciferol (vitamin D3) 25 mcg PO DAILY cyanocobalamin (vitamin B-12) (Vitamin B-12) 50 mcg PO DAILY flash glucose scanning reader (FreeStyle Keily 2 Laurel) As directed flash glucose sensor (FreeStyle Keily 2 Sensor kit) APPLY ONCE EVERY 14 DAYS DIRECTED insulin lispro (Humalog KwikPen (U-100) Insulin) subcutaneously 3 times a day; Use up to 20 units before meals when on dexamethasone [iron-vitamins 300 mg PO DAILY] lancets (FreeStyle Lancets) Test four times a day or as directed. magnesium oxide 400 mg PO DAILY 90 days pantoprazole 40 mg PO DAILY@0630 pen needle, diabetic Use four times a day or as directed. Do you need a note to return to daycare/school/sports/work: No HPI SAWV G0439 HPI Details Patient comes in today for his Annual Medicare Wellness Exam States that he feels okay and he has no acute issues He would also like to see if he can get his flu shot today [place] of care was reviewed and updated today Patient has a healthcare proxy in place and on file; they were provided with a MOLST form and instructed to complete these as soon as possible IPPE/AWV: c/o of Annual Wellness Visit, subsequent visit. Medical / Social History Reviewed Past Medical History Yes . [place] of Care / Care Team list updated Yes . Surgical/Hospitalization History Yes . Current Medications (including OTC and supplements) Yes . Family History Yes . Tobacco Control form Yes . AUDIT-C (Alcohol use) form Yes . Illicit drug use in Social History Yes . Current diagnosis of depression? No Appropriate PHQ2/PHQ9 completed Yes . Data entered by Satellite Tv Technician Installer and reviewed by provider Home Safety Throw rugs? No Grab bars? No Raised toilet seats? No Working smoke detectors? Yes Working carbon monoxide detectors? Yes Data entered by Satellite Tv Technician Installer and reviewed by provider Activities of Daily Living (ADLs) Difficulty bathing or showering? No Difficulty dressing? No Difficulty using the toilet? No Difficulty getting in and out of bed? No Difficulty walking? No Receives help from another person with any of the above tasks? No Instrumental Activities of Daily Living (IADLs) Uses the telephone without help Gets to places out of walking distance without help Goes shopping for groceries without help Prepares own meals without help Does own minor home maintenance without help Does own laundry without help Does own housework without help Manages own money without help Currently takes medications? Yes Takes medication without help End-of-Life Planning Discussed advance directive Yes Advance directive on file Discussed wishes expressed in advance directive agreed to following patient's wishes Fall Risk: Fall History Have you had any falls with injury in the past year? No . Have you had two or more falls in the past year? No . Fall Risk Assessment: No falls in the past year . HRA filled out by the patient, reviewed by Provider and scanned. [facility] Medical History GERD without esophagitis Vitamin B [address] History of colon cancer Small bowel obstruction Coagulase negative Staphylococcus bacteremia Colon cancer Syncope Benign essential hypertension Overweight (BMI 25.0-29.9) Vitamin D deficiency Diabetes mellitus Pure hypercholesterolemia Surgical History Hx of surgical procedure (~08/02/23) History of colonoscopy (~2022) Status post laparotomy History of surgery Status post colon resection (~04/29/22) History of colonoscopy Family History Father Diabetes Hypertension Mother Diabetes Hypertension Mother Colon cancer Unknown Colon cancer Daughter Breast cancer Social History Household Members: Spouse Housing: House Are you a primary healthcare architect to a significant other at home: No Do you presently have visiting nurse or other home services: No Unable to assess alcohol history related to: Unknown Alcohol intake: never Patient Tobacco Use Status: Never used Tobacco e-Cigarette/Vaping Use: Never Used Second Hand Smoke Exposure: No Advance Directives Date on File: 12/24/21 service: No Current occupational status: retired Cognitive needs: No Hearing needs: No Vision needs: Yes Questionnaire Medicare Wellness Checkup [age] What gender do you identify with?: male During the past 4 weeks, how much have you been bothered by emotional problems such as feeling anxious, depressed, irritable, sad or downhearted, and blue?: not at all During the past 4 weeks, has your physical & emotional health limited your social activities with family, friends, neighbors, or groups?: not at all During the past 4 weeks, how much bodily pain have you generally had?: no pain During the past 4 weeks, was someone available to help you if you needed & wanted help?: yes, as much as I wanted During the past 4 weeks, what was the hardest physical activity you could do for at least 2 minutes?: moderate Can you get to places out of walking distance without help? (For eg., can you travel alone on buses, taxis or drive your car?): Yes Can you go shopping for groceries or clothes without someone's help?: Yes Can you prepare your own meals?: Yes Can you do your housework without help?: Yes Because of any health problems, do you need the help of another person with your personal care needs such as eating, bathing, dressing or getting around the house?: No Can you handle your own money without help?: Yes During the past 4 weeks, how would you rate your health in general?: good During the past 4 weeks how have things been going for you?: good & bad parts about equal Are you having difficulties driving your car?: no Do you always fasten your seat belt when you are in a car?: yes, sometimes During past 4 weeks, have you been bothered by the following: never: Falling or dizzy when standing up, Sexual problems?, Trouble eating well?, Teeth or denture problems? and Problems using the telephone? and sometimes: Tiredness or fatigue? Have you fallen 2 or more times in the past year?: No Are you afraid of falling?: No Are you a smoker?: no During the past 4 weeks, how many drinks of wine, beer, or other alcoholic beverages did you have?: no alcohol at all Do you exercise for about 20 minutes 3 or more times a week?: yes, some of the time Have you been given information to help with the following?: no: Hazards in your house that might hurt you? and no: Keeping track of your medications? How often do you have trouble taking medicines the way you have been told to take them?: I always take medicine as prescribed How confident are you that you can control & manage most of your health problems?: very confident What is your race?: or origin or descent Mini Mental State Exam (MMSE) Orientation What is the (year) (season) (date) (day) (month)?: year, season, date, day and month Where are we (state) (county) (town or city) (hospital) (floor)?: state, county, town or city, hospital/clinic and floor Score Score: 10 Activity of Daily Living Bathing - sponge bath, tub bath or shower: receives no assistance (gets in/out by self, if usual bathing means Dressing - getting clothes from closets & drawers, including inner/outer garments & fasteners.: gets clothes & gets completely dressed without help Toileting - going to the 'toilet room' for urine/bowel elimination & cleaning self/arranging clothes: goes to toilet room, cleans self, arranges clothes without help Transfer: moves in & out of bed and chair without help (may use support object) Continence: controls urination/bowel movements completely by self Feeding: feeds self without help Total Score: 0 Information obtained from: patient Using telephone: independent Traveling: independent Shopping: independent Preparing meals: independent Housework: independent Taking medicine: independent Managing money: independent PHQ-9 Over the last 2 weeks, how often have you been bothered by any of the following problems? 1. Little interest or pleasure in doing things: not at all 2. Feeling down, depressed, or hopeless: not at all 3. Trouble falling or staying asleep, or sleeping too much: not at all 4. Feeling tired or having little energy: not at all 5. Poor appetite or overeating: not at all 6. Feeling bad about yourself - or that you are a failure or have let yourself or your family down: not at all 7. Trouble concentrating on things, such as reading the newspaper or watching television: not at all 8. Moving or speaking so slowly that other people could have noticed. Or the opposite - being so fidgety or restless that you have been moving around a lot more than usual: not at all 9. Thoughts that you would be better off or of hurting yourself in some way: not at all Total score: 0 Depression Screening Interpretation: Negative Depression Screening Done: Yes 83857 - PHQ-9 Billing: Yes Source: Developed by Drs. Cooper Beck, Gertrude Vega, Santo Tejada and colleagues, with an educational otto from [employer]. PHQ-2/PHQ-9 PHQ-2 Over the last 2 weeks, how often have you been bothered by any of the following problems? 1. Little interest or pleasure in doing things: not at all 2. Feeling down, depressed, or hopeless: not at all Total score: 0 If score is 3 or greater, continue 3. Trouble falling or staying asleep, or sleeping too much: not at all 4. Feeling tired or having little energy: not at all 5. Poor appetite or overeating: not at all 6. Feeling bad about yourself - or that you are a failure or have let yourself or your family down: not at all 7. Trouble concentrating on things, such as reading the newspaper or watching television: not at all 8. Moving or speaking so slowly that other people could have noticed. Or the opposite - being so fidgety or restless that you have been moving around a lot more than usual: not at all 9. Thoughts that you would be better off or of hurting yourself in some way: not at all Total score: 0 0-4 None-Minimal, 5-9 Mild, 10-14 Moderate, 15-19 Moderately Severe, 20-27 Severe Source: Developed by Drs. Cooper Beck, Gertrude Vega, Santo Tejada and colleagues, with an educational otto from [employer]. Thrive Questionnaire Date Thrive assessed: 03/26/24 I am a: Patient What is your living situation today?: I have a steady place to live Within the past 12 months, did the food you bought not last and you didn't have the money to get more?: Never true Within the past 12 months, did you worry whether your food would run out before you got money to buy more?: Never true Do you have trouble paying for medicines?: No Do you have trouble getting transportation to medical appointments?: No Do you have trouble paying your heating and electricity bill?: No Do you have trouble taking care of your child, family member or friend?: No Do you have trouble with day-to-day activities such as bathing, preparing meals, shopping, managing finances, etc.?: No Are you currently unemployed and looking for a job?: No Are you interested in more education?: No Please select the resources that you would like help with: None Currently or been in a relationship where the following occur: No concerns reported THRIVE Score: 0 AALIYAH-7 AMB Questionnaire AALIYAH-7 Date AALIYAH - 7 assessed: 03/26/24 Feeling nervous, anxious, or on edge: 0 = Not at all Not being able to stop or control worryin = Not at all Worrying too much about different things: 0 = Not at all Trouble relaxin = Not at all Being so restless that it is hard to sit still: 0 = Not at all Becoming easily annoyed or irritable: 0 = Not at all Feeling afraid as if something awful might happen: 0 = Not at all Total AALIYAH-7 score (0-4 normal; 5-9 mild; 10-14 moderate; 15-21 severe): 0 Source: Developed by Drs. Cooper Beck, Gertrude Vega, Santo Tejada and colleagues, with an educational otto from [employer]. Review of Systems Const Denies chills, Denies fatigue, Denies fever(s) and Denies headache(s) ENT Denies dysphagia, Denies dizziness, Denies otalgia, Denies headache(s), Denies neck pain, Denies odynophagia and Denies sore throat Card Denies chest pain, Denies palpitations and Denies dyspnea Resp Denies cough and Denies dyspnea GI Denies abdominal pain, Denies hematochezia, Denies constipation, Denies dysphagia, Denies heartburn, Denies diarrhea, Denies nausea, Denies odynophagia and Denies vomiting Denies dysuria, Denies nocturia and Denies urinary frequency Musc Denies neck pain Skin/Breast Denies rash Neuro Denies dizziness and Denies headache(s) Endo Denies fatigue and Denies palpitations Physical Exam Vital Signs: Last Vital Signs Pulse 65 03/26/24 16:01 BP 124/82 03/26/24 16:01 Pulse Ox 95 03/26/24 16:01 Oxygen Delivery Method Room Air 03/26/24 16:01 BMI result Body Mass Index 29.6 IPPE/AWV: Balance Romberg Yes . Tandem walk Yes . Walk and Turn Yes . Rise from sit to stand Yes . Vision Corrective lens No Vision screen pass Hearing Whisper test pass . Urinary incont. no. EKG Not clinically necessary. Const General: no acute distress and alert Orientation/consciousness: patient oriented x3 Neck Neck: Yes no lymphadenopathy and Yes supple Thyroid: Thyroid normal Resp Auscultation: clear to auscultation bilaterally Cardio Rate: regular rate Rhythm: regular rhythm Heart sounds: no murmurs GI Palpation (GI): Soft to palpation and nontender General: Yes no CVA tenderness Back/Spine/Pelvis Back: no CVA tenderness Thoracic/Lumbar Spine: No lumbar spinal tenderness Skin Rashes: no rashes Neuro General: patient oriented x3 Cognition (Neuro): normal cognition Extrem General: Yes no clubbing, cyanosis or edema Psych Thought process: Normal thought process present Office Procedures Flu Questionnaire Does the patient have a severe egg allergy?: No Does the patient have severe life threatening allergies?: No Does the patient have a fever or illness today?: No Has the patient ever had Guillain-[place] Syndrome?: No Has the patient ever had any past reaction to a flu shot?: No Immunizations Fluarix Triv [id number] (PF) 45 mcg (15 mcg x 3)/0.5 mL IM syringe Performing Provider: Bimal Lepe MD Performing Location[facility] [place] [facility] Administered by: JEREMY Mejia on 03/26/24 16:30 Dose Route Admin Location Dispensed Lot Number Expiration Date NDC Carpenter Mold 0.5 mL IM Left Deltoid 0.5 mL [id number] 10/22/24 [id number] Channel [employer]lect VIS Given Date VIS Provided VIS Publication Date 03/26/24 Single Vaccine 20 Eligibility Eligibility Date Funding Source Not [facility] Eligible 03/26/24 Private Assessment & Plan Assessment & Plan (1) Medicare annual wellness visit, subsequent: Code(s): Z00.00 - Encounter for general adult medical examination without abnormal findings Plan: HRA form discsussed and completed with patient; form will be scanned into patient's chart JAMSHID updated He is up-to-date with his cancer screenings Plan As requested, flu vaccine given to patient today Follow up as scheduled in June 2024 Orders: Orders Influenza [id number] Immunization Today Z23 - Encounter for immunization Quality Reporting (2019) Depression/Bipolar (159/160/161/177) PHQ-9: Total score: 0 Coding Level of Care Code Medicare Subsequent (G0439) Diagnoses Medicare annual wellness visit, subsequent Z00.00 CPT Codes Advance Care Planning - Advance Care Planning discussion: On file, no changes ([id number]) Advance Care Planning - Time spent: 1-15 minutes, on File ([id number]) Additional Codes PHQ-9 - 75932 - PHQ-9 Billing: Yes ([id number]) Advance Care Planning Advance Care Planning discussion: On file, no changes Date of discussion: 03/26/24 Who was present: patient, spouse, PCP Forms completed: MOLST (handed to patient to complete at home at his convenience) Time spent: 1-15 minutes, on File
== END 2024-03-26 16:39 | disposition home or self-care (01) ==
PROVIDERS: PCP Internal Medicine; Visit Provider Internal Medicine
DX: Z00.00 Encounter for general adult medical examination without abnormal findings (principal); Z23 Encounter for immunization

== ENCOUNTER → 2024-03-26 15:57 | Outpatient (BNVA) | payer MEDICARE, SELFPAY | PROVIDERS: PCP Internal Medicine; Visit Provider Internal Medicine | DX: Z00.00 Encounter for general adult medical examination without abnormal findings (principal); Z23 Encounter for immunization; E11.9 Type 2 diabetes mellitus without complications | CPT/HCPCS: 90471; 90656; 96127 ==

== ENCOUNTER 2024-04-03 12:12 | Outpatient (AMB) | payer MEDICARE, SELFPAY ==
--- NOTE | 2024-04-03 12:34 | A.OFFVIS_ITS ---
VS Expanded 04/03/24 12:40 Height 5 ft 4 in Weight 172 lb 2 oz BMI 29.5 Intake Visit Reasons: T2DM/Confirmed-k.h Allergies No Known Allergies [No Known Allergies*] Allergy (Verified 03/26/24 16:14) Nutrition Presentation Details: Pt presents for MNT f/u for T2DM Pt reports he was in [place] on vacation and was doing well, noticed blood sugar much improved. Back in [place] and notices fasting bg ranging from 15-180s. Pt di dnot bring reader to this appt. Pt is on fast acting insulin , no basal insulin. Pt reports often eating late due to lack of time for evening dinner and this may be reason for elevated BG in the fasting state food frequency Fish twice/wk fruits: 2-3 /day dairy : choosing low fat/yogurts 3x/wk vegetables: 4 x/wk and choosing starchy veg starches 15-20 fried foods 1 x/wk physical activity: daily life etoh/smoking denies BS Monitoring Most Recent Diabetes Results: Microalb/Creat Ratio 70.7 ug/mg cr (<30) H 01/20/24 Cholesterol 139 mg/dL (<200) 02/29/24 HDL Cholesterol 41 mg/dL (>40) 02/29/24 Triglycerides 111 mg/dL (<150) 02/29/24 Creatinine 1.32 mg/dL (0.5-1.4) 02/29/24 Blood Urea Nitrogen 25 mg/dL (9-16) H 02/29/24 Sodium 143 mmol/L (135-145) 02/29/24 Potassium 4.2 mmol/L (3.3-5.1) 02/29/24 Chloride 108 mmol/L (96-108) 02/29/24 Carbon Dioxide 25 mmol/L (22-29) 02/29/24 Calcium 9.5 mg/dL (8.4-10.2) 02/29/24 AST 25 U/L (5-37) 02/29/24 ALT 24 U/L (0-40) 02/29/24 Total Protein 7.0 g/dL (6.5-8.0) 02/29/24 Albumin 4.4 g/dL (3.5-5.0) 02/29/24 [facility] Medical History GERD without esophagitis Vitamin B [address] History of colon cancer Small bowel obstruction Coagulase negative Staphylococcus bacteremia Colon cancer Syncope Benign essential hypertension Overweight (BMI 25.0-29.9) Vitamin D deficiency Diabetes mellitus Pure hypercholesterolemia Surgical History Hx of surgical procedure (~08/02/23) History of colonoscopy (~2022) Status post laparotomy History of surgery Status post colon resection (~04/29/22) History of colonoscopy Family History Father Diabetes Hypertension Mother Diabetes Hypertension Mother Colon cancer Unknown Colon cancer Daughter Breast cancer Social History Household Members: Spouse Housing: House Are you a primary medicare coordinator to a significant other at home: No Do you presently have visiting nurse or other home services: No Unable to assess alcohol history related to: Unknown Alcohol intake: never Patient Tobacco Use Status: Never used Tobacco e-Cigarette/Vaping Use: Never Used Second Hand Smoke Exposure: No Advance Directives Date on File: 12/24/21 service: No Current occupational status: retired Cognitive needs: No Hearing needs: No Vision needs: Yes Assessment & Plan Assessment & Plan (1) Diabetes: Code(s): E11.9 - Type 2 diabetes mellitus without complications Category: Medical Plan: Pt: consider meal replacement at 5 pm and work on reduction of portion at late meal used wt: 75 kg Est kcal needs as per MSJ: 1965 (40% carb, 30% protein/fat) Est fluid needs as per 25-30 ml/d: 1875- 2250 Est prot per day as per 1 g/kg bw: 75 Recommend fiber intake : 8-10 g per day and gradually increase as tolerated Recommend sodium intake per day : less than 2000 mg Educated patient on: ( R = reviewed V = verbalizes understanding N/R = needs review N/A = not applicable * Food sources of carbohydrate, adequate serving sizes and its role in various health conditions: R * Differences between complex carbohydrates a simple carbohydrates, role of fiber in diet: R * Differences between types of fats and role in diet (mono on saturated fat fatty acids, saturated fatty acids, trans fats): R basic low fat concepts * Food sources of protein : R * Food sources of sodium in salt and healthy modifications for heart health in kidney health: R V * Vitamins and minerals: R * Healthy plate method concept: R , V * Physical activity: Benefits a precaution: R, V * Hypoglycemia protocol (rule of 15): R, V * Dietary prevention of Hyperglycemia: R , V PCP RECOMMENDATION: Pt may be in need of basal insulin. Pt did not bring glucometer to this appt, however Pt mentions having fasting blood glucose between 150-180s , not on basal insulin or oral hypoglycemic agents but taking Humalog on a sliding scale with meals and takes insulin with most meals , 2-3 times a day. Pt was advised to monitor blood glucose and bring blood sugar log to discuss levels and medications with MD at f/u visit for further evaluation Patient Instructions: continue following healthy plat emethod Have a meal replacement in the evening instead of skipping it as this may help reduce night appetite Coding Level of Care Code Nutr Indiv Subseq (57554) Diagnoses Diabetes E11.9 Time Spent (min) 30
[2024-04-03 12:40] VITALS: BMI 29.5
== END 2024-04-03 13:31 | disposition home or self-care (01) ==
PROVIDERS: PCP Internal Medicine; Visit Provider Dietitian, Registered
DX: E11.9 Type 2 diabetes mellitus without complications (principal)

== ENCOUNTER → 2024-04-03 12:12 | Outpatient (BNVA) | payer MEDICARE, SELFPAY | PROVIDERS: PCP Internal Medicine; Visit Provider Dietitian, Registered | DX: E11.9 Type 2 diabetes mellitus without complications (principal) | CPT/HCPCS: 97803 ==

== ENCOUNTER 2024-04-11 08:14 | Outpatient (AMB) | payer MEDICARE, SELFPAY ==
[2024-04-11 08:15] VITALS: BP 132/78; PULSE 67; O2SAT 96; BMI 29.7
--- NOTE | 2024-04-11 08:15 | A.OFFVIS_ITS ---
Vital Signs 04/11/24 08:15 Height 5 ft 4 in Weight 173 lb 4 oz BMI 29.7 BP 132/78 Blood Pressure Location Lt brachial Position Sitting Pulse 67 Pulse Source Pulse Oximeter Pulse Oximetry (%) 96 Oxygen Delivery Method Room Air Intake Visit Reasons: I-CONTRACT IMPLEMENTATION ANALYST: Apnea & Snoring Intake Note: Pt presents to the office today for a new patient visit for apnea and snoring. Allergies No Known Allergies [No Known Allergies*] Allergy (Verified 04/11/24 08:18) Medication List - Last Reconciled 04/11/24 by Dominguez Cummings PA-C amlodipine 5 mg PO DAILY 90 days atorvastatin 10 mg PO BEDTIME 90 days [BD Ultra Fine Floridalma Pen Needle 32 G x Use as directed up to 4 times a day] blood sugar diagnostic (FreeStyle Test strips) As directed blood sugar diagnostic (FreeStyle Lite Strips) Test four times a day or as directed. blood-glucose meter (FreeStyle Lite Meter kit) As Directed blood-glucose meter,continuous (FreeStyle Keily 3 [place]) As directed blood-glucose sensor (FreeStyle Keily 3 Plus Sensor device) As directed cetirizine 10 mg PO DAILY cholecalciferol (vitamin D3) 25 mcg PO DAILY cyanocobalamin (vitamin B-12) (Vitamin B-12) 50 mcg PO DAILY flash glucose scanning reader (FreeStyle Keily 2 [place]) As directed flash glucose sensor (FreeStyle Keily 2 Sensor kit) APPLY ONCE EVERY 14 DAYS DIRECTED insulin lispro (Humalog KwikPen (U-100) Insulin) subcutaneously 3 times a day; Use up to 20 units before meals when on dexamethasone [iron-vitamins 300 mg PO DAILY] lancets (FreeStyle Lancets) Test four times a day or as directed. magnesium oxide 400 mg PO DAILY 90 days pantoprazole 40 mg PO DAILY@0630 pen needle, diabetic Use four times a day or as directed. HPI Comments Details: 73 year old male h/o colon cancer he is now in remission referred to us by PCP for sleep evaluation. He is retired and has irregular sleeping pattern goes to sleep at 1am most nights, wakes up for the bathroom 2x a night, falls back asleep and wakes up at 10-11am most days. He feels good in the morning but fatigued most days, falls asleep in front of the tv. He snores loudly at night, and wakes himself up with multiple episodes of gasping per . She sometimes has to nudge him to wake up when he stops gris thing and she notices he has been moving his legs alot. He continues to have numbness bilaterally in both feet and often has to move his feet to get comfortable at night. He occasionally forgets names and streets when driving. He had some vision changes, with floaters, bleeding and is followed with [facility]. He would like to walk more but with the uncomfortable, numbness of toes and feet he feels off balance. [facility] Medical History GERD without esophagitis Vitamin B [address] History of colon cancer Small bowel obstruction Coagulase negative Staphylococcus bacteremia Colon cancer Syncope Benign essential hypertension Overweight (BMI 25.0-29.9) Vitamin D deficiency Diabetes mellitus Pure hypercholesterolemia Surgical History Hx of surgical procedure (~08/02/23) History of colonoscopy (~2022) Status post laparotomy History of surgery Status post colon resection (~04/29/22) History of colonoscopy Family History Father Diabetes Hypertension Mother Diabetes Hypertension Mother Colon cancer Unknown Colon cancer Daughter Breast cancer Social History Household Members: Spouse Housing: House Are you a primary post acute care nurse to a significant other at home: No Do you presently have visiting nurse or other home services: No Unable to assess alcohol history related to: Unknown Alcohol intake: never Patient Tobacco Use Status: Never used Tobacco e-Cigarette/Vaping Use: Never Used Second Hand Smoke Exposure: No Advance Directives Date on File: 12/24/21 service: No Current occupational status: retired Cognitive needs: No Hearing needs: No Vision needs: Yes Physical Exam Vital Signs: Last Vital Signs Pulse 67 04/11/24 08:15 BP 132/78 04/11/24 08:15 Pulse Ox 96 04/11/24 08:15 Oxygen Delivery Method Room Air 04/11/24 08:15 BMI result Body Mass Index 29.7 Const General: cooperative, comfortable and no acute distress Nutritional Appearance: average body habitus Orientation/consciousness: patient oriented x3 Eyes Pupils: Equal, round and reactive pupils present Neck Neck: Yes full ROM and Yes supple Resp Effort & Inspection: normal respiratory effort and able to speak in complete sentences Neuro General: patient oriented x3 and moves all extremities Cranial nerves: Yes CN's II-XII intact bilaterally, Yes Facial sensation intact/muscles of mastication intact, Yes Equal, round and reactive pupils p resent, Yes Normal accommodation reflex present, Yes Bilaterally intact EOM present, Yes Nystagmus not present, Yes Normal facial strength present, Yes Midline tongue present, Yes Ability to bilaterally rotate head present and Yes Ability to bilaterally elevate shoulders present Cognition (Neuro): normal cognition Gait exam (Neuro): Normal gait present and Other gait observations present Motor exam (neuro): 5/5 motor strength present throughout and Normal motor muscle tone present throughout Sensory Exam: Abnormal lower extremity sensory exam (Feet bilaterally - numbness) Deep tendon reflexes (DTR's): Right triceps reflex intensity grade: 2+, Left triceps reflex intensity grade: 2+, Rt Biceps (C5, C6): 2+, Left biceps reflex intensity grade: 2+, Right brachioradialis reflex intensity grade: 2+, Left brachioradialis reflex intensity grade: 2+, Right patellar reflex intensity grade: 2+ and Left patellar reflex intensity grade: 2+ Coordination: [id number] test normal Assessment & Plan Assessment & Plan (1) Loud snoring: Code(s): R06.83 - Snoring Category: Medical (2) Excessive daytime sleepiness: Code(s): G47.19 - Other hypersomnia Category: Medical (3) Neuropathy of both feet: Code(s): G57.93 - Unspecified mononeuropathy of bilateral lower limbs Category: Medical Plan Sleep Evaluation: Will send him for HST to assess for sleep apnea. Numbness in feet bilaterally: Will send him for PT to assess strength, balance, and treat. Will follow up in 3 months post Home Sleep Test. Orders: Orders RT home sleep study Today G47.19 - Other hypersomnia, R06.83 - Snoring PT Evaluation and Treatment Today G57.93 - Unspecified mononeuropathy of bilateral lower limbs Coding Level of Care Code New Pt Level 3 (60498) Diagnoses Loud snoring R06.83 Excessive daytime sleepiness G47.19 Neuropathy of both feet G57.93 Time Spent (min) 30 Comment Evaluation Sleep Questionnaire Difficulty falling asleep: Yes Difficulty staying asleep?: Yes Number of arousals: 2-3x Snoring: Yes (loudly) Witnessed apneas: Yes Gasping arousals: Yes Nocturia: No GERD: Yes Vivid dreams: Yes Acting out dreams: No Abnormal behavior in sleep: Yes (laughing ) Abnormal movements in sleep: Yes (Periodic leg movements ) Morning headaches: No Excessive daytime sleepiness: Yes Daytime naps: No Restless legs: Yes Hallucinations: No Sleep paralysis: No Drop attacks: No Sleep Study: No CPAP: No
== END 2024-04-11 08:56 | disposition home or self-care (01) ==
PROVIDERS: Absent Provider Nurse Practitioner Family; PCP Internal Medicine; Visit Provider Nurse Practitioner Family
DX: R06.83 Snoring (principal); G47.19 Other hypersomnia; G57.93 Unspecified mononeuropathy of bilateral lower limbs
CPT/HCPCS: 99203

== ENCOUNTER → 2024-04-11 08:14 | Outpatient (BNVA) | payer MEDICARE, SELFPAY | PROVIDERS: Absent Provider Nurse Practitioner Family; PCP Internal Medicine; Visit Provider Nurse Practitioner Family | DX: G47.19 Other hypersomnia (principal); R06.83 Snoring; G57.93 Unspecified mononeuropathy of bilateral lower limbs | CPT/HCPCS: 99202 ==

== ENCOUNTER 2024-05-01 06:22 | Outpatient (REF) | payer MEDICARE, SELFPAY ==
[2024-05-01 06:36] LABS: MANUAL DIFF FLAG NO
[2024-05-01 07:24] LABS: Basophils Absolute Auto 0.1 X10*3/uL (0.0-0.2); Basophils Percent Auto 0.8 % (0-2); Eosinophils Absolute Auto 0.4 X10*3/uL (0.0-0.4); Eosinophils Percent Auto 5.3 % (0-4); Hematocrit 41.9 % (42.0-52.0); Hemoglobin 14.2 g/dl (14.0-18.0); Imm Gran Abs Auto 0.02 X10*3/uL (0.00-0.03); Imm Gran Pct Auto 0.3 % (0.0-0.4); Lymphocytes Absolute Auto 1.6 X10*3/uL (1.2-4.9); Lymphocytes Percent Auto 20.7 % (20-40); Mean Corpuscular HGB Conc 33.9 g/dl (31.0-36.0); Mean Corpuscular Hemoglobin 27.7 pg (27.0-33.0); Mean Corpuscular Volume 81.7 fL (80.0-98.0); Mean Platelet Volume 10.7 fL (9.4-12.4); Monocytes Absolute Auto 0.5 X10*3/uL (0.1-1.2); Monocytes Percent Auto 6.7 % (2-11); Neutrophils Absolute Auto 5.2 x10*3/uL (2.0-8.3); Neutrophils Percent Auto 66.2 % (45-73); Platelet Count 152 X10*3/uL (160-400); Red Blood Count 5.13 X10*6/uL (4.60-5.80); Red Cell Distribution Width 13.1 % (11.0-16.0); White Blood Count 7.9 X10*3/uL (4.8-10.8)
[2024-05-01 07:27] LABS: Appearance Urine Clear; Color Urine Yellow; Glucose Urine UA Negative (Negative); Leukocyte Esterase Urine Negative (Negative); Nitrite Urine Negative (Negative); PH 5.5 (5.0-9.0); Urine Blood Negative (Negative); Urine Ketones Negative (Negative); Urine Protein Trace mg/dL (Neg-Trace)
[2024-05-01 08:15] LABS: Anion Gap 12 (12-20); Blood Urea Nitrogen 26 mg/dL (9-16); Calcium 9.3 mg/dL (8.4-10.2); Carbon Dioxide 24 mmol/L (22-29); Chloride 110 mmol/L (96-108); Estimated Glomerular Filt Rate 52; Glucose Random 152 mg/dL (60-115); Potassium 4.1 mmol/L (3.3-5.1); Sodium 142 mmol/L (135-145)
[2024-05-01 08:21] LABS: Creatinine Urine 124.61 mg/dL; Total Protein Urine Random 15 mg/dL (<12)
== END 2024-05-01 06:23 | disposition home or self-care (01) ==
LOC: HO.LAB 06:22
PROVIDERS: PCP Internal Medicine; Visit Provider Internal Medicine Hypertension Specialist
DX: N18.30 Chronic kidney disease, stage 3 unspecified (principal); N18.32 Chronic kidney disease, stage 3b
CPT/HCPCS: 36415; 80048; 81003; 82570; 84156; 85025

== ENCOUNTER 2024-05-03 07:38 | Outpatient (RCR) | payer MEDICARE, SELFPAY ==
--- NOTE | 2024-05-03 08:55 | MHC.PT.EP ---
[facility] [place] Office [place] Office [place] Office [address] Romeo Stearns [address] [phone] F: [phone] F: [phone] F: [phone] F: [phone] Physical Therapy Plan of Care Date of Evaluation: 05/03/24 Date of Surgery: Diagnosis: unspecified mononeuropathy of bilateral lower limbs Assessment: 73 y/o male referred to PT with mononeuropathy of feet. Pt reports B n/t of B toe digits 1-5 following chemotherapy for colon CA one year ago. It has slightly improved. At this time, he reports able to ambulate, perform chores and hobbies but his toes will feel numb. Examination shows normal hip/ knee/ ankle ROM, good B LE strength, impaired monofilament testing B digits 1-5 but intact sensation to light touch, good static balance, and good dynamic balance with FGA 27/30. Educated pt on neuropathy, checking shoes before wearing them, checking feet at end of the day for cuts, balance system, and safety. Distributed HEP of balance exercises wt review of safety performing the in corner with chair in front of him. At this time, PT not indicated. Pt in agreement Frequency and Duration: The patient will be seen Short Term Goals: Precipitation Equipment Tender Goals: D/c to I HEP - PT not indicated Treatment Plan: Modalities to reduce pain, spasms and effusion. Manual therapy to restore motion and function. Therapeutic exercise to improve strength and flexibility. Neuromuscular re-education for posture and balance. Therapeutic activities to return to functional activities of daily living. Electronically signed by: Stephanie Maurice PT Please sign and return to therapist. Thank you for your referral.
--- NOTE | 2024-05-03 08:56 | MHC.PT.DC ---
[facility] [place] Office [place] Office [address] Romeo Stearns [address] [phone] F: [phone] F: [phone] F: [phone] F: [phone] Physical Therapy Discharge Report Diagnosis: unspecified mononeuropathy of bilateral lower limbs Date of Surgery: Date of Evaluation: 05/03/24 Date of Discharge: 05/03/24 Treatments to Date: 1 Cancellations to Date: 0 No Shows to Date: 0 Discharge Status: Discharge Summary: 73 y/o male referred to PT with mononeuropathy of feet. Pt reports B n/t of B toe digits 1-5 following chemotherapy for colon CA one year ago. It has slightly improved. At this time, he reports able to ambulate, perform chores and hobbies but his toes will feel numb. Examination shows normal hip/ knee/ ankle ROM, good B LE strength, impaired monofilament testing B digits 1-5 but intact sensation to light touch, good static balance, and good dynamic balance with FGA 27/30. Educated pt on neuropathy, checking shoes before wearing them, checking feet at end of the day for cuts, balance system, and safety. Distributed HEP of balance exercises [facility] review of safety performing the in corner with chair in front of him. At this time, PT not indicated. Pt in agreement Electronically signed by: Stephanie Maurice PT Please sign and return to therapist. Thank you for your referral.
== END 2024-05-03 08:56 | disposition home or self-care (01) ==
LOC: HO.PT 07:38
PROVIDERS: PCP Internal Medicine; Visit Provider Physician Assistant Medical
DX: G57.93 Unspecified mononeuropathy of bilateral lower limbs (principal)
CPT/HCPCS: 97112; 97161

== ENCOUNTER 2024-05-07 10:49 | Outpatient (AMB) | payer MEDICARE, SELFPAY ==
[2024-05-07 10:51] VITALS: BP 160/72; PULSE 75; O2SAT 98
--- NOTE | 2024-05-07 10:51 | HO.NEPHOV ---
Vital Signs 05/07/24 10:51 05/07/24 11:11 Height 5 ft 4 in BP 160/72 H 132/80 Blood Pressure Location Lt brachial Lt brachial Position Sitting Sitting Pulse 75 Pulse Source Pulse Oximeter Pulse Oximetry (%) 98 Oxygen Delivery Method Room Air Intake Visit Reasons: 4 mon follow up Lab Support Technician Required: No Accompanied by: Self / Same As Patient Allergies No Known Allergies [No Known Allergies*] Allergy (Verified 05/07/24 10:53) Medication List - Last Reconciled 05/07/24 by Nato Lerner MD amlodipine 5 mg PO DAILY 90 days atorvastatin 10 mg PO BEDTIME 90 days [BD Ultra Fine [place] Pen Needle 32 G x Use as directed up to 4 times a day] blood sugar diagnostic (FreeStyle Test strips) As directed blood sugar diagnostic (FreeStyle Lite Strips) Test four times a day or as directed. blood-glucose meter (FreeStyle Lite Meter kit) As Directed blood-glucose meter,continuous (FreeStyle Keily 3 [place]) As directed blood-glucose sensor (FreeStyle Keily 3 Plus Sensor device) As directed cetirizine 10 mg PO DAILY cholecalciferol (vitamin D3) 25 mcg PO DAILY cyanocobalamin (vitamin B-12) (Vitamin B-12) 50 mcg PO DAILY flash glucose scanning reader (FreeStyle Keily 2 [place]) As directed flash glucose sensor (FreeStyle Keily 2 Sensor kit) APPLY ONCE EVERY 14 DAYS DIRECTED insulin lispro (Humalog KwikPen (U-100) Insulin) subcutaneously 3 times a day; Use up to 20 units before meals when on dexamethasone [iron-vitamins 300 mg PO DAILY] lancets (FreeStyle Lancets) Test four times a day or as directed. magnesium oxide 400 mg PO DAILY 90 days pantoprazole 40 mg PO DAILY@0630 pen needle, diabetic Use four times a day or as directed. 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 s/p Chemo He had MARILYNN in May 2022 with creatinine of 10 and K of 7. MARILYNN resolved with hydration He has completed chemotherapy. Creatinine is stable at 1.2 08/01/2023. Scheduled for reversal of colostomy tomorrow. Apparently he is cancer free at this time 01/20/2024. Serum underwent reversal of colostomy in July. He is doing very well. No new complaints. [facility] Medical History GERD without esophagitis Vitamin B [address] History of colon cancer Small bowel obstruction Coagulase negative Staphylococcus bacteremia Colon cancer Syncope Benign essential hypertension Overweight (BMI 25.0-29.9) Vitamin D deficiency Diabetes mellitus Pure hypercholesterolemia Surgical History Hx of surgical procedure (~08/02/23) History of colonoscopy (~2022) Status post laparotomy History of surgery Status post colon resection (~04/29/22) History of colonoscopy Family History Father Diabetes Hypertension Mother Diabetes Hypertension Mother Colon cancer Unknown Colon cancer Daughter Breast cancer Social History Household Members: Spouse Housing: House Are you a primary lawn care specialist to a significant other at home: No Do you presently have visiting nurse or other home services: No Unable to assess alcohol history related to: Unknown Alcohol intake: never Patient Tobacco Use Status: Never used Tobacco e-Cigarette/Vaping Use: Never Used Second Hand Smoke Exposure: No Advance Directives Date on File: 12/24/21 service: No Current occupational status: retired Cognitive needs: No Hearing needs: No Vision needs: Yes Physical Exam Vital Signs: Last Vital Signs Pulse 75 05/07/24 10:51 BP 160/72 H 05/07/24 10:51 Pulse Ox 98 05/07/24 10:51 Oxygen Delivery Method Room Air 05/07/24 10:51 Comfortable Neck supple no JVD. Lungs entry equal no rales. Heart S1-S2 heard no gallop or rub. Abdomen soft nontender. Neuro alert awake oriented. No asterixis. Extremities no edema. Results Reviewed Nephrology Results: Hgb 14.2 g/dl (14.0-18.0) 05/01/24 WBC 7.9 X10*3/uL (4.8-10.8) 05/01/24 Plt Count 152 X10*3/uL (160-400) L 05/01/24 Sodium 142 mmol/L (135-145) 05/01/24 Potassium 4.1 mmol/L (3.3-5.1) 05/01/24 Chloride 110 mmol/L (96-108) H 05/01/24 Carbon Dioxide 24 mmol/L (22-29) 05/01/24 BUN 26 mg/dL (9-16) H 05/01/24 Creatinine 1.35 mg/dL (0.5-1.4) 05/01/24 Calcium 9.3 mg/dL (8.4-10.2) 05/01/24 Urine Protein Trace mg/dL (Neg-Trace) 05/01/24 Urine Creatinine 124.61 mg/dL 05/01/24 Assessment & Plan Assessment & Plan (1) CKD (chronic kidney disease) stage 3, GFR 30-59 ml/min: Code(s): N18.30 - Chronic kidney disease, stage 3 unspecified Category: Medical Qualifiers: Chronic kidney disease stage 3 subtype: stage 3a (GFR 45-59) Qualified Code(s): N18.31 - Chronic kidney disease, stage 3a Plan h/o MARILYNN superimposed on CKD MARILYNN has resolved Creatinine bumped up again in 10/13/2023. Repeat Cr is 1.35 Probably baseline Encouraged to increase PO fluid intake Avoid nephrotoxins including NSAIDS HTN Initial BP was elevated REpeat was normal Watch BP at home Stay on low salt diet Ca Colon s/p Chemo Follow with Orders: Orders Basic Metabolic Panel 4 Months N18.31 - Chronic kidney disease, stage 3a Coding Level of Care Code Est Pt Level 4 (26070) Diagnoses Stage 3a chronic kidney disease N18.31 Chronic kidney disease stage 3 subtype: stage 3a (GFR 45-59)
[2024-05-07 11:11] VITALS: BP 132/80
== END 2024-05-07 15:17 | disposition home or self-care (01) ==
PROVIDERS: PCP Internal Medicine; Visit Provider Internal Medicine Hypertension Specialist
DX: N18.31 Chronic kidney disease, stage 3a (principal)
CPT/HCPCS: 99214

== ENCOUNTER → 2024-05-07 10:49 | Outpatient (BNVA) | payer MEDICARE, SELFPAY | PROVIDERS: PCP Internal Medicine; Visit Provider Internal Medicine Hypertension Specialist | DX: I12.9 Hypertensive chronic kidney disease with stage 1 through stage 4 chronic kidney disease, or unspecified chronic kidney disease (principal); N18.31 Chronic kidney disease, stage 3a | CPT/HCPCS: 99212 ==

== ENCOUNTER 2024-05-08 13:54 | Outpatient (REF) | payer MEDICARE, SELFPAY ==
--- NOTE | ~2024-05-08 | XR_ITS ---
EXAMINATION: XR CHEST CLINICAL INFORMATION: Surveillance for colon cancer COMPARISON: CT chest 05/12/2023. TECHNIQUE: 2 views of the chest were obtained. FINDINGS: Right chest port is in place, with tip terminating in the SVC. This is well positioned. The cardiac, hilar, and mediastinal contours are normal. The lungs are clear bilaterally. There is no pneumothorax or pleural effusion. There is no focal osseous or soft tissue abnormality. XR/XR chest 2V IMPRESSION: 1. Well-positioned chest port. 2. No active pulmonary disease. Electronically signed by: Dionisio Carrasco MD 05/08/2024 02:45 PM [facility]
== END 2024-05-08 13:55 | disposition home or self-care (01) ==
LOC: HO.XRAY 13:54
PROVIDERS: PCP Internal Medicine; Visit Provider Internal Medicine
DX: C18.9 Malignant neoplasm of colon, unspecified (principal)
CPT/HCPCS: 71046

== ENCOUNTER → 2024-05-08 14:00 | Outpatient (BNV) | payer MEDICARE, SELFPAY | PROVIDERS: PCP Internal Medicine; Visit Provider Radiology Diagnostic Radiology | DX: Z12.11 Encounter for screening for malignant neoplasm of colon (principal) | CPT/HCPCS: 71046 ==

== ENCOUNTER → 2024-05-23 14:39 | Outpatient (REF) | payer MEDICARE, SELFPAY ==
--- OUTSIDE RECORDS SUMMARY | 2024-05-23 16:54 | XMS_ITS | Clinical Summary ---
Author Organization [facility] Facility Address [address] [place] [id number] Care Team Providers Care Art Therapist Name Role Phone Unavailable Primary Care Provider Unavailabl e Allergies No known active allergies Medications Alcohol Swabs 70 % pads USE 1 PAD TOPICALLY 4 TIMES A DAY 3 Active amLODIPine (NORVASC) 2.5 MG tablet Take 2.5 mg by mouth 1 (one) time each day 3 Active atorvastatin (LIPITOR) 10 MG tablet Take 10 mg by mouth at bed time 3 Active Blood Glucose Monitoring Suppl (FreeStyle Lite) w/Device kit USE DIRECTED 3 Active FREESTYLE LITE test strip USE ONCE DAILY DIRECTED 3 Active HumaLOG KWIKPEN 100 UNIT/ML solution pen-injector INJECT UNDER THE SKIN DIRECTED PER SLIDING SCALE FOUR TIMES DAILY BEFORE MEAL/BEDTIME 3 Active BD Pen Needle Floridalma 2nd Gen 32G X 4 MM misc USE FOUR TIMES DAILY OR DIRECTED 3 Active Lancets (freestyle) lancets USE FOUR TIMES DAILY OR DIRECTED 3 Active Cholecalciferol (Vitamin D3) 25 MCG tablet Take by mouth Activ e Multiple Vitamins-Minera ls (multivitamin with minerals) tablet Take 1 tablet by mouth 1 (one) time each day Active pantoprazole (PROTONIX) 40 MG EC tablet Take 40 mg by mouth 1 (one) time each day before breakfast Do not crush, chew, or split. Active Cetirizine HCl 10 MG capsule Take by mouth Ac tive insulin regular (HumuLIN,NovoLI N) 100 UNIT/ML injection Inject under the skin 3 (three) times a day before meals Active Active Problems No known active problems Immunizations Name Administration Dates Next Due Pfizer SARS-COV-2 08/05/2020,07/15/2020 Family History Medical History Relation Comments Cancer Daughter Diabetes Father Cancer Mother Diabetes Mother Hypertension Mother Relation Status Comments Daughter Father Mother Social History Tobacco Use Types Packs/Day Years Used Date Smoking Tobacco: Never Smokeless Tobacco: Never Tobacco Cessation:Counseling Given: Not Answered Alcohol Use Standard Drinks/Week Comments Not Currently 0 (1 standard drink = 0.6 oz pur e alcohol) Sex and Gender Information Value Date Recorded Sex Assigned at Not on file Legal Sex Male 9:03 AM EST Gender Identity Not on file Sexual Orientation Not on file Last Filed Vital Signs Vital Sign Reading Time Taken Comments Blood Pressure 130/72 10/18/2022 2:36 PM EDT Pulse 78 10/18/2022 2:36 PM EDT Temperature - - Respiratory Rate - - Oxygen Saturation 97% 10/18/2022 2:36 PM EDT Inhaled Oxygen Concentration - - Weight 71.3 kg (157 lb 3.2 oz) 10/18/2022 2:36 P M EDT Height 162.6 cm (5' 4 ) 06/14/2022 1:08 PM EST Body Mass Index 26.98 06/14/2022 1:08 PM EST Plan of Treatment Health Maintenance Due Date Last Done Comments Pneumococcal Vaccine: 65+ Ye ars (1 of 2 - PCV) 1958 Colorectal Cancer Screening: Annual FOBT 2001 Colorectal Cancer Screening: Colonoscopy 2001 Colorectal Cancer Screening: Sigmoidoscopy 2001 Influenza Vaccine (#1) 2023 Hepatitis B Vaccine Aged Out No longe r eligible based on patient's age to complete this topic Insurance MEDICARE [facility] MEDICARE [facility]
== END ==
LOC: HO.SL 14:39
PROVIDERS: PCP Internal Medicine; Visit Provider Physician Assistant Medical
DX: G47.33 Obstructive sleep apnea (adult) (pediatric) (principal); G47.19 Other hypersomnia; R06.83 Snoring; R40.0 Somnolence
CPT/HCPCS: 95806

== ENCOUNTER 2024-06-20 06:09 | Outpatient (REF) | payer MEDICARE, SELFPAY ==
--- OUTSIDE RECORDS SUMMARY | 2024-06-20 06:12 | XMS_ITS | Clinical Summary ---
Author Organization [facility] Facility Address [address] [place] [id number] Care Team Providers Care Architect Intern Name Role Phone Unavailable Primary Care Provider [...] age to complete this topic Insurance MEDICARE [facility] MEDICARE [facility]
[2024-06-20 06:33] LABS: MANUAL DIFF FLAG NO
[2024-06-20 07:28] LABS: Basophils Absolute Auto 0.1 X10*3/uL (0.0-0.2); Basophils Percent Auto 0.7 % (0-2); Eosinophils Absolute Auto 0.4 X10*3/uL (0.0-0.4); Eosinophils Percent Auto 4.9 % (0-4); Hemoglobin 13.7 g/dl (14.0-18.0); Imm Gran Abs Auto 0.02 X10*3/uL (0.00-0.03); Imm Gran Pct Auto 0.3 % (0.0-0.4); Lymphocytes Absolute Auto 1.5 X10*3/uL (1.2-4.9); Lymphocytes Percent Auto 20.6 % (20-40); Mean Corpuscular HGB Conc 33.4 g/dl (31.0-36.0); Mean Corpuscular Hemoglobin 27.5 pg (27.0-33.0); Mean Corpuscular Volume 82.2 fL (80.0-98.0); Mean Platelet Volume 10.6 fL (9.4-12.4); Monocytes Absolute Auto 0.5 X10*3/uL (0.1-1.2); Neutrophils Absolute Auto 4.9 x10*3/uL (2.0-8.3); Neutrophils Percent Auto 66.5 % (45-73); Platelet Count 152 X10*3/uL (160-400); Red Blood Count 4.99 X10*6/uL (4.60-5.80); Red Cell Distribution Width 13.4 % (11.0-16.0); White Blood Count 7.3 X10*3/uL (4.8-10.8)
[2024-06-20 07:30] LABS: Estimated Average Glucose 134 mg/dL; Hemoglobin A1c % 6.3 % (<6.0); Total Hemoglobin (HGBA1C) 3648.7588 umol/L
[2024-06-20 08:03] LABS: Appearance Urine Clear; Color Urine Yellow; Creatinine Urine 160.08 mg/dL; Glucose Urine UA Negative (Negative); Leukocyte Esterase Urine Negative (Negative); Microalbum/Creatinine Ratio Ur 45.6 ug/mg cr (<30); Nitrite Urine Negative (Negative); PH 5.5 (5.0-9.0); Urine Blood Negative (Negative); Urine Ketones Negative (Negative); Urine Protein Trace mg/dL (Neg-Trace)
[2024-06-20 08:05] LABS: Alanine Aminotransferase 22 U/L (0-40); Albumin Level 4.2 g/dL (3.5-5.0); Alkaline Phosphatase 88 U/L (39-117); Anion Gap 11 (12-20); Aspartate Amino Transferase 23 U/L (5-37); Bilirubin Total 0.4 mg/dL (0.0-1.0); Blood Urea Nitrogen 19 mg/dL (9-16); Carbon Dioxide 25 mmol/L (22-29); Chloride 110 mmol/L (96-108); Cholesterol 142 mg/dL (<200); Estimated Glomerular Filt Rate 59; Glucose Fasting 153 mg/dL (60-99); HDL Cholesterol 39 mg/dL (>40); LDL Cholesterol Calculated 90 mg/dL (<100); Potassium 4.4 mmol/L (3.3-5.1); Sodium 142 mmol/L (135-145); Total Protein 6.9 g/dL (6.5-8.0); Triglycerides 67 mg/dL (<150)
[2024-06-20 08:20] LABS: TSH reflex Free T4 2.07 uIU/mL (0.32-4.0)
== END 2024-06-20 06:10 | disposition home or self-care (01) ==
LOC: HO.LAB 06:09
PROVIDERS: PCP Internal Medicine; Visit Provider Internal Medicine
DX: Z13.89 Encounter for screening for other disorder (principal)
CPT/HCPCS: 36415; 80053; 80061; 81003; 82043; 82306; 82570; 83036; 84443; 85025

== ENCOUNTER → 2024-06-20 20:30 | Outpatient (REF) | payer MEDICARE, SELFPAY ==
--- OUTSIDE RECORDS SUMMARY | 2024-06-20 22:55 | XMS_ITS | Clinical Summary ---
Author Organization [facility] Facility Address [address] [place] [id number] Care Team Providers Care Loom Fixer Apprentice Name Role Phone Unavailable Primary Care Provider [...] to complete this topic Insurance MEDICARE [facility] MEDICARE [facility]
== END ==
LOC: HO.SL 20:30
PROVIDERS: PCP Internal Medicine; Visit Provider Physician Assistant Medical
DX: G47.33 Obstructive sleep apnea (adult) (pediatric) (principal); D64.9 Anemia, unspecified; E11.9 Type 2 diabetes mellitus without complications; E78.00 Pure hypercholesterolemia, unspecified; R30.0 Dysuria; E55.9 Vitamin D deficiency, unspecified
CPT/HCPCS: 36415; 80053; 80061; 81003; 82043; 82306; 82570; 83036; 84443; 85025; 95811

== ENCOUNTER 2024-06-25 16:40 | Outpatient (AMB) | payer MEDICARE, SELFPAY ==
[2024-06-25 16:41] VITALS: BP 130/80; PULSE 72; O2SAT 98; BMI 29.3
--- NOTE | 2024-06-25 16:41 | A.OFFPC_ITS ---
Vital Signs 06/25/24 16:41 Height 5 ft 4 in Weight 171 lb BMI 29.3 BP 130/80 Blood Pressure Location Lt brachial Position Sitting Pulse 72 Pulse Source Pulse Oximeter Pulse Oximetry (%) 98 Oxygen Delivery Method Room Air Intake Visit Reasons: 4 month f/u Drawer Maker Required: No Accompanied by: Self / Same As Patient Allergies No Known Allergies [No Known Allergies*] Allergy (Verified 06/25/24 17:26) Medication List - Last Reconciled 06/25/24 by Bimal Lepe MD amlodipine 5 mg PO DAILY 90 days atorvastatin 10 mg PO BEDTIME 90 days [BD Ultra Fine Floridalma Pen Needle 32 G x Use as directed up to 4 times a day] blood sugar diagnostic (FreeStyle Test strips) As directed blood sugar diagnostic (FreeStyle Lite Strips) Test four times a day or as directed. blood-glucose meter (FreeStyle Lite Meter kit) As Directed blood-glucose meter,continuous (FreeStyle Keily 3 Drury) As directed blood-glucose sensor (FreeStyle Keily 3 Plus Sensor device) As directed cetirizine 10 mg PO DAILY cholecalciferol (vitamin D3) 25 mcg PO DAILY cyanocobalamin (vitamin B-12) (Vitamin B-12) 50 mcg PO DAILY flash glucose scanning reader (FreeStyle Keily 2 Drury) As directed flash glucose sensor (FreeStyle Keily 2 Sensor kit) APPLY ONCE EVERY 14 DAYS DIRECTED insulin lispro (Humalog KwikPen (U-100) Insulin) subcutaneously 3 times a day; Use up to 20 units before meals when on dexamethasone [iron-vitamins 300 mg PO DAILY] lancets (FreeStyle Lancets) Test four times a day or as directed. magnesium oxide 400 mg PO DAILY 90 days pantoprazole 40 mg PO DAILY@0630 pen needle, diabetic Use four times a day or as directed. Tobacco use date assessed: 06/25/24 Fall risk assessment: No Falls in past year Last assessed Fall Risk: 06/25/24 Dental Screening Dental Screen Date: 06/25/24 Did you have a dental visit in the last 12 months?: Yes Did you have a dental problem in the last 6 months where you did not have access to dental care?: No Was dental information given to patient?: Patient has dentist HPI 4 month f/u HPI Details Patient comes in today for his follow-up visit States that he feels okay but has been noticing elevated blood sugar readings in the morning often over the past few weeks Notes that his average fasting blood sugar in the morning has been consistently over 130 to 140 mg/dl and sometimes go up to over 160 mg/dl recently and he is wondering if there is anything he can take at night to correct this He is currently only taking Humalog with his meals 3 times a day, dosed per sliding scale, for his diabetes He denies any headaches or dizziness Denies any chest pains, no shortness of breath No nausea/vomiting, no abdominal pain No change in bowel habits noted He had his follow-up labs done a few days ago - to discuss his results [facility] Medical History (Updated 06/26/24 @ 02:26 by Bimal Lepe MD) Obstructive sleep apnea GERD without esophagitis Vitamin B [address] History of colon cancer Small bowel obstruction Coagulase negative Staphylococcus bacteremia Colon cancer Syncope Benign essential hypertension Overweight (BMI 25.0-29.9) Vitamin D deficiency Diabetes mellitus Pure hypercholesterolemia Surgical History Hx of surgical procedure (~08/02/23) History of colonoscopy (~2022) Status post laparotomy History of surgery Status post colon resection (~04/29/22) History of colonoscopy Family History Father Diabetes Hypertension Mother Diabetes Hypertension Mother Colon cancer Unknown Colon cancer Daughter Breast cancer Social History Household Members: Spouse Housing: House Are you a primary personal care home administrator to a significant other at home: No Do you presently have visiting nurse or other home services: No Unable to assess alcohol history related to: Unknown Alcohol intake: never Patient Tobacco Use Status: Never used Tobacco e-Cigarette/Vaping Use: Never Used Second Hand Smoke Exposure: No Advance Directives Date on File: 12/24/21 service: No Current occupational status: retired Cognitive needs: No Hearing needs: No Vision needs: Yes Questionnaire PHQ-9 Over the last 2 weeks, how often have you been bothered by any of the following problems? 1. Little interest or pleasure in doing things: not at all 2. Feeling down, depressed, or hopeless: not at all 3. Trouble falling or staying asleep, or sleeping too much: not at all 4. Feeling tired or having little energy: not at all 5. Poor appetite or overeating: not at all 6. Feeling bad about yourself - or that you are a failure or have let yourself or your family down: not at all 7. Trouble concentrating on things, such as reading the newspaper or watching television: not at all 8. Moving or speaking so slowly that other people could have noticed. Or the opposite - being so fidgety or restless that you have been moving around a lot more than usual: not at all 9. Thoughts that you would be better off or of hurting yourself in some way: not at all Total score: 0 Depression Screening Interpretation: Negative Depression Screening Done: Yes 18088 - PHQ-9 Billing: Yes Source: Developed by Drs. Cooper Beck, Gertrude Vega, Santo Tejada and colleagues, with an educational otto from [employer]. Thrive Questionnaire Date Thrive assessed: 06/25/24 I am a: Patient What is your living situation today?: I have a steady place to live Within the past 12 months, did the food you bought not last and you didn't have the money to get more?: Never true Within the past 12 months, did you worry whether your food would run out before you got money to buy more?: Never true Do you have trouble paying for medicines?: No Do you have trouble getting transportation to medical appointments?: No Do you have trouble paying your heating and electricity bill?: No Do you have trouble taking care of your child, family member or friend?: No Do you have trouble with day-to-day activities such as bathing, preparing meals, shopping, managing finances, etc.?: No Are you currently unemployed and looking for a job?: No Are you interested in more education?: No Please select the resources that you would like help with: None Currently or been in a relationship where the following occur: No concerns reported THRIVE Score: 0 AUDIT C Alcohol Use Questionnaire (AUDIT-C) 1. How often do you have a drink containing alcohol?: Never 3. How often do you have six or more drinks on one occasion?: Never Total Score: 0 Score Reviewed/Action Taken: Yes AALIYAH-7 AMB Questionnaire AALIYAH-7 Date AALIYAH - 7 assessed: 06/25/24 Feeling nervous, anxious, or on edge: 0 = Not at all Not being able to stop or control worryin = Not at all Worrying too much about different things: 0 = Not at all Trouble relaxin = Not at all Being so restless that it is hard to sit still: 0 = Not at all Becoming easily annoyed or irritable: 0 = Not at all Feeling afraid as if something awful might happen: 0 = Not at all Total AALIYAH-7 score (0-4 normal; 5-9 mild; 10-14 moderate; 15-21 severe): 0 Source: Developed by Drs. Cooper Beck, Gertrude Vega, Santo Tejada and colleagues, with an educational otto from [employer]. Review of Systems Const Denies chills, Denies fatigue, Denies fever(s) and Denies headache(s) ENT Denies dysphagia, Denies dizziness, Denies otalgia, Denies headache(s), Denies neck pain, Denies odynophagia and Denies sore throat Card Denies chest pain, Denies palpitations and Denies dyspnea Resp Denies chest congestion, Denies cough and Denies dyspnea GI Denies abdominal pain, Denies constipation, Denies dysphagia, Denies heartburn, Denies diarrhea, Denies nausea, Denies odynophagia and Denies vomiting Denies dysuria, Denies nocturia and Denies urinary frequency Musc Denies back pain and Denies neck pain Skin/Breast Denies rash Neuro Denies dizziness and Denies headache(s) Endo Denies fatigue and Denies palpitations Physical exam (Primary Care) Vital Signs: Last Vital Signs Pulse 72 06/25/24 16:41 BP 130/80 06/25/24 16:41 Pulse Ox 98 06/25/24 16:41 Oxygen Delivery Method Room Air 06/25/24 16:41 BMI result Body Mass Index 29.3 Tobacco/Smoking Status: Tobacco use Status Tobacco use date assessed 06/25/24 06/25/24 16:51 Patient Tobacco Use Status Never used Tobacco 06/25/24 16:51 e-Cigarette/Vaping Use Never Used 06/25/24 16:51 PHQ-9: PHQ-9 Score PHQ-9: Total score 0 06/25/24 17:29 Depression Screening Interpretation: Negative Thrive Assessment: Date of Thrive Assessment Date Thrive assessed 06/25/24 06/25/24 16:51 Currently or been in a relationship where the following occur: No concerns reported Const General: no acute distress and alert HENMT Ears: TM's normal bilaterally and EAC's normal Throat: Yes posterior oropharynx normal and Yes tonsils normal Neck Neck: Yes supple and No lymphadenopathy Thyroid: Thyroid normal Resp Auscultation: clear to auscultation bilaterally, no rales and no wheezes Cardio Rate: regular rate Rhythm: regular rhythm Heart sounds: no murmurs GI Palpation (GI): Soft to palpation and nontender Auscultation: normal bowel sounds General: Yes no CVA tenderness Back/Spine/Pelvis Back: no CVA tenderness Thoracic/Lumbar Spine: No lumbar spinal tenderness Skin Rashes: no rashes Extrem General: Yes no clubbing, cyanosis or edema Results Reviewed Results Reviewed: Laboratory Tests 02/29/24 06/20/24 06/20/24 06:27 06:29 06:33 WBC 7.3 Hgb 13.7 L Hct 41.0 L Plt Count 152 L Sodium 143 142 Potassium 4.4 Creatinine 1.22 Estimated GFR 59 Fasting Glucose 153 H Hemoglobin A1c % 6.3 H Calcium 9.0 AST 23 ALT 22 Triglycerides 67 Cholesterol 142 LDL Cholesterol, Calc 90 HDL Cholesterol 39 L 25-OH Vitamin D Total 39.0 TSH 2.07 Ur Specific [place] 1.020 Urine Protein Trace Urine Glucose (UA) Negative Urine Blood Negative Urine Nitrite Negative Ur Leukocyte Esterase Negative Microalb/Creat Ratio 45.6 H Coding Level of Care Code Est Pt Level 4 (04951) Diagnoses 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 Colon location: transverse Obstructive sleep apnea G47.33 Type 2 diabetes mellitus with hyperglycemia, without long-term current use of insulin E11.65 Diabetes mellitus complication status: with hyperglycemia Diabetes mellitus marine oil terminal superintendent insulin use: without jail use Diabetes mellitus type: type 2 Benign essential hypertension I10 Pure hypercholesterolemia E78.00 Vitamin D deficiency E55.9 Stage 3a chronic kidney disease N18.31 Chronic kidney disease stage 3 subtype: stage 3a (GFR 45-59) GERD without esophagitis K21.9 Overweight (BMI 25.0-29.9) E66.3 Additional Codes PHQ-9 - 70021 - PHQ-9 Billing: Yes ([id number]) Assessment & Plan Assessment & Plan (1) Colon cancer: Code(s): C18.9 - Malignant neoplasm of colon, unspecified Category: Medical Qualifiers: Colon location: transverse Qualified Code(s): C18.4 - Malignant neoplasm of transverse colon Plan: S/P laparotomy and resection of proximal transverse colon, with diverting loop ileostomy on 04/29/[address] Fam Pathology revealed invasive adenocarcinoma, with tumor perforating the visceral peritoneum (pT4a), focal high grade adenomatous dysplasia and lymph nodes and anastomotic tissues negative for tumor (pN0) He completed adjuvant chemotherapy (modified FOLFOX 6 regimen) although he developed SBO due to adhesions back in December 2022 and required exploratory laparotomy with lysis of extensive adhesions He had his loop ileostomy reversed successfully on 08/02/2023 Follow-up with oncology and with surgery as scheduled for continuing surveillance - he is scheduled for his yearly surveillance CT for colon cancer in a few days on 06/28/2024 (2) Obstructive sleep apnea: Code(s): G47.33 - Obstructive sleep apnea (adult) (pediatric) Category: Medical Plan: Home sleep study done last month (May 2024) revealed (+) severe obstructive sleep apnea Patient is currently awaiting scheduling for in-lab sleep study for CPAP titration (3) Diabetes mellitus: Code(s): E11.9 - Type 2 diabetes mellitus without complications Category: Medical Qualifiers: Diabetes mellitus complication status: with hyperglycemia Diabetes mellitus jail insulin use: without marine oil terminal superintendent use Diabetes mellitus type: type 2 Qualified Code(s): E11.65 - Type 2 diabetes mellitus with hyperglycemia Plan: His HgbA1c has improved to 6.3% on his labs done a few days ago (was previously at 7.2% a few months ago) - goal is < 7.0% Reinforced diabetic diet Continue Humalog TID with meals dosed per sliding scale Metformin ER 500 mg was discontinued a few months ago due to [place] and he was also taken off Januvia 50 mg by endocrinology a few months ago Will start him additionally on Lantus 10 units SQ Q HS to help correct his speech therapist early intervention hyperglycemia (4) Benign essential hypertension: Code(s): I10 - Essential (primary) hypertension Category: Medical Plan: Reinforced low sodium diet - goal is systolic BP of at least 140 mm or less Continue Amlodipine 5 mg QD He was previously on Lisinopril 20 mg QD but this was discontinued when he presented to the ER last year in [place] Patient is reminded to continue monitoring his blood pressure regularly (5) Pure hypercholesterolemia: Code(s): E78.00 - Pure hypercholesterolemia, unspecified Category: Medical Plan: Results of his labs done a few days ago reviewed and discussed with patient Reinforced low cholesterol diet Continue Atorvastatin 10 mg QD Will recheck his labs and fasting lipids in 4 months for follow up (6) Vitamin D deficiency: Code(s): E55.9 - Vitamin D deficiency, unspecified Category: Medical Plan: Continue Vitamin D3 1000 units QD (7) CKD (chronic kidney disease) stage 3, GFR 30-59 ml/min: Code(s): N18.30 - Chronic kidney disease, stage 3 unspecified Category: Medical Qualifiers: Chronic kidney disease stage 3 subtype: stage 3a (GFR 45-59) Qualified Code(s): N18.31 - Chronic kidney disease, stage 3a Plan: His renal function appears to have stabilized over the past year Patient is again reminded to make sure he stays adequately hydrated all the time Will continue to monitor his renal function closely Follow-up with nephrology as scheduled (8) GERD without esophagitis: Code(s): K21.9 - Gastro-esophageal reflux disease without esophagitis Category: Medical Plan: Dietary restrictions reinforced Continue Pantoprazole 40 mg QD (9) Overweight (BMI 25.0-29.9): Code(s): E66.3 - Overweight Category: Medical Plan: Reinforced diet/exercise as tolerated/lose weight Plan Follow up in 4 months Orders: Orders Complete Blood Count Auto Diff 4 Months D64.9 - Anemia, unspecified Lipid Panel 4 Months E78.00 - Pure hypercholesterolemia, unspecified Microalbumin, Random (w Creat) 4 Months E11.9 - Type 2 diabetes mellitus without complications TSH reflex Free T4 4 Months E78.00 - Pure hypercholesterolemia, unspecified Comprehensive [place]. Panel Fast 4 Months E78.00 - Pure hypercholesterolemia, unspecified Hemoglobin A1c 4 Months E11.9 - Type 2 diabetes mellitus without complications UA CC w/rflx Micro + Cult 4 Months R30.0 - Dysuria Vitamin D 25-OH Total 4 Months E55.9 - Vitamin D deficiency, unspecified Vitamin B12 and Folate 4 Months E53.8 - Deficiency of other specified B group vitamins Medications: New Lantus Solostar U-100 Insulin (insulin glargine) 10 units (0.1 mL) subcut QPM 15 mL 3RF NS
--- OUTSIDE RECORDS SUMMARY | 2024-06-25 19:00 | XMS_ITS | Clinical Summary ---
Author Organization [facility] Facility Address [address] [place] [id number] Care Team Providers Care Ic Design Manager Name Role Phone Unavailable Primary Care Provider [...] age to complete this topic Insurance MEDICARE [employer]
== END 2024-06-25 17:34 | disposition home or self-care (01) ==
PROVIDERS: PCP Internal Medicine; Visit Provider Internal Medicine
DX: I12.9 Hypertensive chronic kidney disease with stage 1 through stage 4 chronic kidney disease, or unspecified chronic kidney disease (principal); C18.4 Malignant neoplasm of transverse colon; E11.65 Type 2 diabetes mellitus with hyperglycemia; N18.31 Chronic kidney disease, stage 3a; G47.33 Obstructive sleep apnea (adult) (pediatric); E78.00 Pure hypercholesterolemia, unspecified; E55.9 Vitamin D deficiency, unspecified; K21.9 Gastro-esophageal reflux disease without esophagitis; E66.3 Overweight

== ENCOUNTER → 2024-06-25 16:40 | Outpatient (BNVA) | payer MEDICARE, SELFPAY | PROVIDERS: PCP Internal Medicine; Visit Provider Internal Medicine | DX: C18.4 Malignant neoplasm of transverse colon (principal); G47.33 Obstructive sleep apnea (adult) (pediatric); E11.65 Type 2 diabetes mellitus with hyperglycemia; E78.00 Pure hypercholesterolemia, unspecified; I12.9 Hypertensive chronic kidney disease with stage 1 through stage 4 chronic kidney disease, or unspecified chronic kidney disease; E11.22 Type 2 diabetes mellitus with diabetic chronic kidney disease; N18.31 Chronic kidney disease, stage 3a; K21.9 Gastro-esophageal reflux disease without esophagitis; E66.3 Overweight; Z68.29 Body mass index [BMI] 29.0-29.9, adult; Z71.3 Dietary counseling and surveillance | CPT/HCPCS: 96127; 99212 ==

== ENCOUNTER 2024-06-28 | Outpatient (REF) | payer MEDICARE, SELFPAY ==
--- NOTE | ~2024-06-28 | CT_ITS ---
CLINICAL HISTORY: Surveillance for colon cancer CT abdomen and pelvis with contrast Comparison: CT/OK/SR - CT ABDOMEN PELVIS W IV CON - 05/12/2023 02:59 PM EST Findings: No consolidation or effusion. The liver demonstrates tiny stable low-density foci, too small to characterize but likely cysts. The gallbladder, spleen, adrenal glands and pancreas are unremarkable. Kidneys, ureters and bladder demonstrate no acute abnormality Persistent bladder wall thickening and enlarged prostate gland. No bowel obstruction or free air. No free fluid, abscess or adenopathy. Patent bowel anastomoses. Moderate atherosclerotic disease. No suspicious bone lesion. Impression: No CT evidence of residual or recurrent disease. Incidental findings as detailed This document has been electronically signed by: Sidney Reardon MD on 06/30/2024 05:26:33
[2024-06-28] MEDS: iohexoL 350 MG/ML 100 ML INFUS..BTL IV (16:42)
== END 2024-06-28 00:01 | disposition home or self-care (01) ==
LOC: HO.CT
PROVIDERS: PCP Internal Medicine; Visit Provider Internal Medicine
DX: C18.9 Malignant neoplasm of colon, unspecified (principal)
CPT/HCPCS: 74177; Q9967

== ENCOUNTER → 2024-06-28 15:13 | Outpatient (BNV) | payer MEDICARE, SELFPAY | PROVIDERS: PCP Internal Medicine; Visit Provider Radiology Vascular & Interventional Radiology | DX: Z85.038 Personal history of other malignant neoplasm of large intestine (principal) | CPT/HCPCS: 74177 ==

== ENCOUNTER 2024-07-09 13:07 | Outpatient (AMB) | payer MEDICARE, SELFPAY ==
--- NOTE | 2024-07-09 13:15 | MHC.OFFVIS ---
Vital Signs 07/09/24 13:16 Height 5 ft 4 in Weight 174 lb BMI 29.9 BP 130/80 Blood Pressure Location Lt brachial Position Sitting Pulse 68 Pulse Source Pulse Oximeter Pulse Oximetry (%) 98 Oxygen Delivery Method Room Air Intake Visit Reasons: 3 mo follow up Intake Note: Patient presents for 3 month follow up sleep apnea. Titration study in chart 05/01/24. Security Tech Required: No Allergies No Known Allergies [No Known Allergies*] Allergy (Verified 06/25/24 17:26) HPI Comments Details: 73 year old male h/o colon cancer he is now in remission referred to us by PCP for sleep evaluation. He has irregular sleeping patterns goes to sleep at midnight most nights, with 1 bathroom break, and wakes up at 9am. He feels good in the mornings and falls asleep in front of the TV after lunch. He snores loudly at night, and wakes himself up with multiple episodes of gasping per . She sometimes has to nudge him to wake him up when he stops breathing. notices he has been moving his legs He continues to c/o of numbness and tingling bilaterally in feet and says it is more comfortable at daytime when he is walking. His memory is stable, he occasionally forgets tasks, names, misplaces articles, and has difficulty with name of streets when driving. His vision is improved with new RX glasses. He does not walk as much as he would like to due to pain in his feet and declines medications today. His mood and diet are good. [facility] Medical History Obstructive sleep apnea GERD without esophagitis Vitamin B [address] History of colon cancer Small bowel obstruction Coagulase negative Staphylococcus bacteremia Colon cancer Syncope Benign essential hypertension Overweight (BMI 25.0-29.9) Vitamin D deficiency Diabetes mellitus Pure hypercholesterolemia Surgical History Hx of surgical procedure (~08/02/23) History of colonoscopy (~2022) Status post laparotomy History of surgery Status post colon resection (~04/29/22) History of colonoscopy Family History Father Diabetes Hypertension Mother Diabetes Hypertension Mother Colon cancer Unknown Colon cancer Daughter Breast cancer Social History Household Members: Spouse Housing: House Are you a primary hospice care transitions coordinator to a significant other at home: No Do you presently have visiting nurse or other home services: No Unable to assess alcohol history related to: Unknown Alcohol intake: never Patient Tobacco Use Status: Never used Tobacco e-Cigarette/Vaping Use: Never Used Second Hand Smoke Exposure: No Advance Directives Date on File: 12/24/21 service: No Current occupational status: retired Cognitive needs: No Hearing needs: No Vision needs: Yes Physical Exam Vital Signs: Last Vital Signs Pulse 68 07/09/24 13:16 BP 130/80 07/09/24 13:16 Pulse Ox 98 07/09/24 13:16 Oxygen Delivery Method Room Air 07/09/24 13:16 BMI result Body Mass Index 29.9 Const General: cooperative, comfortable and no acute distress Nutritional Appearance: average body habitus Orientation/consciousness: patient oriented x3 Eyes Pupils: Equal, round and reactive pupils present Neck Neck: Yes full ROM and Yes supple Resp Effort & Inspection: normal respiratory effort and able to speak in complete sentences Neuro General: patient oriented x3 and moves all extremities Cranial nerves: Yes CN's II-XII intact bilaterally, Yes Facial sensation intact/muscles of mastication intact, Yes Equal, round and reactive pupils present, Yes Normal accommodation reflex present, Yes Bilaterally intact EOM present, Yes Nystagmus not present, Yes Normal facial strength present, Yes Midline tongue present, Yes Ability to bilaterally rotate head present and Yes Ability to bilaterally elevate shoulders present Cognition (Neuro): normal cognition Gait exam (Neuro): Normal gait present and Other gait observations present Motor exam (neuro): 5/5 motor strength present throughout and Normal motor muscle tone present throughout Sensory Exam: Abnormal lower extremity sensory exam (Feet bilaterally - numbness) Deep tendon reflexes (DTR's): Right triceps reflex intensity grade: 2+, Left triceps reflex intensity grade: 2+, Rt Biceps (C5, C6): 2+, Left biceps reflex intensity grade: 2+, Right brachioradialis reflex intensity grade: 2+, Left brachioradialis reflex intensity grade: 2+, Right patellar reflex intensity grade: 2+ and Left patellar reflex intensity grade: 2+ Coordination: [id number] test normal Psych Thought process: Normal thought process present Thought content: Normal thought content present Results Reviewed Results Reviewed: HST Completed AHI is 39.8 and O2 Wallace to 72%. Will send him for a Titration Study today. Labs Glucose fasting is 153H his A1c is 6.3 Check Iron and B12/B6 Assessment & Plan Assessment & Plan (1) Numbness and tingling of both feet: Code(s): R20.0 - Anesthesia of skin; R20.2 - Paresthesia of skin Category: Medical Plan Will send him for titration study. Labs to r/o fatgue and cause of Neuropathy: B12 and Folate /B6/ Iron/ Homocysteine/ MMA / Ferritin F/U with PCP for fasting blood sugars elevated 153. Numbness and tingling in feet when walking, Dr. Duff's memory foam insoles and good walking shoes. Snoring, may use nose strip and mouth guard. Orders: Orders RT PSG in-lab sleep titration Today G47.33 - Obstructive sleep apnea (adult) (pediatric) IRON PROFILE Today G47.9 - Sleep disorder, unspecified, R53.83 - Other fatigue Homocysteine Today G47.19 - Other hypersomnia Methylmalonic Acid Today G47.9 - Sleep disorder, unspecified, R53.83 - Other fatigue Ferritin Today G47.19 - Other hypersomnia, G57.93 - Unspecified mononeuropathy of bilateral lower limbs Vitamin B12 and Folate Today G47.19 - Other hypersomnia Patient Instructions: Sleep Hygiene provided, setting a strict sleep wake cycle will help with the circadian rhythm, no devices in bed, may read a book, limit fluid intake 2 hours prior to bed. For snoring you may use nose strips, or mouth guard. Monitor Blood sugars and f/u with PCP for Insulin dose adjustments. Bilateral feet, Peripheral neuropathy, use Dr. Patten insoles with memory foam. F/U in 2 months after titration and pressures are adjusted for compliance of cPap. Coding Level of Care Code Est Pt Level 4 (16649) Diagnoses Numbness and tingling of both feet R20.0; R20.2 Time Spent (min) 30 Comment
[2024-07-09 13:16] VITALS: BP 130/80; PULSE 68; O2SAT 98; BMI 29.9
--- OUTSIDE RECORDS SUMMARY | 2024-07-09 15:17 | XMS_ITS | Clinical Summary ---
Author Organization [facility] Facility Address [address] [place] [id number] Care Team Providers Care Behavioral Technician Name Role Phone Unavailable Primary Care Provider [...] age to complete this topic Insurance MEDICARE [facility] MEDICARE [facility]
== END 2024-07-09 14:14 | disposition home or self-care (01) ==
LOC: HO.HSMS 13:08
PROVIDERS: PCP Internal Medicine; Visit Provider Physician Assistant Medical
DX: R20.0 Anesthesia of skin (principal); R20.2 Paresthesia of skin
CPT/HCPCS: 99214

== ENCOUNTER → 2024-07-09 13:07 | Outpatient (BNVA) | payer MEDICARE, SELFPAY | PROVIDERS: PCP Internal Medicine; Visit Provider Physician Assistant Medical | DX: R20.0 Anesthesia of skin (principal); R20.2 Paresthesia of skin | CPT/HCPCS: 99212 ==

== ENCOUNTER 2024-08-17 06:16 | Outpatient (REF) | payer MEDICARE, SELFPAY ==
[2024-08-17 06:56] LABS: Iron 74 mcg/dL (45-160); Percent Iron Saturation 32 % (15-50); Total Iron Binding Capacity 234 mcg/dL (228-428); Unsaturated Iron Binding 160 ug/dL
[2024-08-17 07:10] LABS: Ferritin 47 ng/mL (20-250)
[2024-08-17 07:41] LABS: Folate 9.2 ng/mL (> or = 4.0); Vitamin B12 903 pg/mL (200-900)
[2024-08-20 17:39] LABS: Homocysteine 10.1 umol/L (<11.4)
[2024-08-21 09:43] LABS: Methylmalonic Acid 85 nmol/L (69-390)
== END 2024-08-17 06:17 | disposition home or self-care (01) ==
LOC: HO.LAB 06:16
PROVIDERS: PCP Internal Medicine; Visit Provider Physician Assistant Medical
DX: G47.19 Other hypersomnia (principal); R53.83 Other fatigue; G47.9 Sleep disorder, unspecified; G57.93 Unspecified mononeuropathy of bilateral lower limbs
CPT/HCPCS: 36415; 82607; 82728; 82746; 83090; 83540; 83921

== ENCOUNTER 2024-09-10 14:12 | Outpatient (AMB) | payer MEDICARE, SELFPAY ==
--- OUTSIDE RECORDS SUMMARY | 2024-09-10 14:23 | XMS_ITS | Clinical Summary ---
Author Organization [facility] Facility Address [address] [place] [id number] Care Team Providers Care Communications Attendant Name Role Phone Unavailable Primary Care Provider [...] Active Problems No known active problems Immunizations Immunization Administration Dates Next Due Pfizer SARS-COV-2 08/05/2020,07/15/2020 [...] Due Date Last Done Comments Pneumococcal Vaccine: 50+ Ye ars (1 of 2 - PCV) 12/26/1971 Colorectal Cancer Screening: Annual FOBT 2001 Colorectal Cancer Screening: Colonoscopy 2001 Colorectal Cancer Screening: Sigmoidoscopy 2001 Influenza Vaccine (Season Ended) 2024 Hepatitis B Vaccine Aged Out No longe r eligible based on patient's age to complete this topic Insurance Medicare [facility] Medicare [facility]
[2024-09-10 14:43] VITALS: PULSE 53; O2SAT 97; BMI 29.2
--- NOTE | 2024-09-10 14:43 | MHC.OFFVIS ---
Vital Signs 09/10/24 14:43 Height 5 ft 4 in Weight 170 lb 4 oz BMI 29.2 Pulse 53 Pulse Source Pulse Oximeter Pulse Oximetry (%) 97 Oxygen Delivery Method Room Air Intake Visit Reasons: 2 mo follow up Intake Note: Patient presents follow up numbness-tingling/ARABELLA. Labs/Titration in chart(trialed 5-9cm water, breathing and oxygen stabilized on all pressures. Start CPAP 9cm water). Accompanied by: Spouse Allergies No Known Allergies [No Known Allergies*] Allergy (Verified 09/10/24 14:50) HPI Comments Details: 73 year old male with h/o colon cancer now in remission referred to us by PCP for sleep evaluation. 07/17/2024 He was titrated on 5-9cmH20, breathing and oxygen stabilized on all pressures. Start CPAP at 9cmH20 and monitor for compliance. He has irregular sleeping patterns goes to sleep at midnight most nights, with 1 bathroom break, and wakes up at 9am. He feels good in the mornings and falls asleep in front of the TV after lunch. He snores loudly at night, and wakes himself up with multiple episodes of gasping per . She sometimes has to nudge him to wake him up when he stops breathing and snores loudly. He also notices he has been moving his legs alot at night. He has T2DM on 15 units of Lantus. He continues to c/o of numbness and tingling bilaterally in feet at night and says it is more comfortable at daytime when he is walking. His memory is stable, he occasionally forgets tasks, names, misplaces articles, and has difficulty with name of streets when driving. He does not walk as much as he would like to due to pain. His mood is stable, diet is improving as he is being followed by a geology instructor and his food technology teacher. [facility] Medical History (Updated 09/10/24 @ 15:33 by Dominguez Cummings PA-C) Obstructive sleep apnea GERD without esophagitis Vitamin B [address] History of colon cancer Small bowel obstruction Coagulase negative Staphylococcus bacteremia Colon cancer Syncope Benign essential hypertension Overweight (BMI 25.0-29.9) Vitamin D deficiency Diabetes mellitus Pure hypercholesterolemia Surgical History Hx of surgical procedure (~04/09/24) History of colonoscopy (~2022) Status post laparotomy History of surgery Status post colon resection (~04/29/22) History of colonoscopy Family History Father Diabetes Hypertension Mother Diabetes Hypertension Mother Colon cancer Unknown Colon cancer Daughter Breast cancer Social History Household Members: Spouse Housing: House Are you a primary floor care specialist to a significant other at home: No Do you presently have visiting nurse or other home services: No Unable to assess alcohol history related to: Unknown Alcohol intake: never Patient Tobacco Use Status: Never used Tobacco e-Cigarette/Vaping Use: Never Used Second Hand Smoke Exposure: No Advance Directives Date on File: 12/24/21 service: No Current occupational status: retired Cognitive needs: No Hearing needs: No Vision needs: Yes Physical Exam Vital Signs: Last Vital Signs Pulse 53 09/10/24 14:43 Pulse Ox 97 09/10/24 14:43 Oxygen Delivery Method Room Air 09/10/24 14:43 BMI result Body Mass Index 29.2 Const General: cooperative, comfortable and no acute distress Orientation/consciousness: patient oriented x3 Eyes Pupils: Equal, round and reactive pupils present Resp Effort & Inspection: normal respiratory effort and able to speak in complete sentences Neuro General: patient oriented x3 and moves all extremities Cranial nerves: Yes Facial sensation intact/muscles of mastication intact, Yes Equal, round and reactive pupils present, Yes Normal accommodation reflex present, Yes Normal facial strength present, Yes Midline tongue present, Yes Ability to bilaterally rotate head present and Yes Ability to bilaterally elevate shoulders present Gait exam (Neuro): Normal gait present Motor exam (neuro): 5/5 motor strength present throughout and tone not normal throughout Results Reviewed Results Reviewed: Titration results 07/17/2024 5-9cmH20 breathing and oxygen stabilized, start CPAP at 9cmH20 and monitor for compliance. Labs reviewed with patient today. Assessment & Plan Assessment & Plan (1) Obstructive sleep apnea: Code(s): G47.33 - Obstructive sleep apnea (adult) (pediatric) Category: Medical (2) Numbness and tingling of both feet: Onset Date: ~09/10/24 Code(s): R20.0 - Anesthesia of skin; R20.2 - Paresthesia of skin Category: Medical (3) Loud snoring: Code(s): R06.83 - Snoring Category: Medical Plan ARABELLA start cpap at 9cmH20 and f/u for compliance in 4 months. Snoring nose strip and cpap, with chin strap and mask. Neuropathy of Bilatera feet, monitor for RLS, continue 400mg PO magnesium and b12 every other day, continue vitamin D3 daily. Labs reviewed with patient today. Patient Instructions: Sleep Hygiene provided: set a scheduled bedtime and wake time to help regulate the circadian rhythm and balance the release of pituitary hormones. Sleep in a dark room, temperatures below 68 degrees, and no devices n bed. Limit caffeinated products 6 hours prior to bed, and limit fluids 2-4 hours prior to bed. Gentle night yoga, diffusing essential oils, and playing soft music can be relaxing. Wash mask, tubing and change filters as needed. F/U in 4 months. Coding Level of Care Code Est Pt Level 4 (13993) Diagnoses Obstructive sleep apnea G47.33 Numbness and tingling of both feet R20.0; R20.2 Loud snoring R06.83 Time Spent (min) 20
== END 2024-09-10 15:18 | disposition home or self-care (01) ==
LOC: HO.HSMS 14:12
PROVIDERS: PCP Internal Medicine; Visit Provider Physician Assistant Medical
DX: G47.33 Obstructive sleep apnea (adult) (pediatric) (principal); R20.0 Anesthesia of skin; R20.2 Paresthesia of skin; R06.83 Snoring
CPT/HCPCS: 99214

== ENCOUNTER → 2024-09-10 14:12 | Outpatient (BNVA) | payer MEDICARE, SELFPAY | PROVIDERS: PCP Internal Medicine; Visit Provider Physician Assistant Medical | DX: G47.33 Obstructive sleep apnea (adult) (pediatric) (principal); R20.0 Anesthesia of skin; R20.2 Paresthesia of skin; R06.83 Snoring; R53.83 Other fatigue; Z99.89 Dependence on other enabling machines and devices | CPT/HCPCS: 99212 ==

== ENCOUNTER 2024-10-02 14:18 | Outpatient (AMB) | payer MEDICARE, SELFPAY ==
[2024-10-02 14:27] VITALS: BMI 29.2
--- NOTE | 2024-10-02 14:27 | A.OFFVIS_ITS ---
VS Expanded 10/02/24 14:27 Height 5 ft 4 in Weight 170 lb 3.15 oz BMI 29.2 Intake Visit Reasons: T2DM Allergies No Known Allergies (No Known Allergies*) Allergy (Verified 09/10/24 14:50) Nutrition Presentation Details: Pt presents for MNT f/u for t2DM Pt reports bg are in the 130s fasting and at bedtime pt reports having good appetite, having 2-3 meals/day , typical meal B: toast with peanut butter or 1-2 eggs and coffee or tea or water or milk L: root vegetables and chicken with green beans,water D: sand (chicken/cheese lettuce tomato ) or lunch leftovers, water snack : fruit or crackers or yogurt and 1-2 snack beverages: water, milk , tea/coffee food frequency fish: 2 x/week fruits :2/d dairy: 2-3 /d vegetables: 2-3 serving/d etoh/smoking- denies physical activity : ADL hypoglycemia - denies BS Monitoring Most Recent Diabetes Results: Microalb/Creat Ratio, (<30) 45.6 ug/mg cr H 06/20/24 Cholesterol, (<200) 142 mg/dL 06/20/24 HDL Cholesterol, (>40) 39 mg/dL L 06/20/24 Triglycerides, (<150) 67 mg/dL 06/20/24 Creatinine, (0.5-1.4) 1.22 mg/dL 06/20/24 BUN, (9-16) 19 mg/dL H 06/20/24 Sodium, (135-145) 142 mmol/L 06/20/24 Potassium, (3.3-5.1) 4.4 mmol/L 06/20/24 Chloride, (96-108) 110 mmol/L H 06/20/24 Carbon Dioxide, (22-29) 25 mmol/L 06/20/24 Calcium, (8.4-10.2) 9.0 mg/dL 06/20/24 AST, (5-37) 23 U/L 06/20/24 ALT, (0-40) 22 U/L 06/20/24 Total Protein, (6.5-8.0) 6.9 g/dL 06/20/24 Albumin, (3.5-5.0) 4.2 g/dL 06/20/24 [facility] Medical History Obstructive sleep apnea GERD without esophagitis Vitamin B [address] History of colon cancer Small bowel obstruction Coagulase negative Staphylococcus bacteremia Colon cancer Syncope Benign essential hypertension Overweight (BMI 25.0-29.9) Vitamin D deficiency Diabetes mellitus Pure hypercholesterolemia Surgical History Hx of surgical procedure (~08/02/23) History of colonoscopy (~2022) Status post laparotomy History of surgery Status post colon resection (~04/29/22) History of colonoscopy Family History Father Diabetes Hypertension Mother Diabetes Hypertension Mother Colon cancer Unknown Colon cancer Daughter Breast cancer Social History Household Members: Spouse Housing: House Are you a primary adult day care worker to a significant other at home: No Do you presently have visiting nurse or other home services: No Unable to assess alcohol history related to: Unknown Alcohol intake: never Patient Tobacco Use Status: Never used Tobacco e-Cigarette/Vaping Use: Never Used Second Hand Smoke Exposure: No Advance Directives Date on File: 12/24/21 service: No Current occupational status: retired Cognitive needs: No Hearing needs: No Vision needs: Yes Assessment & Plan Assessment & Plan (1) Diabetes: Code(s): E11.9 - Type 2 diabetes mellitus without complications Category: Medical Plan: REview healthy plate method/mediterranean diet concepts used wt: 77kg on 10/17) Est kcal needs as per MSJ: 2000 (40% carb, 30% protein/fat) Est fluid needs as per 25-30 ml/d: 1875- 2250 Est prot per day as per 1 g/kg bw: 75 Recommend fiber intake : 8-10 g per day and gradually increase as tolerated Recommend sodium intake per day : less than 2000 mg Educated patient on: ( R = reviewed V = verbalizes understanding N/R = needs review N/A = not applicable * Food sources of carbohydrate, adequate serving sizes and its role in various health conditions: R ,V * Differences between complex carbohydrates a simple carbohydrates, role of fiber in diet: R , V * Differences between types of fats and role in diet (mono on saturated fat fatty acids, saturated fatty acids, trans fats): R, V * Food sources of protein : R, V * Food sources of sodium in salt and healthy modifications for heart health in kidney health: R V * Vitamins and minerals: R * Healthy plate method concept: R , V * Physical activity: Benefits a precaution: R, V * Hypoglycemia protocol (rule of 15): R, V * Dietary prevention of Hyperglycemia: R , V Patient Instructions: Continue following healthy plate method Choose whole grain foods Caution with amount of salt added to foods, choose lower sodium food choices - see list of options Coding Level of Care Code Nutr Indiv Subseq (98476) Diagnoses Diabetes E11.9 Time Spent (min) 30
--- OUTSIDE RECORDS SUMMARY | 2024-10-02 17:14 | XMS_ITS | Clinical Summary ---
Author Organization [facility] Facility Address [address] [place] [id number] Care Team Providers Care Molder Trimmer Name Role Phone Unavailable Primary Care Provider [...] age to complete this topic Insurance Medicare [facility] Medicare [facility]
== END 2024-10-02 15:12 | disposition home or self-care (01) ==
LOC: HO.ENCR 14:19
PROVIDERS: PCP Internal Medicine; Visit Provider Dietitian, Registered
DX: E11.9 Type 2 diabetes mellitus without complications (principal)

== ENCOUNTER → 2024-10-02 14:18 | Outpatient (BNVA) | payer MEDICARE, SELFPAY | PROVIDERS: PCP Internal Medicine; Visit Provider Dietitian, Registered | DX: E11.9 Type 2 diabetes mellitus without complications (principal) | CPT/HCPCS: 97803 ==

== ENCOUNTER 2024-10-31 06:10 | Outpatient (REF) | payer MEDICARE, SELFPAY ==
[2024-10-31 06:28] LABS: MANUAL DIFF FLAG NO
[2024-10-31 07:24] LABS: Hematocrit 41.0 % (42.0-52.0); Hemoglobin 13.5 g/dl (14.0-18.0); Imm Gran Abs Auto 0.02 X10*3/uL (0.00-0.03); Imm Gran Pct Auto 0.3 % (0.0-0.4); Lymphocytes Absolute Auto 1.6 X10*3/uL (1.2-4.9); Mean Corpuscular HGB Conc 32.9 g/dl (31.0-36.0); Mean Corpuscular Hemoglobin 27.1 pg (27.0-33.0); Mean Corpuscular Volume 82.2 fL (80.0-98.0); NRBC Abs Auto 0.000 X10*3/uL (0.0-0.012); NRBC Pct Auto 0.0 /100WBC (0.0-0.2); Platelet Count 138 X10*3/uL (160-400); Red Blood Count 4.99 X10*6/uL (4.60-5.80); White Blood Count 7.2 X10*3/uL (4.8-10.8)
[2024-10-31 07:27] LABS: Hemoglobin A1C 168.5132 umol/L; Total Hemoglobin (HGBA1C) 3527.7966 umol/L
[2024-10-31 07:46] LABS: Appearance Urine Clear; Glucose Urine UA Negative (Negative); PH 5.5 (5.0-9.0); Specific Gravity - Urine 1.020 (1.005-1.025)
[2024-10-31 07:48] LABS: Microalbum/Creatinine Ratio Ur 47.7 ug/mg cr (<30)
[2024-10-31 07:50] LABS: Alanine Aminotransferase 22 U/L (0-40); Albumin Level 4.5 g/dL (3.5-5.0); Alkaline Phosphatase 79 U/L (39-117); Anion Gap 12 (12-20); Aspartate Amino Transferase 22 U/L (5-37); Blood Urea Nitrogen 24 mg/dL (9-16); Calcium 8.9 mg/dL (8.4-10.2); Carbon Dioxide 27 mmol/L (22-29); Chloride 109 mmol/L (96-108); Cholesterol 138 mg/dL (<200); Estimated Glomerular Filt Rate 56; HDL Cholesterol 40 mg/dL (>40); Potassium 4.1 mmol/L (3.3-5.1); Sodium 144 mmol/L (135-145); Total Protein 6.5 g/dL (6.5-8.0); Triglycerides 57 mg/dL (<150)
[2024-10-31 08:20] LABS: Folate 7.6 ng/mL (> or = 4.0); Vitamin B12 735 pg/mL (200-900)
== END 2024-10-31 06:11 | disposition home or self-care (01) ==
LOC: HO.LAB 06:10
PROVIDERS: Absent Provider Internal Medicine Hypertension Specialist; PCP Internal Medicine; Visit Provider Internal Medicine
DX: E11.22 Type 2 diabetes mellitus with diabetic chronic kidney disease (principal); N18.31 Chronic kidney disease, stage 3a; N18.32 Chronic kidney disease, stage 3b; D63.1 Anemia in chronic kidney disease; E78.00 Pure hypercholesterolemia, unspecified; E55.9 Vitamin D deficiency, unspecified; E53.8 Deficiency of other specified B group vitamins; R30.0 Dysuria
CPT/HCPCS: 36415; 80053; 80061; 81003; 82043; 82306; 82570; 82607; 82746; 83036; 84443; 85025

== ENCOUNTER 2024-11-05 16:36 | Outpatient (AMB) | payer MEDICARE, SELFPAY ==
--- NOTE | 2024-11-05 16:53 | MHC.PC.OV ---
Vital Signs 11/05/24 16:55 Height 5 ft 4 in Weight 170 lb BMI 29.2 BP 146/60 H Blood Pressure Location Lt brachial Position Sitting Pulse 61 Pulse Source Pulse Oximeter Pulse Oximetry (%) 96 Oxygen Delivery Method Room Air Intake Visit Reasons: 4 month f/u Intake Note: Patient here for a 4 month follow up Conference Services Coordinator Required: No Accompanied by: Self / Same As Patient Allergies No Known Allergies (No Known Allergies*) Allergy (Verified 11/05/24 17:23) Medication List - Last Reconciled 11/05/24 by Bimal Lepe MD amlodipine 5 mg PO DAILY 90 days atorvastatin 10 mg PO BEDTIME 90 days [BD Ultra Fine Floridalma Pen Needle 32 G x Use as directed up to 4 times a day] blood sugar diagnostic (FreeStyle Test strips) As directed blood sugar diagnostic (FreeStyle Lite Strips) Test four times a day or as directed. 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 Lantus Solostar U-100 Insulin (insulin glargine) 10 units (0.1 mL) subcut QPM NS magnesium oxide 400 mg PO DAILY 90 days pantoprazole 40 mg PO DAILY@0630 pen needle, diabetic Use four times a day or as directed. Tobacco use date assessed: 06/25/24 Dental Screening Dental Screen Date: 06/25/24 HPI 4 month f/u HPI Details Patient comes in today for his follow-up visit States that he feels okay He denies any headaches or dizziness Denies any chest pains, no shortness of breath No nausea/vomiting, no abdominal pain No change in bowel habits noted Needs a few of his Rx refilled He had his follow-up labs done last week - to discuss his results [facility] Medical History Obstructive sleep apnea GERD without esophagitis Vitamin B [address] History of colon cancer Small bowel obstruction Coagulase negative Staphylococcus bacteremia Colon cancer Syncope Benign essential hypertension Overweight (BMI 25.0-29.9) Vitamin D deficiency Diabetes mellitus Pure hypercholesterolemia Surgical History Hx of surgical procedure (~08/02/23) History of colonoscopy (~2022) Status post laparotomy History of surgery Status post colon resection (~04/29/22) History of colonoscopy Family History Father Diabetes Hypertension Mother Diabetes Hypertension Mother Colon cancer Unknown Colon cancer Daughter Breast cancer Social History Household Members: Spouse Housing: House Are you a primary human services care specialist to a significant other at home: No Do you presently have visiting nurse or other home services: No Unable to assess alcohol history related to: Unknown Alcohol intake: never Patient Tobacco Use Status: Never used Tobacco e-Cigarette/Vaping Use: Never Used Second Hand Smoke Exposure: No Advance Directives Date on File: 12/24/21 service: No Current occupational status: retired Cognitive needs: No Hearing needs: No Vision needs: Yes Questionnaire PHQ-9 Over the last 2 weeks, how often have you been bothered by any of the following problems? 1. Little interest or pleasure in doing things: not at all 2. Feeling down, depressed, or hopeless: not at all 3. Trouble falling or staying asleep, or sleeping too much: not at all 4. Feeling tired or having little energy: not at all 5. Poor appetite or overeating: not at all 6. Feeling bad about yourself - or that you are a failure or have let yourself or your family down: not at all 7. Trouble concentrating on things, such as reading the newspaper or watching television: not at all 8. Moving or speaking so slowly that other people could have noticed. Or the opposite - being so fidgety or restless that you have been moving around a lot more than usual: not at all 9. Thoughts that you would be better off or of hurting yourself in some way: not at all Total score: 0 Depression Screening Interpretation: Negative Depression Screening Done: Yes 11746 - PHQ-9 Billing: Yes Source: Developed by Drs. Cooper Beck, Gertrude Vega, Santo Tejada and colleagues, with an educational otto from [employer]. Thrive Questionnaire Date Thrive assessed: 11/05/24 I am a: Patient What is your living situation today?: I have a steady place to live Within the past 12 months, did the food you bought not last and you didn't have the money to get more?: Never true Within the past 12 months, did you worry whether your food would run out before you got money to buy more?: Never true Do you have trouble paying for medicines?: No Do you have trouble getting transportation to medical appointments?: No Do you have trouble paying your heating and electricity bill?: No Do you have trouble taking care of your child, family member or friend?: No Do you have trouble with day-to-day activities such as bathing, preparing meals, shopping, managing finances, etc.?: No Are you currently unemployed and looking for a job?: No Are you interested in more education?: No Please select the resources that you would like help with: None Currently or been in a relationship where the following occur: No concerns reported THRIVE Score: 0 AUDIT C Alcohol Use Questionnaire (AUDIT-C) 1. How often do you have a drink containing alcohol?: Never Total Score: 0 Score Reviewed/Action Taken: Yes AALIYAH-7 AMB Questionnaire AALIYAH-7 Date AALIYAH - 7 assessed: 06/25/24 Feeling nervous, anxious, or on edge: 0 = Not at all Not being able to stop or control worryin = Not at all Worrying too much about different things: 0 = Not at all Trouble relaxin = Not at all Being so restless that it is hard to sit still: 0 = Not at all Becoming easily annoyed or irritable: 0 = Not at all Feeling afraid as if something awful might happen: 0 = Not at all Total AALIYAH-7 score (0-4 normal; 5-9 mild; 10-14 moderate; 15-21 severe): 0 Source: Developed by Drs. Cooper Beck, Gertrude Vega, Santo Tejada and colleagues, with an educational otto from [employer]. Review of Systems Const Denies chills, Denies fatigue, Denies fever(s) and Denies headache(s) ENT Denies dysphagia, Denies dizziness, Denies otalgia, Denies headache(s), Denies neck pain, Denies odynophagia and Denies sore throat Card Denies chest pain, Denies palpitations and Denies dyspnea Resp Denies chest congestion, Denies cough and Denies dyspnea GI Denies abdominal pain, Denies constipation, Denies dysphagia, Denies heartburn, Denies diarrhea, Denies nausea, Denies odynophagia and Denies vomiting Denies dysuria, Denies nocturia and Denies urinary frequency Musc Denies back pain and Denies neck pain Skin/Breast Denies rash Neuro Denies dizziness and Denies headache(s) Endo Denies fatigue and Denies palpitations Physical exam (Primary Care) Vital Signs: Last Vital Signs Pulse 61 11/05/24 16:55 BP 146/60 H 11/05/24 16:55 Pulse Ox 96 11/05/24 16:55 Oxygen Delivery Method Room Air 11/05/24 16:55 BMI result Body Mass Index 29.2 Tobacco/Smoking Status: Tobacco use Status Tobacco use date assessed 06/25/24 11/05/24 16:59 Patient Tobacco Use Status Never used Tobacco 11/05/24 16:59 e-Cigarette/Vaping Use Never Used 11/05/24 16:59 PHQ-9: PHQ-9 Score PHQ-9: Total score 0 11/05/24 17:25 Depression Screening Interpretation: Negative Thrive Assessment: Date of Thrive Assessment Date Thrive assessed 11/05/24 11/05/24 17:25 Currently or been in a relationship where the following occur: No concerns reported Const General: no acute distress and alert HENMT Ears: TM's normal bilaterally and EAC's normal Throat: Yes posterior oropharynx normal and Yes tonsils normal Neck Neck: Yes supple and No lymphadenopathy Thyroid: Thyroid normal Resp Auscultation: clear to auscultation bilaterally, no rales and no wheezes Cardio Rate: regular rate Rhythm: regular rhythm Heart sounds: no murmurs GI Palpation (GI): Soft to palpation and nontender Auscultation: normal bowel sounds General: Yes no CVA tenderness Back/Spine/Pelvis Back: no CVA tenderness Thoracic/Lumbar Spine: No lumbar spinal tenderness Skin Rashes: no rashes Extrem General: Yes no clubbing, cyanosis or edema Results Reviewed Results Reviewed: Laboratory Tests 10/31/24 10/31/24 11/05/24 06:22 06:27 13:21 WBC 7.2 Hgb 13.5 L Hct 41.0 L Plt Count 138 L Sodium 144 Potassium 4.1 Creatinine 1.26 Estimated GFR 56 Fasting Glucose 122 H Hemoglobin A1c % 6.5 H Calcium 8.9 AST 22 ALT 22 Triglycerides 57 Cholesterol 138 LDL Cholesterol, Calc 87 HDL Cholesterol 40 L Carcinoembryonic Ag 1.80 25-OH Vitamin D Total 35.8 TSH 1.93 Ur Specific Salol 1.020 Urine Protein Trace Urine Glucose (UA) Negative Urine Blood Negative Urine Nitrite Negative Ur Leukocyte Esterase Negative Microalb/Creat Ratio 47.7 H Coding Level of Care Code Est Pt Level 4 (17289) Diagnoses 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 Colon location: transverse Obstructive sleep apnea G47.33 Type 2 diabetes mellitus with hyperglycemia, without long-term current use of insulin E11.65 Diabetes mellitus complication status: with hyperglycemia Diabetes mellitus intermediate insulin use: without adjunct faculty for medical terminology use Diabetes mellitus type: type 2 Benign essential hypertension I10 Pure hypercholesterolemia E78.00 Vitamin D deficiency E55.9 Stage 3a chronic kidney disease N18.31 Chronic kidney disease stage 3 subtype: stage 3a (GFR 45-59) GERD without esophagitis K21.9 Overweight (BMI 25.0-29.9) E66.3 Additional Codes PHQ-9 - 40776 - PHQ-9 Billing: Yes ([id number]) Assessment & Plan Assessment & Plan (1) Colon cancer: Code(s): C18.9 - Malignant neoplasm of colon, unspecified Category: Medical Qualifiers: Colon location: transverse Qualified Code(s): C18.4 - Malignant neoplasm of transverse colon Plan: S/P laparotomy and resection of proximal transverse colon, with diverting loop ileostomy on 04/29/[address] Fam Pathology revealed invasive adenocarcinoma, with tumor perforating the visceral peritoneum (pT4a), focal high grade adenomatous dysplasia and lymph nodes and anastomotic tissues negative for tumor (pN0) He completed adjuvant chemotherapy (modified FOLFOX 6 regimen) although he developed SBO due to adhesions back in December 2022 and required exploratory laparotomy with lysis of extensive adhesions He had his loop ileostomy reversed successfully on 08/02/[address] done most recently in June [address] evidence of residual or recurrent disease Follow-up with oncology and with surgery as scheduled for continuing surveillance (2) Obstructive sleep apnea: Code(s): G47.33 - Obstructive sleep apnea (adult) (pediatric) Category: Medical Plan: Home sleep study done in May 2024 revealed (+) severe obstructive sleep apnea Continue use of CPAP at 9 cm of water pressure daily at night when sleeping Follow up with Sleep Medicine as scheduled (3) Diabetes mellitus: Code(s): E11.9 - Type 2 diabetes mellitus without complications Category: Medical Qualifiers: Diabetes mellitus complication status: with hyperglycemia Diabetes mellitus intermediate insulin use: without intermediate use Diabetes mellitus type: type 2 Qualified Code(s): E11.65 - Type 2 diabetes mellitus with hyperglycemia Plan: His HgbA1c was at 6.5% on his labs done last week (was previously at 6.3% a few months ago) - goal is < 7.0% Reinforced diabetic diet Continue Humalog TID with meals dosed per sliding scale; continue Lantus 10 units SQ Q HS Metformin ER 500 mg was discontinued a few months ago due to MARILYNN; he was also taken off Januvia 50 mg by endocrinology a few months ago (4) Benign essential hypertension: Code(s): I10 - Essential (primary) hypertension Category: Medical Plan: Reinforced low sodium diet - goal is systolic BP of at least 140 mm or less Continue Amlodipine 5 mg QD He was previously on Lisinopril 20 mg QD but this was discontinued when he presented to the ER last year in [place] Patient is reminded to continue monitoring his blood pressure regularly (5) Pure hypercholesterolemia: Code(s): E78.00 - Pure hypercholesterolemia, unspecified Category: Medical Plan: Results of his labs done last week reviewed and discussed with patient Reinforced low cholesterol diet Continue Atorvastatin 10 mg QD Will recheck his labs and fasting lipids in 4 months for follow up (6) Vitamin D deficiency: Code(s): E55.9 - Vitamin D deficiency, unspecified Category: Medical Plan: Continue Vitamin D3 1000 units QD (7) CKD (chronic kidney disease) stage 3, GFR 30-59 ml/min: Code(s): N18.30 - Chronic kidney disease, stage 3 unspecified Category: Medical Qualifiers: Chronic kidney disease stage 3 subtype: stage 3a (GFR 45-59) Qualified Code(s): N18.31 - Chronic kidney disease, stage 3a Plan: His renal function appears to have stabilized over the past year Patient is again reminded to make sure he stays adequately hydrated all the time Will continue to monitor his renal function closely Follow-up with nephrology as scheduled (8) GERD without esophagitis: Code(s): K21.9 - Gastro-esophageal reflux disease without esophagitis Category: Medical Plan: Dietary restrictions reinforced Continue Pantoprazole 40 mg QD (9) Overweight (BMI 25.0-29.9): Code(s): E66.3 - Overweight Category: Medical Plan: Reinforced diet/exercise as tolerated/lose weight Plan Follow up in 4 months Orders: Orders Hemoglobin A1c 4 Months E11.9 - Type 2 diabetes mellitus without complications Lipid Panel 4 Months E78.00 - Pure hypercholesterolemia, unspecified Microalbumin, Random (w Creat) 4 Months E11.9 - Type 2 diabetes mellitus without complications UA CC w/rflx Micro + Cult 4 Months R30.0 - Dysuria Vitamin D 25-OH Total 4 Months E55.9 - Vitamin D deficiency, unspecified Complete Blood Count Auto Diff 4 Months D64.9 - Anemia, unspecified Comprehensive Wisner. Panel Fast 4 Months E78.00 - Pure hypercholesterolemia, unspecified TSH reflex Free T4 4 Months E78.00 - Pure hypercholesterolemia, unspecified Vitamin B12 and Folate 4 Months E53.8 - Deficiency of other specified B group vitamins Medications: Refilled atorvastatin 10 mg PO BEDTIME 90 tabs 1RF 90 days amlodipine 5 mg PO DAILY 90 tabs 1RF 90 days Lantus Solostar U-100 Insulin (insulin glargine) 10 units (0.1 mL) subcut QPM 15 mL 3RF NS
[2024-11-05 16:55] VITALS: BP 146/60; PULSE 61; O2SAT 96; BMI 29.2
--- OUTSIDE RECORDS SUMMARY | 2024-11-05 17:06 | XMS_ITS | Clinical Summary ---
Author Organization [facility] Facility Address [address] [place] [id number] Care Team Providers Care Culvert Installer Name Role Phone Unavailable Primary Care Provider [...] Cancer Screening: Sigmoidoscopy 2001 Influenza Vaccine (#1) 2024 Hepatitis B Vaccine Aged Out No longe r eligible based on patient's age to complete this topic Insurance Medicare [facility] Medicare [facility]
== END 2024-11-05 17:32 | disposition home or self-care (01) ==
LOC: HO.HMCH 16:37
PROVIDERS: PCP Internal Medicine; Visit Provider Internal Medicine
DX: I12.9 Hypertensive chronic kidney disease with stage 1 through stage 4 chronic kidney disease, or unspecified chronic kidney disease (principal); C18.4 Malignant neoplasm of transverse colon; E11.65 Type 2 diabetes mellitus with hyperglycemia; N18.31 Chronic kidney disease, stage 3a; G47.33 Obstructive sleep apnea (adult) (pediatric); E78.00 Pure hypercholesterolemia, unspecified; E55.9 Vitamin D deficiency, unspecified; K21.9 Gastro-esophageal reflux disease without esophagitis; E66.3 Overweight; Z68.25 Body mass index [BMI] 25.0-25.9, adult

== ENCOUNTER → 2024-11-05 16:36 | Outpatient (BNVA) | payer MEDICARE, SELFPAY | PROVIDERS: PCP Internal Medicine; Visit Provider Internal Medicine | DX: C18.4 Malignant neoplasm of transverse colon (principal); G47.33 Obstructive sleep apnea (adult) (pediatric); E11.65 Type 2 diabetes mellitus with hyperglycemia; E78.00 Pure hypercholesterolemia, unspecified; E55.9 Vitamin D deficiency, unspecified; I12.9 Hypertensive chronic kidney disease with stage 1 through stage 4 chronic kidney disease, or unspecified chronic kidney disease; E11.22 Type 2 diabetes mellitus with diabetic chronic kidney disease; N18.31 Chronic kidney disease, stage 3a; K21.9 Gastro-esophageal reflux disease without esophagitis; E66.3 Overweight; Z68.29 Body mass index [BMI] 29.0-29.9, adult; Z71.3 Dietary counseling and surveillance | CPT/HCPCS: 96127; 99212 ==

== ENCOUNTER 2024-11-19 09:40 | Outpatient (AMB) | payer MEDICARE, SELFPAY ==
[2024-11-19 09:56] VITALS: BP 150/60; PULSE 66; O2SAT 98; BMI 29.2
--- NOTE | 2024-11-19 09:56 | HO.NEPHOV ---
Vital Signs 11/19/24 09:56 11/19/24 10:04 Height 5 ft 4 in Weight 170 lb BMI 29.2 BP 150/60 H 130/60 Blood Pressure Location Lt brachial Lt brachial Position Sitting Sitting Pulse 66 Pulse Source Pulse Oximeter Pulse Oximetry (%) 98 Oxygen Delivery Method Room Air Intake Visit Reasons: 6mon follow-up w/labs-Conf Therapeutic Assistant Required: No Accompanied by: Self / Same As Patient Allergies No Known Allergies (No Known Allergies*) Allergy (Verified 11/05/24 17:23) Medication List - Last Reconciled 11/19/24 by Nato Lerner MD amlodipine 5 mg PO DAILY 90 days atorvastatin 10 mg PO BEDTIME 90 days [BD Ultra Fine Floridalma Pen Needle 32 G x Use as directed up to 4 times a day] blood sugar diagnostic (FreeStyle Test strips) As directed blood sugar diagnostic (FreeStyle Lite Strips) Test four times a day or as directed. 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 Lantus Solostar U-100 Insulin (insulin glargine) 10 units (0.1 mL) subcut QPM NS magnesium oxide 400 mg PO DAILY 90 days pantoprazole 40 mg PO DAILY@0630 pen needle, diabetic Use four times a day or as directed. HPI Comments Details: 72 yr old man with a history of [id number]-ubeyifvud type 2 diabetes, hypertension, hypercholesterolemia, vitamin-D deficiency with a h/o colon cancer s/p ex lap & resection of transverse colon stricture w/ loop ileostomy on 04/29/22. s/p Chemo He had MARILYNN in May 2022 with creatinine of 10 and K of 7. MARILYNN resolved with hydration He has completed chemotherapy. Creatinine is stable at 1.2 08/01/2023. Scheduled for reversal of colostomy tomorrow. Apparently he is cancer free at this time 01/20/2024. Serum underwent reversal of colostomy in July. He is doing very well. No new complaints. [facility] Medical History Obstructive sleep apnea GERD without esophagitis Vitamin B [address] History of colon cancer Small bowel obstruction Coagulase negative Staphylococcus bacteremia Colon cancer Syncope Benign essential hypertension Overweight (BMI 25.0-29.9) Vitamin D deficiency Diabetes mellitus Pure hypercholesterolemia Surgical History Hx of surgical procedure (~08/02/23) History of colonoscopy (~2022) Status post laparotomy History of surgery Status post colon resection (~04/29/22) History of colonoscopy Family History Father Diabetes Hypertension Mother Diabetes Hypertension Mother Colon cancer Unknown Colon cancer Daughter Breast cancer Social History Household Members: Spouse Housing: House Are you a primary child care counselor to a significant other at home: No Do you presently have visiting nurse or other home services: No Unable to assess alcohol history related to: Unknown Alcohol intake: never Patient Tobacco Use Status: Never used Tobacco e-Cigarette/Vaping Use: Never Used Second Hand Smoke Exposure: No Advance Directives Date on File: 12/24/21 service: No Current occupational status: retired Cognitive needs: No Hearing needs: No Vision needs: Yes Physical Exam Vital Signs: Last Vital Signs Pulse 66 11/19/24 09:56 BP 150/60 H 11/19/24 09:56 Pulse Ox 98 11/19/24 09:56 Oxygen Delivery Method Room Air 11/19/24 09:56 BMI result Body Mass Index 29.2 Comfortable Neck supple no JVD. Lungs entry equal no rales. Heart S1-S2 heard no gallop or rub. Abdomen soft nontender. Neuro alert awake oriented. No asterixis. Extremities no edema. Results Reviewed Nephrology Results: Hgb, (14.0-18.0) 13.5 g/dl L 10/31/24 WBC, (4.8-10.8) 7.2 X10*3/uL 10/31/24 Plt Count, (160-400) 138 X10*3/uL L 10/31/24 Sodium, (135-145) 144 mmol/L 10/31/24 Potassium, (3.3-5.1) 4.1 mmol/L 10/31/24 Chloride, (96-108) 109 mmol/L H 10/31/24 Carbon Dioxide, (22-29) 27 mmol/L 10/31/24 BUN, (9-16) 24 mg/dL H 10/31/24 Creatinine, (0.5-1.4) 1.26 mg/dL 10/31/24 Calcium, (8.4-10.2) 8.9 mg/dL 10/31/24 Urine Protein, (Neg-Trace) Trace mg/dL 10/31/24 Urine Creatinine 129.92 mg/dL 10/31/24 Assessment & Plan Assessment & Plan (1) CKD (chronic kidney disease) stage 3, GFR 30-59 ml/min: Code(s): N18.30 - Chronic kidney disease, stage 3 unspecified Category: Medical Qualifiers: Chronic kidney disease stage 3 subtype: stage 3a (GFR 45-59) Qualified Code(s): N18.31 - Chronic kidney disease, stage 3a (2) Benign essential hypertension: Code(s): I10 - Essential (primary) hypertension Category: Medical Plan h/o MARILYNN superimposed on CKD MARILYNN has resolved Creatinine bumped up again in 10/13/2023. Repeat Cr is 1.35 Probably baseline Encouraged to increase PO fluid intake Avoid nephrotoxins including NSAIDS HTN Initial BP was elevated REpeat was normal Watch BP at home Stay on low salt diet Ca Colon s/p Chemo Follow with Microalbuminuria in a setting of CM Will add Losartan 25 mg Q PM and watch creatinine and urine protein Orders: Orders Basic Metabolic Panel Today I10 - Essential (primary) hypertension, N18.31 - Chronic kidney disease, stage 3a Creatinine Urine Today I10 - Essential (primary) hypertension, N18.31 - Chronic kidney disease, stage 3a UA and rflx microscopic Today I10 - Essential (primary) hypertension, N18.31 - Chronic kidney disease, stage 3a Total Protein Urine Random Today I10 - Essential (primary) hypertension, N18.31 - Chronic kidney disease, stage 3a Medications: New losartan 25 mg PO DAILY 90 tabs 1RF Coding Level of Care Code Est Pt Level 4 (89323) Diagnoses Stage 3a chronic kidney disease N18.31 Chronic kidney disease stage 3 subtype: stage 3a (GFR 45-59) Benign essential hypertension I10
[2024-11-19 10:04] VITALS: BP 130/60
--- OUTSIDE RECORDS SUMMARY | 2024-11-19 10:32 | XMS_ITS | Clinical Summary ---
Author Organization [facility] Address [address] [place] [phone] Phone Care Team Providers Care Skein Winder Name Role Phone Unavailable Primary Care Provider [...] It is not the complete legal health record.[facility]
--- OUTSIDE RECORDS SUMMARY | 2024-11-19 10:32 | XMS_ITS | Clinical Summary ---
Author Organization [facility] Facility Address [address] [place] [id number] Care Team Providers Care Waffle Machine Operator Name Role Phone Unavailable Primary Care Provider [...] age to complete this topic Insurance Medicare [facility] Medicare [facility]
== END 2024-11-19 10:07 | disposition home or self-care (01) ==
PROVIDERS: PCP Internal Medicine; Visit Provider Internal Medicine Hypertension Specialist
DX: N18.31 Chronic kidney disease, stage 3a (principal); I10 Essential (primary) hypertension
CPT/HCPCS: 99214

== ENCOUNTER → 2024-11-19 09:40 | Outpatient (BNVA) | payer MEDICARE, SELFPAY | PROVIDERS: PCP Internal Medicine; Visit Provider Internal Medicine Hypertension Specialist | DX: E11.22 Type 2 diabetes mellitus with diabetic chronic kidney disease (principal); I12.9 Hypertensive chronic kidney disease with stage 1 through stage 4 chronic kidney disease, or unspecified chronic kidney disease; N18.31 Chronic kidney disease, stage 3a; E11.29 Type 2 diabetes mellitus with other diabetic kidney complication; R80.8 Other proteinuria; Z87.448 Personal history of other diseases of urinary system; Z79.85 Long-term (current) use of injectable non-insulin antidiabetic drugs; Z79.899 Other long term (current) drug therapy; Z85.038 Personal history of other malignant neoplasm of large intestine; Z92.21 Personal history of antineoplastic chemotherapy | CPT/HCPCS: 99212 ==

== ENCOUNTER → 2024-11-28 10:44 | Day surgery (SDC) | payer MEDICARE, SELFPAY ==
--- OUTSIDE RECORDS SUMMARY | 2024-11-13 13:12 | XMS_ITS | Clinical Summary ---
Author Organization [facility] Address [address] [place] [phone] Phone Care Team Providers Care Dental Laboratory Assistant Name Role Phone Unavailable Primary Care Provider Unavailabl e Social History Tobacco Use Types Packs/Day Years Used Date Smoking Tobacco: Never Assessed Education Answer Date Recorded Are you interested in more education? Not on douglas e 08/21/2022 Are you concerned about learning? Not on file 08/21/2022 No 08/21/2022 No 08/21/2022 Digital Access Answer Date Recorded No 09/21/2022 No 09/21/2022 Reliable internet access at home? Not on file 09/21/2022 Device with a working camera? Not on file Sex and Gender Information Value Date Recorded Sex Assigned at Not on file Legal Sex Male 9:02 AM EST Gender Identity Not on file Sexual Orientation Not on file Plan of Treatment Not on file Medical Devices Not on file Additional Source Comments The information contained in this document represents components of the legal health record. It is not the complete legal health record.[facility]
--- OUTSIDE RECORDS SUMMARY | 2024-11-13 13:12 | XMS_ITS | Clinical Summary ---
Author Organization [facility] Facility Address [address] [place] [id number] Care Team Providers Care Parquet Floor Layer Name Role Phone Unavailable Primary Care Provider [...] age to complete this topic Insurance Medicare [facility] Medicare [facility]
[2024-11-28] VITALS (13 sets, daily range): BP systolic 139–171; BP diastolic 62–78; PULSE 48–62; RESP 16–18; TEMP 36.6; O2SAT 97–100; BMI 28.8
--- NOTE | ~2024-11-28 | IR_ITS ---
Port removal History: Patient no longer requires access for chemotherapy. Referring physicians request removal. Procedure: The risks and benefits were discussed the patient and the consent was signed. The right anterior chest was prepped and draped in routine sterile fashion. The skin was anesthetized with 1% lidocaine. An incision was made over the previous scar. Utilizing blunt dissection, the port was removed from the chest with the catheter intact. The pocket was irrigated with 20 mL of normal saline and antibiotic solution. The port pocket was closed with interrupted 3-0 Vicryl sutures in the deep layer and surgical glue to close the skin. The patient tolerated the procedure well. A sterile dressing was applied. This procedure was performed by Basil Loera NP, and supervised by Lavon Ruelas MD. IR/IR cvc remove tunnel w prt/laboratory technology teacher Impression: Right port removal Electronically signed by: Manuel Ruelas MD 11/28/2024 05:52 PM EDT
[2024-11-28 12:14] LABS: Glucose, Whole Blood 119 mg/dL (60-115)
[2024-11-28 12:50] LABS: INTERNATIONAL NORM RATIO 1.1 (0.9-1.1); Prothrombin Time 12.4 SEC (10.9-12.4)
== END | disposition home or self-care (01) ==
PROVIDERS: Radiology Diagnostic Radiology; PCP Internal Medicine; Visit Provider Nurse Practitioner Family
PROC: (CPT 36590; principal; 2024-11-28 13:00)
DX: Z45.2 Encounter for adjustment and management of vascular access device (principal); Z85.038 Personal history of other malignant neoplasm of large intestine; Z90.49 Acquired absence of other specified parts of digestive tract; Z80.0 Family history of malignant neoplasm of digestive organs; I10 Essential (primary) hypertension; E78.00 Pure hypercholesterolemia, unspecified; E11.9 Type 2 diabetes mellitus without complications; E55.9 Vitamin D deficiency, unspecified; E53.8 Deficiency of other specified B group vitamins; G62.9 Polyneuropathy, unspecified; K21.9 Gastro-esophageal reflux disease without esophagitis; G47.33 Obstructive sleep apnea (adult) (pediatric); Z79.899 Other long term (current) drug therapy; Z98.890 Other specified postprocedural states
CPT/HCPCS: 36415; 36590; 82947; 85610; J0690; J2003; J2250; J3010

== ENCOUNTER → 2024-11-28 12:42 | Outpatient (BNV) | payer MEDICARE, SELFPAY | PROVIDERS: PCP Internal Medicine | DX: Z45.2 Encounter for adjustment and management of vascular access device (principal) | CPT/HCPCS: 36590 ==

== ENCOUNTER 2025-01-14 13:23 | Outpatient (AMB) | payer MEDICARE, SELFPAY ==
--- NOTE | 2025-01-14 13:57 | MHC.OFFVIS ---
Vital Signs 01/14/25 13:58 Height 5 ft 4 in Weight 167 lb 2 oz BMI 28.7 BP 136/76 Blood Pressure Location Rt brachial Position Sitting Pulse 63 Pulse Source Pulse Oximeter Pulse Oximetry (%) 96 Oxygen Delivery Method Room Air Intake Visit Reasons: 4m follow up Intake Note: Patient presents follow up ARABELLA. Compliance in chart(90/90days, >=4hrs-100%, Average Usage-8hr 30min, Pressure-9cm, Med leaks-0.1, AHI-1.1). Accompanied by: Self / Same As Patient Allergies No Known Allergies (No Known Allergies*) Allergy (Verified 01/14/25 14:01) HPI Comments Details: 74 year old male with h/o colon cancer presents for a f/u of sleep apnea. 07/17/2024 He completed the in-lab titration study breathing and oxygen stabilized at 5-9cmH20. ARABELLA Compliance Report September 2024 - Dec 2024 Total use is 90/90 days and >4hours 100% Avg use is 8 hours and 30min Median Press 9cmH20 and Leaks 0.cmH20 AHI is 1.1/hr He washes his mask, rinses hoses, changes filters, and fills reservoir with water. His sleeping patterns have improved since starting cpap therapy. He still goes to bed at midnight most nights, has 1 bathroom break, and wakes up at 9am. He feels refreshed in the mornings. He no longer snores or gasps for air at night. Denies parasthesias, denies symptoms of RLS. He has T2DM and is taking 15 units of Lantus daily. 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 His memory is poor, he forgets names, forgets tasks, misplaces articles, and has difficulty with name of streets when driving. 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 His mood is stable, diet is improving as he is being followed by a musculoskeletal physician and his founder for CKD stage 3, he is also being followed by Nephrology. [facility] Medical History Obstructive sleep apnea GERD without esophagitis Vitamin B [address] History of colon cancer Small bowel obstruction Coagulase negative Staphylococcus bacteremia Colon cancer Syncope Benign essential hypertension Overweight (BMI 25.0-29.9) Vitamin D deficiency Diabetes mellitus Pure hypercholesterolemia Surgical History Hx of surgical procedure (~08/02/23) History of colonoscopy (~2022) Status post laparotomy History of surgery Status post colon resection (~04/29/22) History of colonoscopy Family History Father Diabetes Hypertension Mother Diabetes Hypertension Mother Colon cancer Unknown Colon cancer Daughter Breast cancer Social History Household Members: Spouse Housing: House Are you a primary personal care assistant to a significant other at home: No Do you presently have visiting nurse or other home services: No Unable to assess alcohol history related to: Unknown Alcohol intake: never Patient Tobacco Use Status: Never used Tobacco e-Cigarette/Vaping Use: Never Used Second Hand Smoke Exposure: No Advance Directives Date on File: 12/24/21 service: No Current occupational status: retired Cognitive needs: No Hearing needs: No Vision needs: Yes Physical Exam Vital Signs: Last Vital Signs Pulse 63 01/14/25 13:58 BP 136/76 01/14/25 13:58 Pulse Ox 96 01/14/25 13:58 Oxygen Delivery Method Room Air 01/14/25 13:58 BMI result Body Mass Index 28.7 Const General: cooperative, comfortable and no acute distress Orientation/consciousness: patient oriented x3 Eyes Pupils: Equal, round and reactive pupils present Resp Effort & Inspection: normal respiratory effort and able to speak in complete sentences Neuro General: patient oriented x3 and moves all extremities Cranial nerves: Yes Facial sensation intact/muscles of mastication intact, Yes Equal, round and reactive pupils present, Yes Normal accommodation reflex present, Yes Normal facial strength present, Yes Midline tongue present, Yes Ability to bilaterally rotate head present and Yes Ability to bilaterally elevate shoulders present Gait exam (Neuro): Normal gait present Motor exam (neuro): 5/5 motor strength present throughout and tone not normal throughout Psych Appearance: grossly normal Affect: normal affect Thought content: Normal thought content present Insight: Good insight present (Psych) Results Reviewed Results Reviewed: ARABELLA Compliance Report September 2024 - Dec 2024 Total use is 90/90 days and >4hours 100% Avg use is 8 hours and 30min Median Press 9cmH20 and Leaks 0.cmH20 AHI is 1.1/hr He washes his mask, rinses hoses, changes filters, and fills reservoir with water. Assessment & Plan Assessment & Plan (1) ARABELLA on CPAP: Code(s): G47.33 - Obstructive sleep apnea (adult) (pediatric) Category: Medical (2) Forgetfulness: Code(s): R68.89 - Other general symptoms and signs Category: Medical (3) Obstructive sleep apnea: Code(s): G47.33 - Obstructive sleep apnea (adult) (pediatric) Category: Medical (4) Numbness and tingling of both feet: Onset Date: ~09/10/24 Code(s): R20.0 - Anesthesia of skin; R20.2 - Paresthesia of skin Category: Medical Plan ARABELLA on cpap therapy at 9cmH20 pt has refreshed sleep, continue cpat therapy and >4hours nightly. RLS/ Neuropathy of Bilateral feet, monitor for RLS, continue 400mg PO magnesium and b12 every other day, continue vitamin D3 daily at bedtime. Will check ferritin, mma, homocystein, b1, b6, b12 and folate. Labs reviewed with pt today. Supply order sent for cpap supplies. F/U in 6 months. Orders: Orders Methylmalonic Acid Today G47.9 - Sleep disorder, unspecified, R53.83 - Other fatigue, R68.89 - Other general symptoms and signs Homocysteine Today G47.9 - Sleep disorder, unspecified, R53.83 - Other fatigue, R68.89 - Other general symptoms and signs Vitamin B6 Today R68.89 - Other general symptoms and signs Ferritin Today R68.89 - Other general symptoms and signs Vitamin B12 and Folate Today R68.89 - Other general symptoms and signs Vitamin B1 Today R68.89 - Other general symptoms and signs Patient Instructions: Sleep Hygiene provided: set a scheduled bedtime and wake time to help regulate the circadian rhythm and balance the release of pituitary hormones. Sleep in a dark room, temperatures below 68 degrees, and no devices n bed. Limit caffeinated products 6 hours prior to bed, and limit fluids 2-4 hours prior to bed. Gentle night yoga, diffusing essential oils, and playing soft music can be relaxing. Coding Level of Care Code Est Pt Level 4 (59330) Diagnoses ARABELLA on CPAP G47.33 Forgetfulness R68.89 Obstructive sleep apnea G47.33 Numbness and tingling of both feet R20.0; R20.2
[2025-01-14 13:58] VITALS: BP 136/76; PULSE 63; O2SAT 96; BMI 28.7
== END 2025-01-14 14:40 | disposition home or self-care (01) ==
LOC: HO.HSMS 13:23
PROVIDERS: PCP Internal Medicine; Visit Provider Physician Assistant Medical
DX: G47.33 Obstructive sleep apnea (adult) (pediatric) (principal); R68.89 Other general symptoms and signs; R20.0 Anesthesia of skin; R20.2 Paresthesia of skin
CPT/HCPCS: 99214

== ENCOUNTER → 2025-01-14 13:23 | Outpatient (BNVA) | payer MEDICARE, SELFPAY | PROVIDERS: PCP Internal Medicine; Visit Provider Physician Assistant Medical | DX: G47.33 Obstructive sleep apnea (adult) (pediatric) (principal); R68.89 Other general symptoms and signs; R20.0 Anesthesia of skin; R20.2 Paresthesia of skin | CPT/HCPCS: 99212 ==

== ENCOUNTER 2025-02-26 07:09 | Outpatient (REF) | payer MEDICARE, SELFPAY ==
--- OUTSIDE RECORDS SUMMARY | 2025-02-26 07:13 | XMS_ITS | Clinical Summary ---
Author Organization [facility] Address [address] [place] [id number] Phone Care Team Providers Care Softball Coach Name Role Phone Unavailable Primary Care Provider [...]
--- OUTSIDE RECORDS SUMMARY | 2025-02-26 07:13 | XMS_ITS | Clinical Summary ---
Author Organization [facility] Facility Address [address] [place] [id number] Care Team Providers Care Osteology Teacher Name Role Phone Unavailable Primary Care Provider [...] to complete this topic Insurance Medicare [facility] Medicare [facility]
[2025-02-26 07:37] LABS: MANUAL DIFF FLAG NO
[2025-02-26 07:59] LABS: Hematocrit 44.6 % (42.0-52.0); Hemoglobin 14.5 g/dl (14.0-18.0); Imm Gran Abs Auto 0.04 X10*3/uL (0.00-0.03); Imm Gran Pct Auto 0.5 % (0.0-0.4); Lymphocytes Absolute Auto 1.6 X10*3/uL (1.2-4.9); Mean Corpuscular HGB Conc 32.5 g/dl (31.0-36.0); Mean Corpuscular Hemoglobin 26.9 pg (27.0-33.0); Mean Corpuscular Volume 82.7 fL (80.0-98.0); NRBC Abs Auto 0.000 X10*3/uL (0.0-0.012); NRBC Pct Auto 0.0 /100WBC (0.0-0.2); Platelet Count 150 X10*3/uL (160-400); Red Blood Count 5.39 X10*6/uL (4.60-5.80); White Blood Count 8.5 X10*3/uL (4.8-10.8)
[2025-02-26 08:32] LABS: Alanine Aminotransferase 24 U/L (0-40); Albumin Level 4.4 g/dL (3.5-5.0); Alkaline Phosphatase 94 U/L (39-117); Anion Gap 13 (12-20); Aspartate Amino Transferase 28 U/L (5-37); Blood Urea Nitrogen 21 mg/dL (9-16); Calcium 8.8 mg/dL (8.4-10.2); Carbon Dioxide 24 mmol/L (22-29); Chloride 109 mmol/L (96-108); Cholesterol 157 mg/dL (<200); Estimated Glomerular Filt Rate 55; HDL Cholesterol 39 mg/dL (>40); Potassium 4.1 mmol/L (3.3-5.1); Sodium 142 mmol/L (135-145); Total Protein 7.0 g/dL (6.5-8.0); Triglycerides 63 mg/dL (<150)
[2025-02-26 08:32] LABS: Appearance Urine Clear; Glucose Urine UA Negative (Negative); PH 5.5 (5.0-9.0); Specific Gravity - Urine 1.025 (1.005-1.025)
[2025-02-26 08:49] LABS: Microalbum/Creatinine Ratio Ur 44.1 ug/mg cr (<30)
[2025-02-26 08:58] LABS: Folate 7.4 ng/mL (> or = 4.0); Vitamin B12 850 pg/mL (200-900)
== END 2025-02-26 07:10 | disposition home or self-care (01) ==
LOC: HO.LAB 07:09
PROVIDERS: Absent Provider Internal Medicine Hypertension Specialist; PCP Internal Medicine; Referring Provider Internal Medicine; Visit Provider Physician Assistant Medical
DX: E11.9 Type 2 diabetes mellitus without complications (principal); E53.8 Deficiency of other specified B group vitamins; R30.0 Dysuria; E55.9 Vitamin D deficiency, unspecified; D64.9 Anemia, unspecified; E78.00 Pure hypercholesterolemia, unspecified
CPT/HCPCS: 36415; 80053; 80061; 81003; 82043; 82306; 82570; 82607; 82746; 84443; 85025

== ENCOUNTER 2025-03-06 16:33 | Outpatient (AMB) | payer MEDICARE, SELFPAY ==
[2025-03-06 16:39] VITALS: BP 142/80; PULSE 66; O2SAT 96; BMI 28.3
--- NOTE | 2025-03-06 16:39 | A.OFFPC_ITS ---
Vital Signs 03/06/25 16:39 Height 5 ft 4 in Weight 165 lb BMI 28.3 BP 142/80 H Blood Pressure Location Lt brachial Position Sitting Pulse 66 Pulse Source Pulse Oximeter Pulse Oximetry (%) 96 Oxygen Delivery Method Room Air Intake Visit Reasons: DM, hyperlipidemia, Hx colon cancer Chemist Pharmaceutical Required: No Accompanied by: Self / Same As Patient Allergies No Known Allergies (No Known Allergies*) Allergy (Verified 03/06/25 17:29) Medication List - Last Reconciled 03/06/25 by Bimal Lepe MD amlodipine 5 mg PO DAILY 90 days atorvastatin 10 mg PO BEDTIME 90 days [BD Ultra Fine Floridalma Pen Needle 32 G x Use as directed up to 4 times a day] blood sugar diagnostic (FreeStyle Test strips) As directed blood sugar diagnostic (FreeStyle Lite Strips) Test four times a day or as directed. 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,casting house laborer,cont (FreeStyle Keily 3 Anson) As directed cetirizine 10 mg PO DAILY cholecalciferol (vitamin D3) 25 mcg PO DAILY cyanocobalamin (vitamin B-12) (Vitamin B-12) 50 mcg PO DAILY flash glucose scanning reader (FreeStyle Keily 2 Anson) As directed flash glucose scanning reader (FreeStyle Keily 2 Anson) As directed flash glucose sensor (FreeStyle Keily 2 Sensor kit) APPLY ONCE EVERY 14 DAYS DIRECTED flash glucose sensor (FreeStyle Keily 2 Sensor kit) As directed [iron-vitamins 300 mg PO DAILY] lancets (FreeStyle Lancets) Test four times a day or as directed. Lantus Solostar U-100 Insulin (insulin glargine) 10 units (0.1 mL) subcut QPM NS losartan 25 mg PO DAILY magnesium oxide 400 mg PO DAILY 90 days pantoprazole 40 mg PO DAILY@0630 pen needle, diabetic Use four times a day or as directed. Tobacco use date assessed: 03/06/25 Fall risk assessment: No Falls in past year Last assessed Fall Risk: 03/06/25 Dental Screening Dental Screen Date: 03/06/25 Did you have a dental visit in the last 12 months?: Yes Did you have a dental problem in the last 6 months where you did not have access to dental care?: No Was dental information given to patient?: Patient has dentist HPI DM, hyperlipidemia, Hx colon cancer HPI Details Patient comes in today for his follow-up visit States that he feels okay He denies any headaches or dizziness Denies any chest pains, no shortness of breath No nausea/vomiting, no abdominal pain No change in bowel habits noted He had his follow-up labs done last week - to discuss his results [facility] Medical History Obstructive sleep apnea GERD without esophagitis Vitamin B [address] History of colon cancer Small bowel obstruction Coagulase negative Staphylococcus bacteremia Colon cancer Syncope Benign essential hypertension Overweight (BMI 25.0-29.9) Vitamin D deficiency Diabetes mellitus Pure hypercholesterolemia Surgical History Hx of surgical procedure (~08/02/23) History of colonoscopy (~2022) Status post laparotomy History of surgery Status post colon resection (~04/29/22) History of colonoscopy Family History Father Diabetes Hypertension Mother Diabetes Hypertension Mother Colon cancer Unknown Colon cancer Daughter Breast cancer Social History Household Members: Spouse Housing: House Are you a primary palliative care coordinator to a significant other at home: No Do you presently have visiting nurse or other home services: No Alcohol intake: never Patient Tobacco Use Status: Never used Tobacco e-Cigarette/Vaping Use: Never Used Second Hand Smoke Exposure: No Advance Directives Date on File: 12/24/21 service: No Current occupational status: retired Cognitive needs: No Hearing needs: No Vision needs: Yes Questionnaire PHQ-9 Over the last 2 weeks, how often have you been bothered by any of the following problems? 1. Little interest or pleasure in doing things: not at all 2. Feeling down, depressed, or hopeless: not at all 3. Trouble falling or staying asleep, or sleeping too much: not at all 4. Feeling tired or having little energy: not at all 5. Poor appetite or overeating: not at all 6. Feeling bad about yourself - or that you are a failure or have let yourself or your family down: not at all 7. Trouble concentrating on things, such as reading the newspaper or watching television: not at all 8. Moving or speaking so slowly that other people could have noticed. Or the opposite - being so fidgety or restless that you have been moving around a lot more than usual: not at all 9. Thoughts that you would be better off or of hurting yourself in some way: not at all Total score: 0 Depression Screening Interpretation: Negative Depression Screening Done: Yes 57837 - PHQ-9 Billing: Yes Source: Developed by Drs. Cooper Beck, Gertrude Vega, Santo Tejada and colleagues, with an educational otto from [employer]. Thrive Questionnaire Date Thrive assessed: 03/06/25 I am a: Patient What is your living situation today?: I have a steady place to live Within the past 12 months, did the food you bought not last and you didn't have the money to get more?: Never true Within the past 12 months, did you worry whether your food would run out before you got money to buy more?: Never true Do you have trouble paying for medicines?: No Do you have trouble getting transportation to medical appointments?: No Do you have trouble paying your heating and electricity bill?: No Do you have trouble taking care of your child, family member or friend?: No Do you have trouble with day-to-day activities such as bathing, preparing meals, shopping, managing finances, etc.?: No Are you currently unemployed and looking for a job?: No Are you interested in more education?: No Please select the resources that you would like help with: None Currently or been in a relationship where the following occur: No concerns reported THRIVE Score: 0 AUDIT C Alcohol Use Questionnaire (AUDIT-C) 1. How often do you have a drink containing alcohol?: Never 3. How often do you have six or more drinks on one occasion?: Never Total Score: 0 Score Reviewed/Action Taken: Yes AALIYAH-7 AMB Questionnaire AALIYAH-7 Date AALIYAH - 7 assessed: 03/06/25 Feeling nervous, anxious, or on edge: 0 = Not at all Not being able to stop or control worryin = Not at all Worrying too much about different things: 0 = Not at all Trouble relaxin = Not at all Being so restless that it is hard to sit still: 0 = Not at all Becoming easily annoyed or irritable: 0 = Not at all Feeling afraid as if something awful might happen: 0 = Not at all Total AALIYAH-7 score (0-4 normal; 5-9 mild; 10-14 moderate; 15-21 severe): 0 Source: Developed by Drs. Cooper Beck, Gertrude Vega, Santo Tejada and colleagues, with an educational otto from [employer]. Review of Systems Const Denies chills, Denies fatigue, Denies fever(s) and Denies headache(s) ENT Denies dysphagia, Denies dizziness, Denies otalgia, Denies headache(s), Denies neck pain, Denies odynophagia and Denies sore throat Card Denies chest pain, Denies palpitations and Denies dyspnea Resp Denies chest congestion, Denies cough and Denies dyspnea GI Denies abdominal pain, Denies constipation, Denies dysphagia, Denies heartburn, Denies diarrhea, Denies nausea, Denies odynophagia and Denies vomiting Denies dysuria, Denies nocturia and Denies urinary frequency Musc Denies back pain and Denies neck pain Skin/Breast Denies rash Neuro Denies dizziness and Denies headache(s) Endo Denies fatigue and Denies palpitations Physical exam (Primary Care) Vital Signs: Last Vital Signs Pulse 66 03/06/25 16:39 BP 142/80 H 03/06/25 16:39 Pulse Ox 96 03/06/25 16:39 Oxygen Delivery Method Room Air 03/06/25 16:39 BMI result Body Mass Index 28.3 Tobacco/Smoking Status: Tobacco use Status Tobacco use date assessed 03/06/25 03/06/25 16:45 Patient Tobacco Use Status Never used Tobacco 03/06/25 16:45 e-Cigarette/Vaping Use Never Used 03/06/25 16:45 PHQ-9: PHQ-9 Score PHQ-9: Total score 0 03/06/25 17:35 Depression Screening Interpretation: Negative Thrive Assessment: Date of Thrive Assessment Date Thrive assessed 11/12/25 11/12/25 16:45 Currently or been in a relationship where the following occur: No concerns reported Const General: no acute distress and alert HENMT Ears: TM's normal bilaterally and EAC's normal Throat: Yes posterior oropharynx normal and Yes tonsils normal Neck Neck: Yes supple and No lymphadenopathy Thyroid: Thyroid normal Resp Auscultation: clear to auscultation bilaterally, no rales and no wheezes Cardio Rate: regular rate Rhythm: regular rhythm Heart sounds: no murmurs GI Palpation (GI): Soft to palpation and nontender Auscultation: normal bowel sounds General: Yes no CVA tenderness Back/Spine/Pelvis Back: no CVA tenderness Thoracic/Lumbar Spine: No lumbar spinal tenderness Skin Rashes: no rashes Extrem General: Yes no clubbing, cyanosis or edema Results Reviewed Results Reviewed: Laboratory Tests 02/26/25 02/26/25 07:31 07:35 WBC 8.5 Hgb 14.5 Hct 44.6 Plt Count 150 L Sodium 142 Potassium 4.1 Creatinine 1.28 Estimated GFR 55 Fasting Glucose 142 H Calcium 8.8 AST 28 ALT 24 Triglycerides 63 Cholesterol 157 LDL Cholesterol, Calc 106 H HDL Cholesterol 39 L Vitamin B12 850 25-OH Vitamin D Total 34.8 TSH 1.27 Ur Specific [place] 1.025 Urine Protein Trace Urine Glucose (UA) Negative Urine Blood Negative Urine Nitrite Negative Ur Leukocyte Esterase Negative Microalb/Creat Ratio 44.1 H Coding Level of Care Code Est Pt Level 4 (09499) Diagnoses 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 Colon location: transverse Obstructive sleep apnea G47.33 Type 2 diabetes mellitus with hyperglycemia, without long-term current use of insulin E11.65 Diabetes mellitus complication status: with hyperglycemia Diabetes mellitus ad terminal makeup operator insulin use: without ad terminal makeup operator use Diabetes mellitus type: type 2 Benign essential hypertension I10 Pure hypercholesterolemia E78.00 Vitamin D deficiency E55.9 Stage 3a chronic kidney disease N18.31 Chronic kidney disease stage 3 subtype: stage 3a (GFR 45-59) GERD without esophagitis K21.9 Overweight (BMI 25.0-29.9) E66.3 Additional Codes PHQ-9 - 49439 - PHQ-9 Billing: Yes ([id number]) Assessment & Plan Assessment & Plan (1) Colon cancer: Code(s): C18.9 - Malignant neoplasm of colon, unspecified Category: Medical Qualifiers: Colon location: transverse Qualified Code(s): C18.4 - Malignant neoplasm of transverse colon Plan: S/P laparotomy and resection of proximal transverse colon, with diverting loop ileostomy on 04/29/[address] Fam Pathology revealed invasive adenocarcinoma, with tumor perforating the visceral peritoneum (pT4a), focal high grade adenomatous dysplasia and lymph nodes and anastomotic tissues negative for tumor (pN0) He completed adjuvant chemotherapy (modified FOLFOX 6 regimen) although he developed SBO due to adhesions back in December 2022 and required exploratory laparotomy with lysis of extensive adhesions He had his loop ileostomy reversed successfully on 08/02/[address] done most recently in June [address] evidence of residual or recurrent disease Follow-up with oncology and with surgery as scheduled for continuing surveillance (2) Obstructive sleep apnea: Code(s): G47.33 - Obstructive sleep apnea (adult) (pediatric) Category: Medical Plan: Home sleep study done in May 2024 revealed (+) severe obstructive sleep apnea Continue use of CPAP at 9 cm of water pressure daily at night when sleeping Follow up with Sleep Medicine as scheduled (3) Diabetes mellitus: Code(s): E11.9 - Type 2 diabetes mellitus without complications Category: Medical Qualifiers: Diabetes mellitus complication status: with hyperglycemia Diabetes mellitus ad terminal makeup operator insulin use: without group home use Diabetes mellitus type: type 2 Qualified Code(s): E11.65 - Type 2 diabetes mellitus with hyperglycemia Plan: Inexplicably, the lab did not include his HgbA1c when he had his labs done last week and the order is still in his chart His HgbA1c was at 6.5% when last checked a few month ago (was previously at 6.3% earlier this year) - goal is < 7.0% Reinforced diabetic diet Continue Humalog TID with meals dosed per sliding scale; continue Lantus 10 units SQ Q HS Metformin ER 500 mg was discontinued due to [place]; he was also taken off Januvia 50 mg by endocrinology last year (4) Benign essential hypertension: Code(s): I10 - Essential (primary) hypertension Category: Medical Plan: Reinforced low sodium diet - goal is systolic BP of at least 140 mm or less Continue Amlodipine 5 mg QD He was previously on Lisinopril 20 mg QD but this was discontinued when he presented to the ER last year in [place] Patient is reminded to continue monitoring his blood pressure regularly (5) Pure hypercholesterolemia: Code(s): E78.00 - Pure hypercholesterolemia, unspecified Category: Medical Plan: Results of his labs done last week reviewed and discussed with patient Reinforced low cholesterol diet Continue Atorvastatin 10 mg QD Will recheck his labs and fasting lipids in 4 months for follow up (6) Vitamin D deficiency: Code(s): E55.9 - Vitamin D deficiency, unspecified Category: Medical Plan: Continue Vitamin D3 1000 units QD (7) CKD (chronic kidney disease) stage 3, GFR 30-59 ml/min: Code(s): N18.30 - Chronic kidney disease, stage 3 unspecified Category: Medical Qualifiers: Chronic kidney disease stage 3 subtype: stage 3a (GFR 45-59) Qualified Code(s): N18.31 - Chronic kidney disease, stage 3a Plan: His renal function has stabilized over the past year Patient is again reminded to stay adequately hydrated all the time Will continue to monitor his renal function closely Follow-up with nephrology as scheduled (8) GERD without esophagitis: Code(s): K21.9 - Gastro-esophageal reflux disease without esophagitis Category: Medical Plan: Dietary restrictions reinforced Continue Pantoprazole 40 mg QD (9) Overweight (BMI 25.0-29.9): Code(s): E66.3 - Overweight Category: Medical Plan: Reinforced diet/exercise as tolerated/lose weight Plan Follow up in 4 months Orders: Orders Microalbumin, Random (w Creat) 4 Months E11.9 - Type 2 diabetes mellitus without complications TSH reflex Free T4 4 Months E78.00 - Pure hypercholesterolemia, unspecified UA CC w/rflx Micro + Cult 4 Months R30.0 - Dysuria Hemoglobin A1c 4 Months E11.9 - Type 2 diabetes mellitus without complications Complete Blood Count Auto Diff 4 Months D64.9 - Anemia, unspecified Comprehensive [place]. Panel Fast 4 Months E78.00 - Pure hypercholesterolemia, unspecified Lipid Panel 4 Months E78.00 - Pure hypercholesterolemia, unspecified Vitamin D 25-OH Total 4 Months E55.9 - Vitamin D deficiency, unspecified Vitamin B12 and Folate 4 Months E53.8 - Deficiency of other specified B group vitamins
--- OUTSIDE RECORDS SUMMARY | 2025-03-06 19:07 | XMS_ITS | Clinical Summary ---
Author Organization [facility] Facility Address [address] [place] [id number] Care Team Providers Care Internet Specialist Name Role Phone Unavailable Primary Care Provider [...] to complete this topic Insurance Medicare [facility] Medicare [facility]
--- OUTSIDE RECORDS SUMMARY | 2025-03-06 19:07 | XMS_ITS | Clinical Summary ---
Author Organization [facility] Address [address] [place] [phone] Phone Care Team Providers Care Sulfur Burner Name Role Phone Unavailable Primary Care Provider [...] It is not the complete legal health record.[facility]
== END 2025-03-06 17:40 | disposition home or self-care (01) ==
LOC: HO.HMCH 16:34
PROVIDERS: PCP Internal Medicine; Visit Provider Internal Medicine
DX: I12.9 Hypertensive chronic kidney disease with stage 1 through stage 4 chronic kidney disease, or unspecified chronic kidney disease (principal); E11.65 Type 2 diabetes mellitus with hyperglycemia; C18.4 Malignant neoplasm of transverse colon; N18.31 Chronic kidney disease, stage 3a; G47.33 Obstructive sleep apnea (adult) (pediatric); E78.00 Pure hypercholesterolemia, unspecified; E55.9 Vitamin D deficiency, unspecified; K21.9 Gastro-esophageal reflux disease without esophagitis; E66.3 Overweight

== ENCOUNTER → 2025-03-06 16:33 | Outpatient (BNVA) | payer MEDICARE, SELFPAY | PROVIDERS: PCP Internal Medicine; Visit Provider Internal Medicine | DX: E11.65 Type 2 diabetes mellitus with hyperglycemia (principal); C18.4 Malignant neoplasm of transverse colon; G47.33 Obstructive sleep apnea (adult) (pediatric); I12.9 Hypertensive chronic kidney disease with stage 1 through stage 4 chronic kidney disease, or unspecified chronic kidney disease; E11.22 Type 2 diabetes mellitus with diabetic chronic kidney disease; N18.31 Chronic kidney disease, stage 3a; E78.00 Pure hypercholesterolemia, unspecified; E55.9 Vitamin D deficiency, unspecified; K21.9 Gastro-esophageal reflux disease without esophagitis; E66.3 Overweight; Z68.28 Body mass index [BMI] 28.0-28.9, adult; Z71.3 Dietary counseling and surveillance | CPT/HCPCS: 96127; 99212 ==

== ENCOUNTER 2025-04-02 14:16 | Outpatient (AMB) | payer MEDICARE, SELFPAY ==
[2025-04-02 14:32] VITALS: BMI 28.2
--- NOTE | 2025-04-02 14:32 | MHC.AMNUTRGE ---
VS Expanded 04/02/25 14:32 Height 5 ft 4 in Weight 164 lb 8 oz BMI 28.2 Intake Visit Reasons: T2DM Allergies No Known Allergies (No Known Allergies*) Allergy (Verified 03/06/25 17:29) Nutrition Presentation Details: Patient presents for medical nutrition therapy follow-up for type 2 diabetes Patient reports doing well, blood sugars ranges in the 130 fasting and 209-120 at bedtime. Patient reports is on Lantus 10 units a day Patient reports having 3 meals a day: 1st meal maybe a sandwich with a eggs or with peanut butter and couple milk Lunch may be soup, or sandwich with tuna or ham and cheese and fruit Dinner rice beans and chicken and some water Snack may be fruit or crackers with peanut butter sometimes has low sugar cereal Physical activity reports keeping physically active as able greater than 30 minutes a day Denies any constipation or diarrhea Food frequency Fish: Twice per week Fruits 1-2 a day Dairy 1-2 a day Vegetables 2 to 3 times a week Beverages 36-40 oz a day, reports working on increasing fluid intake BS Monitoring Most Recent Diabetes Results: Microalb/Creat Ratio, (<30) 44.1 ug/mg cr H 02/26/25 Cholesterol, (<200) 157 mg/dL 02/26/25 HDL Cholesterol, (>40) 39 mg/dL L 02/26/25 Triglycerides, (<150) 63 mg/dL 02/26/25 Creatinine, (0.5-1.4) 1.28 mg/dL 02/26/25 BUN, (9-16) 21 mg/dL H 02/26/25 Sodium, (135-145) 142 mmol/L 02/26/25 Potassium, (3.3-5.1) 4.1 mmol/L 02/26/25 Chloride, (96-108) 109 mmol/L H 02/26/25 Carbon Dioxide, (22-29) 24 mmol/L 02/26/25 Calcium, (8.4-10.2) 8.8 mg/dL 02/26/25 AST, (5-37) 28 U/L 02/26/25 ALT, (0-40) 24 U/L 02/26/25 Total Protein, (6.5-8.0) 7.0 g/dL 02/26/25 Albumin, (3.5-5.0) 4.4 g/dL 02/26/25 [facility] Medical History Obstructive sleep apnea GERD without esophagitis Vitamin B [address] History of colon cancer Small bowel obstruction Coagulase negative Staphylococcus bacteremia Colon cancer Syncope Benign essential hypertension Overweight (BMI 25.0-29.9) Vitamin D deficiency Diabetes mellitus Pure hypercholesterolemia Surgical History Hx of surgical procedure (~08/02/23) History of colonoscopy (~2022) Status post laparotomy History of surgery Status post colon resection (~04/29/22) History of colonoscopy Family History Father Diabetes Hypertension Mother Diabetes Hypertension Mother Colon cancer Unknown Colon cancer Daughter Breast cancer Social History Household Members: Spouse Housing: House Are you a primary medicare sales executive to a significant other at home: No Do you presently have visiting nurse or other home services: No Alcohol intake: never Patient Tobacco Use Status: Never used Tobacco e-Cigarette/Vaping Use: Never Used Second Hand Smoke Exposure: No Advance Directives Date on File: 12/24/21 service: No Current occupational status: retired Cognitive needs: No Hearing needs: No Vision needs: Yes Assessment & Plan Assessment & Plan (1) Diabetes: Code(s): E11.9 - Type 2 diabetes mellitus without complications Category: Medical Plan: Today will review low-sodium food concepts used wt: 77kg on 10/17) Est kcal needs as per MSJ: 2000 (40% carb, 30% protein/fat) Est fluid needs as per 25-30 ml/d: 1875- 2250 Est prot per day as per 1 g/kg bw: 75 Recommend fiber intake : 8-10 g per day and gradually increase as tolerated Recommend sodium intake per day : less than 2000 mg Educated patient on: ( R = reviewed V = verbalizes understanding N/R = needs review N/A = not applicable Food sources of carbohydrate, adequate serving sizes and its role in various health conditions: R ,V Differences between complex carbohydrates a simple carbohydrates, role of fiber in diet: R , V Differences between types of fats and role in diet (mono on saturated fat fatty acids, saturated fatty acids, trans fats): R, V Food sources of protein : R, V Food sources of sodium in salt and healthy modifications for heart health in kidney health: R V Vitamins and minerals: R Healthy plate method concept: R , V Physical activity: Benefits a precaution: R, V Hypoglycemia protocol (rule of 15): R, V Dietary prevention of Hyperglycemia: R , V Patient Instructions: Do not had additional salt to the food Choose low-sodium seasonings See lower sodium options to add in flavor to the food (see list printed) Coding Level of Care Code Nutr Indiv Subseq (42629) Diagnoses Diabetes E11.9 Time Spent (min) 30
--- OUTSIDE RECORDS SUMMARY | 2025-04-02 20:17 | XMS_ITS | Clinical Summary ---
Author Organization [facility] Address [address] [place] [phone] Phone Care Team Providers Care Business Control Specialist Name Role Phone Unavailable Primary Care [...] It is not the complete legal health record.[facility]
--- OUTSIDE RECORDS SUMMARY | 2025-04-02 20:17 | XMS_ITS | Clinical Summary ---
Author Organization [facility] Facility Address [address] [place] [id number] Care Team Providers Care Repeat Photocomposing Machine Operator Name Role Phone Unavailable Primary [...] age to complete this topic Insurance Medicare [facility] Medicare [facility]
== END 2025-04-02 14:58 | disposition home or self-care (01) ==
LOC: HO.ENCR 14:16
PROVIDERS: PCP Internal Medicine; Visit Provider Dietitian, Registered
DX: E11.9 Type 2 diabetes mellitus without complications (principal)

== ENCOUNTER → 2025-04-02 14:16 | Outpatient (BNVA) | payer MEDICARE, SELFPAY | PROVIDERS: PCP Internal Medicine; Visit Provider Dietitian, Registered | DX: E11.9 Type 2 diabetes mellitus without complications (principal); Z71.3 Dietary counseling and surveillance | CPT/HCPCS: 97803 ==